=== PATIENT | female | born 1935 ===

== ENCOUNTER 2020-03-09 10:31 | Outpatient (REF) | payer MEDICARE, SELFPAY | END 2020-03-09 10:32 | disposition home or self-care (01) | LOC: HO.LAB 10:31 | PROVIDERS: Visit Provider Internal Medicine | DX: Z20.828 Contact with and (suspected) exposure to other viral communicable diseases (principal) | CPT/HCPCS: C9803; U0003 ==

== ENCOUNTER 2020-03-26 10:41 | Emergency (ER) | payer MEDICARE, SELFPAY ==
[2020-03-26 11:04] VITALS: BP 165/63; BP 167/76; PULSE 90; PULSE 92; RESP 18; TEMP 36.7; O2SAT 98; O2SAT 99; BMI 34.7
--- NOTE | 2020-03-26 11:34 | PC.NURSE ---
pt ambulated to and from restroom 1 assist w steady gait.
--- NOTE | 2020-03-26 12:43 | ED_ITS ---
HPI - Allergic Reaction General Chief complaint: Allergic Reaction Stated complaint: allergic reaction Time Seen by Provider: 03/26/20 12:36 Source: patient Mode of arrival: EMS Limitations: language barrier ([employer]iter used) History of Present Illness HPI narrative: Patient is an 84-year-old Danish-speaking female now with a past medical history of IBS and GERD who was BIBA, stating she she woke up with an itchy swollen lower lip. She states she had her es tea before bed last night as she normally does. She did not eat or drink much yesterday besides that, denies any new foods, lotions, detergents or products. States she drinks es tea every night before bed and has never had an issue. Denies any history of environmental allergies or food allergy. Patient was given 25 mg of Benadryl IM [employer]. She also states her left ear is causing her pain, admits to somewhat reduced hearing, no discharge or fevers. She states she tried to use a Q-tip and got some earwax out but it still hurts. Related Data Home Medications Medication Instructions Recorded Confirmed [id number] 1 cap PO QID 01/26/20 01/26/20 24,000-76,000-120,000 unit capsule,delayed rel acetaminophen 500 mg tablet 0 mg PO 03/10/20 blood sugar diagnostic #10 ea 03/10/20 dulaglutide 0.75 mg/0.5 mL 0.75 mg SUBCUT QWEEK 03/10/20 subcutaneous pen injector insulin glargine U-300 conc 300 20 unit SUBCUT DAILY 03/10/20 unit/mL (1.5 mL) subcutaneous pen meclizine 25 mg tablet 25 mg PO DAILY PRN 03/10/20 pen needle, diabetic 32 gauge x #50 ea 03/10/20 tramadol 50 mg tablet 0 mg PO 03/10/20 trospium 60 mg capsule,extended 60 mg PO DAILY 03/10/20 release 24 hr Previous Rx's Medication Instructions Recorded lisinopril 30 mg tablet 30 mg PO DAILY #90 tab 01/18/20 blood-glucose meter #1 ea 01/27/20 omeprazole 20 mg capsule,delayed 20 mg PO BID #60 cap 02/17/20 release sitagliptin 100 mg tablet 100 mg PO DAILY 90 Days #90 tab 03/07/20 gabapentin 400 mg capsule 400 mg PO BID #180 cap 03/08/20 diphenhydramine HCl [Benadryl 25 mg PO Q6H PRN #30 tab 03/26/20 Allergy] epinephrine [EpiPen 2-Mariano] 0.3 mg IM Q10M PRN #1 ea 03/26/20 Allergies Allergy/AdvReac Type Severity Reaction Status Date / Time Iodinated Contrast Media Allergy Unknown UNKNOWN Verified 03/17/20 09:32 [IV CONTRAST] Review of Systems Review of Systems: Yes all other systems are reviewed and are negative FOR[facility]LY [facility] Past Medical History Surgical History History of ankle surgery History of bilateral cataract extraction History of cholecystectomy History of colonoscopy History of excision of mass Family History Family History Father No problems noted. Mother No problems noted. Family/Other Lung cancer Esophagus cancer Social History Social History Smoking Status: Never smoker Advance Directives: No Advance Directives Information Provided: No Physical Exam Vital Signs: Vital Signs: Last Vital Signs Temp 98.1 F 03/26/20 11:04 Pulse 92 03/26/20 11:04 Resp 18 03/26/20 11:04 BP 165/63 H 03/26/20 11:04 Pulse Ox 99 03/26/20 11:04 Body Mass Index 34.7 Const: General: cooperative, healthy appearing, comfortable, no acute distress and well developed Orientation/consciousness: patient oriented x3 HENMT: Head: Yes normal to inspection Ears: TM normal on the right and left TM abnormal (Completely blocked with earwax) General nose exam: Normal external nose present Face and sinus: Yes normal facial exam Mouth: tongue normal, moist mucous membranes, no audible dysphonia, no drooling, lip abnormal lower swelling; without lacerations, without lesions, without rashes and without fissure, No mouth trauma, no trismus and No restricted motion Teeth and gingiva: gingiva normal Throat: Yes posterior oropharynx normal, Yes tonsils normal, Yes uvula midline and No uvular edema Eyes: General: appearance normal, both eyes and all related structures Pupils: Equal, round and reactive pupils present EOM: EOMs intact bilaterally Neck: Neck: Yes normal visual inspection, Yes full ROM, Yes no lymphadenopathy, Yes trachea midline and Yes supple Resp: Effort & Inspection: normal respiratory effort and able to speak in complete sentences Auscultation: clear to auscultation bilaterally Cardio: Rate: regular rate Rhythm: regular rhythm Skin: General skin exam: no rashes or lesions noted Neuro: General: patient oriented x3 Cranial nerves: Yes Equal, round and reactive pupils present Course Course Course Narrative: 84-year-old Danish-speaking female be IV a after waking up with a swollen and itchy lower lip, also has a left ear pain. Will irrigate left ear. Patient received 25 mg Benadryl IM prior to arrival in the ambulance, will give prednisone and prescriptions for an EpiPen as well as more Benadryl. Had a lengthy discussion utilizing the president & founder about red flag warning signs and when to return to the ER as well as when to use the EpiPen. Explained the pharmacist can show her how to use the EpiPen once she picks it up. Advised to have workup with her primary care doctor as well. Patient verbalized understanding of instructions, when to call 911 and when to use her EpiPen, ans wered all of patient's questions. Procedures Ear Wax Removal Left Ear: Cerumenolytic Used: Colace Results: Re-examined: cerumen removed completely TM Examination: TM(s) intact, normal appearance Ear Canal Exam: atraumatic Patient Tolerated Procedure: well Complications: no problems Technique: ear canal irrigated Discharge Plan Discharge Clinical Impression: Impacted cerumen of left ear Angioedema Qualifiers: Encounter type: initial encounter Qualified Code(s): T78.3XXA - Angioneurotic edema, initial encounter Patient Disposition: Home, Self-Care Instructions: Angioedema (ED) Prescriptions: New diphenhydramine HCl [Benadryl Allergy] 25 mg tablet 25 mg PO Q6H PRN (Reason: allergic symptoms) Qty: 30 RF: 0 epinephrine [EpiPen 2-Mariano] 0.3 mg/0.3 mL auto-injector 0.3 mg IM Q10M PRN (Reason: anaphylaxis) Qty: 1 RF: 0 No Action lisinopril 30 mg tablet 30 mg PO DAILY Qty: 90 RF: 0 (DME) blood-glucose meter [FreeStyle Seymour Lite] Kit See Rx Instructions .ROUTE .MEDSUPPLY Qty: 1 RF: 0 omeprazole 20 mg capsule,delayed release(DR/EC) 20 mg PO BID Qty: 60 RF: 1 sitagliptin 100 mg tablet 100 mg PO DAILY 90 Days Qty: 90 RF: 0 gabapentin 400 mg capsule 400 mg PO BID Qty: 180 RF: 1 trospium 60 mg capsule,extended release 24hr 60 mg PO DAILY RF: 0 Toujeo SoloStar U-300 Insulin 300 unit/mL (1.5 mL) insulin pen 20 unit subcut DAILY RF: 0 (DME) FreeStyle Lite Strips Strip See Rx Instructions ea Not Applicable BID Qty: 10 RF: 0 meclizine 25 mg tablet 25 mg PO DAILY PRNRF: 0 Trulicity 0.75 mg/0.5 mL pen injector 0.75 mg subcut QWEEK RF: 0 acetaminophen 500 mg tablet 0 mg PO RF: 0 tramadol 50 mg tablet 0 mg PO RF: 0 (DME) pen needle, diabetic 32 gauge x 5/32 needle See Rx Instructions ea .ROUTE .MEDSUPPLY Qty: 50 RF: 0 Creon 24,000-76,000 -120,000 unit capsule,delayed release(DR/EC) 1 cap PO QID RF: 0 Referrals: Brit Mills MD [Physician] - 2 days (allergic reaction work up, epi pen rx'd) Print Language: Danish
[2020-03-26] MEDS: Docusate Sodium 100 MG/10 ML LIQUID PO (13:01)
[2020-03-26] MEDS: predniSONE 20 MG TABLET 40 MG PO (13:01)
--- NOTE | 2020-03-26 13:46 | PC.NURSE ---
pt ear irrigated w colace by mlp at bedside. medicated w prednisone per emar, plan for discharge w prescriptions.
== END 2020-03-26 13:48 | disposition home or self-care (01) ==
PROVIDERS: Emergency Provider Emergency Medicine Emergency Medical Services
DX: T78.3XXA Angioneurotic edema, initial encounter (principal); X58.XXXA Exposure to other specified factors, initial encounter; H61.22 Impacted cerumen, left ear
CPT/HCPCS: 69209; 99283

== ENCOUNTER 2020-07-11 14:57 | Outpatient (REF) | payer MEDICARE, SELFPAY ==
--- NOTE | 2020-07-11 15:07 | ECG_ITS ---
Test Reason : PREOP Blood Pressure : / mmHG Vent. Rate : 092 BPM Atrial Rate : 092 BPM P-R Int : 160 ms QRS Dur : 144 ms QT Int : 398 ms P-R-T Axes : 049 -08 086 degrees QTc Int : 492 ms Normal sinus rhythm Left bundle branch block Abnormal ECG When compared with ECG of 07-OCT-2019 15:45, No significant change was found Referred By: Rico Deras Electronically Signed By:JORGE LIAO
[2020-07-11 15:40] LABS: Hematocrit 31.3 % (37-47); Hemoglobin 9.9 g/dl (12.0-16.0); Mean Corpuscular HGB Conc 31.6 g/dl (31.0-35.0); Mean Corpuscular Hemoglobin 29.5 pg (27.0-33.0); Mean Corpuscular Volume 93.2 fL (80-98); Mean Platelet Volume 10.2 fL (9.4-12.3); Platelet Count 239 X10*3/uL (160-400); Red Blood Count 3.36 X10*6/uL (4.20-5.50); Red Cell Distribution Width 12.7 % (11.0-16.0); White Blood Count 5.5 X10*3/uL (4.8-10.8)
[2020-07-11 15:58] LABS: Estimated Average Glucose 117 mg/dL; Hemoglobin A1c % 5.7 %
[2020-07-11 16:05] LABS: Alanine Aminotransferase 19 U/L (0-31); Albumin Level 4.3 g/dL (3.5-5.0); Alkaline Phosphatase 100 U/L (39-117); Anion Gap 11 (12-20); Aspartate Amino Transferase 20 U/L (5-31); Bilirubin Direct < 0.2 mg/dL (0.0-0.5); Bilirubin Total 0.3 mg/dL (0.0-1.0); Blood Urea Nitrogen 18 mg/dL (9-16); Calcium 8.8 mg/dL (8.4-10.2); Carbon Dioxide 27 mmol/L (22-29); Chloride 106 mmol/L (96-108); Cholesterol 140 mg/dL; Estimated Glomerular Filt Rate 56; Glucose Random 117 mg/dL (60-115); HDL Cholesterol 31 mg/dL; LDL Cholesterol Calculated 60 mg/dl; Sodium 139 mmol/L (135-145); Total Protein 7.1 g/dL (6.5-8.0); Triglycerides 248 mg/dL
[2020-07-11 16:26] LABS: Thyroid Stimulating Hormone 1.25 uIU/mL (0.32-4.0)
== END 2020-07-11 14:58 | disposition home or self-care (01) ==
LOC: HO.LAB 14:57
PROVIDERS: PCP Internal Medicine; Visit Provider Internal Medicine
DX: Z01.818 Encounter for other preprocedural examination (principal); E11.9 Type 2 diabetes mellitus without complications
CPT/HCPCS: 36415; 80048; 80061; 80076; 83036; 84443; 85027; 93005

== ENCOUNTER → 2020-08-23 09:02 | Outpatient (BNVA) | payer MEDICARE, SELFPAY | PROVIDERS: PCP Internal Medicine; Referring Provider Internal Medicine; Visit Provider Internal Medicine Cardiovascular Disease | DX: Z01.810 Encounter for preprocedural cardiovascular examination (principal); I11.9 Hypertensive heart disease without heart failure; I44.7 Left bundle-branch block, unspecified | CPT/HCPCS: 99212 ==

== ENCOUNTER → 2020-09-27 10:16 | Outpatient (REF) | payer MEDICARE, SELFPAY ==
--- NOTE | ~2020-09-27 | NM_ITS ---
Lexiscan Myocardial perfusion study Indication: Abnormal EKG, left bundle branch block, preoperative evaluation, assess for coronary disease and ischemia Technique: The patient was brought in for a Lexiscan perfusion study on 09/27/2020 and was injected 0.4 mg of Lexiscan intravenously. Within a minute of this injection 25 mCi of sestamibi was given intravenously. Images were obtained using the SPECT gamma camera interlaced with the gating device. Images were obtained in supine position. Resting perfusion study was performed on 09/28/2020. Patient was administered 25 mCi of sestamibi intravenously at rest. Images were then obtained in supine position. Total DLP 102mGy-cm. Images were processed with the software and compared side to side in short axis, horizontal long axis and vertical long axis views. Findings: Raw acquisition was reviewed. The stress perfusion study showed mildly diminished tracer uptake in the distal part of inferior wall. With CT attenuation correction this is still seen. The gated study shows normal LV systolic function with calculated LVEF of 63%. LV cavity is normal in size. The gated study shows normal wall thickening and contraction of segments. Resting study shows no significant perfusion abnormality. With attenuation correction, there is a small apical inferior defect. Gating at rest reveals normal wall motion with ejection fraction at 63%. The findings are consistent with small apical inferior fixed defect that is probably artifactual. No reversible defects. NM/NM claritza perf SPECT rest & str Impression: 1. Myocardial perfusion imaging study shows no definitive evidence of any ischemia or infarction. Likely normal perfusion. 2. Gated LVEF is 63% during stress and 56% during rest. 3. Transient ischemic dilatation not present. EKG component of the test reported separately.
--- NOTE | 2020-09-27 10:30 | CA_ITS ---
Acquisition Time: 2020-09-27 10:28:13 Total Exercise Time: 00:02:00 Test Indications: ABN EKG, SOB, LBBB, PREOP Medications: SEE CHART Protocol: LEXISCAN Max HR: 103 BPM 75% of Pred: 136 BPM Max BP: 130/060 mmHG Max Work Load: 1.0 METS Pharmacological stress test with Lexiscan injection, while sitting, without anginal symptoms, with isolated PVCs, with normotensive response to injection, with nondiagnostic EKG for ischemia. In recovery she reported headache and blurred vision that was treated with Aminophylline 75mg IVP to reverse Lexican with resolution of symptoms. Nuclear images pending. Test reviewed with Dr Gunn. Referred By: Fredo Gunn Overread By: PRABHU PALM
== END ==
LOC: HO.CARD 10:16
PROVIDERS: Visit Provider Internal Medicine Cardiovascular Disease
DX: Z01.810 Encounter for preprocedural cardiovascular examination (principal); I44.7 Left bundle-branch block, unspecified
CPT/HCPCS: 78452; 93017; A9500; J0280; J2785

== ENCOUNTER → 2020-10-10 11:12 | Outpatient (BNVA) | payer MEDICARE, SELFPAY | PROVIDERS: PCP Internal Medicine; Visit Provider Internal Medicine Cardiovascular Disease | DX: Z01.810 Encounter for preprocedural cardiovascular examination (principal); I11.9 Hypertensive heart disease without heart failure | CPT/HCPCS: Q3014 ==

== ENCOUNTER 2020-12-16 11:42 | Outpatient (REF) | payer MEDICARE, SELFPAY ==
[2020-12-16 12:10] LABS: MANUAL DIFF FLAG NO
[2020-12-16 12:14] LABS: Basophils Percent Auto 0.2 % (0-2); Eosinophils Absolute Auto 0.1 X10*3/uL (0.0-0.4); Eosinophils Percent Auto 2.2 % (0-4); Hematocrit 30.2 % (37-47); Hemoglobin 9.8 g/dl (12.0-16.0); Imm Gran Abs Auto 0.01 X10*3/uL (0.00-0.03); Imm Gran Pct Auto 0.2 % (0.0-0.4); Lymphocytes Absolute Auto 1.4 X10*3/uL (1.2-4.9); Lymphocytes Percent Auto 29.3 % (20-40); Mean Corpuscular HGB Conc 32.5 g/dl (31.0-35.0); Mean Corpuscular Hemoglobin 29.7 pg (27.0-33.0); Mean Corpuscular Volume 91.5 fL (80-98); Mean Platelet Volume 10.1 fL (9.4-12.3); Monocytes Absolute Auto 0.3 X10*3/uL (0.1-1.2); Monocytes Percent Auto 7.4 % (2-11); Neutrophils Absolute Auto 2.8 X10*3/uL (2.0-8.3); Neutrophils Percent Auto 60.7 % (45-73); Platelet Count 204 X10*3/uL (160-400); Red Cell Distribution Width 12.5 % (11.0-16.0); White Blood Count 4.6 X10*3/uL (4.8-10.8)
[2020-12-16 12:45] LABS: INTERNATIONAL NORM RATIO 0.9 (0.9-1.1); Prothrombin Time 10.2 SEC (9.9-13.0)
[2020-12-16 13:19] LABS: Folate 17.1 ng/mL (> or = 4.0); Vitamin B12 514 pg/mL (200-900)
[2020-12-16 13:21] LABS: Partial Thromboplastin Time 23.6 SEC (24.1-38.0)
[2020-12-16 13:26] LABS: Alanine Aminotransferase 14 U/L (0-31); Albumin Level 4.1 g/dL (3.5-5.0); Alkaline Phosphatase 94 U/L (39-117); Anion Gap 10 (12-20); Aspartate Amino Transferase 19 U/L (5-31); Bilirubin Total 0.4 mg/dL (0.0-1.0); Blood Urea Nitrogen 16 mg/dL (9-16); Calcium 8.9 mg/dL (8.4-10.2); Carbon Dioxide 26 mmol/L (22-29); Chloride 108 mmol/L (96-108); Estimated Glomerular Filt Rate > 60; Glucose Random 85 mg/dL (60-115); Iron 68 mcg/dL (30-160); Percent Iron Saturation 22 % (15-50); Potassium 5.4 mmol/L (3.3-5.1); Sodium 139 mmol/L (135-145); Total Iron Binding Capacity 309 mcg/dL (228-428); Total Protein 6.7 g/dL (6.5-8.0); Unsaturated Iron Binding 241 ug/dL
== END 2020-12-16 11:43 | disposition home or self-care (01) ==
LOC: HO.LAB 11:42
PROVIDERS: PCP Internal Medicine; Visit Provider Internal Medicine
DX: Z01.818 Encounter for other preprocedural examination (principal); D50.9 Iron deficiency anemia, unspecified; D64.9 Anemia, unspecified; E53.8 Deficiency of other specified B group vitamins
CPT/HCPCS: 36415; 80053; 82607; 82746; 83540; 85025; 85610; 85730

== ENCOUNTER 2021-08-11 09:33 | Outpatient (REF) | payer OTHER, SELFPAY ==
--- NOTE | ~2021-08-11 | FL_ITS ---
EXAMINATION: XR FLUOROSCOPY UPPER GI WITH AIR CLINICAL INFORMATION: Dysphagia COMPARISON: None TECHNIQUE: Upper GI was performed using thin and thick barium and effervescent granules. Exam is limited due to difficult patient mobility. 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 There is fold thickening in the stomach. No mass, stricture or ulcer is seen. There is gastroesophageal reflux. No hernia is seen. There is a duodenal diverticulum. FLUOROSCOPY TIME: 1.7 minutes DOSE AREA PRODUCT: 13.6 g/cm2. 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 Gastroesophageal reflux. Limited evaluation of the stomach and duodenum due to difficult patient mobility. There is question of fold thickening of the stomach.
== END 2021-08-11 09:34 | disposition home or self-care (01) ==
LOC: HO.XRAY 09:33
PROVIDERS: PCP Internal Medicine; Visit Provider Internal Medicine Gastroenterology
DX: R13.10 Dysphagia, unspecified (principal)
CPT/HCPCS: 74246

== ENCOUNTER 2021-09-12 10:53 | Outpatient (REF) | payer OTHER, SELFPAY ==
[2021-09-12 11:52] LABS: Appearance Urine HAZY; Color Urine YELLOW; Glucose Urine UA NEG (NEG); Leukocyte Esterase Urine 1+ (NEG); Nitrite Urine NEG (NEG); Specific Gravity - Urine 1.015 (1.005-1.025); Urine Blood TRACE (NEG); Urine Ketones NEG (NEG); Urine Protein 1+ MG/DL (NEG-TRACE)
[2021-09-12 11:52] LABS: Hematocrit 31.7 % (37.0-47.0); Hemoglobin 10.2 g/dl (12.0-16.0); Mean Corpuscular HGB Conc 32.2 g/dl (31.0-35.0); Mean Corpuscular Hemoglobin 29.5 pg (27.0-33.0); Mean Corpuscular Volume 91.6 fL (80.0-98.0); Mean Platelet Volume 10.5 fL (9.4-12.3); Platelet Count 235 X10*3/uL (160-400); Red Blood Count 3.46 X10*6/uL (4.20-5.50); White Blood Count 5.3 X10*3/uL (4.8-10.8)
[2021-09-12 11:57] LABS: Alanine Aminotransferase 12 U/L (0-31); Albumin Level 4.2 g/dL (3.5-5.0); Alkaline Phosphatase 102 U/L (39-117); Anion Gap 12 (12-20); Aspartate Amino Transferase 17 U/L (5-31); Bilirubin Direct < 0.2 mg/dL (0.0-0.5); Bilirubin Total 0.2 mg/dL (0.0-1.0); Blood Urea Nitrogen 22 mg/dL (9-16); Calcium 9.1 mg/dL (8.4-10.2); Carbon Dioxide 27 mmol/L (22-29); Chloride 105 mmol/L (96-108); Cholesterol 184 mg/dL; Estimated Glomerular Filt Rate 59; Glucose Random 110 mg/dL (60-115); HDL Cholesterol 26 mg/dL; Potassium 5.6 mmol/L (3.3-5.1); Sodium 138 mmol/L (135-145); Total Protein 7.4 g/dL (6.5-8.0); Triglycerides 658 mg/dL
[2021-09-12 12:19] LABS: Thyroid Stimulating Hormone 1.06 uIU/mL (0.32-4.0)
[2021-09-12 12:41] LABS: Bacteria Urine 2+ /LPF; Mucus Urine 1+ /LPF; RBC Urine 0-2 /HPF (0); Squamous Epithelial Cell Urine TRACE /LPF
== END 2021-09-12 10:54 | disposition home or self-care (01) ==
LOC: HO.LAB 10:53
PROVIDERS: PCP Internal Medicine; Visit Provider Internal Medicine
DX: D64.9 Anemia, unspecified (principal)
CPT/HCPCS: 36415; 80048; 80061; 80076; 81001; 84443; 85027

== ENCOUNTER 2021-11-15 19:34 | Emergency (ER) | payer OTHER, SELFPAY ==
--- NOTE | ~2021-11-15 | XR_ITS ---
EXAMINATION: XR CHEST CLINICAL INFORMATION: This is an 86-year-old female with chest pain. COMPARISON: None TECHNIQUE: Frontal view of the chest was obtained. FINDINGS: There is mild cardiomegaly. There are bilateral peripheral increased interstitial lung markings evident. This could represent interstitial edema or inflammation. No consolidation is seen. There is no pneumothorax. The diaphragm is sharp and no effusions are seen. Degenerative changes are noted within the glenohumeral joints bilaterally. XR/XR chest 1V IMPRESSION: 1. Mild cardiomegaly with increased interstitial lung markings. The possibility of interstitial edema should be considered.
--- NOTE | ~2021-11-15 | CT_ITS ---
EXAMINATION: CT HEAD WITHOUT CONTRAST CLINICAL INFORMATION: Dizziness COMPARISON: 03/28/2019 TECHNIQUE: Contiguous axial imaging was performed from the skull base to vertex without intravenous contrast. This CT examination was performed using dose optimization techniques as appropriate, variously including the following: * Automated exposure control * Adjustment of mA and/or kV according to patient size (this includes techniques or standardized protocols for targeted exams where dose is matched to indication/reason for exam; i.e. extremities or head) Use of iterative reconstruction technique DLP: 630 mGy-cm. FINDINGS: There is no evidence of acute intracranial hemorrhage or territorial infarction. No abnormal mass effect or midline shift is seen. Tran to white matter differentiation is well preserved. No extra-axial fluid collections are identified. No hydrocephalus. Proportional prominence of the ventricles and sulcal spaces is consistent with mild volume loss. Patchy periventricular and deep white matter hypoattenuation is consistent with moderate small vessel ischemic changes. The osseous structures and soft tissues are normal. The mastoid air cells and visualized portions of the paranasal sinuses are well aerated. CT/CT head/brain wo con IMPRESSION: No acute intracranial pathology. Chronic volume loss with small vessel ischemic change.
[2021-11-15 19:44] VITALS: BP 127/55; PULSE 98; RESP 18; TEMP 36.7; O2SAT 98; BMI 28.3
--- NOTE | 2021-11-15 19:49 | ECG_ITS ---
Test Reason : chest pain Blood Pressure : / mmHG Vent. Rate : 087 BPM Atrial Rate : 087 BPM P-R Int : 166 ms QRS Dur : 148 ms QT Int : 416 ms P-R-T Axes : 039 -09 107 degrees QTc Int : 500 ms Normal sinus rhythm Left bundle branch block Abnormal ECG When compared with ECG of 11-JUL-2020 15:13, No significant change was found Referred By: Generic ED Physician Electronically Signed By:KEREN DENISE
[2021-11-15 20:13] LABS: MANUAL DIFF FLAG NO
[2021-11-15 20:16] LABS: Basophils Percent Auto 0.3 % (0-2); Eosinophils Absolute Auto 0.1 X10*3/uL (0.0-0.4); Eosinophils Percent Auto 1.7 % (0-4); Hematocrit 29.4 % (37.0-47.0); Hemoglobin 9.9 g/dl (12.0-16.0); Imm Gran Abs Auto 0.02 X10*3/uL (0.00-0.03); Imm Gran Pct Auto 0.3 % (0.0-0.4); Lymphocytes Absolute Auto 1.6 X10*3/uL (1.2-4.9); Mean Corpuscular HGB Conc 33.7 g/dl (31.0-35.0); Mean Corpuscular Volume 92.2 fL (80.0-98.0); Mean Platelet Volume 11.3 fL (9.4-12.3); Monocytes Absolute Auto 0.5 X10*3/uL (0.1-1.2); Monocytes Percent Auto 6.5 % (2-11); Neutrophils Absolute Auto 4.8 x10*3/uL (2.0-8.3); Neutrophils Percent Auto 68.2 % (45-73); Platelet Count 209 X10*3/uL (160-400); Red Blood Count 3.19 X10*6/uL (4.20-5.50); Red Cell Distribution Width 12.9 % (11.0-16.0)
[2021-11-15 20:30] LABS: COVID-19 Test Negative (Negative); IDNOW Serial# 55D5AD1C
[2021-11-15 20:32] LABS: Anion Gap 14 (12-20); Blood Urea Nitrogen 26 mg/dL (9-16); Calcium 8.6 mg/dL (8.4-10.2); Carbon Dioxide 24 mmol/L (22-29); Chloride 108 mmol/L (96-108); Creatinine Clr Calc Pharmacy 37.3; Estimated Glomerular Filt Rate 49; Glucose Random 201 mg/dL (60-115); Potassium 5.1 mmol/L (3.3-5.1); Sodium 141 mmol/L (135-145)
[2021-11-15 20:43] LABS: Troponin-I High Sensitivity 145.1 ng/L (<3.5-17.0)
--- NOTE | 2021-11-15 20:58 | ED.CHESTPAIN ---
HPI - Chest Pain General Chief Complaint: Chest Pain Stated Complaint: body aches, dizziness Time Seen by Provider: 11/15/21 20:58 Source: patient, family and motor vehicle parts interpreter Mode of arrival: ambulatory History of Present Illness HPI narrative: 86-year-old female with history of diabetes, high blood pressure, as well as dizziness who presents to the emergency room with worsening dizziness from her baseline since yesterday. Patient reports that she has been dizzy for ?a long time? and that she takes meclizine for this and typically throughout the day feels otherwise well. She describes this dizziness as the room spinning and that it is primarily when she changes position from sitting to standing. Patient states that yesterday she took her medication, but noted she did not have any improvement in her symptoms. She denies any recent fever, chills, new cough, sore throat, shortness of breath, chest pain/palpitations and denies any GI symptoms but states she has noted urinary frequency. In terms of her ambulation, patient states that she has had difficulty with walking for over 4 months now. Otherwise, patient denies any changes in hearing, vision, speech but has noted that she has a headache during the times that she is feeling dizzy. Otherwise, she denies any unilateral numbness/tingling/weakness. Related Data Home Medications Medication Instructions Recorded Confirmed acetaminophen 500 mg tablet 500 mg PO Q8H 11/09/21 mirabegron 25 mg tablet,extended 25 mg PO DAILY 11/09/21 release 24 hr (Myrbetriq) Previous Rx's Medication Instructions Recorded blood-glucose meter (FreeStyle #1 ea 01/27/20 [place] Lite kit) epinephrine 0.3 mg/0.3 mL 0.3 mg (0.3 mL) IM Q10M PRN 03/26/20 injection, auto-injector (EpiPen anaphylaxis #1 ea 2-Mariano) blood pressure monitor (Blood #1 ea 06/06/20 Pressure Kit) blood sugar diagnostic (FreeStyle 1 strip miscellaneous BID for 08/31/20 Lite Strips) diabetes mellitus #100 strips pen needle, diabetic 32 gauge x 1 ea miscellaneous DAILY #100 ea 09/08/2032 (BD Alisa 2nd Gen Pen Needle) omeprazole 20 mg capsule,delayed 20 mg PO DAILY #90 caps 04/20/21 release commode (bedside commode) #1 ea 06/12/21 diaper,brief,adult,disposable #100 ea 06/12/21 amlodipine 5 mg tablet 5 mg PO DAILY #90 tabs 06/16/21 insulin glargine U-300 conc 300 20 unit (0.0667 mL) subcut DAILY 08/09/21 unit/mL (1.5 mL) subcutaneous pen #3 mL (Toujeo SoloStar U-300 Insulin) sitagliptin 100 mg tablet (Januvia) 100 mg PO DAILY #90 tabs 08/24/21 gabapentin 400 mg capsule 400 mg PO BID #180 caps 09/28/21 tramadol 50 mg tablet 50 mg PO BID PRN pain 30 days #60 09/28/21 tabs dulaglutide 0.75 mg/0.5 mL 0.75 mg (0.5 mL) subcut QWEEK #12 10/31/21 subcutaneous pen injector mL (Trulicity) losartan 50 mg tablet 50 mg PO DAILY #90 tabs 11/09/21 Allergies Allergy/AdvReac Type Severity Reaction Status Date / Time Iodinated Contrast Media Allergy Unknown UNKNOWN Verified 11/15/21 19:43 [IV CONTRAST] Review of Systems Review of Systems: Pertinent positives and negatives as stated in HPI 10 point review of systems is otherwise negative. [facility] Past Medical History Source: nursing notes reviewed Medical History Bladder prolapse Chronic kidney disease, stage III (moderate) Diabetes mellitus GERD (gastroesophageal reflux disease) Hypertensive heart disease Left bundle branch block Mixed hyperlipidemia Obesity (BMI 30-39.9) Surgical History History of ankle surgery History of bilateral cataract extraction History of bladder repair surgery History of cholecystectomy History of colonoscopy History of ERCP History of excision of mass Family History Family History Father No problems noted. Mother No problems noted. Family/Other Lung cancer Esophagus cancer Other Mental health disorder Substance use disorder Social History Social History Housing: House Alcohol intake: never Patient Tobacco Use Status: Former Tobacco user e-Cigarette/Vaping Use: Never Used Second Hand Smoke Exposure: Yes Advance Directives: Yes Advance Directives Information Provided: No Advance Directives on File: No service: No Current occupational status: disabled Cognitive needs: Yes (cane/walker) Hearing needs: No Vision needs: Yes (glasses) Physical Exam Vital Signs: Vital Signs: Last Vital Signs Temp 98.7 F 11/15/21 21:06 Pulse 88 11/16/21 04:16 Resp 18 11/16/21 04:16 BP 177/67 H 11/16/21 04:16 Pulse Ox 97 11/16/21 04:16 O2 Del Method 11/16/21 04:16 BMI result Body Mass Index 28.3 VITAL SIGNS: Reviewed. GENERAL: Well developed, well nourished, in no acute distress. HEAD: Normocephalic/atraumatic EYES: PERRLA, EOMI EARS: Ext canals without abnormality NOSE: Nares patent bilateral OROPHARYNX: no oral lesions noted, posterior pharynx clear NECK: Supple, no adenopathy LUNGS: Normal breath sounds. No adventitious sounds or accessory muscle use. SpO2<98> CARDIOVASCULAR: Regular rate and rhythm without noted murmurs, no JVD or lower extremity edema. ABDOMEN: Soft, non-tender, non-distended with bowel sounds. MUSCULOSKELETAL: No tenderness, deformities, or effusions noted on gross inspection. EXTREMITIES: No cyanosis, clubbing or edema. SKIN: Inspection of the skin reveals no rashes NEUROLOGIC: Alert and oriented x 4. Strength and sensation to light touch were grossly intact x 4, no facial asymmetry, no pronator drift, cranial nerves 2-12 are grossly intact. Course Course Course Narrative: 86-year-old female with history and clinical presentation consistent with possible infectious etiology although will need to evaluate further for this and at worst possible posterior stroke that is at this point subacute in nature and felt to be far less likely. Patient has no gross motor or sensory deficits. Review of all investigations with elevated troponin and no comparison, but not associated with acute changes on EKG and patient is asymptomatic for chest pain/palpitations/shortness of breath. Although initially discuss this patient's case with the inpatient hospitalist patient was noted to have positive orthostatics, received 500 cc of IV fluids, and on re-evaluation with ambulation patient states that she feels much better. This was discussed further with the inpatient hospitalist is and patient was informed of all results and plans and will be discharged home in stable condition with instructions to follow-up with her primary care provider. Neurologic etiology is still felt to be unlikely, I did discuss the troponin variations with Cardiology and agree that these are essentially flat especially taken in the context that the patient is not experiencing chest pain nor is she experiencing any associated cardiac symptoms such as diaphoresis/shortness of breath/palpitations. Patient is otherwise discharged home in stable condition with strict instructions for her follow-up with her primary care provider. MDM - Chest Pain Lab Data Result diagrams: 11/15/21 19:55 11/15/21 19:55 Labs: Lab Results 11/15/21 11/15/21 11/15/21 Range/Units 19:55 19:55 19:55 WBC 7.0 (4.8-10.8) X10*3/uL RBC 3.19 L (4.20-5.50) X10*6/uL Hgb 9.9 L (12.0-16.0) g/dl Hct 29.4 L (37.0-47.0) % MCV 92.2 (80.0-98.0) fL MCH 31.0 (27.0-33.0) pg MCHC 33.7 (31.0-35.0) g/dl RDW 12.9 (11.0-16.0) % Plt Count 209 (160-400) X10*3/uL MPV 11.3 (9.4-12.3) fL Immature Gran % (Auto) 0.3 (0.0-0.4) % Neut % (Auto) 68.2 (45-73) % Lymph % (Auto) 23.0 (20-40) % Chaves % (Auto) 6.5 (2-11) % Eos % (Auto) 1.7 (0-4) % Baso % (Auto) 0.3 (0-2) % Lymph # (Auto) 1.6 (1.2-4.9) X10*3/uL Chaves # (Auto) 0.5 (0.1-1.2) X10*3/uL Eos # (Auto) 0.1 (0.0-0.4) X10*3/uL Baso # (Auto) 0.0 (0.0-0.2) X10*3/uL Abs Immat Gran (auto) 0.02 (0.00-0.03) X10*3/uL Absolute Neuts (auto) 4.8 (2.0-8.3) x10*3/uL Absolute Nucleated RBC 0.000 (0.0-0.012) X10*3/uL Nucleated RBC % (auto) 0.0 (0.0-0.2) /100WBC Sodium 141 (135-145) mmol/L Potassium 5.1 (3.3-5.1) mmol/L Chloride 108 (96-108) mmol/L Carbon Dioxide 24 (22-29) mmol/L Anion Gap 14 (12-20) BUN 26 H (9-16) mg/dL Creatinine 1.07 (0.5-1.4) mg/dL Estim Creat Clear Calc 37.3 Estimated GFR 49 Random Glucose 201 H (60-115) mg/dL Calcium 8.6 (8.4-10.2) mg/dL Troponin I High Sens 145.1 H* (<3.5-17.0) ng/L B-Natriuretic Peptide (<100) pg/mL Urine Color Urine Appearance Urine pH (5.0-8.0) Ur Specific Fletcher (1.005-1.025) Urine Protein (Neg-Trace) mg/dL Urine Glucose (UA) (Negative) mg/dL Urine Ketones (Negative) mg/dL Urine Blood (Negative) Urine Nitrite (Negative) Ur Leukocyte Esterase (Negative) COVID-19 (JOSE) (Negative) COVID-19 Clin Com 11/15/21 11/15/21 11/15/21 Range/Units 19:55 21:58 22:01 WBC (4.8-10.8) X10*3/uL RBC (4.20-5.50) X10*6/uL Hgb (12.0-16.0) g/dl Hct (37.0-47.0) % MCV (80.0-98.0) fL MCH (27.0-33.0) pg MCHC (31.0-35.0) g/dl RDW (11.0-16.0) % Plt Count (160-400) X10*3/uL MPV (9.4-12.3) fL Immature Gran % (Auto) (0.0-0.4) % Neut % (Auto) (45-73) % Lymph % (Auto) (20-40) % Chaves % (Auto) (2-11) % Eos % (Auto) (0-4) % Baso % (Auto) (0-2) % Lymph # (Auto) (1.2-4.9) X10*3/uL Chaves # (Auto) (0.1-1.2) X10*3/uL Eos # (Auto) (0.0-0.4) X10*3/uL Baso # (Auto) (0.0-0.2) X10*3/uL Abs Immat Gran (auto) (0.00-0.03) X10*3/uL Absolute Neuts (auto) (2.0-8.3) x10*3/uL Absolute Nucleated RBC (0.0-0.012) X10*3/uL Nucleated RBC % (auto) (0.0-0.2) /100WBC Sodium (135-145) mmol/L Potassium (3.3-5.1) mmol/L Chloride (96-108) mmol/L Carbon Dioxide (22-29) mmol/L Anion Gap (12-20) BUN (9-16) mg/dL Creatinine (0.5-1.4) mg/dL Estim Creat Clear Calc Estimated GFR Random Glucose (60-115) mg/dL Calcium (8.4-10.2) mg/dL Troponin I High Sens 119.3 H* (<3.5-17.0) ng/L B-Natriuretic Peptide 47 (<100) pg/mL Urine Color Yellow Urine Appearance Clear Urine pH 5.5 (5.0-8.0) Ur Specific Fletcher 1.010 (1.005-1.025) Urine Protein Negative (Neg-Trace) mg/dL Urine Glucose (UA) Negative (Negative) mg/dL Urine Ketones Negative (Negative) mg/dL Urine Blood Negative (Negative) Urine Nitrite Negative (Negative) Ur Leukocyte Esterase Negative (Negative) COVID-19 (JOSE) Negative (Negative) COVID-19 Clin Com See Note 11/16/21 Range/Units 06:09 WBC (4.8-10.8) X10*3/uL RBC (4.20-5.50) X10*6/uL Hgb (12.0-16.0) g/dl Hct (37.0-47.0) % MCV (80.0-98.0) fL MCH (27.0-33.0) pg MCHC (31.0-35.0) g/dl RDW (11.0-16.0) % Plt Count (160-400) X10*3/uL MPV (9.4-12.3) fL Immature Gran % (Auto) (0.0-0.4) % Neut % (Auto) (45-73) % Lymph % (Auto) (20-40) % Chaves % (Auto) (2-11) % Eos % (Auto) (0-4) % Baso % (Auto) (0-2) % Lymph # (Auto) (1.2-4.9) X10*3/uL Chaves # (Auto) (0.1-1.2) X10*3/uL Eos # (Auto) (0.0-0.4) X10*3/uL Baso # (Auto) (0.0-0.2) X10*3/uL Abs Immat Gran (auto) (0.00-0.03) X10*3/uL Absolute Neuts (auto) (2.0-8.3) x10*3/uL Absolute Nucleated RBC (0.0-0.012) X10*3/uL Nucleated RBC % (auto) (0.0-0.2) /100WBC Sodium (135-145) mmol/L Potassium (3.3-5.1) mmol/L Chloride (96-108) mmol/L Carbon Dioxide (22-29) mmol/L Anion Gap (12-20) BUN (9-16) mg/dL Creatinine (0.5-1.4) mg/dL Estim Creat Clear Calc Estimated GFR Random Glucose (60-115) mg/dL Calcium (8.4-10.2) mg/dL Troponin I High Sens 178.9 H* (<3.5-17.0) ng/L B-Natriuretic Peptide (<100) pg/mL Urine Color Urine Appearance Urine pH (5.0-8.0) Ur Specific Fletcher (1.005-1.025) Urine Protein (Neg-Trace) mg/dL Urine Glucose (UA) (Negative) mg/dL Urine Ketones (Negative) mg/dL Urine Blood (Negative) Urine Nitrite (Negative) Ur Leukocyte Esterase (Negative) COVID-19 (JOSE) (Negative) COVID-19 Clin Com ECG Data ECG #1: Attestation: I personally reviewed and interpreted this ECG as follows: Prior ECG tracings: available for review Interpretation: SR, HR-87, LBBB, no STEMI, CO within normal limits, QRS/QTC are prolonged. ECG #2: Attestation: I personally reviewed and interpreted this ECG as follows: Prior ECG tracings: available for review Interpretation: Sinus rhythm, HR-82, LBBB, no STEMI, CO/QTC are within normal limits. Discharge Plan Discharge Clinical Impression: Dizziness, Gait instability, Elevated troponin, Volume depletion Patient Disposition: Home, Self-Care Instructions: Dizziness (ED), Lightheadedness (ED), Vertigo (ED), High Troponin Levels (ED), Dehydration (ED) Additional Instructions: 1. Reanudar todos los medicamentos caseros. 2. Contin?e bebiendo dannie agua. 3. Andre un seguimiento con de león proveedor de atenci?n primaria llamando a la oficina hoy y programando luke maegan para luke reevaluaci?n. Regrese a la gordy de emergencias si los s?ntomas empeoran. Prescriptions: No Action (DME) blood-glucose meter [FreeStyle [place] Lite] Kit See Rx Instructions .ROUTE .MEDSUPPLY Qty: 1 0RF Rx Instructions: As directed (DME) blood pressure monitor [Blood Pressure Kit] Kit See Rx Instructions .ROUTE .MEDSUPPLY Qty: 1 0RF Rx Instructions: As directed FreeStyle Lite Strips Strip 1 strip miscellaneous BID Qty: 100 0RF pen needle, diabetic [BD Alisa 2nd Gen Pen Needle] 32 gauge x 5/32 needle 1 ea miscellaneous DAILY Qty: 100 1RF (DME) bedside commode Kit See Rx Instructions .Route Qty: 1 0RF Rx Instructions: As directed (DME) diaper,brief,adult,disposable Misc See Rx Instructions .Route Qty: 100 0RF Rx Instructions: As directed amlodipine 5 mg tablet 5 mg PO DAILY Qty: 90 1RF Zoë GainseoStar U-300 Insulin 300 unit/mL (1.5 mL) insulin pen 20 unit subcut DAILY Qty: 3 0RF Januvia 100 mg tablet 100 mg PO DAILY Qty: 90 1RF tramadol 50 mg tablet 50 mg PO BID PRN (Reason: pain) 30 Days Qty: 60 0RF gabapentin 400 mg capsule 400 mg PO BID Qty: 180 0RF Trulicity 0.75 mg/0.5 mL pen injector 0.75 mg subcut QWEEK Qty: 12 0RF epinephrine [EpiPen 2-Mariano] 0.3 mg/0.3 mL auto-injector 0.3 mg IM Q10M PRN (Reason: anaphylaxis) Qty: 1 0RF Rx Instructions: for 2 doses acetaminophen 500 mg tablet 500 mg PO Q8H Myrbetriq 25 mg tablet extended release 24 hr 25 mg PO DAILY losartan 50 mg tablet 50 mg PO DAILY Qty: 90 1RF omeprazole 20 mg capsule,delayed release(DR/EC) 20 mg PO DAILY Qty: 90 0RF Referrals: [facility] [Primary Care Provider] - Print Language: Angolan
[2021-11-15 21:06] VITALS: BP 143/60; PULSE 90; RESP 15; TEMP 37.1; O2SAT 98
[2021-11-15 22:07] LABS: Appearance Urine Clear; Color Urine Yellow; Glucose Urine UA Negative (Negative); Leukocyte Esterase Urine Negative (Negative); Nitrite Urine Negative (Negative); PH 5.5 (5.0-8.0); Urine Blood Negative (Negative); Urine Ketones Negative (Negative); Urine Protein Negative (Neg-Trace)
[2021-11-15 22:28] LABS: Troponin-I High Sensitivity 119.3 ng/L (<3.5-17.0)
[2021-11-15 23:01] LABS: B Type Natriuretic Peptide 47 pg/mL (<100)
[2021-11-15 23:29] VITALS: BP 160/53; PULSE 87
[2021-11-15 23:31] VITALS: BP 147/63; PULSE 90
[2021-11-15 23:33] VITALS: BP 148/70; PULSE 101
[2021-11-16 00:43] VITALS: BP 168/62; PULSE 91; RESP 17; O2SAT 98
[2021-11-16] MEDS: 0.9 % Sodium Chloride 500 ML 999 ML IV (00:56)
[2021-11-16 04:16] VITALS: BP 177/67; PULSE 88; RESP 18; O2SAT 97
--- NOTE | 2021-11-16 06:40 | ECG_ITS ---
Test Reason : REPEAT Blood Pressure : / mmHG Vent. Rate : 082 BPM Atrial Rate : 082 BPM P-R Int : 162 ms QRS Dur : 138 ms QT Int : 412 ms P-R-T Axes : 047 -02 117 degrees QTc Int : 481 ms Normal sinus rhythm Left bundle branch block Abnormal ECG When compared with ECG of 15-NOV-2021 19:49, No significant change was found Referred By: Laila Christian Electronically Signed By:KEREN DENISE
[2021-11-16 06:42] LABS: Troponin-I High Sensitivity 178.9 ng/L (<3.5-17.0)
== END 2021-11-16 07:27 | disposition home or self-care (01) ==
PROVIDERS: Emergency Medicine; Emergency Provider Student in an Organized Health Care Education/Training Program
DX: R42 Dizziness and giddiness (principal); I95.1 Orthostatic hypotension; R26.89 Other abnormalities of gait and mobility; R77.8 Other specified abnormalities of plasma proteins; E86.9 Volume depletion, unspecified; Z20.822 Contact with and (suspected) exposure to COVID-19; E11.22 Type 2 diabetes mellitus with diabetic chronic kidney disease; I12.9 Hypertensive chronic kidney disease with stage 1 through stage 4 chronic kidney disease, or unspecified chronic kidney disease; N18.30 Chronic kidney disease, stage 3 unspecified; E78.2 Mixed hyperlipidemia; Z79.4 Long term (current) use of insulin; Z79.899 Other long term (current) drug therapy
CPT/HCPCS: 36415; 70450; 71045; 80048; 81003; 83880; 84484; 85025; 87635; 93005; 99284

== ENCOUNTER → 2021-12-29 10:25 | Outpatient (BNVA) | payer OTHER, SELFPAY | PROVIDERS: PCP Internal Medicine; Visit Provider Internal Medicine Cardiovascular Disease | DX: I44.7 Left bundle-branch block, unspecified (principal); I11.9 Hypertensive heart disease without heart failure | CPT/HCPCS: 93005; 99212 ==

== ENCOUNTER 2022-02-27 10:47 | Outpatient (REF) | payer OTHER, SELFPAY ==
[2022-02-27 11:43] LABS: Appearance Urine Clear; Color Urine Yellow; Glucose Urine UA Negative (Negative); Leukocyte Esterase Urine Moderate (2+) (Negative); Nitrite Urine Negative (Negative); PH 6.5 (5.0-9.0); UMIC TRIGGER UA YES; Urine Blood Negative (Negative); Urine Ketones Negative (Negative); Urine Protein Trace mg/dL (Neg-Trace)
[2022-02-27 11:52] LABS: Bacteria Urine 4+ (None Seen); Hyaline Casts Urine 0-2 /LPF (0-2); RBC Urine 0-2 /HPF (0-2); WBC Urine 21-50 /HPF (0-5)
== END 2022-02-27 10:48 | disposition home or self-care (01) ==
LOC: HO.LAB 10:47
PROVIDERS: PCP Internal Medicine; Visit Provider Internal Medicine
DX: D64.9 Anemia, unspecified (principal)
CPT/HCPCS: 81001

== ENCOUNTER → 2022-04-19 12:30 | Outpatient (BNVA) | payer OTHER, SELFPAY | PROVIDERS: PCP Internal Medicine; Visit Provider Surgery | DX: K64.8 Other hemorrhoids (principal) | CPT/HCPCS: 46221; 46600; 99202 ==

== ENCOUNTER 2022-11-30 11:03 | Outpatient (AMB) | payer OTHER, SELFPAY ==
--- NOTE | 2022-11-30 11:11 | MHC.PC.OV ---
Vital Signs 11/30/22 11:18 Height 5 ft 4 in Weight 163 lb 8 oz BMI 28.1 BP 118/68 Blood Pressure Location Lt brachial Position Sitting Pulse 80 Pulse Source Pulse Oximeter Pulse Oximetry (%) 98 Oxygen Delivery Method Room Air Intake Visit Reasons: 3mth f/u Intake Note: Pt is here for 3 months F/U. Pt is requesting waits belt, overnight pad #7 to sent to [facility]. Stamping Die Try Out Worker Required: No Accompanied by: Granddaughter/CHARGER TESTER-Iriana Allergies Iodinated Contrast Media [IV CONTRAST] Allergy (Unknown, Verified 11/30/22 11:46) UNKNOWN Medication List - Last Reconciled 11/30/22 by GUILLERMINA Gerber acetaminophen 500 mg PO Q8H amlodipine 5 mg PO DAILY blood pressure monitor (Blood Pressure Kit) As directed blood sugar diagnostic (FreeStyle Lite Strips) 1 strip miscellaneous BID blood-glucose meter (FreeStyle [place] Lite kit) As directed commode (bedside commode) As directed diaper,brief,adult,disposable As directed dulaglutide (Trulicity) 0.75 mg (0.5 mL) subcut QWEEK epinephrine (EpiPen 2-Mariano) 0.3 mg (0.3 mL) IM Q10M PRN gabapentin 400 mg PO BID insulin glargine U-300 conc (Toujeo SoloStar U-300 Insulin) 20 units (0.0667 mL) subcut DAILY losartan 50 mg PO DAILY meclizine (Motion Sickness Relief (meclizine)) 25 mg PO DAILY PRN mirabegron ER (Myrbetriq) 50 mg PO DAILY omeprazole 20 mg PO DAILY pen needle, diabetic (BD Alisa 2nd Gen Pen Needle) 1 ea miscellaneous DAILY sitagliptin phosphate (Januvia) 100 mg PO DAILY tramadol 50 mg PO BID PRN 30 days Tobacco use date assessed: 05/17/22 Fall risk assessment: No Falls in past year Last assessed Fall Risk: 11/30/22 Dental Screening Dental Screen Date: 11/30/22 Did you have a dental visit in the last 12 months?: No Did you have a dental problem in the last 6 months where you did not have access to dental care?: No Was dental information given to patient?: Patient has dentist HPI HPI Comments History of Present Illness Details 87-year-old female past medical history significant for diabetes mellitus, GERD, anemia, hyperlipidemia, CKD stage 3,hypertensive heart disease. Patient last seen in July presents today for follow-up visit. Patient presents today with her CHARGER TESTER who is also her granduaghter, who aids in interpretation. Patient reports she does feel dizzy at times denies any syncope. Patient is on meclizine as needed for dizziness. Denies chest pain, palpitations, shortness of breath or syncope. Fasting labs ordered. Patient has upcoming echocardiogram scheduled on the and follow-up with Dr. Gunn. Patient's CHARGER TESTER is requesting an keep tell as patient is unsteady on her feet that time she is holding her pants to keep her study. Also requesting prescription for overnight pads number 7. [facility] Medical History Bladder prolapse Chronic kidney disease, stage III (moderate) Diabetes mellitus GERD (gastroesophageal reflux disease) Hypertensive heart disease Left bundle branch block Mixed hyperlipidemia Obesity (BMI 30-39.9) Prolapsed internal hemorrhoids Surgical History History of ankle surgery History of bilateral cataract extraction History of bladder repair surgery History of cholecystectomy History of colonoscopy History of ERCP History of excision of mass Family History Father No problems noted. Mother No problems noted. Family/Other Lung cancer Esophagus cancer Other Mental health disorder Substance use disorder Social History Housing: House Alcohol intake: never Patient Tobacco Use Status: Former Tobacco user e-Cigarette/Vaping Use: Never Used Second Hand Smoke Exposure: Yes service: No Current occupational status: disabled Cognitive needs: Yes (cane/walker) Hearing needs: No Vision needs: Yes (glasses) Questionnaire Thrive Questionnaire Date Thrive assessed: 05/17/22 MENDEL-7 AMB Questionnaire MENDEL-7 Date MENDEL - 7 assessed: 05/17/22 Source: Developed by Drs. Vu Harris, Huma Roque, Ronak Nichols and colleagues, with an educational yury from [employer] Review of Systems Const Denies chills, Denies fatigue, Denies fever(s) and Denies poor appetite Eyes Denies no additional complaints ENT Reports Normal hearing present Card Denies chest pain, Denies syncope, Denies rapid heart rate and Denies dyspnea Resp Denies cough and Denies dyspnea GI Denies change in stool character, Denies constipation, Denies diarrhea, Denies nausea and Denies vomiting Denies urinary frequency, Denies dysuria and Denies urinary urgency Neuro Reports Normal hearing present, Denies confusion and Denies syncope Psych Denies confusion Endo Denies fatigue Physical exam (Primary Care) Vital Signs: Last Vital Signs Pulse 80 11/30/22 11:18 BP 118/68 11/30/22 11:18 Pulse Ox 98 11/30/22 11:18 Oxygen Delivery Method Room Air 11/30/22 11:18 BMI result Body Mass Index 28.1 Tobacco/Smoking Status: Tobacco use Status Tobacco use date assessed 05/17/22 11/30/22 11:11 Patient Tobacco Use Status Former Tobacco user 11/30/22 11:11 e-Cigarette/Vaping Use Never Used 11/30/22 11:11 Thrive Assessment: Date of Thrive Assessment Date Thrive assessed 05/17/22 11/30/22 11:11 Const General: No confusion Orientation/consciousness: No confusion HENMT Head: Yes normocephalic and Yes atraumatic Eyes Conjunctivae: conjunctivae normal Chest Chest palpation & inspection: normal inspection of the chest Resp Effort & Inspection: normal respiratory effort Auscultation: clear to auscultation bilaterally, no crackles, no rhonchi and no wheezes Cardio Rate: regular rate Rhythm: regular rhythm Heart sounds: S1 normal heart sound present and S2 normal heart sound present GI Inspection: Yes normal to inspection Neuro General: No confusion Cranial nerves: Yes Normal hearing present Extrem General: No edema Assessment and Plan Assessment & Plan (1) Diabetes mellitus: Comment: IDDM Code(s): E11.9 - Type 2 diabetes mellitus without complications Qualifiers: Diabetes mellitus complication status: with other specified complication Diabetes mellitus residential insulin use: with terminal make up operator use Diabetes mellitus type: type 2 Qualified Code(s): E11.69 - Type 2 diabetes mellitus with other specified complication; Z79.4 - prison (current) use of insulin Plan: Continue on Trulicity, Toujeo and januvia. HGB A1C ordered. Patient educated to decrease the amount of carbohydrate intake such as pasta, bread, rice and potatoes are all sugar in addition to the sweet stuff. Remember that fruits are good but they also have sugar. (2) Chronic kidney disease, stage III (moderate): Code(s): N18.30 - Chronic kidney disease, stage 3 unspecified Plan: Patient reports that currently following with special forces officer. CMP ordered to follow-up on kidney function. (3) Mixed hyperlipidemia: Code(s): E78.2 - Mixed hyperlipidemia Plan: Fasting lipid panel ordered. (4) Anemia: Code(s): D64.9 - Anemia, unspecified Plan: CBC with diff ordered to follow-up on patient's anemia. Plan Follow-up in 3 months Orders: Orders Comprehensive Raymond. Panel Fast Today D64.9 - Anemia, unspecified Hemoglobin A1c Today E11.9 - Type 2 diabetes mellitus without complications Lipid Panel Today I11.9 - Hypertensive heart disease without heart failure TSH reflex Free T4 Today Z13.29 - Encounter for screening for other suspected endocrine disorder Complete Blood Count Auto Diff Today D64.9 - Anemia, unspecified Coding Level of Care Code Est Pt Level 4 (93639) Diagnoses Diabetes mellitus E11.69; Z79.4 Diabetes mellitus complication status: with other specified complication Diabetes mellitus terminal make up operator insulin use: with residential use Diabetes mellitus type: type 2 Chronic kidney disease, stage III (moderate) N18.30 Mixed hyperlipidemia E78.2 Anemia D64.9
[2022-11-30 11:18] VITALS: BP 118/68; PULSE 80; O2SAT 98; BMI 28.1
== END 2022-11-30 11:57 | disposition home or self-care (01) ==
PROVIDERS: PCP Internal Medicine; Visit Provider Nurse Practitioner Family
DX: E11.69 Type 2 diabetes mellitus with other specified complication (principal); Z79.4 Long term (current) use of insulin; N18.30 Chronic kidney disease, stage 3 unspecified; E78.2 Mixed hyperlipidemia; D64.9 Anemia, unspecified
CPT/HCPCS: 99214

== ENCOUNTER 2022-12-06 10:14 | Outpatient (REF) | payer OTHER, SELFPAY ==
[2022-12-06 10:28] LABS: MANUAL DIFF FLAG NO
[2022-12-06 11:05] LABS: Basophils Percent Auto 0.2 % (0-2); Eosinophils Absolute Auto 0.1 X10*3/uL (0.0-0.4); Eosinophils Percent Auto 2.4 % (0-4); Hematocrit 28.8 % (37.0-47.0); Hemoglobin 9.6 g/dl (12.0-16.0); Imm Gran Abs Auto 0.01 X10*3/uL (0.00-0.03); Imm Gran Pct Auto 0.2 % (0.0-0.4); Lymphocytes Absolute Auto 1.6 X10*3/uL (1.2-4.9); Lymphocytes Percent Auto 29.3 % (20-40); Mean Corpuscular HGB Conc 33.3 g/dl (31.0-35.0); Mean Corpuscular Hemoglobin 29.6 pg (27.0-33.0); Mean Corpuscular Volume 88.9 fL (80.0-98.0); Monocytes Absolute Auto 0.4 X10*3/uL (0.1-1.2); Monocytes Percent Auto 7.9 % (2-11); Neutrophils Absolute Auto 3.3 x10*3/uL (2.0-8.3); Platelet Count 237 X10*3/uL (160-400); Red Blood Count 3.24 X10*6/uL (4.20-5.50); Red Cell Distribution Width 13.5 % (11.0-16.0); White Blood Count 5.4 X10*3/uL (4.8-10.8)
[2022-12-06 11:10] LABS: Estimated Average Glucose 123 mg/dL; Hemoglobin A1c % 5.9 % (<6.0)
[2022-12-06 12:17] LABS: Alanine Aminotransferase 9 U/L (0-31); Albumin Level 3.9 g/dL (3.5-5.0); Alkaline Phosphatase 86 U/L (39-117); Anion Gap 10 (12-20); Aspartate Amino Transferase 17 U/L (5-31); Bilirubin Total 0.4 mg/dL (0.0-1.0); Blood Urea Nitrogen 9 mg/dL (9-16); Calcium 8.7 mg/dL (8.4-10.2); Carbon Dioxide 25 mmol/L (22-29); Chloride 110 mmol/L (96-108); Cholesterol 147 mg/dL (<200); Estimated Glomerular Filt Rate > 60; Glucose Fasting 111 mg/dL (60-99); HDL Cholesterol 34 mg/dL (>40); LDL Cholesterol Calculated 75 mg/dL (<100); Potassium 4.2 mmol/L (3.3-5.1); Sodium 141 mmol/L (135-145); Total Protein 6.7 g/dL (6.5-8.0); Triglycerides 193 mg/dL (<150)
== END 2022-12-06 10:15 | disposition home or self-care (01) ==
LOC: HO.LAB 10:14
PROVIDERS: PCP Internal Medicine; Visit Provider Nurse Practitioner Family
DX: Z13.29 Encounter for screening for other suspected endocrine disorder (principal); E11.9 Type 2 diabetes mellitus without complications; I11.9 Hypertensive heart disease without heart failure; D64.9 Anemia, unspecified
CPT/HCPCS: 36415; 80053; 80061; 83036; 84443; 85025

== ENCOUNTER 2023-02-26 10:18 | Outpatient (REF) | payer OTHER, SELFPAY ==
[2023-02-26 10:40] LABS: MANUAL DIFF FLAG NO
[2023-02-26 11:31] LABS: Basophils Percent Auto 0.4 % (0-2); Eosinophils Absolute Auto 0.1 X10*3/uL (0.0-0.4); Eosinophils Percent Auto 2.5 % (0-4); Hematocrit 30.9 % (37.0-47.0); Hemoglobin 10.1 g/dl (12.0-16.0); Imm Gran Abs Auto 0.02 X10*3/uL (0.00-0.03); Imm Gran Pct Auto 0.4 % (0.0-0.4); Lymphocytes Absolute Auto 1.8 X10*3/uL (1.2-4.9); Lymphocytes Percent Auto 35.1 % (20-40); Mean Corpuscular HGB Conc 32.7 g/dl (31.0-35.0); Mean Corpuscular Volume 91.7 fL (80.0-98.0); Mean Platelet Volume 10.3 fL (9.4-12.3); Monocytes Absolute Auto 0.4 X10*3/uL (0.1-1.2); Monocytes Percent Auto 7.8 % (2-11); Neutrophils Absolute Auto 2.8 x10*3/uL (2.0-8.3); Neutrophils Percent Auto 53.8 % (45-73); Platelet Count 241 X10*3/uL (160-400); Red Blood Count 3.37 X10*6/uL (4.20-5.50); Red Cell Distribution Width 12.9 % (11.0-16.0); White Blood Count 5.1 X10*3/uL (4.8-10.8)
[2023-02-26 12:30] LABS: Cholesterol 165 mg/dL (<200); Ferritin 26 ng/mL (10-250); HDL Cholesterol 32 mg/dL (>40); Iron 56 mcg/dL (30-160); LDL Cholesterol Calculated 90 mg/dL (<100); Percent Iron Saturation 20 % (15-50); Total Iron Binding Capacity 287 mcg/dL (228-428); Triglycerides 215 mg/dL (<150); Unsaturated Iron Binding 231 ug/dL
== END 2023-02-26 10:19 | disposition home or self-care (01) ==
LOC: HO.LAB 10:18
PROVIDERS: PCP Internal Medicine; Visit Provider Nurse Practitioner Family
DX: E78.1 Pure hyperglyceridemia (principal); D64.9 Anemia, unspecified
CPT/HCPCS: 36415; 80061; 82728; 83540; 85025

== ENCOUNTER 2023-03-01 10:04 | Outpatient (AMB) | payer OTHER, SELFPAY ==
[2023-03-01 10:12] VITALS: BP 150/70; PULSE 75; O2SAT 95; BMI 28.0
--- NOTE | 2023-03-01 10:12 | A.OFFPC_ITS ---
Vital Signs 03/01/23 10:12 Height 5 ft 4 in Weight 163 lb 6 oz BMI 28.0 BP 150/70 H Blood Pressure Location Rt brachial Position Sitting Pulse 75 Pulse Source Pulse Oximeter Pulse Oximetry (%) 95 Oxygen Delivery Method Room Air Intake Visit Reasons: 3mth f/u Corn Husk Baler Required: No Corn Husk Baler Name: Melonie Berger Histology Specialist: Present Accompanied by: grand daughter Allergies Iodinated Contrast Media [IV CONTRAST] Allergy (Unknown, Verified 03/01/23 10:36) UNKNOWN Medication List - Last Reconciled 03/01/23 by GUILLERMINA Gerber acetaminophen 500 mg PO Q8H amlodipine 5 mg PO DAILY blood pressure monitor (Blood Pressure Kit) As directed blood sugar diagnostic (SureGeneTouch Ultra Test strips) test 3 times per day blood-glucose meter (SureGeneTouch Ultra2 Meter) test 3 times daily commode (bedside commode) As directed diaper,brief,adult,disposable As directed dulaglutide (Trulicity) 0.75 mg (0.5 mL) subcut QWEEK epinephrine (EpiPen 2-Mariano) 0.3 mg (0.3 mL) IM Q10M PRN gabapentin 400 mg PO BID insulin glargine U-300 conc (Toujeo SoloStar U-300 Insulin) 20 units (0.0667 mL) subcut DAILY lancets (LionWorksuch UltraSoft 2 Lancet) test 3 times per day losartan 50 mg PO DAILY meclizine (Motion Sickness Relief (meclizine)) 25 mg PO DAILY PRN mirabegron ER (Myrbetriq) 50 mg PO DAILY miscellaneous medical supply 1 ea miscellaneous ONCE omeprazole 20 mg PO DAILY pen needle, diabetic (BD Alisa 2nd Gen Pen Needle) 1 ea miscellaneous DAILY sitagliptin phosphate (Januvia) 100 mg PO DAILY tramadol 50 mg PO BID PRN 30 days Tobacco use date assessed: 05/17/22 Fall risk assessment: No Falls in past year Last assessed Fall Risk: 03/01/23 Dental Screening Dental Screen Date: 03/01/23 Did you have a dental visit in the last 12 months?: No Did you have a dental problem in the last 6 months where you did not have access to dental care?: No Was dental information given to patient?: No (Dentures ) HPI HPI Comments History of Present Illness Details 87-year-old female past medical history significant for diabetes mellitus, GERD, anemia, hyperlipidemia, CKD stage 3,hypertensive heart disease. Patient last seen in July presents today for follow-up visit. Patient presents today with her MEDICAL CASH POSTER who is also her granduaghter, who aids in interpretation. Patient's blood pressure elevated office today, patient's granddaughter reports they were in a cates to get her to this appointment and she has not yet taking her blood pressure medication. She will take medication when she gets home. Last hemoglobin A1c 5.9%. Labs reviewed with patient in office. H&H improved slightly to 10.1 and 30.9, iron studies within normal limits. Patient has been have not ongoing melena following with Gastroenterology patient has upcoming colonoscopy appointment scheduled on March 09. Patient reports gritty feeling and right eye mild erythema noted on exam patient also does have small noted. I to lateral aspect of upper eyelid. Patient advised to apply warm compresses daily for stye. Patient responded with that her eye is really itchy and bothering her, will cover her for possible developing pinkeye. Drops sent to patient's pharmacy. [facility] Medical History (Updated 03/01/23 @ 10:57 by GUILLERMINA Gerber) IBS (irritable bowel syndrome) Prolapsed internal hemorrhoids Chronic kidney disease, stage III (moderate) Obesity (BMI 30-39.9) Mixed hyperlipidemia Hypertensive heart disease Left bundle branch block Bladder prolapse Diabetes mellitus GERD (gastroesophageal reflux disease) Surgical History History of bladder repair surgery History of ERCP History of bilateral cataract extraction History of cholecystectomy History of excision of mass History of colonoscopy History of ankle surgery Family History Father No problems noted. Mother No problems noted. Family/Other Lung cancer Esophagus cancer Other Mental health disorder Substance use disorder Social History Housing: House Alcohol intake: never Patient Tobacco Use Status: Former Tobacco user e-Cigarette/Vaping Use: Never Used Second Hand Smoke Exposure: Yes service: No Current occupational status: disabled Cognitive needs: Yes (cane/walker) Hearing needs: No Vision needs: Yes (glasses) Questionnaire Thrive Questionnaire Date Thrive assessed: 05/17/22 MENDEL-7 AMB Questionnaire MENDEL-7 Date MENDEL - 7 assessed: 05/17/22 Source: Developed by Drs. Vu Harris, Huma Roque, Ronak Nichols and colleagues, with an educational yury from [employer]. Review of Systems Const Denies chills, Denies fatigue, Denies fever(s) and Denies poor appetite Eyes Denies no additional complaints ENT Details: right eye itching and gritty feeling. Reports Normal hearing present Card Denies chest pain, Denies syncope, Denies rapid heart rate and Denies dyspnea Resp Denies cough and Denies dyspnea GI Denies change in stool character, Denies constipation, Denies diarrhea, Denies nausea and Denies vomiting Denies urinary frequency, Denies dysuria and Denies urinary urgency Neuro Reports Normal hearing present, Denies confusion and Denies syncope Psych Denies confusion Endo Denies fatigue Physical exam (Primary Care) Vital Signs: Last Vital Signs Pulse 75 03/01/23 10:12 BP 150/70 H 03/01/23 10:12 Pulse Ox 95 03/01/23 10:12 Oxygen Delivery Method Room Air 03/01/23 10:12 BMI result Body Mass Index 28.0 Tobacco/Smoking Status: Tobacco use Status Tobacco use date assessed 05/17/22 03/01/23 10:14 Patient Tobacco Use Status Former Tobacco user 03/01/23 10:14 e-Cigarette/Vaping Use Never Used 03/01/23 10:14 Thrive Assessment: Date of Thrive Assessment Date Thrive assessed 05/17/22 03/01/23 10:14 Const General: No confusion Orientation/consciousness: No confusion HENMT Head: Yes normocephalic and Yes atraumatic Eyes Conjunctivae: conjunctival abnormal right conjunctival icterus and other (sty noted to lateral aspect. ) Chest Chest palpation & inspection: normal inspection of the chest Resp Effort & Inspection: normal respiratory effort Auscultation: clear to auscultation bilaterally, no crackles, no rhonchi and no wheezes Cardio Rate: regular rate Rhythm: regular rhythm Heart sounds: S1 normal heart sound present and S2 normal heart sound present Peripheral pulses: dorsalis pedis present GI Inspection: Yes normal to inspection General: Yes no CVA tenderness Back/Spine/Pelvis Back: no CVA tenderness Neuro General: No confusion Cranial nerves: Yes Normal hearing present Extrem General: No edema Assessment and Plan Assessment & Plan (1) Hordeolum externum of right upper eyelid: Code(s): H00.011 - Hordeolum externum right upper eyelid Plan: Patient advised to apply warm compresses to right eye. Patient states right eye is very itchy and mild erythema noted, denies any drainage will send polymyxin B drops to patient's pharmacy to cover for likely developing conjunctivitis. 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 Patient educated to decrease the amount of carbohydrate intake such as pasta, bread, rice and potatoes are all sugar in addition to the sweet stuff. Remember that fruits are good but they also have sugar. (3) Mixed hyperlipidemia: Code(s): E78.2 - Mixed hyperlipidemia Plan: Avoid fried foods, chicken skin, eggs, butter,margarine, pastries and?? red meat. LDL: 90 LDL goal less than 100. (4) Irritable bowel syndrome with diarrhea: Code(s): K58.0 - Irritable bowel syndrome with diarrhea Plan: Continue to follow with gastroenterology. Patient has upcoming colonoscopy scheduled for March 09 for melena. (5) Anemia: Code(s): D64.9 - Anemia, unspecified Plan: H&H improve, iron studies normal. Plan Follow-up in 3 months with PCP Medications: New polymyxin B sulf-trimethoprim 10,000 unit- 1 mg/mL while awake; do not exceed 6 doses in 24 hours 1 drp ophthalmic (eye) Q3H 7 days 10 mL 0RF Refilled meclizine (Motion Sickness Relief (meclizine)) 25 mg PO DAILY PRN 14 tabs 3RF motion sickness Coding Level of Care Code Est Pt Level 4 (53206) Diagnoses Hordeolum externum of right upper eyelid H00.011 Type 2 diabetes mellitus with other specified complication, with long-term current use of insulin E11.69; Z79.4 Diabetes mellitus type: type 2 Diabetes mellitus buttermaker continuous churn insulin use: with buttermaker continuous churn use Diabetes mellitus complication status: with other specified complication Mixed hyperlipidemia E78.2 Irritable bowel syndrome with diarrhea K58.0 Anemia D64.9
== END 2023-03-01 10:49 | disposition home or self-care (01) ==
PROVIDERS: PCP Internal Medicine; Visit Provider Nurse Practitioner Family
DX: H00.011 Hordeolum externum right upper eyelid (principal); E11.69 Type 2 diabetes mellitus with other specified complication; Z79.4 Long term (current) use of insulin; E78.2 Mixed hyperlipidemia; K58.0 Irritable bowel syndrome with diarrhea; D64.9 Anemia, unspecified
CPT/HCPCS: 99214

== ENCOUNTER 2023-03-19 08:19 | Day surgery (SDC) | payer OTHER, SELFPAY ==
[2023-01-22 13:55] VITALS: BMI 28.0
--- NOTE | 2023-01-22 14:04 | P.CONAN_ITS ---
HPI - Anesthesia Eval Consult details Narrative: 87yo F for Upper Endoscopy and Colonoscopy ?? Last dose of trulicity Seen by [facility] [place] 2021 after ED for dizziness r/t dehydration/vertigo. Not felt to be cardiac by Dr Gunn. Pending yearly f/u visit 01/2023 Awaiting call back to ensure no current concerning symptoms. Anesthesia Pre-Procedure Meds Is the patient on any of the following meds?: Dulaglutide (Trulicity) [facility] Active Problems Active Problems: All Active Problems (Updated 01/22/23 @ 13:40 by Umu Bunn RN) Hypertriglyceridemia (Acute) Cough (Acute) Upper respiratory tract infection (Acute) Anemia (Acute) Preoperative examination (Acute) Preoperative cardiovascular examination (Acute) Pre-operative clearance (Acute) Irritable bowel syndrome with diarrhea (Acute) Prolapsed internal hemorrhoids (Acute) Chronic kidney disease, stage III (moderate) (Acute) Obesity (BMI 30-39.9) (Acute) Mixed hyperlipidemia (Acute) GERD (gastroesophageal reflux disease) (Acute) Left bundle branch block (Acute) Hypertensive heart disease (Acute) Bladder prolapse (Acute) Diabetes mellitus (Acute) Past Medical History Medical History (Updated 01/22/23 @ 13:40 by Umu Bunn RN) IBS (irritable bowel syndrome) Prolapsed internal hemorrhoids Chronic kidney disease, stage III (moderate) Obesity (BMI 30-39.9) Mixed hyperlipidemia Hypertensive heart disease Left bundle branch block Bladder prolapse Diabetes mellitus GERD (gastroesophageal reflux disease) Family History Family History Father No problems noted. Mother No problems noted. Family/Other Lung cancer Esophagus cancer Other Mental health disorder Substance use disorder Surgical History Surgical History History of bladder repair surgery History of ERCP History of bilateral cataract extraction History of cholecystectomy History of excision of mass History of colonoscopy History of ankle surgery Social History Social History Housing: House Alcohol intake: never Patient Tobacco Use Status: Former Tobacco user e-Cigarette/Vaping Use: Never Used Second Hand Smoke Exposure: Yes service: No Current occupational status: disabled Cognitive needs: Yes (cane/walker) Hearing needs: No Vision needs: Yes (glasses) Meds Allergies Allergy/AdvReac Type Severity Reaction Status Date / Time Iodinated Contrast Media Allergy Unknown UNKNOWN Verified 11/30/22 11:46 [IV CONTRAST] Home Medications Medication Instructions Recorded Confirmed Last Taken Type mirabegron 50 mg tablet,extended 50 mg PO DAILY 02/14/22 01/22/23 Unknown History release 24 hr (Myrbetriq) Exam Exam Date and Time: January 22, 2023 1404 Height,Weight and Vital Signs: Height 5 ft 4 in Weight 73.936 kg Pertinent Lab Results Pertinent Lab Results: Laboratory Tests 12/06/22 10:28 WBC 5.4 Hgb 9.6 L Hct 28.8 L Plt Count 237 Sodium 141 Potassium 4.2 Chloride 110 H Carbon Dioxide 25 BUN 9 Creatinine 0.76 Narrative Narrative: EKG 2021 normal sinus rhythm with interventricular conduction delay with left bundle pattern Assessment and Plan Assessment Anesthesia Assessment: Chart Reviewed
--- NOTE | 2023-03-18 10:57 | HO.ANESPROP2 ---
Documented by User: Kim Hale NP 03/18/23 10:58 HPI - Anesthesia Eval Consult details Narrative: 87yo F for Upper Endoscopy and Colonoscopy Routine cardilogy visit and echo pending. Pt without any CV or pulmo symptoms. PMFSH Active Problems Active Problems: All Active Problems (Updated 03/15/23 @ 10:10 by Natty Shah RN) Hordeolum externum of right upper eyelid (Acute) Hypertriglyceridemia (Acute) Cough (Acute) Upper respiratory tract infection (Acute) Anemia (Acute) Preoperative examination (Acute) Preoperative cardiovascular examination (Acute) Pre-operative clearance (Acute) Irritable bowel syndrome with diarrhea (Acute) Prolapsed internal hemorrhoids (Acute) Chronic kidney disease, stage III (moderate) (Acute) Obesity (BMI 30-39.9) (Acute) Mixed hyperlipidemia (Acute) GERD (gastroesophageal reflux disease) (Acute) Left bundle branch block (Acute) Hypertensive heart disease (Acute) Bladder prolapse (Acute) Diabetes mellitus (Acute) Past Medical History Medical History Hyperlipidemia HTN (hypertension) IBS (irritable bowel syndrome) Prolapsed internal hemorrhoids Chronic kidney disease, stage III (moderate) Obesity (BMI 30-39.9) Mixed hyperlipidemia Hypertensive heart disease Left bundle branch block Bladder prolapse Diabetes mellitus GERD (gastroesophageal reflux disease) Family History Family History Father No problems noted. Mother No problems noted. Family/Other Lung cancer Esophagus cancer Other Mental health disorder Substance use disorder Surgical History Surgical History History of bladder repair surgery History of ERCP History of bilateral cataract extraction History of cholecystectomy History of excision of mass History of colonoscopy History of ankle surgery Social History Social History Housing: House Alcohol intake: never Patient Tobacco Use Status: Former Tobacco user e-Cigarette/Vaping Use: Never Used Second Hand Smoke Exposure: Yes Advance Directives: No Advance Directives Information Provided: Yes service: No Current occupational status: disabled Cognitive needs: Yes (cane/walker) Hearing needs: No Vision needs: Yes (glasses) Meds Allergies Allergy/AdvReac Type Severity Reaction Status Date / Time Iodinated Contrast Media Allergy Unknown UNKNOWN Verified 03/01/23 10:36 [IV CONTRAST] Home Medications Medication Instructions Recorded Confirmed Last Taken Type mirabegron 50 mg tablet,extended 50 mg PO DAILY 02/14/22 03/01/23 Unknown History release 24 hr (Myrbetriq) nlzaib-[id number]-[id number] 1 cap PO DAILY 03/15/23 03/15/23 Unknown History 24,000-76,000-120,000 unit capsule,delayed rel (Creon) lisinopril 30 mg tablet 30 mg PO DAILY 03/15/23 03/15/23 Unknown History tolterodine 2 mg capsule,extended 2 mg PO DAILY 03/15/23 03/15/23 Unknown History release 24 hr (Detrol LA) Exam Height,Weight and Vital Signs: Height 5 ft 4 in Weight 73.936 kg Pertinent Lab Results Pertinent Lab Results: Laboratory Tests 12/06/22 02/26/23 10:28 10:39 WBC 5.1 Hgb 10.1 L Hct 30.9 L Plt Count 241 Sodium 141 Potassium 4.2 Chloride 110 H Carbon Dioxide 25 BUN 9 Creatinine 0.76 Assessment and Plan Assessment Anesthesia Assessment: Chart Reviewed Documented by User: Luciana Encarnacion MD 03/19/23 09:19 [facility] Active Problems Active Problems: All Active Problems (Updated 03/19/23 @ 09:10 by Luciana Encarnacion MD) Hordeolum externum of right upper eyelid (Acute) Hypertriglyceridemia (Acute) Anemia (Acute) Preoperative examination (Acute) Preoperative cardiovascular examination (Acute) Pre-operative clearance (Acute) Irritable bowel syndrome with diarrhea (Acute) Prolapsed internal hemorrhoids (Acute) Chronic kidney disease, stage III (moderate) (Acute) Obesity (BMI 30-39.9) (Acute) Mixed hyperlipidemia (Acute) GERD (gastroesophageal reflux disease) (Acute) Left bundle branch block (Acute) Hypertensive heart disease (Acute) Bladder prolapse (Acute) Diabetes mellitus (Acute) Denies chest pain, heart attack history Past Medical History Medical History Hyperlipidemia HTN (hypertension) IBS (irritable bowel syndrome) Prolapsed internal hemorrhoids Chronic kidney disease, stage III (moderate) Obesity (BMI 30-39.9) Mixed hyperlipidemia Hypertensive heart disease Left bundle branch block Bladder prolapse Diabetes mellitus GERD (gastroesophageal reflux disease) Family History Family History Father No problems noted. Mother No problems noted. Family/Other Lung cancer Esophagus cancer Other Mental health disorder Substance use disorder Family history of problems with anesthesia: No Surgical History Surgical History History of bladder repair surgery History of ERCP History of bilateral cataract extraction History of cholecystectomy History of excision of mass History of colonoscopy History of ankle surgery History of Problems with Anesthesia: No Social History Social History Housing: House Alcohol intake: never Patient Tobacco Use Status: Former Tobacco user e-Cigarette/Vaping Use: Never Used Second Hand Smoke Exposure: Yes Advance Directives: No Advance Directives Information Provided: Yes service: No Current occupational status: disabled Cognitive needs: Yes (cane/walker) Hearing needs: No Vision needs: Yes (glasses) Meds Allergies Allergy/AdvReac Type Severity Reaction Status Date / Time Iodinated Contrast Media Allergy Unknown UNKNOWN Verified 03/01/23 10:36 [IV CONTRAST] Home Medications Medication Instructions Recorded Confirmed Last Taken Type mirabegron 50 mg tablet,extended 50 mg PO DAILY 02/14/22 03/01/23 Unknown History release 24 hr (Myrbetriq) lrxcbn-[id number]-ftjdnrl 1 cap PO DAILY 03/15/23 03/15/23 Unknown History 24,000-76,000-120,000 unit capsule,delayed rel (Creon) lisinopril 30 mg tablet 30 mg PO DAILY 03/15/23 03/15/23 Unknown History tolterodine 2 mg capsule,extended 2 mg PO DAILY 03/15/23 03/15/23 Unknown History release 24 hr (Detrol LA) Exam Height,Weight and Vital Signs: Height 5 ft 4 in Weight 73.936 kg Vital Signs Temp Pulse Resp BP Pulse Ox O2 Del Method 03/19/23 08:53 98.1 F 87 16 162/55 H 99 Room Air Pertinent Lab Results Pertinent Lab Results: Laboratory Tests 12/06/22 02/26/23 10:28 10:39 WBC 5.1 Hgb 10.1 L Hct 30.9 L Plt Count 241 Sodium 141 Potassium 4.2 Chloride 110 H Carbon Dioxide 25 BUN 9 Creatinine 0.76 Lab Results 03/19/23 Range/Units 08:58 POC Glucose 109 (60-115) mg/dL Airway Mallampati Class: II TM Dist: >3cm Neck ROM: Limited (Arthritis ) Denture: Upper and Lower Heart: RRR+ systolic murmur Lungs: CTAB Assessment and Plan Assessment Anesthesia Assessment: Anesthesia Plan Discussed Final Anesthetic Review Family History of Problems with Anesthesia: No History of Problems with Anesthesia: No NPO: Yes ASA Class: III Final Preanesthetic Review: No Changes in Pt Med Stat, Meds/Allgs Chart Reviewed, Consent Obtained/Reviewed and Anes Risks/Benef Reviewed Patient Risk: Intermediate Procedure Risk: Low Assessment/Block/Sedation in SS: Assess/Block/Sedation-SS Anesthetic Plan Anesthetic Plan: MAC: Disposition: Standard PACU
[2023-03-19 08:50] VITALS: BMI 27.8
[2023-03-19 08:53] VITALS: BP 162/55; PULSE 87; RESP 16; TEMP 36.7; O2SAT 99
[2023-03-19] MEDS: Lactated Ringers 1,000 ML 100 ML IVCONT (09:05)
[2023-03-19 09:12] LABS: Glucose, Whole Blood 109 mg/dL (60-115)
--- NOTE | 2023-03-19 09:14 | P.HPSUR_ITS ---
Pre-Procedural Eval Section A Date of Service: 03/19/23 Section B Chief Complaint: Melena Details of Present Illness: see H&P no changes Relevant Family History (Specify if Yes): No Relevant Social History: None Present Medications: see Short Stay Collaborative assessment Medical History: No relevant PMH History of Previous Operations: No relevant previous surgery Allergies: Allergies Allergy/AdvReac Type Severity Reaction Status Date / Time Iodinated Contrast Media Allergy Unknown UNKNOWN Verified 03/01/23 10:36 [IV CONTRAST] Review of Systems Sugical H&P ROS: Negative: Constitution, Cardiovascular, Respiratory, Neurolog ical, Psychiatric, Hem-Onc, Allergic/Immunologic, Gastrointestinal, Genitourinary, Musculoskeletal, Integumentary, Endocrine and Eyes/Ears/Nose/Throat Exam Surgical H&P Exam: Normal: HEENT, Normal: Heart, Normal: Lungs, Normal: Extremities, Normal: Abdomen, Normal: Skin and Normal: Neurological Plan Diagnosis/Plan: Unchanged I have reviewed the history and physical and performed a pertinent physical examination on my patient. No changes have occurred unless specified. Time Spent With Patient Time: Total time managing care of this patient today ____ minutes.
[2023-03-19 10:29] VITALS: BP 130/52; PULSE 80; RESP 16; TEMP 36.3; O2SAT 100
[2023-03-19 10:44] VITALS: BP 132/54; PULSE 81; RESP 16; TEMP 36.1; O2SAT 100
--- NOTE | 2023-03-19 11:12 | OP_ITS ---
DATE OF SERVICE: 03/19/2023 SURGEON: Derik Bob MD INDICATIONS: Blood in the stool and black stools. PREOPERATIVE DIAGNOSIS: POSTOPERATIVE DIAGNOSIS: PROCEDURE PERFORMED: Upper endoscopy with biopsy, colonoscopy to the terminal ileum. ESTIMATED BLOOD LOSS: COMPLICATIONS: ANESTHESIA: Monitored anesthesia care. ASSISTANTS: SPECIMENS: DESCRIPTION OF PROCEDURE: History and physical performed. The risks and benefits of the procedure were explained to the patient. Informed consent was obtained. The patient was placed in the left lateral decubitus position. The Olympus video gastroscope was introduced into the esophagus, stomach, and duodenum. Examination was performed. The scope was removed. She was repositioned for colonoscopy. Digital rectal exam was performed and was found to be normal. The Olympus pediatric video colonoscope was introduced into the rectum and advanced to the cecum. The cecum was identified by transillumination, palpation, and identification of ileocecal valve. Examination was performed. The scope was removed. She tolerated both procedures well and was returned to the recovery area in stable condition. FINDINGS: Upper endoscopy: 1. Esophagus: The esophagus was normal. 2. Stomach: The stomach was normal. 3. Duodenum: The duodenum was normal. Biopsies were obtained from the 2nd portion. Colonoscopy: The terminal ileum was briefly glimpsed and appeared normal. There was no bleeding. The visualized colonic mucosa was normal. There was some liquid stool and some formed stool left, which limited the sensitivity of the examination. For detection of small polyps, this was washed and suctioned. No polyps were identified. There was mild sigmoid diverticulosis. Retroflexed examination was normal. External hemorrhoids were noted on withdrawal of colonoscope. IMPRESSION: 1. Normal upper endoscopy. 2. Normal colonoscopy. RECOMMENDATION: 1. Follow up the biopsy results. 2. Screening colonoscopy is not recommended based on the patient's age. MD JUAN Nixon/KERRIE / [id number]
== END 2023-03-19 11:56 | disposition home or self-care (01) ==
PROVIDERS: PCP Internal Medicine; Visit Provider Internal Medicine Gastroenterology
PROC: (CPT 43239; principal; 2023-03-19 09:10)
DX: K21.9 Gastro-esophageal reflux disease without esophagitis (principal); K57.30 Diverticulosis of large intestine without perforation or abscess without bleeding; K64.8 Other hemorrhoids; K92.1 Melena; E11.22 Type 2 diabetes mellitus with diabetic chronic kidney disease; I12.9 Hypertensive chronic kidney disease with stage 1 through stage 4 chronic kidney disease, or unspecified chronic kidney disease; N18.9 Chronic kidney disease, unspecified; E78.5 Hyperlipidemia, unspecified; D64.9 Anemia, unspecified; I44.7 Left bundle-branch block, unspecified; Z90.49 Acquired absence of other specified parts of digestive tract; Z79.4 Long term (current) use of insulin; Z79.899 Other long term (current) drug therapy; Z79.85 Long-term (current) use of injectable non-insulin antidiabetic drugs
CPT/HCPCS: 43239; G0121; 82947; 88305; J2704

== ENCOUNTER → 2023-04-09 10:04 | Outpatient (REF) | payer OTHER, SELFPAY ==
--- NOTE | 2023-04-09 10:06 | CA_ITS ---
Transthoracic Echocardiogram Patient (Last, First, Middle): Brit Goins, Gender: Female Date of : 1935 Age: 87 Procedure Date: 04/09/2023 Procedure Type: Transthoracic Echocardiogram Location: OP Height: 160.02 cm Weight: 75.3 kg BSA: 1.79 m2 Heart Rate: bpm BP: 150 / 68 mmHg Rotor Blade Installer: TO Referring MD: Fredo Gunn MD Warehouse Operator: Fredo Gunn MD Symptoms: I11.9 - Hypertensive heart disease without heart failure Study Quality: Fair ECG Rhythm: Sinus Conclusions: - 1. Moderately reduced LV ejection fraction 35-40% with impaired relaxation filling pattern and elevated filling pressures 2. At least mildly dilated left atrium 3. Mild aortic stenosis 4. Normal RV systolic pressure 5. No gross pericardial effusion Findings Left Ventricle Normal left ventricular cavity size. There is mildly increased left ventricular wall thickness. The left ventricular systolic function is moderately decreased. The visually estimated ejection fraction is between 35 40%. Spectral Doppler is indicative of an impaired relaxation filling pattern. Elevated filling pressures. E/E prime ratio is >15, consistent with elevated filling pressures. Right Ventricle Normal right ventricular cavity size and systolic function. Atria The left atrium is mildly dilated. There is no evidence of interatrial shunt. The right atrium is likely dilated. Aortic Valve There is moderate calcification of the aortic valve. There is moderate thickening of the aortic valve. There is mild aortic valve stenosis. There is no aortic valve regurgitation. Mitral Valve There is mild anterior and posterior mitral leaflet thickening. There is mild mitral annular calcification. There is mild mitral valve regurgitation. There is no mitral valve stenosis. Pulmonic Valve The pulmonic valve is likely normal. There is trace pulmonic valve regurgitation. Tricuspid Valve Normal tricuspid valve structure. There is mild tricuspid valve regurgitation. The right ventricular systolic pressure is normal. The right ventricular systolic pressure is 33 mmHg. Normal right atrial pressure. There is no evidence of pulmonary hypertension. Great Vessels All visible segments of the aorta are normal in size. The pulmonary artery was not well visualized. There is no dilatation of the ascending aorta measuring 3.30 cm. Moderate plaque is seen in the sino tubular ridge. Venous The inferior vena cava is normal in size and collapses greater than 50% with inspiration. Pericardium/Pleural There is no evidence of pericardial effusion. Prior Study Comparison Changes noted compared to prior study dated: 11/24/2019. LV systolic function is reduced Measurements 2D Linear Measurements IVSd: 1.59 0.6-0.9/0.6-1.0 cm LVIDd: 4.41 3.9-5.3/4.2-5.9 cm LVIDd Index: 2.46 2.4-3.2/2.2-3.1 cm/m2 LVIDs: 3.39 2.0-3.6 cm LVPWd: 0.93 0.7-1.1 cm LA Diam: 4.80 2.7-3.8/3.0-4.0 cm LAIDs Index: 2.68 1.5-2.3 cm/m2 LV Mass: 257.08 67-162/88-224 g LV Mass Index: 143.62 43-95/49-115 g/m2 LVOT Diam: 2.00 3.0+(-)1.3 cm 2D Systolic Function EF 4C: 26.90 >55% EF 2C: 42.20 >55% EF BiP: 35.60 >55% Mitral Valve MV VTI: 0.33 MV Pk Quinn: 1.56 MV Mn Quinn: 0.87 MV Pk Grad: 10.00 MV Mn Grad: 4.00 MV Pk E: 0.81 MV PK A: 1.36 MV Decel Time: 209.00 E/A: 0.60 E'Lateral: 2.94 E'Medial: 3.70 E/E' Med: 21.80 E/E' Lat: 27.40 PHT: 61.00 MVA PHT: 3.61 MVA Continuity: 1.90 Decel [place]: 3.86 Aortic Valve AoV Pk Quinn: 1.49 AoV Mn Quinn: 1.08 AoV VTI: 0.37 AoV Pk Grad: 9.00 Aov Mn Grad: 5.00 FRANCESCA Cont.VTI: 1.69 LVOT LVOT Pk Quinn: 0.79 LVOT Mn Quinn: 0.58 LVOT VTI: 0.20 LVOT Pk Grad: 3.00 LVOT Mn Grad: 1.00 LVOT Diam: 2.00 LVOT Area: 3.14 Diastolic Function MV Pk E: 0.81 MV Pk A: 1.36 E/A: 0.60 E'Medial: 3.70 E/E' Med: 21.80 E' Laterial: 2.94 E/E' Lat: 27.40 Right Ventricle TAPSE (mm): 27.20 TVS' Quinn: 13.10 Tricuspid Valve TR Pk Quinn: 2.74 TR Pk Grad: 30.00 RA Press: 3.00 RVSP: 33.00 Great Vessels Aorta Sinus of Valsalva: 3.05 2.0-3.[address] [place]: 1.97 1.7-3.4 cm Ao Asc: 3.30 2.1-3.4 cm Updated in Other Vendor System with Status of Final Fredo Gunn MD electronically signed on 04/10/2023 4:19:54 PM with status of Final
== END ==
LOC: HO.CARD 10:04
PROVIDERS: PCP Internal Medicine; Visit Provider Internal Medicine Cardiovascular Disease
DX: I11.9 Hypertensive heart disease without heart failure (principal)
CPT/HCPCS: 93306

== ENCOUNTER → 2023-04-09 10:06 | Outpatient (BNV) | payer OTHER, SELFPAY | PROVIDERS: PCP Internal Medicine; Visit Provider Internal Medicine Cardiovascular Disease | DX: I11.9 Hypertensive heart disease without heart failure (principal) | CPT/HCPCS: 93306 ==

== ENCOUNTER 2023-04-19 09:21 | Observation (INO) | payer OTHER, SELFPAY ==
[2023-04-19] VITALS (8 sets, daily range): BP systolic 132–180; BP diastolic 51–78; PULSE 85–96; RESP 13–20; TEMP 36.1–37.1; O2SAT 95–98; BMI 29.8
--- NOTE | ~2023-04-19 | CT_ITS ---
EXAMINATION: CT ABDOMEN AND PELVIS WITHOUT CONTRAST CLINICAL INFORMATION: Diarrhea. Lower abdominal pain. COMPARISON: 10/07/2019 TECHNIQUE: Multidetector volumetric imaging was performed from the superior aspect of the liver through the pubic symphysis. Sagittal and coronal reformatted images were obtained on the technologist's workstation. This CT examination was performed using dose optimization techniques as appropriate, variously including the following: *Automated exposure control *Adjustment of mA and/or kV according to patient size (this includes techniques or standardized protocols for targeted exams where dose is matched to indication/reason for exam; i.e. extremities or head) *Use of iterative reconstruction technique DLP: 545 mGy-cm FINDINGS: LUNG BASES: Heart is enlarged. LIVER, GALLBLADDER, AND BILIARY TREE: The noncontrast liver is normal in size and contour. No biliary ductal dilatation is present. The gallbladder is surgically absent. PANCREAS: No ductal dilatation. SPLEEN: Not enlarged. ADRENAL GLANDS: No adrenal mass. KIDNEYS AND URETERS: Mild hydronephrosis of the right kidney. No hydroureter. No renal or ureteral calculus. No perinephric fluid collection. BLADDER: Unremarkable. GASTROINTESTINAL TRACT: Small hiatal hernia. No small bowel obstruction. Diverticular disease of the colon. Appendix is within normal limits. ABDOMINAL WALL: No significant hernia is appreciated. LYMPH NODES: No bulky lymphadenopathy. VASCULAR: Normal caliber abdominal aorta. PELVIC VISCERA: Questionable soft tissue mass in the right adnexa measuring 5.0 x 5.2 x 4.9 cm incompletely characterized without intravenous contrast. No free fluid in the pelvis. OSSEOUS STRUCTURES: The bone marrow appears diffusely heterogeneous with several lytic lesions in the pelvic bones. There is sclerosis of the sacroiliac joints. CT/CT abdomen pelvis wo IV con IMPRESSION: Questionable soft tissue mass in the right adnexa measuring approximately 5.0 x 5.2 x 4.9 cm incompletely characterized without intravenous contrast. MRI pelvis may be considered for further characterization. Mild right hydronephrosis. This may be on the basis of mass effect. Diffuse heterogeneity of the bone marrow with several stable lytic lesions. This may represent an infiltrative or neoplastic bone disorder. The appearance is similar to 2019.
--- NOTE | ~2023-04-19 | US_ITS ---
EXAMINATION: ULTRASOUND PELVIC, COMPLETE CLINICAL INFORMATION: Right ovarian mass seen on CT April 19, 2023 COMPARISON: CT abdomen pelvis April 19, 2023. Pelvic ultrasound March 16, 2013 TECHNIQUE: Transvaginal: Used to better visualize pelvic structures Transabdominal: Not adequate embolization Spectral Doppler and color Doppler exam was utilized. LMP: Postmenopausal FINDINGS: UTERUS: Uterus is retroverted. No uterine mass. Uterus measures 5.3 x 3 x 4.2 cm. Endometrial thickness 0.3 cm trace fluid in the endometrial cavity. ADNEXA: Ovarian vascularity:Unable to demonstrate vascular flow in the ovaries on today's exam. This is likely due to technical factors. The ovaries are of similar size and appearance ultrasound exam of April 16, 2022. Right ovary: Mildly enlarged with mild heterogeneous echotexture. Right ovary measures 5.1 x 2.3 x 4.2 cm. Volume 25.8 mL. The right ovary previously measured 4.7 x 3 x 4 cm. Volume 29.5 mL on the ultrasound exam of 2012.. No change in appearance of right ovary since prior exam of 2012. Left ovary: Small coarse calcification in the ovary. Left ovary measures 2.2 x 1.5 x 1.8 cm. Volume 3.1 mL. Previously measured 3.2 x 2.1 x 2.1 cm. Volume 7.4 mL. Cul-de-sac: No Fluid US/US pelvic ovarian doppler IMPRESSION: 1. The right ovary is mildly enlarged and heterogeneous in echotexture. The right ovary is of similar size and appearance to prior ultrasound exam of 2013. 2. Small coarse calcification in left ovary. 3. No acute change of uterus. 4. No fluid in the cul-de-sac.
--- NOTE | ~2023-04-19 | XR_ITS ---
EXAMINATION: XR CHEST CLINICAL INFORMATION: Weakness. COMPARISON: 11/15/2021 TECHNIQUE: Frontal view of the chest was obtained. FINDINGS: The lungs are well expanded. Stable diffuse interstitial prominence. No focal consolidation. No pleural effusion. Cardiac silhouette is unchanged. XR/XR chest 1V IMPRESSION: No acute abnormality.
--- NOTE | ~2023-04-19 | US_ITS ---
EXAMINATION: ULTRASOUND PELVIC, COMPLETE CLINICAL INFORMATION: Right ovarian mass seen on CT April 19, 2023 COMPARISON: CT abdomen pelvis April 19, 2023. Pelvic ultrasound March 16, 2013 TECHNIQUE: Transvaginal: Used to better visualize pelvic structures Transabdominal: Not adequate embolization Spectral Doppler and color Doppler exam was utilized. LMP: Postmenopausal FINDINGS: UTERUS: Uterus is retroverted. No uterine mass. Uterus measures 5.3 x 3 x 4.2 cm. Endometrial thickness 0.3 cm trace fluid in the endometrial cavity. ADNEXA: Ovarian vascularity:Unable to demonstrate vascular flow in the ovaries on today's exam. This is likely due to technical factors. The ovaries are of similar size and appearance ultrasound exam of April 16, 2022. Right ovary: Mildly enlarged with mild heterogeneous echotexture. Right ovary measures 5.1 x 2.3 x 4.2 cm. Volume 25.8 mL. The right ovary previously measured 4.7 x 3 x 4 cm. Volume 29.5 mL on the ultrasound exam of 2012.. No change in appearance of right ovary since prior exam of 2012. Left ovary: Small coarse calcification in the ovary. Left ovary measures 2.2 x 1.5 x 1.8 cm. Volume 3.1 mL. Previously measured 3.2 x 2.1 x 2.1 cm. Volume 7.4 mL. Cul-de-sac: No Fluid US/US pelvic and transvaginal IMPRESSION: 1. The right ovary is mildly enlarged and heterogeneous in echotexture. The right ovary is of similar size and appearance to prior ultrasound exam of 2013. 2. Small coarse calcification in left ovary. 3. No acute change of uterus. 4. No fluid in the cul-de-sac.
[2023-04-19 09:46] LABS: Glucose, Whole Blood 128 mg/dL (60-115)
--- NOTE | 2023-04-19 10:13 | ECG_ITS ---
Test Reason : weakness Blood Pressure : / mmHG Vent. Rate : 094 BPM Atrial Rate : 094 BPM P-R Int : 150 ms QRS Dur : 142 ms QT Int : 400 ms P-R-T Axes : 038 -18 095 degrees QTc Int : 500 ms Normal sinus rhythm Left bundle branch block Abnormal ECG When compared with ECG of 16-NOV-2021 06:39, No significant change was found Referred By: Georgiana Hoover Electronically Signed By:JORGE LIAO
[2023-04-19 10:24] LABS: Appearance Urine Clear; Color Urine Yellow; Glucose Urine UA Negative (Negative); Leukocyte Esterase Urine Small (1+) (Negative); Nitrite Urine Positive (Negative); Specific Gravity - Urine <= 1.005 (1.005-1.025); UMIC TRIGGER UACC YES; Urine Blood Negative (Negative); Urine Ketones Negative (Negative); Urine Protein 30 (1+) mg/dL (Neg-Trace)
--- NOTE | 2023-04-19 10:27 | ED_ITS ---
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 No fevers MD Complaint: generalized weakness Onset (ago): week(s) (2) Duration: constant Location: generalized Migration: none Severity: moderate Relieving factors: none Exacerbating factors: movement and exertion Associated symptoms: loss of appetite and other (loose stools) Related Data Home Medications Medication Instructions Recorded Confirmed mirabegron 50 mg tablet,extended 50 mg PO DAILY 02/14/22 03/01/23 release 24 hr (Myrbetriq) [id number]-[id number] 1 cap PO DAILY 03/15/23 03/15/23 24,000-76,000-120,000 unit capsule,delayed rel (Creon) lisinopril 30 mg tablet 30 mg PO DAILY 03/15/23 03/15/23 tolterodine 2 mg capsule,extended 2 mg PO DAILY 03/15/23 03/15/23 release 24 hr (Detrol LA) Previous Rx's Medication Instructions Recorded epinephrine 0.3 mg/0.3 mL 0.3 mg (0.3 mL) IM Q10M PRN 03/26/20 injection, auto-injector (EpiPen anaphylaxis #1 ea 2-Mariano) blood pressure monitor (Blood #1 ea 06/06/20 Pressure Kit) pen needle, diabetic 32 gauge x 1 ea miscellaneous DAILY #100 ea 09/08/20 5/32 (BD Alisa 2nd Gen Pen Needle) commode (bedside commode) #1 ea 06/12/21 amlodipine 5 mg tablet 5 mg PO DAILY #90 tabs 11/21/22 insulin glargine U-300 conc 300 20 unit (0.0667 mL) subcut DAILY 11/21/22 unit/mL (1.5 mL) subcutaneous pen #13.5 mL (Toujeo SoloStar U-300 Insulin) diaper,brief,adult,disposable #100 ea 11/30/22 miscellaneous medical supply 1 ea miscellaneous ONCE #1 ea 11/30/22 gabapentin 400 mg capsule 400 mg PO BID #180 caps 12/12/22 losartan 50 mg tablet 50 mg PO DAILY #90 tabs 12/21/22 blood sugar diagnostic (OneTouch #100 ea 12/31/22 Ultra Test strips) blood-glucose meter (OneTouch #1 ea 12/31/22 Ultra2 Meter) lancets 30 gauge (OneTouch #100 ea 12/31/22 UltraSoft 2 Lancet) acetaminophen 500 mg tablet 500 mg PO Q8H #30 tabs 01/14/23 omeprazole 20 mg capsule,delayed 20 mg PO DAILY #90 caps 02/07/23 release meclizine 25 mg tablet (Motion 25 mg PO DAILY PRN motion sickness 03/01/23 Sickness Relief (meclizine)) #14 tabs polymyxin B sulfate 10,000 1 drp ophthalmic (eye) Q3H 7 days 03/01/23 unit-trimethoprim 1 mg/mL eye drops #10 mL tramadol 50 mg tablet 50 mg PO BID PRN pain 30 days #60 03/18/23 tabs dulaglutide 0.75 mg/0.5 mL 0.75 mg (0.5 mL) subcut QWEEK #12 04/10/23 subcutaneous pen injector mL (Trulicity) sitagliptin phosphate 100 mg 100 mg PO DAILY #90 tabs 04/10/23 tablet (Januvia) Allergies Allergy/AdvReac Type Severity Reaction Status Date / Time Iodinated Contrast Media Allergy Unknown UNKNOWN Verified 03/01/23 10:36 [IV CONTRAST] Review of Systems 2 Review of Systems: Constitutional : No Weight loss, No Fever, No Chills, pos fatigue ENT/Mouth : No sore throat, No Rhinorrhea Eyes: No Swelling, No Redness Cardiovascular : No Chest Pain, No SOB, NoEdema Respiratory : No Cough, No Sputum, No Wheezing Gastrointestinal : Positive Nausea, no Vomiting, positive Diarrhea, positive abdominal Pain, No Hematochezia, No Melena Genitourinary : No Dysuria, No Urinary Frequency, No Hematuria, No Urgency Musculoskeletal : No joint pain, No Myalgias, No Joint Swelling Skin : No Skin Lesions, No rash Neuro : pos Weakness, No Numbness, No Dizziness, No Headache Psych : No Anxiety/Panic, No Depression Heme/Lymph: No Bruising, No Lymphadenopathy Endocrine : No Polyuria, No Polydipsia All other systems reviewed and are negative. [facility] Past Medical History Attestation statement: The following information was validated with the patient. Source: old records reviewed Onset Date is defined in the Problem List Problems that require an onset date and time if occurred within 24 hrs of arrival to the ED Aortic Dissection and Rupture; Neurologic impairment; Cardiopulmonary Arrest; Endotracheal Intubation; Insertion or Replacement of Mechanical Circulatory Assist Device Medical History Hyperlipidemia HTN (hypertension) IBS (irritable bowel syndrome) Prolapsed internal hemorrhoids Chronic kidney disease, stage III (moderate) Obesity (BMI 30-39.9) Mixed hyperlipidemia Hypertensive heart disease Left bundle branch block Bladder prolapse Diabetes mellitus GERD (gastroesophageal reflux disease) Surgical History History of bladder repair surgery History of ERCP History of bilateral cataract extraction History of cholecystectomy History of excision of mass History of colonoscopy History of ankle surgery Family History Family History Father No problems noted. Mother No problems noted. Family/Other Lung cancer Esophagus cancer Other Mental health disorder Substance use disorder Social History Social History Housing: House Alcohol intake: never Patient Tobacco Use Status: Former Tobacco user Quit Date: 10 yrs ago e-Cigarette/Vaping Use: Never Used Second Hand Smoke Exposure: Yes Advance Directives: Yes Advance Directives Information Provided: No Advance Directives on File: No service: No Current occupational status: disabled Cognitive needs: Yes (cane/walker) Hearing needs: No Vision needs: Yes (glasses) Physical Exam 2 Vital Signs: Vital Signs: Last Vital Signs Temp 98.7 F 04/19/23 11:52 Pulse 85 04/19/23 14:04 Resp 13 04/19/23 14:04 BP 165/59 H 04/19/23 14:04 Pulse Ox 98 04/19/23 14:04 O2 Del Method Room Air 04/19/23 14:04 BMI result Body Mass Index 29.8 Appearance: Alert. Oriented X3. No acute distress. Eyes: Pupils equal, round and reactive to light. ENT: Pharynx normal. Neck: Normal inspection. Neck supple. CVS: Normal heart rate and rhythm. Pulses normal. Respiratory: No respiratory distress. Breath sounds normal. Abdomen: Soft and mild lower abdominal ttp no rebound Skin: Skin warm and dry. pale skin color. Normal skin turgor. Extremities: No lower extremity edema. No calf ttp Neuro: Oriented X 3. No motor deficit. No sensory deficit. Course Course Course Narrative: discussed ovarian mass and need for follow up through PCP at [facility] [employer] surg oncology she is aware Medications Administered Discontinued Medications Generic Name Dose Route Start Last Admin Trade Name Freq PRN Reason Stop Dose Admin Ceftriaxone Sodium 1 gm/ 50 mls @ 100 mls/hr 04/19/23 10:51 04/19/23 12:21 Sodium Chloride IV 04/19/23 11:20 Infused ONCE ONE Infusion Medical Decision Making Medical Decision Making [facility] Narrative: 87 yo female with PMH of anemia, elevated triglycerides, IBS, CKD, GERD, LBBB, HTN, DM here with c/o vague weakness, lower abdominal pain, fatigue, denies CP/SOB no GIB symptoms no fevers has urinary frequency at this time will need labs, EKG, CT scan for colitis, UA, viral panel Differential Diagnosis Differential Diagnoses: The differential diagnosis associated with the presentation includes anemia, dehydration, ACS, UTI, colitis Admission/Observation Consideration of admission/observation: Escalation of care including admission/observation considered admit for further monitoring and management Consult Healthcare Provider Management of the patient was discussed with: Hospitalist (will admit) Lab Data [facility] Lab Attestation statement: I reviewed the patient's lab results. 04/19/23 11:32 04/19/23 11:32 Labs: Lab Results 04/19/23 04/19/23 04/19/23 Range/Units 09:41 10:10 11:09 WBC (4.8-10.8) X10*3/uL RBC (4.20-5.50) X10*6/uL Hgb (12.0-16.0) g/dl Hct (37.0-47.0) % MCV (80.0-98.0) fL MCH (27.0-33.0) pg MCHC (31.0-35.0) g/dl RDW (11.0-16.0) % Plt Count (160-400) X10*3/uL MPV (9.4-12.3) fL Immature Gran % (Auto) (0.0-0.4) % Neut % (Auto) (45-73) % Lymph % (Auto) (20-40) % Andrews % (Auto) (2-11) % Eos % (Auto) (0-4) % Baso % (Auto) (0-2) % Lymph # (Auto) (1.2-4.9) X10*3/uL Andrews # (Auto) (0.1-1.2) X10*3/uL Eos # (Auto) (0.0-0.4) X10*3/uL Baso # (Auto) (0.0-0.2) X10*3/uL Abs Immat Gran (auto) (0.00-0.03) X10*3/uL Absolute Neuts (auto) (2.0-8.3) x10*3/uL Absolute Nucleated RBC (0.0-0.012) X10*3/uL Nucleated RBC % (auto) (0.0-0.2) /100WBC Smear Tech's Comments Sodium (135-145) mmol/L Potassium (3.3-5.1) mmol/L Chloride (96-108) mmol/L Carbon Dioxide (22-29) mmol/L Anion Gap (12-20) BUN (9-16) mg/dL Creatinine (0.5-1.4) mg/dL Estim Creat Clear Calc Estimated GFR POC Glucose 128 H (60-115) mg/dL Random Glucose (60-115) mg/dL Lactic Acid (0.5-2.0) mmol/L Calcium (8.4-10.2) mg/dL Magnesium (1.6-2.6) mg/dL Total Bilirubin (0.0-1.0) mg/dL Direct Bilirubin (0.0-0.5) mg/dL AST (5-31) U/L ALT (0-31) U/L Alkaline Phosphatase (39-117) U/L Troponin I High Sens (<3.5-17.0) ng/L C-Reactive Protein (< or = 0.50) mg/dL B-Natriuretic Peptide (<100) pg/mL Total Protein (6.5-8.0) g/dL Albumin (3.5-5.0) g/dL Lipase (8-78) U/L Procalcitonin ng/mL TSH (0.32-4.0) uIU/mL Urine Color Yellow Urine Appearance Clear Urine pH 7.0 (5.0-9.0) Ur Specific [place] <= 1.005 (1.005-1.025) Urine Protein 30 (1+) H (Neg-Trace) mg/dL Urine Glucose (UA) Negative (Negative) mg/dL Urine Ketones Negative (Negative) mg/dL Urine Blood Negative (Negative) Urine Nitrite Positive H (Negative) Ur Leukocyte Esterase Small (1+) H (Negative) Urine RBC 0-2 (0-2) /HPF Urine WBC 11-20 H (0-5) /HPF Ur Squamous Epith Cells 0-2 (0-2) /HPF Urine Bacteria 4+ (None Seen) Hyaline Casts 0-2 (0-2) /LPF COVID-19 (JOSE) Negative (Negative) COVID-19 Clin Com See Note 04/19/23 04/19/23 Range/Units 11:32 13:28 WBC 5.9 (4.8-10.8) X10*3/uL RBC 3.63 L (4.20-5.50) X10*6/uL Hgb 11.0 L (12.0-16.0) g/dl Hct 32.5 L (37.0-47.0) % MCV 89.5 (80.0-98.0) fL MCH 30.3 (27.0-33.0) pg MCHC 33.8 (31.0-35.0) g/dl RDW 12.5 (11.0-16.0) % Plt Count 200 (160-400) X10*3/uL MPV 9.7 (9.4-12.3) fL Immature Gran % (Auto) 0.3 (0.0-0.4) % Neut % (Auto) 76.9 H (45-73) % Lymph % (Auto) 18.2 L (20-40) % Andrews % (Auto) 4.2 (2-11) % Eos % (Auto) 0.2 (0-4) % Baso % (Auto) 0.2 (0-2) % Lymph # (Auto) 1.1 L (1.2-4.9) X10*3/uL Andrews # (Auto) 0.3 (0.1-1.2) X10*3/uL Eos # (Auto) 0.0 (0.0-0.4) X10*3/uL Baso # (Auto) 0.0 (0.0-0.2) X10*3/uL Abs Immat Gran (auto) 0.02 (0.00-0.03) X10*3/uL Absolute Neuts (auto) 4.6 (2.0-8.3) x10*3/uL Absolute Nucleated RBC 0.000 (0.0-0.012) X10*3/uL Nucleated RBC % (auto) 0.0 (0.0-0.2) /100WBC Smear Tech's Comments VERIFIED Sodium 142 (135-145) mmol/L Potassium 4.9 (3.3-5.1) mmol/L Chloride 107 (96-108) mmol/L Carbon Dioxide 27 (22-29) mmol/L Anion Gap 13 (12-20) BUN 19 H (9-16) mg/dL Creatinine 1.00 (0.5-1.4) mg/dL Estim Creat Clear Calc 38.7 Estimated GFR 52 POC Glucose (60-115) mg/dL Random Glucose 121 H (60-115) mg/dL Lactic Acid 0.9 (0.5-2.0) mmol/L Calcium 9.9 D (8.4-10.2) mg/dL Magnesium 1.9 (1.6-2.6) mg/dL Total Bilirubin 0.4 (0.0-1.0) mg/dL Direct Bilirubin 0.1 (0.0-0.5) mg/dL AST 22 (5-31) U/L ALT 11 (0-31) U/L Alkaline Phosphatase 85 (39-117) U/L Troponin I High Sens 136.3 H* 108.6 H* (<3.5-17.0) ng/L C-Reactive Protein 0.31 (< or = 0.50) mg/dL B-Natriuretic Peptide 217 H (<100) pg/mL Total Protein 8.0 (6.5-8.0) g/dL Albumin 4.4 (3.5-5.0) g/dL Lipase 22 (8-78) U/L Procalcitonin < 0.02 ng/mL TSH 1.00 (0.32-4.0) uIU/mL Urine Color Urine Appearance Urine pH (5.0-9.0) Ur Specific [place] (1.005-1.025) Urine Protein (Neg-Trace) mg/dL Urine Glucose (UA) (Negative) mg/dL Urine Ketones (Negative) mg/dL Urine Blood (Negative) Urine Nitrite (Negative) Ur Leukocyte Esterase (Negative) Urine RBC (0-2) /HPF Urine WBC (0-5) /HPF Ur Squamous Epith Cells (0-2) /HPF Urine Bacteria (None Seen) Hyaline Casts (0-2) /LPF COVID-19 (JOSE) (Negative) COVID-19 Clin Com Independent Interpretation I performed an independent interpretation of an: EKG, Plain X-Ray and CT Scan (R ovarian mass) Interpretation: Rate: 94 Rhythm: NSR [place]: left Normal P waves. Normal SRI. LBBB ST T wave : no ALBERT, inverted t waves I and aVL qTC: 500 prior studies: no change from prior The study has been interpreted contemporaneously by me. . Radiology Impression Discussion of test interpretation with radiology: I have reviewed the radiologist's reading. Independent Historian Clinical information obtained from an independent historian. History obtained from or confirmed by: Other (daughter) External Record Review External record reviewed: Inpatient record Discharge Plan Discharge Clinical Impression: Acute UTI, Weakness, Elevated troponin, Mass of right ovary Patient Disposition: Admitted As Inpatient
--- NOTE | 2023-04-19 11:13 | PC.NURSE ---
Able to establish IV but not obtain blood x 2 attempts. automation technologist at bedside to attempt at this time.
[2023-04-19 11:32] LABS: IDNOW Serial# 9DB6401D
[2023-04-19 11:33] LABS: COVID-19 Test Negative (Negative)
[2023-04-19 11:43] LABS: Basophils Percent Auto 0.2 % (0-2); Eosinophils Percent Auto 0.2 % (0-4); Hematocrit 32.5 % (37.0-47.0); Imm Gran Abs Auto 0.02 X10*3/uL (0.00-0.03); Imm Gran Pct Auto 0.3 % (0.0-0.4); Lymphocytes Absolute Auto 1.1 X10*3/uL (1.2-4.9); Lymphocytes Percent Auto 18.2 % (20-40); MANUAL DIFF FLAG SCAN; Mean Corpuscular HGB Conc 33.8 g/dl (31.0-35.0); Mean Corpuscular Hemoglobin 30.3 pg (27.0-33.0); Mean Corpuscular Volume 89.5 fL (80.0-98.0); Mean Platelet Volume 9.7 fL (9.4-12.3); Monocytes Absolute Auto 0.3 X10*3/uL (0.1-1.2); Monocytes Percent Auto 4.2 % (2-11); Neutrophils Absolute Auto 4.6 x10*3/uL (2.0-8.3); Neutrophils Percent Auto 76.9 % (45-73); Platelet Count 200 X10*3/uL (160-400); Red Blood Count 3.63 X10*6/uL (4.20-5.50); Red Cell Distribution Width 12.5 % (11.0-16.0); SCAN SMEAR FLAG 1; White Blood Count 5.9 X10*3/uL (4.8-10.8)
[2023-04-19 11:43] LABS: Bacteria Urine 4+ (None Seen); Hyaline Casts Urine 0-2 /LPF (0-2); RBC Urine 0-2 /HPF (0-2); Squamous Epithelial Cell Urine 0-2 /HPF (0-2); UACC Culture Trigger YES
[2023-04-19] MEDS: cefTRIAXone sodium 1 GM in 0.9 % Sodium Chloride 50 ML IV (11:51)
[2023-04-19 11:56] LABS: Lactic Acid 0.9 mmol/L (0.5-2.0)
[2023-04-19 12:04] LABS: B Type Natriuretic Peptide 217 pg/mL (<100)
[2023-04-19 12:06] LABS: Alanine Aminotransferase 11 U/L (0-31); Albumin Level 4.4 g/dL (3.5-5.0); Alkaline Phosphatase 85 U/L (39-117); Anion Gap 13 (12-20); Aspartate Amino Transferase 22 U/L (5-31); Bilirubin Direct 0.1 mg/dL (0.0-0.5); Bilirubin Total 0.4 mg/dL (0.0-1.0); Blood Urea Nitrogen 19 mg/dL (9-16); C Reactive Protein 0.31 mg/dL (< or = 0.50); Calcium 9.9 mg/dL (8.4-10.2); Carbon Dioxide 27 mmol/L (22-29); Chloride 107 mmol/L (96-108); Creatinine Clr Calc Pharmacy 38.7; Estimated Glomerular Filt Rate 52; Glucose Random 121 mg/dL (60-115); Lipase 22 U/L (8-78); Magnesium 1.9 mg/dL (1.6-2.6); Potassium 4.9 mmol/L (3.3-5.1); Sodium 142 mmol/L (135-145)
[2023-04-19 12:11] LABS: Troponin-I High Sensitivity 136.3 ng/L (<3.5-17.0)
[2023-04-19 12:22] LABS: SLIDE REVIEW VERIFIED
[2023-04-19 12:26] LABS: Procalcitonin < 0.02 ng/mL
[2023-04-19 14:01] LABS: Troponin-I High Sensitivity 108.6 ng/L (<3.5-17.0)
--- NOTE | 2023-04-19 14:32 | P.HPHOSP_ITS ---
History of Present Illness Date of Service: 04/19/23 Attending physician on admission: [facility] Chief Complaint: Generalized weakness, lower abdominal pain Pt is an 87-year-old [place]-speaking female with a PMH significant for?HTN, insulin-dependent diabetes type 2 with neuropathy, GERD, CKD 3, and anemia of chronic disease who presents to the ED with multiple complaints, including?left- sided abdominal pain, polyuria, and generalized weakness since last night. Pt also reports intermittently feeling like her heart was pounding and racing. Has also had reduced po intake for the past 1-2 weeks. She uses a cane to walk d/t balance issues, reports having more difficulty walking since last night. Denies N/V. In the ED pt was Labs were significant for troponin 136.3 with repeat flat at 108.6 (chronically elevated), and BNP 217, otherwise grossly unremarkable. No leukocytosis. Stable normocytic anemia of 11.0/32.5. No electrolyte abnormalities. Renal function baseline. Lactic acid WNL at 0.9. UA positive for UTI. CXR showed no acute abnormality. CT?of abdomen and pelvis found question of soft tissue mass in right adnexa, mild right hydronephrosis that may be basis of mass effect, and diffuse heterogeneity of bone marrow with several stable lytic lesions similar to CT of 2020 that may represent an infiltrative or neoplastic bone disorder. EKG demonstrated normal sinus rhythm with left bundle- branch block, and ST elevations in V1, V2 and V3, similar to previous. Pt was treated with ceftriaxone and furosemide 40 mg IV. Pt will be admitted to the hospital under observation for treatment and further evaluation of generalized weakness in the setting of UTI. Review of Systems 2 Review of Systems: Generalized weakness Left-sided lower abdominal pain Polyuria Palpitations Difficulty ambulating Denies chest pain/pressure No nausea, vomiting [facility] Medical History Hyperlipidemia HTN (hypertension) IBS (irritable bowel syndrome) Prolapsed internal hemorrhoids Chronic kidney disease, stage III (moderate) Obesity (BMI 30-39.9) Mixed hyperlipidemia Hypertensive heart disease Left bundle branch block Bladder prolapse Diabetes mellitus GERD (gastroesophageal reflux disease) Family History Father No problems noted. Mother No problems noted. Family/Other Lung cancer Esophagus cancer Other Mental health disorder Substance use disorder Surgical History History of bladder repair surgery History of ERCP History of bilateral cataract extraction History of cholecystectomy History of excision of mass History of colonoscopy History of ankle surgery Social History Housing: House Alcohol intake: never Patient Tobacco Use Status: Former Tobacco user Quit Date: 10 yrs ago e-Cigarette/Vaping Use: Never Used Second Hand Smoke Exposure: Yes Advance Directives: Yes Advance Directives Information Provided: No Advance Directives on File: No service: No Current occupational status: disabled Cognitive needs: Yes (cane/walker) Hearing needs: No Vision needs: Yes (glasses) Meds Allergies Allergy/AdvReac Type Severity Reaction Status Date / Time Iodinated Contrast Media Allergy Unknown UNKNOWN Verified 03/01/23 10:36 [IV CONTRAST] Home Medications Medication Instructions Recorded Confirmed Last Taken Type mirabegron 50 mg tablet,extended 50 mg PO DAILY 02/14/22 04/19/23 04/18/23 History release 24 hr (Myrbetriq) insulin glargine U-300 conc 300 unit subcut 04/19/23 04/18/23 History unit/mL (1.5 mL) subcutaneous pen (Toujeo SoloStar U-300 Insulin) tolterodine 4 mg capsule,extended 4 mg PO DAILY 04/19/23 Unknown History release 24 hr Physical Exam 2 Vital Signs and Narrative: Vital Signs: Last Vital Signs Temp 98.7 F 04/19/23 11:52 Pulse 85 04/19/23 14:04 Resp 13 04/19/23 14:04 BP 165/59 H 04/19/23 14:04 Pulse Ox 98 04/19/23 14:04 O2 Del Method Room Air 04/19/23 14:04 BMI result Body Mass Index 29.8 Constitutional: Alert, in no acute distress. Mental Status: Oriented to person, place and time. Eyes: Pupils are equal, round, and reactive to light. Ear, Nose, and Throat: Oropharynx clear, mucous membranes moist. Ears and nose without deformities. Trachea midline. Respiratory: Clear to auscultation bilaterally. No wheezing, rales, or rhonchi. Cardiovascular: S1, S2 regular. 2/6 murmur heard at right sternal border Gastrointestinal: Abdomen soft, non-distended, left lower quadrant tenderness. Normal bowel sounds. Neurologic: Cranial nerves II-XII are grossly intact bilaterally. No focal neurological deficits. Moves all extremities spontaneously. Skin: Warm, dry. Musculoskeletal: No cyanosis or clubbing. Extremities: No edema. Psychiatric: Normal mood and affect. Results Labs 04/19/23 11:32 04/19/23 11:32 Labs: Laboratory Results - last 24 hr 04/19/23 04/19/23 04/19/23 09:41 10:10 11:09 MCV MCH MCHC RDW Plt Count MPV Immature Gran % (Auto) Neut % (Auto) Lymph % (Auto) Placer % (Auto) Eos % (Auto) Baso % (Auto) Lymph # (Auto) Placer # (Auto) Eos # (Auto) Baso # (Auto) Abs Immat Gran (auto) Absolute Neuts (auto) Absolute Nucleated RBC Nucleated RBC % (auto) Smear Tech's Comments Anion Gap Estim Creat Clear Calc Estimated GFR POC Glucose 128 H Random Glucose Lactic Acid Calcium Magnesium Total Bilirubin Direct Bilirubin AST ALT Alkaline Phosphatase C-Reactive Protein B-Natriuretic Peptide Total Protein Albumin Lipase Procalcitonin TSH Urine Color Yellow Urine Appearance Clear Urine pH 7.0 Ur Specific [place] <= 1.005 Urine Protein 30 (1+) H Urine Glucose (UA) Negative Urine Ketones Negative Urine Blood Negative Urine Nitrite Positive H Ur Leukocyte Esterase Small (1+) H Urine RBC 0-2 Urine WBC 11-20 H Ur Squamous Epith Cells 0-2 Urine Bacteria 4+ Hyaline Casts 0-2 COVID-19 (JOSE) Negative COVID-19 Clin Com See Note 04/19/23 11:32 MCV 89.5 MCH 30.3 MCHC 33.8 RDW 12.5 Plt Count 200 MPV 9.7 Immature Gran % (Auto) 0.3 Neut % (Auto) 76.9 H Lymph % (Auto) 18.2 L Placer % (Auto) 4.2 Eos % (Auto) 0.2 Baso % (Auto) 0.2 Lymph # (Auto) 1.1 L Placer # (Auto) 0.3 Eos # (Auto) 0.0 Baso # (Auto) 0.0 Abs Immat Gran (auto) 0.02 Absolute Neuts (auto) 4.6 Absolute Nucleated RBC 0.000 Nucleated RBC % (auto) 0.0 Smear Tech's Comments VERIFIED Anion Gap 13 Estim Creat Clear Calc 38.7 Estimated GFR 52 POC Glucose Random Glucose 121 H Lactic Acid 0.9 Calcium 9.9 D Magnesium 1.9 Total Bilirubin 0.4 Direct Bilirubin 0.1 AST 22 ALT 11 Alkaline Phosphatase 85 C-Reactive Protein 0.31 B-Natriuretic Peptide 217 H Total Protein 8.0 Albumin 4.4 Lipase 22 Procalcitonin < 0.02 TSH 1.00 Urine Color Urine Appearance Urine pH Ur Specific [place] Urine Protein Urine Glucose (UA) Urine Ketones Urine Blood Urine Nitrite Ur Leukocyte Esterase Urine RBC Urine WBC Ur Squamous Epith Cells Urine Bacteria Hyaline Casts COVID-19 (JOSE) COVID-19 Clin Com Imaging Radiologist's Impressions: Impressions Abdomen/Pelvis CT 04/19/23 10:44 IMPRESSION: Questionable soft tissue mass in the right adnexa measuring approximately 5.0 x 5.2 x 4.9 cm incompletely characterized without intravenous contrast. MRI pelvis may be considered for further characterization. Mild right hydronephrosis. This may be on the basis of mass effect. Diffuse heterogeneity of the bone marrow with several stable lytic lesions. This may represent an infiltrative or neoplastic bone disorder. The appearance is similar to 2020. Chest X-Ray 04/19/23 11:15 IMPRESSION: No acute abnormality. Assessment and Plan (1) Acute UTI: Status: Acute (2) Weakness: Status: Acute Plan Pt is an 87-year-old [place]-speaking female with a PMH significant for?HTN, insulin-dependent diabetes type 2 with neuropathy, GERD, CKD 3, and anemia of chronic disease who presents to the ED with multiple complaints, including?left- sided abdominal pain, polyuria, and generalized weakness since last night. Pt will be admitted to the hospital under observation for treatment and further evaluation of generalized weakness in the setting of UTI. Acute UTI UA positive, patient with polyuria Will treat with ceftriaxone, started 04/19/2023 Pt does not meet sepsis criteria: Tachycardic, but Afebrile and no tachypnea or leukocytosis; lactic acid WNL at 0.9 Follow cultures Generalized weakness In setting of above PT evaluation Elevated troponins Initial troponin 136.3 with repeat down trending to 108.6 Likely type 2 in the setting of increased demand Patient experiencing intermittent palpitations Will monitor on telemetry Abnormal CT of abdomen and pelvis findings CT found questionable soft tissue mass in the right adnexa Should follow-up outpatient with [facility] for further workup Insulin-dependent diabetes type [address] on sliding scale insulin Continue Januvia Diabetic diet HTN Continue amlodipine Chronic dizziness Continue meclizine p.r.n. GERD Continue PPI Full Code Attending:?Dr. Rojo DVT Prophylaxis: Lovenox Pt will be admitted to the hospital under observation for treatment and further evaluation of generalized weakness in the setting of UTI. Patient be treated with IV antibiotics, close monitoring, and PT evaluation. Quality Stroke Does the patient have a stroke diagnosis?: No VTE Prior VTE?: No VTE Risk Level:: Medical - moderate - high VTE Device Contraindication: Treatment Not Indicated VTE Drug Contraindication: N/A - Med Ordered
--- NOTE | 2023-04-19 15:34 | PHA.MEDREC ---
Pharmacy Consult ? Medication Reconciliation Pharmacy has completed the medication reconciliation. Patients [facility] confirmed medication over the phone ([phone]) Has not taken any medication today per caregiver. Rajani Tipton CPhT
[2023-04-19] MEDS: Furosemide 20 MG/2 ML VIAL 40 MG IVPUSH (15:46)
--- NOTE | 2023-04-19 15:50 | PC.NURSE ---
Report taken from Kacey BOWEN assumed care of pt at 1515. Pt A&Ox3 skin pwd respirations even unlabored. Denies pain. VSS. Medicated per MAR. Warm blanket and additional pillow provided. Pt admitted observation, awaiting bed assignment.
[2023-04-19] MEDS: Enoxaparin Sodium 40 MG/0.4 ML SYRINGE SUBCUT (16:50)
[2023-04-19] MEDS: Acetaminophen 325 MG TABLET 650 MG PO (16:51)
[2023-04-19] MEDS: 0.9 % Sodium Chloride Flush 3 ML SYRINGE IVFLUSH (16:51)
--- NOTE | 2023-04-19 16:56 | PC.NURSE ---
Pt endorsing headache 07/09, medicated per MAR with PRN med. Offers no additional complaints at this time.
--- NOTE | 2023-04-19 17:21 | MHC.EDTECH ---
Patient inc therefore bed changed and repositioned
--- NOTE | 2023-04-19 17:52 | PC.NURSE ---
Pt reports positive relief from previously administered pain med. Resting on stretcher, awaiting bed assignment for admission.
--- NOTE | 2023-04-19 17:58 | MHC.EDTECH ---
Patient given dinner tray
--- NOTE | 2023-04-19 18:19 | PC.NURSE ---
Dinner tray provided to pt.
--- NOTE | 2023-04-19 19:00 | PC.NURSE ---
Report given to Patti BOWEN, pt exits my care at this time.
--- NOTE | 2023-04-19 20:03 | MHC.EDTECH ---
Patient bed pad changed and repositioned
[2023-04-19] MEDS: Gabapentin 400 MG CAPSULE PO (20:57)
--- NOTE | 2023-04-19 21:09 | PC.NURSE ---
This investment underwriter assumed care of this Pt at 1900. Pt A&Ox3, thai speaking, reports weakness and dizziness. Pt reports she walks with cane but has been very weak lately. Pt medicated per MAY. Report complete, Pt will be transported to room 470. Pt aware of plan.
[2023-04-20] VITALS (8 sets, daily range): BP systolic 136–178; BP diastolic 63–77; PULSE 77–88; RESP 18–20; TEMP 36.1–36.8; O2SAT 97–98
[2023-04-20 02:40] LABS: Glucose, Whole Blood 196 mg/dL (60-115)
[2023-04-20] MEDS: Labetalol HCL 100 MG/20 ML VIAL 10 MG IVPUSH (03:55)
[2023-04-20] MEDS: Losartan Potassium 50 MG TABLET PO (09:54)
[2023-04-20] MEDS: SITagliptin Phosphate 100 MG TABLET PO (09:54)
[2023-04-20] MEDS: Mirabegron 50 MG TAB.ER.24H PO (09:54)
[2023-04-20] MEDS: Gabapentin 400 MG CAPSULE PO (09:54)
[2023-04-20] MEDS: amLODIPine Besylate 5 MG TABLET PO (09:55)
[2023-04-20] MEDS: 0.9 % Sodium Chloride Flush 3 ML SYRINGE IVFLUSH ×2 (09:55→16:18)
[2023-04-20] MEDS: cefTRIAXone sodium 1 GM in 0.9 % Sodium Chloride 50 ML IV (10:12)
--- NOTE | 2023-04-20 10:44 | P.DS_ITS ---
DS: Providers Provider Date of Service: 04/20/23 Date of admission: 04/19/23 15:27 Primary care physician: Rioc Deras MD DS: Diagnosis Discharge Diagnosis (1) Acute UTI: Status: Acute (2) Weakness: Status: Resolved (3) Mass of right ovary: Status: Acute DS: Summary Hospital Course Hospital Course: Hospital Course: This 87 yo F with past medical history of HTN, insulin-dependent DM with neuropathy, GERD, CKD 3, LBBB, chronic dizziness (treated with meclizine) and anemia of chronic disease presented to the ED on 04/19/2023 complaining of left- sided abdominal pain, polyuria, and generalized weakness that started 04/18/23. She also complained of intermittent racing heart. She denied fevers, nausea, vomiting, chest/shoulder/jaw pain. She admitted to decreased oral intake for 1-2 weeks. In the ED labs were significant for UA positive for UTI, troponin 136.3 with repeat 108.6 (review of our records showed chronic elevation), BNP of 217, normocytic anemia of 11.0/32.5 (stable). She had no leukocytosis, electrolyte abnormalities, or changes in her baseline renal function. Lactic acid was normal at 0.9. CT of abdomen and pelvis showed a soft tissue mass in right adnexa, mild right hydronephrosis that may be basis of mass effect, and diffuse heterogeneity of bone marrow with several stable lytic lesions similar to CT of 2020 that may represent an infiltrative or neoplastic bone disorder. CXR showed no pulmonary edema or other acute processes. EKG demonstrated normal sinus rhythm with left bundle-branch block, and ST elevations in V1, V2 and V3 (similar to historical EKGs). In the ED she received Lasix 40mg IV and Ceftriaxone 1 g IV. She was admitted to overnight for observation and further evaluation. On 04/20/2023 patient felt better. She denied previous abdominal pain and endorsed improvement in weakness. She was evaluated by PT who recommended XXX. Ultrasound of the mass of the right adnexa showed XXX. Patient was recommended to follow up with OBGYN on an outpatient basis. Telemetry overnight showed normal sinus rhythm and patient denied palpitations, chest pain, SOB, or other cardiac symptoms today. Troponins were likely type 2 in setting of increased myocardial oxygen demand. Patient medically stable. Will discharge home with PO cefuroxime 250 BID for 7 total days of antibiotic treatment. Insulin-dependent diabetes type 2 Continue Januvia and home insulin Diabetic diet HTN Continue amlodipine Chronic dizziness Continue meclizine PRN GERD Continue PPI Status at Discharge Functional status at discharge: uses cane/walker Overall status at discharge: patient is back to baseline Time Attestation Discharge coordination time: Greater than 30 minutes Quality: Safe Use of Opioids Does Pt have an Active Cancer Diagnosis on the Problem List?: No Quality: Stroke Does the patient have a stroke diagnosis?: No Physical Exam Vital Signs: Vital Signs: Last Vital Signs Temp 97.4 F 04/20/23 07:09 Pulse 77 04/20/23 07:09 Resp 20 04/20/23 07:09 BP 169/70 H 04/20/23 07:09 Pulse Ox 97 04/20/23 07:09 O2 Del Method Room Air 04/20/23 07:09 O2 Flow Rate 98 04/19/23 23:24 BMI result Body Mass Index 29.8 Appearance: Alert & Oriented X3. No acute distress. CVS: RRR, no murmurs Respiratory: No respiratory distress. No wheezes, rhonchi. Abdomen: Soft, non-tender, non-distended. No suprapubic or CVA tenderness Skin: Skin warm and dry. Extremities: No lower extremity edema. Neuro: Grossly in tact DS: Data Data Completed and Pending Labs on day of discharge: Laboratory Results - last 24 hr 04/19/23 04/19/23 04/19/23 10:10 11:09 11:32 WBC 5.9 RBC 3.63 L Hgb 11.0 L Hct 32.5 L MCV 89.5 MCH 30.3 MCHC 33.8 RDW 12.5 Plt Count 200 MPV 9.7 Immature Gran % (Auto) 0.3 Neut % (Auto) 76.9 H Lymph % (Auto) 18.2 L [place] % (Auto) 4.2 Eos % (Auto) 0.2 Baso % (Auto) 0.2 Lymph # (Auto) 1.1 L [place] # (Auto) 0.3 Eos # (Auto) 0.0 Baso # (Auto) 0.0 Abs Immat Gran (auto) 0.02 Absolute Neuts (auto) 4.6 Absolute Nucleated RBC 0.000 Nucleated RBC % (auto) 0.0 Smear Tech's Comments VERIFIED Sodium 142 Potassium 4.9 Chloride 107 Carbon Dioxide 27 Anion Gap 13 BUN 19 H Creatinine 1.00 Estim Creat Clear Calc 38.7 Estimated GFR 52 POC Glucose Random Glucose 121 H Lactic Acid 0.9 Calcium 9.9 D Magnesium 1.9 Total Bilirubin 0.4 Direct Bilirubin 0.1 AST 22 ALT 11 Alkaline Phosphatase 85 Troponin I High Sens 136.3 H* C-Reactive Protein 0.31 B-Natriuretic Peptide 217 H Total Protein 8.0 Albumin 4.4 Lipase 22 Procalcitonin < 0.02 TSH 1.00 Urine Color Yellow Urine Appearance Clear Urine pH 7.0 Ur Specific [facility] <= 1.005 Urine Protein 30 (1+) H Urine Glucose (UA) Negative Urine Ketones Negative Urine Blood Negative Urine Nitrite Positive H Ur Leukocyte Esterase Small (1+) H Urine RBC 0-2 Urine WBC 11-20 H Ur Squamous Epith Cells 0-2 Urine Bacteria 4+ Hyaline Casts 0-2 COVID-19 (JOSE) Negative COVID-19 Clin Com See Note 04/19/23 04/19/23 13:28 21:50 WBC RBC Hgb Hct MCV MCH MCHC RDW Plt Count MPV Immature Gran % (Auto) Neut % (Auto) Lymph % (Auto) [place] % (Auto) Eos % (Auto) Baso % (Auto) Lymph # (Auto) [place] # (Auto) Eos # (Auto) Baso # (Auto) Abs Immat Gran (auto) Absolute Neuts (auto) Absolute Nucleated RBC Nucleated RBC % (auto) Smear Tech's Comments Sodium Potassium Chloride Carbon Dioxide Anion Gap BUN Creatinine Estim Creat Clear Calc Estimated GFR POC Glucose 196 H Random Glucose Lactic Acid Calcium Magnesium Total Bilirubin Direct Bilirubin AST ALT Alkaline Phosphatase Troponin I High Sens 108.6 H* C-Reactive Protein B-Natriuretic Peptide Total Protein Albumin Lipase Procalcitonin TSH Urine Color Urine Appearance Urine pH Ur Specific [facility] Urine Protein Urine Glucose (UA) Urine Ketones Urine Blood Urine Nitrite Ur Leukocyte Esterase Urine RBC Urine WBC Ur Squamous Epith Cells Urine Bacteria Hyaline Casts COVID-19 (JOSE) COVID-19 Clin Com Discharge Plan Discharge Anticipated Discharge Date/Time: 04/20/23 15:11 Patient Disposition: Home, Self-Care Discharge Diagnosis: UTI Referrals: Rico Deras MD [Primary Care Provider] - 1 Week Jose F Leon MD [Physician] - 1 Week Discharge Medications: New cefuroxime axetil 250 mg tablet 250 mg PO BID 4 Days Qty: 8 0RF Continued (DME) blood pressure monitor [Blood Pressure Kit] Kit See Rx Instructions .ROUTE .MEDSUPPLY Qty: 1 0RF Rx Instructions: As directed (DME) bedside commode Kit See Rx Instructions .Route Qty: 1 0RF Rx Instructions: As directed amlodipine 5 mg tablet 5 mg PO DAILY Qty: 90 1RF gabapentin 400 mg capsule 400 mg PO BID Qty: 180 1RF losartan 50 mg tablet 50 mg PO DAILY Qty: 90 1RF (DME) blood-glucose meter [OneTouch Ultra2 Meter] Misc See Rx Instructions .Route Qty: 1 0RF Rx Instructions: test 3 times daily (DME) OneTouch Ultra Test Strip See Rx Instructions .Route Qty: 100 12RF Rx Instructions: test 3 times per day (DME) lancets [OneTouch UltraSoft 2 Lancet] 30 gauge misc See Rx Instructions .Route Qty: 100 12RF Rx Instructions: test 3 times per day omeprazole 20 mg capsule,delayed release(DR/EC) 20 mg PO DAILY Qty: 90 0RF tramadol 50 mg tablet 50 mg PO BID PRN (Reason: pain) 30 Days Qty: 60 0RF Trulicity 0.75 mg/0.5 mL pen injector 0.75 mg subcut QWEEK Qty: 12 0RF Januvia 100 mg tablet 100 mg PO DAILY Qty: 90 1RF epinephrine [EpiPen 2-Mariano] 0.3 mg/0.3 mL auto-injector 0.3 mg IM Q10M PRN (Reason: anaphylaxis) Qty: 1 0RF Rx Instructions: for 2 doses tolterodine 4 mg capsule,extended release 24hr 4 mg PO DAILY Touekaterina SoloStar U-300 Insulin 300 unit/mL (1.5 mL) insulin pen subcut (DME) diaper,brief,adult,disposable Misc See Rx Instructions .Route Qty: 100 0RF Rx Instructions: As directed meclizine [Motion Sickness Relief(mecliz)] 25 mg tablet 25 mg PO DAILY PRN (Reason: motion sickness) Qty: 14 3RF Myrbetriq 50 mg tablet extended release 24 hr 50 mg PO DAILY No Action carvedilol 3.125 mg tablet 3.125 mg PO BID Qty: 60 5RF Rx Instructions: must administer with a meal/food aspirin 81 mg tablet,delayed release (DR/EC) 81 mg PO DAILY Qty: 30 5RF Rx Instructions: Take 1 tablet daily to help your heart. atorvastatin 20 mg tablet 20 mg PO BEDTIME 30 Days Qty: 30 5RF Rx Instructions: Cholesterol-lowering agent. Discharge Orders: Discharge Order (Routine); Ordered 04/20/23 Ordered By: Maximiliano Rojo Diet: Diabetic diet Activity on Discharge: As tolerated Stand Alone Forms: Patient Portal Discharge page Care Plan Goals: Recover from UTI Follow up with OBGYN for ovarian mass Health Concerns: Urinary tract infection, ovarian mass, weakness Plan of Treatment: Begin taking the antibiotic (Cefuroxime 250mg) twice a day by mouth. Follow up with holistic pulser outpatient for further managment. Follow up with your primary care physician in at least 1 week. Assessment: As above. Discharge Date/Time: 04/20/23 17:52
[2023-04-20 13:50] LABS: Glucose, Whole Blood 171 mg/dL (60-115)
--- NOTE | 2023-04-20 14:54 | MHC.CM.PN ---
Addendum entered by Hermila Bingham 04/20/23 14:59: CORRECTION: OBSERVATION NOTICE DELIVERED, NOT IMM Original Note: CM MET WITH PT AND FAMILY AT BEDSIDE WITH THE ASSISTANCE OF A PROJECT CONTROL OFFICER PT LIVES WITH HER SON AND GRANDSON AND HAS TWO HOURS OF [employer] CONTR[employer] WORKER SERVICES PER DAY SHE USES A ROLLATOR TO AMBULATE PT SAYS SHE HAS A HCP, COPY REQUESTED PCP: SANTIAGO NOVAK IMM DELIVERED DCP: HOME RESUME [employer] CONTR[employer] WORKER FAMILY TO TRANSPORT
[2023-04-20] MEDS: Enoxaparin Sodium 40 MG/0.4 ML SYRINGE SUBCUT (16:18)
[2023-04-20 16:22] LABS: Anion Gap 12 (12-20); Carbon Dioxide 28 mmol/L (22-29); Chloride 105 mmol/L (96-108); Potassium 4.1 mmol/L (3.3-5.1); Sodium 141 mmol/L (135-145)
[2023-04-20 16:30] LABS: Glucose, Whole Blood 149 mg/dL (60-115)
== END 2023-04-20 17:52 | disposition home or self-care (01) ==
LOC: HO.ED 13:28 → HO.EDOVER 16:05 → HO.IMC 19:59
PROVIDERS: Admitting Provider Student in an Organized Health Care Education/Training Program; Emergency Provider Emergency Medicine; PCP Internal Medicine; Visit Provider Internal Medicine
DX: N39.0 Urinary tract infection, site not specified (principal); B96.1 Klebsiella pneumoniae [K. pneumoniae] as the cause of diseases classified elsewhere; R53.1 Weakness; R10.30 Lower abdominal pain, unspecified; R35.0 Frequency of micturition; E11.22 Type 2 diabetes mellitus with diabetic chronic kidney disease; I12.9 Hypertensive chronic kidney disease with stage 1 through stage 4 chronic kidney disease, or unspecified chronic kidney disease; N18.30 Chronic kidney disease, stage 3 unspecified; D63.1 Anemia in chronic kidney disease; R19.7 Diarrhea, unspecified; R79.89 Other specified abnormal findings of blood chemistry; N83.9 Noninflammatory disorder of ovary, fallopian tube and broad ligament, unspecified; I44.7 Left bundle-branch block, unspecified; R42 Dizziness and giddiness; R35.89 Other polyuria; N95.9 Unspecified menopausal and perimenopausal disorder; Z11.52 Encounter for screening for COVID-19; Z79.899 Other long term (current) drug therapy
CPT/HCPCS: 36415; 71045; 74176; 76830; 76856; 80048; 80051; 80076; 81001; 82947; 83605; 83690; 83735; 83880; 84145; 84443; 84484; 85025; 86140; 87040; 87086; 87088; 87186; 87635; 93005; 93975; 96365; 96366; 96372; 96375; 97163; 99222; 99285; J0696; J1650; J1920; J1940

== ENCOUNTER → 2023-04-19 15:27 | Outpatient (BNV) | payer OTHER, SELFPAY | PROVIDERS: Admitting Provider Student in an Organized Health Care Education/Training Program; Emergency Provider Emergency Medicine; PCP Internal Medicine; Visit Provider Student in an Organized Health Care Education/Training Program | DX: E11.40 Type 2 diabetes mellitus with diabetic neuropathy, unspecified (principal); N39.0 Urinary tract infection, site not specified; N18.30 Chronic kidney disease, stage 3 unspecified; N83.8 Other noninflammatory disorders of ovary, fallopian tube and broad ligament; R53.1 Weakness | CPT/HCPCS: 99222; 99239 ==

== ENCOUNTER 2023-04-25 09:48 | Outpatient (AMB) | payer OTHER, SELFPAY ==
[2023-04-25 09:50] VITALS: BP 140/74; PULSE 98; BMI 28.8
--- NOTE | 2023-04-25 09:50 | A.OFFVIS_ITS ---
Intake Vital Signs 04/25/23 09:50 Height 5 ft 3 in Weight 162 lb 11.218 oz BMI 28.8 BP 140/74 H Blood Pressure Location Lt brachial Position Sitting Pulse 98 Pulse Source Auscultation Intake Visit Reasons: f/u after testing Credentialing Coordinator Required: No Multimedia Specialist: Multimedia Specialist Present Accompanied by: Grand Child Allergies Iodinated Contrast Media [IV CONTRAST] Allergy (Unknown, Verified 04/25/23 09:54) UNKNOWN Medication List - Last Reconciled 04/25/23 by YADIRA Palm amlodipine 5 mg PO DAILY blood pressure monitor (Blood Pressure Kit) As directed blood sugar diagnostic (F[employer]yl Laboratoriesuch Ultra Test strips) test 3 times per day blood-glucose meter (MobclixTouch Ultra2 Meter) test 3 times daily cefuroxime axetil 250 mg PO BID 4 days commode (bedside commode) As directed diaper,brief,adult,disposable As directed dulaglutide (Trulicity) 0.75 mg (0.5 mL) subcut QWEEK epinephrine (EpiPen 2-Mariano) 0.3 mg (0.3 mL) IM Q10M PRN gabapentin 400 mg PO BID insulin glargine U-300 conc (Toujeo SoloStar U-300 Insulin) units subcut lancets (MobclixTouch UltraSoft 2 Lancet) test 3 times per day losartan 50 mg PO DAILY meclizine (Motion Sickness Relief (meclizine)) 25 mg PO DAILY PRN mirabegron ER (Myrbetriq) 50 mg PO DAILY omeprazole 20 mg PO DAILY sitagliptin phosphate (Januvia) 100 mg PO DAILY tolterodine ER 4 mg PO DAILY tramadol 50 mg PO BID PRN 30 days HPI f/u after testing HPI Details Brit is an 87-year-old female past medical history of hypertension, hyperlipidemia, diabetes, obesity, chronic kidney disease, left bundle branch block who was admitted to [facility] last week with left-sided chest discomfort and treated for UTI. Her troponins were elevated which was thought to be related to demand. Today she reports she still has had some weakness since her hospital discharge. She will feel an occasional burning in her left chest region. She says it lasts only a few seconds and goes away. There is no pattern to when it occurs. No shortness of breath, PND, orthopnea or edema. She will feel occasional heart palpitations. No sustained rapid or irregular rates noted. She is taking meds as directed. She lives with her son. She is mostly sedentary and ambulates with a cane. Her daughter is present and assisting with translation at their request. Permit signed [facility] Medical History (Updated 04/25/23 @ 11:17 by LUIS ENRIQUE PalmC) Hyperlipidemia HTN (hypertension) IBS (irritable bowel syndrome) Prolapsed internal hemorrhoids Chronic kidney disease, stage III (moderate) Obesity (BMI 30-39.9) Mixed hyperlipidemia Hypertensive heart disease Left bundle branch block Bladder prolapse Diabetes mellitus GERD (gastroesophageal reflux disease) Surgical History History of bladder repair surgery History of ERCP History of bilateral cataract extraction History of cholecystectomy History of excision of mass History of colonoscopy History of ankle surgery Family History Father No problems noted. Mother No problems noted. Family/Other Lung cancer Esophagus cancer Other Mental health disorder Substance use disorder Social History Household Members: Family Housing: House Do you presently have visiting nurse or other home services: Yes (every 6 months) Alcohol intake: never Patient Tobacco Use Status: Former Tobacco user Quit Date: 10 yrs ago e-Cigarette/Vaping Use: Never Used Second Hand Smoke Exposure: No Advance Directives Date on File: 04/19/23 service: No Current occupational status: disabled Cognitive needs: Yes (cane/walker) Hearing needs: No Vision needs: Yes (glasses) Review of Systems Const All systems reviewed & are unremarkable except as noted in HPI and below ENT Reports dizziness Card Reports chest pain, Denies chest pain at rest, Denies chest pain with activity, Denies rapid heart rate, Denies pedal edema, Denies edema, Denies leg edema, Denies lightheadedness, Denies palpitations, Denies dyspnea, Denies dyspnea on exertion and Denies orthopnea Resp Denies cough, Denies dyspnea and Denies dyspnea on exertion GI Denies hematochezia and Denies change in stool character Musc Denies abnormal gait, Denies limited range of motion, Denies muscle cramps, Denies muscle weakness, Denies numbness, Denies radiating pain into limb, Denies stiffness and Denies tingling Neuro Denies abnormal gait, Reports dizziness, Denies numbness and Denies tingling Endo Denies palpitations Physical Exam Vital Signs: Last Vital Signs Pulse 98 04/25/23 09:50 BP 140/74 H 04/25/23 09:50 BMI result Body Mass Index 28.8 Const Other: Somewhat frail, ambulates slow with cane General: cooperative, healthy appearing, comfortable and no acute distress Orientation/consciousness: patient oriented x3 Neck Neck: Yes normal visual inspection and Yes no JVD Resp Effort & Inspection: normal respiratory effort Auscultation: clear to auscultation bilaterally, no rales, no rhonchi and no wheezes Cardio Jugular venous distension: no JVD Rate: regular rate Rhythm: regular rhythm Heart sounds: S1 normal heart sound present, S2 normal heart sound present, no murmurs and no rubs Neuro General: patient oriented x3 Extrem General: Yes normal to inspection, No no pedal edema and No calf tenderness Psych Appearance: grossly normal Mental Status: mental status grossly normal Speech and movement: Normal speech and movement present Assessment & Plan Assessment & Plan (1) Cardiomyopathy: Code(s): I42.9 - Cardiomyopathy, unspecified Plan: Newer finding of cardiomyopathy. She was recently admitted to [facility] with UTI and troponin levels were checked. Troponins were elevated to level of secondary NSTEMI which was thought to be related to demand. Echocardiogram done on 04/09/2023 showed EF 35-40%, impaired relaxation, mild aortic stenosis. Prior echo done 11/24/2019 had shown EF 55-60%, mild aortic stenosis. She does have a history of left bundle branch block. She does not have a known history of CAD though she does have multiple cardiac risk factors including hypertension, hyperlipidemia, diabetes, obesity and chronic kidney disease. Today she does report an intermittent burning in her left chest region lasting seconds. Will check a pharmacological nuclear stress test to evaluate for ischemia. She is agreeable to have further testing to evaluate her heart condition. She is not able to walk on a treadmill as she ambulates very slowly with a cane. She is not on aspirin for unclear reason. She is only mildly anemic. Will start on aspirin 81 mg daily. Her blood pressure is elevated at 140/74, heart rate 98. Will add carvedilol 3.125 mg b.i.d.. Will have her continue amlodipine and losartan. She is not on statin at this time. Her LFTs are normal, LDL 90 on 02/26/2023. She likely has some degree of coronary artery disease. Will start on atorvastatin at 20 mg daily. Plan for fasting lipid profile in about 2 months. Cardiology follow-up in 4-6 weeks, sooner if needed. (2) Left bundle branch block: Comment: Known left bundle-branch block. Prior workup had shown no evidence of myocardial ischemia. Code(s): I44.7 - Left bundle-branch block, unspecified Plan: History of left bundle branch block. May be contributing to her left bundle branch block (3) Hypertensive heart disease: Comment: Moderate LVH by echocardiogram, September 2019 consistent with hypertensive heart disease. No evidence of heart failure. Code(s): I11.9 - Hypertensive heart disease without heart failure Plan: Last echo showing mildly increased left ventricular wall thickness, EF 35-40%, left atrium is mildly dilated, right atrium is likely dilated. (4) HTN (hypertension): Code(s): I10 - Essential (primary) hypertension Plan: Blood pressure goal less than 130/85. Mildly elevated at present. Adding carvedilol. Continue amlodipine and losartan Plan Time spent on chart review, documentation, interview and assessment Orders: Orders CA lexiscan stress w claritza Today I42.9 - Cardiomyopathy, unspecified, I44.7 - Left bundle-branch block, unspecified NM cardiolite stress test Today I42.9 - Cardiomyopathy, unspecified, I44.7 - Left bundle-branch block, unspecified Medications: New carvedilol must administer with a meal/food 3.125 mg PO BID 60 tabs 5RF aspirin Take 1 tablet daily to help your heart. 81 mg PO DAILY 30 tabs 5RF atorvastatin Cholesterol-lowering agent. 20 mg PO BEDTIME 30 days 30 tabs 5RF Coding Level of Care Code Est Pt Level 4 (66175) Diagnoses Cardiomyopathy I42.9 Left bundle branch block I44.7 Hypertensive heart disease I11.9 HTN (hypertension) I10 Time Spent (min) 28
== END 2023-04-25 10:23 | disposition home or self-care (01) ==
PROVIDERS: PCP Internal Medicine; Visit Provider Nurse Practitioner Family
DX: I42.9 Cardiomyopathy, unspecified (principal); I44.7 Left bundle-branch block, unspecified; I11.9 Hypertensive heart disease without heart failure; I10 Essential (primary) hypertension
CPT/HCPCS: 99214

== ENCOUNTER → 2023-04-25 09:48 | Outpatient (BNVA) | payer OTHER, SELFPAY | PROVIDERS: PCP Internal Medicine; Visit Provider Nurse Practitioner Family | DX: I42.9 Cardiomyopathy, unspecified (principal); I44.7 Left bundle-branch block, unspecified; I11.9 Hypertensive heart disease without heart failure | CPT/HCPCS: 99212 ==

== ENCOUNTER 2023-05-08 11:21 | Outpatient (AMB) | payer OTHER, SELFPAY ==
[2023-05-08 11:24] VITALS: BP 148/66; PULSE 81; O2SAT 96; BMI 28.5
--- NOTE | 2023-05-08 11:24 | A.OFFPC_ITS ---
Vital Signs 05/08/23 11:24 Height 5 ft 3 in Weight 73.028 kg BMI 28.5 BP 148/66 H Blood Pressure Location Lt brachial Position Sitting Pulse 81 Pulse Source Pulse Oximeter Pulse Oximetry (%) 96 Oxygen Delivery Method Room Air Intake Visit Reasons: [facility] [place] 04/19-04/21 UTI Intake Note: Patient here for HDF from [facility] [place] dish 04/21 UTI Trade Mark Attorney Required: No Accompanied by: FIREFIGHTING EQUIPMENT SPECIALIST/ Grandaughter Allergies Iodinated Contrast Media [IV CONTRAST] Allergy (Unknown, Verified 05/08/23 11:26) UNKNOWN Tobacco use date assessed: 05/08/23 Fall risk assessment: No Falls in past year Last assessed Fall Risk: 05/08/23 Dental Screening Dental Screen Date: 05/08/23 Did you have a dental visit in the last 12 months?: No Did you have a dental problem in the last 6 months where you did not have access to dental care?: No Was dental information given to patient?: Patient declined HPI HPI Comments History of Present Illness Details 87-year-old female with history hyperten javier, insulin-dependent type 2 diabetes, CAD, CKD 3 among others presents to the office today with her granddaughter, Екатерина, for hospital discharge follow-up. She was admitted to [facility] from 04/19-04/20 due to UTI with weakness. No leukocytosis, VSS< no sepsis. CT abd/pelvis showed soft tissue mass in the right adnexa with mild right hydronephrosis possibly basis of mass effect and diffuse heterogenicity of bone marrow with several stable lytic lesions similar to prior CT (2020). Subsequent transvaginal/pelvic ultrasound showed a stable heterogenous right ovary, unchanged from prior imaging. She complained of left abdominal pain. Troponin was elevated 136 but flat with repeat 106. EKG was without any acute ischemic changes. Treated overnight with IV ceftriaxone. She was discharged home without services on cefuroxime 250mg BID x 7 days which she has completed. Today she denies any ongoing fevers, chills, dysuria, hematuria, abd pain, n/v, flank pain, urinary frequency/urgency. She reports lightheadedness occurring intermittently ongoing for years. Has been seen by pcp for this. MEclizine has no effect. No room spinning dizziness. She is reporting fluid sensation in the left ear, no pain or hearing loss. No falls. Also reports weakness. She did have echo recently showing reduced LV systolic function with EF 35-40% and evidence of cardiomyopathy which could be related to her symptoms. Was sen by cardiology 04/25 and is being scheduled for pharmacologic nuclear stress test. table gait when using cane/walker. She is concerned about her chronic anemia, wondering why she has not been on any medication for this. Discussed that her anemia has actually improved and is normocytic. In the absence of any bleeding, it is likely this is related to chronic disease. [facility] Medical History Hyperlipidemia HTN (hypertension) IBS (irritable bowel syndrome) Prolapsed internal hemorrhoids Chronic kidney disease, stage III (moderate) Obesity (BMI 30-39.9) Mixed hyperlipidemia Hypertensive heart disease Left bundle branch block Bladder prolapse Diabetes mellitus GERD (gastroesophageal reflux disease) Surgical History History of bladder repair surgery History of ERCP History of bilateral cataract extraction History of cholecystectomy History of excision of mass History of colonoscopy History of ankle surgery Family History Father No problems noted. Mother No problems noted. Family/Other Lung cancer Esophagus cancer Other Mental health disorder Substance use disorder Social History Household Members: Family Housing: House Do you presently have visiting nurse or other home services: Yes (every 6 months) Alcohol intake: never Patient Tobacco Use Status: Former Tobacco user Quit Date: 10 yrs ago e-Cigarette/Vaping Use: Never Used Second Hand Smoke Exposure: No Advance Directives Date on File: 04/19/23 service: No Current occupational status: disabled Cognitive needs: Yes (cane/walker) Hearing needs: No Vision needs: Yes (glasses) Questionnaire PHQ-9 Over the last 2 weeks, how often have you been bothered by any of the following problems? 1. Little interest or pleasure in doing things: not at all 2. Feeling down, depressed, or hopeless: not at all 3. Trouble falling or staying asleep, or sleeping too much: not at all 4. Feeling tired or having little energy: not at all 5. Poor appetite or overeating: not at all 6. Feeling bad about yourself - or that you are a failure or have let yourself or your family down: not at all 7. Trouble concentrating on things, such as reading the newspaper or watching television: not at all 8. Moving or speaking so slowly that other people could have noticed. Or the opposite - being so fidgety or restless that you have been moving around a lot more than usual: not at all 9. Thoughts that you would be better off or of hurting yourself in some way: not at all Total score: 0 Source: Developed by Drs. Vu Harris, Huma Roque, Ronak Nichols and colleagues, with an educational yury from [employer]. Thrive Questionnaire Date Thrive assessed: 05/08/23 I am a: Patient What is your living situation today?: I have a steady place to live Within the past 12 months, did the food you bought not last and you didn't have the money to get more?: Never true Within the past 12 months, did you worry whether your food would run out before you got money to buy more?: Never true Do you have trouble paying for medicines?: No Do you have trouble getting transportation to medical appointments?: No Do you have trouble paying your heating and electricity bill?: No Do you have trouble taking care of your child, family member or friend?: No Do you have trouble with day-to-day activities such as bathing, preparing meals, shopping, managing finances, etc.?: Yes Are you currently unemployed and looking for a job?: No Are you interested in more education?: No Please select the resources that you would like help with: None Currently or been in a relationship where the following occur: no concerns reported THRIVE Score: 0 AUDIT C Alcohol Use Questionnaire (AUDIT-C) 1. How often do you have a drink containing alcohol?: Never Total Score: 0 MENDEL-7 AMB Questionnaire MENDEL-7 Date MENDEL - 7 assessed: 05/08/23 Feeling nervous, anxious, or on edge: 0 = Not at all Not being able to stop or control worryin = Not at all Worrying too much about different things: 0 = Not at all Trouble relaxin = Not at all Being so restless that it is hard to sit still: 0 = Not at all Becoming easily annoyed or irritable: 0 = Not at all Feeling afraid as if something awful might happen: 0 = Not at all Total MENDEL-7 score (0-4 normal; 5-9 mild; 10-14 moderate; 15-21 severe): 0 Source: Developed by Drs. Vu Harris, Huma Roque, Ronak Nichols and colleagues, with an educational yury from [employer]. Review of Systems Const All systems reviewed & are unremarkable except as noted in HPI and below Physical exam (Primary Care) Vital Signs: Last Vital Signs Pulse 81 05/08/23 11:24 BP 148/66 H 05/08/23 11:24 Pulse Ox 96 05/08/23 11:24 Oxygen Delivery Method Room Air 05/08/23 11:24 BMI result Body Mass Index 28.5 Tobacco/Smoking Status: Tobacco use Status Tobacco use date assessed 05/08/23 05/08/23 11:30 Patient Tobacco Use Status Former Tobacco user 05/08/23 11:30 e-Cigarette/Vaping Use Never Used 05/08/23 11:30 PHQ-9: PHQ-9 Score PHQ-9: Total score 0 05/08/23 11:33 Thrive Assessment: Date of Thrive Assessment Date Thrive assessed 05/08/23 05/08/23 11:33 Currently or been in a relationship where the following occur: no concerns reported Const Other: Constitutional - Awake and Alert, No apparent distress Eyes - PERRLA, EOMI Ears- External ears normal, canals clear, TMs pearly posada and in tact with +air fluid levels L ear Cardiovascular - S1S2, RRR, No edema Respiratory - Normal lung expansion, Normal respiratory effort, No respiratory distress, CTA bilaterally Extremities - no calf tenderness bilaterally, no swelling Skin - Warm/Dry Neurological - Alert & oriented x3, CN II-XII in tact Psychological - Appropriate affect Results Reviewed Results Reviewed: cbc, bmp, trops, cxr, ua, ct abd/pelvis, transvaginal/pelvis u/s, h&p, discharge summary, echo, cardiology office note Assessment and Plan Assessment & Plan (1) Dizziness: Code(s): R42 - Dizziness and giddiness Plan: Ongoing for years. Symptoms sound less consistent with vertigo and not experiencing relief with meclizine. She does have an effusion of the L ear which may be contributing (though less likely given duration of symptoms. Trial claritin and flonase. Reviewed echo 04/09/23 showing evidence of cardiomyopathy and HFrEF which could also be contributing. Follow up with cardiology and for pharm nuclear stress test as scheduled. Continue use of assistive devices for ambulation. (2) Acute UTI: Code(s): N39.0 - Urinary tract infection, site not specified Plan: Resolved. Completed course cefuroxime. Asymptomatic (3) Cardiomyopathy: Code(s): I42.9 - Cardiomyopathy, unspecified Plan: See above (4) Adnexal mass: Code(s): N94.89 - Other specified conditions associated with female genital organs and menstrual cycle Plan: CT abd/pelvis and transvaginal/pelvic u/s showed heterogenous R adnexal mass, but stable. However with possible mass effect hydronephrosis. Referred to OBGYN for further evaluation. Orders: Referrals TEXTILE BAG SEWER Referral N94.89 - Other specified conditions associated with female genital organs and menstrual cycle Medications: New polyethylene glycol 3350 (Miralax) 17 grams PO DAILY 238 grams 2RF fluticasone propionate 50 mcg/actuation (Allergy Relief (fluticasone)) administer into each nostril 2 sprays intranasal DAILY 16 grams 3RF loratadine (Allergy Relief (loratadine)) 10 mg PO DAILY 30 tabs 3RF Coding Level of Care Code Est Pt Level 5 (99730) Diagnoses Dizziness R42 Acute UTI N39.0 Cardiomyopathy I42.9 Adnexal mass N94.89 Time Spent (min) 45 Comment time reviewing as above, with pt/granddaughter, documentation
== END 2023-05-08 12:39 | disposition home or self-care (01) ==
PROVIDERS: PCP Internal Medicine; Visit Provider Physician Assistant
DX: R42 Dizziness and giddiness (principal); N39.0 Urinary tract infection, site not specified; I42.9 Cardiomyopathy, unspecified; N94.89 Other specified conditions associated with female genital organs and menstrual cycle
CPT/HCPCS: 99215

== ENCOUNTER → 2023-06-06 10:01 | Outpatient (REF) | payer OTHER, SELFPAY ==
--- NOTE | ~2023-06-06 | NM_ITS ---
Myocardial perfusion study Indication: Cardiomyopathy to evaluate for myocardial ischemia Technique: The patient was brought in for a Lexiscan perfusion study on 06/06/2023. Patient performed low-level exercise and was injected 0.4 mg of Lexiscan intravenously. Within a minute of injection, 25 mCi of sestamibi was given intravenously. Images were obtained using the SPECT gamma camera interlaced with the gating device. Images were obtained in supine position. Resting perfusion study was performed on 06/12/2023. Patient was administered 25 mCi of sestamibi intravenously at rest. Images were then obtained in supine position. Images obtained with and without CT attenuation. Total DLP 176 mGy-cm. Images were processed with the software and compared side to side in short axis, horizontal long axis and vertical long axis views. Findings: The stress perfusion study showed non attenuated images show moderately to severely reduced uptake in the inferior with absent uptake in the distal inferolateral and inferoapical wall of the LV myocardium with mildly reduced uptake in the inferolateral wall of the LV myocardium. Attenuation corrected images appear to be artificially normalized.. The gated study shows reduced LV systolic function with calculated LVEF of 44%. LV cavity is mildly dilated size. The gated study shows reduced basal and mid inferior wall thickening and contraction of segments. Resting study shows non attenuated images show partially improved uptake in the distal inferolateral and inferoapical as well as marginally improved uptake in the basal and mid inferior wall with improved uptake in the inferolateral wall of the LV myocardium.. Gating at rest reveals basal and mid inferior wall motion abnormality with ejection fraction at 51%. The findings are consistent with mild intensity reversible defect of the inferolateral wall with partially reversible defect of the distal inferolateral and inferoapical wall with fixed defect of the basal and mid inferior wall.. CO/NM cardiolite stress test Impression: 1. Myocardial perfusion imaging study shows highly suggestive of ischemia in the inferolateral as well as inferoapical wall with fixed defect in the basal and mid inferior wall which could represent severe ischemia versus nontransmural infarct 2. Gated LVEF is 44% with stress and 51% with rest 3. Transient ischemic dilatation present EKG is nondiagnostic for ischemia
--- NOTE | 2023-06-06 10:04 | CA_ITS ---
Acquisition Time: 2023-06-06 10:33:57 Total Exercise Time: 00:02:00 Test Indications: LBBB, CARDIOMYOPATHY Medications: SEE H Protocol: LEXISCAN Max HR: 102 BPM 76% of Pred: 133 BPM Max BP: 148/068 mmHG Max Work Load: 1.0 METS Pharmacological stress test with Lexiscan injection while sitting still, with 8/10 chets pressure, mild SOB, without arrhythmias, with normotensive response to injection, with nondiagnoisitic EKGs. Aminophylline 75mg IVP given to reverse Lexiscan. Chest pressure resovled. Nuclear images pending. Test reviewed with Dr. Martell. Referred By: Paz Philip Overread By: Catherine Rangel
== END ==
LOC: HO.CARD 10:01
PROVIDERS: PCP Internal Medicine; Visit Provider Nurse Practitioner Family
DX: I42.9 Cardiomyopathy, unspecified (principal); I44.7 Left bundle-branch block, unspecified
CPT/HCPCS: 78452; 93017; A9500; J0280; J2785

== ENCOUNTER → 2023-06-06 10:04 | Outpatient (BNV) | payer OTHER, SELFPAY | PROVIDERS: PCP Internal Medicine; Visit Provider Nurse Practitioner | DX: I42.9 Cardiomyopathy, unspecified (principal) | CPT/HCPCS: 78452; 93016; 93018 ==

== ENCOUNTER 2023-06-20 10:11 | Outpatient (AMB) | payer OTHER, SELFPAY ==
--- NOTE | 2023-06-20 10:14 | MHC.PC.OV ---
Vital Signs 06/20/23 10:16 Height 5 ft 3 in Weight 162 lb 2 oz BMI 28.7 BP 100/62 Blood Pressure Location Lt brachial Position Sitting Intake Visit Reasons: 3 Month F/U Intake Note: Patient is here to follow up on DM, HTN, CKD, GERD. Line Assembly Utility Worker Required: Yes Line Assembly Utility Worker Language: Sprayer Operator Name: Melonie ( Child) Information Interpreted: non-clinical & clinical Superintendent Measurement: Present Accompanied by: Grand Child Allergies Iodinated Contrast Media [IV CONTRAST] Allergy (Unknown, Verified 06/20/23 11:08) UNKNOWN Medication List - Last Reconciled 06/20/23 by Rico Deras MD amlodipine 5 mg PO DAILY aspirin 81 mg PO DAILY atorvastatin 20 mg PO BEDTIME 30 days blood pressure monitor (Blood Pressure Kit) As directed blood sugar diagnostic (Yunnouch Ultra Test strips) test 3 times per day blood-glucose meter (SAVO Ultra2 Meter) test 3 times daily carvedilol 3.125 mg PO BID commode (bedside commode) As directed diaper,brief,adult,disposable As directed dulaglutide (Trulicity) 0.75 mg (0.5 mL) subcut QWEEK epinephrine (EpiPen 2-Mariano) 0.3 mg (0.3 mL) IM Q10M PRN fluticasone propionate 50 mcg/actuation (Allergy Relief (fluticasone)) 2 sprays intranasal DAILY gabapentin 400 mg PO BID insulin glargine U-300 conc (Toujeo SoloStar U-300 Insulin) 20 units (0.0667 mL) subcut BEDTIME 30 days lancets (Yunnouch UltraSoft 2 Lancet) test 3 times per day loratadine (Allergy Relief (loratadine)) 10 mg PO DAILY losartan 50 mg PO DAILY meclizine (Motion Sickness Relief (meclizine)) 25 mg PO DAILY PRN mirabegron ER (Myrbetriq) 50 mg PO DAILY omeprazole 20 mg PO DAILY polyethylene glycol 3350 (Miralax) 17 grams PO DAILY sitagliptin phosphate (Januvia) 100 mg PO DAILY tolterodine ER 4 mg PO DAILY tramadol 50 mg PO BID PRN 30 days Tobacco use date assessed: 06/20/23 Fall risk assessment: No Falls in past year Last assessed Fall Risk: 06/20/23 Dental Screening Dental Screen Date: 06/20/23 Did you have a dental visit in the last 12 months?: No Did you have a dental problem in the last 6 months where you did not have access to dental care?: No Was dental information given to patient?: No HPI 3 Month F/U HPI Details 87-year-old female presents to the office to discuss her chronic medical conditions. Patient's granddaughter is accompanying her on this visit. The granddaughter is speaking on patient's behalf. Patient is in good health and able to function and do her activities of daily living. She ambulates without a walker. Does not check her blood sugars often. Able to take care of her personal hygiene by herself. [facility] Medical History Hyperlipidemia HTN (hypertension) IBS (irritable bowel syndrome) Prolapsed internal hemorrhoids Chronic kidney disease, stage III (moderate) Obesity (BMI 30-39.9) Mixed hyperlipidemia Hypertensive heart disease Left bundle branch block Bladder prolapse Diabetes mellitus GERD (gastroesophageal reflux disease) Surgical History History of bladder repair surgery History of ERCP History of bilateral cataract extraction History of cholecystectomy History of excision of mass History of colonoscopy History of ankle surgery Family History Father No problems noted. Mother No problems noted. Family/Other Lung cancer Esophagus cancer Other Mental health disorder Substance use disorder Social History Household Members: Family Housing: House Do you presently have visiting nurse or other home services: Yes (every 6 months) Alcohol intake: never Patient Tobacco Use Status: Former Tobacco user Quit Date: 10 yrs ago e-Cigarette/Vaping Use: Never Used Second Hand Smoke Exposure: No Advance Directives Date on File: 04/19/23 service: No Current occupational status: disabled Cognitive needs: Yes (cane/walker) Hearing needs: No Vision needs: Yes (glasses) Questionnaire Thrive Questionnaire Date Thrive assessed: 05/08/23 MENDEL-7 AMB Questionnaire MENDEL-7 Date MENDEL - 7 assessed: 05/08/23 Source: Developed by Drs. Vu Harris, Huma Roque, Ronak Nichols and colleagues, with an educational yury from [employer]. Physical exam (Primary Care) Vital Signs: Last Vital Signs BP 100/62 06/20/23 10:16 BMI result Body Mass Index 28.7 Tobacco/Smoking Status: Tobacco use Status Tobacco use date assessed 06/20/23 06/20/23 10:30 Patient Tobacco Use Status Former Tobacco user 06/20/23 10:30 e-Cigarette/Vaping Use Never Used 06/20/23 10:30 Thrive Assessment: Date of Thrive Assessment Date Thrive assessed 05/08/23 06/20/23 10:30 Const General: cooperative and healthy appearing Nutritional Appearance: well nourished Orientation/consciousness: patient oriented x3 Limitations: no limitations HENMT Head: Yes normal to inspection Eyes General: appearance normal, both eyes and all related structures Neck Neck: Yes normal visual inspection Chest Chest palpation & inspection: normal palpation of entire chest wall Resp Effort & Inspection: normal respiratory effort Neuro General: patient oriented x3 Results AMB Hemoglobin A1c AMB Hemoglobin A1c 6.3 % Last Edit by MIKAELA Hoover on 06/20/23 10:30 Results Reviewed Results Reviewed: Laboratory Last Values Hgb A1c (Clinic) 6.3 % (4.0-6.0) H 06/20/23 10:14 Assessment and Plan Assessment & Plan (1) HTN (hypertension): Code(s): I10 - Essential (primary) hypertension Plan: Blood pressure is stable. Extensive medication list reviewed. Amlodipine has been discontinued as patient is already on a beta-hilario and an ARB. Granddaughter understands. (2) Chronic kidney disease, stage III (moderate): Code(s): N18.30 - Chronic kidney disease, stage 3 unspecified Plan: Condition is stable. (3) Diabetes mellitus: Comment: IDDM Code(s): E11.9 - Type 2 diabetes mellitus without complications Qualifiers: Diabetes mellitus type: type 2 Diabetes mellitus terminal gauger supervisor insulin use: with care home use Diabetes mellitus complication status: with other specified complication Qualified Code(s): E11.69 - Type 2 diabetes mellitus with other specified complication; Z79.4 - extermination supervisor (current) use of insulin Plan: A1c is in range. Continue medications at same dosage. Orders: Orders AMB Hemoglobin A1c Today E11.9 - Type 2 diabetes mellitus without complications Coding Level of Care Code Est Pt Level 4 (42333) Diagnoses HTN (hypertension) I10 Chronic kidney disease, stage III (moderate) N18.30 Type 2 diabetes mellitus with other specified complication, with long-term current use of insulin E11.69; Z79.4 Diabetes mellitus type: type 2 Diabetes mellitus terminal gauger supervisor insulin use: with care home use Diabetes mellitus complication status: with other specified complication
[2023-06-20 10:16] VITALS: BP 100/62; BMI 28.7
== END 2023-06-20 12:07 | disposition home or self-care (01) ==
PROVIDERS: PCP Internal Medicine; Visit Provider Internal Medicine
DX: I12.9 Hypertensive chronic kidney disease with stage 1 through stage 4 chronic kidney disease, or unspecified chronic kidney disease (principal); N18.30 Chronic kidney disease, stage 3 unspecified; E11.69 Type 2 diabetes mellitus with other specified complication; Z79.4 Long term (current) use of insulin; E11.22 Type 2 diabetes mellitus with diabetic chronic kidney disease
CPT/HCPCS: 83036; 99214

== ENCOUNTER 2023-07-26 09:30 | Outpatient (AMB) | payer OTHER, SELFPAY ==
[2023-07-26 09:32] VITALS: BP 150/60; PULSE 87; BMI 28.9
--- NOTE | 2023-07-26 09:32 | A.OFFVIS_ITS ---
Vital Signs 07/26/23 09:32 Height 5 ft 3 in Weight 163 lb 2.273 oz BMI 28.9 BP 150/60 H Blood Pressure Location Rt brachial Position Sitting Pulse 87 Pulse Source Pulse Oximeter Intake Visit Reasons: f/u after testing Associate Genetics Professor Required: No Golf Cart Repairer: Golf Cart Repairer Present Allergies Iodinated Contrast Media [IV CONTRAST] Allergy (Unknown, Verified 06/20/23 11:08) UNKNOWN Medication List - Last Reconciled 07/26/23 by YADIRA Palm aspirin 81 mg PO DAILY atorvastatin 20 mg PO BEDTIME 30 days blood pressure monitor (Blood Pressure Kit) As directed blood sugar diagnostic ([employer] Ultra Test strips) test 3 times per day blood-glucose meter ([employer] Ultra2 Meter) test 3 times daily carvedilol 3.125 mg PO BID commode (bedside commode) As directed diaper,brief,adult,disposable As directed dulaglutide (Trulicity) 0.75 mg (0.5 mL) subcut QWEEK epinephrine (EpiPen 2-Mariano) 0.3 mg (0.3 mL) IM Q10M PRN fluticasone propionate 50 mcg/actuation (Allergy Relief (fluticasone)) 2 sprays intranasal DAILY gabapentin 400 mg PO BID insulin glargine U-300 conc (Toujeo SoloStar U-300 Insulin) 20 units (0.0667 mL) subcut BEDTIME 30 days lancets ([employer] UltraSoft 2 Lancet) test 3 times per day loratadine (Allergy Relief (loratadine)) 10 mg PO DAILY losartan 50 mg PO DAILY meclizine (Motion Sickness Relief (meclizine)) 25 mg PO DAILY PRN mirabegron ER (Myrbetriq) 50 mg PO DAILY omeprazole 20 mg PO DAILY sitagliptin phosphate (Januvia) 100 mg PO DAILY tolterodine ER 4 mg PO DAILY tramadol 50 mg PO BID PRN 30 days HPI HPI f/u after testing: Details: Brit is an 87-year-old female past medical history of hypertension, hyperlipidemia, diabetes, obesity, chronic kidney disease, left bundle branch block who was admitted to [facility] last week with left-sided chest discomfort and treated for UTI. Her troponins were elevated which was thought to be related to demand. She underwent an outpatient nuclear stress test and now presents for follow-up. Today she reports she has been feeling generally well since her last visit in April. She denies having the burning in her left chest region which she previously reported. She says her breathing has been comfortable. No PND, orthopnea or edema. No presyncope, syncope, falls. She is mostly sedentary. She is taking all meds as directed. She lives with her son. Daughter is present and assisting with Polish translation at their request. Permit signed. [facility] Medical History Hyperlipidemia HTN (hypertension) IBS (irritable bowel syndrome) Prolapsed internal hemorrhoids Chronic kidney disease, stage III (moderate) Obesity (BMI 30-39.9) Mixed hyperlipidemia Hypertensive heart disease Left bundle branch block Bladder prolapse Diabetes mellitus GERD (gastroesophageal reflux disease) Surgical History History of bladder repair surgery History of ERCP History of bilateral cataract extraction History of cholecystectomy History of excision of mass History of colonoscopy History of ankle surgery Family History Father No problems noted. Mother No problems noted. Family/Other Lung cancer Esophagus cancer Other Mental health disorder Substance use disorder Social History Household Members: Family Housing: House Do you presently have visiting nurse or other home services: Yes (every 6 months) Alcohol intake: never Patient Tobacco Use Status: Former Tobacco user Quit Date: 10 yrs ago e-Cigarette/Vaping Use: Never Used Second Hand Smoke Exposure: No Advance Directives Date on File: 04/19/23 service: No Current occupational status: disabled Cognitive needs: Yes (cane/walker) Hearing needs: No Vision needs: Yes (glasses) Review of Systems Const Details: mostly sedentary All systems reviewed & are unremarkable except as noted in HPI and below Reports fatigue ENT Denies dizziness Card Denies chest pain, Denies chest pain at rest, Denies chest pain with activity, Denies rapid heart rate, Denies pedal edema, Denies edema, Denies leg edema, Denies lightheadedness, Denies palpitations, Denies dyspnea, Denies dyspnea on exertion and Denies orthopnea Resp Denies cough, Denies dyspnea and Denies dyspnea on exertion GI Denies hematochezia and Denies change in stool character Musc Denies abnormal gait, Denies limited range of motion, Denies muscle cramps, Denies muscle weakness, Denies numbness, Denies radiating pain into limb, Denies stiffness and Denies tingling Neuro Denies abnormal gait, Denies dizziness, Denies numbness and Denies tingling Endo Reports fatigue and Denies palpitations Physical Exam Vital Signs: Last Vital Signs Pulse 87 07/26/23 09:32 BP 150/60 H 07/26/23 09:32 BMI result Body Mass Index 28.9 Const Other: Somewhat frail, ambulates slow with cane General: cooperative, healthy appearing, comfortable and no acute distress Orientation/consciousness: patient oriented x3 Neck Neck: Yes normal visual inspection and Yes no JVD Resp Effort & Inspection: normal respiratory effort Auscultation: clear to auscultation bilaterally, no rales, no rhonchi and no wheezes Cardio Jugular venous distension: no JVD Rate: regular rate Rhythm: regular rhythm Heart sounds: S1 normal heart sound present, S2 normal heart sound present, no murmurs and no rubs Neuro General: patient oriented x3 Extrem General: Yes normal to inspection, No no pedal edema and No calf tenderness Psych Appearance: grossly normal Mental Status: mental status grossly normal Speech and movement: Normal speech and movement present Assessment & Plan Assessment & Plan (1) Cardiomyopathy: Code(s): I42.9 - Cardiomyopathy, unspecified Category: Medical Plan: Newer finding of cardiomyopathy. She was recently admitted to [facility] with UTI and troponin levels were elevated to level of secondary NSTEMI which was thought to be related to demand. Echocardiogram done on 04/09/2023 showed EF 35-40%, impaired relaxation, mild aortic stenosis. Prior echo done 11/24/2019 had shown EF 55-60%, mild aortic stenosis. She does have a history of left bundle branch block. She does not have a known history of CAD though she does have multiple cardiac risk factors including hypertension, hyperlipidemia, diabetes, obesity and chronic kidney disease. On last visit she reported an intermittent burning in her left chest region lasting seconds. A pharmacological nuclear stress test was done on 06/12/2023 showing ischemia in the inferior lateral as well as inferior apical wall with fixed defect in the basal to mid inferior wall question severe ischemia versus nontransmural infarct. Today she states she has been feeling well with no recent chest discomfort. She is mostly sedentary and only ambulates very slowly with a cane. Spent time reviewing benefits of cardiac catheterization for further coronary evaluation and intervention if warranted. She is overwhelmed by the thought of this. Discussed with daughter and she will discuss further with family. Other option would be med management. She currently denies concerning symptoms. With her advanced age med management would not be unreasonable. Will have her waylon nue aspirin 81 mg daily. Continue atorvastatin with ideal LDL goal less than 70. Labs done 02/26/2023 showed LDL 90. Does not look like she was on a statin at that time. Recommend recheck of lipid profile. She is on carvedilol and losartan for neurohormonal modulation. Blood pressure is elevated at 1 50/60 today. Will increase carvedilol up to 6.5 mg b.i.d... Her med list no longer includes amlodipine. Signs and symptoms of angina reviewed with her. Emergency care if ever needed for symptoms. Cardiology follow-up in 4-6 weeks, sooner if needed. (2) Left bundle branch block: Comment: Known left bundle-branch block. Prior workup had shown no evidence of myocardial ischemia. Code(s): I44.7 - Left bundle-branch block, unspecified Category: Medical Plan: History of left bundle branch block. May be contributing to her cardiomyopathy (3) Hypertensive heart disease: Comment: Moderate LVH by echocardiogram, September 2019 consistent with hypertensive heart disease. No evidence of heart failure. Code(s): I11.9 - Hypertensive heart disease without heart failure Category: Medical Plan: Last echo showing mildly increased left ventricular wall thickness, EF 35-40%, left atrium is mildly dilated, right atrium is likely dilated. (4) HTN (hypertension): Code(s): I10 - Essential (primary) hypertension Category: Medical Plan: Blood pressure mildly elevated today 150/60. Will increase her carvedilol dose. (5) Abnormal nuclear stress test: Code(s): R94.39 - Abnormal result of other cardiovascular function study Category: Medical Plan: As above. Catheterization offered however she is not willing at this time. Plan Time spent on chart review, documentation, interview and assessment Medications: New carvedilol must administer with a meal/food - Dose increased 6.25 mg PO BID 60 tabs 4RF Discontinued carvedilol must administer with a meal/food Discontinued Reason: Doctor's Order 3.125 mg PO BID 60 tabs 5RF Coding Level of Care Code Est Pt Level 4 (55877) Diagnoses Cardiomyopathy I42.9 Left bundle branch block I44.7 Hypertensive heart disease I11.9 HTN (hypertension) I10 Abnormal nuclear stress test R94.39 Time Spent (min) 30
== END 2023-07-26 10:05 | disposition home or self-care (01) ==
PROVIDERS: PCP Internal Medicine; Visit Provider Nurse Practitioner Family
DX: I42.9 Cardiomyopathy, unspecified (principal); I44.7 Left bundle-branch block, unspecified; I11.9 Hypertensive heart disease without heart failure; I10 Essential (primary) hypertension; R94.39 Abnormal result of other cardiovascular function study
CPT/HCPCS: 99214

== ENCOUNTER → 2023-07-26 09:30 | Outpatient (BNVA) | payer OTHER, SELFPAY | PROVIDERS: PCP Internal Medicine; Visit Provider Nurse Practitioner Family | DX: I42.9 Cardiomyopathy, unspecified (principal); I44.7 Left bundle-branch block, unspecified; I11.9 Hypertensive heart disease without heart failure; R94.39 Abnormal result of other cardiovascular function study; Z79.82 Long term (current) use of aspirin; Z79.899 Other long term (current) drug therapy | CPT/HCPCS: 99212 ==

== ENCOUNTER 2023-09-19 09:49 | Outpatient (AMB) | payer OTHER, SELFPAY ==
--- NOTE | 2023-09-19 10:03 | A.OFFPC_ITS ---
Vital Signs 09/19/23 10:05 Height 5 ft 3 in Weight 162 lb 4 oz BMI 28.7 BP 130/60 Blood Pressure Location Lt brachial Position Sitting Pulse 90 Pulse Source Pulse Oximeter Pulse Oximetry (%) 97 Oxygen Delivery Method Room Air Intake Visit Reasons: 3mth f/u Intake Note: Patient is here to follow up on HTN, DM, CKD, HLD. Candy Spreader Helper Required: Yes Candy Spreader Helper Language: Electrical Appliance Mechanic Name: Melonie (grand daughter) Information Interpreted: non-clinical & clinical Control Engineer: Present Accompanied by: Grand Child Allergies Iodinated Contrast Media [IV CONTRAST] Allergy (Unknown, Verified 09/19/23 10:04) UNKNOWN Tobacco use date assessed: 09/19/23 Fall risk assessment: No Falls in past year Last assessed Fall Risk: 09/19/23 Dental Screening Dental Screen Date: 06/20/23 [facility] Medical History Hyperlipidemia HTN (hypertension) IBS (irritable bowel syndrome) Prolapsed internal hemorrhoids Chronic kidney disease, stage III (moderate) Obesity (BMI 30-39.9) Mixed hyperlipidemia Hypertensive heart disease Left bundle branch block Bladder prolapse Diabetes mellitus GERD (gastroesophageal reflux disease) Surgical History History of bladder repair surgery History of ERCP History of bilateral cataract extraction History of cholecystectomy History of excision of mass History of colonoscopy History of ankle surgery Family History Father No problems noted. Mother No problems noted. Family/Other Lung cancer Esophagus cancer Other Mental health disorder Substance use disorder Social History Household Members: Family Housing: House Do you presently have visiting nurse or other home services: Yes (every 6 months) Alcohol intake: never Patient Tobacco Use Status: Former Tobacco user e-Cigarette/Vaping Use: Never Used Second Hand Smoke Exposure: No Advance Directives Date on File: 04/19/23 service: No Current occupational status: disabled Cognitive needs: Yes (cane/walker) Hearing needs: No Vision needs: Yes (glasses) Questionnaire Thrive Questionnaire Date Thrive assessed: 05/08/23 MENDEL-7 AMB Questionnaire MENDEL-7 Date MENDEL - 7 assessed: 05/08/23 Source: Developed by Drs. Vu Harris, Huma Roque, Ronak Nichols and colleagues, with an educational yuyr from [email or web address]. Physical exam (Primary Care) Vital Signs: Last Vital Signs Pulse 90 09/19/23 10:05 BP 130/60 09/19/23 10:05 Pulse Ox 97 09/19/23 10:05 Oxygen Delivery Method Room Air 09/19/23 10:05 BMI result Body Mass Index 28.7 Tobacco/Smoking Status: Tobacco use Status Tobacco use date assessed 09/19/23 09/19/23 10:05 Patient Tobacco Use Status Former Tobacco user 09/19/23 10:05 e-Cigarette/Vaping Use Never Used 09/19/23 10:05 Thrive Assessment: Date of Thrive Assessment Date Thrive assessed 05/08/23 09/19/23 10:05 Results AMB Hemoglobin A1c AMB Hemoglobin A1c 5.9 % Last Edit by MIKAELA Hoover on 09/19/23 10:20 Results Reviewed Results Reviewed: Laboratory Last Values Hgb A1c (Clinic) 5.9 % (4.0-6.0) 09/19/23 10:05 Assessment and Plan Assessment & Plan Orders: Orders AMB Hemoglobin A1c 09/19/23 E11.69 - Type 2 diabetes mellitus with other specified complication, Z79.4 - senior living (current) use of insulin Medications: Refilled meclizine (Motion Sickness Relief (meclizine)) 25 mg PO DAILY PRN 14 tabs 2RF motion sickness Coding Level of Care Code Left Without Being Seen
[2023-09-19 10:05] VITALS: BP 130/60; PULSE 90; O2SAT 97; BMI 28.7
== END 2023-09-19 11:08 | disposition left against medical advice (07) ==
PROVIDERS: PCP Internal Medicine; Visit Provider Internal Medicine
DX: E11.69 Type 2 diabetes mellitus with other specified complication (principal); Z79.4 Long term (current) use of insulin
CPT/HCPCS: 83036

== ENCOUNTER 2023-10-09 10:22 | Outpatient (AMB) | payer OTHER, SELFPAY ==
--- NOTE | 2023-10-09 10:32 | A.OFFPC_ITS ---
Vital Signs 10/09/23 10:34 Height 5 ft 3 in Weight 160 lb 4 oz BMI 28.4 BP 136/64 Blood Pressure Location Lt brachial Position Sitting Pulse 84 Pulse Source Pulse Oximeter Pulse Oximetry (%) 98 Oxygen Delivery Method Room Air Intake Visit Reasons: Follow Up Intake Note: Patient is here to follow up on DM, HTN, CKD, HLD. Fish Machine Feeder Required: Yes Fish Machine Feeder Language: Civil Engineer Land Development Name: Nabil (Grand daughter) Information Interpreted: non-clinical & clinical Foundry Laborer Coreroom: Present Accompanied by: Grand Child Allergies Iodinated Contrast Media [IV CONTRAST] Allergy (Unknown, Verified 10/09/23 10:34) UNKNOWN Tobacco use date assessed: 10/09/23 Fall risk assessment: No Falls in past year Last assessed Fall Risk: 10/09/23 Dental Screening Dental Screen Date: 06/20/23 HPI Follow Up HPI Details 87-year-old female presents to the [facility] to discuss her medical conditions. She is accompanied by her niece. Complains of dizziness, worse when she is g etting up from a lying position. Patient is able to ambulate on her own at home. She needs help with cleaning and bathing. Does not check her blood sugars at home. [facility] Medical History Hyperlipidemia HTN (hypertension) IBS (irritable bowel syndrome) Prolapsed internal hemorrhoids Chronic kidney disease, stage III (moderate) Obesity (BMI 30-39.9) Mixed hyperlipidemia Hypertensive heart disease Left bundle branch block Bladder prolapse Diabetes mellitus GERD (gastroesophageal reflux disease) Surgical History History of bladder repair surgery History of ERCP History of bilateral cataract extraction History of cholecystectomy History of excision of mass History of colonoscopy History of ankle surgery Family History Father No problems noted. Mother No problems noted. Family/Other Lung cancer Esophagus cancer Other Mental health disorder Substance use disorder Social History Household Members: Family Housing: House Do you presently have visiting nurse or other home services: Yes (every 6 months) Alcohol intake: never Patient Tobacco Use Status: Former Tobacco user e-Cigarette/Vaping Use: Never Used Second Hand Smoke Exposure: No Advance Directives Date on File: 04/19/23 service: No Current occupational status: disabled Cognitive needs: Yes (cane/walker) Hearing needs: No Vision needs: Yes (glasses) Questionnaire Thrive Questionnaire Date Thrive assessed: 05/08/23 MENDEL-7 AMB Questionnaire MENDEL-7 Date MENDEL - 7 assessed: 05/08/23 Source: Developed by Drs. Vu Harris, Huma Roque, Ronak Nichols and colleagues, with an educational yury from [employer]. Physical exam (Primary Care) Vital Signs: Last Vital Signs Pulse 84 10/09/23 10:34 BP 136/64 10/09/23 10:34 Pulse Ox 98 10/09/23 10:34 Oxygen Delivery Method Room Air 10/09/23 10:34 BMI result Body Mass Index 28.4 Tobacco/Smoking Status: Tobacco use Status Tobacco use date assessed 10/09/23 10/09/23 10:37 Patient Tobacco Use Status Former Tobacco user 10/09/23 10:37 e-Cigarette/Vaping Use Never Used 10/09/23 10:37 Thrive Assessment: Date of Thrive Assessment Date Thrive assessed 05/08/23 10/09/23 10:37 Const General: cooperative and healthy appearing Nutritional Appearance: well nourished Orientation/consciousness: patient oriented x3 Limitations: no limitations HENMT Head: Yes normal to inspection Eyes General: appearance normal, both eyes and all related structures Neck Neck: Yes normal visual inspection Chest Chest palpation & inspection: normal palpation of entire chest wall Resp Effort & Inspection: normal respiratory effort Neuro General: patient oriented x3 Assessment and Plan Assessment & Plan (1) Diabetes mellitus: Comment: IDDM Code(s): E11.9 - Type 2 diabetes mellitus without complications Qualifiers: Diabetes mellitus complication status: with other specified complication Diabetes mellitus operations and maintenance manager insulin use: with operations and maintenance manager use Diabetes mellitus type: type 2 Qualified Code(s): E11.69 - Type 2 diabetes mellitus with other specified complication; Z79.4 - tower foreman (current) use of insulin Plan: Januvia has been discontinued. Excellent A1c control. Blood work has been ordered. Continue other medications. Will assess if stopping the medication improves her dizziness. Orders: Orders Basic Metabolic Panel Today E11.69 - Type 2 diabetes mellitus with other specified complication, Z79.4 - tower foreman (current) use of insulin Complete Blood Count no Diff Today - Type 2 diabetes mellitus with other specified complication, Z79.4 - tower foreman (current) use of insulin Lipid Panel Today - Type 2 diabetes mellitus with other specified complication, Z79.4 - tower foreman (current) use of insulin Thyroid Stimulating Hormone Today - Type 2 diabetes mellitus with other specified complication, Z79.4 - tower foreman (current) use of insulin UA and rflx microscopic Today - Type 2 diabetes mellitus with other specified complication, Z79.4 - tower foreman (current) use of insulin Liver Panel Today . - Type 2 diabetes mellitus with other specified complication, Z79.4 - half-way (current) use of insulin Microalbumin, Random (w Creat) Today - Type 2 diabetes mellitus with other specified complication, Z79.4 - tower foreman (current) use of insulin Medications: Discontinued sitagliptin phosphate (Januvia) Discontinued Reason: Doctor's Order 100 mg PO DAILY 90 tabs 4RF Coding Level of Care Code Est Pt Level 4 (60186) Complex EM visit Add On G2211 Diagnoses Type 2 diabetes mellitus with other specified complication, with long-term current use of insulin E11.; Z79.4 Diabetes mellitus complication status: with other specified complication Diabetes mellitus operations and maintenance manager insulin use: with operations and maintenance manager use Diabetes mellitus type: type 2
[2023-10-09 10:34] VITALS: BP 136/64; PULSE 84; O2SAT 98; BMI 28.4
== END 2023-10-09 11:12 | disposition home or self-care (01) ==
PROVIDERS: PCP Internal Medicine; Visit Provider Internal Medicine
DX: E11.69 Type 2 diabetes mellitus with other specified complication (principal); Z79.4 Long term (current) use of insulin
CPT/HCPCS: 99214; G2211

== ENCOUNTER 2023-10-18 12:34 | Outpatient (REF) | payer OTHER, SELFPAY ==
[2023-10-18 13:21] LABS: Hematocrit 31.4 % (37.0-47.0); Hemoglobin 10.1 g/dl (12.0-16.0); Mean Corpuscular HGB Conc 32.2 g/dl (31.0-35.0); Mean Corpuscular Hemoglobin 29.6 pg (27.0-33.0); Mean Corpuscular Volume 92.1 fL (80.0-98.0); Mean Platelet Volume 10.4 fL (9.4-12.3); Platelet Count 216 X10*3/uL (160-400); Red Blood Count 3.41 X10*6/uL (4.20-5.50); Red Cell Distribution Width 12.6 % (11.0-16.0); White Blood Count 4.9 X10*3/uL (4.8-10.8)
[2023-10-18 14:20] LABS: Appearance Urine Cloudy; Color Urine Straw; Glucose Urine UA Negative (Negative); Leukocyte Esterase Urine Moderate (2+) (Negative); Nitrite Urine Negative (Negative); PH 6.5 (5.0-9.0); Specific Gravity - Urine <= 1.005 (1.005-1.025); UMIC TRIGGER UA YES; Urine Blood Trace (Negative); Urine Ketones Negative (Negative); Urine Protein Negative (Neg-Trace)
[2023-10-18 14:26] LABS: Bacteria Urine 4+ (None Seen); Hyaline Casts Urine 0-2 /LPF (0-2); RBC Urine 0-2 /HPF (0-2); WBC Urine >50 /HPF (0-5)
[2023-10-18 16:30] LABS: Creatinine Urine 46.12 mg/dL; Microalbum/Creatinine Ratio Ur 230.2 ug/mg cr (<30); Microalbumin Urine 106.2 mg/L
[2023-10-18 20:44] LABS: Alanine Aminotransferase 14 U/L (0-31); Albumin Level 4.1 g/dL (3.5-5.0); Alkaline Phosphatase 94 U/L (39-117); Anion Gap 15 (12-20); Aspartate Amino Transferase 22 U/L (5-31); Bilirubin Direct 0.1 mg/dL (0.0-0.5); Bilirubin Total 0.4 mg/dL (0.0-1.0); Blood Urea Nitrogen 14 mg/dL (9-16); Calcium 9.4 mg/dL (8.4-10.2); Carbon Dioxide 24 mmol/L (22-29); Chloride 108 mmol/L (96-108); Cholesterol 104 mg/dL (<200); Estimated Glomerular Filt Rate > 60; Glucose Random 110 mg/dL (60-115); HDL Cholesterol 30 mg/dL (>40); LDL Cholesterol Calculated 41 mg/dL (<100); Sodium 142 mmol/L (135-145); Thyroid Stimulating Hormone 1.14 uIU/mL (0.32-4.0); Total Protein 7.2 g/dL (6.5-8.0); Triglycerides 167 mg/dL (<150)
== END 2023-10-18 12:35 | disposition home or self-care (01) ==
LOC: HO.LAB 12:34
PROVIDERS: PCP Internal Medicine; Visit Provider Internal Medicine
DX: E11.69 Type 2 diabetes mellitus with other specified complication (principal); Z79.4 Long term (current) use of insulin
CPT/HCPCS: 36415; 80048; 80061; 80076; 81001; 82043; 82570; 84443; 85027

== ENCOUNTER 2023-11-06 11:05 | Outpatient (REF) | payer OTHER, SELFPAY ==
[2023-11-06 11:44] LABS: MANUAL DIFF FLAG NO
[2023-11-06 12:31] LABS: Basophils Percent Auto 0.4 % (0-2); Eosinophils Absolute Auto 0.1 X10*3/uL (0.0-0.4); Eosinophils Percent Auto 2.7 % (0-4); Hematocrit 29.3 % (37.0-47.0); Hemoglobin 9.5 g/dl (12.0-16.0); Imm Gran Abs Auto 0.01 X10*3/uL (0.00-0.03); Imm Gran Pct Auto 0.2 % (0.0-0.4); Lymphocytes Absolute Auto 1.4 X10*3/uL (1.2-4.9); Lymphocytes Percent Auto 28.9 % (20-40); Mean Corpuscular HGB Conc 32.4 g/dl (31.0-35.0); Mean Corpuscular Hemoglobin 29.6 pg (27.0-33.0); Mean Corpuscular Volume 91.3 fL (80.0-98.0); Mean Platelet Volume 10.7 fL (9.4-12.3); Monocytes Absolute Auto 0.4 X10*3/uL (0.1-1.2); Monocytes Percent Auto 8.4 % (2-11); Neutrophils Absolute Auto 2.8 x10*3/uL (2.0-8.3); Neutrophils Percent Auto 59.4 % (45-73); Platelet Count 212 X10*3/uL (160-400); Red Blood Count 3.21 X10*6/uL (4.20-5.50); Red Cell Distribution Width 12.8 % (11.0-16.0); White Blood Count 4.7 X10*3/uL (4.8-10.8)
[2023-11-06 12:59] LABS: Alanine Aminotransferase 8 U/L (0-31); Albumin Level 4.1 g/dL (3.5-5.0); Alkaline Phosphatase 89 U/L (39-117); Aspartate Amino Transferase 17 U/L (5-31); Bilirubin Direct 0.1 mg/dL (0.0-0.5); Bilirubin Total 0.3 mg/dL (0.0-1.0); Lipase 20 U/L (8-78); Total Protein 7.3 g/dL (6.5-8.0)
== END 2023-11-06 11:06 | disposition home or self-care (01) ==
LOC: HO.LAB 11:05
PROVIDERS: PCP Internal Medicine; Visit Provider Internal Medicine Gastroenterology
DX: R19.7 Diarrhea, unspecified (principal); R10.84 Generalized abdominal pain
CPT/HCPCS: 36415; 80076; 83690; 85025

== ENCOUNTER 2023-11-25 09:36 | Outpatient (AMB) | payer OTHER, SELFPAY ==
--- NOTE | 2023-11-25 09:40 | MHC.OFFVIS ---
Vital Signs 11/25/23 09:41 Height 5 ft 3 in Weight 160 lb 14.999 oz BMI 28.5 BP 144/62 H Blood Pressure Location Lt brachial Position Sitting Pulse 75 Pulse Source Pulse Oximeter Intake Visit Reasons: r/s 09/03/23 4 wks followup Underground Utility Locator Required: Yes Underground Utility Locator Language: Secretarial Teacher Name: cheryl toro Materials Planning Manager: Materials Planning Manager Present Accompanied by: Grand Child Allergies Iodinated Contrast Media [IV CONTRAST] Allergy (Unknown, Verified 11/25/23 09:45) UNKNOWN Medication List - Last Reconciled 11/25/23 by YADIRA Palm aspirin 81 mg PO DAILY 90 days atorvastatin 20 mg PO BEDTIME 30 days blood pressure monitor (Blood Pressure Kit) As directed blood sugar diagnostic (InVasc Therapeuticsuch Ultra Test strips) test 3 times per day blood-glucose meter (jellyfish Ultra2 Meter) test 3 times daily [body wipes As directed] carvedilol 6.25 mg PO BID commode (bedside commode) As directed diaper,brief,adult,disposable As directed dulaglutide (Trulicity) 0.75 mg (0.5 mL) subcut QWEEK epinephrine (EpiPen 2-Mariano) 0.3 mg (0.3 mL) IM Q10M PRN fluticasone propionate 50 mcg/actuation (Allergy Relief (fluticasone)) 2 sprays intranasal DAILY gabapentin 400 mg PO BID insulin glargine U-300 conc (Toujeo SoloStar U-300 Insulin) 20 units (0.0667 mL) subcut BEDTIME 30 days lancets (InVasc Therapeuticsuch UltraSoft 2 Lancet) test 3 times per day losartan 50 mg PO DAILY meclizine (Motion Sickness Relief (meclizine)) 25 mg PO DAILY PRN mirabegron ER (Myrbetriq) 50 mg PO DAILY omeprazole 20 mg PO DAILY tolterodine ER 4 mg PO DAILY tramadol 50 mg PO BID PRN 30 days HPI HPI r/s 09/03/23 4 wks followup: Details: Brit is an 88-year-old female past medical history of hypertension, hyperlipidemia, diabetes, obesity, chronic kidney disease, left bundle branch block who was admitted to [facility] April 2023 with left-sided chest discomfort and treated for UTI. Her troponins were elevated which was thought to be related to demand. Her outpatient nuclear stress test was abnormal, cardiac catheterization discussed and she was reluctant. She now presents for follow-up. Today she reports she has been feeling well since her last visit in June. She denies any chest discomfort at rest or during activity. She tells me her breathing is normal. No PND, orthopnea or edema. No lightheadedness, presyncope, syncope, falls. Ambulates with a cane. She is mostly sedentary. She is taking all meds as directed however daughter states she has been taking the carvedilol only once daily. They will make this correction to her med management. Patient does not want to pursue invasive cardiac testing. She lives with her son. Daughter is present and assisting with Portuguese translation at their request. [facility] Medical History Diabetic nephropathy with proteinuria Hyperlipidemia HTN (hypertension) IBS (irritable bowel syndrome) Prolapsed internal hemorrhoids Chronic kidney disease, stage III (moderate) Obesity (BMI 30-39.9) Mixed hyperlipidemia Hypertensive heart disease Left bundle branch block Bladder prolapse Diabetes mellitus GERD (gastroesophageal reflux disease) Surgical History History of bladder repair surgery History of ERCP History of bilateral cataract extraction History of cholecystectomy History of excision of mass History of colonoscopy History of ankle surgery Family History Father No problems noted. Mother No problems noted. Family/Other Lung cancer Esophagus cancer Other Mental health disorder Substance use disorder Social History Household Members: Family Housing: House Do you presently have visiting nurse or other home services: Yes (every 6 months) Alcohol intake: never Patient Tobacco Use Status: Former Tobacco user e-Cigarette/Vaping Use: Never Used Second Hand Smoke Exposure: No Advance Directives Date on File: 04/19/23 service: No Current occupational status: disabled Cognitive needs: Yes (cane/walker) Hearing needs: No Vision needs: Yes (glasses) Review of Systems Const Details: ambulates with cane. All systems reviewed & are unremarkable except as noted in HPI and below ENT Denies dizziness Card Denies chest pain, Denies chest pain at rest, Denies chest pain with activity, Denies rapid heart rate, Denies pedal edema, Denies edema, Denies leg edema, Denies lightheadedness, Denies palpitations, Denies dyspnea, Denies dyspnea on exertion and Denies orthopnea Resp Denies cough, Denies dyspnea and Denies dyspnea on exertion GI Denies hematochezia and Denies change in stool character Musc Denies limited range of motion, Denies muscle cramps, Denies muscle weakness, Denies numbness, Denies radiating pain into limb, Denies stiffness and Denies tingling Neuro Denies dizziness, Denies numbness and Denies tingling Endo Denies palpitations Physical Exam Vital Signs: Last Vital Signs Pulse 75 11/25/23 09:41 BP 144/62 H 11/25/23 09:41 BMI result Body Mass Index 28.5 Const Other: Somewhat frail, ambulates slow with cane General: cooperative, healthy appearing, comfortable and no acute distress Orientation/consciousness: patient oriented x3 Neck Neck: Yes normal visual inspection and Yes no JVD Resp Effort & Inspection: normal respiratory effort Auscultation: clear to auscultation bilaterally, no rales, no rhonchi and no wheezes Cardio Jugular venous distension: no JVD Rate: regular rate Rhythm: regular rhythm Heart sounds: S1 normal heart sound present, S2 normal heart sound present, no murmurs and no rubs Neuro General: patient oriented x3 Extrem General: Yes normal to inspection, No no pedal edema and No calf tenderness Psych Appearance: grossly normal Mental Status: mental status grossly normal Speech and movement: Normal speech and movement present Assessment & Plan Assessment & Plan (1) Cardiomyopathy: Code(s): I42.9 - Cardiomyopathy, unspecified Category: Medical Plan: Newer finding of cardiomyopathy at time of [facility] admit for UTI and secondary NSTEMI April 2023. Echocardiogram done on 04/09/2023 showed EF 35-40%, impaired relaxation, mild aortic stenosis. Prior echo done 11/24/2019 had shown EF 55-60%, mild aortic stenosis. She does have a history of chronic left bundle branch block which can contribute to her cardiomyopathy. She does not have a known history of CAD though she does have multiple cardiac risk factors including hypertension, hyperlipidemia, diabetes, obesity and chronic kidney disease. A pharmacological nuclear stress test was done on 06/12/2023 showing ischemia in the inferior lateral as well as inferior apical wall with fixed defect in the basal to mid inferior wall question severe ischemia versus nontransmural infarct. On last visit cardiac catheterization was discussed and she was reluctant. Today she reports that she has no chest discomfort at rest or with activity. She denies shortness of breath and admits to being mostly sedentary. Daughter present and tells me patient wants only med management. She does not want to pursue invasive testing such as cardiac catheterization. With her advanced age med management is reasonable. Informed that she likely has some degree of coronary artery disease and that she does have moderate cardiomyopathy. Signs and symptoms of angina and heart failure reviewed with her. Will have her continue aspirin 81 mg daily. Continue atorvastatin with ideal LDL goal less than 70. Labs done 10/18/2023 shows LDL 41. She is on carvedilol and losartan for neurohormonal modulation. She has been taking the carvedilol only once daily and will now start with b.i.d. dosing. Blood pressure is slightly elevated at 144/62. The increase in carvedilol should help to further lower her blood pressure. Emergency care if ever needed for symptoms. Will plan for a recheck of echocardiogram prior to her next visit. Cardiology follow-up in 4 months, sooner if needed. (2) Left bundle branch block: Comment: Known left bundle-branch block. Prior workup had shown no evidence of myocardial ischemia. Code(s): I44.7 - Left bundle-branch block, unspecified Category: Medical Plan: History of left bundle branch block. May be contributing to her cardiomyopathy (3) Hypertensive heart disease: Comment: Moderate LVH by echocardiogram, September 2019 consistent with hypertensive heart disease. No evidence of heart failure. Code(s): I11.9 - Hypertensive heart disease without heart failure Category: Medical Plan: Last echo showing mildly increased left ventricular wall thickness, EF 35-40%, left atrium is mildly dilated, right atrium is likely dilated. Blood pressure initially 144/62, recheck done by me 140/62. She has been taking carvedilol only once daily. Her dosing will be corrected to b.i.d.. She continues on losartan. [place] blood pressure goal less than 130/85. (4) HTN (hypertension): Code(s): I10 - Essential (primary) hypertension Category: Medical Plan: As above (5) Abnormal nuclear stress test: Code(s): R94.39 - Abnormal result of other cardiovascular function study Category: Medical Plan: As above. Catheterization offered however declines. Opts for medical management Plan Time spent on chart review, documentation, interview and assessment Orders: Orders CA echo transthoracic complete 3 Months I42.9 - Cardiomyopathy, unspecified Coding Level of Care Code Est Pt Level 4 (44924) Diagnoses Cardiomyopathy I42.9 Left bundle branch block I44.7 Hypertensive heart disease I11.9 HTN (hypertension) I10 Abnormal nuclear stress test R94.39 Time Spent (min) 30
[2023-11-25 09:41] VITALS: BP 144/62; PULSE 75; BMI 28.5
== END 2023-11-25 10:07 | disposition home or self-care (01) ==
PROVIDERS: PCP Internal Medicine; Visit Provider Nurse Practitioner Family
DX: I42.9 Cardiomyopathy, unspecified (principal); I44.7 Left bundle-branch block, unspecified; I11.9 Hypertensive heart disease without heart failure; I10 Essential (primary) hypertension; R94.39 Abnormal result of other cardiovascular function study
CPT/HCPCS: 99214

== ENCOUNTER → 2023-11-25 09:36 | Outpatient (BNVA) | payer OTHER, SELFPAY | PROVIDERS: PCP Internal Medicine; Visit Provider Nurse Practitioner Family | DX: I42.9 Cardiomyopathy, unspecified (principal); I44.7 Left bundle-branch block, unspecified; I11.9 Hypertensive heart disease without heart failure; R94.39 Abnormal result of other cardiovascular function study | CPT/HCPCS: 99212 ==

== ENCOUNTER 2024-02-12 09:19 | Outpatient (AMB) | payer OTHER, SELFPAY ==
--- NOTE | 2024-02-12 09:26 | A.OFFPC_ITS ---
Vital Signs 02/12/24 09:27 Height 5 ft 3 in Weight 153 lb 2 oz BMI 27.1 BP 130/86 Blood Pressure Location Lt brachial Position Sitting Intake Visit Reasons: 3mth f/u Intake Note: Patient is here to follow up on DM, CKD, HTN, HLD. Meter Tester Primary Required: Yes Meter Tester Primary Language: Publicity Manager Name: Melonie (Grand daughter) Information Interpreted: non-clinical & clinical Transit Planning Director: Present Accompanied by: Grand Child Allergies Iodinated Contrast Media [IV CONTRAST] Allergy (Unknown, Verified 02/12/24 10:20) UNKNOWN Medication List - Last Reconciled 02/12/24 by Rico Deras MD aspirin 81 mg PO DAILY 90 days atorvastatin 20 mg PO BEDTIME 30 days blood pressure monitor (Blood Pressure Kit) As directed blood sugar diagnostic (ComputeNextuch Ultra Test strips) test 3 times per day blood-glucose meter (BuzzVote Ultra2 Meter) test 3 times daily [body wipes As directed] carvedilol 6.25 mg PO BID commode (bedside commode) As directed diaper,brief,adult,disposable As directed [Disposable bed pads As directed] [Disposable tiesha-pads As directed] dulaglutide (Trulicity) 0.75 mg (0.5 mL) subcut QWEEK epinephrine (EpiPen 2-Mariano) 0.3 mg (0.3 mL) IM Q10M PRN fluticasone propionate 50 mcg/actuation (Allergy Relief (fluticasone)) 2 sprays intranasal DAILY gabapentin 400 mg PO BID insulin glargine U-300 conc (Toujeo SoloStar U-300 Insulin) 20 units (0.0667 mL) subcut BEDTIME 30 days lancets (ConjecturTouch UltraSoft 2 Lancet) test 3 times per day losartan 50 mg PO DAILY meclizine (Motion Sickness Relief (meclizine)) 25 mg PO DAILY PRN mirabegron ER (Myrbetriq) 50 mg PO DAILY omeprazole 20 mg PO DAILY [Raised toilet seat with arms As directed] tolterodine ER 4 mg PO DAILY tramadol 50 mg PO BID PRN 30 days Tobacco use date assessed: 02/12/24 Fall risk assessment: No Falls in past year Last assessed Fall Risk: 02/12/24 Dental Screening Dental Screen Date: 06/20/23 HPI 3mth f/u HPI Details 88-year-old female the office to discuss her chronic medical conditions. She is accompanied by a female labor mediator who is translating for the patient. Patient is reporting symptoms of fatigue and weakness. She has been having loose bowel that makes her apprehensive to eat. Blood sugars have been in range. Feeling unsteady on her feet at times. No symptoms of burning urination. No nausea or vomiting. Current symptoms present for the past few days. Patient lives with her son and prefers to lead a quiet sedentary lifestyle. She needs assistance with her activities of daily living and personal hygiene. [facility] Medical History Diabetic nephropathy with proteinuria Hyperlipidemia HTN (hypertension) IBS (irritable bowel syndrome) Prolapsed internal hemorrhoids Chronic kidney disease, stage III (moderate) Obesity (BMI 30-39.9) Mixed hyperlipidemia Hypertensive heart disease Left bundle branch block Bladder prolapse Diabetes mellitus GERD (gastroesophageal reflux disease) Surgical History History of bladder repair surgery History of ERCP History of bilateral cataract extraction History of cholecystectomy History of excision of mass History of colonoscopy History of ankle surgery Family History Father No problems noted. Mother No problems noted. Family/Other Lung cancer Esophagus cancer Other Mental health disorder Substance use disorder Social History Household Members: Family Housing: House Do you presently have visiting nurse or other home services: Yes (every 6 months) Alcohol intake: never Patient Tobacco Use Status: Former Tobacco user e-Cigarette/Vaping Use: Never Used Second Hand Smoke Exposure: No Advance Directives Date on File: 04/19/23 service: No Current occupational status: disabled Cognitive needs: Yes (cane/walker) Hearing needs: No Vision needs: Yes (glasses) Questionnaire Thrive Questionnaire Date Thrive assessed: 05/08/23 MENDEL-7 AMB Questionnaire MENDEL-7 Date MENDEL - 7 assessed: 05/08/23 Source: Developed by Drs. Vu Harris, Huma Roque, Ronak Nichols and colleagues, with an educational yury from [employer]. Physical exam (Primary Care) Vital Signs: Last Vital Signs BP 130/86 02/12/24 09:27 BMI result Body Mass Index 27.1 Tobacco/Smoking Status: Tobacco use Status Tobacco use date assessed 02/12/24 02/12/24 09:36 Patient Tobacco Use Status Former Tobacco user 02/12/24 09:36 e-Cigarette/Vaping Use Never Used 02/12/24 09:36 Thrive Assessment: Date of Thrive Assessment Date Thrive assessed 05/08/23 02/12/24 09:36 Const General: cooperative and healthy appearing Nutritional Appearance: well nourished Orientation/consciousness: patient oriented x3 Limitations: no limitations HENMT Head: Yes normal to inspection Eyes General: appearance normal, both eyes and all related structures Neck Neck: Yes normal visual inspection Chest Chest palpation & inspection: normal palpation of entire chest wall Resp Effort & Inspection: normal respiratory effort Neuro General: patient oriented x3 Results AMB Hemoglobin A1c AMB Hemoglobin A1c 6.2 % Last Edit by MIKAELA Hoover on 02/12/24 09:41 Results Reviewed Results Reviewed: Laboratory Last Values Hgb A1c (Clinic) 6.2 % (4.0-6.0) H 02/12/24 09:25 Coding Level of Care Code Est Pt Level 4 (02053) Complex EM visit Add On G2211 Diagnoses Weakness R53.1 Assessment & Plan Assessment & Plan (1) Weakness: Code(s): R53.1 - Weakness Plan: A1c is in range. Blood work has been ordered. Insulin dosage has been reduced by 10 units. Patient has been taking [id number] Imodium for diarrhea. Encouraged her to keep her fluid intake adequate. Orders: Orders AMB Hemoglobin A1c Today E11.69 - Type 2 diabetes mellitus with other specified complication, Z79.4 - alf (current) use of insulin
[2024-02-12 09:27] VITALS: BP 130/86; BMI 27.1
== END 2024-02-12 10:17 | disposition home or self-care (01) ==
PROVIDERS: PCP Internal Medicine; Visit Provider Internal Medicine
DX: E11.69 Type 2 diabetes mellitus with other specified complication (principal); Z79.4 Long term (current) use of insulin; R53.1 Weakness

== ENCOUNTER → 2024-02-12 09:19 | Outpatient (BNVA) | payer OTHER, SELFPAY | PROVIDERS: PCP Internal Medicine; Visit Provider Internal Medicine | DX: R53.1 Weakness (principal); E11.69 Type 2 diabetes mellitus with other specified complication; Z79.4 Long term (current) use of insulin | CPT/HCPCS: 83036; 99212 ==

== ENCOUNTER → 2024-02-19 10:51 | Outpatient (REF) | payer OTHER, SELFPAY ==
--- NOTE | 2024-02-19 10:54 | CA_ITS ---
Transthoracic Echocardiogram Patient (Last, First, Middle): Brit Goins, Gender: Female Date of : 1935 Age: 88 Procedure Date: 02/19/2024 Procedure Type: Transthoracic Echocardiogram Location: OP Height: 160.02 cm Weight: 69.4 kg BSA: 1.73 m2 Heart Rate: 88 bpm BP: 130 / 82 mmHg Systems Security Consultant: LETA Referring MD: Paz Philip NP-Franky Seed Cleaner: Fredo Gunn MD Symptoms: I42.9 - Cardiomyopathy, unspecified Study Quality: Adequate ECG Rhythm: Sinus Conclusions: - 1. Moderately reduced LV ejection fraction of 35-40% with impaired relaxation filling pattern 2. Mildly dilated left atrium 3. Early mild aortic stenosis 4. Normal RV systolic pressure Findings Left Ventricle Normal left ventricular cavity size. There is mildly increased left ventricular wall thickness. The left ventricular systolic function is moderately decreased. The visually estimated ejection fraction is between 35 40%. There is paradoxical septal motion consistent with a left bundle branch block. Diastolic function is indeterminate on the basis of available data. Right Ventricle Normal right ventricular cavity size and systolic function. Atria The left atrium is mildly dilated. There is no evidence of interatrial shunt. The right atrium is normal in size. Aortic Valve There is mild calcification of the aortic valve. There is mild thickening of the aortic valve. There is mild aortic valve stenosis. The peak aortic velocity is 1.41 m/s with a calculated peak gradient of 8 mmHg. There is no aortic valve regurgitation. Mitral Valve There is mild anterior and posterior mitral leaflet thickening. There is moderate mitral annular calcification. There is trace mitral valve regurgitation. There is no mitral valve stenosis. Pulmonic Valve The pulmonic valve is likely normal. Tricuspid Valve Normal tricuspid valve structure. There is mild tricuspid valve regurgitation. The right ventricular systolic pressure is normal. The right ventricular systolic pressure is 25 mmHg. Normal right atrial pressure. There is no evidence of pulmonary hypertension. Great Vessels All visible segments of the aorta are normal in size. The pulmonary artery was not well visualized. There is no dilatation of the ascending aorta measuring 3.10 cm. Venous The inferior vena cava is normal in size and collapses greater than 50% with inspiration. Pericardium/Pleural There is no evidence of pericardial effusion. Prior Study Comparison No significant change compared to prior study dated: 04/09/2023. Measurements 2D Linear Measurements IVSd: 1.26 0.6-0.9/0.6-1.0 cm LVIDd: 4.90 3.9-5.3/4.2-5.9 cm LVIDd Index: 2.83 2.4-3.2/2.2-3.1 cm/m2 LVIDs: 3.66 2.0-3.6 cm LVPWd: 1.12 0.7-1.1 cm LA Diam: 4.50 2.7-3.8/3.0-4.0 cm LAIDs Index: 2.60 1.5-2.3 cm/m2 LV Mass: 278.91 67-162/88-224 g LV Mass Index: 161.22 43-95/49-115 g/m2 LVOT Diam: 2.10 3.0+(-)1.3 cm 2D Systolic Function EF 4C: 44.20 >55% EF 2C: 35.50 >55% EF BiP: 38.20 >55% Mitral Valve MV VTI: 0.24 MV Pk Quinn: 1.63 MV Mn Quinn: 0.97 MV Pk Grad: 11.00 MV Mn Grad: 5.00 MVA Continuity: 2.32 Aortic Valve AoV Pk Quinn: 1.41 AoV Pk Grad: 8.00 FRANCESCA: 1.93 LVOT LVOT Pk Quinn: 0.81 LVOT Mn Quinn: 0.52 LVOT VTI: 0.16 LVOT Pk Grad: 3.00 LVOT Mn Grad: 1.00 LVOT Diam: 2.10 LVOT Area: 3.46 Right Ventricle TAPSE (mm): 22.60 TVS' Quinn: 15.30 Tricuspid Valve TR Pk Quinn: 2.33 TR Pk Grad: 22.00 RA Press: 3.00 RVSP: 25.00 Great Vessels Aorta Sinus of Valsalva: 2.70 2.0-3.5 cm Ao Asc: 3.10 2.1-3.4 cm Pulmonary Valve PV Pk Quinn: 0.98 Peak PV Grad: 4.00 Updated in Other Vendor System with Status of Final Fredo Gunn MD electronically signed on 02/20/2024 5:09:34 PM with status of Final
== END ==
LOC: HO.CARD 10:51
PROVIDERS: PCP Internal Medicine; Visit Provider Nurse Practitioner Family
DX: I42.9 Cardiomyopathy, unspecified (principal)
CPT/HCPCS: 93306

== ENCOUNTER → 2024-02-19 10:54 | Outpatient (BNV) | payer OTHER, SELFPAY | PROVIDERS: PCP Internal Medicine; Visit Provider Internal Medicine Cardiovascular Disease | DX: I35.0 Nonrheumatic aortic (valve) stenosis (principal); I36.1 Nonrheumatic tricuspid (valve) insufficiency | CPT/HCPCS: 93306 ==

== ENCOUNTER 2024-03-17 11:02 | Outpatient (REF) | payer OTHER, SELFPAY ==
--- OUTSIDE RECORDS SUMMARY | 2024-03-17 11:24 | XMS_ITS ---
Demographics Address [address] [place] [address] Mobile Preferred Language es Marital Status Unknown Moravian Affiliation Unknown Race or A laska Inaja Additional Race(s) Nelly Ethnic Group or Author Organization [facility] Address [address] [place] [address] Care Team Providers Care Reed Maker Name Role Phone SANTIAGO NOVAK Primary Care Provider Derik Powell Jr Unavailable [phone] ALLERGIES Allergen (clinical drug ingredient) Drug/Non Drug Allergy documented on EMR Reaction Allergy Type Onset Date Status contrast dye (uncoded) Unknown Allergy Active REASON FOR VISIT Patient presents today for IBS,gerd MEDICATIONS Medication SIG (Take, Route, Frequency, Duration) Notes Start Date End Date Status Atorvastatin Calcium 20 MG Oral for 30 Active Tolterodine Tartrate ER 4 MG Oral for 30 Active Aspirin 81 MG 1 tablet Orally Once a day for 30 day(s) 10/23/2023 Active Comfort Touch Plus Lancets 30G - for 30 Active Carvedilol 6.25 MG Oral for 30 Active Meclizine HCl 25 MG Orally Active Creon 22156-91178 UNIT Orally Active MiraLax (colon prep) 17 GM/SCOOP mixed with Gatorade or Crystal Light Orally begin at 5:00 p.m. the day before the procedure for 1 day 12/26/2022 Active Detrol LA 2 MG 1 capsule Orally Onc e a day for 30 day(s) 12/26/2022 Active Talpa Choice Comfort EZ 33G X 4 MM for 30 Active Toujeo SoloStar 300 UNIT/ML Subcutaneous Active traMADol HCl 50 MG Orally A ctive Gabapentin 400 MG Orally Ac tive Trulicity 0.75 MG/0.5ML Subcutaneous Active Lisinopril 30 MG Orally Act marilee Omeprazole 20 MG Orally Act marilee Acetaminophen Extra Strength 500 MG Orally Active SOCIAL HISTORY Tobacco Use: Social History Observation Description Date Details (start date - stop date) Never Smoker NA - NA Sex Assigned At : Social History Observation Description Sex Assigned At Unknown Tobacco Use/Smoking Question Answer Notes Patient is a nonsmoker Alcohol Screen Question Answer Notes Did you have a drink containing alcohol in the p ast year? No Points 0 Interpretation Negative VITAL SIGNS BMI 29.23 kg/m2 10/23/2023 Blood pressure systolic 000 mm Hg 10/23/19 Blood pressure diastolic 00 mm Hg 024 Height 63 in 10/23/2023 Temperature 97.7 degrees Fahrenheit 10/23/19 Weight 165 lbs 10/23/2023 Encounters Encounter Location Date Provider Diagnosis [facility] [address] [place] [address] 10/23/2023 Derik Bob Jr Diarrhea, unspecified type R19.7 and Irritable bowel syndrome with diarrhea K58.0 ASSESSMENTS Encounter Date Diagnosis Assessment Notes Treatment Notes Treatment Clinical Notes 10/23/2023 Diarrhea, unspecified type (ICD-10 - R19.7) 10/23/2023 Irritable bowel syndrome with diarrhea (ICD-10 - K58.0) PLAN OF TREATMENT Pending Test Test Name Order Date LIVER PROFILE 10/23/2023 CRP 10/23/2023 CBC w/o DIFF 10/23/2023 SED RATE (ESR) 10/23/2023 STOOL WBC 10/23/2023 IMMUNOGLOBULINS (IgG IgA IgM) 10/23/2023 CELIAC DISEASE ANTIBODY PANEL 10/23/2023 OVA & PARASITES (O&P) 10/23/2023 PANCREATIC ELASTASE 10/23/2023 FECAL FAT QUAL 10/23/2023 TSH REFLEX FREE T4 10/23/2023 GI PANEL 10/23/2023 Next Appt Details Follow Up: 1 Year, Reason: Provider Name:Derik wynn Jr, 10/21/2024 10:20:00 AM, [address], [address], [place], [address],
--- OUTSIDE RECORDS SUMMARY | 2024-03-17 11:24 | XMS_ITS ---
Author Organization [facility] Address [address] [place] [id number] Care Team Providers Care Spice Room Worker Name Role Phone SANTIAGO NOVAK Primary Care Provider Tiffanie Bob Jr, Derik Tamayo [phone] PROBLEMS Problem Type ICD Code Onset Dates Problem Status W/U Status Risk SNOMED Code Notes Problem Diarrhea, unspecified type (R19.7) Active confirmed [id number] Encounters Encounter Location Date Provider Diagnosis [facility] [address] [place] [address] 10/28/2023 Derik Bob Jr Diarrhea, unspecified type R19.7 and Generalized abdominal pain R10.84 ASSESSMENTS Encounter Date Diagnosis Assessment Notes Treatment Notes Treatment Clinical Notes 10/28/2023 Diarrhea, unspecified type (ICD-10 - R19.7) 10/28/2023 Generalized abdominal pain (ICD-10 - R10.84) PLAN OF TREATMENT Pending Test Test Name Order Date LIVER PROFILE 10/28/2023 STOOL WBC 10/28/2023 OVA & PARASITES (O&P) 10/28/2023 CBC & MANUAL DIFFERENTIAL 10/28/2023 Lipase 10/28/2023 GI PANEL 10/28/2023 Next Appt Details Provider Name:Derik wynn Jr, 10/21/2024 10:20:00 AM, [address], [address], [place], [address],
--- OUTSIDE RECORDS SUMMARY | 2024-03-17 11:25 | XMS_ITS | Patient Health Record ---
Author Organization [facility] Address [address] [place] [address] Care Team Providers Care Prisoner Classification Interviewer Name Role Phone SANTIAGO NOVAK Primary Care Provider Derki Powell Jr Unavailable [phone] ALLERGIES Allergen (clinical drug ingredient) Drug/Non Drug Allergy documented on EMR Reaction Allergy Type Onset Date Status contrast dye (uncoded) Unknown Allergy Active RESULTS Component Value Reference Range Notes Glucose, Whole Blood Reviewed date:03/19/2023 03:23:39 PM Interpretation: Performing Lab:[facility], [address] [place] [phone] Notes/Report: Glucose, Whole Blood 109 60-115 mg/dL METER # : [id number] Pathology Reviewed date:04/03/2023 08:39:30 AM Interpretation: Performing Lab:[facility], [address] [place] [phone] Notes/Report: Complete Blood Count Auto Di ff Reviewed date:11/06/2023 04:28:07 PM Interpretation: Performing Lab:[facility], [address] [place] [phone] Notes/Report: White Blood Count 4.7 4.8-10.8 X10*3/uL Red Blood Count 3.21 4.20-5.50 X10*6/uL Hemoglobin 9.5 12.0-16.0 g/dl Hematocrit 29.3 37.0-47.0 % Mean Corpuscular Volume 91.3 80.0-98.0 fL Mean Corpuscular Hemoglobin 29.6 27.0-33.0 pg Mean Corpuscular HGB Conc 32.4 31.0-35.0 g/dl Red Cell Distribution Width 12.8 11.0-16.0 % Platelet Count 212 160-400 X10*3/uL Mean Platelet Volume 10.7 9.4-12.3 fL Neutrophils Percent Auto 59.4 45-73 % Imm Gran Pct Auto 0.2 0.0-0.4 % Lymphocytes Percent Auto 28.9 20-40 % Monocytes Percent Auto 8.4 2-11 % Eosinophils Percent Auto 2.7 0-4 % Basophils Percent Auto 0.4 0-2 % NRBC Pct Auto 0.0 0.0-0.2 /100WBC Neutrophils Absolute Auto 2.8 2.0-8.3 x10*3/u L Imm Gran Abs Auto 0.01 0.00-0.03 X10*3/uL Lymphocytes Absolute Auto 1.4 1.2-4.9 X10*3/u L Monocytes Absolute Auto 0.4 0.1-1.2 X10*3/uL Eosinophils Absolute Auto 0.1 0.0-0.4 X10*3/u L Basophils Absolute Auto 0.0 0.0-0.2 X10*3/uL NRBC Abs Auto 0.000 0.0-0.012 X10*3/uL Liver Panel Reviewed date:11/06/2023 04:28:19 PM Interpretation: Performing Lab:[address] [phone] Notes/Report: Bilirubin Total 0.3 0.0-1.0 mg/dL Bilirubin Direct 0.1 0.0-0.5 mg/dL Aspartate Amino Transferase 17 5-31 U/L Alanine Aminotransferase 8 0-31 U/L Total Protein 7.3 6.5-8.0 g/dL Albumin Level 4.1 3.5-5.0 g/dL Alkaline Phosphatase 89 39-117 U/L Lipase Reviewed date:11/06/2023 04:28:15 PM Interpretation: Performing Lab:[address] [address] Notes/Report: Lipase 20 8-78 U/L REASON FOR REFERRAL No Information MEDICATIONS Medication SIG (Take, Route, Frequency, Duration) Notes Start Date End Date Status Meclizine HCl 25 MG Orally Active Creon [address]3801-[address]02 UNIT Orally Active Lisinopril 30 MG Orally Act marilee Toujeo SoloStar 300 UNIT/ML Subcutaneous Active Atorvastatin Calcium 20 MG Oral for 30 Active traMADol HCl 50 MG Orally A ctive Tolterodine Tartrate ER 4 MG Oral for 30 Active Gabapentin 400 MG Orally Ac tive Trulicity 0.75 MG/0.5ML Subcutaneous Active Aspirin 81 MG 1 tablet Orally Once a day for 30 day(s) 10/23/2023 Active MiraLax (colon prep) 17 GM/SCOOP mixed with Gatorade or Crystal Light Orally begin at 5:00 p.m. the day before the procedure for 1 day 12/26/2022 Active Omeprazole 20 MG Orally Act marilee Detrol LA 2 MG 1 capsule Orally Onc e a day for 30 day(s) 12/26/2022 Active Comfort Touch Plus Lancets 30G - for 30 Active Acetaminophen Extra Strength 500 MG Orally Active Carvedilol 6.25 MG Oral for 30 Active [place] Choice Comfort EZ 33G X 4 MM for 30 Active IMMUNIZATIONS Vaccine Route Administration Date Status Comme nts Influenza Unknown 01/13/2020 Administered Influenza Unknown 02/22/2021 Administered Influenza Unknown 01/16/2022 Administered Influenza Unknown 12/19/2022 Administered SOCIAL HISTORY Tobacco Use: Social History Observation Description Date Details (start date - stop date) Never Smoker NA - NA Sex Assigned At : Social History Observation Description Sex Assigned At Unknown Tobacco Use/Smoking Question Answer Notes Patient is a nonsmoker Alcohol Screen Question Answer Notes Did you have a drink containing alcohol in the p ast year? No Points 0 Interpretation Negative PROBLEMS Problem Type ICD Code Onset Dates Problem Status W/U Status Risk SNOMED Code Notes Problem Gastroesophageal reflux disease without esophagitis (K21.9) Active confirmed 577114881 Problem Irritable bowel syndrome with diarrhea (K58.0) Active confirmed 372669682 Problem Esophageal dysphagia (R13.19) Active confirmed 71885106 Problem Esophageal diverticulum (Q39.6) Active confirmed 814303727 Problem Blood in stool (K92.1) Active confirmed 071915001 Problem Black stools (K92.1) Active confirmed 2 74219950 Problem Diarrhea, unspecified type (R19.7) Active confirmed 27331965 VITAL SIGNS Temperature 97.7 degrees Fahrenheit 10/23/2023 Blood pressure diastolic 00 mm Hg 10/23/2023 Height 63 in 10/23/2023 Blood pressure systolic 000 mm Hg 10/23/2023 Weight 165 lbs 10/23/2023 BMI 29.23 kg/m2 10/23/2023 Encounters Encounter Location Date Provider Diagnosis [facility] [address] [place], [place] [id number] 03/19/2023 Derik Bob Jr Hematochezia K92.1 [facility] [address] [place] [address] 10/23/2023 Derik Bob Jr Diarrhea, unspecified type R19.7 and Irritable bowel syndrome with diarrhea K58.0 [facility] [address] [place] [address] 03/26/2023 Derik Bob Jr Blood in stool K92.1 [facility] [address] [place] [address] 10/28/2023 Derik Bob Jr Diarrhea, unspecified type R19.7 and Generalized abdominal pain R10.84 ASSESSMENTS Encounter Date Diagnosis Assessment Notes Treatment Notes Treatment Clinical Notes 03/19/2023 Hematochezia (ICD-10 - K92.1) 10/23/2023 Irritable bowel syndrome with diarrhea (ICD-10 - K58.0) 10/23/2023 Diarrhea, unspecified type (ICD-10 - R19.7) 03/26/2023 Blood in stool (ICD-10 - K92.1) 10/28/2023 Diarrhea, unspecified type (ICD-10 - R19.7) 10/28/2023 Generalized abdominal pain (ICD-10 - R10.84) PLAN OF TREATMENT Pending Test Test Name Order Date LIVER PROFILE 10/28/2023 LIVER PROFILE 03/26/2023 LIVER PROFILE 10/23/2023 CRP 03/26/2023 CRP 10/23/2023 CBC w/o DIFF 03/26/2023 CBC w/o DIFF 10/23/2023 SED RATE (ESR) 03/26/2023 SED RATE (ESR) 10/23/2023 STOOL WBC 10/28/2023 STOOL WBC 10/23/2023 IMMUNOGLOBULINS (IgG IgA IgM) 03/26/2023 IMMUNOGLOBULINS (IgG IgA IgM) 10/23/2023 CELIAC DISEASE ANTIBODY PANEL 10/23/2023 CELIAC DISEASE ANTIBODY PANEL 03/26/2023 OVA & PARASITES (O&P) 10/23/2023 OVA & PARASITES (O&P) 10/28/2023 PANCREATIC ELASTASE 10/23/2023 FECAL FAT QUAL 10/23/2023 TSH REFLEX FREE T4 10/23/2023 CBC & MANUAL DIFFERENTIAL 10/28/2023 Lipase 10/28/2023 GI PANEL 10/23/2023 GI PANEL 10/28/2023 Future Test Test Name Order Date UPPER GI ENDOSCOPY 08/24/2020 UPPER GI ENDOSCOPY ANY OTHER TECHNIQUE 0 12/26/2022 COLONOSCOPY 12/26/2022 Next Appt Details Provider Name:Derik wynn Jr, 10/21/2024 10:20:00 AM, [address] [place] [address], [address], [place], [address], Insurance Providers Payer Name Payer Address Payer Phone Subscriber Number Group Number Insured Name Patient Relationship to Insured Coverage Start Date Coverage End Date [facility] [address] Attn Claims CLAUDIA Gill [id number] MAMADOU BOYKIN Self - patient is the insured MEDICAID OF [facility] [address] [place] [address] [phone] [id number] MAMADOU BOYKIN Self - patient is the insured MEDICAL (GENERAL) HISTORY Medical History History ICD Code Diabetes mellitus type 2 Hypertension Gastroesophageal reflux disease Neuropathy Hyperlipidemia IBS/diarrhea predominant urinary incontinence Left bundle-branch block Chronic kidney disease Surgical History Surgery Date(Month/Year) cholecystectomy Left ankle surgery Bilateral cataract repair ERCP and sphincterotomy, 201 2 for abnormal MRI, no stones or stricture colonoscopy 02/16, colon antolin yps and diverticulosis, further screening optional based on age Bladder prolapse repair
--- OUTSIDE RECORDS SUMMARY | 2024-03-17 11:25 | XMS_ITS ---
Author Organization [facility] Address [address] [place] [address] Care Team Providers Care Patient Accounts Manager Name Role Phone SANTIAGO NOVAK Primary Care Provider Tiffanie Bob Jr, Derik Tamayo [phone] Encounters Encounter Location Date Provider Diagnosis [facility] [address] [place] [address] 03/26/2023 Derik Bob Jr Blood in stool K92.1 ASSESSMENTS Encounter Date Diagnosis Assessment Notes Treatment Notes Treatment Clinical Notes 03/26/2023 Blood in stool (ICD-10 - K92.1) PLAN OF TREATMENT Pending Test Test Name Order Date LIVER PROFILE 03/26/2023 CRP 03/26/2023 CBC w/o DIFF 03/26/2023 SED RATE (ESR) 03/26/2023 IMMUNOGLOBULINS (IgG IgA IgM) 03/26/2023 CELIAC DISEASE ANTIBODY PANEL 03/26/2023 Next Appt Details Provider Name:Derik wynn Jr, 10/21/2024 10:20:00 AM, [address], [address], [place], [address],
[2024-03-17 12:02] LABS: Hematocrit 29.4 % (37.0-47.0); Hemoglobin 9.4 g/dl (12.0-16.0); Mean Corpuscular Hemoglobin 29.3 pg (27.0-33.0); Mean Corpuscular Volume 91.6 fL (80.0-98.0); Mean Platelet Volume 10.5 fL (9.4-12.3); Platelet Count 239 X10*3/uL (160-400); Red Blood Count 3.21 X10*6/uL (4.20-5.50); Red Cell Distribution Width 12.7 % (11.0-16.0); White Blood Count 4.2 X10*3/uL (4.8-10.8)
[2024-03-17 12:06] LABS: Appearance Urine Clear; Color Urine Yellow; Glucose Urine UA Negative (Negative); Leukocyte Esterase Urine Negative (Negative); Nitrite Urine Negative (Negative); Urine Blood Negative (Negative); Urine Ketones Negative (Negative); Urine Protein Negative (Neg-Trace)
[2024-03-17 12:44] LABS: Erythrocyte Sedimentation Rate 34 MM/HR (0-20)
[2024-03-17 12:47] LABS: Alanine Aminotransferase 18 U/L (0-31); Albumin Level 4.2 g/dL (3.5-5.0); Alkaline Phosphatase 96 U/L (39-117); Anion Gap 8 (12-20); Aspartate Amino Transferase 28 U/L (5-31); Bilirubin Direct 0.1 mg/dL (0.0-0.5); Bilirubin Total 0.4 mg/dL (0.0-1.0); Blood Urea Nitrogen 21 mg/dL (9-16); Calcium 8.9 mg/dL (8.4-10.2); Carbon Dioxide 30 mmol/L (22-29); Chloride 107 mmol/L (96-108); Cholesterol 163 mg/dL (<200); Estimated Glomerular Filt Rate 60; Glucose Random 86 mg/dL (60-115); HDL Cholesterol 38 mg/dL (>40); LDL Cholesterol Calculated 98 mg/dL (<100); Potassium 5.4 mmol/L (3.3-5.1); Sodium 140 mmol/L (135-145); Total Protein 7.2 g/dL (6.5-8.0); Triglycerides 138 mg/dL (<150)
[2024-03-17 12:50] LABS: Thyroid Stimulating Hormone 1.58 uIU/mL (0.32-4.0)
== END 2024-03-17 11:03 | disposition home or self-care (01) ==
LOC: HO.LAB 11:02
PROVIDERS: PCP Internal Medicine; Visit Provider Internal Medicine
DX: R53.1 Weakness (principal); Z79.4 Long term (current) use of insulin; E11.69 Type 2 diabetes mellitus with other specified complication
CPT/HCPCS: 36415; 80048; 80061; 80076; 81003; 84443; 85027; 85652

== ENCOUNTER → 2024-05-08 09:20 | Outpatient (BNVA) | payer OTHER, SELFPAY | PROVIDERS: PCP Internal Medicine; Visit Provider Nurse Practitioner Family | DX: I13.10 Hypertensive heart and chronic kidney disease without heart failure, with stage 1 through stage 4 chronic kidney disease, or unspecified chronic kidney disease (principal); I42.9 Cardiomyopathy, unspecified; I44.7 Left bundle-branch block, unspecified; E11.22 Type 2 diabetes mellitus with diabetic chronic kidney disease; N18.9 Chronic kidney disease, unspecified; E78.5 Hyperlipidemia, unspecified; R94.39 Abnormal result of other cardiovascular function study; R07.89 Other chest pain; R00.2 Palpitations | CPT/HCPCS: 93005; 99212 ==

== ENCOUNTER → 2024-05-08 09:20 | Outpatient (AMB) | payer OTHER, SELFPAY | END | disposition home or self-care (01) | PROVIDERS: PCP Internal Medicine; Visit Provider Nurse Practitioner Family | CPT/HCPCS: 93010; 99214; G2211 ==

== ENCOUNTER → 2024-05-25 10:48 | Outpatient (REF) | payer OTHER, SELFPAY ==
--- OUTSIDE RECORDS SUMMARY | 2024-05-25 12:16 | XMS_ITS ---
Demographics Address [address] [place] [address] Mobile Preferred Language es Marital Status Unknown Judaism Affiliation Unknown Race or A laska [place] Additional Race(s) Nelly Ethnic Group or Author Organization [facility] Address [address] [place] [address] Care Team Providers Care Liquor Commissioner Name Role Phone SANTIAGO NOVAK Primary Care Provider Derik Powell Jr Unavailable ALLERGIES Allergen (clinical drug ingredient) Drug/Non Drug [...] Meclizine HCl 25 MG Orally Active Creon 55081-[address] UNIT Orally Active MiraLax (colon prep) 17 GM/SCOOP mixed with Gatorade or Crystal Light Orally begin at 5:00 p.m. the day before the procedure for 1 day 12/26/2022 Active Detrol LA 2 MG 1 capsule Orally Onc e a day for 30 day(s) 12/26/2022 Active [place] Choice Comfort EZ 33G X 4 MM [...] No Points 0 Interpretation Negative VITAL SIGNS Temperature 97.7 degrees Fahrenheit 10/23/19 Blood pressure systolic 000 mm Hg 10/23/19 Blood pressure diastolic 00 mm Hg 024 Height 63 in 10/23/2023 Weight 165 lbs 10/23/2023 BMI 29.23 kg/m2 10/23/2023 Encounters Encounter Location Date Provider Diagnosis [facility] [address] [place] [address] 10/23/2023 Derik Bob Jr Diarrhea, unspecified type [...] 10:20:00 AM, [address], [address], [place], [address],
--- OUTSIDE RECORDS SUMMARY | 2024-05-25 12:16 | XMS_ITS ---
Author Organization [facility] Address [address] [place] [address] Care Team Providers Care Primary Clinician Name Role Phone SANTIAGO NOVAK Primary Care Provider Tiffanie Bob Jr, Derik Tamayo Encounters Encounter Location Date Provider Diagnosis [facility] [address] [place] [address] 03/26/2023 Derik Bob Jr Blood in stool [...] 10:20:00 AM, [address], [address], [place], [address],
--- OUTSIDE RECORDS SUMMARY | 2024-05-25 12:16 | XMS_ITS | Patient Health Record ---
Demographics Address [address] [place] [address] Mobile Preferred Language es Marital Status Unknown Presybeterian Affiliation Unknown Race or A laska [place] Additional Race(s) Nelly Ethnic Group or Author Organization [facility] Address [address] [place] [address] Care Team Providers Care Airfield Operations Specialist Name Role Phone SANTIAGO NOVAK Primary Care Provider Derik Powell Jr Unavailable ALLERGIES Allergen (clinical drug ingredient) Drug/Non Drug Allergy documented on EMR Reaction Allergy Type Onset Date Status contrast dye (uncoded) Unknown Allergy Active RESULTS Component Value Reference Range Notes Complete Blood Count Auto Di ff Reviewed date:11/06/2023 04:28:07 PM Interpretation: Performing Lab:[facility], [address] [place] [phone] Notes/Report: White Blood Count 4.7 4.8-10.8 X10*3/uL [...] Panel Reviewed date:11/06/2023 04:28:19 PM Interpretation: Performing Lab:[facility], [address] [place] [phone] Notes/Report: Bilirubin Total 0.3 0.0-1.0 mg/dL Bilirubin Direct 0.1 0.0-0.5 mg/dL Aspartate Amino Transferase 17 5-31 U/L Alanine Aminotransferase 8 0-31 U/L Total Protein 7.3 6.5-8.0 g/dL Albumin Level 4.1 3.5-5.0 g/dL Alkaline Phosphatase 89 39-117 U/L Lipase Reviewed date:11/06/2023 04:28:15 PM Interpretation: Performing Lab:[facility], [address] [place] [phone] Notes/Report: Lipase 20 8-78 U/L REASON FOR REFERRAL No Information MEDICATIONS Medication SIG (Take, Route, Frequency, Duration) Notes Start Date End Date Status Meclizine HCl 25 MG Orally Active Creon 58321-[address]374 UNIT Orally Active Lisinopril 30 MG Orally [...] Carvedilol 6.25 MG Oral for 30 Active [place] Choice Comfort EZ 33G X 4 MM [...] W/U Status Risk SNOMED Code Notes Problem Irritable bowel syndrome with diarrhea (K58.0) Active confirmed 099010179 Problem Blood in stool (K92.1) Active confirmed 270756877 Problem Gastroesophageal reflux disease without esophagitis (K21.9) Active confirmed 573738294 Problem Diarrhea, unspecified type (R19.7) Active confirmed 84665936 Problem Esophageal diverticulum (Q39.6) Active confirmed 900814326 Problem Esophageal dysphagia (R13.19) Active confirmed 08512898 Problem Black stools (K92.1) Active confirmed 2 94009882 VITAL SIGNS Temperature 97.7 degrees Fahrenheit 10/23/2023 Blood pressure diastolic 00 mm Hg 10/23/2023 Height 63 in 10/23/2023 Blood pressure systolic 000 mm Hg 10/23/2023 Weight 165 lbs 10/23/2023 BMI 29.23 kg/m2 10/23/2023 Encounters Encounter Location Date Provider Diagnosis [facility] [address] [place] [address] 10/23/2023 Derik Bob Jr Diarrhea, unspecified type R19.7 and Irritable bowel syndrome with diarrhea K58.0 [facility] [address] [place] [address] 10/28/2023 Derik Bob Jr Diarrhea, unspecified type R19.7 and Generalized abdominal pain R10.84 ASSESSMENTS Encounter Date Diagnosis Assessment Notes Treatment Notes Treatment Clinical Notes 10/23/2023 Irritable bowel syndrome with diarrhea (ICD-10 - K58.0) 10/23/2023 Diarrhea, unspecified type (ICD-10 - R19.7) 10/28/2023 Diarrhea, unspecified type (ICD-10 - R19.7) 10/28/2023 Generalized abdominal pain (ICD-10 - R10.84) PLAN OF TREATMENT Pending Test Test Name Order Date LIVER PROFILE 10/23/2023 LIVER PROFILE 03/26/2023 LIVER PROFILE 10/28/2023 CRP 10/23/2023 CRP 03/26/2023 CBC w/o DIFF 10/23/2023 CBC w/o DIFF 03/26/2023 SED RATE (ESR) 03/26/2023 SED RATE (ESR) 10/23/2023 STOOL WBC 10/23/2023 STOOL WBC 10/28/2023 IMMUNOGLOBULINS (IgG IgA IgM) 10/23/2023 IMMUNOGLOBULINS (IgG IgA IgM) 03/26/2023 CELIAC DISEASE ANTIBODY PANEL 10/23/2023 CELIAC DISEASE ANTIBODY PANEL 03/26/2023 OVA & PARASITES (O&P) 10/28/2023 OVA & PARASITES (O&P) 10/23/2023 PANCREATIC ELASTASE [...] 10:20:00 AM, [address], [address], [place], [address], Insurance Providers Payer Name Payer Address Payer Phone Subscriber Number Group Number Insured Name Patient Relationship to Insured Coverage Start Date Coverage End Date [facility] [address] Attn Claims CLAUDIA Gill [id number] MAMADOU BOYKIN Self - patient is the insured MEDICAID OF [employer] [address] [place] [phone] [id number] MAMADOU BOYKIN Self - patient is the [...]
--- OUTSIDE RECORDS SUMMARY | 2024-05-25 12:16 | XMS_ITS ---
Author Organization [facility] Address [address] [place] [address] Care Team Providers Care Global Account Executive Name Role Phone SANTIAGO NOVAK Primary Care Provider Tiffanie Bob Jr, Derik Tamyao PROBLEMS Problem Type ICD Code Onset Dates Problem Status W/U Status Risk SNOMED Code Notes Problem Diarrhea, unspecified type (R19.7) Active confirmed 99892656 Encounters Encounter Location Date Provider Diagnosis [facility] [address] [place] [address] 10/28/2023 Derik Bob Jr Diarrhea, unspecified type [...] Name:Derik wynn Jr, 10/21/2024 10:20:00 AM, [address], [address], [place], [address],
== END ==
LOC: HO.CARD 10:48
PROVIDERS: PCP Internal Medicine; Visit Provider Nurse Practitioner Family
DX: R00.2 Palpitations (principal)
CPT/HCPCS: 93242

== ENCOUNTER → 2024-05-25 10:51 | Outpatient (BNV) | payer OTHER, SELFPAY | PROVIDERS: PCP Internal Medicine; Visit Provider Internal Medicine Cardiovascular Disease | DX: I49.1 Atrial premature depolarization (principal); I49.3 Ventricular premature depolarization | CPT/HCPCS: 93244 ==

== ENCOUNTER 2024-06-03 19:00 | Emergency (ER) | payer OTHER, SELFPAY ==
--- NOTE | 2024-06-03 | ECG_ITS ---
Test Reason : DIZZINESS Blood Pressure : */* mmHG Vent. Rate : 83 BPM Atrial Rate : 83 BPM P-R Int : 176 ms QRS Dur : 156 ms QT Int : 432 ms P-R-T Axes : 43 -20 123 degrees QTcB Int : 507 ms Normal sinus rhythm Left bundle branch block Abnormal ECG When compared with ECG of 19-Apr-2023 11:13, No significant change was found Referred By: Generic ED Physician Electronically Signed By: LATOYA HERNANDEZ MD
--- NOTE | ~2024-06-03 | CT_ITS ---
CLINICAL HISTORY: headache, difficulty walking CT head without contrast Comparison: Head CT from 11/15/2021 Findings: Moderate volume loss and mild increase in ventricular dilatation. Mild communicating hydrocephalus such as normal pressure hydrocephalus is considered. Moderate white matter pathology is not significantly changed and likely due to small-vessel ischemic disease. No arterial territorial infarction. No acute intracranial hemorrhage No acute skull fracture. Vascular calcifications are redemonstrated. Imaged paranasal sinuses and imaged mastoid air cells are well aerated. IMPRESSION: 1. Mild increase in ventriculomegaly is nonspecific. Mild communicating hydrocephalus such as normal pressure hydrocephalus is considered. 2. No acute intracranial hemorrhage This document has been electronically signed by: Ramón Mendoza MD on 06/03/2024 22:10:34
[2024-06-03 19:05] VITALS: BP 116/70; BP 132/46; PULSE 80; PULSE 81; RESP 16; TEMP 36.5; O2SAT 96; O2SAT 98; BMI 26.8
[2024-06-03 19:44] LABS: MANUAL DIFF FLAG NO
[2024-06-03 19:46] LABS: Basophils Percent Auto 0.1 % (0-2); Eosinophils Absolute Auto 0.1 X10*3/uL (0.0-0.4); Eosinophils Percent Auto 1.2 % (0-4); Hematocrit 28.5 % (37.0-47.0); Hemoglobin 9.3 g/dl (12.0-16.0); Imm Gran Abs Auto 0.02 X10*3/uL (0.00-0.03); Imm Gran Pct Auto 0.3 % (0.0-0.4); Lymphocytes Percent Auto 15.2 % (20-40); Mean Corpuscular HGB Conc 32.6 g/dl (31.0-35.0); Mean Corpuscular Hemoglobin 29.3 pg (27.0-33.0); Mean Corpuscular Volume 89.9 fL (80.0-98.0); Mean Platelet Volume 10.4 fL (9.4-12.3); Monocytes Absolute Auto 0.4 X10*3/uL (0.1-1.2); Monocytes Percent Auto 6.1 % (2-11); Neutrophils Absolute Auto 5.2 x10*3/uL (2.0-8.3); Neutrophils Percent Auto 77.1 % (45-73); Platelet Count 205 X10*3/uL (160-400); Red Blood Count 3.17 X10*6/uL (4.20-5.50); Red Cell Distribution Width 12.9 % (11.0-16.0); White Blood Count 6.8 X10*3/uL (4.8-10.8)
--- OUTSIDE RECORDS SUMMARY | 2024-06-03 19:51 | XMS_ITS | Clinical Summary ---
Author Organization [employer] Address [address] [place] [address] Care Team Providers Care Boiler Engineer Name Role Phone Unavailable Primary Care Provider Unavailabl e Immunizations Name Administration Dates Next Due Influenza High-dose Quadriva lent Preservative Free 02/13/2022,01/23/2021,12/01/2019 Influenza, High Dose Seasona l, Preservative Free 12/24/2018,03/18/2018,12/31/2016,12/29,12/20/2014 Influenza, IIV3, injectable 12/30/2012, 1 Pfizer Covid-19 Vaccine 12+ 04/03/2020 Pfizer Covid-19 Vaccine 12+ Bivalent 06/07/2022 Pneumococcal Conjugate PCV 13 01/23/2021 Pneumococcal Polysaccharide PPSV23 05/28/2018,,05/18/1993 Rabies, intramuscular 01/06/2015 TD (adult), 2 Lf tetanus tox oid, preservative free, adsorbed 12/22/2001,01/27/2001 Td (adult), 5 Lf tetanus tox oid, preservative free, adsorbed 01/06/2015 Tdap 08/28/2012 Social History Tobacco Use Types Packs/Day Years Used Date Smoking Tobacco: Never Assessed Comments Unknown Sex and Gender Information Value Date Recorded Sex Assigned at Female 01/29/2022 10:14 AM EDT Legal Sex Female 10:14 AM EDT Gender Identity Female 01/29/2022 10:14 AM EDT Sexual Orientation Straight 01/29/2022 10 :14 AM EDT Last Filed Vital Signs Vital Sign Reading Time Taken Comments Blood Pressure 138/77 11/15/2021 12:08 AM EDT Pulse 89 11/15/2021 12:08 AM EDT Temperature - - Respiratory Rate - - Oxygen Saturation - - Inhaled Oxygen Concentration - - Weight 77.1 kg (170 lb) 11/15/2021 12:08 AM EDT Height 157.5 cm (5' 2 ) 11/15/2021 12:08 AM EDT Body Mass Index 31.09 11/15/2021 12:08 AM EDT Plan of Treatment Health Maintenance Due Date Last Done Comments Depression Screening 1935 Lipid Panel 1935 SDOH Screening 1935 Alcohol/Substance Use Screening 1947 Tobacco Screening 1947 Zoster Vaccines (1 of 2) 10/10/1985 RSV Patients and Patients Aged 60 years or older (1 - 1-dose 75+ series) 10/10/2010 COVID-19 Vaccine ( season) 2023 06/07/2022, 05/23/2021, 07/25/2020, Additional history exists Influenza Vaccine (#1) 2023 , 01/23/2021, 12/01/2019, Additional history exists DTaP/Tdap/Td Vaccines (3 - Td or Tdap) 01/06/2025 01/06/2015, 08/28/2012, 12/22/2001, Additional history exists Pneumococcal Vaccine: 50+ Years Completed 01/23/2021, 05/28/2018, 12/08/2009, Additional history exists HIB Vaccines Aged Out No longer eligi ble based on patient's age to complete this topic HPV Vaccines Aged Out No longer eligi ble based on patient's age to complete this topic Hepatitis A Vaccines Aged Out No long er eligible based on patient's age to complete this topic Hepatitis B Vaccines Aged Out No long er eligible based on patient's age to complete this topic IPV Vaccines Aged Out No longer eligi ble based on patient's age to complete this topic Meningococcal Vaccine Aged Out No jaylin ishan eligible based on patient's age to complete this topic RSV under 20 months Aged Out No longe r eligible based on patient's age to complete this topic Rotavirus Vaccines Aged Out No longer eligible based on patient's age to complete this topic Insurance [facility]
--- OUTSIDE RECORDS SUMMARY | 2024-06-03 19:51 | XMS_ITS ---
Author Organization [facility] Address [address] [place] [address] Care Team Providers Care Quality Assurance Representative Name Role Phone SANITAGO NOVAK Primary Care Provider Tiffanie Bob Jr, Derik Tamayo Problems Problem Type SNOMED Code ICD Code Onset Dates Problem Status W/U Status Risk Notes Problem [id number] Diarrhea, unspecified type (R19.7) Active confirmed Encounters Encounter Location Date Provider Diagnosis [facility] [address] [place] [address] 10/28/2023 Derik Bob Jr Diarrhea, unspecified type R19.7 and Generalized abdominal pain R10.84 Assessments Encounter Date Diagnosis (ICD Code) Assessment Notes Treatment Notes Treatment Clinical Notes Section Notes 10/28/2023 Diarrhea, unspecified type (ICD-10 - R19.7) 10/28/2023 Generalized abdominal pain (ICD-10 - R10.84) Plan Of Treatment Pending Test Test Name Order Date LIVER PROFILE 10/28/2023 STOOL WBC 10/28/2023 OVA & PARASITES (O&P) 10/28/2023 CBC & MANUAL DIFFERENTIAL 10/28/2023 Lipase 10/28/2023 GI PANEL 10/28/2023 Next Appt Details Provider Name:Derik wynn Jr, 10/21/2024 10:20:00 AM, [address], [address], [place], [address], Progress Notes * MAMADOU BOYKINDOB:1935 (88 yo F)Acc No.[id number]:10/28/2023 Patient:?MAMADOU BOYKIN :1935???Age:88 Y???Sex:Female Address:[address] [place] [address], [id number] Subjective: * Chief Complaints: * ??? * Medical History:? * Surgical History:? * Hospitalization/Major Diagno stic Procedure:? * Medications:? Objective: Assessment: * Assessment: 1.?Diarrhea, unspecified typ e - R19.7?2.?Generalized abdominal pain - R10.84? Plan: * Treatment: 2.?Generalized abdominal jonathan n?LAB: LIVER PROFILE ?LAB: STOOL WBC ?LAB: OVA & PARASITES (O&P) ?LAB: CBC & MANUAL DIFFERENTIAL ?LAB: Lipase ?LAB: GI PANEL * Procedure Codes:? * true * Date:? Generated for Pierre avila/Anamika/Donnaitting on:?06/03/2024 07:51 PM EST
--- OUTSIDE RECORDS SUMMARY | 2024-06-03 19:51 | XMS_ITS ---
Demographics Address [address] [place] [address] Mobile Preferred Language es Marital Status Unknown Adventist Affiliation Unknown Race or A laska [place] Additional Race(s) [place] Ethnic Group or Author Organization [facility] Address [address] [place] [id number] Care Team Providers Care Tie Buyer Name Role Phone SANTIAGO NOVAK Primary Care Provider Tiffanie Bob Jr, Derik Tamayo [phone] Encounters Encounter Location Date Provider Diagnosis [facility] [address] [place] [phone] 03/26/2023 Derik Bob Jr Blood in stool K92.1 Assessments Encounter Date Diagnosis (ICD Code) Assessment Notes Treatment Notes Treatment Clinical Notes Section Notes 03/26/2023 Blood in stool (ICD-10 - K92.1) Plan Of Treatment Pending Test Test Name Order Date LIVER PROFILE 03/26/2023 CRP 03/26/2023 CBC w/o DIFF 03/26/2023 SED RATE (ESR) 03/26/2023 IMMUNOGLOBULINS (IgG IgA IgM) 03/26/2023 CELIAC DISEASE ANTIBODY PANEL 03/26/2023 Next Appt Details Provider Name:Derik wynn Jr, 10/21/2024 10:20:00 AM, [address], [address], [place], [address], Progress Notes * MAMADOU BOYKINDOB:1935 (87 yo F)Acc No.[id number]:03/26/2023 Patient:?MAMADOU BOYKIN :1935???Age:87 Y???Sex:Female Address:[address] [place] [address], [place], [address] Subjective: * Chief Complaints: * ??? * Medical History:? * Surgical History:? * Hospitalization/Major Diagno stic Procedure:? * Medications:? Objective: Assessment: * Assessment: 1.?Blood in stool - K92.1 (P rimary)? Plan: * Treatment: * Procedure Codes:? * true * Date:? Generated for Pierre avila/Anamika/Kesha on:?06/03/2024 07:51 PM EST
--- OUTSIDE RECORDS SUMMARY | 2024-06-03 19:51 | XMS_ITS ---
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 the day before the procedure for 1 day 12/26/2022 Active Detrol LA 2 MG 1 capsule Orally Onc e a day for 30 day(s) 12/26/2022 Active [place] Choice Comfort EZ 33G X 4 MM for 30 Active Toujeo SoloStar 300 UNIT/ML Subcutaneous Active traMADol HCl 50 MG Orally A ctive Gabapentin 400 MG Orally Ac tive Trulicity 0.75 MG/0.5ML Subcutaneous Active Lisinopril 30 MG Orally Act marilee Omeprazole 20 MG Orally Act marilee Acetaminophen Extra Strength 500 MG Orally Active Social History Tobacco Use: Social History Observation Description Date Details (start date - stop date) Never Smoker NA - NA Tobacco Use/Smoking Question Answer Notes Patient is a nonsmoker Alcohol Screen Question Answer Notes Did you have a drink containing alcohol in the p ast year? No Points 0 Interpretation Negative Vital Signs Temperature 97.7 degrees Fahrenheit 10/23/19 Blood pressure systolic 000 mm Hg 10/23/19 Blood pressure diastolic 00 mm Hg 024 Height 63 in 10/23/2023 Weight 165 lbs 10/23/2023 BMI 29.23 kg/m2 10/23/2023 Encounters Encounter Location Date Provider Diagnosis [facility] [address] [place] [address] 10/23/2023 Derik Bob Jr Diarrhea, unspecified type R19.7 and Irritable bowel syndrome with diarrhea K58.0 Assessments Encounter Date Diagnosis (ICD Code) Assessment Notes Treatment Notes Treatment Clinical Notes Section Notes 10/23/2023 Diarrhea, unspecified type (ICD-10 - R19.7) We have recommended further evaluation of her symptoms. She will have blood work that we ordered after her nonspecific changes noted on the biopsies as above. She will also have stool testing. Followup will be in one year. She can continue to use jlez-rgx-zzwbyqi antidiarrheals as needed for her symptoms. 10/23/2023 Irritable bowel syndrome with diarrhea (ICD-10 - K58.0) We have recommended further evaluation of her symptoms. She will have blood work that we ordered after her nonspecific changes noted on the biopsies as above. She will also have stool testing. Followup will be in one year. She can continue to use iwle-ijm-dvayoay antidiarrheals as needed for her symptoms. Plan Of Treatment Pending Test Test Name [...] Follow Up: 1 Year, Reason: Provider Name:Derik Bennett wynn , 10/21/2024 10:20:00 AM, [address], [address] [facility], [place], [address], Progress Notes * MAMADOU BOYKINDOB:1935 (88 yo F)Acc No.[id number]:10/23/2023 Progress Notes Patient:?MAMADOU BOYKIN Provider:?Derik Bob MD :1935???Age:88 Y???Sex:Female D ate:10/23/2023 Address:[address] [place], [place] [id number] Pcp:SANTIAGO NOVAK Subjective: * Chief Complaints: * ???1. Patient presents today for IBS,gerd. * HPI: ???New symptom(s):? The patient is an 88-year-old woman seen today in followup. She was last seen for upper endoscopy and colonoscopy in March of 2023 for evaluation of blood in the stool and black stools. Both exams were normal. We reviewed this today. She did have biopsies from the duodenum which showed nonspecific changes with increase in intraepithelial lymphocytes and preserved villous architecture. We reviewed this today. Lab work was ordered but has not been done. ?Today she complains of diarrhea. This occurs about 4 times during the day but not everyday. There is no blood. She takes Pepto-Bismol which seem to help her symptoms. She had been on Creon, prescribed by another provider but apparently stopped this over a year ago. She is unable to see what makes it worse. * Medical History:?Diabetes me llitus type 2, Hypertension, Gastroesophageal reflux disease, Neuropathy, Hyperlipidemia, IBS/diarrhea predominant, Urinary incontinence, Left bundle-branch block, Chronic kidney disease. * Surgical History:?cholecyste ctomy , Left ankle surgery , Bilateral cataract repair , ERCP and sphincterotomy, 2011 for abnormal MRI, no stones or stricture , colonoscopy 02/16, colon polyps and diverticulosis, further screening optional based on age , Bladder prolapse repair . * Family History:?Father: dece ased, diagnosed with HTN (hypertension).?Mother: , diagnosed with Heart disease, HTN (hypertension).?Siblings: diagnosed with HTN (hypertension).? Denies family hx of colon cancer, colon polyps or liver ds. Son had cancer in the esophagus and lungs (passed). * Social History:?Tobacco Use:?Tobacco Use/Smoking?Patient is a?nonsmoker.?Drugs/Alcohol:?Alcohol Screen?Did you have a drink containing alcohol in the past year??No,?Points?0,?Interpretation?Negative.?Miscellaneous:?Marital status: . Occupation: Disabled at home. * Medications:?Taking Lisinopr il 30 MG Tablet Orally , Taking Omeprazole 20 MG Capsule Delayed Release Orally , Taking Acetaminophen Extra Strength 500 MG Tablet Orally , Taking traMADol HCl 50 MG Tablet Orally , Taking Toujeo SoloStar 300 UNIT/ML Solution Pen-injector Subcutaneous , Taking Trulicity 0.75 MG/0.5ML Solution Pen-injector Subcutaneous , Taking Gabapentin 400 MG Capsule Orally , Taking Creon 50324- 42572 UNIT Capsule Delayed Release Particles Orally , Taking Meclizine HCl 25 MG Tablet Orally , Taking Falafel Games Choice Comfort EZ 33G X 4 MM Miscellaneous , Taking Detrol LA 2 MG Capsule Extended Release 24 Hour 1 capsule Orally Once a day, Taking MiraLax (colon prep) 17 GM/SCOOP Powder mixed with Gatorade or Crystal Light Orally begin at 5:00 p.m. the day before the procedure, Taking Carvedilol 6.25 MG Tablet Oral , Taking Comfort Touch Plus Lancets 30G - Miscellaneous , Taking Tolterodine Tartrate ER 4 MG Capsule Extended Release 24 Hour Oral , Taking Atorvastatin Calcium 20 MG Tablet Oral , Taking Aspirin 81 MG Tablet Chewable 1 tablet Orally Once a day, Discontinued Januvia 100 MG Tablet Orally , Discontinued amLODIPine Besylate 5 MG Tablet Orally , Medication List reviewed and reconciled with the patient * Allergies:?Contrast Dye. Objective: * Vitals:?Wt: 165 lbs, Ht: 63 in, BMI:29.23 Index, BP: 000/00 mm Hg, Temp: 97.7. * Examination: ???General Examination: ???On examination, she appears well. Skin is anicteric. Lungs are clear. Heart shows regular rate and rhythm. Abdomen is soft without focal mass or tenderness. Extremities are without edema. Assessment: * Assessment: 1.?Diarrhea, unspecified typ e - R19.7 (Primary)?2.?Irritable bowel syndrome with diarrhea - K58.0? We have recommended further evaluation of her symptoms. She will have blood work that we ordered after her nonspecific changes noted on the biopsies as above. She will also have stool testing. Followup will be in one year. She can continue to use zfhy-ilk-lzytsox antidiarrheals as needed for her symptoms. Plan: * Treatment: * Procedure Codes:?G9903 Pt sc rn tbco id as non user, G9744 PATIENT NOT ELIG D/T ACTIVE DX HTN * Preventive Medicine:? ??Counseling:?Care goal follow-up plan:?Above Normal BMI Follow-up?Giving encouragement to exercise,?BMI management provided?Yes.? ??Urinary Incontinence:?Urinary Incontinence?Assessment:?Present,?Plan of care documented:?Yes,?Type of plan of care:?Lifestyle interventions.? ??Screenings:?Fall Risk Screening?Fall Risk Assessment:?No falls in the past year.? * Follow Up:?1 Year * * Sign off status: Completed true * Provider:?Derik Bob MD Date:?0 10/23/2023 Generated for Pierre avila/Anamika/Donnaitting on:?06/03/2024 07:51 PM EST History and Physical Notes * HPI (History of Present Illness) Category Sub-Category Detail Notes Category Not es New symptom(s) The patient is an 88-year-old woman seen today in followup. She was last seen for upper endoscopy and colonoscopy in March of 2023 for evaluation of blood in the stool and black stools. Both exams were normal. We reviewed this today. She did have biopsies from the duodenum which showed nonspecific changes with increase in intraepithelial lymphocytes and preserved villous architecture. We reviewed this today. Lab work was ordered but has not been done. Today she complains of diarrhea. This occurs about 4 times during the day but not everyday. There is no blood. She takes Pepto-Bismol which seem to help her symptoms. She had been on Creon, prescribed by another provider but apparently stopped this over a year ago. She is unable to see what makes it worse. Examination Category Sub-Category Detail Notes Category Not es General Examination On exami nation, she appears well. Skin is anicteric. Lungs are clear. Heart shows regular rate and rhythm. Abdomen is soft without focal mass or tenderness. Extremities are without edema.
[2024-06-03 20:07] LABS: Alanine Aminotransferase 16 U/L (0-31); Albumin Level 3.7 g/dL (3.5-5.0); Alkaline Phosphatase 111 U/L (39-117); Anion Gap 8 (12-20); Aspartate Amino Transferase 31 U/L (5-31); Bilirubin Total 0.3 mg/dL (0.0-1.0); Blood Urea Nitrogen 18 mg/dL (9-16); Calcium 8.8 mg/dL (8.4-10.2); Carbon Dioxide 26 mmol/L (22-29); Chloride 110 mmol/L (96-108); Creatinine Clr Calc Pharmacy 34.7; Estimated Glomerular Filt Rate 48; Glucose Random 263 mg/dL (60-115); Lipase 16 U/L (8-78); Magnesium 1.9 mg/dL (1.6-2.6); Potassium 5.4 mmol/L (3.3-5.1); Sodium 139 mmol/L (135-145); Total Protein 6.9 g/dL (6.5-8.0)
--- NOTE | 2024-06-03 20:20 | ED_ITS ---
HPI - General Adult General Chief complaint: Dizziness Stated complaint: increased dizziness, low BP per fam Time Seen by Provider: 06/03/24 20:19 History of Present Illness ED Provider: Zackery TATE narrative: Year old woman with a history of hypertension, type 2 diabetes, and chronic kidney disease who lives at home with her son and her grandson. She says that she felt slightly dizzy this morning when she 1st woke up which was not very unusual but then she felt better. At around 05:00 o'clock this afternoon however she felt worse with increasing dizziness and some pain in the back of her head that was not associated with any injury. She did not fall her family thought she seemed somewhat confused. They called an ambulance and she was brought to the hospital. By the time she got here she was already feeling considerably better. At the time that I saw her she was not having any ongoing headache or dizziness or any other significant symptoms. At no point did she have any chest pain. Related Data Home Medications ?Medication ?Instructions ?Recorded ?Confirmed mirabegron 50 mg tablet,extended 50 mg PO DAILY 02/14/22 05/08/24 release 24 hr (Myrbetriq) tolterodine 4 mg capsule,extended 4 mg PO DAILY 04/19/23 05/08/24 release 24 hr Previous Rx's ?Medication ?Instructions ?Recorded epinephrine 0.3 mg/0.3 mL 0.3 mg (0.3 mL) IM Q10M PRN 03/26/20 injection, auto-injector (EpiPen anaphylaxis #1 ea 2-Mariano) blood pressure monitor (Blood #1 ea 06/06/20 Pressure Kit) commode (bedside commode) #1 ea 06/12/21 blood-glucose meter (OneTouch #1 ea 12/31/22 Ultra2 Meter) lancets 30 gauge (OneTouch #100 ea 12/31/22 UltraSoft 2 Lancet) fluticasone propionate 50 2 spray intranasal DAILY #16 grams 05/08/23 mcg/actuation nasal spray,suspension (Allergy Relief (fluticasone)) insulin glargine U-300 conc 300 20 unit (0.0667 mL) subcut BEDTIME 05/30/23 unit/mL (1.5 mL) subcutaneous pen 30 days #4.5 mL (Toujeo SoloStar U-300 Insulin) body wipes #1 ea 10/09/23 aspirin 81 mg tablet,delayed 81 mg PO DAILY 90 days #90 tabs 10/17/23 release atorvastatin 20 mg tablet 20 mg PO BEDTIME 30 days #30 tabs 10/22/23 Disposable bed pads #3 ea 11/27/23 Disposable tiesha-pads #3 ea 11/27/23 diaper,brief,adult,disposable #100 ea 11/27/23 losartan 50 mg tablet 50 mg PO DAILY #90 tabs 12/12/23 dulaglutide 0.75 mg/0.5 mL 0.75 mg (0.5 mL) subcut QWEEK #2 mL 12/13/23 subcutaneous pen injector (Trulicity) carvedilol 6.25 mg tablet 6.25 mg PO BID #60 tabs 12/17/23 Raised toilet seat with arms #1 ea 01/01/24 gabapentin 400 mg capsule 400 mg PO BID #180 caps 01/07/24 blood sugar diagnostic (OneTouch #100 ea 01/14/24 Ultra Test strips) meclizine 25 mg tablet (Motion 25 mg PO DAILY PRN motion sickness 04/08/24 Sickness Relief (meclizine)) #14 tabs omeprazole 20 mg capsule,delayed 20 mg PO DAILY #90 caps 05/11/24 release tramadol 50 mg tablet 50 mg PO Q6H #60 tabs 05/19/24 Allergies Allergy/AdvReac Type Severity Reaction Status Date / Time Iodinated Contrast Media Allergy Unknown UNKNOWN Verified 06/03/24 19:08 [IV CONTRAST] Review of Systems 2 Review of Systems: Yes all other systems are reviewed and are negative [facility] Past Medical History Medical History Diabetic nephropathy with proteinuria Hyperlipidemia HTN (hypertension) IBS (irritable bowel syndrome) Prolapsed internal hemorrhoids Chronic kidney disease, stage III (moderate) Obesity (BMI 30-39.9) Mixed hyperlipidemia Hypertensive heart disease Left bundle branch block Bladder prolapse Diabetes mellitus GERD (gastroesophageal reflux disease) Surgical History History of bladder repair surgery History of ERCP History of bilateral cataract extraction History of cholecystectomy History of excision of mass History of colonoscopy History of ankle surgery Family History Family History Father No problems noted. Mother No problems noted. Family/Other Lung cancer Esophagus cancer Other Mental health disorder Substance use disorder Social History Social History Household Members: Family Housing: House Do you presently have visiting nurse or other home services: Yes (every 6 months) Alcohol intake: never Patient Tobacco Use Status: Former Tobacco user e-Cigarette/Vaping Use: Never Used Second Hand Smoke Exposure: No Advance Directives Date on File: 04/19/23 service: No Current occupational status: disabled Cognitive needs: Yes (cane/walker) Hearing needs: No Vision needs: Yes (glasses) Physical Exam ED Vital Signs: Vital Signs - 24 hr 06/03/24 19:05 06/03/24 22:24 06/03/24 23:05 Temperature 97.7 F 97.7 F Pulse Rate 81 85 85 Respiratory Rate 16 16 16 Blood Pressure 132/46 L 147/51 H 147/51 H Pulse Oximetry 96 97 97 Oxygen Delivery Method Room Air Room Air Room Air BMI result Body Mass Index 26.8 Const Other: The patient is an 88-year-old woman who was awake and alert and does not seem in obvious distress. She did not have any obvious signs of a neurological deficit. She did not seem in obvious acute pain or any respiratory difficulty. She was pleasant cooperative. HENMT Other: Face is symmetrical. Mucous membranes moist. Tongue is midline. tympanic membranes are normal bilaterally. Eyes Other: Pupils are round equal and reactive to light, extraocular movements are intact, no nystagmus, conjunctivae are clear. Neck Neck: Yes full ROM, Yes no lymphadenopathy and Yes no JVD Resp Effort & Inspection: normal respiratory effort Auscultation: clear to auscultation bilaterally Cardio Rate: regular rate Rhythm: regular rhythm Heart sounds: S1 normal heart sound present and S2 normal heart sound present GI Other: The abdomen is soft and nontender Skin Other: the skin is dry and unremarkable. Neuro Other: The patient is awake and alert with normal mental status. She is oriented and appropriate. Pupils are round, equal, reactive to light, extraocular movements are intact without nystagmus, the face is symmetrical, speech is clear and appropriate, neck is supple, strength is 5/5 in all 4 extremities. There is no pronator drift. Finger-nose is normal bilaterally. She was able to ambulate steadily with a walker. Extrem Other: No peripheral edema, no calf swelling or tenderness or asymmetry Medications Administered Discontinued Medications Generic Name Dose Route Start Last Admin Trade Name Elba PRN Reason Stop Dose Admin Acetaminophen 975 mg 06/03/24 20:52 06/03/24 21:33 Acetaminophen 325 Mg Tablet PO 06/03/24 20:53 975 mg ONCE ONE Administration Sodium Chloride 500 mls @ 500 mls/hr 06/03/24 21:00 06/03/24 22:59 Ns IV 06/03/24 21:59 Infused .Q1H RAMIN Infusion Medical Decision Making Medical Decision Making [facility] Narrative: the patient is an 88-year-old woman who experienced a headache associated with some dizziness. The symptoms have resolved. The description of the episode does not sound highly suggestive of a TIA. The description of the symptoms is quite nonspecific. The patient Has an NIH stroke scale of 0. She has a chronically elevated troponin which is not rising. She has a chronically abnormal EKG which is no different from previous. her head CT shows no hemorrhage and no signs of obvious ischemia. The reading of the head CT indicated mild increase in ventricular low megaly, a nonspecific finding. This raises the possible question of normal pressure hydrocephalus but there does not seem to be any history of incontinence the patient seems to be ambulating and what I believe is her baseline. My overall impression is that the patient's presentation today is fairly nonspecific and that she looks quite well. She was eager to go home because she was feeling better. She is not hypertensive. I think she may go home to follow-up with her PCP or return if worse. Lab Data 06/03/24 19:40 06/03/24 19:40 Labs: Lab Results 06/03/24 06/03/24 Range/Units 19:40 21:47 WBC 6.8 (4.8-10.8) X10*3/uL RBC 3.17 L (4.20-5.50) X10*6/uL Hgb 9.3 L (12.0-16.0) g/dl Hct 28.5 L (37.0-47.0) % MCV 89.9 (80.0-98.0) fL MCH 29.3 (27.0-33.0) pg MCHC 32.6 (31.0-35.0) g/dl RDW 12.9 (11.0-16.0) % Plt Count 205 (160-400) X10*3/uL MPV 10.4 (9.4-12.3) fL Immature Gran % (Auto) 0.3 (0.0-0.4) % Neut % (Auto) 77.1 H (45-73) % Lymph % (Auto) 15.2 L (20-40) % [place] % (Auto) 6.1 (2-11) % Eos % (Auto) 1.2 (0-4) % Baso % (Auto) 0.1 (0-2) % Lymph # (Auto) 1.0 L (1.2-4.9) X10*3/uL [place] # (Auto) 0.4 (0.1-1.2) X10*3/uL Eos # (Auto) 0.1 (0.0-0.4) X10*3/uL Baso # (Auto) 0.0 (0.0-0.2) X10*3/uL Abs Immat Gran (auto) 0.02 (0.00-0.03) X10*3/uL Absolute Neuts (auto) 5.2 (2.0-8.3) x10*3/uL Absolute Nucleated RBC 0.000 (0.0-0.012) X10*3/uL Nucleated RBC % (auto) 0.0 (0.0-0.2) /100WBC Sodium 139 (135-145) mmol/L Potassium 5.4 H (3.3-5.1) mmol/L Chloride 110 H (96-108) mmol/L Carbon Dioxide 26 (22-29) mmol/L Anion Gap 8 L (12-20) BUN 18 H (9-16) mg/dL Creatinine 1.08 (0.5-1.4) mg/dL Estim Creat Clear Calc 34.7 Estimated GFR 48 Random Glucose 263 H (60-115) mg/dL Calcium 8.8 (8.4-10.2) mg/dL Magnesium 1.9 (1.6-2.6) mg/dL Total Bilirubin 0.3 (0.0-1.0) mg/dL AST 31 (5-31) U/L ALT 16 (0-31) U/L Alkaline Phosphatase 111 (39-117) U/L Troponin I High Sens 95.0 H* 91.0 H* (<3.5-17.0) ng/L Total Protein 6.9 (6.5-8.0) g/dL Albumin 3.7 (3.5-5.0) g/dL Lipase 16 (8-78) U/L Independent Interpretation I performed an independent interpretation of an: EKG Interpretation: EKG at 20:09 shows normal sinus rhythm at 83 beats per minute. There is an old left bundle branch block. No significant change from previous EKG. Discharge Plan Discharge Clinical Impression: Headache, Dizziness Patient Disposition: Home, Self-Care Additional Instructions: Please continue your regular medications. Please call your doctor's office in the morning for a follow up appointment to discuss this episode further. Please use your walker at home to help you get around. Return to the emergency room if you feel significantly worse Prescriptions: No Action (DME) blood pressure monitor [Blood Pressure Kit] Kit See Rx Instructions .ROUTE .MEDSUPPLY Qty: 1 0RF Rx Instructions: As directed (DME) bedside commode Kit See Rx Instructions .Route Qty: 1 0RF Rx Instructions: As directed (DME) blood-glucose meter [OneTouch Ultra2 Meter] Misc See Rx Instructions .Route Qty: 1 0RF Rx Instructions: test 3 times daily (DME) lancets [OneTouch UltraSoft 2 Lancet] 30 gauge misc See Rx Instructions .Route Qty: 100 12RF Rx Instructions: test 3 times per day insulin glargine U-300 conc [Toujeo SoloStar U-300 Insulin] 300 unit/mL (1.5 mL) insulin pen 20 unit subcut BEDTIME 30 Days Qty: 4.5 0RF (DME) body wipes See Rx Instructions .Route .MEDSUPPLY Qty: 1 3RF Rx Instructions: As directed aspirin 81 mg tablet,delayed release (DR/EC) 81 mg PO DAILY 90 Days Qty: 90 3RF Rx Instructions: Take 1 tablet daily to help your heart. atorvastatin 20 mg tablet 20 mg PO BEDTIME 30 Days Qty: 30 5RF Rx Instructions: Cholesterol-lowering agent. (DME) diaper,brief,adult,disposable Misc See Rx Instructions .Route Qty: 100 0RF Rx Instructions: As directed (DME) Disposable tiesha-pads See Rx Instructions .Route .MEDSUPPLY Qty: 3 3RF Rx Instructions: As directed (DME) Disposable bed pads See Rx Instructions .Route .MEDSUPPLY Qty: 3 3RF Rx Instructions: As directed losartan 50 mg tablet 50 mg PO DAILY Qty: 90 4RF Trulicity 0.75 mg/0.5 mL pen injector 0.75 mg subcut QWEEK Qty: 2 4RF carvedilol 6.25 mg tablet 6.25 mg PO BID Qty: 60 4RF Rx Instructions: must administer with a meal/food - Dose increased (DME) Raised toilet seat with arms See Rx Instructions .Route .MEDSUPPLY Qty: 1 0RF Rx Instructions: As directed gabapentin 400 mg capsule 400 mg PO BID Qty: 180 4RF (DME) OneTouch Ultra Test Strip See Rx Instructions .Route Qty: 100 11RF Rx Instructions: test 3 times per day meclizine [Motion Sickness Relief(mecliz)] 25 mg tablet 25 mg PO DAILY PRN (Reason: motion sickness) Qty: 14 0RF omeprazole 20 mg capsule,delayed release(DR/EC) 20 mg PO DAILY Qty: 90 0RF tramadol 50 mg tablet 50 mg PO Q6H Qty: 60 0RF epinephrine [EpiPen 2-Mariano] 0.3 mg/0.3 mL auto-injector 0.3 mg IM Q10M PRN (Reason: anaphylaxis) Qty: 1 0RF Rx Instructions: for 2 doses tolterodine 4 mg capsule,extended release 24hr 4 mg PO DAILY fluticasone propionate [Allergy Relief (fluticasone)] 50 mcg/actuation spray,suspension 2 spray intranasal DAILY Qty: 16 3RF Rx Instructions: administer into each nostril Myrbetriq 50 mg tablet extended release 24 hr 50 mg PO DAILY Referrals: Rico Deras MD [Primary Care Provider] - (headache, dizziness) Interventions: ED Discharge Assessment Last Done: 06/03/24 23:05 Discharge Date/Time: 06/03/24 23:05 Print Language: Latvian
[2024-06-03] MEDS: Acetaminophen 325 MG TABLET 975 MG PO (21:33)
[2024-06-03] MEDS: 0.9 % Sodium Chloride 500 ML IV (21:33)
[2024-06-03 22:24] VITALS: BP 147/51; PULSE 85; RESP 16; O2SAT 97
[2024-06-03 23:05] VITALS: BP 147/51; PULSE 85; RESP 16; TEMP 36.5; O2SAT 97
== END 2024-06-03 23:05 | disposition home or self-care (01) ==
PROVIDERS: Emergency Provider Emergency Medicine; PCP Internal Medicine
DX: R51.9 Headache, unspecified (principal); R42 Dizziness and giddiness; I12.9 Hypertensive chronic kidney disease with stage 1 through stage 4 chronic kidney disease, or unspecified chronic kidney disease; E11.22 Type 2 diabetes mellitus with diabetic chronic kidney disease; N18.30 Chronic kidney disease, stage 3 unspecified
CPT/HCPCS: 36415; 70450; 80053; 83690; 83735; 84484; 85025; 93005; 96360; 99284; 99285

== ENCOUNTER → 2024-06-03 20:09 | Outpatient (BNV) | payer OTHER, SELFPAY | PROVIDERS: Emergency Provider Emergency Medicine; PCP Internal Medicine; Visit Provider Internal Medicine Cardiovascular Disease | DX: I44.7 Left bundle-branch block, unspecified (principal) | CPT/HCPCS: 93010 ==

== ENCOUNTER → 2024-06-03 20:50 | Outpatient (BNV) | payer OTHER, SELFPAY | PROVIDERS: Emergency Provider Emergency Medicine; PCP Internal Medicine; Visit Provider Radiology Neuroradiology | DX: R51.9 Headache, unspecified (principal) | CPT/HCPCS: 70450 ==

== ENCOUNTER 2024-08-13 11:05 | Outpatient (AMB) | payer OTHER, SELFPAY ==
--- NOTE | 2024-08-13 11:06 | A.OFFVIS_ITS ---
Vital Signs 08/13/24 11:15 Height 5 ft 4 in Weight 155 lb BMI 26.6 BP 185/74 H Blood Pressure Location Rt brachial Position Sitting Pulse 90 Intake Visit Reasons: Prolapsed internal hemorrhoids Intake Note: Patient scheduled today's appointment c/o prolapsed internal hemorrhoids. Patient c/o: diarrhea. Denies bleeding after BM. Colonoscopy~ Dr. Bob: 03-19-2023 Of note: patient felt a little dizzy. Stated did not have breakfast this morning. Reports no allergies to food. I provided a 100 calorie pastry blueberry crisp. She was very thankful. Interventional Pain Physician Required: Yes Accompanied by: daughter Renay Ramsey Allergies Iodinated Contrast Media [IV CONTRAST] Allergy (Unknown, Verified 08/13/24 11:13) UNKNOWN Medication List - Last Reconciled 08/13/24 by Adam Goins MD [Adult pull ups As directed] aspirin 81 mg PO DAILY 90 days atorvastatin 20 mg PO BEDTIME 30 days blood pressure monitor (Blood Pressure Kit) As directed blood sugar diagnostic (Starbucks Ultra Test strips) test 3 times per day blood-glucose meter (Starbucks Ultra2 Meter) test 3 times daily [body wipes As directed] carvedilol 6.25 mg PO BID commode (bedside commode) As directed diaper,brief,adult,disposable As directed size mediun [Disposable bed pads As directed] [Disposable tiesha-pads As directed] dulaglutide (Trulicity) 0.75 mg (0.5 mL) subcut QWEEK epinephrine (EpiPen 2-Mariano) 0.3 mg (0.3 mL) IM Q10M PRN fluticasone propionate 50 mcg/actuation (Allergy Relief (fluticasone)) 2 sprays intranasal DAILY gabapentin 400 mg PO BID insulin glargine U-300 conc (Toujeo SoloStar U-300 Insulin) 20 units (0.0667 mL) subcut BEDTIME 30 days lancets (Starbucks UltraSoft 2 Lancet) test 3 times per day losartan 50 mg PO DAILY meclizine (Motion Sickness Relief (meclizine)) 25 mg PO DAILY PRN mirabegron ER (Myrbetriq) 50 mg PO DAILY omeprazole 20 mg PO DAILY [Raised toilet seat with arms As directed] tolterodine ER 4 mg PO DAILY tramadol 50 mg PO BID PRN HPI HPI Prolapsed internal hemorrhoids: Details: [age] year old female referred for problematic hemorrhoids. She describes frequent prolapse of her hemorrhoids were significant discomfort. She does have a long history of diarrhea and this seems to be aggravating this problem. She says her pain and discomfort are worse whenever she has watery stools. She often has multiple bowel movements every day. She denies any bleeding. Review of her records show that she had rubber band ligation of an internal hemorrhoidal column in 2022. She says she did well after that but because of her diarrhea, she describes recurrence of prolapse of other hemorrhoids. [facility] Medical History (Updated 08/13/24 @ 11:38 by Adam Goins MD) Prolapsed hemorrhoids Diabetic nephropathy with proteinuria Hyperlipidemia HTN (hypertension) IBS (irritable bowel syndrome) Prolapsed internal hemorrhoids Chronic kidney disease, stage III (moderate) Obesity (BMI 30-39.9) Mixed hyperlipidemia Hypertensive heart disease Left bundle branch block Bladder prolapse Diabetes mellitus GERD (gastroesophageal reflux disease) Surgical History History of bladder repair surgery History of ERCP History of bilateral cataract extraction History of cholecystectomy History of excision of mass History of colonoscopy History of ankle surgery Family History Father No problems noted. Mother No problems noted. Family/Other Lung cancer Esophagus cancer Other Mental health disorder Substance use disorder Social History Household Members: Family Housing: House Do you presently have visiting nurse or other home services: Yes (every 6 months) Alcohol intake: never Patient Tobacco Use Status: Former Tobacco user e-Cigarette/Vaping Use: Never Used Second Hand Smoke Exposure: No Advance Directives Date on File: 04/19/23 service: No Current occupational status: disabled Cognitive needs: Yes (cane/walker) Hearing needs: No Vision needs: Yes (glasses) Review of Systems Const Denies chills and Denies fever(s) Card Denies chest pain Resp Denies cough GI Denies abdominal pain, Denies hematochezia and Reports diarrhea Denies hematuria Physical Exam Vital Signs: Last Vital Signs Pulse 90 08/13/24 11:15 BP 185/74 H 08/13/24 11:15 BMI result Body Mass Index 26.6 Const Other: Frail looking, uses a cane General: comfortable and no acute distress Resp Effort & Inspection: normal respiratory effort Cardio Rate: regular rate GI Other: Rectal exam shows small external hemorrhoids with some prolapse of internal hemorrhoids in 1 area Palpation (GI): Soft to palpation Office Procedures Anoscopy She was in healing caro-knife position. The anoscope was gently inserted a full examination of the anal canal was done. There was 1 internal hemorrhoidal column that appears to be large and prolapsing easily, and this seems to be on the posterior area. There is no lesions seen or any ulceration. [id number] Assessment & Plan Assessment & Plan (1) Prolapsed hemorrhoids: Code(s): K64.8 - Other hemorrhoids Category: Medical Plan: She has a prolapsing internal hemorrhoidal column with significant discomfort. I explained to her that we can do rubber band ligation for this again. I will schedule him for this in the office. She understands the technique of this procedure as she had this done 2 years ago I also recommended for her to have a follow up with her pony rougher in view of her chronic diarrhea. This is apparently aggravating her hemorrhoid issues. In the meantime, I did advise her to continue taking Imodium up to 3 times a day to help with her chronic diarrhea. Coding Level of Care Code Est Pt Level 3 (33725) Diagnoses Prolapsed hemorrhoids K64.8 CPT Codes Details - CPT: 42179-[id number] ([id number])
[2024-08-13 11:15] VITALS: BP 185/74; PULSE 90; BMI 26.6
--- OUTSIDE RECORDS SUMMARY | 2024-08-13 12:18 | XMS_ITS | Encounter Summary ---
Author Organization [facility] Address [address] [place] [address] Care Team Providers Care Deputy Jailer Name Role Phone Joe Mcneal MD Primary Care Provider [phone] Joe Mcneal MD Primary Care Provider [phone] [facility], Pcp Primary Care Provider UnavailJoe Shore MD Primary Care Provider [phone] [facility], Pcp Primary Care Provider Jena hernandez Encounter Details Date Type Department Care Team Description 08/30/2016 Refill Nephrology - [address] [id number] Kenneth Martinez MD [address] [place] [address] [id number] Social History Tobacco Use Types Packs/Day Years Used Date Smoking Tobacco: Former Cigarettes 0.3 58 0 04/01/1949 - 04/01/2007 Alcohol Use Standard Drinks/Week Comments Not Asked 0 (1 standard drink = 0.6 oz pur e alcohol) Sex Assigned at Date Recorded Not on file documented as of this encounter Plan of Treatment Not on file documented as of this encounter Visit Diagnoses Not on filedocumented in this encounter Care Teams Deputy Jailer Relationship Specialty Start Date End Date Joe Mcneal MD [address] [place] [address] [phone] PCP - General Internal Medicine 07/02/14 02/03/17 Joe Mcneal MD [address] [place] [address] 95449 PCP - General Internal Medicine 02/04/17 03/09/18 [facility], Pcp [address] [place] [address] 89398 PCP - General Internal Medicine 03/10/18 11/10/18 Joe Mcneal MD [address] [place] [address] 36851 PCP - General Internal Medicine 11/11/18 07/10/21 [facility], Pcp [address] [place] [address] 55913 PCP - General Internal Medicine 07/11/21 documented as of this encounter
--- OUTSIDE RECORDS SUMMARY | 2024-08-13 12:18 | XMS_ITS | Encounter Summary ---
Author Organization [facility] Address [address] [place] [address] Care Team Providers Care Apparel Sales Leader Name Role Phone Joe Mcneal MD Primary Care Provider [phone] Joe Mcneal MD Primary Care Provider [phone] [facility], Pcp Primary Care Provider Unavailabl e Joe Mcneal MD Primary Care Provider [phone] [facility], [facility] Primary Care Provider Unavailabl e Reason for Visit * Reason Onset Date Comments refill request 12/20/2014 Encounter Details Date Type Department Care Team Description 12/20/2014 Refill Adult Medicine [address] [id number] Joe Mcneal MD [address] [place] [address] [phone] refill request Social History Tobacco Use Types Packs/Day Years Used Date Smoking Tobacco: Former Cigarettes 0.3 58 0 04/01/1949 - 04/01/2007 Alcohol Use Standard Drinks/Week Comments Not Asked 0 (1 standard drink = 0.6 oz pur e alcohol) Sex Assigned at Date Recorded Not on file documented as of this encounter Miscellaneous Notes * Telephone Encounter - Joe Mcneal MD - 12/21/2014 11:55 AM EDT Can we schedule pt with me at my next open slot at 11:45 on * Telephone Encounter - Mary Kay MaciasPJorgeNJorge - 12/20/2014 1:52 PM EDT No narcotic contract. Last written 11.16.15 #56 * Telephone Encounter - Crystal Thomson - 12/20/2014 12:33 PM EDT Patient would like script to be: E-PRESCRIBED/FAXED TO PHARMACY WHEN WAS THE PATIENT'S LAST APPOINTMENT IN ADULT MEDICINE? 12/20/14 WHEN WAS THE LAST TIME THE PATIENT SAW THEIR PCP? 10/06/14 Does patient have an upcoming appointment? Yes 05/23/15 (THE MEDICATION REQUESTED IS ON THE MED LIST ABOVE) All of the medications requested were on the CURRENT MEDS list Did you check the Pharmacy information above?: YES Patient wants: 30 -day supply Is this a mail order prescription request ? NO Patients current insurance carrier is: Payor: [facility] / Plan: O $0 [place] 148 / Product Type: HMO [id number] documented in this encounter Plan of Treatment Not on file documented as of this encounter Visit Diagnoses Not on filedocumented in this encounter Care Teams Apparel Sales Leader Relationship Specialty Start Date End Date Joe Mcneal MD [address] [place] [address] 78543 PCP - General Internal Medicine 07/02/14 02/03/17 Joe Mcneal MD [address] [place] [address] 13880 PCP - General Internal Medicine 02/04/17 03/09/18 [facility], Pcp [address] [place] [address] 42951 PCP - General Internal Medicine 03/10/18 11/10/18 Joe Mcneal MD [address] [place] [address] 65693 PCP - General Internal Medicine 11/11/18 07/10/21 [facility], Pcp [address] [place] [address] 46179 PCP - General Internal Medicine 07/11/21 documented as of this encounter
--- OUTSIDE RECORDS SUMMARY | 2024-08-13 12:18 | XMS_ITS | Encounter Summary ---
Author Organization [facility] Address [address] [place] [address] Care Team Providers Care Safety Admin Assistant Name Role Phone Joe Mcneal MD Primary Care Provider [phone] Joe Mcneal MD Primary Care Provider [phone] [facility], Pcp Primary Care Provider Joe Pagan MD Primary Care Provider [phone] [facility], Pcp Primary Care Provider Jena hernandez Encounter Details Date Type Department Care Team Description 10/10/2016 Tc Operator Report Medical Records [address] [place] [address] 15228 Darren Marshall II Social History Tobacco Use Types Packs/Day Years [...] on filedocumented in this encounter Care Teams Safety Admin Assistant Relationship Specialty Start Date End Date Joe Mcneal MD [address] [place] [address]20 PCP - General Internal Medicine 07/02/14 02/03/17 Joe Mcneal MD [address] [place] [address] 01020 PCP - General Internal Medicine 02/04/17 03/09/18 [facility], Pcp [address] [place] [address] PCP - General Internal Medicine 03/10/18 11/10/18 Joe Mcneal MD [address] [place] [address] PCP - General Internal Medicine 11/11/18 07/10/21 [facility], Pcp [address] [place] [address] PCP - General Internal Medicine 07/11/21 documented as of this encounter
--- OUTSIDE RECORDS SUMMARY | 2024-08-13 12:18 | XMS_ITS | Encounter Summary ---
Author Organization [facility] Address [address] [place] [address] Care Team Providers Care Health Information Internship Name Role Phone Joe Mcneal MD Primary Care Provider [phone] [facility], Pcp Primary Care Provider Unavailabl Joe Aguilar MD Primary Care Provider [phone] [facility], Pcp Primary Care Provider Jena hernandez Encounter Details Date Type Department Care Team Description 12/25/2017 Health Physicist Report Medical Records [address] [place] [address] Dez Marshall Social History Tobacco Use Types Packs/Day Years Used Date Smoking Tobacco: Former Cigarettes 0.3 58 0 [birth year]01/1949 - 04/01/2007 Smokeless Tobacco: Former Alcohol Use Standard Drinks/Week Comments Not Asked 0 (1 standard drink = 0.6 oz pur e alcohol) Sex Assigned at Date Recorded Not on file documented as of this encounter Plan of Treatment Not on file documented as of this encounter Visit Diagnoses Not on filedocumented in this encounter Care Teams Health Information Internship Relationship Specialty Start Date End Date Joe Mcneal MD [address] [place] [address] [phone] PCP - General Internal Medicine 02/04/17 03/09/18 [facility], Pcp [address] [place] [address] 90050 PCP - General Internal Medicine 03/10/18 11/10/18 Joe Mcneal MD [address] [place] [address] 90956 PCP - General Internal Medicine 11/11/18 07/10/21 [facility] Include [facility], Pcp [address] [place] [address] PCP - General Internal Medicine 07/11/21 documented as of this encounter
--- OUTSIDE RECORDS SUMMARY | 2024-08-13 12:18 | XMS_ITS | Encounter Summary ---
Author Organization [facility] Address [address] [place] [address] Care Team Providers Care Printed Circuit Board Pcb Draftsman Name Role Phone Joe Mcneal MD Primary Care Provider [phone] Joe Mcneal MD Primary Care Provider [phone] [facility], Pcp Primary Care Provider Joe Pagan MD Primary Care Provider [phone] [facility], Pcp Primary Care Provider Jena hernandez Encounter Details Date Type Department Care Team Description 06/18/[address] [address] Ruthie Tam PA Social History Tobacco Use Types Packs/Day Years Used Date Smoking Tobacco: Former Cigarettes 0.3 58 0 04/01/1949 - 04/01/2007 Alcohol Use Standard Drinks/Week Comments Not Asked 0 (1 standard drink = 0.6 oz pur e alcohol) Sex Assigned at Date Recorded Not on file documented as of this encounter Miscellaneous Notes * Telephone Encounter - Angie Ricci M.A. - 06/20/2016 8:58 AM EDT Message left for patient to return my call. * Telephone Encounter - Ruthie Sandoval PA-C - 06/20/2016 8:18 AM EDT Please call patient again to book appt for ER follow-up. * Telephone Encounter - Angie Ricci M.A. - 06/18/2016 1:18 PM EDT Message left for patient to return my call. * Telephone Encounter - Ruthie Sandoval PA-C - 06/18/2016 12:28 PM EDT Patient did not show up for ER follow-up today and she needs to be seen for additional work-up. Please call patient to schedule appoint. documented in this encounter Plan of Treatment Not on file documented as of this encounter Visit Diagnoses Not on filedocumented in this encounter Care Teams Printed Circuit Board Pcb Draftsman Relationship Specialty Start Date End Date Joe Mcneal MD [address] [place] [address] 26198 PCP - General Internal Medicine 07/02/14 02/03/17 Joe Mcneal MD [address] [place] [address] 17878 PCP - General Internal Medicine 02/04/17 03/09/18 [facility], Pcp [address] [place] [address] 74836 PCP - General Internal Medicine 03/10/18 11/10/18 Joe Mcneal MD [address] [place] [address]17 PCP - General Internal Medicine 11/11/18 07/10/21 [facility], Pcp [address] [place] [address] [place] [address] PCP - General Internal Medicine 07/11/21 documented as of this encounter
--- OUTSIDE RECORDS SUMMARY | 2024-08-13 12:18 | XMS_ITS | Encounter Summary ---
Author Organization [facility] Address [address] [place] [address] Care Team Providers Care Reinsurance Analyst Name Role Phone Joe Mcneal MD Primary Care Provider [phone] Joe Mcneal MD Primary Care Provider [phone] [facility], Pcp Primary Care Provider Joe Pagan MD Primary Care Provider [phone] [facility], Pcp Primary Care Provider Jena hernandez Encounter Details Date Type Department Care Team Description 10/29/2014 Pt. Referral Request [facility] [place] [address] [place] [address] [phone] Md Althea Social History Tobacco Use Types Packs/Day Years Used Date Smoking Tobacco: Former Comments:quit x 3 months ago Alcohol Use Standard Drinks/Week Comments Not Asked 0 (1 standard drink = 0.6 oz pur e alcohol) Sex Assigned at Date Recorded Not on file documented as of this encounter Plan of Treatment Not on file documented as of this encounter Visit Diagnoses Not on filedocumented in this encounter Care Teams Reinsurance Analyst Relationship Specialty Start Date End Date Joe Mcneal MD [address] [place] [address] [phone] PCP - General Internal Medicine 07/02/14 02/03/17 Joe Mcneal MD [address] [place] [address] [phone] PCP - General Internal Medicine 02/04/17 03/09/18 [facility], Pcp [address] [place] [address] PCP - General Internal Medicine 03/10/18 11/10/18 Joe Mcneal MD [address] [place] [address] PCP - General Internal Medicine 11/11/18 07/10/21 [facility], Pcp [address] [place] [address] PCP - General Internal Medicine 07/11/21 documented as of this encounter
--- OUTSIDE RECORDS SUMMARY | 2024-08-13 12:18 | XMS_ITS | Encounter Summary ---
Author Organization [facility] Address [address] [place] [address] Care Team Providers Care Scale Reclamation Tender Name Role Phone Joe Mcneal MD Primary Care Provider [phone] Joe Mcneal MD Primary Care Provider [phone] [facility], Pcp Primary Care Provider Unavailabl e Joe Mcneal MD Primary Care Provider [phone] [facility], [facility] Primary Care Provider Unavailabl e Reason for Visit * Reason Onset Date Comments Faxed Order 11/02/2014 Encounter Details Date Type Department Care Team Description 11/02/2014 Telephone Adult [address] [phone] Joe Mcneal MD [address] [place] [address] [phone] Faxed Order Social History Tobacco Use Types Packs/Day Years Used Date Smoking Tobacco: Former Comments:quit x 3 months ago Alcohol Use Standard Drinks/Week Comments Not Asked 0 (1 standard drink = 0.6 oz pur e alcohol) Sex Assigned at Date Recorded Not on file documented as of this encounter Miscellaneous Notes * Telephone Encounter - Elle Rizo - 11/02/2014 9:32 AM EDT Plan of care for Dr Mcneal's signature documented in this encounter Plan of Treatment Not on file documented as of this encounter Visit Diagnoses Not on filedocumented in this encounter Care Teams Scale Reclamation Tender Relationship Specialty Start Date End Date Joe Mcneal MD [address] [place] [address] 58863 PCP - General Internal Medicine 07/02/14 02/03/17 Joe Mcneal MD [address] [place] [address] 19695 PCP - General Internal Medicine 02/04/17 03/09/18 [facility], Pcp [address] [place] [address] 05969 PCP - General Internal Medicine 03/10/18 11/10/18 Joe Mcneal MD [address] [place] [address] 75518 PCP - General Internal Medicine 11/11/18 07/10/21 [facility], Pcp [address] [place] [address] 34413 PCP - General Internal Medicine 07/11/21 documented as of this encounter
--- OUTSIDE RECORDS SUMMARY | 2024-08-13 12:18 | XMS_ITS | Encounter Summary ---
Author Organization [facility] Address [address] [place] [address] Care Team Providers Care Web Designer Name Role Phone Joe Mcneal MD Primary Care Provider [phone] Joe Mcneal MD Primary Care Provider [phone] Replaced By [facility], Pcp Primary Care Provider UnavailJoe Shore MD Primary Care Provider [phone] Replaced By [facility], Pcp Primary Care Provider Jena hernandez Encounter Details Date Type Department Care Team Description 12/23/2014 Supervisor Costuming Report Medical Records [address] [place] [address] Jolene Goff MD Social History Tobacco Use Types Packs/Day Years [...] on filedocumented in this encounter Care Teams Web Designer Relationship Specialty Start Date End Date Joe Mcneal MD [address] [place] [address] PCP - General Internal Medicine 07/02/14 02/03/17 Joe Mcneal MD [address] [place] [address] 01020 PCP - General Internal Medicine 02/04/17 03/09/18 Replaced By [facility], Pcp [address] [place] [address] PCP - General Internal Medicine 03/10/18 11/10/18 Joe Mcneal MD [address] [place] [address] PCP - General Internal Medicine 11/11/18 07/10/21 Replaced By [facility], Pcp [address] [place] [address] PCP - General Internal Medicine 07/11/21 documented as of this encounter
--- OUTSIDE RECORDS SUMMARY | 2024-08-13 12:18 | XMS_ITS | Encounter Summary ---
Author Organization [facility] Address [address] [place] [address] Care Team Providers Care Repairer Veneer Sheet Name Role Phone Joe Mcneal MD Primary Care Provider [phone] Joe Mcneal MD Primary Care Provider [phone] [facility], Pcp Primary Care Provider Joe Pagan MD Primary Care Provider [phone] [facility], Pcp Primary Care Provider Jena hernandez Encounter Details Date Type Department Care Team Description 11/18/2014 JUNIOR SALES REPRESENTATIVE/[employer] Report Medical Records [address] [place] [id number] Abstract, Provider Social History Tobacco Use Types Packs/Day Years [...] on filedocumented in this encounter Care Teams Repairer Veneer Sheet Relationship Specialty Start Date End Date Joe Mcneal MD [address] [place] [address]20 PCP - General Internal Medicine 07/02/14 02/03/17 Joe Mcneal MD [address] [place] [address] [phone] PCP - General Internal Medicine 02/04/17 03/09/18 [facility], Pcp [address] [place] [address] PCP - General Internal Medicine 03/10/18 11/10/18 Joe Mcneal MD [address] [place] [address] 06584 PCP - General Internal Medicine 11/11/18 07/10/21 [facility], Pcp [address] [place] [address] 76837 PCP - General Internal Medicine 07/11/21 documented as of this encounter
--- OUTSIDE RECORDS SUMMARY | 2024-08-13 12:18 | XMS_ITS | Encounter Summary ---
Author Organization [facility] Address [address] [place] [address] Care Team Providers Care Tissue Packer Name Role Phone Joe Mcneal MD Primary Care Provider [phone] Joe Mcneal MD Primary Care Provider [facility], Pcp Primary Care Provider Joe Pagan MD Primary Care Provider [phone] [facility], Pcp Primary Care Provider Jena hernandez Encounter Details Date Type Department Care Team Description 03/08/2015 Pt. Referral Request Field [facility] [place] [address] [place] [address] [phone] Md Althea Social History Tobacco Use Types [...] on filedocumented in this encounter Care Teams Tissue Packer Relationship Specialty Start Date End Date Joe Mcneal MD [address] [place] [address] [phone] PCP - General Internal Medicine 07/02/14 02/03/17 Joe Mcneal MD [address] [place] [address] 95365 PCP - General Internal Medicine 02/04/17 03/09/18 [facility], Pcp [address] [place] [address] 06827 PCP - General Internal Medicine 03/10/18 11/10/18 Joe Mcneal MD [address] [place] [address] 18800 PCP - General Internal Medicine 11/11/18 07/10/21 [facility], Pcp [address] [place] [address] 93186 PCP - General Internal Medicine 07/11/21 documented as of this encounter
--- OUTSIDE RECORDS SUMMARY | 2024-08-13 12:18 | XMS_ITS | Encounter Summary ---
Author Organization [facility] Address [address] [place] [address] Care Team Providers Care Manager Labor Relations Name Role Phone Joe Mcneal MD Primary Care Provider [phone] [facility], Pcp Primary Care Provider UnavailJoe Shore MD Primary Care Provider [phone] [facility], Pcp Primary Care Provider Jena hernandez Encounter Details Date Type Department Care Team Description 01/16/2018 Refill Adult Medicine [address] [phone] Joe Mcneal MD [address] [place] [address] [phone] Social History Tobacco Use Types Packs/Day Years [...] on filedocumented in this encounter Care Teams Manager Labor Relations Relationship Specialty Start Date End Date Joe Mcneal MD [address] [place] [address] [phone] PCP - General Internal Medicine 02/04/17 03/09/18 [facility], Pcp [address] [place] [address] 27731 PCP - General Internal Medicine 03/10/18 11/10/18 Joe Mcneal MD [address] [place] [address] PCP - General Internal Medicine 11/11/18 07/10/21 [facility], Pcp [address] [place] [address] PCP - General Internal Medicine 07/11/21 documented as of this encounter
--- OUTSIDE RECORDS SUMMARY | 2024-08-13 12:19 | XMS_ITS | Encounter Summary ---
Author Organization [facility] Address [address] [place] [address] Care Team Providers Care Chute Tender Name Role Phone Joe Mcneal MD Primary Care Provider [phone] Joe Mcneal MD Primary Care Provider [phone] [facility], Pcp Primary Care Provider UnavailJoe Shore MD Primary Care Provider [phone] [facility], Pcp Primary Care Provider Jena hernandez Encounter Details Date Type Department Care Team Description 10/13/2014 Trust Advisor Report Medical Records [address] [place] [address] [id number] Jolene Goff MD Social History Tobacco Use [...] on filedocumented in this encounter Care Teams Chute Tender Relationship Specialty Start Date End Date Joe Mcneal MD [address] [place] [address] [phone] PCP - General Internal Medicine 07/02/14 02/03/17 Joe Mcneal MD [address] [place] [address] [phone] PCP - General Internal Medicine 02/04/17 03/09/18 [facility], Pcp [address] [place] [address] PCP - General Internal Medicine 03/10/18 11/10/18 Joe Mcneal MD [address] [place], [place] [phone] PCP - General Internal Medicine 11/11/18 07/10/21 [facility], Pcp [address] [place], [place] [phone] PCP - General Internal Medicine 07/11/21 documented as of this encounter
--- OUTSIDE RECORDS SUMMARY | 2024-08-13 12:19 | XMS_ITS | Encounter Summary ---
Author Organization [facility] Address [address] [place] [address] Care Team Providers Care Solution Design Engineer Name Role Phone Joe Mcneal MD Primary Care Provider [phone] Joe Mcneal MD Primary Care Provider [phone] [facility], Pcp Primary Care Provider Unavailabl e Joe Mcneal MD Primary Care Provider [phone] [facility], [facility] Primary Care Provider Unavailabl e Reason for Visit * Reason Onset Date Comments APPOINTMENT 09/30/2015 Appointment-Internal Referral 09/30/2015 Encounter Details Date Type Department Care Team Description 09/30/2015 Telephone OBGYN - [place] [facility] [phone] Eddie Harrison MD [address] [place] [address] [phone] APPOINTMENT; Appointment-Internal Referral Social History Tobacco Use Types Packs/Day Years Used Date Smoking Tobacco: Former Cigarettes 0.3 58 0 04/01/1949 - 04/01/2007 Alcohol Use Standard Drinks/Week Comments Not Asked 0 (1 standard drink = 0.6 oz pur e alcohol) Sex Assigned at Date Recorded Not on file documented as of this encounter Miscellaneous Notes * Telephone Encounter - Gregg Condon R.N. - 09/30/2015 4:30 PM EDT Attempted call to patient. Unable to leave VM, phone not in service at this time. Should patient return call, please schedule appointment for evaluation with provider of choice. JMDariusz * Telephone Encounter - Priscila Cee - 09/30/2015 3:25 PM EDT Patient has been referred by Dr. Mcnael due to: I will request a referral to ASSISTANT PROFESSOR IN FAMILY STUDIES. Site: [place] [facility] Reason for referral: lump between anus and vagina Priority: 1-2 weeks Payor: Not third-republican related No records for stock preparation operator received. documented in this encounter Plan of Treatment Not on file documented as of this encounter Visit Diagnoses Not on filedocumented in this encounter Care Teams Solution Design Engineer Relationship Specialty Start Date End Date Joe Mcneal MD [address] [place] [address] 27568 PCP - General Internal Medicine 07/02/14 02/03/17 Joe Mcneal MD [address] [place] [address] 24832 PCP - General Internal Medicine 02/04/17 03/09/18 [facility], Pcp [address] [place] [address] 44860 PCP - General Internal Medicine 03/10/18 11/10/18 Joe Mcneal MD [address] [place] [address] 46062 PCP - General Internal Medicine 11/11/18 07/10/21 [facility], Pcp [address] [place] [address] 23685 PCP - General Internal Medicine 07/11/21 documented as of this encounter
--- OUTSIDE RECORDS SUMMARY | 2024-08-13 12:19 | XMS_ITS | Encounter Summary ---
Author Organization [facility] Address [address] [place] [address] Care Team Providers Care Bundle Packer Name Role Phone [facility], Pcp Primary Care Provider Joe Pagan MD Primary Care Provider [phone] [facility], Pcp Primary Care Provider Jena hernandez Encounter Details Date Type Department Care Team Description 05/07/2018 Release of Information Medical Records [address] [place] [address] [id number] Abstract, Provider Social History Tobacco Use Types [...] on filedocumented in this encounter Care Teams Bundle Packer Relationship Specialty Start Date End Date [facility], Pcp PCP - General Internal Medicine 03/10/18 11/10/18 Joe Mcneal MD [address] [place] [address] [phone] PCP - General Internal Medicine 11/11/18 07/10/21 [facility], Pcp PCP - General Internal Medicine 07/11/21 documented as of this encounter
--- OUTSIDE RECORDS SUMMARY | 2024-08-13 12:19 | XMS_ITS | Encounter Summary ---
Author Organization [facility] Address [address] [place] [address] Care Team Providers Care Cooling Room Attendant Name Role Phone Joe Mcneal MD Primary Care Provider [phone] [facility], Pcp Primary Care Provider Unavailabl e Joe Mcneal MD Primary Care Provider [phone] [facility], Pcp Primary Care Provider Unavailabl e Reason for Visit * Reason Onset Date Comments Faxed Refill 04/08/2017 Encounter Details Date Type Department Care Team Description 04/08/2017 Refill Nephrology - [place] [address] [place] [address] Kenneth Martinez MD [address] [place] [address] [phone] Faxed Refill Social History Tobacco Use Types Packs/Day Years [...] on filedocumented in this encounter Care Teams Cooling Room Attendant Relationship Specialty Start Date End Date Joe Mcneal MD [address] [place] [address] [phone] PCP - General Internal Medicine 02/04/17 03/09/18 [facility], Pcp [address] [place] [address] PCP - General Internal Medicine 03/10/18 11/10/18 Joe Mcneal MD [address] [place] [address] 46070 PCP - General Internal Medicine 11/11/18 07/10/21 [facility], Pcp [address] [place] [address] 33110 PCP - General Internal Medicine 07/11/21 documented as of this encounter
--- OUTSIDE RECORDS SUMMARY | 2024-08-13 12:19 | XMS_ITS | Clinical Summary ---
Author Organization [employer] Address [address] [facility] [address] [place] [address] Care Team Providers Care Prepress Stripper Name Role Phone Unavailable Primary Care Provider Unavailabl e Immunizations Immunization Administration Dates Next Due Influenza High-dose Quadriva [...] patient's age to complete this topic Meningococcal B Vaccine Aged Out No l onger eligible based on patient's age to complete this topic Meningococcal Vaccine Aged Out No jaylin ishan eligible based on patient's age to complete this topic RSV under 20 months Aged Out No longe r eligible based on patient's age to complete this topic Rotavirus Vaccines Aged Out No longer eligible based on patient's age to complete this topic Insurance [facility] [employer] (HMO D-SNP) [employer] [id number]
--- OUTSIDE RECORDS SUMMARY | 2024-08-13 12:19 | XMS_ITS | Encounter Summary ---
Author Organization [facility] Address [address] [place] [address] Care Team Providers Care Professor Of Musicology Name Role Phone Joe Mcneal MD Primary Care Provider [phone] [facility], Pcp Primary Care Provider Unavailabl Joe Aguilar MD Primary Care Provider [phone] [facility], Pcp Primary Care Provider Jena hernandez Encounter Details Date Type Department Care Team Description 04/11/2017 Central Office Equipment Engineer Report Medical Records [address] [place] [address] [phone] Paz Philip FNP Social History Tobacco Use Types Packs/Day Years [...] on filedocumented in this encounter Care Teams Professor Of Musicology Relationship Specialty Start Date End Date Joe Mcneal MD [address] [place] [address] [phone] PCP - General Internal Medicine 02/04/17 03/09/18 [facility], Pcp [address] [place] [address] 32627 PCP - General Internal Medicine 03/10/18 11/10/18 Joe Mcneal MD [address] [place] [address] 31077 [phone] PCP - General Internal Medicine 11/11/18 07/10/21 [facility], Pcp [address] [place] [address] 89909 PCP - General Internal Medicine 07/11/21 documented as of this encounter
--- OUTSIDE RECORDS SUMMARY | 2024-08-13 12:19 | XMS_ITS | Encounter Summary ---
Author Organization [facility] Address [address] [place] [address] Care Team Providers Care Circular Knitter Helper Name Role Phone Joe Mcneal MD Primary Care Provider [phone] [facility], Pcp Primary Care Provider UnavailJoe Shore MD Primary Care Provider [phone] [facility], Pcp Primary Care Provider Jena hernandez Encounter Details Date Type Department Care Team Description 08/07/2017 Oyster Shucker Report Medical Records [address] [place] [address] 56993 Abstract, Provider Social History Tobacco Use Types [...] on filedocumented in this encounter Care Teams Circular Knitter Helper Relationship Specialty Start Date End Date Joe cMneal MD [address] [place] [address] 01020 PCP - General Internal Medicine 02/04/17 03/09/18 [facility], Pcp [address] [place] [address] 65123 PCP - General Internal Medicine 03/10/18 11/10/18 Joe Mcneal MD [address] [place] [address] [phone] PCP - General Internal Medicine 11/11/18 07/10/21 [facility], Pcp [address] [place] [address] 31871 PCP - General Internal Medicine 07/11/21 documented as of this encounter
--- OUTSIDE RECORDS SUMMARY | 2024-08-13 12:19 | XMS_ITS | Encounter Summary ---
Author Organization [facility] Address [address] [place] [address] Care Team Providers Care Check Processor Name Role Phone Joe Mcneal MD Primary Care Provider [phone] Joe Mcneal MD Primary Care Provider [phone] [facility], Pcp Primary Care Provider Joe Pagan MD Primary Care Provider [phone] [facility], Pcp Primary Care Provider Jena hernandez Encounter Details Date Type Department Care Team Description 12/21/2014 Orders Only Adult Medicine [address] [phone] Joe Mcneal MD [address] [place] [address] [phone] Social History Tobacco Use Types Packs/Day Years [...] on filedocumented in this encounter Care Teams Check Processor Relationship Specialty Start Date End Date Joe Mcneal MD [address] [place] [address] [phone] PCP - General Internal Medicine 07/02/14 02/03/17 Joe Mcneal MD [address] [place] [address] 42701 PCP - General Internal Medicine 02/04/17 03/09/18 [facility], Pcp [address] [place] [address] 77455 PCP - General Internal Medicine 03/10/18 11/10/18 Joe Mcneal MD [address] [place] [address] 97797 PCP - General Internal Medicine 11/11/18 07/10/21 [facility], Pcp [address] [place] [address] 63826 PCP - General Internal Medicine 07/11/21 documented as of this encounter
--- OUTSIDE RECORDS SUMMARY | 2024-08-13 12:19 | XMS_ITS | Encounter Summary ---
Author Organization [facility] Address [address] [place] [address] Care Team Providers Care Seamer Operator Name Role Phone Joe Mcneal MD Primary Care Provider [phone] [facility], Pcp Primary Care Provider UnavailJoe Shore MD Primary Care Provider [phone] [facility], Pcp Primary Care Provider Jena hernandez Encounter Details Date Type Department Care Team Description 05/27/2017 [facility] Medical Records [address] [place] [address] [id number] Abstract, Provider Social History Tobacco Use Types [...] on filedocumented in this encounter Care Teams Seamer Operator Relationship Specialty Start Date End Date Joe Mcneal MD [address] [place] [address] [phone] PCP - General Internal Medicine 02/04/17 03/09/18 [facility], Pcp [address] [place] [address] 05442 PCP - General Internal Medicine 03/10/18 11/10/18 Joe Mcneal MD [address] [place] [address] [phone] PCP - General Internal Medicine 11/11/18 07/10/21 [facility], Pcp [address] [place] [address] 67226 PCP - General Internal Medicine 07/11/21 documented as of this encounter
--- OUTSIDE RECORDS SUMMARY | 2024-08-13 12:19 | XMS_ITS | Clinical Summary ---
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 0 Active glucose blood test strips (FREESTYLE TEST STRIPS) strip Use to test BS twice daily 100 Each 3 06/07/2017 Active insulin aspart protamine-insulin aspart (NOVOLOG MIX 70/30) (70-30) 100 UNIT/ML injection INJECT 25 UNITS IN THE MORING AND 25 UNITS IN THE EVENING 60 mL 5 08/12/2017 Active omeprazole (PRILOSEC) 20 MG capsule TAKE 1 CAP BY MOUTH DAILY. 90 Cap 1 11/26/2017 Active simvastatin (ZOCOR) 5 MG tablet TAKE 1 TAB BY MOUTH AT BEDTIME. 30 Tab 5 12/04/2017 Active lisinopril (PRINIVIL,ZESTRIL) 30 MG tablet Take 1 Tab by mouth daily for 180 days. 30 Tab 5 01/02/2018 Active Insulin Syringe-Needle U-100 (B-D INS SYR ULTRAFINE 1CC/30G) 30G X 1/2 1 ML Misc Use to inject insulin 2 times daily 100 Each 0 01/03/2018 Active loratadine (CLARITIN) 10 MG tablet Take 1 Tab by mouth daily. 90 Tab 1 01/17/2018 Active tramadol (ULTRAM) 50 MG tablet Take 1 Tab by mouth 3 times daily. 84 Tab 0 02/18/2018 Active Meclizine HCl 25 MG Tab Take 1 Tab by mouth 2 times daily. 60 Tab 5 02/19/2018 Active sitagliptan (JANUVIA) 100 MG tablet Take 0.5 Tabs by mouth daily. 30 Tab 2 03/13/2018 Active amlodipine (NORVASC) 5 MG tablet TOME ADI TABLETA TODOS LOS RAZA 30 Tab 1 04/07/2018 Active PAIN RELIEF EXTRA STRENGTH 500 MG tabletIndications:Arth ritis TAKE 2 TABLETS BY MOUTH 3 TIMES DAILY. 180 Tab 0 05/20/2018 Active aspirin 81 MG EC tablet Take 1 Tab by mouth daily. 30 Tab 0 09/29/2018 Active aspirin 81 MG EC tablet TOME ADI TABLETA TODOS LOS RAZA 14 Tab 0 10/16/2018 Active tolterodine (DETROL LA) 4 MG 24 hr capsule TAKE 1 CAP BY MOUTH DAILY. 30 Cap 0 10/30/2018 Active Active Problems Problem Noted Date Onychomycosis 06/01/2015 Overactive bladder 05/26/2015 Proteinuria 08/30/2014 Overview: Microalbumin 647.8 on 07/05/2014 Type II or unspecified type diabetes mellitus with renal manifestations, not stated as uncontrolled 08/30/2014 Type 2 diabetes mellitus with eye manife stations Type 2 diabetes mellitus with diabetic n europathy Arthritis Hypertension Hyperlipidemia Immunizations Name Administration Dates Next Due Influenza (> 6 Months) 12/30/2012 Influenza vaccine high dose age 65 and over 05/2016,12/20/2014 Tdap 08/28/2012 Social History Tobacco Use Types Packs/Day Years Used Date Smoking Tobacco: Former Cigarettes 0.3 58 0 04/01/1949 - 04/01/2007 Smokeless Tobacco: Former Alcohol Use Standard Drinks/Week Comments Not Asked 0 (1 standard drink = 0.6 oz pur e alcohol) Sex Assigned at Date Recorded Not on file Last Filed Vital Signs Vital Sign Reading Time Taken Comments Blood Pressure 144/64 01/17/2018 11:08 AM EDT Pulse 96 01/17/2018 11:08 AM EDT Temperature 37.6 ??C (99.6 ??F) 01/17/2018 11:08 AM E DT Respiratory Rate 14 01/17/2018 11:08 AM EDT Oxygen Saturation - - Inhaled Oxygen Concentration - - Weight 83.5 kg (184 lb) 01/17/2018 11:08 AM EDT Height 160 cm (5' 3 ) 01/17/2018 11:08 AM EDT Body Mass Index 32.59 01/17/2018 11:08 AM EDT Plan of Treatment Health Maintenance Due Date Last Done Comments Covid-19 Vaccine (#1) 04/12/1936 SHINGLES VACCINE (1 of 2) 10/10/1985 BONE DENSITY SCREENING 10/10/2000 PNEUMOCOCCAL VACCINE (1 - PCV) 10/10/2000 MAMMOGRAM 06/01/2014 06/01/2013, 05/2013 (External Completion) DIABETES: ANNUAL FOOT EXAM 10/10/201710/10 (External Completion), 09/01/2015, 06/01/2015, Additional history exists DIABETES: BLOOD SUGAR CONTRO L TEST (HGBA1C) 04/19/2018 01/17/2018, 08/09/2017, 05/16/2017, Additional history exists DIABETES/HEART DISEASE: BRUCE AL CHOLESTEROL (LDL) 01/17/2019 01/17/2018, 12/31/2016, 04/10/2016, Additional history exists DIABETES: ANNUAL URINE PROTE IN TEST (MICROALBUMIN) 01/17/2019 01/17/2018, 05/16/2017, 12/31/2016, Additional history exists DIABETES: ANNUAL EYE EXAM 12/18/20192018, 11/15/2017, 10/26/2016, Additional history exists DTAP/TDAP/TD (2 - Td or Tdap) 08/28/2022 08/28/2012 BMI CHECK/ADVISE 04/01/2024 08/09/2017, , 08/03/2015, Additional history exists INFLUENZA (Season Ended) 2024 017, 12/20/2014, 12/30/2012 Care Teams Temperer Relationship Specialty Start Date End Date Community, Pcp PCP - General Internal Medicine 07/11/21
--- OUTSIDE RECORDS SUMMARY | 2024-08-13 12:19 | XMS_ITS | Encounter Summary ---
Author Organization [facility] Address [address] [place] [address] Care Team Providers Care Media Services Specialist Name Role Phone Joe Mcneal MD Primary Care Provider [phone] Joe Mcneal MD Primary Care Provider [phone] Count Includes [facility], Pcp Primary Care Provider Joe Pagan MD Primary Care Provider [phone] Count Includes [facility], Pcp Primary Care Provider Jena hernandez Encounter Details Date Type Department Care Team Description 12/21/2016 Manufacturers Service Representative Report Medical Records [address] [place] [address] [id number] Fredo Gunn MD Social History Tobacco Use Types Packs/Day [...] on filedocumented in this encounter Care Teams Media Services Specialist Relationship Specialty Start Date End Date Joe Mcneal MD [address] [place] [address] 01020 PCP - General Internal Medicine 07/02/14 02/03/17 Joe Mcneal MD [address] [place] [address] 01020 PCP - General Internal Medicine 02/04/17 03/09/18 Count Includes [facility], Pcp [address] [place] [address] PCP - General Internal Medicine 03/10/18 11/10/18 Joe Mcneal MD [address] [place] [address] PCP - General Internal Medicine 11/11/18 07/10/21 Count Includes [facility], Pcp [address] [place] [address] PCP - General Internal Medicine 07/11/21 documented as of this encounter
--- OUTSIDE RECORDS SUMMARY | 2024-08-13 12:19 | XMS_ITS | Encounter Summary ---
Author Organization [facility] Address [address] [place] [address] Care Team Providers Care Sewer Line Photo Inspector Name Role Phone Joe Mcneal MD Primary Care Provider [facility] Primary Care Provider Unavailabl e Joe Mcneal MD Primary Care Provider [phone] [facility] Primary Care Provider Unavailabl e Reason for Referral * Non IZZY (Routine) - Authorized/Booked Specialty Diagnoses / Procedures Referred By Tex montero Referred To Contact Dermatology Procedures REFERRAL TO DERMATOLOGY Joe Mcneal MD [address] [place] [id number] [address] [id number] Referral ID Status Reason Start Date Expiration Date V isits Requested Visits Authorized [id number] Authorized/B ooked 09/02/2017 09/02/2018 1 1 Reason for Visit * Reason Onset Date Comments Sports Teacher Feedback 09/02/2017 dermatology Encounter Details Date Type Department Care Team Description 09/02/2017 Telephone Adult [address] [id number] Joe Mcneal MD [address] [place] [address] Sports Teacher Feedback (dermatology) Social History Tobacco Use Types Packs/Day Years Used Date Smoking Tobacco: Former Cigarettes 0.3 58 0 [birth year]01/1949 - 04/01/2007 Smokeless Tobacco: Former Alcohol Use Standard Drinks/Week Comments Not Asked 0 (1 standard drink = 0.6 oz pur e alcohol) Sex Assigned at Date Recorded Not on file documented as of this encounter Miscellaneous Notes * Telephone Encounter - Joe Mcneal MD - 09/02/2017 11:48 AM EDT Referral signed * Telephone Encounter - Maryse Pedraza - 09/02/2017 11:[address] Joe Mcneal You have placed a referral for patient to see dermatology at [facility] for skin lesion knee please help with management. Unfortunately, their office does not accept this patient's health insurance. A new order has been pended to you. Please review this patient???s new referral request. The referral has been pended. Please complete the following: If approved> sign order If denied>please give instructions and route to your practice nursing pool. Practice nurse should inform referrals and the patient if denied. documented in this encounter Plan of Treatment Not on file documented as of this encounter Visit Diagnoses Not on filedocumented in this encounter Care Teams Sewer Line Photo Inspector Relationship Specialty Start Date End Date Joe Mcneal MD [address] [place] [id number] PCP - General Internal Medicine 02/04/17 03/09/18 [facility] [address] [place] [id number] PCP - General Internal Medicine 03/10/18 11/10/18 Joe Mcneal MD [address] [place] [address] PCP - General Internal Medicine 11/11/18 07/10/21 [facility] [address] [place] [phone] PCP - General Internal Medicine 07/11/21 documented as of this encounter
--- OUTSIDE RECORDS SUMMARY | 2024-08-13 12:19 | XMS_ITS | Encounter Summary ---
Author Organization [facility] Address [address] [place] [address] Care Team Providers Care Screw Machine Adjuster Automatic Name Role Phone Joe Mcneal MD Primary Care Provider [phone] Joe Mcneal MD Primary Care Provider [phone] [facility], Pcp Primary Care Provider Joe Pagan MD Primary Care Provider [phone] [facility], Pcp Primary Care Provider Jena hernandez Encounter Details Date Type Department Care Team Description 09/30/2015 Monitor Tech Report Medical Records [address] [place] [id number] Pat Meadows MD Social History Tobacco Use Types Packs/Day [...] on filedocumented in this encounter Care Teams Screw Machine Adjuster Automatic Relationship Specialty Start Date End Date Joe Mcneal MD [address] [place] [phone] PCP - General Internal Medicine 07/02/14 02/03/17 Joe Mcneal MD [address] [place] [phone] PCP - General Internal Medicine 02/04/17 03/09/18 [facility], Pcp [address] [place] [address] PCP - General Internal Medicine 03/10/18 11/10/18 Joe Mcneal MD [address] [place] [address] PCP - General Internal Medicine 11/11/18 07/10/21 [facility], Pcp [address] [place] [address] PCP - General Internal Medicine 07/11/21 documented as of this encounter
--- OUTSIDE RECORDS SUMMARY | 2024-08-13 12:19 | XMS_ITS | Encounter Summary ---
Author Organization [facility] Address [address] [place] [address] Care Team Providers Care Hospice Case Manager Name Role Phone Joe Mcneal MD Primary Care Provider [phone] Joe Mcneal MD Primary Care Provider [phone] [facility], Pcp Primary Care Provider Joe Pagan MD Primary Care Provider [phone] [facility], Pcp Primary Care Provider Jena hernandez Encounter Details Date Type Department Care Team Description 07/07/2014 Release of Information Medical Records [address] [place] [id number] Abstract, Provider Social History Tobacco Use Types [...] on filedocumented in this encounter Care Teams Hospice Case Manager Relationship Specialty Start Date End Date Joe Mcneal MD [address] [place] [address] [phone] PCP - General Internal Medicine 07/02/14 02/03/17 Joe Mcneal MD [address] [place] [address] [phone] PCP - General Internal Medicine 02/04/17 03/09/18 [facility] Pcp [address] [place] [address] PCP - General Internal Medicine 03/10/18 11/10/18 Joe Mcneal MD [address] [place] [address] PCP - General Internal Medicine 11/11/18 07/10/21 [facility], Pcp [address] [place] [address] PCP - General Internal Medicine 07/11/21 documented as of this encounter
--- OUTSIDE RECORDS SUMMARY | 2024-08-13 12:19 | XMS_ITS | Encounter Summary ---
Author Organization [facility] Address [address] [place] [address] Care Team Providers Care Manufacturing Shift Supervisor Name Role Phone Joe Mcneal MD Primary Care Provider [phone] Joe Mcneal MD Primary Care Provider [phone] [facility], Pcp Primary Care Provider UnavailJoe Shore MD Primary Care Provider [phone] [facility], Pcp Primary Care Provider Jena hernandez Encounter Details Date Type Department Care Team Description 02/28/2016 Refill Nephrology - [place] [address] [place] [address] Kenneth Martinez MD [address] [place] [address] [phone] Social History Tobacco Use Types Packs/Day Years [...] on filedocumented in this encounter Care Teams Manufacturing Shift Supervisor Relationship Specialty Start Date End Date Joe Mcneal MD [address] [place] [address] [phone] PCP - General Internal Medicine 07/02/14 02/03/17 Joe Mcneal MD [address] [place] [address] PCP - General Internal Medicine 02/04/17 03/09/18 [facility], Pcp [address] [place] [address] PCP - General Internal Medicine 03/10/18 11/10/18 Joe Mcneal MD [address] [place] [address] PCP - General Internal Medicine 11/11/18 07/10/21 [facility], Pcp [address] [place] [address] PCP - General Internal Medicine 07/11/21 documented as of this encounter
== END 2024-08-13 11:46 | disposition home or self-care (01) ==
LOC: HO.HGS 11:06
PROVIDERS: PCP Internal Medicine; Visit Provider Surgery
DX: K64.8 Other hemorrhoids (principal)
CPT/HCPCS: 46600; 99213

== ENCOUNTER → 2024-08-13 11:05 | Outpatient (BNVA) | payer OTHER, SELFPAY | PROVIDERS: PCP Internal Medicine; Visit Provider Surgery | DX: K64.8 Other hemorrhoids (principal) | CPT/HCPCS: 46600; 99212 ==

== ENCOUNTER 2024-09-12 10:24 | Emergency (ER) | payer OTHER, SELFPAY ==
--- NOTE | 2024-09-12 | ECG_ITS ---
Test Reason : CP Blood Pressure : */* mmHG Vent. Rate : 81 BPM Atrial Rate : 81 BPM P-R Int : 144 ms QRS Dur : 144 ms QT Int : 414 ms P-R-T Axes : 23 -9 189 degrees QTcB Int : 480 ms Normal sinus rhythm with sinus arrhythmia Left bundle branch block Abnormal ECG When compared with ECG of 03-Jun-2024 20:09, Nonspecific T wave abnormality now evident in Inferior leads Referred By: Generic ED Physician Electronically Signed By: LATOYA HERNANDEZ MD
--- NOTE | ~2024-09-12 | CT_ITS ---
CLINICAL HISTORY: headache CT head without contrast Comparison: CT/SR - CT HEAD/BRAIN WO IV CON - 06/03/24 21:[address]/REG/SR - CT HEAD/BRAIN WO CON - 11/15/21 21:34 EDT Findings: Generalized cerebral and cerebellar atrophy is again identified. The size and shape of the ventricular system is unchanged compared to the patient's prior study. Moderate areas of low attenuation are again seen within the periventricular and deep white matter. No midline shift or mass effect. No intracranial hemorrhage. No calvarial fractures. Paranasal sinuses are unremarkable. Mastoid air cells are well pneumatized. IMPRESSION: Unchanged head CT. This document has been electronically signed by: Jorge Forde MD on 09/12/2024 11:35:48
--- NOTE | ~2024-09-12 | CT_ITS ---
CLINICAL HISTORY: dysuria, L flank pain CT abdomen and pelvis without contrast Comparison: CR - XR CHEST 1V - 09/12/24 10:48 EDT Findings: CT abdomen: Streaky interstitial prominence within the lung bases corresponds with the chest x-ray abnormality. No dense area of consolidation. No pleural effusion or pneumothorax. Multilevel degenerative disc disease and degenerative facet disease throughout the visualized thoracolumbar spine. No acute fracture. Mild left ventricular prominence. Calcification of the mitral valve. Gallbladder is surgically absent. No renal or ureteral calculi identified. Mild prominence of the renal collecting systems bilaterally, [id number]-[id number]-left. No significant perinephric stranding. No ureteral calculi. No focal hepatic lesions on the unenhanced exam. Curvilinear calcification along the periphery of the spleen laterally. Unenhanced pancreas and adrenal glands are unremarkable. Fluid-filled loops of nondilated small bowel. CT pelvis: Moderate stool throughout the colon. Liquid stool seen within the more proximal colon. Fluid-filled loops of nondilated small bowel are seen within the pelvis. Mild induration within the central mesenteric fat. Calcification seen within the ovaries bilaterally measuring up to 8 mm in size. Trace free pelvic fluid. IMPRESSION: 1. No renal or ureteral calculi. 2. Fluid-filled small bowel with liquid stool within the proximal colon suggests infectious/inflammatory enterocolitis. No findings of obstruction. This document has been electronically signed by: Jorge Forde MD on 09/12/2024 11:47:36
--- NOTE | ~2024-09-12 | XR_ITS ---
CLINICAL HISTORY: weakness Exam: AP portable chest x-ray. Comparison: None. Findings: Lungs are well inflated. Cardiac silhouette is mildly enlarged with left ventricular prominence. Nonspecific streaky interstitial prominence is seen within the mid and inferior lungs. No dense area of consolidation. No pleural effusion or pneumothorax. Impression: Nonspecific interstitial prominence. This can be seen with edema, bronchitis/bronchiolitis, or interstitial lung disease. This document has been electronically signed by: Jorge Forde MD on 09/12/2024 11:31:16
--- NOTE | 2024-09-12 10:26 | ED_ITS ---
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 coli S to Ceftriaxone), GERD, LBBB, HLD, CKD here with c/o being still incontinence of urine with dysuria despite bladder surgery. She also notes her incontinence gives her headaches. EMS was told she had lower abdominal pain, poor PO intake, headaches, more confusion. She denies CP/SOB to us. She does admit to some headaches and lower abdominal pain. MD complaint: weakness Onset (ago): day(s) (this AM) Timing confirmed by: family member Severity: mild Consistency of symptoms: constant Associated symptoms: headaches, loss of appetite, weakness and incontinence Related Data Home Medications ?Medication ?Instructions ?Recorded ?Confirmed mirabegron 50 mg tablet,extended 50 mg PO DAILY 02/14/22 08/13/24 release 24 hr (Myrbetriq) tolterodine 4 mg capsule,extended 4 mg PO DAILY 04/19/23 08/13/24 release 24 hr Previous Rx's ?Medication ?Instructions ?Recorded epinephrine 0.3 mg/0.3 mL 0.3 mg (0.3 mL) IM Q10M PRN 03/26/20 injection, auto-injector (EpiPen anaphylaxis #1 ea 2-Mariano) blood pressure monitor (Blood #1 ea 06/06/20 Pressure Kit) commode (bedside commode) #1 ea 06/12/21 blood-glucose meter (OneTouch #1 ea 12/31/22 Ultra2 Meter) lancets 30 gauge (OneTouch #100 ea 12/31/22 UltraSoft 2 Lancet) fluticasone propionate 50 2 spray intranasal DAILY #16 grams 05/08/23 mcg/actuation nasal spray,suspension (Allergy Relief (fluticasone)) insulin glargine U-300 conc 300 20 unit (0.0667 mL) subcut BEDTIME 05/30/23 unit/mL (1.5 mL) subcutaneous pen 30 days #4.5 mL (Zoë Spears U-300 Insulin) aspirin 81 mg tablet,delayed 81 mg PO DAILY 90 days #90 tabs 10/17/23 release atorvastatin 20 mg tablet 20 mg PO BEDTIME 30 days #30 tabs 10/22/23 losartan 50 mg tablet 50 mg PO DAILY #90 tabs 12/12/23 Raised toilet seat with arms #1 ea 01/01/24 gabapentin 400 mg capsule 400 mg PO BID #180 caps 01/07/24 blood sugar diagnostic (OneTouch #100 ea 01/14/24 Ultra Test strips) omeprazole 20 mg capsule,delayed 20 mg PO DAILY #90 caps 05/11/24 release Disposable bed pads #3 ea 06/11/24 body wipes #1 ea 06/11/24 diaper,brief,adult,disposable #100 ea 06/11/24 Adult pull ups #240 ea 06/17/24 carvedilol 6.25 mg tablet 6.25 mg PO BID #180 tabs 07/08/24 Disposable tiesha-pads #240 ea 07/17/24 dulaglutide 0.75 mg/0.5 mL 0.75 mg (0.5 mL) subcut QWEEK #2 mL 08/11/24 subcutaneous pen injector ([facility]) meclizine 25 mg tablet (Motion 25 mg PO DAILY PRN motion sickness 08/29/24 Sickness Relief (meclizine)) #14 tabs tramadol 50 mg tablet 50 mg PO BID PRN pain #60 tabs 08/31/24 dicyclomine 10 mg capsule 10 mg PO BID PRN abdominal pain 09/12/24 #10 caps Allergies Allergy/AdvReac Type Severity Reaction Status Date / Time Iodinated Contrast Media Allergy Unknown UNKNOWN Verified 09/12/24 10:41 [IV CONTRAST] Review of Systems 2 Review of Systems: Constitutional : No Fever, No Chills, No Fatigue ENT/Mouth : No sore throat, No Rhinorrhea Eyes: No Eye Pain, No Swelling, No Redness Cardiovascular : No Chest Pain, No SOB, No Dyspnea on Exertion Respiratory : No Cough, No Sputum Gastrointestinal : No Nausea, No Vomiting, No Diarrhea, pos abdominal Pain Genitourinary : pos Dysuria, pos Urinary Frequency, No Hematuria, Musculoskeletal : No joint pain, No Myalgias, No Joint Swelling Skin : No Skin Lesions, No rash Neuro : No Weakness, No Numbness, No Dizziness, positive Headache All other systems reviewed and are negative PMF Past Medical History Attestation statement: The following information was validated with the patient. Source: old records reviewed Medical History Prolapsed hemorrhoids Diabetic nephropathy with proteinuria Hyperlipidemia HTN (hypertension) IBS (irritable bowel syndrome) Prolapsed internal hemorrhoids Chronic kidney disease, stage III (moderate) Obesity (BMI 30-39.9) Mixed hyperlipidemia Hypertensive heart disease Left bundle branch block Bladder prolapse Diabetes mellitus GERD (gastroesophageal reflux disease) Surgical History History of bladder repair surgery History of ERCP History of bilateral cataract extraction History of cholecystectomy History of excision of mass History of colonoscopy History of ankle surgery Family History Family History Father No problems noted. Mother No problems noted. Family/Other Lung cancer Esophagus cancer Other Mental health disorder Substance use disorder Social History Social History Household Members: Family Housing: House Do you presently have visiting nurse or other home services: Yes (every 6 months) Alcohol intake: never Patient Tobacco Use Status: Former Tobacco user Smoked in Last 30 Days: No e-Cigarette/Vaping Use: Never Used Second Hand Smoke Exposure: No Use of substances other than those prescribed or required for medical reasons: No Advance Directives: Yes Advance Directives on File: Yes Advance Directives Date on File: 04/19/23 Do you have a plan to hurt others: No Plan service: No Current occupational status: disabled Cognitive needs: Yes (cane/walker) Hearing needs: No Vision needs: Yes (glasses) Physical Exam ED Vital Signs: Vital Signs - 24 hr 09/12/24 10:40 09/12/24 10:40 Temperature 98.2 F 98.6 F Pulse Rate 87 85 Respiratory Rate 20 16 Blood Pressure 170/91 H 170/91 H Pulse Oximetry 97 98 Oxygen Delivery Method Room Air Room Air BMI result Body Mass Index 25.9 Appearance: Alert. Oriented X to person and place was slightly confused on month but then self corrected, she new the year. No acute distress. Eyes: Pupils equal, round and reactive to light. ENT: Pharynx normal. Neck: Normal inspection. Neck supple. no meningeal signs CVS: Normal heart rate and rhythm. Pulses normal. Respiratory: No respiratory distress. Breath sounds normal. Abdomen: Soft and mild RLQ and suprapubic ttp Skin: Skin warm and dry. Normal skin color. Normal skin turgor. Extremities: No lower extremity edema. No calf ttp Neuro: Oriented X 3. No motor deficit. No sensory deficit. CN2-12 intact Medical Decision Making Medical Decision Making [facility] Narrative: 88 yo female with PMH of DM, HTN, cardiomyopathy, UTI, GERD, LBBB, HLD, CKD here with c/o multiple issues - headaches, abdominal pain, dysuria, urinary frequency she is not a very good historian. At this time will obtain labs, UA, CT of head, CT abdomen. She has a broad differential at this time given her multiple complaints. I suspect she is tired and depressed from all of this. Trevaaialiyah notes she has new urogyn appointment saturday and urodynamic testing on saturday. 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 09/12/24 11:49 09/12/24 11:49 Labs: Lab Results 09/12/24 09/12/24 Range/Units 11:49 11:56 WBC 4.6 L (4.8-10.8) X10*3/uL RBC 3.32 L (4.20-5.50) X10*6/uL Hgb 9.4 L (12.0-16.0) g/dl Hct 29.3 L (37.0-47.0) % MCV 88.3 (80.0-98.0) fL MCH 28.3 (27.0-33.0) pg MCHC 32.1 (31.0-35.0) g/dl RDW 13.5 (11.0-16.0) % Plt Count 224 (160-400) X10*3/uL MPV 10.4 (9.4-12.3) fL Immature Gran % (Auto) 0.0 (0.0-0.4) % Neut % (Auto) 65.1 (45-73) % Lymph % (Auto) 27.0 (20-40) % [place] % (Auto) 5.8 (2-11) % Eos % (Auto) 1.7 (0-4) % Baso % (Auto) 0.4 (0-2) % Lymph # (Auto) 1.3 (1.2-4.9) X10*3/uL [place] # (Auto) 0.3 (0.1-1.2) X10*3/uL Eos # (Auto) 0.1 (0.0-0.4) X10*3/uL Baso # (Auto) 0.0 (0.0-0.2) X10*3/uL Abs Immat Gran (auto) 0.00 (0.00-0.03) X10*3/uL Absolute Neuts (auto) 3.0 (2.0-8.3) x10*3/uL Absolute Nucleated RBC 0.000 (0.0-0.012) X10*3/uL Nucleated RBC % (auto) 0.0 (0.0-0.2) /100WBC Sodium 143 (135-145) mmol/L Potassium 4.7 (3.3-5.1) mmol/L Chloride 111 H (96-108) mmol/L Carbon Dioxide 26 (22-29) mmol/L Anion Gap 11 L (12-20) BUN 14 (9-16) mg/dL Creatinine 0.85 (0.5-1.4) mg/dL Estim Creat Clear Calc 45.1 Estimated GFR > 60 Random Glucose 98 (60-115) mg/dL Calcium 9.2 (8.4-10.2) mg/dL Magnesium 1.7 (1.6-2.6) mg/dL Total Bilirubin 0.4 (0.0-1.0) mg/dL Direct Bilirubin 0.1 (0.0-0.5) mg/dL AST 27 (5-31) U/L ALT 14 (0-31) U/L Alkaline Phosphatase 114 (39-117) U/L Troponin I High Sens 88.2 H* (<3.5-17.0) ng/L C-Reactive Protein 0.12 (< or = 0.50) mg/dL B-Natriuretic Peptide 214 H (<100) pg/mL Total Protein 7.0 (6.5-8.0) g/dL Albumin 4.2 (3.5-5.0) g/dL Lipase 26 (8-78) U/L Urine Color Yellow Urine Appearance Clear Urine pH 7.0 (5.0-9.0) Ur Specific [place] <= 1.005 (1.005-1.025) Urine Protein Trace (Neg-Trace) mg/dL Urine Glucose (UA) Negative (Negative) mg/dL Urine Ketones Negative (Negative) mg/dL Urine Blood Negative (Negative) Urine Nitrite Negative (Negative) Ur Leukocyte Esterase Negative (Negative) Influenza Type A (PCR) NEGATIVE (Negative) Influenza Type B (PCR) NEGATIVE (Negative) RSV RNA Qual (PCR) NEGATIVE (Negative) SARS-CoV-2 RNA (RT-PCR) NEGATIVE (Negative) Independent Interpretation I performed an independent interpretation of an: EKG, Plain X-Ray (no pneumonia) and CT Scan (no ICH, CT scan abdomen enterocolitis) Interpretation: Rate: 81 Rhythm: NSR [place]: left Normal P waves. Normal SRI. LBBB ST T wave : no ALBERT, inverted t waves V6, I and aVL qTC: 480 prior studies: no change The study has been interpreted contemporaneously by me. . Radiology Impression Discussion of test interpretation with radiology: I have reviewed the radiologist's reading. Independent Historian Clinical information obtained from an independent historian. History obtained from or confirmed by: EMS and Other (family) Discharge Plan Discharge Clinical Impression: Abdominal pain Qualifiers: Abdominal location: generalized Qualified Code(s): R10.84 - Generalized abdominal pain Urinary incontinence Qualifiers: Urinary Incontinence type: other incontinence Qualified Code(s): N39.498 - Other specified urinary incontinence Patient Disposition: Home, Self-Care Instructions: Urinary Incontinence (ED), Abdominal Pain (ED) Additional Instructions: labs reassuring urine no infection CT head no acute findings CT abdomen/pelvis mild viral like syndrome of intestines but no obstruction at this time please follow up with your UroGYN saturday as planned return for any worseniing symptoms or concerns. Prescriptions: New dicyclomine 10 mg capsule 10 mg PO BID PRN (Reason: abdominal pain) Qty: 10 0RF No Action (DME) blood pressure monitor [Blood Pressure Kit] Kit See Rx Instructions .ROUTE .MEDSUPPLY Qty: 1 0RF Rx Instructions: As directed (DME) bedside commode Kit See Rx Instructions .Route Qty: 1 0RF Rx Instructions: As directed (DME) blood-glucose meter [OneTouch Ultra2 Meter] Misc See Rx Instructions .Route Qty: 1 0RF Rx Instructions: test 3 times daily (DME) lancets [OneTouch UltraSoft 2 Lancet] 30 gauge misc See Rx Instructions .Route Qty: 100 12RF Rx Instructions: test 3 times per day insulin glargine U-300 conc [Toujeo SoloStar U-300 Insulin] 300 unit/mL (1.5 mL) insulin pen 20 unit subcut BEDTIME 30 Days Qty: 4.5 0RF aspirin 81 mg tablet,delayed release (DR/EC) 81 mg PO DAILY 90 Days Qty: 90 3RF Rx Instructions: Take 1 tablet daily to help your heart. atorvastatin 20 mg tablet 20 mg PO BEDTIME 30 Days Qty: 30 5RF Rx Instructions: Cholesterol-lowering agent. losartan 50 mg tablet 50 mg PO DAILY Qty: 90 4RF (DME) Raised toilet seat with arms See Rx Instructions .Route .MEDSUPPLY Qty: 1 0RF Rx Instructions: As directed gabapentin 400 mg capsule 400 mg PO BID Qty: 180 4RF (DME) OneTouch Ultra Test Strip See Rx Instructions .Route Qty: 100 11RF Rx Instructions: test 3 times per day omeprazole 20 mg capsule,delayed release(DR/EC) 20 mg PO DAILY Qty: 90 0RF (DME) body wipes See Rx Instructions .Route .MEDSUPPLY Qty: 1 3RF Rx Instructions: As directed (DME) diaper,brief,adult,disposable Misc See Rx Instructions .Route Qty: 100 0RF Rx Instructions: As directed size mediun (DME) Disposable bed pads See Rx Instructions .Route .MEDSUPPLY Qty: 3 3RF Rx Instructions: As directed (DME) Adult pull ups medium See Rx Instructions .Route .MEDSUPPLY Qty: 240 11RF Rx Instructions: As directed carvedilol 6.25 mg tablet 6.25 mg PO BID Qty: 180 3RF Rx Instructions: must administer with a meal/food (DME) Disposable tiesha-pads See Rx Instructions .Route .MEDSUPPLY Qty: 240 11RF Rx Instructions: As directed Trulicity 0.75 mg/0.5 mL pen injector 0.75 mg subcut QWEEK Qty: 2 3RF meclizine [Motion Sickness Relief(mecliz)] 25 mg tablet 25 mg PO DAILY PRN (Reason: motion sickness) Qty: 14 0RF tramadol 50 mg tablet 50 mg PO BID PRN (Reason: pain) Qty: 60 0RF epinephrine [EpiPen 2-Mariano] 0.3 mg/0.3 mL auto-injector 0.3 mg IM Q10M PRN (Reason: anaphylaxis) Qty: 1 0RF Rx Instructions: for 2 doses tolterodine 4 mg capsule,extended release 24hr 4 mg PO DAILY fluticasone propionate [Allergy Relief (fluticasone)] 50 mcg/actuation spray,suspension 2 spray intranasal DAILY Qty: 16 3RF Rx Instructions: administer into each nostril Myrbetriq 50 mg tablet extended release 24 hr 50 mg PO DAILY Print Language: Icelandic
[2024-09-12 10:40] VITALS: BP 150/80; BP 170/91; PULSE 85; PULSE 86; PULSE 87; RESP 16; RESP 20; TEMP 36.8; TEMP 37; O2SAT 97; O2SAT 98; O2SAT 99; BMI 25.9
[2024-09-12 12:06] LABS: MANUAL DIFF FLAG NO
[2024-09-12 12:09] LABS: Basophils Percent Auto 0.4 % (0-2); Eosinophils Absolute Auto 0.1 X10*3/uL (0.0-0.4); Eosinophils Percent Auto 1.7 % (0-4); Hematocrit 29.3 % (37.0-47.0); Hemoglobin 9.4 g/dl (12.0-16.0); Lymphocytes Absolute Auto 1.3 X10*3/uL (1.2-4.9); Mean Corpuscular HGB Conc 32.1 g/dl (31.0-35.0); Mean Corpuscular Hemoglobin 28.3 pg (27.0-33.0); Mean Corpuscular Volume 88.3 fL (80.0-98.0); Mean Platelet Volume 10.4 fL (9.4-12.3); Monocytes Absolute Auto 0.3 X10*3/uL (0.1-1.2); Monocytes Percent Auto 5.8 % (2-11); Neutrophils Percent Auto 65.1 % (45-73); Platelet Count 224 X10*3/uL (160-400); Red Blood Count 3.32 X10*6/uL (4.20-5.50); Red Cell Distribution Width 13.5 % (11.0-16.0); White Blood Count 4.6 X10*3/uL (4.8-10.8)
[2024-09-12 12:11] LABS: Appearance Urine Clear; Color Urine Yellow; Glucose Urine UA Negative (Negative); Leukocyte Esterase Urine Negative (Negative); Nitrite Urine Negative (Negative); Specific Gravity - Urine <= 1.005 (1.005-1.025); Urine Blood Negative (Negative); Urine Ketones Negative (Negative); Urine Protein Trace mg/dL (Neg-Trace)
[2024-09-12 12:22] LABS: Alanine Aminotransferase 14 U/L (0-31); Albumin Level 4.2 g/dL (3.5-5.0); Alkaline Phosphatase 114 U/L (39-117); Anion Gap 11 (12-20); Aspartate Amino Transferase 27 U/L (5-31); Bilirubin Direct 0.1 mg/dL (0.0-0.5); Bilirubin Total 0.4 mg/dL (0.0-1.0); Blood Urea Nitrogen 14 mg/dL (9-16); C Reactive Protein 0.12 mg/dL (< or = 0.50); Calcium 9.2 mg/dL (8.4-10.2); Carbon Dioxide 26 mmol/L (22-29); Chloride 111 mmol/L (96-108); Creatinine Clr Calc Pharmacy 45.1; Estimated Glomerular Filt Rate > 60; Glucose Random 98 mg/dL (60-115); Lipase 26 U/L (8-78); Magnesium 1.7 mg/dL (1.6-2.6); Potassium 4.7 mmol/L (3.3-5.1); Sodium 143 mmol/L (135-145)
[2024-09-12 12:32] LABS: B Type Natriuretic Peptide 214 pg/mL (<100)
[2024-09-12 13:02] LABS: Troponin-I High Sensitivity 88.2 ng/L (<3.5-17.0)
[2024-09-12 13:30] LABS: Influenza A PCR NEGATIVE (Negative); Influenza B PCR NEGATIVE (Negative); Resp Syncy Virus RNA Qual PCR NEGATIVE (Negative); SARS COV2 PCR INHOUSE NEGATIVE (Negative)
[2024-09-12 13:56] VITALS: BP 159/63; PULSE 87; RESP 16; O2SAT 97
[2024-09-12 14:05] VITALS: BP 159/63; PULSE 87; RESP 16; TEMP -17.7; TEMP 0; O2SAT 97
== END 2024-09-12 14:06 | disposition home or self-care (01) ==
PROVIDERS: Emergency Provider Emergency Medicine
DX: R10.84 Generalized abdominal pain (principal); N39.498 Other specified urinary incontinence; R51.9 Headache, unspecified; Z03.818 Encounter for observation for suspected exposure to other biological agents ruled out; E11.9 Type 2 diabetes mellitus without complications; I10 Essential (primary) hypertension; E78.5 Hyperlipidemia, unspecified; Z87.891 Personal history of nicotine dependence; Z79.4 Long term (current) use of insulin; Z79.82 Long term (current) use of aspirin; Z79.02 Long term (current) use of antithrombotics/antiplatelets; Z79.85 Long-term (current) use of injectable non-insulin antidiabetic drugs; Z79.899 Other long term (current) drug therapy
CPT/HCPCS: 0241U; 70450; 71045; 74176; 80048; 80076; 81003; 83690; 83735; 83880; 84484; 85025; 86140; 93005; 99284; 99285

== ENCOUNTER → 2024-09-12 10:39 | Outpatient (BNV) | payer OTHER, SELFPAY | PROVIDERS: Emergency Provider Emergency Medicine; Visit Provider Radiology Diagnostic Radiology | DX: K63.89 Other specified diseases of intestine (principal); R51.9 Headache, unspecified; J84.9 Interstitial pulmonary disease, unspecified | CPT/HCPCS: 70450; 71045; 74176 ==

== ENCOUNTER → 2024-09-12 10:46 | Outpatient (BNV) | payer OTHER, SELFPAY | PROVIDERS: Emergency Provider Emergency Medicine; Visit Provider Internal Medicine Cardiovascular Disease | DX: I44.7 Left bundle-branch block, unspecified (principal); I49.9 Cardiac arrhythmia, unspecified | CPT/HCPCS: 93010 ==

== ENCOUNTER 2024-09-16 14:17 | Outpatient (AMB) | payer OTHER, SELFPAY ==
--- NOTE | 2024-09-16 14:18 | A.OFFVIS_ITS ---
Vital Signs 09/16/24 14:26 Height 5 ft 5 in Weight 155 lb BMI 25.8 BP 169/84 H Blood Pressure Location Rt brachial Position Sitting Pulse 89 Intake Visit Reasons: repair prolapsed internal hemorrhoids Intake Note: Patient here to follow up repair prolapse internal hemorrhoids. Patient c/o: bleeding w/BM. Bleeding worse with diarrhea. Has not seen GI in yrs. Rib Chopper Required: No Accompanied by: daughter Renay Ramsey Allergies Iodinated Contrast Media (IV CONTRAST) Allergy (Unknown, Verified 09/16/24 14:25) UNKNOWN HPI HPI repair prolapsed internal hemorrhoids: Details: She is here for rubber band ligation for prolapsing internal hemorrhoids. [facility] Medical History Prolapsed hemorrhoids Diabetic nephropathy with proteinuria Hyperlipidemia HTN (hypertension) IBS (irritable bowel syndrome) Prolapsed internal hemorrhoids Chronic kidney disease, stage III (moderate) Obesity (BMI 30-39.9) Mixed hyperlipidemia Hypertensive heart disease Left bundle branch block Bladder prolapse Diabetes mellitus GERD (gastroesophageal reflux disease) Surgical History History of bladder repair surgery History of ERCP History of bilateral cataract extraction History of cholecystectomy History of excision of mass History of colonoscopy History of ankle surgery Family History Father No problems noted. Mother No problems noted. Family/Other Lung cancer Esophagus cancer Other Mental health disorder Substance use disorder Social History Household Members: Family Housing: House Do you presently have visiting nurse or other home services: Yes (every 6 months) Alcohol intake: never Patient Tobacco Use Status: Former Tobacco user e-Cigarette/Vaping Use: Never Used Second Hand Smoke Exposure: No Advance Directives Date on File: 04/19/23 service: No Current occupational status: disabled Cognitive needs: Yes (cane/walker) Hearing needs: No Vision needs: Yes (glasses) Physical Exam Vital Signs: Last Vital Signs Pulse 89 09/16/24 14:26 BP 169/84 H 09/16/24 14:26 BMI result Body Mass Index 25.8 Office Procedures Hemorrhoid Procedure: Rubber band ligation of internal hemorrhoids x2 The patient was in kneeling caro-knife position. The anoscope was gently inser philip. Examination of the anal canal showed 2 large internal hemorrhoids. The rubber band was applied at the base off these 2 hemorrhoidal columns using the rubber band applicator. Again, 2 internal hemorrhoids were rubber banded. She tolerated procedure well. There were no immediate complications. I will see him in the office in about 2 weeks for another visit. Assessment & Plan Assessment & Plan (1) Prolapsed internal hemorrhoids: Code(s): K64.8 - Other hemorrhoids Category: Medical Plan: Rubber band ligation was done for 2 internal hemorrhoidal columns. She tolerated procedure well. I will see her in for a follow up in the office. Coding Level of Care Code Procedure Only Diagnoses Prolapsed internal hemorrhoids K64.8
[2024-09-16 14:26] VITALS: BP 169/84; PULSE 89; BMI 25.8
--- OUTSIDE RECORDS SUMMARY | 2024-09-16 16:27 | XMS_ITS | Clinical Summary ---
Author Organization [employer] Address [address] [place] [address] Care Team Providers Care Hot Tar Roofer Name Role Phone Unavailable Primary Care Provider [...] 05/23/2021, 07/25/2020, Additional history exists Influenza Vaccine (Season Ended) 2024 02/13/2022, 01/23/2021, 12/01/2019, Additional history exists DTaP/Tdap/Td Vaccines [...] patient's age to complete this topic Insurance [facility] [employer] [facility] [employer] (HMO D-SNP) [place] [id number]
== END 2024-09-16 14:46 | disposition home or self-care (01) ==
LOC: HO.HGS 14:18
PROVIDERS: PCP Internal Medicine; Visit Provider Surgery
DX: K64.8 Other hemorrhoids (principal)
CPT/HCPCS: 46221

== ENCOUNTER → 2024-09-16 14:17 | Outpatient (BNVA) | payer OTHER, SELFPAY | PROVIDERS: PCP Internal Medicine; Visit Provider Surgery | DX: K64.8 Other hemorrhoids (principal); R19.7 Diarrhea, unspecified | CPT/HCPCS: 46221 ==

== ENCOUNTER 2024-11-06 10:18 | Outpatient (AMB) | payer OTHER, SELFPAY ==
--- OUTSIDE RECORDS SUMMARY | 2024-11-06 10:21 | XMS_ITS | Clinical Summary ---
Author Organization [employer] Address [address] [place] [address] Care Team Providers Care Camp Nurse Name Role Phone Unavailable Primary Care Provider [...] 07/25/2020, Additional history exists Influenza Vaccine (#1) 2024 2, 01/23/2021, 12/01/2019, Additional history exists DTaP/Tdap/Td Vaccines [...] complete this topic Insurance [employer] (HMO D-SNP) [place] [id number]
[2024-11-06 10:22] VITALS: BP 142/70; PULSE 88; BMI 26.4
--- NOTE | 2024-11-06 10:22 | MHC.OFFVIS ---
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 Operator Asbestos Shingle Present Allergies Iodinated Contrast Media (IV CONTRAST) Allergy (Unknown, Verified 11/06/24 10:26) UNKNOWN Medication List - Last Reconciled 11/06/24 by YADIRA Palm [Adult pull ups As directed] aspirin (Adult Aspirin Regimen) 81 mg PO DAILY atorvastatin 20 mg PO BEDTIME blood pressure monitor (Blood Pressure Kit) As directed blood sugar diagnostic (Style on Screenuch Ultra Test strips) test 3 times per day blood-glucose meter (The Poshpacker Ultra2 Meter) test 3 times daily [body wipes As directed] carvedilol 6.25 mg PO BID commode (bedside commode) As directed diaper,brief,adult,disposable As directed size mediun dicyclomine 10 mg PO BID PRN [Disposable bed pads As directed] [Disposable tiesha-pads As directed] dulaglutide (Trulicity) 0.75 mg (0.5 mL) subcut QWEEK epinephrine (EpiPen 2-Mariano) 0.3 mg (0.3 mL) IM Q10M PRN gabapentin 400 mg PO BID insulin glargine U-300 conc (Toujeo SoloStar U-300 Insulin) 20 units (0.0667 mL) subcut BEDTIME 30 days lancets (Prescient MedicalTouch UltraSoft 2 Lancet) test 3 times per day losartan 50 mg PO DAILY meclizine (Motion Sickness Relief (meclizine)) 25 mg PO DAILY PRN mirabegron ER (Myrbetriq) 50 mg PO DAILY omeprazole 20 mg PO DAILY [Raised toilet seat with arms As directed] tramadol 50 mg PO BID PRN HPI HPI r/s 10/12/24 4 mos followup: Details: Brit is an 89-year-old female past medical history of hypertension, hyperlipidemia, diabetes, obesity, chronic kidney disease, left bundle branch block, NSTEMI April 2023 followed by abnormal nuclear stress test and patient declined cardiac catheterization. She has been managed medically and now presents for follow-up. Today she reports that she has been doing well with no chest discomfort at rest or during activity. She has no shortness of breath, PND, orthopnea or edema. No heart palpitations, lightheadedness, presyncope, syncope, falls. Taking meds as directed. Patient still does not want to pursue invasive cardiac testing. She lives with her son. Daughter is present and assisting with [place] translation at their request. [facility] Medical History Prolapsed hemorrhoids Diabetic nephropathy with proteinuria Hyperlipidemia HTN (hypertension) IBS (irritable bowel syndrome) Prolapsed internal hemorrhoids Chronic kidney disease, stage III (moderate) Obesity (BMI 30-39.9) Mixed hyperlipidemia Hypertensive heart disease Left bundle branch block Bladder prolapse Diabetes mellitus GERD (gastroesophageal reflux disease) Surgical History History of bladder repair surgery History of ERCP History of bilateral cataract extraction History of cholecystectomy History of excision of mass History of colonoscopy History of ankle surgery Family History Father No problems noted. Mother No problems noted. Family/Other Lung cancer Esophagus cancer Other Mental health disorder Substance use disorder Social History Household Members: Family Housing: House Do you presently have visiting nurse or other home services: Yes (every 6 months) Alcohol intake: never Patient Tobacco Use Status: Former Tobacco user e-Cigarette/Vaping Use: Never Used Second Hand Smoke Exposure: No Advance Directives Date on File: 04/19/23 service: No Current occupational status: disabled Cognitive needs: Yes (cane/walker) Hearing needs: No Vision needs: Yes (glasses) Review of Systems Const All systems reviewed & are unremarkable except as noted in HPI and below ENT Denies dizziness Card Denies chest pain, Denies chest pain at rest, Denies chest pain with activity, Denies rapid heart rate, Denies pedal edema, Denies edema, Denies leg edema, Denies lightheadedness, Denies palpitations, Denies dyspnea, Denies dyspnea on exertion and Denies orthopnea Resp Denies cough, Denies dyspnea and Denies dyspnea on exertion GI Denies hematochezia and Denies change in stool character Musc Details: uses cane for balance Denies abnormal gait, Denies limited range of motion, Denies muscle cramps, Denies muscle weakness, Denies numbness, Denies radiating pain into limb, Denies stiffness and Denies tingling Neuro Denies abnormal gait, Denies dizziness, Denies numbness and Denies tingling Endo Denies palpitations Physical Exam Vital Signs: Last Vital Signs Pulse 88 11/06/24 10:22 BP 142/70 H 11/06/24 10:22 BMI result Body Mass Index 26.4 Const Other: Somewhat frail, ambulates slow with cane General: cooperative, healthy appearing, comfortable and no acute distress Orientation/consciousness: patient oriented x3 Neck Neck: Yes normal visual inspection and Yes no JVD Resp Effort & Inspection: normal respiratory effort Auscultation: clear to auscultation bilaterally, no rales, no rhonchi and no wheezes Cardio Jugular venous distension: no JVD Rate: regular rate Rhythm: regular rhythm Heart sounds: S1 normal heart sound present, S2 normal heart sound present, no murmurs and no rubs Neuro General: patient oriented x3 Extrem Other: trace ankle swelling General: Yes normal to inspection, No no pedal edema and No calf tenderness Psych Appearance: grossly normal Mental Status: mental status grossly normal Speech and movement: Normal speech and movement present Assessment & Plan Assessment & Plan (1) Cardiomyopathy: Code(s): I42.9 - Cardiomyopathy, unspecified Category: Medical Plan: Newer finding of cardiomyopathy at time of [facility] admit for UTI and secondary NSTEMI April 2023. Echocardiogram done on 04/09/2023 showed EF 35-40%, impaired relaxation, mild aortic stenosis. Prior echo done 11/24/2019 had shown EF 55-60%, mild aortic stenosis. She does have a history of chronic left bundle branch block which can contribute to her cardiomyopathy. She has multiple cardiac risk factors including age, hypertension, hyperlipidemia, diabetes, obesity and chronic kidney disease. A pharmacological nuclear stress test was done on 06/12/2023 showing ischemia in the inferior lateral as well as inferior apical wall with fixed defect in the basal to mid inferior wall question severe ischemia versus nontransmural infarct. She declines cardiac catheterization. Repeat echocardiogram 02/19/2024 again showed EF 35-40%. No signs of heart failure on examination. We will continue medical management. Continue aspirin 81 mg daily. Continue atorvastatin with ideal LDL goal less than 70. Continue carvedilol and losartan for neurohormonal modulation. Emergency care if ever needed for symptoms. Cardiology follow-up in 7 months, sooner if needed. (2) Left bundle branch block: Comment: Known left bundle-branch block. Prior workup had shown no evidence of myocardial ischemia. Code(s): I44.7 - Left bundle-branch block, unspecified Category: Medical Plan: History of left bundle branch block. May be contributing to her cardiomyopathy (3) Hypertensive heart disease: Comment: Moderate LVH by echocardiogram, September 2019 consistent with hypertensive heart disease. No evidence of heart failure. Code(s): I11.9 - Hypertensive heart disease without heart failure Category: Medical Plan: Most recent echo showing mild LVH, EF 35-40%. Importance of good blood pressure control reviewed with her. Discussed low-salt diet. (4) HTN (hypertension): Code(s): I10 - Essential (primary) hypertension Category: Medical Plan: Blood pressure goal less than 140/90. Adequately controlled at present with her advanced age. No med changes made. (5) Abnormal nuclear stress test: Code(s): R94.39 - Abnormal result of other cardiovascular function study Category: Medical Plan: As above. Catheterization offered however declines. Opts for medical management (6) Palpitation: Code(s): R00.2 - Palpitations Category: Medical Plan: Previously reported vague heart palpitations. EKG last visit showed sinus rhythm. Holter monitor done 05/25/2024 for 3 days showed sinus rhythm with average heart rate 87 beats per minute, rare PACs and PVCs. Offered reassurance. Continue carvedilol. Plan Time spent on chart review, documentation, interview and assessment Medications: Refilled blood pressure monitor (Blood Pressure Kit) As directed 1 ea 0RF I10 - Essential (primary) hypertension, I11.9 - Hypertensive heart disease without heart failure Coding Level of Care Code Est Pt Level 4 (30248) Complex EM visit Add On G2211 Diagnoses Cardiomyopathy I42.9 Left bundle branch block I44.7 Hypertensive heart disease I11.9 HTN (hypertension) I10 Abnormal nuclear stress test R94.39 Palpitation R00.2 Time Spent (min) 28
== END 2024-11-06 10:53 | disposition home or self-care (01) ==
PROVIDERS: PCP Internal Medicine; Visit Provider Nurse Practitioner Family
DX: I42.9 Cardiomyopathy, unspecified (principal); I44.7 Left bundle-branch block, unspecified; I11.9 Hypertensive heart disease without heart failure; I10 Essential (primary) hypertension; R94.39 Abnormal result of other cardiovascular function study; R00.2 Palpitations
CPT/HCPCS: 99214; G2211

== ENCOUNTER → 2024-11-06 10:18 | Outpatient (BNVA) | payer OTHER, SELFPAY | PROVIDERS: PCP Internal Medicine; Visit Provider Nurse Practitioner Family | DX: I42.9 Cardiomyopathy, unspecified (principal); I44.7 Left bundle-branch block, unspecified; I11.9 Hypertensive heart disease without heart failure; I10 Essential (primary) hypertension; R00.2 Palpitations; R94.39 Abnormal result of other cardiovascular function study | CPT/HCPCS: 99212 ==

== ENCOUNTER 2024-11-07 23:01 | Day surgery (SDC) | payer OTHER, SELFPAY ==
[2024-11-07 23:09] VITALS: BP 148/45; BP 162/67; PULSE 85; PULSE 86; RESP 17; TEMP 37.2; O2SAT 97; O2SAT 98; BMI 22.1
[2024-11-07 23:37] VITALS: BP 153/44; PULSE 84; RESP 14; O2SAT 96
--- NOTE | 2024-11-08 00:46 | ED_ITS ---
HPI - General Adult General Chief complaint: General Medical Stated complaint: unknown specimen stuck in throat -ems Time Seen by Provider: 11/08/24 00:46 Source: patient Mode of arrival: ambulatory Limitations: language barrier (Nutrition Counselor services utilized.) History of Present Illness ED Provider: Russell TAYLOR HPI narrative: The patient is an 89-year-old female presenting to the ED reporting earlier this evening she was eating a piece of plantain when she developed a sensation ago it is stuck in her throat. Patient reports symptoms initially were in the upper throat however eventually migrated to her epigastrium but have persisted since that time. The patient reports she has been unable to tolerate p.o. fluids or solids, is able to speak in full sentences with no stridor, but has been unable to swallow her saliva, presents to the ED spitting up her saliva. Related Data Home Medications ?Medication ?Instructions ?Recorded ?Confirmed mirabegron 50 mg tablet,extended 50 mg PO DAILY 11/06/24 release 24 hr (Myrbetriq) Previous Rx's ?Medication ?Instructions ?Recorded epinephrine 0.3 mg/0.3 mL 0.3 mg (0.3 mL) IM Q10M PRN 03/26/20 injection, auto-injector (EpiPen anaphylaxis #1 ea 2-Mariano) commode (bedside commode) #1 ea 06/12/21 blood-glucose meter (OneTouch #1 ea 12/31/22 Ultra2 Meter) lancets 30 gauge (OneTouch #100 ea 12/31/22 UltraSoft 2 Lancet) insulin glargine U-300 conc 300 20 unit (0.0667 mL) de león bcut BEDTIME 05/30/23 unit/mL (1.5 mL) subcutaneous pen 30 days #4.5 mL (Toujeo SoloStar U-300 Insulin) losartan 50 mg tablet 50 mg PO DAILY #90 tabs 11/30 05/25 Raised toilet seat with arms #1 ea 01/01/24 gabapentin 400 mg capsule 400 mg PO BID #180 caps 11/22 blood sugar diagnostic (OneTouch #100 ea 01/14/24 Ultra Test strips) Disposable bed pads #3 ea 06/11/24 body wipes #1 ea 06/11/24 diaper,brief,adult,disposable #100 ea 06/11/24 Adult pull ups #240 ea 06/17/24 carvedilol 6.25 mg tablet 6.25 mg PO BID #180 tabs 12/24 Disposable tiesha-pads #240 ea 07/17/24 dulaglutide 0.75 mg/0.5 mL 0.75 mg (0.5 mL) subcut QWE EK #2 mL 08/11/24 subcutaneous pen injector (Trulicity) dicyclomine 10 mg capsule 10 mg PO BID PRN abdominal p ain 09/12/24 #10 caps aspirin 81 mg tablet,delayed 81 mg PO DAILY #90 tabs 0 10/12/24 release (Adult Aspirin Regimen) omeprazole 20 mg capsule,delayed 20 mg PO DAILY #90 ca ps 10/20/24 release atorvastatin 20 mg tablet 20 mg PO BEDTIME #90 tabs tramadol 50 mg tablet 50 mg PO BID PRN pain #60 ta bs 11/02/24 meclizine 25 mg tablet (Motion 25 mg PO DAILY PRN blanca on sickness 11/04/24 Sickness Relief (meclizine)) #14 tabs blood pressure monitor (Blood #1 ea 11/06/24 Pressure Kit) Allergies Allergy/AdvReac Type Severity Reaction Status Date / Time Iodinated Contrast Media (IV Allergy Unknown UNKNOWN Verified 11/07/24 23:19 CONTRAST) Review of Systems 2 Review of Systems: Yes all other systems are reviewed and are negative [facility] Past Medical History Medical History Prolapsed hemorrhoids Diabetic nephropathy with proteinuria Hyperlipidemia HTN (hypertension) IBS (irritable bowel syndrome) Prolapsed internal hemorrhoids Chronic kidney disease, stage III (moderate) Obesity (BMI 30-39.9) Mixed hyperlipidemia Hypertensive heart disease Left bundle branch block Bladder prolapse Diabetes mellitus GERD (gastroesophageal reflux disease) Surgical History History of bladder repair surgery History of ERCP History of bilateral cataract extraction History of cholecystectomy History of excision of mass History of colonoscopy History of ankle surgery Family History Family History Father No problems noted. Mother No problems noted. Family/Other Lung cancer Esophagus cancer Other Mental health disorder Substance use disorder Social History Social History Household Members: Family Housing: House Do you presently have visiting nurse or other home services: Yes (every 6 months) Alcohol intake: never Patient Tobacco Use Status: Former Tobacco user Smoked in Last 30 Days: No e-Cigarette/Vaping Use: Never Used Second Hand Smoke Exposure: No Use of substances other than those prescribed or required for medical reasons: No Advance Directives: No Advance Directives Information Provided: Yes Advance Directives Date on File: 04/19/23 service: No Current occupational status: disabled Cognitive needs: Yes (cane/walker) Hearing needs: No Vision needs: Yes (glasses) Physical Exam ED Vital Signs: Vital Signs - 24 hr 11/07/24 23:09 11/07/24 23:37 11/08/24 04:00 Temperature 98.9 F 98.7 F Pulse Rate 85 84 84 Respiratory Rate 17 14 14 Blood Pressure 148/45 H 153/44 H 168/65 H Pulse Oximetry 97 96 96 Oxygen Delivery Method Room Air Room Air 11/08/24 07:56 11/08/24 10:11 11/08/24 12:28 Temperature 97.4 F Pulse Rate 85 83 88 Respiratory Rate 15 14 14 Blood Pressure 169/68 H 155/57 H 137/47 L Pulse Oximetry 97 98 95 Oxygen Delivery Method Room Air Room Air Room Air 11/08/24 12:42 Temperature Pulse Rate 83 Respiratory Rate 15 Blood Pressure 166/75 H Pulse Oximetry 94 Oxygen Delivery Method Room Air BMI result Body Mass Index 22.1 CONSTITUTIONAL: The patient appears non-toxic, well nourished and in no acute distress. Vital signs as documented. HEAD: Atraumatic, normocephalic. EYES: EOMs grossly intact, pupils equal, conjunctiva clear, no exudate. ENT: Nares patent, no discharge. Airway patent, no audible stridor, visible mucosa is pink and moist without noted lesions. NECK: Trachea is midline, no obvious masses or gross abnormalities. CHEST: Symmetric movement, normal appearance. LUNGS: LS present and CTAB, no w/r/r. Non-labored work of breathing. CARDIAC: Regular Rhythm, S1/S2 appreciated, no murmurs, rubs or gallops. ABDOMEN: Abdomen soft and non-tender x4 quadrants, no palpable masses or organomegaly. : Deferred. EXTREMITIES: Normal tone, moves all extremities spontaneously without reported pain. No obvious acute injury or deformity noted. NEURO: Alert and oriented x3, CN II-XII appear grossly intact. Cerebellar Functioning grossly intact. No obvious sensory or motor deficits. Speech clear and appropriate. PSYCH: normal affect, appropriate eye contact, fluid speech, with appropriate response to questioning. No reported suicidality or homicidality. SKIN: Warm, dry, color appropriate, normal turgor. No rashes noted. Course Reevaluation(s) Reevaluation #1: Patient has been here since last night unable to swallow, I spoke with Dr. Doty this morning is arranging endoscopy for possible foreign body esophagus patient stated that she ate platanos Time: 08:40 Medications Administered Discontinued Medications Generic Name Dose Route Start Last Admin Trade Name Freq PRN Reason Stop Dose Admin Glucagon 1 mg 11/08/24 00:52 11/08/24 01:23 Glucagon Hcl 1 Mg Vial IVPUSH 11/08/24 00:53 1 mg ONCE ONE Administration Nitroglycerin 0.4 mg 11/08/24 00:52 11/08/24 01:22 Nitroglycerin 0.4 Mg Tab.Subl SUBLINGUAL 11/08/24 00:53 0.4 mg ONCE ONE Administration Ondansetron HCl 4 mg 11/08/24 05:40 11/08/24 05:48 Ondansetron Hcl 4 Mg/2 Ml Vial IVPUSH 11/08/24 05:41 4 mg ONCE ONE Administration Medical Decision Making Medical Decision Making [facility] Narrative: 2:33 AM 11/08/2024 ([place] TAYLOR): The patient is an 89-year-old female presenting to the ED for evaluation of sensation of esophageal foreign body. The patient was not tolerating her own secretions, was treated with glucagon and nitroglycerin. At this time the patient reports she continues to spit up but at a slower rate, and reports the pain in the epigastrium is less severe compared to previous. We will attempt p.o. fluid challenge, if successful we will attempt p.o. solid challenge. If patient is unable to tolerate p.o. fluids or solids we will call in GI for endoscopy. Of note due to the patient's age and location of pain a cardiac workup was ordered, patient's troponin is elevated however chart review reveals persistently elevated troponin, and today's troponin is less than previously documented. Additionally the patient's EKG shows an old left bundle-branch block which is unchanged in morphology from previous. 3:57 AM 11/08/2024 ([place] TAYLOR): Of note the patient failed p.o. fluid challenge, vomited shortly after attempted p.o. challenge and reported return of pain. The answering service for the GI specialist on-call was called at 03:05, at this time we have not received a call back, a repeat page was sent out at approximately 03:50. Patient's case will be signed out to Dr. Andersen pending GI call back. 4:26 AM 11/08/2024 ([place] TAYLOR): Patient's case was discussed with Dr. Doty who will plan to evaluate the patient this morning and perform endoscopy. Patient will be monitored in the ED with head of bed elevated to ensure no aspiration. Patient's case signed out to Dr. Andersen. Admission/Observation Consideration of admission/observation: Escalation of care including admission/observation considered Lab Data MDM Lab Attestation statement: I reviewed the patient's lab results. 11/08/24 01:15 11/08/24 01:15 Labs: Lab Results 11/08/24 Range/Units 01:15 WBC 6.4 (4.8-10.8) X10*3/uL RBC 3.16 L (4.20-5.50) X10*6/uL Hgb 8.7 L (12.0-16.0) g/dl Hct 27.5 L (37.0-47.0) % MCV 87.0 (80.0-98.0) fL MCH 27.5 (27.0-33.0) pg MCHC 31.6 (31.0-35.0) g/dl RDW 13.8 (11.0-16.0) % Plt Count 227 (160-400) X10*3/uL MPV 10.0 (9.4-12.3) fL Immature Gran % (Auto) 0.2 (0.0-0.4) % Neut % (Auto) 64.6 (45-73) % Lymph % (Auto) 25.9 (20-40) % [place] % (Auto) 7.1 (2-11) % Eos % (Auto) 2.0 (0-4) % Baso % (Auto) 0.2 (0-2) % Lymph # (Auto) 1.7 (1.2-4.9) X10*3/uL [place] # (Auto) 0.5 (0.1-1.2) X10*3/uL Eos # (Auto) 0.1 (0.0-0.4) X10*3/uL Baso # (Auto) 0.0 (0.0-0.2) X10*3/uL Abs Immat Gran (auto) 0.01 (0.00-0.03) X10*3/uL Absolute Neuts (auto) 4.1 (2.0-8.3) x10*3/uL Absolute Nucleated RBC 0.000 (0.0-0.012) X10*3/uL Nucleated RBC % (auto) 0.0 (0.0-0.2) /100WBC Sodium 144 (135-145) mmol/L Potassium 4.7 (3.3-5.1) mmol/L Chloride 110 H (96-108) mmol/L Carbon Dioxide 26 (22-29) mmol/L Anion Gap 13 (12-20) BUN 18 H (9-16) mg/dL Creatinine 0.91 (0.5-1.4) mg/dL Estim Creat Clear Calc 42.2 Estimated GFR 58 Random Glucose 137 H (60-115) mg/dL Calcium 9.2 (8.4-10.2) mg/dL Total Bilirubin 0.3 (0.0-1.0) mg/dL AST 30 (5-31) U/L ALT 12 (0-31) U/L Alkaline Phosphatase 136 H (39-117) U/L Troponin I High Sens 94.6 H* (<3.5-17.0) ng/L Total Protein 7.6 (6.5-8.0) g/dL Albumin 4.5 (3.5-5.0) g/dL Lipase 23 (8-78) U/L Independent Interpretation I performed an independent interpretation of an: EKG (EKG shows sinus rhythm with a rate of 89 with a left bundle-branch block, no evidence of acute ischemia, no ST elevation, no ectopy. QTC 498. Compared to previous from 09/12/2024 there are no acute morphology changes.) Discharge Plan Discharge Clinical Impression: Esophageal foreign body Qualifiers: Encounter type: initial encounter Qualified Code(s): T18.108A - Unspecified foreign body in esophagus causing other injury, initial encounter Patient Disposition: Home, Self-Care Instructions: Esophageal Foreign Body (ED) Prescriptions: No Action (DME) bedside commode Kit See Rx Instructions .Route Qty: 1 0RF Rx Instructions: As directed (DME) blood-glucose meter [OneTouch Ultra2 Meter] Misc See Rx Instructions .Route Qty: 1 0RF Rx Instructions: test 3 times daily (DME) lancets [OneTouch UltraSoft 2 Lancet] 30 gauge misc See Rx Instructions .Route Qty: 100 12RF Rx Instructions: test 3 times per day insulin glargine U-300 conc [Toujeo SoloStar U-300 Insulin] 300 unit/mL (1.5 mL) insulin pen 20 unit subcut BEDTIME 30 Days Qty: 4.5 0RF losartan 50 mg tablet 50 mg PO DAILY Qty: 90 4RF (DME) Raised toilet seat with arms See Rx Instructions .Route .MEDSUPPLY Qty: 1 0RF Rx Instructions: As directed gabapentin 400 mg capsule 400 mg PO BID Qty: 180 4RF (DME) OneTouch Ultra Test Strip See Rx Instructions .Route Qty: 100 11RF Rx Instructions: test 3 times per day (DME) body wipes See Rx Instructions .Route .MEDSUPPLY Qty: 1 3RF Rx Instructions: As directed (DME) diaper,brief,adult,disposable Misc See Rx Instructions .Route Qty: 100 0RF Rx Instructions: As directed size mediun (DME) Disposable bed pads See Rx Instructions .Route .MEDSUPPLY Qty: 3 3RF Rx Instructions: As directed (DME) Adult pull ups medium See Rx Instructions .Route .MEDSUPPLY Qty: 240 11RF Rx Instructions: As directed carvedilol 6.25 mg tablet 6.25 mg PO BID Qty: 180 3RF Rx Instructions: must administer with a meal/food (DME) Disposable tiesha-pads See Rx Instructions .Route .MEDSUPPLY Qty: 240 11RF Rx Instructions: As directed Trulicity 0.75 mg/0.5 mL pen injector 0.75 mg subcut QWEEK Qty: 2 3RF aspirin [Adult Aspirin Regimen] 81 mg tablet,delayed release (DR/EC) 81 mg PO DAILY Qty: 90 3RF omeprazole 20 mg capsule,delayed release(DR/EC) 20 mg PO DAILY Qty: 90 0RF atorvastatin 20 mg tablet 20 mg PO BEDTIME Qty: 90 2RF tramadol 50 mg tablet 50 mg PO BID PRN (Reason: pain) Qty: 60 0RF meclizine [Motion Sickness Relief(mecliz)] 25 mg tablet 25 mg PO DAILY PRN (Reason: motion sickness) Qty: 14 0RF epinephrine [EpiPen 2-Mariano] 0.3 mg/0.3 mL auto-injector 0.3 mg IM Q10M PRN (Reason: anaphylaxis) Qty: 1 0RF Rx Instructions: for 2 doses dicyclomine 10 mg capsule 10 mg PO BID PRN (Reason: abdominal pain) Qty: 10 0RF Myrbetriq 50 mg tablet extended release 24 hr 50 mg PO DAILY (DME) blood pressure monitor [Blood Pressure Kit] Kit See Rx Instructions .ROUTE .MEDSUPPLY Qty: 1 0RF Rx Instructions: As directed Referrals: Vu Doty MD [Physician, Gastroenterology] Print Language: Serbian
--- NOTE | 2024-11-08 00:52 | ECG_ITS ---
Test Reason : CHEST PAIN Blood Pressure : */* mmHG Vent. Rate : 89 BPM Atrial Rate : 89 BPM P-R Int : 152 ms QRS Dur : 150 ms QT Int : 410 ms P-R-T Axes : 40 -29 93 degrees QTcB Int : 498 ms Normal sinus rhythm Left bundle branch block Abnormal ECG When compared with ECG of 12-Sep-2024 10:46, No significant changes seen Referred By: Russell Dhillon Electronically Signed By: JORGE LIAO
[2024-11-08 01:22] LABS: MANUAL DIFF FLAG NO
[2024-11-08 01:23] LABS: Hematocrit 27.5 % (37.0-47.0); Hemoglobin 8.7 g/dl (12.0-16.0); Imm Gran Abs Auto 0.01 X10*3/uL (0.00-0.03); Imm Gran Pct Auto 0.2 % (0.0-0.4); Lymphocytes Absolute Auto 1.7 X10*3/uL (1.2-4.9); Mean Corpuscular HGB Conc 31.6 g/dl (31.0-35.0); Mean Corpuscular Hemoglobin 27.5 pg (27.0-33.0); Mean Corpuscular Volume 87.0 fL (80.0-98.0); NRBC Abs Auto 0.000 X10*3/uL (0.0-0.012); NRBC Pct Auto 0.0 /100WBC (0.0-0.2); Platelet Count 227 X10*3/uL (160-400); Red Blood Count 3.16 X10*6/uL (4.20-5.50); White Blood Count 6.4 X10*3/uL (4.8-10.8)
[2024-11-08 01:40] LABS: Alanine Aminotransferase 12 U/L (0-31); Albumin Level 4.5 g/dL (3.5-5.0); Alkaline Phosphatase 136 U/L (39-117); Anion Gap 13 (12-20); Aspartate Amino Transferase 30 U/L (5-31); Blood Urea Nitrogen 18 mg/dL (9-16); Calcium 9.2 mg/dL (8.4-10.2); Carbon Dioxide 26 mmol/L (22-29); Chloride 110 mmol/L (96-108); Creatinine Clr Calc Pharmacy 42.2; Estimated Glomerular Filt Rate 58; Lipase 23 U/L (8-78); Potassium 4.7 mmol/L (3.3-5.1); Sodium 144 mmol/L (135-145); Total Protein 7.6 g/dL (6.5-8.0)
[2024-11-08 01:52] LABS: Troponin-I High Sensitivity 94.6 ng/L (<3.5-17.0)
--- NOTE | 2024-11-08 03:10 | PC.NURSE ---
pt attempted PO chanllenege and began to vomit and complain of same feeling of having something stuck in her throat. MD aware, no new orders at this time.
[2024-11-08 04:00] VITALS: BP 168/65; PULSE 84; RESP 14; TEMP 37.1; O2SAT 96
[2024-11-08 07:56] VITALS: BP 169/68; PULSE 85; RESP 15; O2SAT 97
--- NOTE | 2024-11-08 08:29 | PC.NURSE ---
spoke to great grand daughter regarding patient after authorization from patient. Provided update to family. Spoke with MD to ask if we should do a GI consult d/t pt having difficulty keeping food down. MD will see patient this morning.
--- NOTE | 2024-11-08 09:06 | PC.NURSE ---
spoke to patient's contact/caregiver Melonie and provided and update. Pt is waiting to see GI.
[2024-11-08 10:11] VITALS: BP 155/57; PULSE 83; RESP 14; O2SAT 98
--- NOTE | 2024-11-08 10:15 | PC.NURSE ---
pt is calm, cooperative. A+Ox4. Lung sounds clear bilat. Pt denies CP or SOB. Pt denies n/v at this time but still cannot keep anything down, vomits after eating. awaiting GI consult. Pit Inspector at bedside.
--- NOTE | 2024-11-08 11:28 | P.CONAN_ITS ---
HPI - Anesthesia Eval Consult details Narrative: Esophageal food impactiobn PMFSH Active Problems Active Problems: All Active Problems Prolapsed hemorrhoids (Acute) Palpitation (Acute) Chest discomfort (Acute) Diabetic nephropathy with proteinuria (Acute) Abnormal nuclear stress test (Acute) Adnexal mass (Acute) HTN (hypertension) (Acute) Cardiomyopathy (Acute) Mass of right ovary (Acute) Acute UTI (Acute) Hordeolum externum of right upper eyelid (Acute) Hypertriglyceridemia (Acute) Cough (Acute) Upper respiratory tract infection (Acute) Anemia (Acute) Preoperative examination (Acute) Preoperative cardiovascular examination (Acute) Pre-operative clearance (Acute) Irritable bowel syndrome with diarrhea (Acute) Prolapsed internal hemorrhoids (Acute) Chronic kidney disease, stage III (moderate) (Acute) Obesity (BMI 30-39.9) (Acute) Mixed hyperlipidemia (Acute) GERD (gastroesophageal reflux disease) (Acute) Left bundle branch block (Acute) Hypertensive heart disease (Acute) Bladder prolapse (Acute) Diabetes mellitus (Acute) Past Medical History Medical History Prolapsed hemorrhoids Diabetic nephropathy with proteinuria Hyperlipidemia HTN (hypertension) IBS (irritable bowel syndrome) Prolapsed internal hemorrhoids Chronic kidney disease, stage III (moderate) Obesity (BMI 30-39.9) Mixed hyperlipidemia Hypertensive heart disease Left bundle branch block Bladder prolapse Diabetes mellitus GERD (gastroesophageal reflux disease) Family History Family History Father No problems noted. Mother No problems noted. Family/Other Lung cancer Esophagus cancer Other Mental health disorder Substance use disorder Family history of problems with anesthesia: No Surgical History Surgical History History of bladder repair surgery History of ERCP History of bilateral cataract extraction History of cholecystectomy History of excision of mass History of colonoscopy History of ankle surgery History of Problems with Anesthesia: No Social History Social History Household Members: Family Housing: House Do you presently have visiting nurse or other home services: Yes (every 6 months) Alcohol intake: never Patient Tobacco Use Status: Former Tobacco user Smoked in Last 30 Days: No e-Cigarette/Vaping Use: Never Used Second Hand Smoke Exposure: No Use of substances other than those prescribed or required for medical reasons: No Advance Directives: No Advance Directives Information Provided: Yes Advance Directives Date on File: 04/19/23 service: No Current occupational status: disabled Cognitive needs: Yes (cane/walker) Hearing needs: No Vision needs: Yes (glasses) Meds Allergies Allergy/AdvReac Type Severity Reaction Status Date / Time Iodinated Contrast Media (IV Allergy Unknown UNKNOWN Verified 11/07/24 23:19 CONTRAST) Home Medications ?Medication ?Instructions ?Recorded ?Confirmed ?Last Taken ?Type mirabegron 50 mg tablet,extended 50 mg PO DAILY 11/06/24 04/18/23 History release 24 hr (Myrbetriq) Exam Height,Weight and Vital Signs: Height 5 ft 8 in Weight 65.8 kg Last Vital Signs Temp 98.7 F 11/08/24 04:00 Pulse 83 11/08/24 10:11 Resp 14 11/08/24 10:11 BP 155/57 H 11/08/24 10:11 Pulse Ox 98 11/08/24 10:11 O2 Del Method Room Air 11/08/24 10:11 Pertinent Lab Results Pertinent Lab Results: Laboratory Tests 11/08/24 01:15 WBC 6.4 RBC 3.16 L Hgb 8.7 L Hct 27.5 L MCV 87.0 MCH 27.5 MCHC 31.6 RDW 13.8 Plt Count 227 MPV 10.0 Immature Gran % (Auto) 0.2 Neut % (Auto) 64.6 Lymph % (Auto) 25.9 [place] % (Auto) 7.1 Eos % (Auto) 2.0 Baso % (Auto) 0.2 Lymph # (Auto) 1.7 [place] # (Auto) 0.5 Eos # (Auto) 0.1 Baso # (Auto) 0.0 Abs Immat Gran (auto) 0.01 Absolute Neuts (auto) 4.1 Absolute Nucleated RBC 0.000 Nucleated RBC % (auto) 0.0 Sodium 144 Potassium 4.7 Chloride 110 H Carbon Dioxide 26 Anion Gap 13 BUN 18 H Creatinine 0.91 Estim Creat Clear Calc 42.2 Estimated GFR 58 Random Glucose 137 H Calcium 9.2 Total Bilirubin 0.3 AST 30 ALT 12 Alkaline Phosphatase 136 H Troponin I High Sens 94.6 H* Total Protein 7.6 Albumin 4.5 Lipase 23 Airway Mallampati Class: II TM Dist: >3cm Neck ROM: Full Denture: Upper and Lower Loose/Missing/Broken Teeth: No Heart: RRR Lungs: CTA Assessment and Plan Assessment Anesthesia Assessment: Anesthesia Plan Discussed, Smoking Cess. Discussed and Chart Reviewed Final Anesthetic Review Family History of Problems with Anesthesia: No History of Problems with Anesthesia: No NPO: No ASA Class: IV and Emergency Final Preanesthetic Review: No Changes in Pt Med Stat, Meds/Allgs Chart Reviewed, Consent Obtained/Reviewed and Anes Risks/Benef Reviewed Patient Risk: High Procedure Risk: Low Anesthetic Plan Anesthetic Plan: TIVA Disposition: Standard PACU
--- NOTE | 2024-11-08 11:34 | MHC.SHP ---
Pre-Procedural Eval Section A - 24 Hr Update-Section A only Date of Service: 11/08/24 The patient is an INPATIENT: No The patient has been examined within 24 hours of the surgical procedure. The History & Physical has been completed within 30 days and I have reviewed it.: Yes Section B - Complete if H&P > 30 days Chief Complaint: unknown specimen stuck in throat -ems Allergies: Allergies Allergy/AdvReac Type Severity Reaction Status Date / Time Iodinated Contrast Media (IV Allergy Unknown UNKNOWN Verified 11/07/24 23:19 CONTRAST) Plan I have reviewed the history and physical and performed a pertinent physical examination on my patient. No changes have occurred unless specified. Time Spent With Patient Time: Total time managing care of this patient today ____ minutes.
--- NOTE | 2024-11-08 11:34 | PM.EVENT ---
Event Note Date of Service: 11/08/24 Event Note: GI Consult-Full note dictated. History from patient with family and medical cost consultant at the bedside. Imp: 89 yo female with esophageal obstruction from fried plantains that has been refractory to medical therapy. Rec: Upper endoscopy today. Full consent has been obtained from her for this, including risks of bleeding and perforation. The patient and her family are comfortable with this plan. Thanks Time Spent With Patient Time: Total time managing care of this patient today ____ minutes.
--- NOTE | 2024-11-08 12:18 | CONS_ITS ---
DATE OF SERVICE: 11/08/2024 REASON FOR CONSULTATION: Esophageal obstruction from food. HISTORY OF PRESENT ILLNESS: History has been obtained from the patient with a medical lab tech instructor, as well as with her family at the bedside helping to interpret. The patient is an 89-year-old female, who had been feeling well up until having fried plantains yesterday. She subsequently developed an esophageal obstruction and has been unable to swallow any secretions or water. She denies any previous history of this. She did undergo an upper endoscopy and colonoscopy in [address] Bob, which were unremarkable. There was no evidence of any esophagitis or esophageal stricture noted. Prior to yesterday, she did not have any trouble eating or swallowing. She denies any chronic heartburn. Her bowel movements are fairly regular and there has been no sign of melena nor hematochezia. She has had some chest discomfort in relation to the obstruction. She was given some glucagon and nitroglycerin in the ER, but without any relief of the obstruction. She is still unable to swallow secretions. MEDICATIONS: At home included Trulicity, insulin, 81 mg aspirin, atorvastatin, carvedilol, dicyclomine p.r.n., gabapentin, losartan, omeprazole, tramadol. PAST MEDICAL HISTORY: Surgeries include what sounds like a bladder suspension, cholecystectomy, and cataracts. Medical problems include insulin-dependent diabetes mellitus, hyperlipidemia, hypertension. There is no report of MA, stroke, or lung disease. She does have a neuropathy. She does have some irritable bowel syndrome. SOCIAL HISTORY: She lives with her family. She does not smoke, nor use any significant amounts of alcohol. FAMILY HISTORY: Noncontributory. REVIEW OF SYSTEMS: CONSTITUTIONAL: Prior to the episode yesterday, the food becoming stuck in her esophagus, she had been feeling well with good energy and good appetite. SKIN: No rash. No pruritus. CARDIAC: No chest pain. PULMONARY: No coughing or hemoptysis. GI: As above. PHYSICAL EXAMINATION: GENERAL: The patient is a pleasant alert comfortable-appearing female. She is using a bag to spit her saliva intermittently. HEENT: Anicteric sclerae. Moist mucous membranes. NECK: Supple without lymphadenopathy or crepitus. CHEST: Clear without crepitus on the chest wall. CARDIAC: S1, S2. ABDOMEN: Soft, nondistended, nontender without mass. EXTREMITIES: Had edema. NEUROLOGICAL: She seems to be alert and oriented, as well as answering questions appropriately. LABORATORY DATA: White blood cell count 6.4, hemoglobin 8.7. Hemoglobin in August was 9.4. MCV 87, platelets 227,000. Normal electrolytes. BUN 18, creatinine 0.9. Normal LFTs except for alkaline phosphatase 136. She does have elevated troponin levels, which actually seems to be chronic looking at labs from May and August of this year. The troponin this morning was 94.6. Lipase was normal. IMPRESSION: The patient is 89-year-old female with a persistent esophageal obstruction from food. Given the refractory symptoms to medication, she will undergo upper endoscopy today for further evaluation and treatment. Full consent was obtained from her and her family for this, including risks of bleeding and perforation. The procedure will be done with monitored anesthesia care. She will continue on her outpatient omeprazole as well. Depending upon the results of the endoscopy and the clinical course in the ER, she may need overnight observation, but that will be decided upon by the ER staff and the hospitalist service if need be. The patient and her family are comfortable with this plan. Thank you for the consultation. MD WARREN Whittington/KERRIE / [id number]
[2024-11-08 12:28] VITALS: BP 137/47; PULSE 88; RESP 14; TEMP 36.3; O2SAT 95
--- NOTE | 2024-11-08 12:34 | PM.OP ---
Brief Operative Note Date of Service: 11/08/24 Pre-op diagnosis: Esophageal obstruction Post-op diagnosis: same Procedure: EGD with removal of foreign body Surgeon: Vu Doty MD Anesthesia: MAC Was an Hand Tile Maker used for this Procedure?: No Estimated blood loss (mL): 2.0 Pathology: none sent Condition: stable Disposition: PACU
--- NOTE | 2024-11-08 12:38 | PM.EVENT ---
Event Note Date of Service: 11/08/24 Event Note: GI-EGD with removal of foreign body Findings: 1. Food bolus at 25 to 30 cm--broken up with the biopsy forceps and pushed easily into the stomach. 2. Small hiatal hernia noted 3. EG Junction at 35cm was patent 4. Mucosal irritation and friability from food in the distal esophagus 5. Stomach and duodenum WNL Rec: Continue omeprazole. Eat soft diet and eat carefully. F/U with PCP and see GI as needed. D/W her grandaughterЕкатерина, over the phone. She will relay this to the rest of her family. Thanks Time Spent With Patient Time: Total time managing care of this patient today ____ minutes.
[2024-11-08 12:43] VITALS: BP 166/75; PULSE 83; RESP 15; O2SAT 94
[2024-11-08 12:58] VITALS: BP 177/71; PULSE 79; RESP 15; TEMP 36.7; O2SAT 93
--- NOTE | 2024-11-08 13:16 | PC.NURSE ---
unable to enter discharge order in computer. orders done on paper. pt discharged with family at 1315
--- NOTE | 2024-11-08 13:28 | OP_ITS ---
DATE OF SERVICE: 11/08/2024 SURGEON: Vu Doty MD INDICATIONS: The patient presents for evaluation of dysphagia after eating plantains yesterday. Full consent has been obtained from her with a biomedical analytical scientist and her family present, including risks of bleeding and perforation. PREOPERATIVE DIAGNOSIS: POSTOPERATIVE DIAGNOSIS: PROCEDURE PERFORMED: Esophagogastroduodenoscopy with removal of esophageal food bolus. ESTIMATED BLOOD LOSS: COMPLICATIONS: ANESTHESIA: Monitored anesthesia care. ASSISTANTS: SPECIMENS: PREOPERATIVE DIAGNOSES: Dysphagia and esophageal obstruction from food. POSTOPERATIVE DIAGNOSES: Dysphagia and esophageal obstruction from food, hiatal hernia. DESCRIPTION OF PROCEDURE: The patient was placed in the left lateral decubitus position. The Olympus video gastroscope was passed in the posterior oropharynx and upper esophagus under direct vision. The food bolus was seen at approximately 30 cm. This was broken up with a biopsy forceps and then easily pushed into the stomach. The gastroesophageal junction appeared patent at 35 cm and there was no sign of any stricture nor mass. The scope was advanced to pylorus and the duodenum was cannulated to the descending portion. The duodenum including the bulb appeared normal. The scope was withdrawn back from the stomach. The gastric antrum and body appeared normal with good peristalsis. The scope was retroflexed visualizing the proximal stomach carefully, which appeared normal, without any sign of mass or ulceration. I was able to visualize the food bolus in the proximal stomach. The scope was straightened and withdrawn back from the esophagus. The distal esophageal mucosa was somewhat friable and erythematous. There was no overlying ulcerations nor mass. The remaining food particles were pushed into the stomach as well. At the end of the procedure, the esophagus was free of any residual food. The esophagus was somewhat tortuous, but I did not visualize any proximal lesions. The scope was withdrawn from the patient. She tolerated the procedure well and was returned to recovery area in stable condition. IMPRESSION: 1. Esophageal food bolus removal. 2. Hiatal hernia. PLAN: The patient will be discharged later today. She has been instructed to continue her daily omeprazole. She has been advised to stay on a soft diet and to eat carefully. She has been advised to call if she needs a prescription for omeprazole. She was also advised to call our office, as she does see Dr. Bob as an outpatient, and to let us know if she is having any trouble swallowing. If things remain stable, she could otherwise see us as needed. This has been discussed with Екатерина, a granddaughter. She will relay this information to the family as well and she was given discharge instructions in this regard as well. MD WARREN Whittington/KERRIE / [id number] MTDD
== END 2024-11-08 11:00 ==
LOC: HO.ED 11-08 13:33 → HO.SSS 11-08 13:45
PROVIDERS: Physician Assistant; Emergency Provider Emergency Medicine; Visit Provider Internal Medicine
PROC: 0DJ08ZZ Inspection of Upper Intestinal Tract, Via Natural or Artificial Opening Endoscopic (ICD-10-PCS; CPT 43235; principal; 2024-11-08 11:30)
DX: T18.128A Food in esophagus causing other injury, initial encounter (principal); K22.4 Dyskinesia of esophagus; K44.9 Diaphragmatic hernia without obstruction or gangrene; I44.7 Left bundle-branch block, unspecified; E11.22 Type 2 diabetes mellitus with diabetic chronic kidney disease; I13.0 Hypertensive heart and chronic kidney disease with heart failure and stage 1 through stage 4 chronic kidney disease, or unspecified chronic kidney disease; N18.30 Chronic kidney disease, stage 3 unspecified; I50.33 Acute on chronic diastolic (congestive) heart failure; E78.5 Hyperlipidemia, unspecified; D64.9 Anemia, unspecified; Z79.82 Long term (current) use of aspirin; Z79.85 Long-term (current) use of injectable non-insulin antidiabetic drugs; Z79.4 Long term (current) use of insulin; Z79.02 Long term (current) use of antithrombotics/antiplatelets; Z79.899 Other long term (current) drug therapy; Z87.891 Personal history of nicotine dependence
CPT/HCPCS: 43235; 36415; 80053; 83690; 84484; 85025; 93005; 96374; 96375; 99284; 99285; J1610; J2003; J2405; J2704; J3010

== ENCOUNTER → 2024-11-08 00:52 | Outpatient (BNV) | payer OTHER, SELFPAY | PROVIDERS: Emergency Provider Emergency Medicine; Visit Provider Internal Medicine | DX: I44.7 Left bundle-branch block, unspecified (principal) | CPT/HCPCS: 93010 ==

== ENCOUNTER 2024-11-08 19:17 | Inpatient (IN) | payer OTHER, SELFPAY ==
--- NOTE | ~2024-11-08 | CT_ITS ---
CLINICAL HISTORY: Post Endoscopy Fever; R o Perf --- Additional Notes or Special Instructions: Contrast Allergy CT chest without contrast Comparison: None provided Findings: Multiple bilateral pulmonary nodules. A few of these demonstrate a somewhat ground-glass appearance. Findings raise concern for metastatic disease. Atypical pneumonia could have a similar appearance. No focal infiltrate is identified. No significant mediastinal adenopathy. No significant free pleural fluid. Degenerative change in thoracic spine. No significant focal bony abnormalities. Heterogeneous enlarged thyroid gland. There is tracheal deviation towards the right. Impression: Multifocal pulmonary nodules and ground-glass densities Question metastatic disease, atypical pneumonia is possible This document has been electronically signed by: Terrance Gomez MD on 11/08/2024 21:45:46
--- NOTE | ~2024-11-08 | CT_ITS ---
CLINICAL HISTORY: Post Endoscopy Fever; R o Perf --- Additional Notes or Special Instructions: Contrast Allergy CT abdomen and pelvis without contrast Comparison: 09/12/2024 Findings: Chest findings discussed in chest CT report. No acute bony abnormality. No free air or bowel distention. Liver and spleen within normal limits. Pancreas and adrenal glands unremarkable. Cholecystectomy. No bilateral renal stone or hydronephrosis. No focal renal abnormality or ureteral dilation. No evidence for aortic aneurysm. No free fluid or adenopathy in the pelvis. No diverticulitis. Appendix unremarkable. Uterus normal size. No adnexal abnormality. Impression: No acute processes This document has been electronically signed by: Terrance Gomez MD on 11/08/2024 21:45:02
[2024-11-08 20:03] VITALS: BP 140/92; BP 151/43; PULSE 110; PULSE 115; RESP 15; TEMP 39.1; O2SAT 93; O2SAT 94; BMI 28.8
--- NOTE | 2024-11-08 20:23 | ED_ITS ---
HPI - General Adult General Chief complaint: Weakness Stated complaint: possible sepsis Time Seen by Provider: 11/08/24 20:14 Source: patient Mode of arrival: ambulatory Limitations: language barrier ([employer] services utilized) History of Present Illness ED Provider: Russell TAYLOR HPI narrative: The patient is an 89-year-old female returning to the ED after she was seen here yesterday evening for esophageal food bolus, requiring endoscopy which was performed earlier today. The patient was discharged from the hospital however upon returning home patient began endorsing generalized body aches, weakness, and subjective fever, prompting return to the ED. The patient denies associated abdominal pain/chest pain. Related Data Home Medications ?Medication ?Instructions ?Recorded ?Confirmed mirabegron 50 mg tablet,extended 50 mg PO DAILY 11/06/24 release 24 hr (Myrbetriq) Previous Rx's ?Medication ?Instructions ?Recorded epinephrine 0.3 mg/0.3 mL 0.3 mg (0.3 mL) IM Q10M PRN 03/26/20 injection, auto-injector (EpiPen anaphylaxis #1 ea 2-Mariano) commode (bedside commode) #1 ea 06/12/21 blood-glucose meter (OneTouch #1 ea 12/31/22 Ultra2 Meter) lancets 30 gauge (OneTouch #100 ea 12/31/22 UltraSoft 2 Lancet) insulin glargine U-300 conc 300 20 unit (0.0667 mL) de león bcut BEDTIME 05/30/23 unit/mL (1.5 mL) subcutaneous pen 30 days #4.5 mL (Toujeo SoloStar U-300 Insulin) losartan 50 mg tablet 50 mg PO DAILY #90 tabs 11/30 05/25 Raised toilet seat with arms #1 ea 01/01/24 gabapentin 400 mg capsule 400 mg PO BID #180 caps 11/22 blood sugar diagnostic (OneTouch #100 ea 01/14/24 Ultra Test strips) Disposable bed pads #3 ea 06/11/24 body wipes #1 ea 06/11/24 diaper,brief,adult,disposable #100 ea 06/11/24 Adult pull ups #240 ea 06/17/24 carvedilol 6.25 mg tablet 6.25 mg PO BID #180 tabs 04/ 09/25 Disposable tiesha-pads #240 ea 07/17/24 dulaglutide 0.75 mg/0.5 mL 0.75 mg (0.5 mL) subcut QWE EK #2 mL 08/11/24 [facility] dicyclomine 10 mg capsule 10 mg PO BID PRN abdominal p ain 09/12/24 #10 caps aspirin 81 mg tablet,delayed 81 mg PO DAILY #90 tabs 0 10/12/24 release (Adult Aspirin Regimen) omeprazole 20 mg capsule,delayed 20 mg PO DAILY #90 ca ps 10/20/24 release atorvastatin 20 mg tablet 20 mg PO BEDTIME #90 tabs tramadol 50 mg tablet 50 mg PO BID PRN pain #60 ta bs 11/02/24 meclizine 25 mg tablet (Motion 25 mg PO DAILY PRN blanca on sickness 11/04/24 Sickness Relief (meclizine)) #14 tabs blood pressure monitor (Blood #1 ea 11/06/24 Pressure Kit) Allergies Allergy/AdvReac Type Severity Reaction Status Date / Time Iodinated Contrast Media (IV Allergy Unknown UNKNOWN Verified 11/08/24 20:06 CONTRAST) Review of Systems 2 Review of Systems: Yes all other systems are reviewed and are negative [facility] Past Medical History Medical History Prolapsed hemorrhoids Diabetic nephropathy with proteinuria Hyperlipidemia HTN (hypertension) IBS (irritable bowel syndrome) Prolapsed internal hemorrhoids Chronic kidney disease, stage III (moderate) Obesity (BMI 30-39.9) Mixed hyperlipidemia Hypertensive heart disease Left bundle branch block Bladder prolapse Diabetes mellitus GERD (gastroesophageal reflux disease) Surgical History History of bladder repair surgery History of ERCP History of bilateral cataract extraction History of cholecystectomy History of excision of mass History of colonoscopy History of ankle surgery Family History Family History Father No problems noted. Mother No problems noted. Family/Other Lung cancer Esophagus cancer Other Mental health disorder Substance use disorder Social History Social History Household Members: Family Housing: House Do you presently have visiting nurse or other home services: Yes (every 6 months) Alcohol intake: never Patient Tobacco Use Status: Former Tobacco user Smoked in Last 30 Days: No e-Cigarette/Vaping Use: Never Used Second Hand Smoke Exposure: No Use of substances other than those prescribed or required for medical reasons: No Advance Directives: No Advance Directives Information Provided: No Advance Directives Date on File: 04/19/23 service: No Current occupational status: disabled Cognitive needs: Yes (cane/walker) Hearing needs: No Vision needs: Yes (glasses) Physical Exam ED Vital Signs: Vital Signs - 24 hr 11/08/24 20:03 11/08/24 20:48 11/08/24 21:16 Temperature 102.4 F H 100.9 F H 101.6 F H Pulse Rate 110 H 102 H Respiratory Rate 15 19 Blood Pressure 151/43 H 132/52 L Pulse Oximetry 93 94 Oxygen Delivery Method Room Air Room Air 11/08/24 21:39 Temperature 100.9 F H Pulse Rate 100 Respiratory Rate 18 Blood Pressure 127/67 Pulse Oximetry 96 Oxygen Delivery Method Room Air BMI result Body Mass Index 28.8 CONSTITUTIONAL: The patient appears non-toxic, well nourished and in no acute distress. Vital signs as documented. HEAD: Atraumatic, normocephalic. EYES: EOMs grossly intact, pupils equal, conjunctiva clear, no exudate. ENT: Nares patent, no discharge. Airway patent, no audible stridor, visible mucosa is pink and moist without noted lesions. NECK: Trachea is midline, no obvious masses or gross abnormalities. CHEST: Symmetric movement, normal appearance. LUNGS: LS present and CTAB, no w/r/r. Non-labored work of breathing. CARDIAC: Regular Rhythm, S1/S2 appreciated, no murmurs, rubs or gallops. ABDOMEN: Abdomen soft and non-tender x4 quadrants, no palpable masses or organomegaly. : Deferred. EXTREMITIES: Normal tone, moves all extremities spontaneously without reported pain. No obvious acute injury or deformity noted. NEURO: Alert and oriented x3, CN II-XII appear grossly intact. Cerebellar Functioning grossly intact. No obvious sensory or motor deficits. Speech clear and appropriate. PSYCH: normal affect, appropriate eye contact, fluid speech, with appropriate response to questioning. No reported suicidality or homicidality. SKIN: Warm, dry, color appropriate, normal turgor. No rashes noted. Medications Administered Discontinued Medications Generic Name Dose Route Start Last Admin Trade Name Elba PRN Reason Stop Dose Admin Acetaminophen 1,000 mg in 100 mls @ 400 mls/hr 11/08/24 20:14 11/08/24 21:38 Ofirmev IV 11/08/24 20:28 Infused ONCE ONE Infusion Sodium Chloride 1,000 mls @ 999 mls/hr 11/08/24 20:15 11/08/24 21:39 Ns IV 11/08/24 21:15 Infused .Q1H1M RAMIN Infusion Medical Decision Making Medical Decision Making [facility] Narrative: 10:51 PM 11/08/2024 (Merced TAYLOR): The patient is an 89-year-old female returning to the ED after she was seen here yesterday evening for esophageal food bolus, requiring endoscopy which was performed earlier today. The patient was discharged from the hospital however upon returning home patient began endorsing generalized body aches, weakness, and subjective fever, prompting return to the ED. The patient was found to have a fever of 102.4, and tachycardia. Patient's laboratory evaluation showed stable anemia of chronic disease, without leukocytosis, lactic acidosis, electrolyte abnormality, or ANG. Patient was denying any recurrent abdominal or chest pain, fever initially thought to be post anesthesia, however a CT abdomen and pelvis was obtained to evaluate for perforation or other postoperative complication, there is no evidence of perforation, however CT chest does show ground-glass opacities consistent with atypical pneumonia. Given the patient's recent esophageal food bolus and endoscopy, there was concern for aspiration pneumonia. At this time we will suspect sepsis due to fever and tachycardia, patient will be treated with full 30 cc/kg fluid bolus and we will admit and treat empirically for suspected aspiration pneumonia. Admission/Observation Consideration of admission/observation: Escalation of care including admission/observation considered Lab Data [facility] Lab Attestation statement: I reviewed the patient's lab results. 11/08/24:11/08/24: Labs: Lab Results 11/08/24 Range/Units 20:25 WBC 9.9 (4.8-10.8) X10*3/uL RBC 3.09 L (4.20-5.50) X10*6/uL Hgb 8.3 L (12.0-16.0) g/dl Hct 27.1 L (37.0-47.0) % MCV 87.7 (80.0-98.0) fL MCH 26.9 L (27.0-33.0) pg MCHC 30.6 L (31.0-35.0) g/dl RDW 13.8 (11.0-16.0) % Plt Count 204 (160-400) X10*3/uL MPV 10.7 (9.4-12.3) fL Immature Gran % (Auto) 0.4 (0.0-0.4) % Neut % (Auto) 91.0 H (45-73) % Lymph % (Auto) 4.7 L (20-40) % Hubbard % (Auto) 3.5 (2-11) % Eos % (Auto) 0.1 (0-4) % Baso % (Auto) 0.3 (0-2) % Lymph # (Auto) 0.5 L (1.2-4.9) X10*3/uL Hubbard # (Auto) 0.4 (0.1-1.2) X10*3/uL Eos # (Auto) 0.0 (0.0-0.4) X10*3/uL Baso # (Auto) 0.0 (0.0-0.2) X10*3/uL Abs Immat Gran (auto) 0.04 H (0.00-0.03) X10*3/uL Absolute Neuts (auto) 9.0 H (2.0-8.3) x10*3/uL Absolute Nucleated RBC 0.000 (0.0-0.012) X10*3/uL Nucleated RBC % (auto) 0.0 (0.0-0.2) /100WBC Smear Tech's Comments VERIFIED Sodium 141 (135-145) mmol/L Potassium 4.1 (3.3-5.1) mmol/L Chloride 108 (96-108) mmol/L Carbon Dioxide 23 (22-29) mmol/L Anion Gap 14 (12-20) BUN 18 H (9-16) mg/dL Creatinine 0.96 (0.5-1.4) mg/dL Estim Creat Clear Calc 45.6 Estimated GFR 55 Random Glucose 244 H (60-115) mg/dL Lactic Acid 1.4 (0.5-2.0) mmol/L Calcium 8.7 (8.4-10.2) mg/dL Total Bilirubin 0.3 (0.0-1.0) mg/dL AST 22 (5-31) U/L ALT 11 (0-31) U/L Alkaline Phosphatase 117 (39-117) U/L Total Protein 6.9 (6.5-8.0) g/dL Albumin 4.0 (3.5-5.0) g/dL Radiology Impression Discussion of test interpretation with radiology: I have reviewed the radiologist's reading. Radiologist Impression: CT abdomen and pelvis without contrast Comparison: 09/12/2024 Findings: Chest findings discussed in chest CT report. No acute bony abnormality. No free air or bowel distention. Liver and spleen within normal limits. Pancreas and adrenal glands unremarkable. Cholecystectomy. No bilateral renal stone or hydronephrosis. No focal renal abnormality or ureteral dilation. No evidence for aortic aneurysm. No free fluid or adenopathy in the pelvis. No diverticulitis. Appendix unremarkable. Uterus normal size. No adnexal abnormality. Impression: No acute processes This document has been electronically signed by: Terrance Gomez MD on 11/08/2024 21:45:02 CT chest without contrast Comparison: None provided Findings: Multiple bilateral pulmonary nodules. A few of these demonstrate a somewhat ground-glass appearance. Findings raise concern for metastatic disease. Atypical pneumonia could have a similar appearance. No focal infiltrate is identified. No significant mediastinal adenopathy. No significant free pleural fluid. Degenerative change in thoracic spine. No significant focal bony abnormalities. Heterogeneous enlarged thyroid gland. There is tracheal deviation towards the right. Impression: Multifocal pulmonary nodules and ground-glass densities Question metastatic disease, atypical pneumonia is possible This document has been electronically signed by: Terrance Gomez MD on 11/08/2024 21:45:46 External Record Review External record reviewed: Outpatient record Discharge Plan Discharge Clinical Impression: Aspiration pneumonia Qualifiers: Aspiration pneumonia type: due to regurgitated food Laterality: bilateral Lung location: unspecified part of lung Qualified Code(s): J69.0 - Pneumonitis due to inhalation of food and vomit Patient Disposition: Admitted As Inpatient Print Language: Kyrgyz
--- OUTSIDE RECORDS SUMMARY | 2024-11-08 20:38 | XMS_ITS | Clinical Summary ---
Author Organization [employer] Address [address] [place] [address] Care Team Providers Care Detasseling Crew Supervisor Name Role Phone Unavailable Primary Care Provider [...] complete this topic Insurance [facility] [employer] (HMO D-SNP) [employer] [id number]
[2024-11-08 20:39] LABS: Hematocrit 27.1 % (37.0-47.0); Hemoglobin 8.3 g/dl (12.0-16.0); Imm Gran Abs Auto 0.04 X10*3/uL (0.00-0.03); Imm Gran Pct Auto 0.4 % (0.0-0.4); Lymphocytes Absolute Auto 0.5 X10*3/uL (1.2-4.9); MANUAL DIFF FLAG SCAN; Mean Corpuscular HGB Conc 30.6 g/dl (31.0-35.0); Mean Corpuscular Hemoglobin 26.9 pg (27.0-33.0); Mean Corpuscular Volume 87.7 fL (80.0-98.0); NRBC Abs Auto 0.000 X10*3/uL (0.0-0.012); NRBC Pct Auto 0.0 /100WBC (0.0-0.2); Platelet Count 204 X10*3/uL (160-400); Red Blood Count 3.09 X10*6/uL (4.20-5.50); SCAN SMEAR FLAG 1; White Blood Count 9.9 X10*3/uL (4.8-10.8)
[2024-11-08 20:48] VITALS: TEMP 38.3
[2024-11-08 20:58] LABS: Alanine Aminotransferase 11 U/L (0-31); Albumin Level 4.0 g/dL (3.5-5.0); Alkaline Phosphatase 117 U/L (39-117); Anion Gap 14 (12-20); Aspartate Amino Transferase 22 U/L (5-31); Blood Urea Nitrogen 18 mg/dL (9-16); Calcium 8.7 mg/dL (8.4-10.2); Carbon Dioxide 23 mmol/L (22-29); Chloride 108 mmol/L (96-108); Creatinine Clr Calc Pharmacy 45.6; Estimated Glomerular Filt Rate 55; Potassium 4.1 mmol/L (3.3-5.1); Sodium 141 mmol/L (135-145); Total Protein 6.9 g/dL (6.5-8.0)
[2024-11-08 21:16] VITALS: BP 132/52; PULSE 102; RESP 19; TEMP 38.7; O2SAT 94
[2024-11-08 21:39] VITALS: BP 127/67; PULSE 100; RESP 18; TEMP 38.3; O2SAT 96
[2024-11-09] VITALS (9 sets, daily range): BP systolic 112–194; BP diastolic 36–75; PULSE 80–96; RESP 12–18; TEMP 36.4–37.2; O2SAT 95–100
--- NOTE | 2024-11-09 00:03 | P.HPHOSP_ITS ---
History of Present Illness Date of Service: 11/09/24 Chief Complaint: fever This has a 89-year-old female with pertinent history of insulin-dependent diabetes mellitus with neuropathy, hypertension, CKD stage 3, gastroesophageal reflux disease, urinary incontinence, mixed hyperlipidemia who presents to the emergency department for evaluation of fever. Patient was seen in the ER yesterday for sensation of food being stuck in her throat and underwent EGD with removal of foreign body on 11/08 by gastroenterology. Patient states she started having fever with chills on the day of presentation. Has ongoing difficulty with swallowing both solids and liquids and intermittently has pain with swallowing. Patient states this has been going on for a while and she has lost about 50 lb over unknown time. No dyspnea, abdominal pain. She denies chest pain, palpitations, changes in urinary or bowel habits. History obtained with the help of exterminator helper termite. In the emergency department, patient was found to be septic and imaging concerning for multifocal pneumonia. Review of Systems 2 Constitutional: Constitutional: Reports chills, Reports fatigue, Reports fever(s) and Reports malaise ENT: Reports dysphagia and Reports odynophagia Cardiovascular: Cardiovascular: Reports no additional cardiovascular complaints Gastrointestinal: Gastrointestinal: Reports dysphagia and Reports odynophagia Genitourinary: Genitourinary: Reports no additional female genitourinary complaints Endocrine: Endocrine: Reports fatigue PMFSH Medical History Prolapsed hemorrhoids Diabetic nephropathy with proteinuria Hyperlipidemia HTN (hypertension) IBS (irritable bowel syndrome) Prolapsed internal hemorrhoids Chronic kidney disease, stage III (moderate) Obesity (BMI 30-39.9) Mixed hyperlipidemia Hypertensive heart disease Left bundle branch block Bladder prolapse Diabetes mellitus GERD (gastroesophageal reflux disease) Family History Father No problems noted. Mother No problems noted. Family/Other Lung cancer Esophagus cancer Other Mental health disorder Substance use disorder Surgical History History of bladder repair surgery History of ERCP History of bilateral cataract extraction History of cholecystectomy History of excision of mass History of colonoscopy History of ankle surgery Social History Household Members: Family Housing: House Do you presently have visiting nurse or other home services: Yes (every 6 months) Alcohol intake: never Patient Tobacco Use Status: Former Tobacco user Smoked in Last 30 Days: No e-Cigarette/Vaping Use: Never Used Second Hand Smoke Exposure: No Use of substances other than those prescribed or required for medical reasons: No Advance Directives: No Advance Directives Information Provided: No Advance Directives Date on File: 04/19/23 service: No Current occupational status: disabled Cognitive needs: Yes (cane/walker) Hearing needs: No Vision needs: Yes (glasses) Meds Allergies Allergy/AdvReac Type Severity Reaction Status Date / Time Iodinated Contrast Media (IV Allergy Unknown UNKNOWN Verified 11/08/24 20:06 CONTRAST) Active Medications: Current Medications Doxycycline Hyclate 100 mg/ (Sodium Chloride) 250 mls @ 166.67 mls/hr IV ONCE ONE Stop: 11/09/24 00:28 Last Admin: 11/08/24 23:47 Dose: 166.67 mls/hr Sodium Chloride (Ns) 1,600 mls @ 999 mls/hr IV .Q1H37M RAMIN Stop: 11/09/24 00:51 Last Admin: 11/08/24 23:49 Dose: 999 mls/hr Home Medications ?Medication ?Instructions ?Recorded ?Confirmed ?Last Taken ?Type mirabegron 50 mg tablet,extended 50 mg PO DAILY 11/06/24 04/18/23 History release 24 hr (Myrbetriq) Physical Exam 2 Vital Signs and Narrative: Vital Signs: Last Vital Signs Temp 100.9 F H 11/08/24 21:39 Pulse 100 11/08/24 21:39 Resp 18 11/08/24 21:39 BP 127/67 11/08/24 21:39 Pulse Ox 96 11/08/24 21:39 O2 Del Method Room Air 11/08/24 21:39 BMI result Body Mass Index 28.8 Const: Other: Elderly female lying in bed in no distress Neck supple, no JVD Regular rate and rhythm, S1-S2 heard Bilateral crackles present without wheezing Abdomen soft nontender, no guarding, no rigidity Patient is awake, alert and oriented x3 ; no focal motor deficit Psych: Normal mood No pedal edema Results Labs 11/08/24 20:25 11/08/24 20:25 Labs: Laboratory Results - last 24 hr 11/08/24 20:25 MCV 87.7 MCH 26.9 L MCHC 30.6 L RDW 13.8 Plt Count 204 MPV 10.7 Immature Gran % (Auto) 0.4 Neut % (Auto) 91.0 H Lymph % (Auto) 4.7 L [place] % (Auto) 3.5 Eos % (Auto) 0.1 Baso % (Auto) 0.3 Lymph # (Auto) 0.5 L [place] # (Auto) 0.4 Eos # (Auto) 0.0 Baso # (Auto) 0.0 Abs Immat Gran (auto) 0.04 H Absolute Neuts (auto) 9.0 H Absolute Nucleated RBC 0.000 Nucleated RBC % (auto) 0.0 Smear Tech's Comments VERIFIED Anion Gap 14 Estim Creat Clear Calc 45.6 Estimated GFR 55 Random Glucose 244 H Lactic Acid 1.4 Calcium 8.7 Total Bilirubin 0.3 AST 22 ALT 11 Alkaline Phosphatase 117 Total Protein 6.9 Albumin 4.0 Assessment and Plan (1) Aspiration pneumonia: Qualifiers: Aspiration pneumonia type: due to regurgitated food Laterality: b ilateral Lung location: unspecified part of lung Qualified Code(s): J69.0 - Pneumonitis due to inhalation of food and vomit Status: Acute Plan This has a 89-year-old female with pertinent history of insulin-dependent diabetes mellitus with neuropathy, hypertension, CKD stage 3, gastroesophageal reflux disease, urinary incontinence, mixed hyperlipidemia who presents to the emergency department for evaluation of fever. #. Sepsis due to aspiration pneumonia: Resuscitated with IV crystalloids. Lactic acid and blood culture obtained. Initiating IV Unasyn. Will keep patient NPO. Speech eval #. Dysphagia and odynophagia leading to above: GI eval #. Insulin-dependent diabetes mellitus with hyperglycemia: Initiating Accu- Cheks with sliding scale insulin every 6 hours while patient is NPO #. Gastroesophageal reflux disease: IV Protonix #. Hypertension: Resume home antihypertensives once able to take p.o. #. Anemia of chronic kidney disease: Hemoglobin above transfusion threshold Med rec pending DVT prophylaxis: Lovenox DNR/DNI. Discussed with patient and daughters at bedside with the help of exterminator helper termite Admit as inpatient and will require two night minimum hospital stay for IV antibiotics (as above), which is not possible in a lesser acute setting. Quality Stroke Does the patient have a stroke diagnosis?: No VTE Prior VTE?: No VTE Risk Level:: Medical - moderate - high VTE Device Contraindication: Treatment Not Indicated VTE Drug Contraindication: N/A - Med Ordered
[2024-11-09 00:58] LABS: Glucose, Whole Blood 140 mg/dL (60-115)
[2024-11-09 05:32] LABS: MANUAL DIFF FLAG NO
[2024-11-09 05:34] LABS: Hematocrit 23.4 % (37.0-47.0); Hemoglobin 7.4 g/dl (12.0-16.0); Imm Gran Abs Auto 0.07 X10*3/uL (0.00-0.03); Imm Gran Pct Auto 0.5 % (0.0-0.4); Lymphocytes Absolute Auto 1.5 X10*3/uL (1.2-4.9); Mean Corpuscular HGB Conc 31.6 g/dl (31.0-35.0); Mean Corpuscular Hemoglobin 27.7 pg (27.0-33.0); Mean Corpuscular Volume 87.6 fL (80.0-98.0); NRBC Abs Auto 0.000 X10*3/uL (0.0-0.012); NRBC Pct Auto 0.0 /100WBC (0.0-0.2); Platelet Count 158 X10*3/uL (160-400); Red Blood Count 2.67 X10*6/uL (4.20-5.50); White Blood Count 14.7 X10*3/uL (4.8-10.8)
[2024-11-09 05:49] LABS: Anion Gap 11 (12-20); Blood Urea Nitrogen 13 mg/dL (9-16); Calcium 7.7 mg/dL (8.4-10.2); Carbon Dioxide 20 mmol/L (22-29); Chloride 116 mmol/L (96-108); Creatinine Clr Calc Pharmacy 55.3; Estimated Glomerular Filt Rate > 60; Potassium 4.0 mmol/L (3.3-5.1); Sodium 143 mmol/L (135-145)
[2024-11-09 06:51] LABS: Glucose, Whole Blood 132 mg/dL (60-115)
[2024-11-09 07:31] LABS: Glucose, Whole Blood 126 mg/dL (60-115)
--- NOTE | 2024-11-09 09:14 | HO.POSTANES ---
Post Anesthesia Evaluation Post Anesthesia Evaluation Date of Service: 11/09/24 Vital Signs: Vital Signs Temp Pulse Resp BP Pulse Ox O2 Del Method 11/09/24 07:42 99.0 F 93 17 136/36 L 100 Room Air 11/09/24 06:41 99 F 95 18 126/51 L 97 Room Air 11/09/24 01:45 96 17 112/44 L 96 Room Air 11/09/24 01:31 95 16 122/41 L 96 Room Air 11/08/24 21:39 100.9 F H 100 18 127/67 96 Room Air 11/08/24 21:16 101.6 F H 102 H 19 132/52 L 94 Room Air Anesthesia: Monitored Mental Status: Awake Pain Control: Satisfactory Nausea/Vomiting: None Hydration: Adequate Anesthesia-Related Issues: No Anes. Related Issues
--- NOTE | 2024-11-09 09:15 | PC.NURSE ---
pt reproting strong abd pain. she states her stomach is very painful and feels like it is going to explode. abd is soft. she points to center when localizing pain. Dr. Rojo notified and is aware. no new orders at this time
--- NOTE | 2024-11-09 09:43 | PHA.MEDREC ---
Addendum entered by Michelle Mcgrath [facility] 11/09/24 12:27: MED REC REVIEWED BY [facility] Since caregive doesn't know which days of the week the estradiol is used, Saturday and Saturday were entered. Addendum entered by Ahsan Kay 11/09/24 12:21: Pt granddaughter confirmed Toujeo 20 units daily and confirmed it was being filled at [facility] and pt has an over abundance of it at home; I spoke with [facility] and [facility] pharmacy (found [facility] claims from this year), [facility] and [facility] has no claims for Toujeo for over a year. Original Note: Pharmacy Consult ? Medication Reconciliation Pharmacy has completed the medication reconciliation. Spoke with pt and pt daughter utilizing visiting teacher. Pt and daughter were poor historians, was not sure of pt meds and directed us to call pt granddaughter/YARDER (Melonie). Spoke with Melonie and she was able to confirm the pt medications. She confirmed: the pt Estradiol twice a week; but didnt know the days she takes it on, Tolterodine was stopped in the last few months by pt due to medication not working for pt and Trulicity is taken once a week on Mondays, last taken 11/02.
--- NOTE | 2024-11-09 11:19 | MHC.SL.SWA ---
Speech Pathologist Impression: Moderate pharyngeoesophageal dysphagia suspected d/t symptoms, recc MBSS to visualize swallow mechanism Risk of Aspiration Due to: New onset dysphagia Advanced age Recent aspiration PNA Dysphasia Diet Status: Liquid Consistency and Strategies for Safe Swallow: Liquid Intake Recommendation: Thin Liquid Intake Strategies: Solid Food Consistency: Dietary Recommendations: Clear liquid diet/thins Additional Modifications to Solid Foods: Oral Medication Intake: Crushed with Puree Please contact the pharmacy regarding appropriate crushable or liquid drug formulations that are available whenever modified delivery is recommended. Compensatory Strategies and Precautions to be Taken for Safe Swallow: Supervision While Eating and Drinking for Safe Swallow: Intermittent Supervision Foods to Avoid: Swallowing Recommended Treatments: Recommendation for Speech: Inpatient Speech Therapy Modified Barium Swallow Study - Inpatient Comment: Pt c/o recent history of dysphagia, characterized by sensation of globus and impacted food. Pt seen by GI 11/08 for EGD to remove foreign body. Orofacial exam unremarkable. Pt denied changes to her voice but vocal quality harsh and weak. Volitional swallow and cough WNL. Pt took minimal amounts of PO trials 11/09 d/t ongoing stomach pain. Pt tolerated sips of thins and tsps of jello without overt s/s of aspiration. Education provided to pt on physiological function of swallow mechanism and airway protection. It is recommended pt have MBSS to visualize swallow mechanism in determining most appropriate diet and compensatory strategies to reduce pt risk for aspiration. Pt in agreement. GI continues to follow, REIMBURSEMENT CONSULTANT recommending clear liquid diet at this time d/t nature of dysphagia. Frequency/Duration: Date Range for Service Req: Timeline to reassess: Mold Operator Clinican/Clinical Fellow: No Supervisory Statement: I have reviewed and agree with the student/clinical fellow's documentation: N/A Speech Language Pathologist: Shae Coffey M.S., CCC-REIMBURSEMENT CONSULTANT
--- NOTE | 2024-11-09 11:49 | HO.PM.IMPN ---
Subjective Subjective Date of Service: 11/09/24 Interval History: seen in f/u for aspiration pneumonia Physical Exam Vital Signs: Vital Signs: Last Vital Signs Temp 99.0 F 11/09/24 07:42 Pulse 91 11/09/24 10:52 Resp 12 11/09/24 10:52 BP 136/52 L 11/09/24 10:52 Pulse Ox 95 11/09/24 10:52 O2 Del Method Room Air 11/09/24 10:52 BMI result Body Mass Index 28.8 Const: Other: Elderly female lying in bed in no distress Neck supple, no JVD Regular rate and rhythm, S1-S2 heard Bilateral crackles present without wheezing Abdomen soft nontender, no guarding, no rigidity Patient is awake, alert and oriented x3 ; no focal motor deficit Psych: Normal mood No pedal edema Objective Data Active Medications Acetaminophen (Acetaminophen 325 Mg Tablet) 650 mg PO Q6H PRN PRN Reason: Pain, Mild 1-3,fever,headache Calcium Carbonate (Calcium Carbonate 750 Mg Tab.Chew) 750 mg PO Q4H PRN PRN Reason: Heartburn Dextrose (Dextrose 50 % 25 Gm/50 Ml Syringe) 25 gm IVPUSH Q15M PRN; Protocol PRN Reason: per Hypoglycemia Standing Ord. Enoxaparin Sodium (Enoxaparin Sodium 40 Mg/0.4 Ml Syringe) 40 mg SUBCUT Q24H [facility] Last Admin: 11/09/24 01:25 Dose: 40 mg Documented By: AMBER Glucose (Glucose Gel 15 Gm Gel..Gram.) 15 gm PO Q15M PRN; Protocol PRN Reason: per Hypoglycemia Standing Ord. Ampicillin Sodium/Sulbactam (Sodium 3 gm/ Sodium Chloride) 100 mls @ 200 mls/hr IV Q6H [facility] Last Infusion: 11/09/24 08:26 Dose: Infused Documented By: MARYCARMEN Insulin Human Lispro (Insulin Lispro 100 Unit/Ml 3 Ml Vial) 0 unit SUBCUT Q6H [facility]; Protocol Last Admin: 11/09/24 06:47 Dose: Not Given Documented By: AMBER Non-Admin Reason: No Insulin Coverage Magnesium Hydroxide (Milk Of Magnesia 30 Ml Oral.Susp) 30 ml PO DAILY PRN PRN Reason: Constipation Melatonin (Melatonin 3 Mg Tablet) 6 mg PO BEDTIME PRN PRN Reason: Insomnia Ondansetron HCl (Ondansetron Hcl 4 Mg/2 Ml Vial) 4 mg IVPUSH Q8H PRN PRN Reason: Nausea and Vomiting Pantoprazole Sodium (Pantoprazole Sodium 40 Mg/10 Ml Vial) 40 mg IVPUSH DAILY@0630 [facility] Last Admin: 11/09/24 06:47 Dose: 40 mg Documented By: AMBER Sodium Chloride (0.9 % Sodium Chloride Flush 3 Ml Syringe) 3 ml IVFLUSH QSHIFT [facility] Last Admin: 11/09/24 08:26 Dose: Not Given Documented By: MARYCARMEN Non-Admin Reason: IV Running Labs 11/09/24 05:11 11/09/24 05:11 Labs: Laboratory Results - last 24 hr 11/08/24 11/09/24 11/09/24 20:25 00:52 05:11 MCV 87.7 87.6 MCH 26.9 L 27.7 MCHC 30.6 L 31.6 RDW 13.8 13.8 Plt Count 204 158 L MPV 10.7 10.9 Immature Gran % (Auto) 0.4 0.5 H Neut % (Auto) 91.0 H 83.8 H Lymph % (Auto) 4.7 L 9.9 L [place] % (Auto) 3.5 4.9 Eos % (Auto) 0.1 0.7 Baso % (Auto) 0.3 0.2 Lymph # (Auto) 0.5 L 1.5 [place] # (Auto) 0.4 0.7 Eos # (Auto) 0.0 0.1 Baso # (Auto) 0.0 0.0 Abs Immat Gran (auto) 0.04 H 0.07 H Absolute Neuts (auto) 9.0 H 12.3 H Absolute Nucleated RBC 0.000 0.000 Nucleated RBC % (auto) 0.0 0.0 Smear Tech's Comments VERIFIED Anion Gap 14 11 L Estim Creat Clear Calc 45.6 55.3 Estimated GFR 55 > 60 POC Glucose 140 H Random Glucose 244 H 150 H Lactic Acid 1.4 Calcium 8.7 7.7 L D Total Bilirubin 0.3 AST 22 ALT 11 Alkaline Phosphatase 117 Total Protein 6.9 Albumin 4.0 11/09/24 11/09/24 06:46 07:19 MCV MCH MCHC RDW Plt Count MPV Immature Gran % (Auto) Neut % (Auto) Lymph % (Auto) [place] % (Auto) Eos % (Auto) Baso % (Auto) Lymph # (Auto) [place] # (Auto) Eos # (Auto) Baso # (Auto) Abs Immat Gran (auto) Absolute Neuts (auto) Absolute Nucleated RBC Nucleated RBC % (auto) Smear Tech's Comments Anion Gap Estim Creat Clear Calc Estimated GFR POC Glucose 132 H 126 H Random Glucose Lactic Acid Calcium Total Bilirubin AST ALT Alkaline Phosphatase Total Protein Albumin Assessment and Plan (1) Aspiration pneumonia: Status: Acute Plan This has a 89-year-old female with pertinent history of insulin-dependent diabetes mellitus with neuropathy, hypertension, CKD stage 3, gastroesophageal reflux disease, urinary incontinence, mixed hyperlipidemia who presents to the emergency department for evaluation of fever. Sepsis due to aspiration pneumonia: Resuscitated with IV crystalloids. Lactic acid and blood culture obtained. Initiating IV Unasyn. W Clear liquid diet by DIETETIC ASSISTANT, to have MBS Dysphagia and odynophagia leading to above: GI eval Insulin-dependent diabetes mellitus with hyperglycemi hold lantus, SSLI Gastroesophageal reflux disease: IV Protonix Hypertension: Resume home antihypertensives once able to take p.o. Anemia of chronic kidney disease: Hemoglobin above transfusion threshold DVT prophylaxis: Lovenox DNR/DNI. Discussed with patient and daughters at bedside with the help of chain hoist operator Quality Stroke Does the patient have a stroke diagnosis?: No VTE Prior VTE?: No VTE Risk Level:: Medical - moderate - high VTE Device Contraindication: Treatment Not Indicated VTE Drug Contraindication: N/A - Med Ordered
[2024-11-09 12:18] LABS: Glucose, Whole Blood 113 mg/dL (60-115)
[2024-11-09] MEDS: Aspirin Enteric Coated 81 MG TABLET.DR PO (12:35)
[2024-11-09] MEDS: Mirabegron 50 MG TAB.ER.24H PO (13:12)
--- NOTE | 2024-11-09 14:07 | MHC.CM.PN ---
PT LIVES WITH SON HAS A AUTISM TEACHER AND RN VISITS EVERY 3 MONTHS PT HAS OWN RIDE HOME
[2024-11-09] MEDS: 0.9 % Sodium Chloride Flush 3 ML SYRINGE IVFLUSH (15:52)
[2024-11-09 16:26] LABS: Glucose, Whole Blood 131 mg/dL (60-115)
--- NOTE | 2024-11-09 17:41 | PM.EVENT ---
Event Note Date of Service: 11/09/24 Event Note: GI Consult-Full note dictated-History from patient, EMR, and multiple family members at the bedside Imp: 89 yo female s/p EGD yesterday morning for removal of an obstructing esophageal food bolus who is now admitted with presumed aspiration pneumonia/pneumonitis. Presently tolerating liquids and denies N/V, odynophagia, or abdominal pain. She reports that she would like to advance her diet. She has been afebrile today but was febrile last evening of >102. Imaging studies are negative for any sign of esophageal perforation. There is no neck or chest wall crepitus. Rec: Advance to full liquids. If she tolerates that I would then recommend advancing to a soft diet. Continue an oral PPI. I would hold off on a modified Barium swallow as the result may not change the course of things. I suspect the aspiration was a result of the esophageal obstruction with difficulty with the managing of secretions. D/W patient and her family in detail. They are comfortable with this plan. Thanks Time Spent With Patient Time: Total time managing care of this patient today ____ minutes.
[2024-11-09 20:02] LABS: Glucose, Whole Blood 135 mg/dL (60-115)
[2024-11-10] MEDS: 0.9 % Sodium Chloride Flush 3 ML SYRINGE IVFLUSH (00:40)
[2024-11-10 00:51] LABS: Glucose, Whole Blood 116 mg/dL (60-115)
--- NOTE | 2024-11-10 03:40 | CONS_ITS ---
DATE OF SERVICE: 11/09/2024 REASON FOR CONSULTATION: History of esophageal obstruction and aspiration. ADDENDUM: PAST MEDICAL HISTORY: Notable for bladder suspension, cholecystectomy, and cataracts. Medical problems include insulin-dependent diabetes mellitus, hyperlipidemia, and hypertension. There is no reported FL, stroke, or lung disease. She has a neuropathy. Irritable bowel syndrome. Esophageal obstruction yesterday as described above, which was relieved endoscopically. SOCIAL HISTORY: She lives with her family. She does not smoke nor use any significant amounts of alcohol. FAMILY HISTORY: Noncontributory. REVIEW OF SYSTEMS: CONSTITUTIONAL: She has been feeling fairly well prior to the episode of esophageal obstruction yesterday. CARDIAC: No chest pain. PULMONARY: No coughing or hemoptysis. GI: As above. PHYSICAL EXAMINATION: GENERAL: The patient appears comfortable. HEENT: Anicteric sclerae. NECK: Supple without lymphadenopathy. CHEST: Clear. CARDIAC: S1, S2. ABDOMEN: Soft, nondistended, nontender without mass. EXTREMITIES: Without edema. There is no crepitus in the neck or chest wall area. LABORATORY DATA: CT scans as above. MD WARREN Whittington/KAMALAL / [id number] HISTORY OF PRESENT ILLNESS: History has been obtained from the patient, the medical record, and the family who are at the bedside. The patient is an 89-year-old female, well known to me from a meeting yesterday, in which she came to the ER with an esophageal food obstruction. At that time, she underwent an upper endoscopy late morning yesterday with monitored anesthesia care. The food was pushed into the stomach and she seemed to have tolerated the procedure well. She did not require intubation and the procedure was quite short in duration. Prior to the episode of esophageal obstruction yesterday, she was reportedly eating comfortably and without any significant dysphagia nor heartburn. After the procedure yesterday, she did go home. She basically just had liquids all night such as soup and beverages. She did have some crackers in the soup. However, overnight, she developed a fever, which prompted her to return to the ER. Her fever seemed to be as high as 102. Her imaging studies of the chest with CT scan describes some pulmonary nodules, but no definitive focal infiltrate. There is no lymphadenopathy. Some of the nodules appeared suspicious for possible metastatic disease. She also had a CT scan of the abdomen and pelvis, which was negative for any acute process. The CT scan of the chest was specifically negative for any type of esophageal perforation. Since admission here, she has been feeling better. She appears to have become afebrile. She has been tolerating clear liquids. However, she would like to try some more substantial food. She was seen by Speech and Swallowing Evaluation team as well. He recommended a possible modified barium swallow to further assess her swallowing and to inspect for any sign of aspiration. PRESENT MEDICATIONS: Include acetaminophen, Unasyn 3 g IV every 6 hours, 81 mg aspirin, atorvastatin, Tums, carvedilol, Lovenox, losartan, meclizine, melatonin, milk of magnesia, Myrbetriq, omeprazole, and Zofran. PAST MEDICAL HISTORY: Esophageal obstruction yesterday in relation to food, which was relieved endoscopically by pushing it into the stomach. However, the obstruction episode did last for at least 12 hours, in which she was unable to swallow any secretions. Prior to the episode yesterday, she did have an upper endoscopy in 2022, which did not reveal any significant findings. There was no evidence of any esophagitis or stricture at that time. Surgeries have included bladder suspension, cholecystectomy, and cataracts. Medical problems include insulin-dependent diabetes mellitus, hyperlipidemia, and hypertension. She does have some underlying irritable bowel syndrome. She does have neuropathy. There is no report of FL, stroke, or lung disease. SOCIAL HISTORY: She lives with family. She does not smoke nor use any significant amounts of alcohol. FAMILY HISTORY: Noncontributory. REVIEW OF SYSTEMS: CONSTITUTIONAL: She has been feeling somewhat weak at home with the associated fever. CARDIAC: No chest pain. PULMONARY: No coughing or hemoptysis. GI: As above. PHYSICAL EXAMINATION: GENERAL: The patient is a pleasant, alert female. She is handling her secretions normally. HEENT: Anicteric sclerae and moist mucous membranes. NECK: Supple without lymphadenopathy or crepitus. CHEST: Clear. There is no chest wall crepitus. CARDIAC: Normal S1, S2. ABDOMEN: Soft, nondistended, nontender without mass. EXTREMITIES: Had edema. LABORATORY DATA: CT scan of the chest and abdomen as above. White blood cell count 14.7, hemoglobin 7.4, platelets 158,000. Normal electrolytes. BUN 13, creatinine 0.8. LFTs normal. CT scan of the chest and abdomen did not show any GI pathology such as esophageal perforation. Other findings are as noted above with multiple bilateral pulmonary nodules, raising suspicion of metastatic disease. Again, there was no evidence of any definitive infiltrate. IMPRESSION: Overall, the patient appears well and seems to be tolerating her liquid diet at the present time. I suspect her episode of aspiration was related to the esophageal obstruction and difficulty with her secretions. It does not sound like she has underlying chronic aspiration. At this point, I would recommend slowly advance her diet. I do not think a modified barium swallow was presently needed as the episode of aspiration again seems to be consistent with that of her recent esophageal obstruction and difficulty with secretions. I do not think a modified barium swallow would, she had much light onto that otherwise. I would advance her to a full-liquid diet overnight and then advance to a soft diet after that. I will continue oral PPI. If the situation changes where she is having a lot of trouble swallowing and/or having active symptoms of aspiration, then we could always recommend the modified barium swallow at that time. However, if things remain stable, then we could probably hold off that. If she begins to have trouble swallowing once her diet is advanced, we can also further evaluate that with a barium swallow. However at this point, if things remain stable and she is tolerating her diet without difficulty, then she would not need any further evaluation on my part. This has all been discussed with the patient and her family in detail. They all seem to be comfortable with this plan. Thank you for the consultation. MD WARREN Whittington/KERRIE / [id number] [place]
[2024-11-10 03:55] VITALS: BP 151/67; PULSE 82; RESP 18; TEMP 36.4; O2SAT 93
[2024-11-10] MEDS: guaiFEN/Codeine SF 200/20/10ML 10 ML LIQUID 5 ML PO ×2 (03:59→10:30)
[2024-11-10 06:50] LABS: Glucose, Whole Blood 113 mg/dL (60-115)
[2024-11-10 07:48] VITALS: BP 170/70; PULSE 81; RESP 18; TEMP 36.4; O2SAT 97
[2024-11-10 09:20] VITALS: BP 170/70; PULSE 81
[2024-11-10] MEDS: Aspirin Enteric Coated 81 MG TABLET.DR PO (09:20)
[2024-11-10] MEDS: Insulin Glargine,Hum.rec.anlog 100 UNIT/ML 10 ML VIAL 16 UNIT SUBCUT (09:20)
[2024-11-10] MEDS: Mirabegron 50 MG TAB.ER.24H PO (09:20)
--- NOTE | 2024-11-10 09:48 | PM.DS ---
DS: Providers Provider Date of Service: 11/10/24 Date of admission: 11/08/24 23:18 Date of discharge: 11/10/24 Primary care physician: Rico Deras MD Consults: 11/09/24 00:03 Consult to Gastroenterology Routine Consulting Provider: Derik Bob Reason for consultation: dysphagia, odynophagia DS: Diagnosis Discharge Diagnosis (1) Aspiration pneumonia: Status: Acute DS: Summary Hospital Course Hospital Course: Chief Complaint: fever This has a 89-year-old female with pertinent history of insulin-dependent diabetes mellitus with neuropathy, hypertension, CKD stage 3, gastroesophageal reflux disease, urinary incontinence, mixed hyperlipidemia who presents to the emergency department for evaluation of fever. Patient was seen in the ER yesterday for sensation of food being stuck in her throat and underwent EGD with removal of foreign body on 11/08 by gastroenterology. Patient states she started having fever with chills on the day of presentation. Has ongoing difficulty with swallowing both solids and liquids and intermittently has pain with swallowing. Patient states this has been going on for a while and she has lost about 50 lb over unknown time. No dyspnea, abdominal pain. She denies chest pain, palpitations, changes in urinary or bowel habits. History obtained with the help of software technical lead.In the emergency department, patient was found to be septic and imaging concerning for multifocal pneumonia. Hospital course: She was admitted due to Sepsis due to aspiration pneumonia and treated with Unasyn, she is no longer febrile, no hypoxia. She was seen by GI and restarted on liquid with goal to advance to regular diet. MBS is not indicated at this time. TEAR DOWN MATCHER has been following and recommends regular texture diet and thin liquids, pills crushed in puree. Chew carefully and eat with a slow pace.. She will be discharge to complete course of antibiotics with Augmentin Insulin-dependent diabetes mellitus with hyperglycemi resume home meds Gastroesophageal reflux disease: IV Protonix Hypertension: Resume home antihypertensives once able to take p.o. Anemia of chronic kidney disease: Hemoglobin above transfusion threshold Final diagnoses: Sepsis d/t aspiration pneumonia dysphagia Time Attestation Discharge Coordination Time (in mins): 45 Quality: Safe Use of Opioids Does Pt have an Active Cancer Diagnosis on the Problem List?: No Quality: Stroke Does the patient have a stroke diagnosis?: No Physical Exam Vital Signs: Vital Signs: Last Vital Signs Temp 97.5 F 11/10/24 07:48 Pulse 81 11/10/24 09:20 Resp 18 11/10/24 07:48 BP 170/70 H 11/10/24 09:20 Pulse Ox 97 11/10/24 07:48 O2 Del Method Room Air 11/10/24 07:48 BMI result Body Mass Index 28.8 DS: Data Data Completed and Pending Labs on day of discharge: Laboratory Results - last 24 hr 11/09/24 11/09/24 11/09/24 12:14 16:20 19:52 POC Glucose 113 131 H 135 H 11/10/24 11/10/24 00:47 06:46 POC Glucose 116 H 113 Preliminary micro results at discharge 11/08/24 20:25 Blood Culture - Preliminary Blood - Venous No growth after 24 hours. 11/08/24 20:25 Blood Culture - Preliminary Blood - Venous No growth after 24 hours. Discharge Plan Discharge Anticipated Discharge Date/Time: 11/10/24 09:49 Patient Disposition: Home, Self-Care Discharge Diagnosis: Aspiration pneumonia, dysphagia Referrals: Rico Deras MD [Primary Care Provider, Internal Medicine] - 1 Week Discharge Medications: New amoxicillin-pot clavulanate 875-125 mg tablet 1 tab PO BID Qty: 14 0RF Continued (DME) bedside commode Kit See Rx Instructions .Route Qty: 1 0RF Rx Instructions: As directed (DME) blood-glucose meter [OneTouch Ultra2 Meter] Misc See Rx Instructions .Route Qty: 1 0RF Rx Instructions: test 3 times daily (DME) lancets [OneTouch UltraSoft 2 Lancet] 30 gauge misc See Rx Instructions .Route Qty: 100 12RF Rx Instructions: test 3 times per day losartan 50 mg tablet 50 mg PO DAILY Qty: 90 4RF (DME) Raised toilet seat with arms See Rx Instructions .Route .MEDSUPPLY Qty: 1 0RF Rx Instructions: As directed gabapentin 400 mg capsule 400 mg PO BID Qty: 180 4RF (DME) OneTouch Ultra Test Strip See Rx Instructions .Route Qty: 100 11RF Rx Instructions: test 3 times per day (DME) body wipes See Rx Instructions .Route .MEDSUPPLY Qty: 1 3RF Rx Instructions: As directed (DME) diaper,brief,adult,disposable Misc See Rx Instructions .Route Qty: 100 0RF Rx Instructions: As directed size mediun (DME) Disposable bed pads See Rx Instructions .Route .MEDSUPPLY Qty: 3 3RF Rx Instructions: As directed (DME) Adult pull ups medium See Rx Instructions .Route .MEDSUPPLY Qty: 240 11RF Rx Instructions: As directed carvedilol 6.25 mg tablet 6.25 mg PO BID Qty: 180 3RF Rx Instructions: must administer with a meal/food (DME) Disposable tiesha-pads See Rx Instructions .Route .MEDSUPPLY Qty: 240 11RF Rx Instructions: As directed aspirin [Adult Aspirin Regimen] 81 mg tablet,delayed release (DR/EC) 81 mg PO DAILY Qty: 90 3RF atorvastatin 20 mg tablet 20 mg PO BEDTIME Qty: 90 2RF tramadol 50 mg tablet 50 mg PO BID PRN (Reason: pain) Qty: 60 0RF meclizine [Motion Sickness Relief(mecliz)] 25 mg tablet 25 mg PO DAILY PRN (Reason: motion sickness) Qty: 14 0RF epinephrine [EpiPen 2-Mariano] 0.3 mg/0.3 mL auto-injector 0.3 mg IM Q10M PRN (Reason: anaphylaxis) Qty: 1 0RF Rx Instructions: for 2 doses dicyclomine 10 mg capsule 10 mg PO BID PRN (Reason: abdominal pain) Qty: 10 0RF estradiol 0.01 % (0.1 mg/gram) cream 1 appl vaginal 2XW omeprazole 20 mg capsule,delayed release(DR/EC) 20 mg PO DAILY@0630 Trulicity 0.75 mg/0.5 mL pen injector 0.75 mg subcut MO insulin glargine U-300 conc [Toujeo SoloStar U-300 Insulin] 300 unit/mL (1.5 mL) insulin pen 20 unit subcut DAILY Myrbetriq 50 mg tablet extended release 24 hr 50 mg PO DAILY (DME) blood pressure monitor [Blood Pressure Kit] Kit See Rx Instructions .ROUTE .MEDSUPPLY Qty: 1 0RF Rx Instructions: As directed Discharge Orders: Discharge Order (Routine); Ordered 11/10/24 Ordered By: Maximiliano Rojo Diet: Advance to usual diet Activity on Discharge: As tolerated Stand Alone Forms: Patient Portal Discharge page Print Language: Cape Verdean Care Plan Goals: recovery from aspiration pneumonia Health Concerns: aspiration pneumonia dysphagia fever Plan of Treatment: take Augmentin as recommend recommended and follow up with your Doctor in a week Food type: regular texture diet and thin liquids, pills crushed in puree. Chew carefully and eat with a slow pace. Assessment: see above
--- NOTE | 2024-11-10 10:45 | MHC.CM.PN ---
Patient medically cleared for dc home w/ family and resumption of CARD BOXER services. Family is at bedside to transport. RN aware.
[2024-11-10 11:46] VITALS: BP 145/69
[2024-11-10 11:47] LABS: Glucose, Whole Blood 181 mg/dL (60-115)
[2024-11-10] MEDS: Milk of Magnesia 30 ML ORAL.SUSP PO (12:13)
--- NOTE | 2024-11-10 13:46 | MHC.SL.SWA ---
Speech Pathologist Impression: Esophageal Dysphagia Dysphasia Diet Status: Upgrade to REGULAR/THIN Liquid Consistency and Strategies for Safe Swallow: Liquid Intake Recommendation: Thin Liquid Intake Strategies: Small Sips Solid Food Consistency: Dietary Recommendations: Regular Additional Modifications to Solid Foods: Discussed case w/ Dr. Doty. No overt difficulties observed at bedside with PO trials. Patient managed regular textures well, efficient oral preparation and chewing, timely swallow, good clearance, and no overt s/s of aspiration. Per Dr. Doty, patient can advance to REGULAR texture solids and THIN liquids, pills CRUSHED in PUREE. Patient is advised to cut up her food into small pieces, chew well, alternate solids/liquids, and eat with slow pacing. EMR indicates patient has been medically cleared for dc home w/ family and resumption of WIND OPERATIONS SUPERVISOR services. Oral Medication Intake: Crushed with Puree Please contact the pharmacy regarding appropriate crushable or liquid drug formulations that are available whenever modified delivery is recommended. Compensatory Strategies and Precautions to be Taken for Safe Swallow: Sitting Upright (90 deg) Small Bites and Sips Alternate Liquids/Solids Rate of Ingestion Change Supervision While Eating and Drinking for Safe Swallow: Intermittent Supervision Swallowing Recommended Treatments: Compens. Strategy Educat. Recommendation for Speech: Inpatient Speech Therapy Tobacco Educator Clinican/Clinical Fellow: No Supervisory Statement: I have reviewed and agree with the student/clinical fellow's documentation: N/A Speech Language Pathologist: Celia Garcia M.A., CCC-ISO COORDINATOR
== END 2024-11-10 15:05 | disposition home or self-care (01) | DRG 871 ==
LOC: HO.ED 23:24 → HO.EDOVER 23:34 → HO.S3 11-09 10:56
PROVIDERS: Physician Assistant; Admitting Provider Student in an Organized Health Care Education/Training Program; Emergency Provider Emergency Medicine Emergency Medical Services; PCP Internal Medicine; Visit Provider Internal Medicine
DX: A41.9 Sepsis, unspecified organism (principal); J69.0 Pneumonitis due to inhalation of food and vomit; I12.9 Hypertensive chronic kidney disease with stage 1 through stage 4 chronic kidney disease, or unspecified chronic kidney disease; N18.30 Chronic kidney disease, stage 3 unspecified; E11.40 Type 2 diabetes mellitus with diabetic neuropathy, unspecified; Z66 Do not resuscitate; E78.2 Mixed hyperlipidemia; K21.9 Gastro-esophageal reflux disease without esophagitis; E11.65 Type 2 diabetes mellitus with hyperglycemia; D63.1 Anemia in chronic kidney disease; R13.10 Dysphagia, unspecified; Z87.891 Personal history of nicotine dependence; Z79.4 Long term (current) use of insulin; Z79.82 Long term (current) use of aspirin; Z79.85 Long-term (current) use of injectable non-insulin antidiabetic drugs; Z79.899 Other long term (current) drug therapy
CPT/HCPCS: 36415; 71250; 74176; 80048; 80053; 82947; 83605; 85025; 87040; 92526; 92610; 99285; J0131; J0295; J0696; J1271; J1650; J2470

== ENCOUNTER → 2024-11-08 20:19 | Outpatient (BNV) | payer OTHER, SELFPAY | PROVIDERS: Visit Provider Radiology Diagnostic Radiology | DX: R50.9 Fever, unspecified (principal); R91.1 Solitary pulmonary nodule | CPT/HCPCS: 71250; 74176 ==

== ENCOUNTER → 2024-11-08 23:18 | Outpatient (BNV) | payer OTHER, SELFPAY | PROVIDERS: Admitting Provider Student in an Organized Health Care Education/Training Program; Emergency Provider Emergency Medicine Emergency Medical Services; Visit Provider Student in an Organized Health Care Education/Training Program | DX: J69.0 Pneumonitis due to inhalation of food and vomit (principal) | CPT/HCPCS: 99223; 99499 ==

== ENCOUNTER 2024-11-22 13:03 | Inpatient (IN) | payer OTHER, SELFPAY ==
[2024-11-22] VITALS (9 sets, daily range): BP systolic 146–179; BP diastolic 50–80; PULSE 83–92; RESP 16–22; TEMP 36.7–36.9; O2SAT 94–98; BMI 27.7
--- NOTE | 2024-11-22 | ECG_ITS ---
Test Reason : AFIB Blood Pressure : */* mmHG Vent. Rate : 78 BPM Atrial Rate : 78 BPM P-R Int : 156 ms QRS Dur : 148 ms QT Int : 460 ms P-R-T Axes : 56 -30 104 degrees QTcB Int : 524 ms Normal sinus rhythm Left axis deviation Left bundle branch block Abnormal ECG When compared with ECG of 22-Nov-2024 16:45, No significant change was found Referred By: Samantha Morales Electronically Signed By: JORGE LIAO
--- NOTE | ~2024-11-22 | XR_ITS ---
CLINICAL HISTORY: cough Chest Radiographs, 2 views Comparison: Cardiomegaly CT/SR - CT CHEST WO IV CON - 11/08/24 20:50 EDT CR - XR CHEST 1V - 09/12/24 10:48 EDT Findings: No cardiomegaly. Normal mediastinal contours. No pneumothorax. Interstitial prominence with faint bilateral opacity. Small left pleural effusion. Normal upper abdomen. No acute fracture. Impression: Mild pulmonary edema is favored. Multifocal infection is considered less likely. This document has been electronically signed by: Alicia Simmons MD on 11/22/2024 16:17:03
--- NOTE | ~2024-11-22 | CT_ITS ---
CLINICAL HISTORY: ? pneumonia CT chest without contrast Comparison: CR - XR CHEST 2V - 11/22/24 15:[address]/SR - CT CHEST WO IV CON - 11/08/24 20:50 EDT CR - XR CHEST 1V - 09/12/24 10:48 EDT Findings: Mediastinal and hilar lymph nodes measure up to 1.3 cm in short axis, previously 1.0 cm. The heart is enlarged. Decreased attenuation of the blood within the ventricles which may indicate anemia. Mild calcified coronary artery disease. Mild calcification of the aortic valve and mitral annulus. Normal size thoracic aorta with a [id number] amount of calcified atherosclerotic disease. Smooth interlobular septal thickening with a mild amount of bilateral ground-glass opacity, new since the prior study. The previously seen nodules in the left lung have resolved or decreased in size, currently measuring up to 6 mm, previously measuring up to 1.5 cm. There is a mild amount of honeycombing with associated increased subpleural reticulation. No pneumothorax . Small bilateral pleural effusions, new since the prior study. No acute osseous or soft tissue abnormality. Diffuse osseous sclerosis. No acute pathology in the imaged portion of the upper abdomen. Trace calcification of the splenic capsule, likely the sequela prior trauma. Impression: Mild pulmonary edema, new since the prior study. The previously seen nodules in the left lung have resolved or decreased in size, likely indicating an infectious or inflammatory process. Three-month follow up to CT can be performed. This document has been electronically signed by: Alicia Simmons MD on 11/22/2024 18:14:41
--- NOTE | 2024-11-22 14:13 | ED_ITS ---
HPI - URI/Sore Throat General Chief Complaint: Upper Respiratory Symptoms Stated Complaint: PNU FINISHED ANTX, NO IMPROVEMENT Time Seen by Provider: 11/22/24 13:35 Source: patient Mode of arrival: ambulatory Limitations: no limitations History of Present Illness HPI Narrative: 89 years old patient presented to the ED with a chief complaint cough congestion she was admitted on 11/08 discharge it 12 she did diagnosed with the aspiration pneumonitis sent home on Augmentin x7 days. She returned today with a persistent cough, no fever no chills no vomiting MD elicited complaint: cough Pertinent past history: pneumonia Onset (ago): week(s) (1) Consistency: constant Severity: moderate Description of mucous: clear Exacerbating factors: nothing Relieving factors: nothing Associated symptoms: denies other symptoms Related Data Home Medications ?Medication ?Instructions ?Recorded ?Confirmed mirabegron 50 mg tablet,extended 50 mg PO DAILY 11/26/24 release 24 hr (Myrbetriq) dulaglutide 0.75 mg/0.5 mL 0.75 mg subcut MO 11/09/24 11/26/24 subcutaneous pen injector (Trulicity) omeprazole 20 mg capsule,delayed 20 mg PO DAILY@0630 0 11/09/24 11/26/24 release ibuprofen 400 mg tablet 400 mg PO Q6H PRN Pain 11/2311/26/24 lidocaine 4 % topical patch 1 patch topical DAILY PRN Pain 11/23/24 11/26/24 Previous Rx's ?Medication ?Instructions ?Recorded epinephrine 0.3 mg/0.3 mL 0.3 mg (0.3 mL) IM Q10M PRN 03/26/20 injection, auto-injector (EpiPen anaphylaxis #1 ea 2-Mariano) commode (bedside commode) #1 ea 06/12/21 blood-glucose meter (OneTouch #1 ea 12/31/22 Ultra2 Meter) lancets 30 gauge (OneTouch #100 ea 12/31/22 UltraSoft 2 Lancet) losartan 50 mg tablet 50 mg PO DAILY #90 tabs 11/30 05/25 Raised toilet seat with arms #1 ea 01/01/24 gabapentin 400 mg capsule 400 mg PO BID #180 caps 11/22 blood sugar diagnostic (OneTouch #100 ea 01/14/24 Ultra Test strips) Disposable bed pads #3 ea 06/11/24 body wipes #1 ea 06/11/24 diaper,brief,adult,disposable #100 ea 06/11/24 Adult pull ups #240 ea 06/17/24 carvedilol 6.25 mg tablet 6.25 mg PO BID #180 tabs 12/24 Disposable tiesha-pads #240 ea 07/17/24 dicyclomine 10 mg capsule 10 mg PO BID PRN abdominal p ain 09/12/24 #10 caps aspirin 81 mg tablet,delayed 81 mg PO DAILY #90 tabs 0 10/12/24 release (Adult Aspirin Regimen) tramadol 50 mg tablet 50 mg PO BID PRN pain #60 ta bs 11/02/24 blood pressure monitor (Blood #1 ea 11/06/24 Pressure Kit) insulin glargine U-300 conc 300 20 unit (0.0667 mL) [place] bcut DAILY 11/13/24 unit/mL (1.5 mL) subcutaneous pen #4.5 mL (Toujeo SoloStar U-300 Insulin) atorvastatin 20 mg tablet 20 mg PO BEDTIME #90 tabs doxycycline monohydrate 100 mg 100 mg PO Q12H #10 caps 11/24/24 capsule guaifenesin 600 mg tablet, 600 mg PO BID PRN Cough #10 tabs 11/24/24 extended release 12 hr (Mucinex) prednisone 20 mg tablet 40 mg (2 x 20 mg) PO DAILY # 10 tabs 11/24/24 meclizine 25 mg tablet (Motion 25 mg PO DAILY PRN blanca on sickness 11/26/24 Sickness Relief (meclizine)) #14 tabs Allergies Allergy/AdvReac Type Severity Reaction Status Date / Time Iodinated Contrast Media (IV Allergy Unknown UNKNOWN Verified 11/22/24 13:15 CONTRAST) Review of Systems 2 Constitutional: Constitutional: Reports no additional constitutional complaints Eyes: Eyes: Reports no additional eye complaints Respiratory: Respiratory: Reports no additional respiratory complaints [facility] Past Medical History Attestation statement: The following information was validated with the patient. Medical History Prolapsed hemorrhoids Diabetic nephropathy with proteinuria Hyperlipidemia HTN (hypertension) IBS (irritable bowel syndrome) Prolapsed internal hemorrhoids Chronic kidney disease, stage III (moderate) Obesity (BMI 30-39.9) Mixed hyperlipidemia Hypertensive heart disease Left bundle branch block Bladder prolapse Diabetes mellitus GERD (gastroesophageal reflux disease) Surgical History History of bladder repair surgery History of ERCP History of bilateral cataract extraction History of cholecystectomy History of excision of mass History of colonoscopy History of ankle surgery Family History Family History Father No problems noted. Mother No problems noted. 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 ENGINEER and visiting nurse) Alcohol intake: never Patient Tobacco Use Status: Former Tobacco user e-Cigarette/Vaping Use: Never Used Second Hand Smoke Exposure: No Advance Directives Date on File: 04/19/23 service: No Current occupational status: disabled Cognitive needs: Yes (cane/walker) Hearing needs: No Vision needs: Yes (glasses) Physical Exam 2 Exam: Exam: She has not toxic she is asking to go home Vital Signs: Vital Signs: Last Vital Signs Temp 97.8 F 11/24/24 11:06 Pulse 85 11/24/24 11:06 Resp 18 11/24/24 11:06 BP 155/65 H 11/24/24 11:06 Pulse Ox 98 11/24/24 11:06 O2 Del Method Room Air 11/24/24 11:06 BMI result Body Mass Index 27.7 She is afebrile breathing at 20 minutes with a sat of 94% on room air Const: General: cooperative Nutritional Appearance: well nourished O rientation/consciousness: patient oriented x3 Limitations: no limitations HEENT: Head: Yes normal to inspection General nose exam: Normal external nose present Face and sinus: Yes normal facial exam Neck: Neck: Yes normal visual inspection Chest: Chest palpation & inspection: normal inspection of the chest Resp: Effort & Inspection: normal respiratory effort Auscultation: rhonchi Cardio: Jugular venous distension: no JVD Rate: regular rate Rhythm: r egular rhythm GI: Inspection: Yes normal to inspection Palpation (GI): Soft to palpation, not firm and nontender Skin: General skin exam: no rashes or lesions noted Lesions: no lesions Rashes: no rashes Wounds: no wounds Neuro: General: patient oriented x3 Extrem: General: Yes normal to inspection and Yes full ROM Course Reevaluation(s) Reevaluation #1: case was signed out to Dr Cordell Limon w/u pending Time: 16:51 Reevaluation #2: [id number]:Cordell Olson MD: I took sign-out from Dr. Dacosta at this time. The patient is pending some additional testing including in addition of troponin BNP, CT chest without contrast. The patient has history of known coronary disease previously declined invasive left heart catheterization came in with cough and phlegm purportedly diagnosed with pneumonia and received antibiotics recently. The working diagnosis at the time of sign-out was multifocal pneumonia versus decompensated heart failure or new onset heart failure. I was able to review previous January 2024 echo which showed moderately reduced LV function that indicates the patient has HFrEF probably chronically but maybe decompensated today. I will order Lasix. The patient is afebrile without leukocytosis I personally feel it is low likelihood the patient has multifocal pneumonia. Medications Administered Discontinued Medications Generic Name Dose Route Start Last Admin Trade Name Freq PRN Reason Stop Dose Admin Acetaminophen 975 mg 11/22/24 20:49 11/22/24 21:53 Acetaminophen 325 Mg Tablet PO 975 mg Q6H PRN Administration Pain, Mild 1-3,fever,headache Albuterol/Ipratropium 3 ml 11/23/24 12:23 11/23/24 12:35 Albuterol/Iprat 2.5/0.5mg 3 Ml Ampul.Neb INHALE 11/23/24 12:24 3 ml ONCE ONE Administration Albuterol/Ipratropium 3 ml 11/23/24 16:46 11/24/24 01:27 Albuterol/Iprat 2.5/0.5mg 3 Ml Ampul.Neb INHALE 3 ml RQ4H WHILE AWAKE PRN Administration Shortness of Breath Aspirin 81 mg 11/24/24 09:00 11/24/24 10:24 Aspirin Enteric Coated 81 Mg Tablet.Dr [place] 81 mg DAILY RAMIN Administration Carvedilol 6.25 mg 11/22/24 23:00 11/24/24 08:34 Carvedilol 3.125 Mg Tablet PO 6.25 mg BID RAMIN Administration Protocol Albuterol Sulfate 2.5 mg/ 0 mg 11/22/24 14:36 11/22/24 14:41 Albuterol/Ipratropium 3 ml INHALE 11/22/24 14:37 1 dose ONCE ONE Administration Doxycycline Monohydrate 100 mg 11/23/24 08:15 11/24/24 08:34 Doxycycline Monohydrate 100 Mg Capsule PO 100 mg Q12H RAMIN Administration Furosemide 40 mg 11/22/24 17:24 11/22/24 18:24 Furosemide 40 Mg/4 Ml Vial IVPUSH 11/22/24 17:25 40 mg ONCE ONE Administration Protocol Gabapentin 400 mg 11/24/24 09:00 11/24/24 10:24 Gabapentin 400 Mg Capsule PO 400 mg BID RAMIN Administration Guaifenesin 600 mg 11/22/24 20:54 11/24/24 08:34 Guaifenesin [place] 600 Mg Tab.Er.12h PO 600 mg BID PRN Administration Cough Heparin Sodium (Porcine) 5,000 unit 11/22/24 21:00 11/24/24 08:34 Heparin Sodium,Porcine 5,000 Unit/Ml Vial SUBCUT 5,000 unit Q12H RAMIN Administration Insulin Human Lispro 0 unit 11/22/24 21:00 11/24/24 11:57 Insulin Lispro 100 Unit/Ml 3 Ml Vial SUBCUT 4 unit [facility] Administration Protocol Losartan Potassium 50 mg 11/24/24 09:00 11/24/24 10:23 Losartan Potassium 50 Mg Tablet PO 50 mg DAILY RAMIN Administration Protocol Melatonin 6 mg 11/22/24 20:49 11/23/24 20:29 Melatonin 3 Mg Tablet PO 6 mg BEDTIME PRN Administration Insomnia Mirabegron 50 mg 11/24/24 09:00 11/24/24 10:24 Mirabegron 50 Mg Tab.Er.24h PO 50 mg DAILY RAMIN Administration Prednisone 40 mg 11/23/24 09:00 11/24/24 08:34 Prednisone 20 Mg Tablet PO 40 mg DAILY RAMIN Administration Sodium Chloride 3 ml 11/23/24 00:00 11/24/24 08:35 0.9 % Sodium Chloride Flush 3 Ml Syringe IVFLUSH 3 ml QSHIFT ARMIN Administration Medical Decision Making Medical Decision Making MDM Narrative: Patient is here complaining of cough we will obtain a chest x-ray we will do a CBC and chemistry Differential Diagnosis Differential Diagnoses: The differential diagnosis associated with the presentation includes Recurrent pneumonia/URI/viral syndrome Admission/Observation Consideration of admission/observation: Escalation of care including admission/observation considered Lab Data 11/24/24 06:44 11/24/24 06:44 Labs: Lab Results 11/22/24 11/22/24 Range/Units 14:13 18:35 WBC 4.8 (4.8-10.8) X10*3/uL RBC 2.78 L (4.20-5.50) X10*6/uL Hgb 7.6 L (12.0-16.0) g/dl Hct 24.5 L (37.0-47.0) % MCV 88.1 (80.0-98.0) fL MCH 27.3 (27.0-33.0) pg MCHC 31.0 (31.0-35.0) g/dl RDW 14.0 (11.0-16.0) % Plt Count 271 D (160-400) X10*3/uL MPV 9.4 (9.4-12.3) fL Immature Gran % (Auto) 0.4 (0.0-0.4) % Neut % (Auto) 60.1 (45-73) % Lymph % (Auto) 22.7 (20-40) % [place] % (Auto) 13.3 H (2-11) % Eos % (Auto) 3.3 (0-4) % Baso % (Auto) 0.2 (0-2) % Lymph # (Auto) 1.1 L (1.2-4.9) X10*3/uL [place] # (Auto) 0.6 (0.1-1.2) X10*3/uL Eos # (Auto) 0.2 (0.0-0.4) X10*3/uL Baso # (Auto) 0.0 (0.0-0.2) X10*3/uL Abs Immat Gran (auto) 0.02 (0.00-0.03) X10*3/uL Absolute Neuts (auto) 2.9 (2.0-8.3) x10*3/uL Absolute Nucleated RBC 0.000 (0.0-0.012) X10*3/uL Nucleated RBC % (auto) 0.0 (0.0-0.2) /100WBC Sodium 142 (135-145) mmol/L Potassium 4.7 (3.3-5.1) mmol/L Chloride 106 (96-108) mmol/L Carbon Dioxide 26 (22-29) mmol/L Anion Gap 15 (12-20) BUN 17 H (9-16) mg/dL Creatinine 1.02 (0.5-1.4) mg/dL Estim Creat Clear Calc 36.6 Estimated GFR 51 Random Glucose 111 (60-115) mg/dL Calcium 8.5 D (8.4-10.2) mg/dL Total Bilirubin 0.3 (0.0-1.0) mg/dL AST 24 (5-31) U/L ALT 7 (0-31) U/L Alkaline Phosphatase 113 (39-117) U/L Troponin I High Sens 186.9 H* D 206.0 H* (<3.5-17.0) ng/L B-Natriuretic Peptide 579 H (<100) pg/mL Total Protein 6.7 (6.5-8.0) g/dL Albumin 3.9 (3.5-5.0) g/dL TSH 0.70 (0.32-4.0) uIU/mL Discharge Plan Discharge Clinical Impression: Shortness of breath Cough Qualifiers: Cough type: acute Qualified Code(s): R05.1 - Acute cough Anemia Qualifiers: Anemia type: unspecified type Qualified Code(s): D64.9 - Anemia, unspecified Patient Disposition: Admitted As Inpatient Interventions: Admission Worksheet (ED) Last Done: 11/23/24 03:42 Discharge Date/Time: 11/23/24 05:00
[2024-11-22 14:19] LABS: MANUAL DIFF FLAG NO
[2024-11-22 14:20] LABS: Hematocrit 24.5 % (37.0-47.0); Hemoglobin 7.6 g/dl (12.0-16.0); Imm Gran Abs Auto 0.02 X10*3/uL (0.00-0.03); Imm Gran Pct Auto 0.4 % (0.0-0.4); Lymphocytes Absolute Auto 1.1 X10*3/uL (1.2-4.9); Mean Corpuscular HGB Conc 31.0 g/dl (31.0-35.0); Mean Corpuscular Hemoglobin 27.3 pg (27.0-33.0); Mean Corpuscular Volume 88.1 fL (80.0-98.0); NRBC Abs Auto 0.000 X10*3/uL (0.0-0.012); NRBC Pct Auto 0.0 /100WBC (0.0-0.2); Platelet Count 271 X10*3/uL (160-400); Red Blood Count 2.78 X10*6/uL (4.20-5.50); White Blood Count 4.8 X10*3/uL (4.8-10.8)
[2024-11-22 14:34] LABS: Alanine Aminotransferase 7 U/L (0-31); Albumin Level 3.9 g/dL (3.5-5.0); Alkaline Phosphatase 113 U/L (39-117); Anion Gap 15 (12-20); Aspartate Amino Transferase 24 U/L (5-31); Blood Urea Nitrogen 17 mg/dL (9-16); Calcium 8.5 mg/dL (8.4-10.2); Carbon Dioxide 26 mmol/L (22-29); Chloride 106 mmol/L (96-108); Creatinine Clr Calc Pharmacy 36.6; Estimated Glomerular Filt Rate 51; Potassium 4.7 mmol/L (3.3-5.1); Sodium 142 mmol/L (135-145); Total Protein 6.7 g/dL (6.5-8.0)
[2024-11-22] MEDS: Albuterol Sulfate 2.5 MG, Albuterol/Iprat 2.5/0.5MG 3 ML 3 ML INHALE (14:41)
--- NOTE | 2024-11-22 16:27 | ECG_ITS ---
Test Reason : SOB Blood Pressure : */* mmHG Vent. Rate : 88 BPM Atrial Rate : 88 BPM P-R Int : 170 ms QRS Dur : 142 ms QT Int : 414 ms P-R-T Axes : 54 -8 96 degrees QTcB Int : 500 ms Normal sinus rhythm Left bundle branch block Abnormal ECG When compared with ECG of 08-Nov-2024 01:16, No significant change was found Referred By: Cornelius Dacosta Electronically Signed By: JORGE LIAO
[2024-11-22 16:55] LABS: B Type Natriuretic Peptide 579 pg/mL (<100)
[2024-11-22 16:56] LABS: Troponin-I High Sensitivity 186.9 ng/L (<3.5-17.0)
[2024-11-22] MEDS: Furosemide 40 MG/4 ML VIAL IVPUSH (18:24)
[2024-11-22 19:05] LABS: Troponin-I High Sensitivity 206.0 ng/L (<3.5-17.0)
--- NOTE | 2024-11-22 20:54 | P.HPHOSP_ITS ---
History of Present Illness Date of Service: 11/22/24 Attending physician on admission: John Enamorado Chief Complaint: cough, phlegm Patient is an 89-year-old Albanian-speaking female with a past medical history significant for insulin-dependent diabetes with neuropathy, hypertension CKD 3, GERD, urinary incontinence, mixed hyperlipidemia, chronic anemia and recent admission for aspiration pneumonia discharged on 11/10/2024, who presented to the ED due to cough, congestion and increased phlegm. She denies any shortness of breath or chest pain. She did complete her Augmentin for aspiration pneumonia as prescribed. She denies any fever or sick contacts. She does report increased urinary frequency as well as dysuria but is unclear whether this began after arriving to the ED and taking Lasix. She is seen with multiple family members who do make the history difficult to obtain, a aerial photograph interpreter was used for this interaction. Review of Systems 2 Constitutional: Constitutional: Denies body ache(s), Denies fatigue, Denies fever(s) and Denies headache(s) Eyes: Eyes: Denies change in vision ENT: Denies headache(s), Reports post nasal drip and Denies sore throat Cardiovascular: Cardiovascular: Denies chest pain, Denies rapid heart rate, Denies leg edema, Denies lightheadedness and Denies dyspnea Respiratory: Respiratory: Reports chest congestion, Reports cough, Denies dyspnea and Denies wheezing Gastrointestinal: Gastrointestinal: Denies abdominal pain, Denies diarrhea, Denies nausea and Denies vomiting Genitourinary: Genitourinary: Reports dysuria Musculoskeletal: Musculoskeletal: Denies myalgias Integumentary/Breasts: Skin/Breast: Denies rash Neurologic: Denies confusion and Denies headache(s) Psychiatric: Psychiatric: Denies confusion Endocrine: Endocrine: Denies fatigue Hematologic/Lymphatic: Hematologic/Lymphatic: Denies easy bleeding and Denies easy bruising Allergic/Immunologic: Allergic/Immunologic: Denies wheezing [facility] Medical History Prolapsed hemorrhoids Diabetic nephropathy with proteinuria Hyperlipidemia HTN (hypertension) IBS (irritable bowel syndrome) Prolapsed internal hemorrhoids Chronic kidney disease, stage III (moderate) Obesity (BMI 30-39.9) Mixed hyperlipidemia Hypertensive heart disease Left bundle branch block Bladder prolapse Diabetes mellitus GERD (gastroesophageal reflux disease) Family History Father No problems noted. Mother No problems noted. 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 If so, by whom?: No Do you feel safe in your current relationship?: No Current Relationship Is there a partner from a previous relationship who is making you feel unsafe now?: No Are you made to feel afraid or neglected: No [facility] Practices: Declined Advance Directives: Yes Advance Directives on File: Yes Advance Directives Date on File: 04/19/23 Do you have a plan to hurt others: No Plan Recently lost weight without trying: No Eating poorly because of decreased appetite: Yes Nutrition Risks: On aspiration precautions Patient : No : No Poor oral hygiene: Yes (dentures upper and lower) service: No Current occupational status: disabled Cognitive needs: Yes (cane/walker) Hearing needs: No Vision needs: Yes (glasses) Narrative: Previous smoker, no alcohol or drug use Meds Allergies Allergy/AdvReac Type Severity Reaction Status Date / Time Iodinated Contrast Media (IV Allergy Unknown UNKNOWN Verified 11/22/24 13:15 CONTRAST) Active Medications: Current Medications Acetaminophen (Acetaminophen 325 Mg Tablet) 975 mg PO Q6H PRN PRN Reason: Pain, Mild 1-3,fever,headache Calcium Carbonate (Calcium Carbonate 750 Mg Tab.Chew) 750 mg PO Q4H PRN PRN Reason: Heartburn Dextrose (Dextrose 50 % 25 Gm/50 Ml Syringe) 25 gm IVPUSH Q15M PRN; Protocol PRN Reason: per Hypoglycemia Standing Ord. Glucose (Glucose Gel 15 Gm Gel..Gram.) 15 gm PO Q15M PRN; Protocol PRN Reason: per Hypoglycemia Standing Ord. Heparin Sodium (Porcine) (Heparin Sodium,Porcine 5,000 Unit/Ml Vial) 5,000 unit SUBCUT Q12H RAMIN Insulin Human Lispro (Insulin Lispro 100 Unit/Ml 3 Ml Vial) 0 unit SUBCUT QIDACHS RAMIN; Protocol Magnesium Hydroxide (Milk Of Magnesia 30 Ml Oral.Susp) 30 ml PO DAILY PRN PRN Reason: Constipation Melatonin (Melatonin 3 Mg Tablet) 6 mg PO BEDTIME PRN PRN Reason: Insomnia Oxycodone HCl (Oxycodone Hcl Immed Release 5 Mg Tablet) 5 mg PO Q6H PRN PRN Reason: Pain, Severe (Pain Scale 7-10) Sodium Chloride (0.9 % Sodium Chloride Flush 3 Ml Syringe) 3 ml IVFLUSH QSHIFT RAMIN Tramadol HCl (Tramadol Hcl 50 Mg Tablet) 50 mg PO Q6H PRN PRN Reason: Pain, Moderate(Pain Scale 4-6) Home Medications ?Medication ?Instructions ?Recorded ?Confirmed ?Last Taken ?Type mirabegron 50 mg tablet,extended 50 mg PO DAILY 11/09/24 11/07/24 History release 24 hr (Myrbetriq) dulaglutide 0.75 mg/0.5 mL 0.75 mg subcut MO 11/09/24 11/09/24 11/02/24 History subcutaneous pen injector (Trulicity) estradiol 0.01% (0.1 mg/gram) 1 appl vaginal 2XW 11/0911/09/24 Unknown History vaginal cream omeprazole 20 mg capsule,delayed 20 mg PO DAILY@0630 0 11/09/24 11/09/24 11/07/24 History release Physical Exam 2 Vital Signs and Narrative: Vital Signs: Last Vital Signs Temp 98.4 F 11/22/24 17:16 Pulse 89 11/22/24 17:16 Resp 22 H 11/22/24 17:16 BP 164/73 H 11/22/24 18:24 Pulse Ox 96 11/22/24 17:16 O2 Del Method Room Air 11/22/24 17:16 BMI result Body Mass Index 27.7 General: AOx3, no acute distress, seen with daughters bedside as well as aerial photograph interpreter Resp: Congested throughout, no crackles or wheezing CVS: Borderline tachycardia, irregular rhythm GI: +BS, NT, no distention Skin: Warm, dry Neuro: Cranial nerves II-XII grossly intact bilaterally. Motor grossly intact bilaterally Extremities: No pitting edema Psych: Appropriate affect Const: General: No confusion Orientation/consciousness: No confusion Neuro: General: No confusion Results Labs 11/22/24 14:13 11/22/24 14:13 Labs: Laboratory Results - last 24 hr 11/22/24 14:13 MCV 88.1 MCH 27.3 MCHC 31.0 RDW 14.0 Plt Count 271 D MPV 9.4 Immature Gran % (Auto) 0.4 Neut % (Auto) 60.1 Lymph % (Auto) 22.7 White % (Auto) 13.3 H Eos % (Auto) 3.3 Baso % (Auto) 0.2 Lymph # (Auto) 1.1 L White # (Auto) 0.6 Eos # (Auto) 0.2 Baso # (Auto) 0.0 Abs Immat Gran (auto) 0.02 Absolute Neuts (auto) 2.9 Absolute Nucleated RBC 0.000 Nucleated RBC % (auto) 0.0 Anion Gap 15 Estim Creat Clear Calc 36.6 Estimated GFR 51 Random Glucose 111 Calcium 8.5 D Total Bilirubin 0.3 AST 24 ALT 7 Alkaline Phosphatase 113 B-Natriuretic Peptide 579 H Total Protein 6.7 Albumin 3.9 Assessment and Plan (1) Acute on chronic diastolic CHF (congestive heart failure): Status: Acute (2) Chronic anemia: Status: Acute (3) Chronic kidney disease, stage III (moderate): Status: Acute (4) Prolonged QT interval: Status: Acute Plan Patient is an 89-year-old Albanian-speaking female with a past medical history significant for insulin-dependent diabetes with neuropathy, hypertension, CKD 3, GERD, urinary incontinence, mixed hyperlipidemia, chronic anemia and recent admission for aspiration pneumonia discharged on 11/10/2024, who presented to the ED due to cough, congestion and increased phlegm. Acute on chronic CHF exacerbation - no leukocytosis, afebrile, vitals stable, no infection identified - chest x-ray with mild pulmonary edema, multifocal infection is considered less likely - chest CT with mild pulmonary edema, new since the prior study. Previously seen nodules in the left lung have resolved or decreased in size, likely indicating an infectious or inflammatory process. Three-month follow-up CT could be performed - EKG with NSR, left bundle branch block (chronic), QTC prolonged at 500, no changes - troponin 186.9, to 0 6 on repeat, 3rd troponin pending, no chest pain - BNP elevated at 579 - patient given 40 mg IV Lasix in ED, assess need for repeat diuretics in a.m. - echo 02/22 with moderate early reduced LV ejection fraction of 35-40% with impaired relaxation filling pattern. Mildly dilated left atrium. Early mild aortic stenosis. Normal RV systolic pressure. - repeat echo - repeat EKG and troponin - monitor on telemetry - follow CBC and BMP Chronic anemia, stable - hemoglobin 7.6, improved from previous recent hospitalization - no need for blood transfusion at this time - monitor CBC CKD 3 - creatinine at baseline - avoid nephrotoxins when possible - monitor creatinine Dysuria - unclear if this started after starting Lasix - check UA - no leukocytosis on CBC Prolonged QT - QTc 524, then 500 on repeat EKG - avoid QT prolonging agents including fluconazole (?unsure if taking) Insulin-dependent diabetes - sliding scale insulin - patient and consistent with Toujeo at home, we will hold for now - takes Trulicity on Mondays, we will hold while hospitalized - diabetic diet Hypertension - continue home meds when appropriate GERD - continue home meds HLD - continue statin Med rec pending DNR/DNI VTE prophylaxis: Heparin Patient with acute on chronic CHF exacerbation, requiring admission for at least 2 midnights stay for diuresis, further evaluation and monitoring. Quality Stroke Does the patient have a stroke diagnosis?: No VTE Prior VTE?: No VTE Risk Level:: Medical - moderate - high VTE Device Contraindication: Treatment Not Indicated VTE Drug Contraindication: N/A - Med Ordered
[2024-11-22] MEDS: guaiFENesin LA 600 MG TAB.ER.12H PO (21:48)
[2024-11-22 22:01] LABS: Glucose, Whole Blood 147 mg/dL (60-115)
[2024-11-22 22:11] LABS: Troponin-I High Sensitivity 227.9 ng/L (<3.5-17.0)
[2024-11-23] VITALS (8 sets, daily range): BP systolic 141–172; BP diastolic 54–78; PULSE 78–90; RESP 12–20; TEMP 36.2–37; O2SAT 95–100; BMI 26.4
[2024-11-23 06:22] LABS: Appearance Urine Clear; Glucose Urine UA Negative (Negative); PH 6.5 (5.0-9.0); Specific Gravity - Urine 1.010 (1.005-1.025); UMIC TRIGGER UACC YES
--- NOTE | 2024-11-23 07:00 | CA_ITS ---
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 The visually estimated ejection fraction is between 25-30%. - No obvious valvular pathology seen on this study. Findings Procedure Information Contrast agent, definity, is being given per protocol without apparent complications. Left Ventricle Normal left ventricular cavity size. There is moderately increased left ventricular wall thickness. The left ventricular systolic function is severely decreased. The visually estimated ejection fraction is between 25 30%. There is paradoxical septal motion consistent with a left bundle branch block. Evidence suggests grade I (mild) diastolic dysfunction. Atria The left atrium is mildly dilated. The right atrium is normal in size. Aortic Valve There is a normal trileaflet aortic valve. There is mild calcification of the aortic valve. There is no aortic valve stenosis. There is no aortic valve regurgitation. Mitral Valve There is mild mitral annular calcification. There is mild mitral valve regurgitation. There is no mitral valve stenosis. Pulmonic Valve The pulmonic valve is likely normal. Tricuspid Valve There is mild tricuspid valve regurgitation. There is no evidence of pulmonary hypertension. Great Vessels The asc aorta is normal in size. Venous The inferior vena cava is normal in size and collapses greater than 50% with inspiration. Pericardium/Pleural There is no evidence of pericardial effusion. Prior Study Comparison Changes noted compared to prior study dated: 02/19/2024. slight decrease in LVEF. Recommendations, Care & Conclusions No obvious valvular pathology seen on this study. Measurements 2D Linear Measurements IVSd: 1.24 0.6-0.9/0.6-1.0 cm LVIDd: 4.34 3.9-5.3/4.2-5.9 cm LVIDd Index: 2.48 2.4-3.2/2.2-3.1 cm/m2 LVIDs: 3.78 2.0-3.6 cm LVPWd: 1.56 0.7-1.1 cm LA Diam: 3.90 2.7-3.8/3.0-4.0 cm LAIDs Index: 2.23 1.5-2.3 cm/m2 LV Mass: 293.54 67-162/88-224 g LV Mass Index: 167.74 43-95/49-115 g/m2 LVOT Diam: 2.00 3.0+(-)1.3 cm 2D Systolic Function EF 4C: 28.90 >55% EF 2C: 41.10 >55% EF BiP: 34.80 >55% Mitral Valve MV VTI: 0.34 MV Pk Quinn: 1.82 MV Mn Quinn: 1.19 MV Pk Grad: 13.00 MV Mn Grad: 6.00 MV Pk E: 1.32 MV PK A: 1.66 MV Decel Time: 206.00 E/A: 0.80 E'Lateral: 5.00 E'Medial: 3.48 E/E' Med: 37.90 E/E' Lat: 26.40 PHT: 60.00 MVA PHT: 3.67 MVA Continuity: 1.93 Decel Young: 6.40 Aortic Valve AoV Pk Quinn: 1.70 AoV Mn Quinn: 1.17 AoV VTI: 0.39 AoV Pk Grad: 12.00 Aov Mn Grad: 6.00 FRANCESCA Cont.VTI: 1.69 LVOT LVOT Pk Quinn: 1.05 LVOT Mn Quinn: 0.63 LVOT VTI: 0.21 LVOT Pk Grad: 4.00 LVOT Mn Grad: 2.00 LVOT Diam: 2.00 LVOT Area: 3.14 Diastolic Function MV Pk E: 1.32 MV Pk A: 1.66 E/A: 0.80 E'Medial: 3.48 E/E' Med: 37.90 E' Laterial: 5.00 E/E' Lat: 26.40 Right Ventricle TAPSE (mm): 25.80 TVS' Quinn: 12.20 Tricuspid Valve TR Pk Quinn: 2.64 TR Pk Grad: 28.00 RA Press: 3.00 RVSP: 31.00 Great Vessels Aorta Sinus of Valsalva: 3.20 2.0-3.5 cm Ao Asc: 3.40 2.1-3.4 cm Pulmonary Veins Pulm Vein S/D 1.70 Pulmonary Valve PV Pk Quinn: 1.52 Peak PV Grad: 9.00 Updated in Other Vendor System with Status of Final Bird Gil MD electronically signed on 11/23/2024 12:35:17 PM with status of Final
[2024-11-23 07:37] LABS: Glucose, Whole Blood 114 mg/dL (60-115)
[2024-11-23] MEDS: 0.9 % Sodium Chloride Flush 3 ML SYRINGE IVFLUSH ×3 (08:48→20:21)
[2024-11-23 09:12] LABS: Hematocrit 27.4 % (37.0-47.0); Hemoglobin 8.3 g/dl (12.0-16.0); Mean Corpuscular HGB Conc 30.3 g/dl (31.0-35.0); Mean Corpuscular Hemoglobin 26.8 pg (27.0-33.0); Mean Corpuscular Volume 88.4 fL (80.0-98.0); NRBC Abs Auto 0.000 X10*3/uL (0.0-0.012); NRBC Pct Auto 0.0 /100WBC (0.0-0.2); Platelet Count 336 X10*3/uL (160-400); Red Blood Count 3.10 X10*6/uL (4.20-5.50); White Blood Count 4.1 X10*3/uL (4.8-10.8)
[2024-11-23 09:25] LABS: Anion Gap 14 (12-20); Blood Urea Nitrogen 14 mg/dL (9-16); Calcium 8.9 mg/dL (8.4-10.2); Carbon Dioxide 28 mmol/L (22-29); Chloride 103 mmol/L (96-108); Creatinine Clr Calc Pharmacy 42.0; Estimated Glomerular Filt Rate > 60; Potassium 4.1 mmol/L (3.3-5.1); Sodium 141 mmol/L (135-145)
[2024-11-23] MEDS: guaiFENesin LA 600 MG TAB.ER.12H PO ×2 (12:07→23:16)
[2024-11-23 12:15] LABS: Glucose, Whole Blood 202 mg/dL (60-115)
[2024-11-23] MEDS: Albuterol/Iprat 2.5/0.5MG 3 ML AMPUL.NEB INHALE (12:35)
--- NOTE | 2024-11-23 14:33 | PHA.MEDREC ---
Pharmacy Consult ? Medication Reconciliation Pharmacy has completed the medication reconciliation. Spoke with patient's family at bedside, and granddaughter on the phone to confirm medications. Pt completed recent antibitoics, and is not longer on estradiol vaginal cream. Pt takes Trulicity on Mondays.
--- NOTE | 2024-11-23 14:50 | MHC.CM.PN ---
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 PT VERFIES PCP IS DR. NOVAK AND HCP ON FILE.
[2024-11-23 16:18] LABS: Glucose, Whole Blood 294 mg/dL (60-115)
[2024-11-23 20:53] LABS: Glucose, Whole Blood 286 mg/dL (60-115)
[2024-11-24] VITALS: BP 172/74; PULSE 76; RESP 20; TEMP 36.6; O2SAT 99
[2024-11-24 01:27] VITALS: PULSE 74; RESP 16; O2SAT 97
[2024-11-24] MEDS: Albuterol/Iprat 2.5/0.5MG 3 ML AMPUL.NEB INHALE (01:27)
[2024-11-24 03:46] VITALS: BP 176/72; PULSE 74; RESP 20; TEMP 36.1; O2SAT 97
[2024-11-24 07:08] VITALS: BP 170/64; PULSE 74; RESP 18; TEMP 36.4; O2SAT 97
[2024-11-24 07:24] LABS: Hematocrit 25.2 % (37.0-47.0); Hemoglobin 7.8 g/dl (12.0-16.0); Mean Corpuscular HGB Conc 31.0 g/dl (31.0-35.0); Mean Corpuscular Hemoglobin 26.6 pg (27.0-33.0); Mean Corpuscular Volume 86.0 fL (80.0-98.0); NRBC Abs Auto 0.000 X10*3/uL (0.0-0.012); NRBC Pct Auto 0.0 /100WBC (0.0-0.2); Platelet Count 368 X10*3/uL (160-400); Red Blood Count 2.93 X10*6/uL (4.20-5.50); White Blood Count 4.8 X10*3/uL (4.8-10.8)
[2024-11-24 07:27] LABS: Glucose, Whole Blood 97 mg/dL (60-115)
[2024-11-24 07:33] LABS: Anion Gap 11 (12-20); Blood Urea Nitrogen 17 mg/dL (9-16); Calcium 8.7 mg/dL (8.4-10.2); Carbon Dioxide 28 mmol/L (22-29); Chloride 105 mmol/L (96-108); Creatinine Clr Calc Pharmacy 41.1; Estimated Glomerular Filt Rate 60; Potassium 3.7 mmol/L (3.3-5.1); Sodium 140 mmol/L (135-145)
[2024-11-24] MEDS: guaiFENesin LA 600 MG TAB.ER.12H PO (08:34)
[2024-11-24] MEDS: 0.9 % Sodium Chloride Flush 3 ML SYRINGE IVFLUSH (08:35)
[2024-11-24] MEDS: Mirabegron 50 MG TAB.ER.24H PO (10:24)
[2024-11-24] MEDS: Aspirin Enteric Coated 81 MG TABLET.DR PO (10:24)
[2024-11-24 11:06] VITALS: BP 155/65; PULSE 85; RESP 18; TEMP 36.6; O2SAT 98
[2024-11-24 11:26] LABS: Glucose, Whole Blood 201 mg/dL (60-115)
--- NOTE | 2024-11-24 11:55 | P.DS_ITS ---
DS: Providers Provider Date of Service: 11/24/24 Date of admission: 11/22/24 19:48 Date of discharge: 11/24/24 Primary care physician: Rico Deras MD DS: Diagnosis Discharge Diagnosis (1) Acute on chronic diastolic CHF (congestive heart failure): Status: Acute (2) Chronic anemia: Status: Acute (3) Chronic kidney disease, stage III (moderate): Status: Acute (4) Prolonged QT interval: Status: Acute DS: Summary Hospital Course Hospital Course: from initial hpi: 89-year-old Hebrew-speaking female with a past medical history significant for insulin-dependent diabetes with neuropathy, hypertension CKD 3, GERD, urinary incontinence, mixed hyperlipidemia, chronic anemia and recent admission for aspiration pneumonia discharged on 11/10/2024, who presented to the ED due to cough, congestion and increased phlegm. She denies any shortness of breath or chest pain. She did complete her Augmentin for aspiration pneumonia as prescribed. She denies any fever or sick contacts. She does report increased urinary frequency as well as dysuria but is unclear whether this began after arriving to the ED and taking Lasix. She is seen with multiple family members who do make the history difficult to obtain, a newspaper vendor was used for this interaction. hospital course: Patient was admitted for acute on chronic CHF with recovered ejection fraction. Was given IV Lasix and symptoms improved. Echocardiogram be held recovered ejection fraction with IVC collapsing with inspiration. Was also treated for acute bronchitis with prednisone and doxycycline and will continue 5 more days on discharge. Patient feels like she is back to baseline and will be discharged home. For diabetes continued on basal bolus insulin. For hypertension continued on carvedilol, losartan. For chronic anemia remained stable. For CKD 3 remained stable. Time Attestation Discharge Coordination Time (in mins): 34 Quality: Safe Use of Opioids Does Pt have an Active Cancer Diagnosis on the Problem List?: No Quality: Stroke Does the patient have a stroke diagnosis?: No Physical Exam Exam: Exam: General: AO X 3, no acute distress Resp: CTA bilateral, no accessory muscles used CVS: S1,S2,RRR GI: soft, non tender, non distended Neuro: motor grossly intact, alert Psych: appropriate affect, appropriate insight Vital Signs: Vital Signs: Last Vital Signs Temp 97.8 F 11/24/24 11:06 Pulse 85 11/24/24 11:06 Resp 18 11/24/24 11:06 BP 155/65 H 11/24/24 11:06 Pulse Ox 98 11/24/24 11:06 O2 Del Method Room Air 11/24/24 11:06 BMI result Body Mass Index 26.4 DS: Data Data Completed and Pending Labs on day of discharge: Laboratory Results - last 24 hr 11/23/24 11/23/24 11/23/24 11:51 16:11 19:42 WBC RBC Hgb Hct MCV MCH MCHC RDW Plt Count MPV Absolute Nucleated RBC Nucleated RBC % (auto) Sodium Potassium Chloride Carbon Dioxide Anion Gap BUN Creatinine Estim Creat Clear Calc Estimated GFR POC Glucose 202 H 294 H 286 H Random Glucose Calcium 11/24/24 11/24/24 11/24/24 06:44 07:04 10:53 WBC 4.8 RBC 2.93 L Hgb 7.8 L Hct 25.2 L MCV 86.0 MCH 26.6 L MCHC 31.0 RDW 13.6 Plt Count 368 MPV 10.1 Absolute Nucleated RBC 0.000 Nucleated RBC % (auto) 0.0 Sodium 140 Potassium 3.7 Chloride 105 Carbon Dioxide 28 Anion Gap 11 L BUN 17 H Creatinine 0.89 Estim Creat Clear Calc 41.1 Estimated GFR 60 POC Glucose 97 201 H Random Glucose 102 Calcium 8.7 Discharge Plan Discharge Anticipated Discharge Date/Time: 11/24/24 11:52 Patient Disposition: Home, Self-Care Discharge Diagnosis: copd Referrals: Rico Deras MD [Primary Care Provider, Internal Medicine] - 1 Week Discharge Medications: New prednisone 20 mg Tablet 40 mg PO DAILY Qty: 10 0RF doxycycline monohydrate 100 mg Capsule 100 mg PO Q12H Qty: 10 0RF guaifenesin [Mucinex] 600 mg Tablet Extended Release 12hr 600 mg PO BID PRN (Reason: Cough) Qty: 10 0RF Continued (DME) bedside commode Kit See Rx Instructions .Route Qty: 1 0RF Rx Instructions: As directed (DME) blood-glucose meter [OneTouch Ultra2 Meter] Misc See Rx Instructions .Route Qty: 1 0RF Rx Instructions: test 3 times daily (DME) lancets [OneTouch UltraSoft 2 Lancet] 30 gauge misc See Rx Instructions .Route Qty: 100 12RF Rx Instructions: test 3 times per day losartan 50 mg tablet 50 mg PO DAILY Qty: 90 4RF (DME) Raised toilet seat with arms See Rx Instructions .Route .MEDSUPPLY Qty: 1 0RF Rx Instructions: As directed gabapentin 400 mg capsule 400 mg PO BID Qty: 180 4RF (DME) OneTouch Ultra Test Strip See Rx Instructions .Route Qty: 100 11RF Rx Instructions: test 3 times per day (DME) body wipes See Rx Instructions .Route .MEDSUPPLY Qty: 1 3RF Rx Instructions: As directed ([facility]) diaper,brief,adult,disposable Misc See Rx Instructions .Route Qty: 100 0RF Rx Instructions: As directed size mediun (DME) Disposable bed pads See Rx Instructions .Route .MEDSUPPLY Qty: 3 3RF Rx Instructions: As directed ([facility]) Adult pull ups medium See Rx Instructions .Route .MEDSUPPLY Qty: 240 11RF Rx Instructions: As directed carvedilol 6.25 mg tablet 6.25 mg PO BID Qty: 180 3RF Rx Instructions: must administer with a meal/food (DME) Disposable tiesha-pads See Rx Instructions .Route .MEDSUPPLY Qty: 240 11RF Rx Instructions: As directed aspirin [Adult Aspirin Regimen] 81 mg tablet,delayed release (DR/EC) 81 mg PO DAILY Qty: 90 3RF tramadol 50 mg tablet 50 mg PO BID PRN (Reason: pain) Qty: 60 0RF meclizine [Motion Sickness Relief(mecliz)] 25 mg tablet 25 mg PO DAILY PRN (Reason: motion sickness) Qty: 14 0RF insulin glargine U-300 conc [Toujeo SoloStar U-300 Insulin] 300 unit/mL (1.5 mL) insulin pen 20 unit subcut DAILY Qty: 4.5 0RF atorvastatin 20 mg tablet 20 mg PO BEDTIME Qty: 90 3RF epinephrine [EpiPen 2-Mariano] 0.3 mg/0.3 mL auto-injector 0.3 mg IM Q10M PRN (Reason: anaphylaxis) Qty: 1 0RF Rx Instructions: for 2 doses dicyclomine 10 mg capsule 10 mg PO BID PRN (Reason: abdominal pain) Qty: 10 0RF omeprazole 20 mg capsule,delayed release(DR/EC) 20 mg PO DAILY@0630 Trulicity 0.75 mg/0.5 mL pen injector 0.75 mg subcut MO lidocaine 4 % Adhesive Patch,Medicated 1 patch TOPICAL DAILY PRN (Reason: Pain) ibuprofen 400 mg Tablet 400 mg PO Q6H PRN (Reason: Pain) Myrbetriq 50 mg tablet extended release 24 hr 50 mg PO DAILY (DME) blood pressure monitor [Blood Pressure Kit] Kit See Rx Instructions .ROUTE .MEDSUPPLY Qty: 1 0RF Rx Instructions: As directed Discharge Orders: Discharge Order (Routine); Ordered 11/24/24 Ordered By: Kaleb Nuno Diet: Advance to usual diet Activity on Discharge: As tolerated Stand Alone Forms: Patient Portal Discharge page Print Language: German Care Plan Goals: recovery Health Concerns: bronchitis Plan of Treatment: 5 dyas prednisone and doxy Assessment: see above
--- NOTE | 2024-11-24 12:04 | MHC.CM.PN ---
Patient has been medically cleared for dc to home today, self care. Last IMM was addressed yesterday.
== END 2024-11-24 13:14 | disposition home or self-care (01) | DRG 291 ==
LOC: HO.ED 16:53 → HO.EDOVER 20:40 → HO.IMC 11-23 03:32
PROVIDERS: Emergency Medicine; Hospitalist; Physician Assistant; Admitting Provider Internal Medicine; Emergency Provider Emergency Medicine; PCP Internal Medicine; Visit Provider Internal Medicine
DX: I13.0 Hypertensive heart and chronic kidney disease with heart failure and stage 1 through stage 4 chronic kidney disease, or unspecified chronic kidney disease (principal); I50.23 Acute on chronic systolic (congestive) heart failure; N18.30 Chronic kidney disease, stage 3 unspecified; D63.1 Anemia in chronic kidney disease; E11.40 Type 2 diabetes mellitus with diabetic neuropathy, unspecified; Z66 Do not resuscitate; E78.2 Mixed hyperlipidemia; J20.9 Acute bronchitis, unspecified; K21.9 Gastro-esophageal reflux disease without esophagitis; E11.22 Type 2 diabetes mellitus with diabetic chronic kidney disease; Z79.4 Long term (current) use of insulin; Z79.82 Long term (current) use of aspirin; Z79.85 Long-term (current) use of injectable non-insulin antidiabetic drugs; Z79.899 Other long term (current) drug therapy
CPT/HCPCS: 36415; 71046; 71250; 80048; 80053; 81001; 82947; 83880; 84443; 84484; 85025; 85027; 93005; 93306; 94640; 99285; J1644; J1938; Q9957

== ENCOUNTER → 2024-11-22 13:52 | Outpatient (BNV) | payer OTHER, SELFPAY | PROVIDERS: Emergency Provider Emergency Medicine; Visit Provider Radiology Diagnostic Radiology | DX: R05.8 Other specified cough (principal) | CPT/HCPCS: 71046; 71250 ==

== ENCOUNTER → 2024-11-22 16:27 | Outpatient (BNV) | payer OTHER, SELFPAY | PROVIDERS: Admitting Provider Internal Medicine; Emergency Provider Emergency Medicine; PCP Internal Medicine; Visit Provider Internal Medicine | DX: I44.7 Left bundle-branch block, unspecified (principal) | CPT/HCPCS: 93010 ==

== ENCOUNTER 2024-11-22 19:48 | Outpatient (BNV) | payer OTHER, SELFPAY | END 2024-11-23 07:00 | PROVIDERS: Admitting Provider Internal Medicine; Emergency Provider Emergency Medicine; Visit Provider Internal Medicine | DX: I51.89 Other ill-defined heart diseases (principal) | CPT/HCPCS: 93306 ==

== ENCOUNTER → 2024-11-22 19:48 | Outpatient (BNV) | payer OTHER, SELFPAY | PROVIDERS: Admitting Provider Internal Medicine; Emergency Provider Emergency Medicine; PCP Internal Medicine; Visit Provider Internal Medicine | DX: I50.33 Acute on chronic diastolic (congestive) heart failure (principal); D64.9 Anemia, unspecified; N18.30 Chronic kidney disease, stage 3 unspecified; R94.31 Abnormal electrocardiogram [ECG] [EKG] | CPT/HCPCS: 99223 ==

== ENCOUNTER 2024-12-11 09:56 | Outpatient (AMB) | payer OTHER, SELFPAY ==
--- NOTE | 2024-12-11 10:01 | A.OFFPC_ITS ---
Vital Signs 12/11/24 10:04 Height 5 ft 4 in Weight 158 lb 1.143 oz BMI 27.1 BP 134/60 Blood Pressure Location Lt brachial Position Sitting Pulse 84 Pulse Source Pulse Oximeter Temp 97.1 F Temp Source Temporal Artery Scan Pulse Oximetry (%) 99 Oxygen Delivery Method Room Air Intake Visit Reasons: TCM 11/24 Pulmonary Edema Intake Note: Patient is here for hospital discharge follow up. Patient was discharged from [facility] on 11/24/24. Front Desk Manager Required: Yes Front Desk Manager Language: Merchandise Flow Associate Name: Melonie (graddaughter) Information Interpreted: non-clinical & clinical (pt decline repairer recreational vehicle service prefer granddaughter to translate) Flow Coordinator: Present Accompanied by: Grand Child Allergies Iodinated Contrast Media (IV CONTRAST) Allergy (Unknown, Verified 12/11/24 10:03) UNKNOWN Tobacco use date assessed: 12/11/24 Fall risk assessment: No Falls in past year Last assessed Fall Risk: 12/11/24 Dental Screening Dental Screen Date: 12/11/24 Did you have a dental visit in the last 12 months?: Yes Did you have a dental problem in the last 6 months where you did not have access to dental care?: No Was dental information given to patient?: Patient has dentist HPI TCM TCM Information Date of Discharge 11/24/24 Discharged From [facility] Interactive Contact Date (Reference documentation from this date) 11/26/24 HPI Comments History of Present Illness Details 89 y/o Female patient who presents to [facility] clinic today for TCM. Past medical history significant for insulin-dependent diabetes with neuropathy, hypertension CKD 3, GERD, urinary incontinence, mixed hyperlipidemia, chronic anemia and recent admission for aspiration pneumonia discharged on 11/10/2024. She was re-admitted to [facility] on 11/22 - 11/24 for an evaluation and treatment of acute on chronic CHF with recovered ejection fraction. She was also treated for acute bronchitis with prednisone and doxycycline. Today she is accompanied by her Grand-daughter who helps with Translation. Pt c/o Dry cough, and Occasional SOB. Denies Fevers, Chills or CP. [facility] Medical History Prolapsed hemorrhoids Diabetic nephropathy with proteinuria Hyperlipidemia HTN (hypertension) IBS (irritable bowel syndrome) Prolapsed internal hemorrhoids Chronic kidney disease, stage III (moderate) Obesity (BMI 30-39.9) Mixed hyperlipidemia Hypertensive heart disease Left bundle branch block Bladder prolapse Diabetes mellitus GERD (gastroesophageal reflux disease) Surgical History History of bladder repair surgery History of ERCP History of bilateral cataract extraction History of cholecystectomy History of excision of mass History of colonoscopy History of ankle surgery Family History Father No problems noted. Mother No problems noted. Family/Other Lung cancer Esophagus cancer Other Mental health disorder Substance use disorder Social History Household Members: Family Housing: House Do you presently have visiting nurse or other home services: Yes ([employer] and visiting nurse) Alcohol intake: never Patient Tobacco Use Status: Former Tobacco user e-Cigarette/Vaping Use: Never Used Second Hand Smoke Exposure: Yes Advance Directives Date on File: 04/19/23 service: No Current occupational status: disabled Cognitive needs: Yes (cane/walker) Hearing needs: No Vision needs: Yes (glasses) Questionnaire PHQ-9 Over the last 2 weeks, how often have you been bothered by any of the following problems? 1. Little interest or pleasure in doing things: not at all 2. Feeling down, depressed, or hopeless: not at all 3. Trouble falling or staying asleep, or sleeping too much: not at all 4. Feeling tired or having little energy: not at all 5. Poor appetite or overeating: not at all 6. Feeling bad about yourself - or that you are a failure or have let yourself or your family down: not at all 7. Trouble concentrating on things, such as reading the newspaper or watching television: not at all 8. Moving or speaking so slowly that other people could have noticed. Or the opposite - being so fidgety or restless that you have been moving around a lot more than usual: not at all 9. Thoughts that you would be better off or of hurting yourself in some way: not at all Total score: 0 Depression Screening Interpretation: Negative Depression Screening Done: Yes Source: Developed by Drs. Vu Harris, Huma B.W. Ronak Roque and colleagues, with an educational yury from [employer]. Thrive Questionnaire Date Thrive assessed: 11/23/24 AUDIT C Alcohol Use Questionnaire (AUDIT-C) 1. How often do you have a drink containing alcohol?: Never Total Score: 0 MENDEL-7 AMB Questionnaire MENDEL-7 Date MENDEL - 7 assessed: 12/11/24 Feeling nervous, anxious, or on edge: 0 = Not at all Not being able to stop or control worryin = Not at all Worrying too much about different things: 0 = Not at all Trouble relaxin = Not at all Being so restless that it is hard to sit still: 0 = Not at all Becoming easily annoyed or irritable: 0 = Not at all Feeling afraid as if something awful might happen: 0 = Not at all Total MENDEL-7 score (0-4 normal; 5-9 mild; 10-14 moderate; 15-21 severe): 0 Source: Developed by Drs. Vu Harris, Ronak Thomas and colleagues, with an educational yury from [employer]. Review of Systems Const All systems reviewed & are unremarkable except as noted in HPI and below Physical exam (Primary Care) Vital Signs: Last Vital Signs Temp 97.1 F 12/11/24 10:04 Pulse 84 12/11/24 10:04 BP 134/60 12/11/24 10:04 Pulse Ox 99 12/11/24 10:04 Oxygen Delivery Method Room Air 12/11/24 10:04 BMI result Body Mass Index 27.1 Tobacco/Smoking Status: Tobacco use Status Tobacco use date assessed 12/11/24 12/11/24 10:12 Patient Tobacco Use Status Former Tobacco user 12/11/24 10:12 e-Cigarette/Vaping Use Never Used 12/11/24 10:12 PHQ-9: PHQ-9 Score PHQ-9: Total score 0 12/11/24 10:31 Depression Screening Interpretation: Negative Thrive Assessment: Date of Thrive Assessment Date Thrive assessed 11/23/24 12/11/24 10:12 Const General: no acute distress Nutritional Appearance: overweight Limitations: language barrier and ambulation with cane Resp Effort & Inspection: normal respiratory effort, no audible wheezes and no cough Auscultation: clear to auscultation bilaterally, no crackles, no rales, no rhonchi and no wheezes Cardio Heart sounds: S1 normal heart sound present and S2 normal heart sound present Neuro General: moves all extremities Gait exam (Neuro): Assisted gait required Gait assisted method: walking stick Psych Speech and movement: Normal speech and movement present Coding Level of Care Code TCM Mod MDM <= 14 Days Diagnoses Acute on chronic diastolic CHF (congestive heart failure) I50.33 Time Spent (min) 20 Assessment & Plan Assessment & Plan (1) Acute on chronic diastolic CHF (congestive heart failure): Code(s): I50.33 - Acute on chronic diastolic (congestive) heart failure Category: Medical Plan: Stable. Managed By Cardiology.
[2024-12-11 10:04] VITALS: BP 134/60; PULSE 84; TEMP 36.2; O2SAT 99; BMI 27.1
--- OUTSIDE RECORDS SUMMARY | 2024-12-11 11:14 | XMS_ITS | Clinical Summary ---
Author Organization [employer] Address [address] [facility] [address] [place] [address] Care Team Providers Care Roller Name Role Phone Unavailable Primary Care Provider [...] - 1-dose 75+ series) 10/10/2010 COVID-19 Vaccine (2024- season) 2024 06/07/2022, 05/23/2021, 07/25/2020, Additional history exists Influenza [...] patient's age to complete this topic Insurance [facility] OPTIONS (HMO D-SNP) [employer] [id number]
== END 2024-12-11 10:42 | disposition home or self-care (01) ==
LOC: HO.HMCH 09:57
PROVIDERS: PCP Internal Medicine; Visit Provider Nurse Practitioner Family
DX: I50.33 Acute on chronic diastolic (congestive) heart failure (principal)

== ENCOUNTER → 2024-12-11 09:56 | Outpatient (BNVA) | payer OTHER, SELFPAY | PROVIDERS: PCP Internal Medicine; Visit Provider Nurse Practitioner Family | DX: I13.0 Hypertensive heart and chronic kidney disease with heart failure and stage 1 through stage 4 chronic kidney disease, or unspecified chronic kidney disease (principal); E11.22 Type 2 diabetes mellitus with diabetic chronic kidney disease; N18.30 Chronic kidney disease, stage 3 unspecified; I50.33 Acute on chronic diastolic (congestive) heart failure; Z79.4 Long term (current) use of insulin | CPT/HCPCS: 96127; 99212 ==

== ENCOUNTER 2024-12-15 17:05 | Inpatient (IN) | payer OTHER, SELFPAY ==
--- NOTE | ~2024-12-15 | CT_ITS ---
CLINICAL HISTORY: abd pain CT abdomen and pelvis without contrast Comparison: CT of the abdomen and pelvis from 11/08/2024 Findings: New small bilateral pleural effusions with underlying atelectasis/consolidation. Mild superimposed edema considered given septal thickening in the [id number]. Lymphangitic spread not excluded by imaging at this time. Gallbladder is surgically absent. No significant change of the solid abdominal organs. Calcifications noting nonspecific of the periphery of the spleen. No hydronephrosis. Nonobstructing nephrolithiasis of the right kidney measures 2 mm (189 series 4). Vascular calcifications are redemonstrated including imaged aorta and its branches. No new or enlarging lymphadenopathy by noncontrast CT. No small bowel obstruction. Severe stool burden present, including in the cecum. Diverticula redemonstrated multifocal including cecum. Imaged appendix is within normal limits (398 of series 4). Wall thickening of the large intestine is nonspecific. Differential considerations include colitis and diverticulitis including proximal sigmoid colon with the adjacent fluid and stranding. Artifacts noted including from positioning of the upper extremities and superficial metal. Uterus is retroverted. No significant change in mixed density of the right adnexa which measures 4.8 x 4.8 x 3.9 cm. Grade 1 anterolisthesis of the L4-L5 with vacuum disc phenomenon. Additional degenerative disc changes are multifocal. Vacuum disc phenomenon Schmorl's nodes noted including imaged thoracic vertebrae. Facet arthropathy is multifocal. 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 Subcutaneous edema noted, including dependently. IMPRESSION: 1. Mild wall thickening of the large intestine is nonspecific including sigmoid colon. Differential considerations include mild colitis and diverticulitis given adjacent fluid. 2. No small bowel obstruction. 3. New small pleural effusions with underlying atelectasis and/or consolidation. Please consider attention on follow-up to ensure resolution. 4. Soft tissue right adnexa of measuring 4.8 cm is nonspecific by noncontrast CT. Please consider nonemergent characterization with ultrasound. This document has been electronically signed by: Ramón Mendoza MD on 12/16/2024 00:05:31
--- NOTE | ~2024-12-15 | US_ITS ---
EXAMINATION: US PELVIS HISTORY: R adnexal mass with vaginal bleeding, anemia COMPARISON: Comparison is made with the prior examination dated 04/20/2023. Correlation is also made with a CT of the abdomen and pelvis without contrast dated 12/15/2024. TECHNIQUE: Transabdominal real-time 2D olea-scale ultrasound was performed. FINDINGS: The uterus is not identified. There is a 3.6 x 4.0 x 4.0 cm mass in the right adnexa which likely corresponds to the mass noted on CT. The left ovary is not identified. US/US pelvic complete IMPRESSION: Limited examination. The uterus and left ovary are not identified. 3.6 x 4.0 x 4.0 cm right adnexal mass corresponding to the mass noted on CT. Electronically signed by: Vu Gonzales MD 12/17/2024 07:37 AM EDT
[2024-12-15 17:29] VITALS: BP 154/69; PULSE 79; RESP 18; TEMP 36.5; O2SAT 97; BMI 28.9
--- NOTE | 2024-12-15 17:32 | ED.DIZZY ---
HPI - Dizziness General Chief Complaint: Dizziness Stated Complaint: Dizziness Time Seen by Provider: 12/15/24 21:00 Source: patient Mode of arrival: ambulatory Limitations: language barrier History of Present Illness ED Provider: Dr. Newsome HPI Narrative: This is a 89-year-old female history of anemia, CHF, hypertension, cardiomyopathy, CKD, diabetes presented hospital today for evaluation of dizziness. Patient stated she is having bilateral ear pain associated with this dizziness. Patient stated that she feel very lightheaded and it is very difficult for her to ambulate. She is also complaining of dark stool. She stated that it is black in color over the past couple of weeks. She is also complaining of light vaginal bleeding as well when she wipes. She denies any chest pain or shortness of breath. She does complain of dizziness and lightheadedness. When she is resting she does not feel any dizziness. However when she stands up and ambulate she does. Not complain of any nausea or vomiting not complaining of any active abdominal pain at this time. Related Data Home Medications ?Medication ?Instructions ?Recorded ?Confirmed mirabegron 50 mg tablet,extended 50 mg PO DAILY 02/14/22 11/26/24 release 24 hr (Myrbetriq) dulaglutide 0.75 mg/0.5 mL 0.75 mg subcut MO 11/09/24 11/26/24 subcutaneous pen injector (Trulicity) omeprazole 20 mg capsule,delayed 20 mg PO DAILY@0630 11/09/24 11/26/24 release Previous Rx's ?Medication ?Instructions ?Recorded epinephrine 0.3 mg/0.3 mL 0.3 mg (0.3 mL) IM Q10M PRN 03/26/20 injection, auto-injector (EpiPen anaphylaxis #1 ea 2-Mariano) commode (bedside commode) #1 ea 06/12/21 blood-glucose meter (OneTouch #1 ea 12/31/22 Ultra2 Meter) lancets 30 gauge (OneTouch #100 ea 12/31/22 UltraSoft 2 Lancet) Raised toilet seat with arms #1 ea 01/01/24 gabapentin 400 mg capsule 400 mg PO BID #180 caps 01/07/24 blood sugar diagnostic (OneTouch #100 ea 01/14/24 Ultra Test strips) Disposable bed pads #3 ea 06/11/24 body wipes #1 ea 06/11/24 diaper,brief,adult,disposable #100 ea 06/11/24 Adult pull ups #240 ea 06/17/24 carvedilol 6.25 mg tablet 6.25 mg PO BID #180 tabs 07/08/24 Disposable tiesha-pads #240 ea 07/17/24 dicyclomine 10 mg capsule 10 mg PO BID PRN abdominal pain 09/12/24 #10 caps aspirin 81 mg tablet,delayed 81 mg PO DAILY #90 tabs 10/12/24 release (Adult Aspirin Regimen) blood pressure monitor (Blood #1 ea 11/06/24 Pressure Kit) insulin glargine U-300 conc 300 20 unit (0.0667 mL) subcut DAILY 11/13/24 unit/mL (1.5 mL) subcutaneous pen #4.5 mL (Toujeo SoloStar U-300 Insulin) atorvastatin 20 mg tablet 20 mg PO BEDTIME #90 tabs 11/17/24 meclizine 25 mg tablet (Motion 25 mg PO DAILY PRN motion sickness 11/26/24 Sickness Relief (meclizine)) #14 tabs losartan 50 mg tablet 50 mg PO DAILY #90 tabs 12/13/24 tramadol 50 mg tablet 50 mg PO BID PRN pain #60 tabs 12/14/24 Allergies Allergy/AdvReac Type Severity Reaction Status Date / Time Iodinated Contrast Media (IV Allergy Unknown UNKNOWN Verified 12/15/24 17:29 CONTRAST) Review of Systems Review of Systems: Pertinent review of systems as mentioned in HPI. All other system otherwise negative. [facility] Past Medical History [facility] Narrative: Medical history as mentioned in HPI Medical History Prolapsed hemorrhoids Diabetic nephropathy with proteinuria Hyperlipidemia HTN (hypertension) IBS (irritable bowel syndrome) Prolapsed internal hemorrhoids Chronic kidney disease, stage III (moderate) Obesity (BMI 30-39.9) Mixed hyperlipidemia Hypertensive heart disease Left bundle branch block Bladder prolapse Diabetes mellitus GERD (gastroesophageal reflux disease) Surgical History History of bladder repair surgery History of ERCP History of bilateral cataract extraction History of cholecystectomy History of excision of mass History of colonoscopy History of ankle surgery Family History Family History Father No problems noted. Mother No problems noted. Family/Other Lung cancer Esophagus cancer Other Mental health disorder Substance use disorder Social History Social History Household Members: Family Housing: House Do you presently have visiting nurse or other home services: Yes ([employer] and visiting nurse) Alcohol intake: never Patient Tobacco Use Status: Former Tobacco user Smoked in Last 30 Days: No e-Cigarette/Vaping Use: Never Used Second Hand Smoke Exposure: Yes Use of substances other than those prescribed or required for medical reasons: No Advance Directives: Yes Advance Directives on File: Yes Advance Directives Date on File: 04/19/23 service: No Current occupational status: disabled Cognitive needs: Yes (cane/walker) Hearing needs: No Vision needs: Yes (glasses) Physical Exam Exam: Exam: General: Does appear chronically ill, pale Head: Normacephalic, atraumatic ENT: oral mucosa moist, neck supple, no tracheal deviation Cardiovascular: regular rate, regular rhythm, no murmurs, rubbing, gallops Respiratory: CTAB, no wheeze, rales, rhonchi Gastrointestinal: Soft, non distended, non tender, non guarding : No obvious signs of dark stool on rectal exam Extremities: No limb pain or swelling, no calf tenderness Neurological: Awake and alert, no facial droop noted Skin: Warm and dry Psychiatric: Appropriate mood and thoughts Vital Signs: Vital Signs: Last Vital Signs Temp 98.5 F 12/16/24 00:06 Pulse 86 12/16/24 00:06 Resp 20 12/16/24 00:06 BP 163/86 H 12/16/24 00:06 Pulse Ox 96 12/15/24 23:40 O2 Del Method Room Air 12/15/24 23:40 BMI result Body Mass Index 28.9 Course Course Course Narrative: This is an RME: Additional HPI, ROS, PE not included below will be deferred to primary provider. RME assessment and note performed by: Angie Lobo PA-C This is a 88-mqin-coe-female, with a hx of insulin-dependent diabetes with neuropathy, hypertension CKD 3, GERD, urinary incontinence, mixed hyperlipidemia, chronic anemia and recent admission for aspiration pneumonia discharged on 11/10/2024 and another admission on 11/22 for CHF, anemia, CKD, and prolonged QT, who presents to the ER with complaints of dizziness and BL ear pain. Reports that the dizziness typically occurs at night, reports that she has had dizziness episodes for many months. Also endorsing vaginal bleeding since yesterday. Also endorsing lower abdominal pain. Reporting black stools, not on AC; has had this for 3 weeks Plan: Labs, EKG, further ER eval needed Medications Administered Discontinued Medications Generic Name Dose Route Start Last Admin Trade Name Elba PRN Reason Stop Dose Admin Pantoprazole Sodium 80 mg 12/15/24 21:49 12/15/24 23:20 Pantoprazole Sodium 40 Mg/10 Ml Vial IVPUSH 12/15/24 21:50 80 mg ONCE ONE Administration Medical Decision Making Medical Decision Making [facility] Narrative: This is a 89-year-old female with a history of CKD, diabetes, hypertension, cardiomyopathy, hyperlipidemia presented hospital today for evaluation of dark stool, dizziness. Concerns for possible GI bleed. Patient did have abdominal lab work. She does have anemia with hemoglobin 7.2. It appears that patient has been having steady decline in hemoglobin since September 2023. Her baseline then was around 10 and 11. She has been steadily declining throughout the ER of 2024. A significant lab work here is elevated troponin at 144. Patient is not have any chest pain at this time. Patient does have elevated troponin in the past around this range. However it has been steadily increasing since 10/2024. This may be demand ischemia secondary to her hemoglobin level. We will plan to repeat a troponin level at this time. Patient's UA did not show any signs of UTI. I did discuss with the patient about blood transfusion given her symptoms of dizziness and low hemoglobin level. I did perform a fecal occult blood test. Which was negative. However during the testing I was not able to obtain much stool sample IV Protonix will be prophylactically given to the patient. Patient consented for blood transfusion. Anticipate admission for the blood transfusion and symptomatic anemia CT of the abdomen and pelvis will be obtained. CT abdomen and pelvis showed incidental finding of pleural effusions, she also has a right adnexal soft tissue mass. Patient stated that this is something that she is following her OBGYN with. They are following this mass and watching the growth however it has not grown in size. Patient also has finding of colitis. Troponin is elevated at 150 chest pain-free. Patient likely has demand ischemia in the setting of her cardiomyopathy. We will plan to admit patient for symptomatic anemia at this time. Stool occult study is negative for blood. Differential Diagnosis Differential Diagnoses: The differential diagnosis associated with the presentation includes Anemia, GI bleed, vaginal bleeding, ovarian mass, dizziness Consult Healthcare Provider Management of the patient was discussed with: Hospitalist Lab Data MDM Lab Attestation statement: I reviewed the patient's lab results. 12/15/24 18:39 12/15/24 18:39 Labs: Lab Results 12/15/24 12/15/24 12/15/24 Range/Units 18:39 20:43 22:01 WBC 4.9 (4.8-10.8) X10*3/uL RBC 2.70 L (4.20-5.50) X10*6/uL Hgb 7.2 L (12.0-16.0) g/dl Hct 23.3 L (37.0-47.0) % MCV 86.3 (80.0-98.0) fL MCH 26.7 L (27.0-33.0) pg MCHC 30.9 L (31.0-35.0) g/dl RDW 14.0 (11.0-16.0) % Plt Count 249 D (160-400) X10*3/uL MPV 9.6 (9.4-12.3) fL Immature Gran % (Auto) 0.2 (0.0-0.4) % Neut % (Auto) 59.1 (45-73) % Lymph % (Auto) 29.8 (20-40) % [place] % (Auto) 7.4 (2-11) % Eos % (Auto) 3.3 (0-4) % Baso % (Auto) 0.2 (0-2) % Lymph # (Auto) 1.5 (1.2-4.9) X10*3/uL [place] # (Auto) 0.4 (0.1-1.2) X10*3/uL Eos # (Auto) 0.2 (0.0-0.4) X10*3/uL Baso # (Auto) 0.0 (0.0-0.2) X10*3/uL Abs Immat Gran (auto) 0.01 (0.00-0.03) X10*3/uL Absolute Neuts (auto) 2.9 (2.0-8.3) x10*3/uL Absolute Nucleated RBC 0.000 (0.0-0.012) X10*3/uL Nucleated RBC % (auto) 0.0 (0.0-0.2) /100WBC Sodium 141 (135-145) mmol/L Potassium 4.5 D (3.3-5.1) mmol/L Chloride 109 H (96-108) mmol/L Carbon Dioxide 26 (22-29) mmol/L Anion Gap 11 L (12-20) BUN 13 (9-16) mg/dL Creatinine 0.90 (0.5-1.4) mg/dL Estim Creat Clear Calc 39.3 Estimated GFR 59 Random Glucose 122 H (60-115) mg/dL Calcium 8.6 (8.4-10.2) mg/dL Magnesium 1.9 (1.6-2.6) mg/dL Total Bilirubin 0.3 (0.0-1.0) mg/dL Direct Bilirubin 0.1 (0.0-0.5) mg/dL AST 25 (5-31) U/L ALT 9 (0-31) U/L Alkaline Phosphatase 116 (39-117) U/L Troponin I High Sens 144.5 H* (<3.5-17.0) ng/L Total Protein 6.2 L (6.5-8.0) g/dL Albumin 3.7 (3.5-5.0) g/dL Lipase 18 (8-78) U/L Urine Color Yellow Urine Appearance Clear Urine pH 5.5 (5.0-9.0) Ur Specific [place] <= 1.005 (1.005-1.025) Urine Protein 100 (2+) H (Neg-Trace) mg/dL Urine Glucose (UA) Negative (Negative) mg/dL Urine Ketones Negative (Negative) mg/dL Urine Blood Negative (Negative) Urine Nitrite Negative (Negative) Ur Leukocyte Esterase Negative (Negative) Urine RBC 0-2 (0-2) /HPF Urine WBC 0-5 (0-5) /HPF Ur Squamous Epith Cells 0-2 (0-2) /HPF Urine Bacteria None Seen (None Seen) Hyaline Casts 0-2 (0-2) /LPF Stool Occult Blood NEGATIVE (NEGATIVE) Blood Type O Positive Antibody Screen NEGATIVE Crossmatch See Detail 12/15/24 Range/Units 23:22 WBC (4.8-10.8) X10*3/uL RBC (4.20-5.50) X10*6/uL Hgb (12.0-16.0) g/dl Hct (37.0-47.0) % MCV (80.0-98.0) fL MCH (27.0-33.0) pg MCHC (31.0-35.0) g/dl RDW (11.0-16.0) % Plt Count (160-400) X10*3/uL MPV (9.4-12.3) fL Immature Gran % (Auto) (0.0-0.4) % Neut % (Auto) (45-73) % Lymph % (Auto) (20-40) % [place] % (Auto) (2-11) % Eos % (Auto) (0-4) % Baso % (Auto) (0-2) % Lymph # (Auto) (1.2-4.9) X10*3/uL [place] # (Auto) (0.1-1.2) X10*3/uL Eos # (Auto) (0.0-0.4) X10*3/uL Baso # (Auto) (0.0-0.2) X10*3/uL Abs Immat Gran (auto) (0.00-0.03) X10*3/uL Absolute Neuts (auto) (2.0-8.3) x10*3/uL Absolute Nucleated RBC (0.0-0.012) X10*3/uL Nucleated RBC % (auto) (0.0-0.2) /100WBC Sodium (135-145) mmol/L Potassium (3.3-5.1) mmol/L Chloride (96-108) mmol/L Carbon Dioxide (22-29) mmol/L Anion Gap (12-20) BUN (9-16) mg/dL Creatinine (0.5-1.4) mg/dL Estim Creat Clear Calc Estimated GFR Random Glucose (60-115) mg/dL Calcium (8.4-10.2) mg/dL Magnesium (1.6-2.6) mg/dL Total Bilirubin (0.0-1.0) mg/dL Direct Bilirubin (0.0-0.5) mg/dL AST (5-31) U/L ALT (0-31) U/L Alkaline Phosphatase (39-117) U/L Troponin I High Sens 150.2 H* (<3.5-17.0) ng/L Total Protein (6.5-8.0) g/dL Albumin (3.5-5.0) g/dL Lipase (8-78) U/L Urine Color Urine Appearance Urine pH (5.0-9.0) Ur Specific [place] (1.005-1.025) Urine Protein (Neg-Trace) mg/dL Urine Glucose (UA) (Negative) mg/dL Urine Ketones (Negative) mg/dL Urine Blood (Negative) Urine Nitrite (Negative) Ur Leukocyte Esterase (Negative) Urine RBC (0-2) /HPF Urine WBC (0-5) /HPF Ur Squamous Epith Cells (0-2) /HPF Urine Bacteria (None Seen) Hyaline Casts (0-2) /LPF Stool Occult Blood (NEGATIVE) Blood Type Antibody Screen Crossmatch Independent Interpretation I performed an independent interpretation of an: CT Scan Radiology Impression Discussion of test interpretation with radiology: I have reviewed the radiologist's reading. Critical Care Time Critical Care Time Critical Care Time: Yes Total Critical Care Time: 40 Attestation: Time is exclusive of separately billable procedures. Time includes: direct patient care, patient reassessment, coordination of patient care, interpretation of data (laboratory data, pulse oximetry, arterial blood gases and chest xrays), review of patient's medical records, medical consultation and documentation of patient care. Procedures excluded from critical care time: central intravenous line placement and electrocardiography. Discharge Plan Discharge Clinical Impression: Symptomatic anemia, Elevated troponin Patient Disposition: Admitted As Inpatient
--- NOTE | 2024-12-15 17:38 | ECG_ITS ---
Test Reason : dizziness Blood Pressure : */* mmHG Vent. Rate : 81 BPM Atrial Rate : 81 BPM P-R Int : 154 ms QRS Dur : 146 ms QT Int : 422 ms P-R-T Axes : 45 -24 120 degrees QTcB Int : 490 ms Normal sinus rhythm Left bundle branch block Abnormal ECG When compared with ECG of 23-Nov-2024 01:33, No significant change was found Referred By: Angie Lobo Electronically Signed By: JORGE LIAO
[2024-12-15 18:46] LABS: Hematocrit 23.3 % (37.0-47.0); Hemoglobin 7.2 g/dl (12.0-16.0); Imm Gran Abs Auto 0.01 X10*3/uL (0.00-0.03); Imm Gran Pct Auto 0.2 % (0.0-0.4); Lymphocytes Absolute Auto 1.5 X10*3/uL (1.2-4.9); MANUAL DIFF FLAG NO; Mean Corpuscular HGB Conc 30.9 g/dl (31.0-35.0); Mean Corpuscular Hemoglobin 26.7 pg (27.0-33.0); Mean Corpuscular Volume 86.3 fL (80.0-98.0); NRBC Abs Auto 0.000 X10*3/uL (0.0-0.012); NRBC Pct Auto 0.0 /100WBC (0.0-0.2); Platelet Count 249 X10*3/uL (160-400); Red Blood Count 2.70 X10*6/uL (4.20-5.50); White Blood Count 4.9 X10*3/uL (4.8-10.8)
[2024-12-15 19:02] LABS: Alanine Aminotransferase 9 U/L (0-31); Albumin Level 3.7 g/dL (3.5-5.0); Alkaline Phosphatase 116 U/L (39-117); Anion Gap 11 (12-20); Aspartate Amino Transferase 25 U/L (5-31); Blood Urea Nitrogen 13 mg/dL (9-16); Calcium 8.6 mg/dL (8.4-10.2); Carbon Dioxide 26 mmol/L (22-29); Chloride 109 mmol/L (96-108); Creatinine Clr Calc Pharmacy 39.3; Estimated Glomerular Filt Rate 59; Lipase 18 U/L (8-78); Magnesium 1.9 mg/dL (1.6-2.6); Potassium 4.5 mmol/L (3.3-5.1); Sodium 141 mmol/L (135-145); Total Protein 6.2 g/dL (6.5-8.0)
[2024-12-15 19:15] LABS: Troponin-I High Sensitivity 144.5 ng/L (<3.5-17.0)
[2024-12-15 20:04] VITALS: BP 162/79; PULSE 90; RESP 17; TEMP 36.9; O2SAT 97
--- OUTSIDE RECORDS SUMMARY | 2024-12-15 20:12 | XMS_ITS | Clinical Summary ---
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
[2024-12-15 20:56] LABS: Appearance Urine Clear; Glucose Urine UA Negative (Negative); PH 5.5 (5.0-9.0); Specific Gravity - Urine <= 1.005 (1.005-1.025); UMIC TRIGGER UACC YES
[2024-12-15 22:17] LABS: OBS Int Ctl Valid YES; OBS1 NEGATIVE (NEGATIVE)
--- NOTE | 2024-12-15 22:32 | PC.NURSE ---
Addendum entered by Daphne Garces RN 12/16/24 01:44: this RN able to collect 1 set of blood cultures, will call lab to obtain second set at this time. pt is difficult blood draw. Original Note: pt difficulty stick, pending ultra sound guided IV placement at this time
[2024-12-15 23:40] VITALS: BP 151/65; PULSE 80; RESP 13; TEMP 36.9; O2SAT 96
[2024-12-15 23:50] VITALS: BP 176/56; PULSE 80; RESP 17; TEMP 36.9
[2024-12-15 23:59] LABS: Troponin-I High Sensitivity 150.2 ng/L (<3.5-17.0)
[2024-12-16] VITALS (15 sets, daily range): BP systolic 122–173; BP diastolic 58–86; PULSE 76–87; RESP 10–20; TEMP 36.1–37.3; O2SAT 94–98
--- NOTE | 2024-12-16 00:54 | P.HPHOSP_ITS ---
History of Present Illness Date of Service: 12/16/24 Attending physician on admission: John Enamorado Chief Complaint: dizziness Pt is an 89 yo female with PMH HFrEF 25%, PNA, HLD, IBS-D, CKD 3b, Vertogo, GERD, LBBB, DM, prolapsed bladder presents to ED with report of worsening dizziness for unknown amount of time. Pt also indicated to ED provider that she has been having vaginal bleeding and lower abdominal pain. Pt also reported 3 weeks of black stool . HGB/HCT today 7.2/ 23.3. Based on previous admission, troponins are often elevated. Pt denies any chest pain, current abd pain or SOB at rest. Pt started 2 units of PRBCs in the ED and is receiving Lasix 20 mgs IV in between noting HF hx. No hypoxia noted. Stool for occult negative but sample was poor. CT scan of ABD and Pelvis note soft tissue R adnexa growth 4.8X4.8X3.9 nonspecific as there is not contrast. Pt also has evidence of diverticulitis/ colitis. No SBO. Pt is on Trulicity for DM mgmt Q SATURDAY. Nonobstructing R kidney stone 2mm also present. 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 Pt has evidence of stool burden in cecum. Pt started on Zosyn and will continue, dose adjusted for creatinine clearance. UA negative for UTI, heme or RBcs. Hemodynamics stable on admission. Pt being admitted for symptomatic anemia with diverticulitis/colits and adnexa mass as well as investigation of blood loss and possible sources. Review of Systems 2 Review of Systems: Pt denies chest pain, SOB at rest, abd pain, N/V. Pt has onctinued dizziness but overall is feeling better. Yes all other systems are reviewed and are negative FOR[facility]LY [facility] Medical History Prolapsed hemorrhoids Diabetic nephropathy with proteinuria Hyperlipidemia HTN (hypertension) IBS (irritable bowel syndrome) Prolapsed internal hemorrhoids Chronic kidney disease, stage III (moderate) Obesity (BMI 30-39.9) Mixed hyperlipidemia Hypertensive heart disease Left bundle branch block Bladder prolapse Diabetes mellitus GERD (gastroesophageal reflux disease) Cognitive capacity: A/O X3 Functional capacity: uses cane/walker Patient : No Family History Father No problems noted. Mother No problems noted. Family/Other Lung cancer Esophagus cancer Other Mental health disorder Substance use disorder Surgical History History of bladder repair surgery History of ERCP History of bilateral cataract extraction History of cholecystectomy History of excision of mass History of colonoscopy History of ankle surgery Social History Household Members: Family Housing: House Do you presently have visiting nurse or other home services: Yes (OIL AND GAS EXPLORATION TECHNICIAN and visiting nurse) Alcohol intake: never Patient Tobacco Use Status: Former Tobacco user Smoked in Last 30 Days: No e-Cigarette/Vaping Use: Never Used Second Hand Smoke Exposure: Yes Use of substances other than those prescribed or required for medical reasons: No Advance Directives: Yes Advance Directives on File: Yes Advance Directives Date on File: 04/19/23 Patient : No service: No Current occupational status: disabled Cognitive needs: Yes (cane/walker) Hearing needs: No Vision needs: Yes (glasses) Ebola Risk: Travel/Contact With Anyone From Affected Area/s: No Has Patient Experienced Ebola Symptoms: No Meds Allergies Allergy/AdvReac Type Severity Reaction Status Date / Time Iodinated Contrast Media (IV Allergy Unknown UNKNOWN Verified 12/15/24 17:29 CONTRAST) Home Medications ?Medication ?Instructions ?Recorded ?Confirmed ?Last Taken ?Type mirabegron 50 mg tablet,extended 50 mg PO DAILY 11/26/24 11/07/24 History release 24 hr (Myrbetriq) dulaglutide 0.75 mg/0.5 mL 0.75 mg subcut MO 11/09/24 11/26/24 11/02/24 History subcutaneous pen injector (Trulicity) omeprazole 20 mg capsule,delayed 20 mg PO DAILY@0630 0 11/09/24 11/26/24 11/07/24 History release Physical Exam 2 Vital Signs and Narrative: Vital Signs: Last Vital Signs Temp 98.5 F 12/16/24 00:06 Pulse 86 12/16/24 00:06 Resp 20 12/16/24 00:06 BP 163/86 H 12/16/24 00:06 Pulse Ox 96 12/15/24 23:40 O2 Del Method Room Air 12/15/24 23:40 BMI result Body Mass Index 28.9 Pt A/O x3, in NAD Neuro: CN II-XII intact EYES: PERRLA, sclerae nonicteric ENT: Nares patent, lips moist Cardiac: S1 S2 RRR, no murmur, no JVD, no edema in Lower ext Pulmonary: lungs diminished bilaterally Abdominal: BS active in all 4 quadrants, no guarding, tenderness, rebounding MSK: strength 4/5 upper and lower extremities : no CVA tenderness no bladder distension Extremities: no edema in lower extremities, PT and DP pulses palpable +2 Psych: mood calm, insight good Skin: no new rashes or lesions Results Labs 12/15/24 18:39 12/15/24 18:39 Labs: Laboratory Results - last 24 hr 12/15/24 12/15/24 12/15/24 18:39 20:43 22:01 MCV 86.3 MCH 26.7 L MCHC 30.9 L RDW 14.0 Plt Count 249 D MPV 9.6 Immature Gran % (Auto) 0.2 Neut % (Auto) 59.1 Lymph % (Auto) 29.8 Garfield % (Auto) 7.4 Eos % (Auto) 3.3 Baso % (Auto) 0.2 Lymph # (Auto) 1.5 Garfield # (Auto) 0.4 Eos # (Auto) 0.2 Baso # (Auto) 0.0 Abs Immat Gran (auto) 0.01 Absolute Neuts (auto) 2.9 Absolute Nucleated RBC 0.000 Nucleated RBC % (auto) 0.0 Anion Gap 11 L Estim Creat Clear Calc 39.3 Estimated GFR 59 Random Glucose 122 H Calcium 8.6 Magnesium 1.9 Total Bilirubin 0.3 Direct Bilirubin 0.1 AST 25 ALT 9 Alkaline Phosphatase 116 Troponin I High Sens 144.5 H* Total Protein 6.2 L Albumin 3.7 Lipase 18 Urine Color Yellow Urine Appearance Clear Urine pH 5.5 Ur Specific [place] <= 1.005 Urine Protein 100 (2+) H Urine Glucose (UA) Negative Urine Ketones Negative Urine Blood Negative Urine Nitrite Negative Ur Leukocyte Esterase Negative Urine RBC 0-2 Urine WBC 0-5 Ur Squamous Epith Cells 0-2 Urine Bacteria None Seen Hyaline Casts 0-2 Stool Occult Blood NEGATIVE Blood Type O Positive Antibody Screen NEGATIVE Crossmatch See Detail 12/15/24 23:22 MCV MCH MCHC RDW Plt Count MPV Immature Gran % (Auto) Neut % (Auto) Lymph % (Auto) Garfield % (Auto) Eos % (Auto) Baso % (Auto) Lymph # (Auto) Garfield # (Auto) Eos # (Auto) Baso # (Auto) Abs Immat Gran (auto) Absolute Neuts (auto) Absolute Nucleated RBC Nucleated RBC % (auto) Anion Gap Estim Creat Clear Calc Estimated GFR Random Glucose Calcium Magnesium Total Bilirubin Direct Bilirubin AST ALT Alkaline Phosphatase Troponin I High Sens 150.2 H* Total Protein Albumin Lipase Urine Color Urine Appearance Urine pH Ur Specific [place] Urine Protein Urine Glucose (UA) Urine Ketones Urine Blood Urine Nitrite Ur Leukocyte Esterase Urine RBC Urine WBC Ur Squamous Epith Cells Urine Bacteria Hyaline Casts Stool Occult Blood Blood Type Antibody Screen Crossmatch ECG Attestation: I personally reviewed and interpreted this ECG as follows: (NSR, LBBB not new, Qtc 490) Prior ECG tracings: available for review Imaging Radiologist's Impressions: CT ABD PELVIS IMPRESSION: 1. Mild wall thickening of the large intestine is nonspecific including sigmoid colon. Differential considerations include mild colitis and diverticulitis given adjacent fluid. 2. No small bowel obstruction. 3. New small pleural effusions with underlying atelectasis and/or consolidation. Please consider attention on follow-up to ensure resolution. 4. Soft tissue right adnexa of measuring 4.8 cm is nonspecific by noncontrast CT. Please consider nonemergent characterization with ultrasound. Assessment and Plan (1) Symptomatic anemia: Status: Acute Plan Pt is an 89 yo female with PMH HFrEF 25%, PNA, HLD, IBS-D, CKD 3b, Vertogo, GERD, LBBB, DM, prolapsed bladder presents to ED with report of worsening dizziness for unknown amount of time. Pt also indicated to ED provider that she has been having vaginal bleeding and lower abdominal pain. Pt also reported 3 weeks of black stool . HGB/HCT today 7.2/ 23.3. Based on previous admission, troponins are often elevated. Pt denies any chest pain, current abd pain or SOB at rest. Symptomatic Anemia - Vaginal bleeding, dark stool reported Pt transfused 2 units started in ED by provider CBC in AM, iron studies and B12 added GI consulted: initial stool neg but poor sample,occult X3 ordered Protonix IV BID Pelvic US in AM noting adnexal mass and report of vaginal bleeding, UA neg for heme, RBCs No NSAIDS No DVT prophylaxis R adnexal mass Pelvic US ordered TALENT ACQUISITION RELATIONSHIP MANAGER consult if indicated Colitis vs Diverticulitis without Sepsis presentation Zosyn 2.25 Q6h, based on creatinine clearance 39 Pain mgmt prn Liquid diet Elevated Troponins Chronic in presentaton as noted with previous admissions ECG negative for ischemic changes Likely demand noting EF 25%, HF Telemetry HFrEF 25-30% (10/2024 last echo), B small pleural effusions BNP pending Lasix ordered 20 mg IV inbetween PRBCs No issues with hypoxia Continue Coreg, losartan once med rec completed Fluid allowance 1500 mls, Low Na diet Daily weights Measure I/Os Constipation/ stool burden cecum Dulcolax suppository X1 now Bowel regimen to include senna, mirilax prn - has hX of IBS-D HLD Continue statin LFTs stable IDDM SSI ACHS Trulicity Q MO Await med rec for insulin regimen CKD Stage 3B Renal fx appears baseline when compared to previous labs UA positive for proteinuria, neg for heme Avoid hypotension Avoid nephrotoxic meds CT notes nonobstructing stone R kidney 2mm DVG prophylaxis: held due to anemia, need for transfusion MED REC PENDING FULL CODE Quality Stroke Does the patient have a stroke diagnosis?: No Reason for No Anti-thrombotic by Day Two: Contraindicated VTE Prior VTE?: No VTE Risk Level:: Medical - moderate - high VTE Device Contraindication: N/A - Device Ordered VTE Drug Contraindication: Treatment Not Indicated
[2024-12-16] MEDS: Furosemide 20 MG/2 ML VIAL IVPUSH (01:56)
--- NOTE | 2024-12-16 03:59 | HO.NURTONUR ---
Addendum entered by Daphne Garces RN 12/16/24 04:48: pt refusing lab draws this morning despite education on importance of lab work Addendum entered by Daphne Garces RN 12/16/24 04:39: Pt was able to stand and pivot to hospital bed from stretcher, purwick in place and working well. plan of care ongoing Original Note: Pt from home with complaint of bilateral ear pain with associated dizziness, lightheaded, and unsteady gait. Pt has hx of vertigo but states it feels like something is in her ears. Pt also reporting vaginal bleeding, lower abdominal pain and black stools x3 weeks. Pt denies symptoms of sob, chest pain, or any other symptoms. Work up in the ed showed: LABS: RBC- 2.7 HGB-7.2 HCT-23.3 troponin--> 144.5-->150.2 (chronic for pt) CT abdomen/pelvis: IMPRESSION: 1. Mild wall thickening of the large intestine is nonspecific including sigmoid colon. Differential considerations include mild colitis and diverticulitis given adjacent fluid. 2. No small bowel obstruction. 3. New small pleural effusions with underlying atelectasis and/or consolidation. Please consider attention on follow-up to ensure resolution. 4. Soft tissue right adnexa of measuring 4.8 cm is nonspecific by noncontrast CT. Please consider nonemergent characterization with ultrasound. Pt received 2 units of RBCs, tolerated well. Pt has 20G US guided IV in LAC and 22G IV in RFA and has been medicated per mar. Pt is a&ox3, able to make her needs known, and 1 assist. Pt being amditted for symptomatic anemia.
[2024-12-16 05:50] LABS: Anion Gap 14 (12-20); Blood Urea Nitrogen 9 mg/dL (9-16); Calcium 8.9 mg/dL (8.4-10.2); Carbon Dioxide 22 mmol/L (22-29); Chloride 109 mmol/L (96-108); Creatinine Clr Calc Pharmacy 41.6; Estimated Glomerular Filt Rate > 60; Potassium 3.9 mmol/L (3.3-5.1); Sodium 141 mmol/L (135-145)
[2024-12-16 06:01] LABS: OBS Int Ctl Valid YES; OBS1 NEGATIVE (NEGATIVE)
--- NOTE | 2024-12-16 06:24 | PM.EVENT ---
Event Note Date of Service: 12/16/24 Event Note: 0625 Nursing updated that pt had large BM (noted stool burden on CT) and specimen sent for occult. Pt tolerated 2 units of PRBCs with lasix in between and currently stable respiratory melvin. Pt received one dose of meclizine for continues intermittent dizziness with good effect. Pt uses meclizine at home. Pt also given one dose of coreg for her HTN. Time Spent With Patient Time: Total time managing care of this patient today ____ minutes.
[2024-12-16 06:31] LABS: Folate 15.0 ng/mL (> or = 4.0); Vitamin B12 459 pg/mL (200-900)
--- NOTE | 2024-12-16 06:56 | HO.NURTONUR ---
Pt BIBA from home, family south korean speaking and per mother pt had possible seizure activity, mother also reports pt became unresponsive, denies any tonic-clonic movements. In ED Pt noted leukocytosis of 28.4, sepsis workup complete, was started on vancomycin and Zosyn in ED. Pt has suprapubic catheter draining yellow urine. +UTI. Patient's mother explains that patient eats a pureed diet and is able to drink fluids. There have been no issues at home with aspiration. 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 Pt is nonverbal and on bedrest, contractures to bilateral lower legs. Seizure precautions in place. Plan for neuro consult, and wpond consult, and question need for MRI. Ultrasound guided IV to RUE with LR @100 mL/hr.
[2024-12-16 07:33] LABS: Glucose, Whole Blood 130 mg/dL (60-115)
--- NOTE | 2024-12-16 07:34 | PHA.MEDREC ---
Pharmacy Consult ? Medication Reconciliation Pharmacy has completed the medication reconciliation. Pt was here recently, used discharge note and pharmacy claims to reviewed med rec done at that time.
--- NOTE | 2024-12-16 08:04 | MHC.EDTECH ---
Patient's canister was emptied, and the urine output was 800ml.
--- NOTE | 2024-12-16 13:05 | MHC.CM.PN ---
IMM 12/16/24, Pt. is SSO, PCP confirmed: Dr. Deras, HCP on file and confirmed: Fabienne Muñoz, her dtr, who was bedside. Pt. lives with 2 of her children, she has 2 COMMUNICATIONS PROFESSOR's am and pm daily. For DME, she has a cane and a walker. Family to transport home at DC, DCP; home, resume COMMUNICATIONS PROFESSOR services. CM to follow for DC needs.
[2024-12-16 13:34] LABS: MANUAL DIFF FLAG NO
--- NOTE | 2024-12-16 13:36 | MHC.EDTECH ---
[facility]
--- NOTE | 2024-12-16 13:37 | MHC.EDTECH ---
pt ate about 25% of lunch tray
[2024-12-16 13:41] LABS: Hematocrit 33.8 % (37.0-47.0); Hemoglobin 10.7 g/dl (12.0-16.0); Imm Gran Abs Auto 0.01 X10*3/uL (0.00-0.03); Imm Gran Pct Auto 0.2 % (0.0-0.4); Lymphocytes Absolute Auto 1.2 X10*3/uL (1.2-4.9); Mean Corpuscular HGB Conc 31.7 g/dl (31.0-35.0); Mean Corpuscular Hemoglobin 27.0 pg (27.0-33.0); Mean Corpuscular Volume 85.4 fL (80.0-98.0); NRBC Abs Auto 0.000 X10*3/uL (0.0-0.012); NRBC Pct Auto 0.0 /100WBC (0.0-0.2); Platelet Count 286 X10*3/uL (160-400); Red Blood Count 3.96 X10*6/uL (4.20-5.50); White Blood Count 5.2 X10*3/uL (4.8-10.8)
[2024-12-16 13:44] LABS: Glucose, Whole Blood 135 mg/dL (60-115)
[2024-12-16 13:55] LABS: B Type Natriuretic Peptide 2423 pg/mL (<100)
[2024-12-16 13:57] LABS: Iron 110 mcg/dL (30-160); Percent Iron Saturation 32 % (15-50); Total Iron Binding Capacity 343 mcg/dL (228-428); Unsaturated Iron Binding 233 ug/dL
--- NOTE | 2024-12-16 15:38 | PM.EVENT ---
Event Note Date of Service: 12/16/24 Event Note: Chart reviewed patient examined. Agree with H&P and plan as outlined Time Spent With Patient Time: Total time managing care of this patient today ____ minutes.
[2024-12-16 17:06] LABS: Glucose, Whole Blood 108 mg/dL (60-115)
[2024-12-16] MEDS: 0.9 % Sodium Chloride Flush 3 ML SYRINGE IVFLUSH ×2 (17:27→21:12)
--- NOTE | 2024-12-16 19:04 | PM.EVENT ---
Event Note Date of Service: 12/16/24 Event Note: GI Consult-Full note dictated-History from patient and EMR, along with family members who helped with interpreting including her son-in-law, Seven. Imp: At this time she shows no signs of active GI bleeding with 2 stools that have been Hemoccult negative since admission. She denies any definitive history of GI bleeding at home. She had a negative upper endo with me in 10/2024. She denies any abdominal pain, her abdominal exam is benign, and she is hungry. Her Iron studies are WNL as well. I suspect her anemia is not due to GI blood loss and may be related to a reported component of vaginal bleeding and/or chronic disease . She does not show any clinical signs of diverticulitis or colitis at this time. Rec: Advance to soft diet, supportive care, change to po PPI, follow Hgb. I would not recommend an upper endo or colonoscopy at this time. D/W patient and her family in detail. They are comofrtable with this plan. Thanks Time Spent With Patient Time: Total time managing care of this patient today ____ minutes.
[2024-12-16 21:14] LABS: Glucose, Whole Blood 132 mg/dL (60-115)
--- NOTE | 2024-12-17 03:19 | CONS_ITS ---
DATE OF SERVICE: 12/16/2024 REASON FOR CONSULTATION: Anemia. HISTORY OF PRESENT ILLNESS: History has been obtained from the patient with her family members serving as interpreters and from the medical record. The patient is an 89-year-old female I met in October when she presented with an esophageal obstruction from a food bolus. This was cleared endoscopically. There was no sign of any other abnormalities such as ulcer disease, AVMs, or neoplasm. She is on a chronic PPI at home. Since being home, she has been eating comfortably. She has had no further episodes of dysphagia. She came to the ER with weakness and was found to have anemia with a hemoglobin of 7.2. Her hemoglobin on November 24 was 7.8. On November 08, was 8.3. She has had some constipation, but denied any melena nor hematochezia. There has been no vomiting. She denies any abdominal pain. She denies any diarrhea. She received 2 units of blood and a subsequent hemoglobin today was 10.7. She does feel better. She has been on liquids thus far and she is hungry. She was on 81 mg aspirin at home, but no other blood thinners or NSAIDs. There is also report of some vaginal bleeding. MEDICATIONS: In the hospital include acetaminophen, Tums, carvedilol, sliding scale insulin, melatonin, omeprazole, Zofran p.r.n., IV Zosyn. PAST MEDICAL HISTORY: She has diabetes mellitus. History of CHF. Hyperlipidemia. Left bundle branch block. Anemia. Episode of esophageal obstruction in October as above. She also had negative upper endoscopy and colonoscopy with Dr. Bob in 2022. Bladder suspension. Cholecystectomy. Cataract surgery. Neuropathy. There is no reported history of [place], stroke, lung disease. SOCIAL HISTORY: She lives with her family. She does not smoke nor use any significant amounts of alcohol. FAMILY HISTORY: Noncontributory. REVIEW OF SYSTEMS: CONSTITUTIONAL: She has been feeling somewhat weak and lightheaded recently due to the anemia. CARDIAC: No chest pain. PULMONARY: No coughing or hemoptysis. GI: As above. PHYSICAL EXAMINATION: GENERAL: The patient is a pleasant, alert, comfortable appearing elderly female, lying in bed, in no distress. SKIN: Warm and dry. HEENT: Anicteric sclerae. ABDOMEN: Soft, nondistended, nontender. LABORATORY DATA: As above. She has had 2 hemoccult negative stools. Hemoglobin after transfusion was 10.7, MCV 85. White blood cell count 5.2, platelets 286,000. Normal electrolytes. BUN 9, creatinine 0.9, iron 110, iron saturation 32%, normal B12 and folate level. CT of the abdomen described some mild wall thickening of the large intestine, which was described as nonspecific. There is no obstruction. IMPRESSION: Given the patient's clinical history with 2 Hemoccult-negative stools and no report of any obvious GI bleeding, as well as a negative upper endoscopy in regard to any bleeding lesions just last month, as well as both negative upper endoscopy and colonoscopy in 2022, I advised the patient and her family that there does not appear to be any chronic gastrointestinal blood loss contributing to the anemia. She also had normal iron studies. Given her age and multiple medical problems, she may have an anemia of chronic disease. The report of some vaginal bleeding may be contributing to the anemia as well. At this point, I do not think she requires any type of endoscopic intervention. Given her age and multiple comorbidities, it would be best to avoid that anyway unless it is absolutely indicated by active bleeding. Again, at this point, there is no sign of that. At this point, I would continue her PPI, for which she has been on chronically. I will continue to follow her hemoglobin. She could require a Hematology consultation if her anemia continues to be problematic for her. Of note in regard to the CT report of possible diverticulitis and/or colitis, I do not think that is the case, given her benign abdominal exam and no symptoms to support that. At this point, I would advance her diet as well. This has been discussed with the patient and her family in detail. They are all comfortable with the plan. Thank you for the consultation. MD WARREN Whittington/KERRIE / [phone] GORD[place]
[2024-12-17 07:36] VITALS: BP 144/67; PULSE 79; RESP 16; TEMP 36.2; O2SAT 97
[2024-12-17 07:47] LABS: Glucose, Whole Blood 104 mg/dL (60-115)
[2024-12-17 08:14] LABS: MANUAL DIFF FLAG NO
[2024-12-17 08:29] LABS: Hematocrit 34.8 % (37.0-47.0); Hemoglobin 11.0 g/dl (12.0-16.0); Imm Gran Abs Auto 0.01 X10*3/uL (0.00-0.03); Imm Gran Pct Auto 0.2 % (0.0-0.4); Lymphocytes Absolute Auto 1.3 X10*3/uL (1.2-4.9); Mean Corpuscular HGB Conc 31.6 g/dl (31.0-35.0); Mean Corpuscular Hemoglobin 26.9 pg (27.0-33.0); Mean Corpuscular Volume 85.1 fL (80.0-98.0); NRBC Abs Auto 0.000 X10*3/uL (0.0-0.012); NRBC Pct Auto 0.0 /100WBC (0.0-0.2); Platelet Count 303 X10*3/uL (160-400); Red Blood Count 4.09 X10*6/uL (4.20-5.50); White Blood Count 5.7 X10*3/uL (4.8-10.8)
[2024-12-17] MEDS: 0.9 % Sodium Chloride Flush 3 ML SYRINGE IVFLUSH ×3 (08:29→20:52)
[2024-12-17 08:36] LABS: Alanine Aminotransferase 10 U/L (0-31); Albumin Level 3.8 g/dL (3.5-5.0); Alkaline Phosphatase 119 U/L (39-117); Aspartate Amino Transferase 24 U/L (5-31); Blood Urea Nitrogen 8 mg/dL (9-16); Calcium 8.7 mg/dL (8.4-10.2); Creatinine Clr Calc Pharmacy 38.4; Estimated Glomerular Filt Rate 57; Total Protein 6.6 g/dL (6.5-8.0)
[2024-12-17 08:43] LABS: Anion Gap 13 (12-20); Carbon Dioxide 28 mmol/L (22-29); Chloride 107 mmol/L (96-108); Potassium 3.8 mmol/L (3.3-5.1); Sodium 144 mmol/L (135-145)
[2024-12-17 09:32] LABS: B Type Natriuretic Peptide 1399 pg/mL (<100)
[2024-12-17 11:12] LABS: Glucose, Whole Blood 269 mg/dL (60-115)
[2024-12-17 11:26] VITALS: BP 116/55; PULSE 84; RESP 16; TEMP 36.4; O2SAT 98
[2024-12-17] MEDS: oxyCODONE HCl Immed Release 5 MG TABLET PO (12:13)
--- NOTE | 2024-12-17 13:58 | HO.PM.IMPN ---
Subjective Subjective Date of Service: 12/17/24 Interval History: No acute issues overnight. (all info via suction drum drier operator) Review of Systems Denies chest pain Denies shortness of breath Denies nausea vomiting diarrhea Denies fever chills Physical Exam Vital Signs: Vital Signs: Last Vital Signs Temp 97.5 F 12/17/24 11:26 Pulse 84 12/17/24 11:26 Resp 16 12/17/24 11:26 BP 116/55 L 12/17/24 11:26 Pulse Ox 98 12/17/24 11:26 O2 Del Method Room Air 12/17/24 11:26 BMI result Body Mass Index 28.9 Const: Other: Awake alert no acute distress Resp: Other: Clear to auscultation bilaterally no rales rhonchi or wheezes Cardio: Other: No S4; positive S1-S2; no S3 murmurs rubs or gallops GI: Other: Soft quiet bowel sounds Extrem: Other: No edema bilaterally Objective Data Active Medications Acetaminophen (Acetaminophen 325 Mg Tablet) 650 mg PO Q6H PRN PRN Reason: Pain, Mild 1-3,fever,headache Last Admin: 12/17/24 08:28 Dose: 650 mg Documented By: BLANCHE Albuterol/Ipratropium (Albuterol/Iprat 2.5/0.5mg 3 Ml Ampul.Neb) 3 ml INHALE Q4H PRN PRN Reason: Shortness of Breath/Wheezing Calcium Carbonate (Calcium Carbonate 750 Mg Tab.Chew) 750 mg PO Q4H PRN PRN Reason: Heartburn Dextrose (Dextrose 50 % 25 Gm/50 Ml Syringe) 25 gm IVPUSH Q15M PRN; Protocol PRN Reason: per Hypoglycemia Standing Ord. Glucose (Glucose Gel 15 Gm Gel..Gram.) 15 gm PO Q15M PRN; Protocol PRN Reason: per Hypoglycemia Standing Ord. Piperacillin Sod/Tazobactam (Sod 2.25 gm/ Sodium Chloride) 50 mls @ 100 mls/hr IV Q6H [facility] Last Infusion: 12/17/24 08:58 Dose: Infused Documented By: BLANCHE Insulin Human Lispro (Insulin Lispro 100 Unit/Ml 3 Ml Vial) 0 unit SUBCUT QIDACHS [facility]; Protocol Last Admin: 12/17/24 11:47 Dose: 6 unit Documented By: BLANCHE Magnesium Hydroxide (Milk Of Magnesia 30 Ml Oral.Susp) 30 ml PO DAILY PRN PRN Reason: Constipation Melatonin (Melatonin 3 Mg Tablet) 6 mg PO BEDTIME PRN PRN Reason: Insomnia Omeprazole (Omeprazole 20 Mg Capsule.Dr) 20 mg PO DAILY@0630 [facility] Last Admin: 12/17/24 05:43 Dose: 20 mg Documented By: OLGA LIDIA Ondansetron HCl (Ondansetron Hcl 4 Mg/2 Ml Vial) 4 mg IVPUSH Q8H PRN PRN Reason: Nausea and Vomiting Oxycodone HCl (Oxycodone Hcl Immed Release 5 Mg Tablet) 5 mg PO Q4H PRN PRN Reason: Pain, Moderate(Pain Scale 4-6) Last Admin: 12/17/24 12:13 Dose: 5 mg Documented By: BLANCHE Sodium Chloride (0.9 % Sodium Chloride Flush 3 Ml Syringe) 3 ml IVFLUSH [facility] Last Admin: 12/17/24 08:29 Dose: 3 ml Documented By: BLANCHE Labs 12/17/24 08:09 12/17/24 08:09 Labs: Laboratory Results - last 24 hr 12/16/24 12/16/24 12/16/24 13:28 17:02 21:06 MCV MCH MCHC RDW Plt Count MPV Immature Gran % (Auto) Neut % (Auto) Lymph % (Auto) [place] % (Auto) Eos % (Auto) Baso % (Auto) Lymph # (Auto) [place] # (Auto) Eos # (Auto) Baso # (Auto) Abs Immat Gran (auto) Absolute Neuts (auto) Absolute Nucleated RBC Nucleated RBC % (auto) Anion Gap Estim Creat Clear Calc Estimated GFR POC Glucose 108 132 H Fasting Glucose Calcium Total Bilirubin AST ALT Alkaline Phosphatase B-Natriuretic Peptide Total Protein Albumin TSH 0.96 12/17/24 12/17/24 12/17/24 07:37 08:09 11:04 MCV 85.1 MCH 26.9 L MCHC 31.6 RDW 14.1 Plt Count 303 MPV 9.7 Immature Gran % (Auto) 0.2 Neut % (Auto) 65.8 Lymph % (Auto) 22.7 [place] % (Auto) 8.3 Eos % (Auto) 2.8 Baso % (Auto) 0.2 Lymph # (Auto) 1.3 [place] # (Auto) 0.5 Eos # (Auto) 0.2 Baso # (Auto) 0.0 Abs Immat Gran (auto) 0.01 Absolute Neuts (auto) 3.8 Absolute Nucleated RBC 0.000 Nucleated RBC % (auto) 0.0 Anion Gap 13 Estim Creat Clear Calc 38.4 Estimated GFR 57 POC Glucose 104 269 H Fasting Glucose 114 H Calcium 8.7 Total Bilirubin 0.5 AST 24 ALT 10 Alkaline Phosphatase 119 H B-Natriuretic Peptide 1399 H Total Protein 6.6 Albumin 3.8 TSH Microbiology Microbiology Results: Microbiology 12/16/24 01:43 Blood Culture - Preliminary Blood - Venous No growth after 24 hours. Assessment and Plan (1) Anemia: Status: Acute (2) Diverticulitis: Status: Acute Plan Pt is an 89 yo female with PMH HFrEF 25%, PNA, HLD, IBS-D, CKD 3b, Vertogo, GERD, LBBB, DM, prolapsed bladder presents to ED with report of worsening dizziness for unknown amount of time. Pt also indicated to ED provider that she has been having vaginal bleeding and lower abdominal pain. Pt also reported 3 weeks of black stool . HGB/HCT today 7.2/ 23.3. Based on previous admission, troponins are often elevated. Pt denies any chest pain, current abd pain or SOB at rest. 1.Symptomatic Anemia -hemoglobin stable -appreciate GI input. No indication for intervention -protonix IV BID 2.R adnexal mass -outpatient follow up 3.Diverticulitis -zosyn(2) -tolerating diet Elevated Troponins 4.HFrEF 25-30% (10/2024 last echo), -BNP improved throughout therapies -does not examined and failure -repeat BNP in a.m. 5.DM II - acceptable control on current therapies -lispro correctional scale -adjust as indicated 6.CKD Stage 3B -stable and well compensated DVG prophylaxis: held due to anemia, need for transfusion MED REC PENDING FULL CODE Quality Stroke Does the patient have a stroke diagnosis?: No Reason for No Anti-thrombotic by Day Two: Contraindicated VTE Prior VTE?: No VTE Risk Level:: Medical - moderate - high VTE Device Contraindication: N/A - Device Ordered VTE Drug Contraindication: Treatment Not Indicated
[2024-12-17] MEDS: Aspirin Enteric Coated 81 MG TABLET.DR PO (14:42)
[2024-12-17 15:19] VITALS: BP 126/57; PULSE 81; RESP 16; TEMP 36.5; O2SAT 98
[2024-12-17 16:18] LABS: Glucose, Whole Blood 78 mg/dL (60-115)
[2024-12-17 20:00] VITALS: BP 133/73; PULSE 84; RESP 16; TEMP 36.3; O2SAT 97
[2024-12-17 20:53] LABS: Glucose, Whole Blood 120 mg/dL (60-115)
[2024-12-18] VITALS: BP 130/60; PULSE 78; RESP 16; TEMP 36.8; O2SAT 96
[2024-12-18 03:59] VITALS: BP 140/64; PULSE 75; RESP 16; TEMP 36.7; O2SAT 96
[2024-12-18 07:04] LABS: Glucose, Whole Blood 90 mg/dL (60-115)
[2024-12-18 07:07] LABS: MANUAL DIFF FLAG NO
[2024-12-18 07:16] VITALS: BP 148/67; PULSE 80; RESP 16; TEMP 36.7; O2SAT 96
[2024-12-18 07:20] LABS: Hematocrit 29.7 % (37.0-47.0); Hemoglobin 9.7 g/dl (12.0-16.0); Imm Gran Abs Auto 0.01 X10*3/uL (0.00-0.03); Imm Gran Pct Auto 0.2 % (0.0-0.4); Lymphocytes Absolute Auto 1.6 X10*3/uL (1.2-4.9); Mean Corpuscular HGB Conc 32.7 g/dl (31.0-35.0); Mean Corpuscular Hemoglobin 27.9 pg (27.0-33.0); Mean Corpuscular Volume 85.3 fL (80.0-98.0); NRBC Abs Auto 0.000 X10*3/uL (0.0-0.012); NRBC Pct Auto 0.0 /100WBC (0.0-0.2); Platelet Count 252 X10*3/uL (160-400); Red Blood Count 3.48 X10*6/uL (4.20-5.50); White Blood Count 5.1 X10*3/uL (4.8-10.8)
[2024-12-18 07:40] LABS: Alanine Aminotransferase 6 U/L (0-31); Albumin Level 3.2 g/dL (3.5-5.0); Alkaline Phosphatase 102 U/L (39-117); Anion Gap 10 (12-20); Aspartate Amino Transferase 22 U/L (5-31); Blood Urea Nitrogen 9 mg/dL (9-16); Calcium 7.9 mg/dL (8.4-10.2); Carbon Dioxide 29 mmol/L (22-29); Chloride 109 mmol/L (96-108); Creatinine Clr Calc Pharmacy 30.7; Estimated Glomerular Filt Rate 44; Potassium 3.5 mmol/L (3.3-5.1); Sodium 144 mmol/L (135-145); Total Protein 5.8 g/dL (6.5-8.0)
[2024-12-18] MEDS: Aspirin Enteric Coated 81 MG TABLET.DR PO (07:57)
[2024-12-18] MEDS: 0.9 % Sodium Chloride Flush 3 ML SYRINGE IVFLUSH (07:58)
[2024-12-18] MEDS: Mirabegron 50 MG TAB.ER.24H PO (07:58)
[2024-12-18 11:19] LABS: Glucose, Whole Blood 232 mg/dL (60-115)
[2024-12-18 11:43] VITALS: BP 135/57; PULSE 82; RESP 16; TEMP 36.7; O2SAT 97
--- NOTE | 2024-12-18 14:24 | PM.DS ---
DS: Providers Provider Date of Service: 12/18/24 Date of admission: 12/16/24 00:51 Date of discharge: 12/18/24 Primary care physician: Rico Deras MD Consults: 12/16/24 01:04 Consult to Gastroenterology Routine Consulting Provider: Vu Doty Reason for consultation: possible GIB, symptomatic anemia, dark tarry stool Has provider been notified: No DS: Diagnosis Discharge Diagnosis (1) Anemia: Status: Acute (2) Diverticulitis: Status: Acute DS: Summary Hospital Course Hospital Course: 89 yo female with PMH HFrEF 25%, PNA, HLD, IBS-D, CKD 3b, Vertogo, GERD, LBBB, DM, prolapsed bladder presents to ED with report of worsening dizziness for unknown amount of time. Pt also indicated to ED provider that she has been having vaginal bleeding and lower abdominal pain. Pt also reported 3 weeks of black stool . HGB/HCT today 7.2/ 23.3. Based on previous admission, troponins are often elevated. Pt denies any chest pain, current abd pain or SOB at rest. Pt started 2 units of PRBCs in the ED and is receiving Lasix 20 mgs IV in between noting HF hx. No hypoxia noted. Stool for occult negative but sample was poor. CT scan of ABD and Pelvis note soft tissue R adnexa growth [id number] nonspecific as there is not contrast. Pt also has evidence of diverticulitis/ colitis. No SBO. Pt is on Trulicity for DM mgmt Q SATURDAY. Nonobstructing R kidney stone 2mm also present. 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 Pt has evidence of stool burden in cecum. Pt started on Zosyn and will continue, dose adjusted for creatinine clearance. UA negative for UTI, heme or RBcs. Hemodynamics stable on admission. Pt being admitted for symptomatic anemia with diverticulitis/colits and adnexa mass as well as investigation of blood loss and possible sources. Hospital Course Admitted to telemetry where monitor failed to demonstrate an acute dysrhythmia. She was maintained on Zosyn. She had a GI consult by Dr. Doty. Dr. Doty felt given all the clinical findings in the recent exams there was no indication for any acute scope. Patient has a history of a right adnexal mass which was verified by ultrasound. This can be addressed as an outpatient with follow up in [facility] as scheduled. At this point in time she has tolerated diet and she is medically acceptable for discharge Time Attestation Discharge Coordination Time (in mins): 35 Quality: Safe Use of Opioids Does Pt have an Active Cancer Diagnosis on the Problem List?: No Quality: Stroke Does the patient have a stroke diagnosis?: No Physical Exam Vital Signs: Vital Signs: Last Vital Signs Temp 98.0 F 12/18/24 11:43 Pulse 82 12/18/24 11:43 Resp 16 12/18/24 11:43 BP 135/57 L 12/18/24 11:43 Pulse Ox 97 12/18/24 11:43 O2 Del Method Room Air 12/18/24 11:43 BMI result Body Mass Index 28.9 Const: Other: Awake alert no acute distress Resp: Other: Clear to auscultation bilaterally no rales rhonchi or wheezes Cardio: Other: No S4; positive S1-S2; no S3 murmurs rubs or gallops GI: Other: Soft quiet bowel sounds Extrem: Other: No edema bilaterally DS: Data Data Completed and Pending Labs on day of discharge: Laboratory Results - last 24 hr 12/17/24 12/17/24 12/18/24 16:12 20:47 06:20 WBC 5.1 RBC 3.48 L Hgb 9.7 L Hct 29.7 L MCV 85.3 MCH 27.9 MCHC 32.7 RDW 14.3 Plt Count 252 MPV 9.9 Immature Gran % (Auto) 0.2 Neut % (Auto) 53.0 Lymph % (Auto) 30.7 [place] % (Auto) 10.4 Eos % (Auto) 5.3 H Baso % (Auto) 0.4 Lymph # (Auto) 1.6 [place] # (Auto) 0.5 Eos # (Auto) 0.3 Baso # (Auto) 0.0 Abs Immat Gran (auto) 0.01 Absolute Neuts (auto) 2.7 Absolute Nucleated RBC 0.000 Nucleated RBC % (auto) 0.0 Sodium 144 Potassium 3.5 Chloride 109 H Carbon Dioxide 29 Anion Gap 10 L BUN 9 Creatinine 1.15 Estim Creat Clear Calc 30.7 Estimated GFR 44 POC Glucose 78 120 H Fasting Glucose 86 Calcium 7.9 L D Total Bilirubin 0.3 AST 22 ALT 6 Alkaline Phosphatase 102 Total Protein 5.8 L Albumin 3.2 L 12/18/24 12/18/24 06:57 11:12 WBC RBC Hgb Hct MCV MCH MCHC RDW Plt Count MPV Immature Gran % (Auto) Neut % (Auto) Lymph % (Auto) [place] % (Auto) Eos % (Auto) Baso % (Auto) Lymph # (Auto) [place] # (Auto) Eos # (Auto) Baso # (Auto) Abs Immat Gran (auto) Absolute Neuts (auto) Absolute Nucleated RBC Nucleated RBC % (auto) Sodium Potassium Chloride Carbon Dioxide Anion Gap BUN Creatinine Estim Creat Clear Calc Estimated GFR POC Glucose 90 232 H Fasting Glucose Calcium Total Bilirubin AST ALT Alkaline Phosphatase Total Protein Albumin Preliminary micro results at discharge 12/16/24 01:43 Blood Culture - Preliminary Blood - Venous No growth after 48 hours. 12/16/24 14:44 Blood Culture - Preliminary Blood - Venous No growth after 24 hours. Discharge Plan Discharge Anticipated Discharge Date/Time: 12/18/24 14:00 Patient Disposition: Home, Self-Care Discharge Diagnosis: Diverticulitis Referrals: Rico Deras MD [Primary Care Provider, Internal Medicine] - 1 Week Discharge Medications: New amoxicillin-pot clavulanate 875-125 mg tablet 1 tab PO BID Qty: 14 0RF Continued (DME) bedside commode Kit See Rx Instructions .Route Qty: 1 0RF Rx Instructions: As directed (DME) blood-glucose meter [OneTouch Ultra2 Meter] Misc See Rx Instructions .Route Qty: 1 0RF Rx Instructions: test 3 times daily (DME) lancets [OneTouch UltraSoft 2 Lancet] 30 gauge misc See Rx Instructions .Route Qty: 100 12RF Rx Instructions: test 3 times per day (DME) Raised toilet seat with arms See Rx Instructions .Route .MEDSUPPLY Qty: 1 0RF Rx Instructions: As directed gabapentin 400 mg capsule 400 mg PO BID Qty: 180 4RF (DME) OneTouch Ultra Test Strip See Rx Instructions .Route Qty: 100 11RF Rx Instructions: test 3 times per day (DME) body wipes See Rx Instructions .Route .MEDSUPPLY Qty: 1 3RF Rx Instructions: As directed (DME) diaper,brief,adult,disposable Misc See Rx Instructions .Route Qty: 100 0RF Rx Instructions: As directed size mediun (DME) Disposable bed pads See Rx Instructions .Route .MEDSUPPLY Qty: 3 3RF Rx Instructions: As directed (DME) Adult pull ups medium See Rx Instructions .Route .MEDSUPPLY Qty: 240 11RF Rx Instructions: As directed carvedilol 6.25 mg tablet 6.25 mg PO BID Qty: 180 3RF Rx Instructions: must administer with a meal/food (DME) Disposable tiesha-pads See Rx Instructions .Route .MEDSUPPLY Qty: 240 11RF Rx Instructions: As directed aspirin [Adult Aspirin Regimen] 81 mg tablet,delayed release (DR/EC) 81 mg PO DAILY Qty: 90 3RF insulin glargine U-300 conc [Toujeo SoloStar U-300 Insulin] 300 unit/mL (1.5 mL) insulin pen 20 unit subcut DAILY Qty: 4.5 0RF atorvastatin 20 mg tablet 20 mg PO BEDTIME Qty: 90 3RF meclizine [Motion Sickness Relief(mecliz)] 25 mg tablet 25 mg PO DAILY PRN (Reason: motion sickness) Qty: 14 0RF tramadol 50 mg tablet 50 mg PO BID PRN (Reason: pain) Qty: 60 0RF epinephrine [EpiPen 2-M[place]o] 0.3 mg/0.3 mL auto-injector 0.3 mg IM Q10M PRN (Reason: anaphylaxis) Qty: 1 0RF Rx Instructions: for 2 doses dicyclomine 10 mg capsule 10 mg PO BID PRN (Reason: abdominal pain) Qty: 10 0RF omeprazole 20 mg capsule,delayed release(DR/EC) 20 mg PO DAILY@0630 Trulicity 0.75 mg/0.5 mL pen injector 0.75 mg subcut MO lidocaine 4 % Adhesive Patch,Medicated 1 patch TOPICAL DAILY PRN (Reason: Pain) estradiol 0.01 % (0.1 mg/gram) cream 1 appl vaginal DAILY losartan 50 mg tablet 50 mg PO DAILY Myrbetriq 50 mg tablet extended release 24 hr 50 mg PO DAILY (DME) blood pressure monitor [Blood Pressure Kit] Kit See Rx Instructions .ROUTE .MEDSUPPLY Qty: 1 0RF Rx Instructions: As directed Discharge Orders: Discharge Order (Routine); Ordered 12/18/24 Ordered By: Adam Dueñas Diet: Advance to usual diet Activity on Discharge: As tolerated Stand Alone Forms: Patient Portal Discharge page Print Language: Greek Care Plan Goals: Resume all meds as taken prior to hospitalization Health Concerns: Augmentin 875 twice daily has been added to your regimen complete antibiotic as ordered Plan of Treatment: Follow up with the PCP next available Assessment: See discharge summary
--- NOTE | 2024-12-18 14:34 | MHC.CM.PN ---
Pt is medically cleared for discharge home self-care, pt will arrange her own transport home today.
== END 2024-12-18 14:55 | disposition home or self-care (01) | DRG 812 ==
LOC: HO.ED 21:00 → HO.EDOVER 12-16 00:57 → HO.IMC 12-16 15:30
PROVIDERS: Physician Assistant Medical; Admitting Provider Nurse Practitioner Family; Emergency Provider Student in an Organized Health Care Education/Training Program; PCP Internal Medicine; Visit Provider Hospitalist
DX: D64.9 Anemia, unspecified (principal); I13.0 Hypertensive heart and chronic kidney disease with heart failure and stage 1 through stage 4 chronic kidney disease, or unspecified chronic kidney disease; I50.22 Chronic systolic (congestive) heart failure; K57.32 Diverticulitis of large intestine without perforation or abscess without bleeding; N93.9 Abnormal uterine and vaginal bleeding, unspecified; K59.00 Constipation, unspecified; N83.9 Noninflammatory disorder of ovary, fallopian tube and broad ligament, unspecified; N18.32 Chronic kidney disease, stage 3b; E11.22 Type 2 diabetes mellitus with diabetic chronic kidney disease; Z79.4 Long term (current) use of insulin; Z79.82 Long term (current) use of aspirin; Z79.85 Long-term (current) use of injectable non-insulin antidiabetic drugs; Z79.899 Other long term (current) drug therapy
CPT/HCPCS: 36415; 74176; 76856; 80048; 80053; 80076; 81001; 81003; 82272; 82607; 82746; 82947; 83540; 83605; 83690; 83735; 83880; 84443; 84484; 85025; 86140; 86850; 86900; 86901; 86923; 87040; 93005; 99285; J1938; J2470; J2543; P9016

== ENCOUNTER → 2024-12-15 17:38 | Outpatient (BNV) | payer OTHER, SELFPAY | PROVIDERS: Admitting Provider Nurse Practitioner Family; Emergency Provider Student in an Organized Health Care Education/Training Program; PCP Internal Medicine; Visit Provider Internal Medicine | DX: I44.7 Left bundle-branch block, unspecified (principal) | CPT/HCPCS: 93010 ==

== ENCOUNTER → 2024-12-15 22:36 | Outpatient (BNV) | payer OTHER, SELFPAY | PROVIDERS: Admitting Provider Nurse Practitioner Family; Emergency Provider Student in an Organized Health Care Education/Training Program; PCP Internal Medicine; Visit Provider Radiology Neuroradiology | DX: K52.9 Noninfective gastroenteritis and colitis, unspecified (principal) | CPT/HCPCS: 74176 ==

== ENCOUNTER → 2024-12-16 00:51 | Outpatient (BNV) | payer OTHER, SELFPAY | PROVIDERS: Admitting Provider Nurse Practitioner Family; Emergency Provider Student in an Organized Health Care Education/Training Program; PCP Internal Medicine; Visit Provider Nurse Practitioner Family | DX: D64.9 Anemia, unspecified (principal) | CPT/HCPCS: 99223; 99233; 99239; 99499 ==

== ENCOUNTER 2024-12-24 10:12 | Outpatient (AMB) | payer OTHER, SELFPAY ==
[2024-12-24 10:13] VITALS: BP 130/62; PULSE 79; BMI 28.0
--- NOTE | 2024-12-24 10:13 | A.OFFVIS_ITS ---
Vital Signs 12/24/24 10:13 Height 5 ft 2 in Weight 153 lb 0.013 oz BMI 28.0 BP 130/62 Blood Pressure Location Lt brachial Position Sitting Pulse 79 Pulse Source Pulse Oximeter Intake [place] Reasons[place] [facility] [place] Partnership Marketing Manager Required: No Allergies Iodinated Contrast Media (IV CONTRAST) Allergy (Unknown, Verified 12/24/24 10:16) UNKNOWN Medication List - Last Reconciled 12/24/24 by LUIS ENRIQUE PalmC [Adult pull ups As directed] amoxicillin-pot clavulanate 875-125 mg 1 tab PO BID aspirin (Adult Aspirin Regimen) 81 mg PO DAILY atorvastatin 20 mg PO BEDTIME blood pressure monitor (Blood Pressure Kit) As directed blood sugar diagnostic ([employer] Ultra Test strips) test 3 times per day blood-glucose meter (K[employer]uch Ultra2 Meter) test 3 times daily [body wipes As directed] carvedilol 6.25 mg PO BID commode (bedside commode) As directed diaper,brief,adult,disposable As directed size mediun dicyclomine 10 mg PO BID PRN [Disposable bed pads As directed] [Disposable tiesha-pads As directed] dulaglutide (Trulicity) 0.75 mg subcut MO epinephrine (EpiPen 2-Mariano) 0.3 mg (0.3 mL) IM Q10M PRN estradiol 0.01%(0.1mg/gram) 1 appl vaginal DAILY gabapentin 400 mg PO BID insulin glargine U-300 conc (Toujeo SoloStar U-300 Insulin) 20 units (0.0667 mL) subcut DAILY lancets (SendinBlueTouch UltraSoft 2 Lancet) test 3 times per day lidocaine 4% 1 patch topical DAILY PRN losartan 50 mg PO DAILY meclizine (Motion Sickness Relief (meclizine)) 25 mg PO DAILY PRN mirabegron ER (Myrbetriq) 50 mg PO DAILY omeprazole 20 mg PO DAILY@0630 [Raised toilet seat with arms As directed] tramadol 50 mg PO BID PRN HPI H[place] [facility] [place]: Details: Birt is an 89-year-old female past medical history of hypertension, hyperlipidemia, diabetes, chronic kidney disease, left bundle branch block, NSTEMI April 2023 followed by abnormal nuclear stress test and patient declined cardiac catheterization, who was recently [place] [facility] [place] shortness of breath and treated for bronchitis and heart failure with reduced EF. She was not discharged with diuretics. She now presents for follow-up. Today she reports that she has been experiencing frequent issues with dizziness occurring at rest consistent with her vertigo. Her MANAGING MEMBER is present and tells me there waiting on an appointment with ENT. She also tells me that patient will be undergoing surgery to remove bladder sling on January 08. She has a preop appointment at [facility] with anesthesiology tomorrow. She has not been experiencing any chest discomfort at rest or during activity. She tells me her breathing is comfortable. No PND, orthopnea. She does have mild lower leg edema. No presyncope, syncope, falls. She is mostly sedentary and ambulates only short distances with the use of a walker. We previously discussed cardiac catheterization and she did not want to pursue cardiac invasive testing. She lives with her son. MANAGING MEMBER is assisting with Vietnamese translation at their request. [facility] Medical History Anemia Prolapsed hemorrhoids Diabetic nephropathy with proteinuria Hyperlipidemia HTN (hypertension) IBS (irritable bowel syndrome) Prolapsed internal hemorrhoids Chronic kidney disease, stage III (moderate) Obesity (BMI 30-39.9) Mixed hyperlipidemia Hypertensive heart disease Left bundle branch block Bladder prolapse Diabetes mellitus GERD (gastroesophageal reflux disease) Surgical History History of bladder repair surgery History of ERCP History of bilateral cataract extraction History of cholecystectomy History of excision of mass History of colonoscopy History of ankle surgery Family History Father No problems noted. Mother No problems noted. Family/Other Lung cancer Esophagus cancer Other Mental health disorder Substance use disorder Social History Household Members: Children Household Members Other:: children Housing: House Do you presently have visiting nurse or other home services: Yes Alcohol intake: never Patient Tobacco Use Status: Former Tobacco user e-Cigarette/Vaping Use: Never Used Second Hand Smoke Exposure: Yes Advance Directives Date on File: 04/19/23 service: No Current occupational status: disabled Cognitive needs: Yes (cane/walker) Hearing needs: No Vision needs: Yes (glasses) Review of Systems Const All systems reviewed & are unremarkable except as noted in HPI and below Reports weakness ENT Reports dizziness Card Denies chest pain, Denies chest pain at rest, Denies chest pain with activity, Denies rapid heart rate, Reports pedal edema, Denies edema, Reports leg edema, Denies lightheadedness, Denies palpitations, Denies dyspnea, Denies dyspnea on exertion and Denies orthopnea Resp Denies cough, Denies dyspnea and Denies dyspnea on exertion GI Denies hematochezia and Denies change in stool character Musc Reports abnormal gait (ambulates slowly with walker), Denies limited range of motion, Reports muscle cramps, Denies muscle weakness, Denies numbness, Denies radiating pain into limb, Denies stiffness and Denies tingling Neuro Reports abnormal gait (ambulates slowly with walker), Reports dizziness, Denies numbness, Denies tingling and Reports weakness Endo Denies palpitations Physical Exam Vital Signs: Last Vital Signs Pulse 79 12/24/24 10:13 BP 130/62 12/24/24 10:13 BMI result Body Mass Index 28.0 Const Other: Frail elderly female, ambulates slow with walker General: cooperative, comfortable and no acute distress Orientation/consciousness: patient oriented x3 Neck Neck: Yes normal visual inspection and Yes no JVD Resp Effort & Inspection: normal respiratory effort Auscultation: clear to auscultation bilaterally, rales (fine rales 1/3 up bilaterally), no rhonchi and no wheezes Cardio Jugular venous distension: no JVD Rate: regular rate Rhythm: regular rhythm Heart sounds: S1 normal heart sound present, S2 normal heart sound present, no murmurs and no rubs Neuro General: patient oriented x3 Extrem Other: +1 pitting ankle and lower leg edema General: Yes normal to inspection, No no pedal edema and No calf tenderness Psych Appearance: grossly normal Mental Status: mental status grossly normal Speech and movement: Normal speech and movement present Assessment & Plan Assessment & Plan (1) Cardiomyopathy: Code(s): I42.9 - Cardiomyopathy, unspecified Category: Medical Plan: Newer finding of cardiomyopathy on Echocardiogram done on 04/09/2023 showed EF 35-40%, impaired relaxation, mild aortic stenosis. Prior echo done 11/24/2019 had shown EF 55-60%, mild aortic stenosis. She does have a history of chronic left bundle branch block which can contribute to her cardiomyopathy. She has multiple cardiac risk factors including age, hypertension, hyperlipidemia, diabetes, obesity and chronic kidney disease. A pharmacological nuclear stress test was done on 06/12/2023 showing ischemia in the inferior lateral as well as inferior apical wall with fixed defect in the basal to mid inferior wall question severe ischemia versus nontransmural infarct. She declines cardiac catheterization. Last echocardiogram 11/23/2024 showed EF 25-30%, no valve abnormalities, grade 1 diastolic dysfunction, paradoxical septal motion consistent with left bundle branch block. She was treated for decompensated heart failure during October 2024 admission. On exam today she does have rales bilaterally and mild edema. Will give her Lasix to use PRN. Continue aspirin 81 mg daily. Continue atorvastatin with ideal LDL goal less than 70. Continue carvedilol and losartan for neurohormonal modulation. Emergency care if ever needed for symptoms. Cardiology follow-up in 3 months, sooner if needed. (2) Left bundle branch block: Comment: Known left bundle-branch block. Prior workup had shown no evidence of myocardial ischemia. Code(s): I44.7 - Left bundle-branch block, unspecified Category: Medical Plan: History of left bundle branch block. May be contributing to her cardiomyopathy (3) Hypertensive heart disease: Comment: Moderate LVH by echocardiogram, September 2019 consistent with hypertensive heart disease. No evidence of heart failure. Code(s): I11.9 - Hypertensive heart disease without heart failure Category: Medical Plan: Most recent echo showing moderate LVH, EF 25-30 %. Continue with good blood pressure control. (4) HTN (hypertension): Code(s): I10 - Essential (primary) hypertension Category: Medical Plan: Blood pressure goal less than 140/90. Well controlled at present. No med coffey ges made. (5) Abnormal nuclear stress test: Code(s): R94.39 - Abnormal result of other cardiovascular function study Category: Medical Plan: As above. Catheterization offered however declines. Reviewed again today with her. Opts for medical management (6) Hospital discharge follow-up: Code(s): Z09 - Encounter for follow-up examination after completed treatment for conditions other than malignant neoplasm Category: Medical Plan: [facility] [place] reviewed. (7) Heart failure with reduced ejection fraction: Code(s): I50.20 - Unspecified systolic (congestive) heart failure Category: Medical Plan: [facility] [place] with shortness of breath and she was treated for bronchitis and heart failure with reduced EF. This followed an admission for aspiration pneumonia. On exam today she does have some evidence of fluid retention with rales and edema. JVD is negative. Will give her Lasix 20 mg tablets and instructed to take 1 tablet daily x3 days then use PRN for shortness of breath or edema. With her advanced age and chronic kidney disease will use diuretics cautiously. Frequent urination with diuretics reviewed with MANAGING MEMBER. (8) Preoperative cardiovascular examination: Code(s): Z01.810 - Encounter for preprocedural cardiovascular examination Category: Medical Plan: Preop for what is being described as bladder sling removal on 01/08/2025 at [facility]. Will review preop clearance with her primary sprinkler driver and update this note. Plan Time spent on chart review, documentation, interview and assessment Coding Level of Care Code Est Pt Level 4 (87536) Complex EM visit Add On G2211 Diagnoses Cardiomyopathy I42.9 Left bundle branch block I44.7 Hypertensive heart disease I11.9 HTN (hypertension) I10 Abnormal nuclear stress test R94.39 Hospital discharge follow-up Z09 Heart failure with reduced ejection fraction I50.20 Preoperative cardiovascular examination Z01.810 Time Spent (min) 32
== END 2024-12-24 10:54 | disposition home or self-care (01) ==
LOC: HO.HCS 10:12
PROVIDERS: PCP Internal Medicine; Visit Provider Nurse Practitioner Family
DX: I42.9 Cardiomyopathy, unspecified (principal); I44.7 Left bundle-branch block, unspecified; I11.9 Hypertensive heart disease without heart failure; I10 Essential (primary) hypertension; R94.39 Abnormal result of other cardiovascular function study; Z09 Encounter for follow-up examination after completed treatment for conditions other than malignant neoplasm; I50.20 Unspecified systolic (congestive) heart failure; Z01.810 Encounter for preprocedural cardiovascular examination
CPT/HCPCS: 99214; G2211

== ENCOUNTER → 2024-12-24 10:12 | Outpatient (BNVA) | payer OTHER, SELFPAY | PROVIDERS: PCP Internal Medicine; Visit Provider Nurse Practitioner Family | DX: Z01.810 Encounter for preprocedural cardiovascular examination (principal); I10 Essential (primary) hypertension; I44.7 Left bundle-branch block, unspecified; I11.9 Hypertensive heart disease without heart failure; R94.39 Abnormal result of other cardiovascular function study; I50.20 Unspecified systolic (congestive) heart failure | CPT/HCPCS: 99212 ==

== ENCOUNTER 2024-12-30 09:45 | Outpatient (AMB) | payer OTHER, SELFPAY ==
--- NOTE | 2024-12-30 09:51 | A.OFFPC_ITS ---
Vital Signs 12/30/24 09:52 Height 5 ft 2 in Weight 155 lb 6.814 oz BMI 28.4 BP 132/82 Blood Pressure Location Lt brachial Position Sitting Pulse 80 Pulse Source Pulse Oximeter Temp 97.1 F Temp Source Temporal Artery Scan Pulse Oximetry (%) 97 Oxygen Delivery Method Room Air Intake Visit Reasons: TCM [facility] [place] 12/18 Anemia Intake Note: Patient is here for hospital discharge and TCM follow up. Patient was discharged from [facility] on 12/18/24. Tabulating Clerk Required: Yes Tabulating Clerk Language: Marketing Strategist Name: Jose (Granddaughter) Information Interpreted: non-clinical & clinical (pt decline medical record technician prefer granddaughter to translate) Excel Analyst: Present Accompanied by: Granddaughter Allergies Iodinated Contrast Media (IV CONTRAST) Allergy (Unknown, Verified 12/30/24 09:52) UNKNOWN Tobacco use date assessed: 12/30/24 Fall risk assessment: No Falls in past year Last assessed Fall Risk: 12/30/24 Dental Screening Dental Screen Date: 12/11/24 [facility] TCM TCM Information Date of Discharge 12/18/24 Discharged From [facility] Interactive Contact Date (Reference documentation from this date) 01/20/25 HPI Comments History of Present Illness Details Patient presents to the office for a TCM visit. ? Date of admission: 12/16/2024 Date of discharge: 12/18/2024 This is a Follow-up from admission at [facility] HPI: - The patient is an 89-year-old female p resenting with a hospital discharge follow-up for anemia and diverticulitis. - Anemia: The patient was admitted on with a diagnosis of anemia, presenting with lower abdominal pain, vaginal bleeding, and three weeks of melena. - Her hemoglobin was critically low, nec essitating the transfusion of two units of blood. - Diverticulitis: A CT scan of the abdom en revealed diverticulitis, characterized by inflammation of the colon. - The patient was treated with Zosyn and has completed the antibiotic course. - Pericardial effusion: The patient was evaluated by a lollypop machine operator due to fluid around the heart and was prescribed a diuretic. - Follow-up with the lollypop machine operator is chuyita eduled for March. - Bladder sling removal: The patient is scheduled for surgery on January 08 to remove a bladder sling, under the care of Dr. Khan at [facility] Gynecology. Hospital Course/Discharge Summary: Admitted to telemetry where monitor failed to demonstrate an acute dysrhythmia. She was maintained on Zosyn. She had a GI consult by Dr. Doty. Dr. Doty felt given all the clinical findings in the recent exams there was no indication for any acute endoscope. Patient has a history of a right adnexal mass which was verified by ultrasound. This can be addressed as an outpatient with follow up in [facility] as scheduled. Discharged to/Current Location: Home Lives with: Granddaughter Diagnosis: Procedures performed: CT abdomen/pelvis and ultrasound New medications: None Discontinued medications: None Change medications/dosing: Pending labs: CBC Pending diagnostic test: CBC Any Follow-up Labs required? Yes Any Follow-up Diagnostic test required? No How are you feeling? Stable Are you in any pain or discomfort? None Do you have any questions about your condition or discharge instructions? Now Were you able to get your medications filled? Yes Do you have any questions about your medications? No Any referrals required? Yes Were you able to schedule your follow-up appointment? Yes If home health was ordered, have they contact you? Not applicable Any outpatient services, if so, are you scheduled? Yes. Cardiology and Urogynecology at [facility] Are there any additional resources like transportation you might need during her recovery? ? - VNA? No - SUPER[employer]ISH[employer]? No - Meals on wheels? No Educational need/resources: What support system do you have? ReplyForward [facility] Medical History Anemia Prolapsed hemorrhoids Diabetic nephropathy with proteinuria Hyperlipidemia HTN (hypertension) IBS (irritable bowel syndrome) Prolapsed internal hemorrhoids Chronic kidney disease, stage III (moderate) Obesity (BMI 30-39.9) Mixed hyperlipidemia Hypertensive heart disease Left bundle branch block Bladder prolapse Diabetes mellitus GERD (gastroesophageal reflux disease) Surgical History History of bladder repair surgery History of ERCP History of bilateral cataract extraction History of cholecystectomy History of excision of mass History of colonoscopy History of ankle surgery Family History Father No problems noted. Mother No problems noted. Family/Other Lung cancer Esophagus cancer Other Mental health disorder Substance use disorder Social History Household Members: Children Household Members Other:: children Housing: House Do you presently have visiting nurse or other home services: Yes Alcohol intake: never Patient Tobacco Use Status: Former Tobacco user e-Cigarette/Vaping Use: Never Used Second Hand Smoke Exposure: Yes Advance Directives Date on File: 04/19/23 service: No Current occupational status: disabled Cognitive needs: Yes (cane/walker) Hearing needs: No Vision needs: Yes (glasses) Questionnaire Thrive Questionnaire Date Thrive assessed: 12/16/24 MENDEL-7 AMB Questionnaire MENDEL-7 Date MENDEL - 7 assessed: 12/11/24 Source: Developed by Drs. Vu Harris, Huma Roque, Ronak Nichols and colleagues, with an educational yury from [employer]. Physical exam (Primary Care) Vital Signs: Last Vital Signs Temp 97.1 F 12/30/24 09:52 Pulse 80 12/30/24 09:52 BP 132/82 12/30/24 09:52 Pulse Ox 97 12/30/24 09:52 Oxygen Delivery Method Room Air 12/30/24 09:52 BMI result Body Mass Index 28.4 Tobacco/Smoking Status: Tobacco use Status Tobacco use date assessed 12/30/24 12/30/24 09:57 Patient Tobacco Use Status Former Tobacco user 12/30/24 09:57 e-Cigarette/Vaping Use Never Used 12/30/24 09:57 Thrive Assessment: Date of Thrive Assessment Date Thrive assessed 12/16/24 12/30/24 09:57 Const General: cooperative and healthy appearing Nutritional Appearance: well nourished Orientation/consciousness: patient oriented x3 Limitations: no limitations HENMT Head: Yes normal to inspection Eyes General: appearance normal, both eyes and all related structures Neck Neck: Yes normal visual inspection Chest Chest palpation & inspection: normal palpation of entire chest wall Resp Effort & Inspection: normal respiratory effort Neuro General: patient oriented x3 Results AMB Hemoglobin A1c AMB Hemoglobin A1c 6.1 % Last Edit by MIKAELA Hoover on 12/30/24 10:11 Results Reviewed Results Reviewed: Laboratory Last Values Hgb A1c (Clinic) 6.1 % (4.0-6.0) H 12/30/24 10:01 Coding Level of Care Code TCM Mod MDM <= 14 Days Diagnoses Anemia D64.9 Anemia type: unspecified type Assessment & Plan Assessment & Plan (1) Anemia: Code(s): D64.9 - Anemia, unspecified Category: Medical Qualifiers: Anemia type: unspecified type Qualified Code(s): D64.9 - Anemia, unspecified Plan: Repeat blood work to assess current anemia status. - Post-surgery, initiate iron supplementation to address anemia-related dizziness. - Follow-up with lollypop machine operator in March for pericardial effusion management. - Proceed with scheduled bladder sling removal surgery on January 08. 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
[2024-12-30 09:52] VITALS: BP 132/82; PULSE 80; TEMP 36.2; O2SAT 97; BMI 28.4
== END 2024-12-30 10:25 | disposition home or self-care (01) ==
LOC: HO.HMCH 09:46
PROVIDERS: PCP Internal Medicine; Visit Provider Internal Medicine
DX: E11.69 Type 2 diabetes mellitus with other specified complication (principal); Z79.4 Long term (current) use of insulin; D64.9 Anemia, unspecified

== ENCOUNTER → 2024-12-30 09:45 | Outpatient (BNVA) | payer OTHER, SELFPAY | PROVIDERS: PCP Internal Medicine; Visit Provider Internal Medicine | DX: E11.69 Type 2 diabetes mellitus with other specified complication (principal); D64.9 Anemia, unspecified; Z79.4 Long term (current) use of insulin | CPT/HCPCS: 83036; 99495 ==

== ENCOUNTER 2024-12-31 09:32 | Outpatient (REF) | payer OTHER, SELFPAY ==
[2024-12-31 10:29] LABS: Hematocrit 29.4 % (37.0-47.0); Hemoglobin 9.4 g/dl (12.0-16.0); Mean Corpuscular HGB Conc 32.0 g/dl (31.0-35.0); Mean Corpuscular Hemoglobin 27.2 pg (27.0-33.0); Mean Corpuscular Volume 85.0 fL (80.0-98.0); NRBC Abs Auto 0.000 X10*3/uL (0.0-0.012); NRBC Pct Auto 0.0 /100WBC (0.0-0.2); Platelet Count 263 X10*3/uL (160-400); Red Blood Count 3.46 X10*6/uL (4.20-5.50); White Blood Count 5.6 X10*3/uL (4.8-10.8)
--- OUTSIDE RECORDS SUMMARY | 2024-12-31 10:33 | XMS_ITS | Clinical Summary ---
Author Organization [employer] Address [address] [place] [address] Care Team Providers Care Epic Ambulatory Analyst Name Role Phone Unavailable Primary Care Provider [...] to complete this topic Insurance [facility] [facility] [employer] (HMO D-SNP) [employer] [id number]
--- OUTSIDE RECORDS SUMMARY | 2024-12-31 10:33 | XMS_ITS | Continuity of Care Document ---
Author Name [facility], Medical Address [address] [place] [id number] Organization Unknown Address [address] [place] [address] Medications No known medications Problems No known problems
--- OUTSIDE RECORDS SUMMARY | 2024-12-31 10:33 | XMS_ITS | Encounter Summary ---
Author Organization [facility] Address [address] [place] [address] Encounters * CPT with Medical [facility] at [facility] on 2024-12-15 { reasonForRequest : dizzy/BP check , patientReports : Dizziness with positional change , denies :[ Worst Headache of life , New onset of vision loss , Sudden onset -unilateral weakness/gait disturbance , Fall with head strike and altered LOC , New onset of Slurred speech or difficulty finding words", Sudden Mental status changes , Head pain with fever chills and neck pain ,"Seizure activity , Head pain not relieved by medication greater than 8 hours ,"Head pain greater than 8 hours -unrelated to falls or injury , Head pain with nausea vomiting , Sensitive to light ], chiefComplaints : Dizziness, Extremity Swelling , pmh : Coronary Artery Disease, Congestive Heart Failure, Diabetes Mellitus Type 2, Hypertension , allergies : Penicillins , otherAllergies :null, painAssessment : , visitOutcome : , additionalComments : 89 y.o female complains of Dizziness\nPatients daughter making referral\nStates mom has had increased dizziness today\nBP 126/64 BS 112\nPatient has hx of vertigo and takes meclizine for dizziness and took it this morning and it hasn't helped today. Reported only symptom\nof note, she was hospitalized 2-3 weeks ago secondary to esophageal stricture, and aspiration pneumonia. was found to have fluid around her heart and she now has in bilateral lower extremity swellingas well. \nShe is currently not on a diuretic according to daughter and no new medications started.\nD[facility]er requesting [facility] assessment \nI provided information on the mobile health . provider response time and advised the patient and/or caregiver to monitor reported signs and symptoms. I discussed the warning signs of when to seek emergency care. } Dispatched to the call address for the female with dizziness. Pt states she woke up feeling really dizzy. She does have a Hx of vertigo and took her Meclizine earlier but has not had any relief. She states this is a different type of dizziness from her normal vertigo. HOME MISSION WORKER states Pt was in the hospital a few weeks ago and her hemoglobin was 7. Family is unsure what her hemoglobin was when she leftthe facility and is not sure if they ever found the source of the bleed. They advise she had a follow up with her PCP on Saturday but they were dismissive and didn't even recheck her blood work. Pt denies chest pain, diff breathing/sob, n/v/d, cough, fevers or other complaints Pt was found sitting on living room couch, CAOx4, airway open and patent, breathing non labored, able to speak in full sentences, -JVD, -HEENT, skin PWD with good turgor, mucous membranes pink and moist, pupils PERRL, lungs CTA, abd soft non tender/distended, -edema/swelling, afebrile, +CMSx4. Dizziness Pt was assessed. [facility] consulted. Pt advised of work up in ED. Pt agreeable but only if family can drive her (close proximity to ED). Red flags discussed. ALL times are approx. IV_(FLUIDS_AND/OR_MEDICATION), MEDICATION_IM, ORAL_MEDICATION, POC_BLOODWORK, WOUND_CARE, ORTHOSTATIC_VITAL_SIGNS, PO_MEDICATION Written by Medical [facility] on 2024-12-15
== END 2024-12-31 09:33 | disposition home or self-care (01) ==
LOC: HO.LAB 09:32
PROVIDERS: PCP Internal Medicine; Visit Provider Internal Medicine
DX: D64.9 Anemia, unspecified (principal)
CPT/HCPCS: 36415; 85027

== ENCOUNTER 2025-01-07 03:55 | Inpatient (IN) | payer OTHER, SELFPAY ==
[2025-01-07] VITALS (12 sets, daily range): BP systolic 140–181; BP diastolic 56–87; PULSE 71–87; RESP 12–20; TEMP 36.3–36.9; O2SAT 93–98; BMI 29.2; BMI 30.4
--- NOTE | ~2025-01-07 | XR_ITS ---
CLINICAL HISTORY: shortness of breath 1 view chest x-ray Comparison: 09/12/2024, CT chest 11/22/2024 Findings: There is stable cardiomegaly. There are bilateral pulmonary opacities. There is mild prominence of the pulmonary vascularity. There is stable scattered bilateral pulmonary scarring, bulla and mild fibrotic changes There are small bilateral pleural effusions. There is stable left paravertebral, left paratracheal calcification No acute fracture. IMPRESSION: Cardiomegaly and likely pulmonary edema, diffuse bilateral pulmonary opacities secondary to pulmonary edema and/or pneumonia Stable scattered bilateral pulmonary scarring, bulla and mild fibrotic changes Small bilateral pleural effusions Stable left lobe calcified thyroid nodule, there were additional thyroid nodules visualized on CT chest. thyroid ultrasound follow-up recommended This document has been electronically signed by: Vu Valdez MD on 01/07/2025 07:17:17
--- NOTE | ~2025-01-07 | CT_ITS ---
EXAMINATION: CT HEAD WITHOUT CONTRAST (STROKE PROTOCOL) CLINICAL INFORMATION: Stroke protocol. AMS, unresponsive. COMPARISON: CT brain 09/12/2024 TECHNIQUE: Contiguous axial imaging was performed from the skull base to vertex without intravenous administration of contrast. This CT examination was performed using dose optimization techniques as appropriate, variously including the following: *Automated exposure control *Adjustment of mA and/or kV according to patient size (this includes techniques or standardized protocols for targeted exams where dose is matched to indication/reason for exam; i.e. extremities or head) *Use of iterative reconstruction technique FINDINGS: There is no acute intracranial, extracranial bleed, masses or midline shift. There is diffuse periventrical hypodensity in both cerebral hemispheres without mass effect. There is stable. The lateral ventricles are symmetrical in size and configuration with moderate enlargement. There is no acute territorial infarct or shift. No abnormality seen in the posterior fossa. The paranasal sinuses and mastoid air cells are well-aerated. The optic globes, optic nerve and the periorbital soft tissues are normal. CT/CT head for STROKE IMPRESSION: No acute intracranial process seen. Chronic small vessel ischemic changes in both cerebral hemispheres with moderate cerebral volume loss. This critical result was discussed with Dr. Maguire at 3:50 PM on 01/08/2025 by phone. It was ascertained that the content and urgency of the report was understood at the time of direct communication. Electronically signed by: Marck Mccord MD 01/08/2025 03:54 PM EDT
--- NOTE | 2025-01-07 04:09 | ECG_ITS ---
Test Reason : SOB,CHEST TIGHTNESS Blood Pressure : */* mmHG Vent. Rate : 83 BPM Atrial Rate : 83 BPM P-R Int : 166 ms QRS Dur : 150 ms QT Int : 430 ms P-R-T Axes : 55 -10 140 degrees QTcB Int : 505 ms Normal sinus rhythm Left bundle branch block Abnormal ECG When compared to the previous EKG of No significant changes seen Referred By: Eliel Vizcarra Electronically Signed By: LATOYA HERNANDEZ MD
[2025-01-07 05:31] LABS: Resp Syncy Virus RNA Qual PCR NEGATIVE (Negative); SARS COV2 PCR INHOUSE NEGATIVE (Negative)
--- NOTE | 2025-01-07 05:32 | ED.GENADULT ---
HPI - General Adult General Chief complaint: Dyspnea Stated complaint: SoB Time Seen by Provider: 01/07/25 05:32 History of Present Illness ED Provider: Zackery TATE narrative: The the patient is an 89-year-old woman who says that she was doing well yesterday. She went to bed but woke up while in bed acutely short of breath a few hours before coming to the emergency room. She denies any significant cough. No fever. She says that she does not feel well and she feels short of breath. She has been sweaty. No abdominal pain, nausea, vomiting. She feels that the swelling in her legs has gotten worse over the last couple of days. Related Data Home Medications ?Medication ?Instructions ?Recorded ?Confirmed mirabegron 50 mg tablet,extended 50 mg PO DAILY 02/14/22 12/24/24 release 24 hr (Myrbetriq) omeprazole 20 mg capsule,delayed 20 mg PO DAILY@0630 11/09/24 12/24/24 release estradiol 0.01% (0.1 mg/gram) 1 appl vaginal DAILY 12/16/24 12/24/24 vaginal cream lidocaine 4 % topical patch 1 patch topical DAILY PRN Pain 12/16/24 12/24/24 losartan 50 mg tablet 50 mg PO DAILY 12/16/24 12/24/24 Previous Rx's ?Medication ?Instructions ?Recorded epinephrine 0.3 mg/0.3 mL 0.3 mg (0.3 mL) IM Q10M PRN 03/26/20 injection, auto-injector (EpiPen anaphylaxis #1 ea 2-Mariano) commode (bedside commode) #1 ea 06/12/21 blood-glucose meter (OneTouch #1 ea 12/31/22 Ultra2 Meter) lancets 30 gauge (OneTouch #100 ea 12/31/22 UltraSoft 2 Lancet) Raised toilet seat with arms #1 ea 01/01/24 gabapentin 400 mg capsule 400 mg PO BID #180 caps 01/07/24 blood sugar diagnostic (OneTouch #100 ea 01/14/24 Ultra Test strips) Disposable bed pads #3 ea 06/11/24 body wipes #1 ea 06/11/24 diaper,brief,adult,disposable #100 ea 06/11/24 Adult pull ups #240 ea 03/19/25 carvedilol 6.25 mg tablet 6.25 mg PO BID #180 tabs 07/08/24 Disposable tiesha-pads #240 ea 07/17/24 dicyclomine 10 mg capsule 10 mg PO BID PRN abdominal pain 09/12/24 #10 caps aspirin 81 mg tablet,delayed 81 mg PO DAILY #90 tabs 10/12/24 release (Adult Aspirin Regimen) blood pressure monitor (Blood #1 ea 11/06/24 Pressure Kit) insulin glargine U-300 conc 300 20 unit (0.0667 mL) subcut DAILY 11/13/24 unit/mL (1.5 mL) subcutaneous pen #4.5 mL (Toujeo SoloStar U-300 Insulin) atorvastatin 20 mg tablet 20 mg PO BEDTIME #90 tabs 11/17/24 tramadol 50 mg tablet 50 mg PO BID PRN pain #60 tabs 12/14/24 furosemide 20 mg tablet (Lasix) 20 mg PO DAILY PRN Shortness of 12/24/24 breath, leg swelling #30 tabs meclizine 25 mg tablet (Motion 25 mg PO DAILY PRN motion sickness 12/24/24 Sickness Relief (meclizine)) #14 tabs dulaglutide 0.75 mg/0.5 mL 0.75 mg (0.5 mL) subcut QWEEK #2 mL 12/30/24 subcutaneous pen injector (Trulicity) fluconazole 150 mg tablet 150 mg PO Q3D 2 doses #2 tabs 12/30/24 Allergies Allergy/AdvReac Type Severity Reaction Status Date / Time Iodinated Contrast Media (IV Allergy Unknown UNKNOWN Verified 12/30/24 09:52 CONTRAST) Review of Systems Review of Systems: Yes all other systems are reviewed and are negative [facility] Past Medical History Medical History Anemia Prolapsed hemorrhoids Diabetic nephropathy with proteinuria Hyperlipidemia HTN (hypertension) IBS (irritable bowel syndrome) Prolapsed internal hemorrhoids Chronic kidney disease, stage III (moderate) Obesity (BMI 30-39.9) Mixed hyperlipidemia Hypertensive heart disease Left bundle branch block Bladder prolapse Diabetes mellitus GERD (gastroesophageal reflux disease) Surgical History History of bladder repair surgery History of ERCP History of bilateral cataract extraction History of cholecystectomy History of excision of mass History of colonoscopy History of ankle surgery Family History Family History Father No problems noted. Mother No problems noted. Family/Other Lung cancer Esophagus cancer Other Mental health disorder Substance use disorder Social History Social History Household Members: Children Household Members Other:: children Housing: House Do you presently have visiting nurse or other home services: Yes Alcohol intake: never Patient Tobacco Use Status: Former Tobacco user Smoked in Last 30 Days: No e-Cigarette/Vaping Use: Never Used Second Hand Smoke Exposure: Yes Use of substances other than those prescribed or required for medical reasons: No Advance Directives: Yes Advance Directives on File: Yes Advance Directives Date on File: 04/19/23 service: No Current occupational status: disabled Cognitive needs: Yes (cane/walker) Hearing needs: No Vision needs: Yes (glasses) Physical Exam ED Vital Signs: Vital Signs - 24 hr 01/07/25 05:58 01/07/25 06:09 Temperature 97.6 F Pulse Rate 87 Respiratory Rate 16 Blood Pressure 176/76 H 176/76 H Pulse Oximetry 97 Oxygen Delivery Method Room Air BMI result Body Mass Index 29.2 Const Other: The patient is awake and alert. I thought she looked mildly sweaty. She looked somewhat weak and worn out but not in acute respiratory distress. Orientation/consciousness: patient oriented x3 HENMT Other: The face is symmetrical. ?Mucous membranes moist. Eyes Other: Pupils are round equal, conjunctivae are clear, extraocular movements intact Neck Neck: Yes JVD Resp Other: No gross increased work of breathing. Crackles at both bases. Cardio Other: No murmur heard Rate: regular rate Rhythm: regular rhythm Heart sounds: S1 normal heart sound present and S2 normal heart sound present GI Other: Abdomen is soft and nontender Skin Other: Skin was mildly diaphoretic but otherwise unremarkable. Neuro General: patient oriented x3, tone normal, moves all extremities, no focal motor deficits and CN's II-XI intact bilaterally Extrem Other: 1 - 2+ edema of both lower legs. Medications Administered Discontinued Medications Generic Name Dose Route Start Last Admin Trade Name Freq PRN Reason Stop Dose Admin Diazepam 2 mg 01/07/25 06:22 01/07/25 06:26 Diazepam 2 Mg Tablet PO 01/07/25 06:23 2 mg ONCE ONE Administration Furosemide 40 mg 01/07/25 05:59 01/07/25 06:09 Furosemide 40 Mg/4 Ml Vial IVPUSH 01/07/25 06:00 40 mg ONCE ONE Administration Protocol Medical Decision Making Medical Decision Making [facility] Narrative: Is an 89-year-old woman with a history of coronary disease. She had an NSTEMI in April of 2023. She had an abnormal stress test but declined cardiac catheterization. Last echocardiogram was in October of 2024. At that time her ejection fraction was between 25 and 30%. She is currently on diuretics. She is on carvedilol, aspirin, and atorvastatin among other medications. Clinically the patient seemed to have congestive heart failure. She has elevated JVD and crackles on exam. She had no associated chest pain. No associated fever or other infectious symptoms. Chest x-ray is consistent with congestive heart failure. She was given 40 mg of IV furosemide. While on the monitor she was noted to have a run of nonsustained VT, 18 beats altogether. I reviewed the case with the aquaculture worker Dr. Gunn who recommended that the patient be loaded with the amiodarone. The patient will be admitted to the hospitalist service. The admitting hospitalist requested that the patient also receive IV magnesium. I have ordered 2 g of IV magnesium as well. The patient had a robust response to the dose of furosemide. She was looking better and she was feeling better. Lab Data 01/07/25 04:25 01/07/25 04:25 Labs: Lab Results 01/07/25 01/07/25 Range/Units 04:25 06:31 WBC 6.8 (4.8-10.8) X10*3/uL RBC 3.76 L (4.20-5.50) X10*6/uL Hgb 10.4 L (12.0-16.0) g/dl Hct 32.6 L (37.0-47.0) % MCV 86.7 (80.0-98.0) fL MCH 27.7 (27.0-33.0) pg MCHC 31.9 (31.0-35.0) g/dl RDW 14.1 (11.0-16.0) % Plt Count 179 D (160-400) X10*3/uL MPV 11.3 (9.4-12.3) fL Immature Gran % (Auto) 0.3 (0.0-0.4) % Neut % (Auto) 66.5 (45-73) % Lymph % (Auto) 24.6 (20-40) % [place] % (Auto) 6.1 (2-11) % Eos % (Auto) 2.2 (0-4) % Baso % (Auto) 0.3 (0-2) % Lymph # (Auto) 1.7 (1.2-4.9) X10*3/uL [place] # (Auto) 0.4 (0.1-1.2) X10*3/uL Eos # (Auto) 0.2 (0.0-0.4) X10*3/uL Baso # (Auto) 0.0 (0.0-0.2) X10*3/uL Abs Immat Gran (auto) 0.02 (0.00-0.03) X10*3/uL Absolute Neuts (auto) 4.5 (2.0-8.3) x10*3/uL Absolute Nucleated RBC 0.000 (0.0-0.012) X10*3/uL Nucleated RBC % (auto) 0.0 (0.0-0.2) /100WBC Sodium 143 (135-145) mmol/L Potassium 4.4 D (3.3-5.1) mmol/L Chloride 110 H (96-108) mmol/L Carbon Dioxide 23 (22-29) mmol/L Anion Gap 14 (12-20) BUN 10 (9-16) mg/dL Creatinine 0.78 (0.5-1.4) mg/dL Estim Creat Clear Calc TNP Estimated GFR > 60 Random Glucose 131 H (60-115) mg/dL Calcium 8.8 D (8.4-10.2) mg/dL Magnesium 1.7 (1.6-2.6) mg/dL Total Bilirubin 0.4 (0.0-1.0) mg/dL AST 26 (5-31) U/L ALT 10 (0-31) U/L Alkaline Phosphatase 104 (39-117) U/L Troponin I High Sens 233.7 H* D 224.9 H* (<3.5-17.0) ng/L NT-Pro-B Natriuret Pep 10270.7 H (<300) pg/mL Total Protein 7.1 (6.5-8.0) g/dL Albumin 4.1 (3.5-5.0) g/dL Influenza Type A (PCR) NEGATIVE (Negative) Influenza Type B (PCR) NEGATIVE (Negative) RSV RNA Qual (PCR) NEGATIVE (Negative) SARS-CoV-2 RNA (RT-PCR) NEGATIVE (Negative) Critical Care Time Critical Care Time Critical Care Time: Yes Total Critical Care Time: 35 Attestation: The patient was critically ill with a high probability of imminent or life-threatening deterioration. ?I spent greater than 30 minutes of discontinuous time evaluating the patient, delivering critical care at the bedside, discussing evaluating data with consultants. ?Critical care time does not include time spent performing separately billable procedures or teaching. ?Time spent performing critical care with 35 minutes. Discharge Plan Discharge Patient Disposition: Admitted As Inpatient Print Language: Tunisian
[2025-01-07 06:05] LABS: Hematocrit 32.6 % (37.0-47.0); Hemoglobin 10.4 g/dl (12.0-16.0); Imm Gran Abs Auto 0.02 X10*3/uL (0.00-0.03); Imm Gran Pct Auto 0.3 % (0.0-0.4); Lymphocytes Absolute Auto 1.7 X10*3/uL (1.2-4.9); MANUAL DIFF FLAG NO; Mean Corpuscular HGB Conc 31.9 g/dl (31.0-35.0); Mean Corpuscular Hemoglobin 27.7 pg (27.0-33.0); Mean Corpuscular Volume 86.7 fL (80.0-98.0); NRBC Abs Auto 0.000 X10*3/uL (0.0-0.012); NRBC Pct Auto 0.0 /100WBC (0.0-0.2); PLT CLUMP 1; Platelet Count 179 X10*3/uL (160-400); Red Blood Count 3.76 X10*6/uL (4.20-5.50); SCAN SMEAR FLAG 1; White Blood Count 6.8 X10*3/uL (4.8-10.8)
[2025-01-07] MEDS: Furosemide 40 MG/4 ML VIAL IVPUSH ×2 (06:09→18:36)
[2025-01-07 06:18] LABS: Alanine Aminotransferase 10 U/L (0-31); Albumin Level 4.1 g/dL (3.5-5.0); Alkaline Phosphatase 104 U/L (39-117); Anion Gap 14 (12-20); Aspartate Amino Transferase 26 U/L (5-31); Blood Urea Nitrogen 10 mg/dL (9-16); Calcium 8.8 mg/dL (8.4-10.2); Carbon Dioxide 23 mmol/L (22-29); Chloride 110 mmol/L (96-108); Estimated Glomerular Filt Rate > 60; Magnesium 1.7 mg/dL (1.6-2.6); NT Pro B Type Natriuretic Pept 10014.7 pg/mL (<300); Potassium 4.4 mmol/L (3.3-5.1); Sodium 143 mmol/L (135-145); Total Protein 7.1 g/dL (6.5-8.0); Troponin-I High Sensitivity 233.7 ng/L (<3.5-17.0)
--- NOTE | 2025-01-07 06:59 | PC.NURSE ---
PT noted to have 13 beats of vtach. Provider and Charge notified. Pt moved to ED 13.
[2025-01-07 07:15] LABS: Troponin-I High Sensitivity 224.9 ng/L (<3.5-17.0)
[2025-01-07] MEDS: Amiodarone/Dextrose 150 MG/100 ML PLAST..BAG 600 MG IV (08:16)
--- NOTE | 2025-01-07 08:55 | P.HPHOSP_ITS ---
History of Present Illness Date of Service: 01/07/25 Attending physician on admission: Cherrie Ching Chief Complaint: SOB This is an 89-year-old female with a history of HFrEF, LBBB, DM who presents to the emergency department with shortness of breath. Yesterday afternoon patient went grocery shopping and when she was walking up the stairs she reported shortness of breath. This morning she woke up feeling short of breath and she was brought to the hospital for evaluation. In the emergency department her chest x-ray showed pulmonary edema with bilateral pleural effusions. Lab work was significant for pro-BNP of 10,000. Troponin was elevated but remained flat at 233, 224. Patient reported lower extremity edema. She denies any chest pain. Patient was seen in the Cardiology Clinic on December 24 and was noted to have signs of fluid overload and she was prescribed lasix, but she hasn't taken it because she doesn't like that it makes her urinate frequently. While in the emergency department she was noted to have 18 beat run of ventricular tachycardia during which time it does not appear that the patient was symptomatic. The emergency room provider discussed the case with Cardiology who recommended loading with amiodarone. She also received a dose of IV lasix. Magnesium was 1.7, she was treated with 2gm of IV magnesium. She will be admitted for further mangagment of acute CHF and NSVT. Review of Systems 2 Review of Systems: Yes all other systems are reviewed and are negative Constitutional: Constitutional: Denies chills and Denies fever(s) ENT: Denies dizziness Cardiovascular: Cardiovascular: Reports dyspnea and Reports dyspnea on exertion Respiratory: Respiratory: Reports dyspnea and Reports dyspnea on exertion Neurologic: Denies dizziness [facility] Medical History Anemia Prolapsed hemorrhoids Diabetic nephropathy with proteinuria Hyperlipidemia HTN (hypertension) IBS (irritable bowel syndrome) Prolapsed internal hemorrhoids Chronic kidney disease, stage III (moderate) Obesity (BMI 30-39.9) Mixed hyperlipidemia Hypertensive heart disease Left bundle branch block Bladder prolapse Diabetes mellitus GERD (gastroesophageal reflux disease) Family History Father No problems noted. Mother No problems noted. Family/Other Lung cancer Esophagus cancer Other Mental health disorder Substance use disorder Surgical History History of bladder repair surgery History of ERCP History of bilateral cataract extraction History of cholecystectomy History of excision of mass History of colonoscopy History of ankle surgery Social History Household Members: Children Household Members Other:: children Housing: House Do you presently have visiting nurse or other home services: Yes Alcohol intake: never Patient Tobacco Use Status: Former Tobacco user Smoked in Last 30 Days: No e-Cigarette/Vaping Use: Never Used Second Hand Smoke Exposure: Yes Use of substances other than those prescribed or required for medical reasons: No Advance Directives: Yes Advance Directives on File: Yes Advance Directives Date on File: 04/19/23 service: No Current occupational status: disabled Cognitive needs: Yes (cane/walker) Hearing needs: No Vision needs: Yes (glasses) Meds Allergies Allergy/AdvReac Type Severity Reaction Status Date / Time Iodinated Contrast Media (IV Allergy Unknown UNKNOWN Verified 12/30/24 09:52 CONTRAST) Active Medications: Current Medications Amiodarone HCl 900 mg/ Sodium (Chloride) 518 mls @ 0 mls/hr IVCONT .Q0M [facility]; Protocol Last Admin: 01/07/25 08:44 Dose: 1 mg/min, 34.53 mls/hr Home Medications ?Medication ?Instructions ?Recorded ?Confirmed ?Last Taken ?Type mirabegron 50 mg tablet,extended 50 mg PO DAILY 01/07/25 01/06/25 History release 24 hr (Myrbetriq) omeprazole 20 mg capsule,delayed 20 mg PO DAILY@0630 0 11/09/24 01/07/25 01/06/25 History release estradiol 0.01% (0.1 mg/gram) 1 appl vaginal BEDTIME 0 12/16/24 01/07/25 01/06/25 History vaginal cream lidocaine 4 % topical patch 1 patch topical DAILY PRN Pain 12/16/24 01/07/25 Unknown History losartan 50 mg tablet 50 mg PO DAILY 12/16/24 10/0 12/2401/06/25 History dulaglutide 0.75 mg/0.5 mL 0.75 mg subcut MO 01/07/25 01/07/25 01/04/25 History subcutaneous pen injector (Trulicity) Physical Exam 2 Vital Signs and Narrative: Vital Signs: Last Vital Signs Temp 97.6 F 01/07/25 05:58 Pulse 81 01/07/25 08:16 Resp 16 01/07/25 08:16 BP 181/68 H 01/07/25 08:16 Pulse Ox 97 01/07/25 08:16 O2 Del Method Room Air 01/07/25 08:16 BMI result Body Mass Index 29.2 Const: Other: Elderly female resting in bed, appears tired but comfortable at this time. General: alert and awake Nutritional Appearance: average body habitus Orientation/consciousness: patient oriented x3 Resp: Effort & Inspection: able to speak in complete sentences A uscultation: rales (bibasilar) Cardio: Jugular venous distension: JVD GI: Inspection: No distended Palpation (GI): Soft to palpation and nontender Neuro: General: patient oriented x3, moves all extremities and CN's II-XI intact bilaterally Extrem: Other: trace LE edema (Right LE chronically large then left as per family) Results Labs 01/07/25 04:25 01/07/25 04:25 Labs: Laboratory Results - last 24 hr 01/07/25 01/07/25 04:25 06:31 MCV 86.7 MCH 27.7 MCHC 31.9 RDW 14.1 Plt Count 179 D MPV 11.3 Immature Gran % (Auto) 0.3 Neut % (Auto) 66.5 Lymph % (Auto) 24.6 [place] % (Auto) 6.1 Eos % (Auto) 2.2 Baso % (Auto) 0.3 Lymph # (Auto) 1.7 [place] # (Auto) 0.4 Eos # (Auto) 0.2 Baso # (Auto) 0.0 Abs Immat Gran (auto) 0.02 Absolute Neuts (auto) 4.5 Absolute Nucleated RBC 0.000 Nucleated RBC % (auto) 0.0 Anion Gap 14 Estim Creat Clear Calc TNP Estimated GFR > 60 Random Glucose 131 H Calcium 8.8 D Magnesium 1.7 Total Bilirubin 0.4 AST 26 ALT 10 Alkaline Phosphatase 104 Troponin I High Sens 233.7 H* D 224.9 H* NT-Pro-B Natriuret Pep 24319.7 H Total Protein 7.1 Albumin 4.1 Influenza Type A (PCR) NEGATIVE Influenza Type B (PCR) NEGATIVE RSV RNA Qual (PCR) NEGATIVE SARS-CoV-2 RNA (RT-PCR) NEGATIVE Assessment and Plan (1) Decompensated heart failure with reduced ejection fraction (HFrEF): Status: Acute (2) Non-sustained ventricular tachycardia: Status: Acute Plan This is an 89 year old female with history of PMH HFrEF 25%, PNA, HLD, IBS-D, CKD 3b, GERD, chronic LBBB, DM recent admission for diverticulitis and anemia who presents to the ED with shortness of breath found to have CHF and an episode of NSVT acute on chronic HFrEF not taking diuretics b/c it makes her urinate frequently +sob, GRIFFIN, +JVD, leg edema; b/l plural effusions substantial UO after dose of IV lasix in ED continue IV lasix 40 bid Monitor I's and o's closely to assess diuretic response cardiology following NSVT resume coreg received IV bolus and then was started on amio drip in ED - continue amiodorone drip follow lytes with goal to keep k >4 and mag >2 tele monitoring cardiology following NSTEMI, type 2 due to decompensated CHF, NSVT and probable underlying CAD has declined cardiac cath in the past, long discussion in ED with cardiology and family - she will consider pursuing cardiac cath continue baseline asa, statin and BB trops flat tele monitoring cardiology following DM SSI, POCs, ADA diet trulicity NF, will hold will convert toujeo to Lantus at reduced dose, titrate as needed CKD3B renal function at baseline chronic anemia H/H at baseline Thyroid nodule seen on imaging recommend outpatient thyroid US code status - DNR/DNI, discussed with pt and family at bedside and MOLST filled out. The severity of ventricular tachycardia was discussed with family. Quality Stroke Does the patient have a stroke diagnosis?: No VTE Prior VTE?: No VTE Risk Level:: Medical - moderate - high VTE Device Contraindication: N/A - Device Ordered VTE Drug Contraindication: N/A - Med Ordered
--- NOTE | 2025-01-07 09:15 | PC.NURSE ---
Jesus gtt per MAY. Additonal IV placed to Jaz FA.
[2025-01-07] MEDS: Magnesium Sulfate/H2O 2 GM/50 ML PIGGYBACK IV (09:22)
--- NOTE | 2025-01-07 09:27 | P.CONCA_ITS ---
History of Present Illness History of Present Illness Date of Service: 01/07/25 Requesting physician: Eliel Vizcarra Consult reason: congestive heart failure and other (Nonsustained ventricular tachycardia) Chief complaint: NSVT, CHF Narrative: I was consulted to see Mercedez in cardiology consultation today for decompensated congestive heart failure. Patient while being monitored was noted to have brief run of fast monomorphic nonsustained ventricular tachycardia up to 20 beats. Patient had no symptoms during that time. History was obtained with help of coverstitch machine operator at bedside. Reviewing the chart it appears that patient has had progressively reducing severe LV systolic dysfunction and was recently admitted with GI bleed and subsequently prior to that was admitted with decompensated congestive heart failure. Echocardiogram done November 23 had shown worsening LV EF of 25-30% but no significant wall motion abnormality noted at that time. Myocardial perfusion imaging from May of 2023 shows ischemia in the inferoapical inferolateral and possible inferior wall. Patient has never undergone cardiac catheterization. Patient has history of chronic anemia of unclear etiology. Also mentioned to have chronic kidney disease although on admission her creatinine is 0.78 which is within normal limits. She says she is doing well in his usual state of health yesterday went to bed and at nighttime suddenly woke up with significant shortness of breath. This is a very sudden- onset shortness of breath. She also complains of some leg edema over the last few weeks but has had no progressive shortness of breath. She also had precordial burning in his chest. She came to the hospital was noted to be in pulmonary edema with BNP in the 10,000 range. She has been admitted for diuresis however while being monitored as mentioned she developed wide complex tachycardia consistent with nonsustained ventricular tachycardia which is monomorphic. Cardiology consult was sought for management. Patient says breathing has improved compared to when she presented to the hospital as well as her burning in his chest is improved. She says she takes all her medications at home which include carvedilol and losartan although she is not on any diuretic regimen at home except for PRN Lasix that was started on last cardiology visit but she is currently not taking it. She denies any palpitations, lightheadedness, syncope at home. No exertional chest discomfort. Lives with the son and grandson. Review of Systems 2 Constitutional: Constitutional: Reports no additional constitutional complaints Eyes: Eyes: Reports no additional eye complaints Cardiovascular: Cardiovascular: Reports chest pain at rest, Denies syncope, Reports leg edema, Denies lightheadedness, Denies Loss of Consciousness, Denies palpitations, Reports dyspnea and Reports orthopnea Respiratory: Respiratory: Denies no additional respiratory complaints, Reports dyspnea and Denies wheezing Gastrointestinal: Gastrointestinal: Denies no additional gastrointestinal complaints Musculoskeletal: Musculoskeletal: Denies no additional musculoskeletal complaints Integumentary/Breasts: Skin/Breast: Denies system reviewed and no additional complaints, except as docu Neurologic: Denies system reviewed and no additional complaints, except as documented and Denies syncope Psychiatric: Psychiatric: Denies no additional psychiatric complaints Endocrine: Endocrine: Denies no additional endocrine complaints and Denies palpitations Allergic/Immunologic: Allergic/Immunologic: Denies wheezing PMFSH Past Medical History Medical History Anemia Prolapsed hemorrhoids Diabetic nephropathy with proteinuria Hyperlipidemia HTN (hypertension) IBS (irritable bowel syndrome) Prolapsed internal hemorrhoids Chronic kidney disease, stage III (moderate) Obesity (BMI 30-39.9) Mixed hyperlipidemia Hypertensive heart disease Left bundle branch block Bladder prolapse Diabetes mellitus GERD (gastroesophageal reflux disease) Family History Family History Father No problems noted. Mother No problems noted. Family/Other Lung cancer Esophagus cancer Other Mental health disorder Substance use disorder Surgical History Surgical History History of bladder repair surgery History of ERCP History of bilateral cataract extraction History of cholecystectomy History of excision of mass History of colonoscopy History of ankle surgery Social History Social History Household Members: Children Household Members Other:: children Housing: House Do you presently have visiting nurse or other home services: Yes Alcohol intake: never Patient Tobacco Use Status: Former Tobacco user Smoked in Last 30 Days: No e-Cigarette/Vaping Use: Never Used Second Hand Smoke Exposure: Yes Use of substances other than those prescribed or required for medical reasons: No Advance Directives: Yes Advance Directives on File: Yes Advance Directives Date on File: 04/19/23 service: No Current occupational status: disabled Cognitive needs: Yes (cane/walker) Hearing needs: No Vision needs: Yes (glasses) Meds Allergies Allergy/AdvReac Type Severity Reaction Status Date / Time Iodinated Contrast Media (IV Allergy Unknown UNKNOWN Verified 12/30/24 09:52 CONTRAST) Active Medications: Current Medications Acetaminophen (Acetaminophen 325 Mg Tablet) 650 mg PO Q6H PRN PRN Reason: Pain, Mild 1-3,fever,headache Calcium Carbonate (Calcium Carbonate 750 Mg Tab.Chew) 750 mg PO Q4H PRN PRN Reason: Heartburn Dextrose (Dextrose 50 % 25 Gm/50 Ml Syringe) 25 gm IVPUSH Q15M PRN; Protocol PRN Reason: per Hypoglycemia Standing Ord. Glucose (Glucose Gel 15 Gm Gel..Gram.) 15 gm PO Q15M PRN; Protocol PRN Reason: per Hypoglycemia Standing Ord. Heparin Sodium (Porcine) (Heparin Sodium,Porcine 5,000 Unit/Ml Vial) 5,000 unit SUBCUT Q12H [facility] Amiodarone HCl 900 mg/ Sodium (Chloride) 518 mls @ 0 mls/hr IVCONT .Q0M [facility]; Protocol Last Admin: 01/07/25 08:44 Dose: 1 mg/min, 34.53 mls/hr Insulin Human Lispro (Insulin Lispro 100 Unit/Ml 3 Ml Vial) 0 unit SUBCUT QIDACHS [facility]; Protocol Magnesium Hydroxide (Milk Of Magnesia 30 Ml Oral.Susp) 30 ml PO DAILY PRN PRN Reason: Constipation Melatonin (Melatonin 3 Mg Tablet) 6 mg PO BEDTIME PRN PRN Reason: Insomnia Sodium Chloride (0.9 % Sodium Chloride Flush 3 Ml Syringe) 3 [facility] Medications ?Medication ?Instructions ?Recorded ?Confirmed ?Last Taken ?Type mirabegron 50 mg tablet,extended 50 mg PO DAILY 12/24/24 11/07/24 History release 24 hr (Myrbetriq) omeprazole 20 mg capsule,delayed 20 mg PO DAILY@0630 0 11/09/24 12/24/24 11/07/24 History release estradiol 0.01% (0.1 mg/gram) 1 appl vaginal DAILY 12/24/24 Unknown History vaginal cream lidocaine 4 % topical patch 1 patch topical DAILY PRN Pain 12/16/24 12/24/24 Unknown History losartan 50 mg tablet 50 mg PO DAILY 12/16/24 0908/23 Unknown History Physical Exam 2 Vital Signs: Vital Signs: Last Vital Signs Temp 97.6 F 01/07/25 05:58 Pulse 77 01/07/25 09:23 Resp 18 01/07/25 09:23 BP 162/73 H 01/07/25 09:23 Pulse Ox 97 01/07/25 09:23 O2 Del Method Room Air 01/07/25 09:23 BMI result Body Mass Index 29.2 Const: General: cooperative, comfortable, alert and awake Nutritional Appearance: overweight Orientation/consciousness: patient oriented x3 HEENT: Head: Yes normocephalic and Yes atraumatic Neck: Neck: Yes trachea midline, Yes supple and Yes JVD Resp: Effort & Inspection: normal respiratory effort Auscultation: rales bilateral Cardio: Jugular venous distension: JVD Rate: regular rate Rhythm: r egular rhythm Heart sounds: S1 normal heart sound present, S2 normal heart sound present, no click, Gallop heart sound present S3 gallop and Murmur heart sound present systolic early Skin: General skin exam: no rashes or lesions noted Neuro: General: patient oriented x3 and no focal motor deficits Extrem: General: Yes no clubbing, cyanosis or edema Objective Labs and Meds 01/07/25 04:25 01/07/25 04:25 Lab results: Laboratory Results - last 24 hr 01/07/25 01/07/25 04:25 06:31 WBC 6.8 RBC 3.76 L Hgb 10.4 L Hct 32.6 L MCV 86.7 MCH 27.7 MCHC 31.9 RDW 14.1 Plt Count 179 D MPV 11.3 Immature Gran % (Auto) 0.3 Neut % (Auto) 66.5 Lymph % (Auto) 24.6 [facility] % (Auto) 6.1 Eos % (Auto) 2.2 Baso % (Auto) 0.3 Lymph # (Auto) 1.7 [facility] # (Auto) 0.4 Eos # (Auto) 0.2 Baso # (Auto) 0.0 Abs Immat Gran (auto) 0.02 Absolute Neuts (auto) 4.5 Absolute Nucleated RBC 0.000 Nucleated RBC % (auto) 0.0 Sodium 143 Potassium 4.4 D Chloride 110 H Carbon Dioxide 23 Anion Gap 14 BUN 10 Creatinine 0.78 Estim Creat Clear Calc TNP Estimated GFR > 60 Random Glucose 131 H Calcium 8.8 D Magnesium 1.7 Total Bilirubin 0.4 AST 26 ALT 10 Alkaline Phosphatase 104 Troponin I High Sens 233.7 H* D 224.9 H* NT-Pro-B Natriuret Pep 64095.7 H Total Protein 7.1 Albumin 4.1 Influenza Type A (PCR) NEGATIVE Influenza Type B (PCR) NEGATIVE RSV RNA Qual (PCR) NEGATIVE SARS-CoV-2 RNA (RT-PCR) NEGATIVE Assessment and Plan (1) Decompensated heart failure with reduced ejection fraction (HFrEF): Status: Acute Decompensated systolic heart failure in this elderly woman with sudden-onset highly suggestive of ischemic heart failure. Patient has high likelihood of underlying coronary artery disease which has not been investigated in the past. That has question of being offered a cardiac catheterization in the past and patient refusing it although she is currently not opposed to it. Will have to see how she does given her advanced age and his multiple comorbidities will have to discuss this with her and her family including her healthcare proxy. For now I would continue with IV diuresis with Lasix 40 mg IV push b.i.d.. Strict intake and output chart needs to be pursued. Continue carvedilol therapy and do not have any break in his therapy. I would switch losartan to Entresto therapy. Also add Jardiance 10 mg to her regimen. Add spironolactone 25 mg to her regimen. Follow renal function as well as electrolytes. Will have an ongoing discussion about cardiac catheterization given her abnormal stress test in the past and gradually progressive systolic dysfunction as well as ventricular arrhythmias. (2) Non-sustained ventricular tachycardia: Status: Acute Nonsustained ventricular tachycardia, monomorphic. This is not surprising given her underlying significant cardiovascular issues also possible significant coronary artery disease. At this point time I would continue with IV amiodarone drip for now. Full disclosure cardiac monitoring. Continue monitor electrolytes and replace as needed. Will follow with you Procedures Date of Service Date of Service: 01/07/25
--- NOTE | 2025-01-07 11:38 | PHA.MEDREC ---
Addendum entered by Shade Avila PharmD 01/07/25 12:05: reviewed Original Note: Pharmacy Consult ? Medication Reconciliation Pharmacy has completed the medication reconciliation. Spoke with pt and and family and they were poor historians with pt medications. Pt states she has a PCP (Connie [phone]) and she knows pt meds. Spoke with Vilma over the phone and she confirmed the pt medications; confirmed pt pt takes Trulicity on Mondays and took it last Thursday 01/04, pt never started Fluconazole and pt injects 2- units of Toujeo daily.
[2025-01-07 13:05] LABS: Glucose, Whole Blood 127 mg/dL (60-115)
--- NOTE | 2025-01-07 15:25 | HO.NURTONUR ---
Brit 89 yo female, DNR/DNI with contrast allergy came to ED for c/o SOB. Pt able to maintain O2 sat >90 on room air. CXR showed pulmonary edema and bilateral pleural effusions. BNP elevated over 10,00 and troponins elevated 233 and 224. Pt reports not taking lasix at home, given dose in ED. Pt voiding large amounts of CYU via purewick. While in ED pt noted to have approx 19 beat run of v-tach. Amio gtt per MAY. Pt is alert and oriented #20 to L AC #22 R FA incontinent of urine tolerating diet, no n/v takes pills whole with water
[2025-01-07 18:36] LABS: Glucose, Whole Blood 158 mg/dL (60-115)
--- NOTE | 2025-01-07 19:26 | PC.NURSE ---
Took over care Miya pt with family at bedside no sign, sign of distress.
[2025-01-07 19:34] LABS: Glucose, Whole Blood 164 mg/dL (60-115)
--- NOTE | 2025-01-07 20:08 | PC.NURSE ---
pt assisted to bed mccarthy, family at the bedside assisting with care.
--- NOTE | 2025-01-07 20:33 | PC.NURSE ---
transported pt to floor with transport Malcolm.
[2025-01-07 20:51] LABS: Glucose, Whole Blood 171 mg/dL (60-115)
[2025-01-08 03:04] VITALS: BP 155/67; PULSE 72; RESP 18; TEMP 36.7; O2SAT 95
[2025-01-08 06:52] LABS: Hematocrit 29.7 % (37.0-47.0); Hemoglobin 9.2 g/dl (12.0-16.0); Mean Corpuscular HGB Conc 31.0 g/dl (31.0-35.0); Mean Corpuscular Hemoglobin 26.7 pg (27.0-33.0); Mean Corpuscular Volume 86.1 fL (80.0-98.0); NRBC Abs Auto 0.000 X10*3/uL (0.0-0.012); NRBC Pct Auto 0.0 /100WBC (0.0-0.2); Platelet Count 216 X10*3/uL (160-400); Red Blood Count 3.45 X10*6/uL (4.20-5.50); White Blood Count 5.5 X10*3/uL (4.8-10.8)
[2025-01-08 07:24] LABS: Blood Urea Nitrogen 11 mg/dL (9-16); Calcium 8.4 mg/dL (8.4-10.2); Creatinine Clr Calc Pharmacy 42.4; Estimated Glomerular Filt Rate > 60; Magnesium 1.6 mg/dL (1.6-2.6)
[2025-01-08 07:39] LABS: Anion Gap 11 (12-20); Carbon Dioxide 28 mmol/L (22-29); Chloride 106 mmol/L (96-108); Potassium 3.5 mmol/L (3.3-5.1); Sodium 141 mmol/L (135-145)
--- NOTE | 2025-01-08 07:46 | HO.PM.IMPN ---
Subjective Subjective Date of Service: 01/08/25 Interval History: f/u on heart failuy and ventricular arrythmia doing better, no sob, no arrythmia vitals stable. Physical Exam Vital Signs: Vital Signs: Last Vital Signs Temp 98.1 F 01/08/25 03:04 Pulse 72 01/08/25 03:04 Resp 18 01/08/25 03:04 BP 155/67 H 01/08/25 03:04 Pulse Ox 95 01/08/25 03:04 O2 Del Method Room Air 01/08/25 03:04 BMI result Body Mass Index 30.4 Const: Other: Elderly female lying in bed in no distress Neck supple, no JVD Regular rate and rhythm, S1-S2 heard Bilateral crackles present without wheezing Abdomen soft nontender, no guarding, no rigidity Patient is awake, alert and oriented x3 ; no focal motor deficit Psych: Normal mood No pedal edema Objective Data Active Medications Acetaminophen (Acetaminophen 325 Mg Tablet) 650 mg PO Q6H PRN PRN Reason: Pain, Mild 1-3,fever,headache Aspirin (Aspirin Enteric Coated 81 Mg Tablet.Dr) 81 mg PO DAILY [facility] Atorvastatin Calcium (Atorvastatin Calcium 20 Mg Tablet) 20 mg PO BEDTIME [facility] Last Admin: 01/07/25 21:44 Dose: 20 mg Documented By: ÁNGEL Calcium Carbonate (Calcium Carbonate 750 Mg Tab.Chew) 750 mg PO Q4H PRN PRN Reason: Heartburn Carvedilol (Carvedilol 6.25 Mg Tablet) 6.25 mg PO BID [facility]; Protocol Last Admin: 01/07/25 21:45 Dose: 6.25 mg Documented By: ÁNGEL Dextrose (Dextrose 50 % 25 Gm/50 Ml Syringe) 25 gm IVPUSH Q15M PRN; Protocol PRN Reason: per Hypoglycemia Standing Ord. Dicyclomine HCl (Dicyclomine Hcl 10 Mg Capsule) 10 mg PO BID PRN PRN Reason: abdominal pain Furosemide (Furosemide 40 Mg/4 Ml Vial) 40 mg IVPUSH BID@0900,1800 [facility]; Protocol Last Admin: 01/07/25 18:36 Dose: 40 mg Documented By: PIETRO Gabapentin (Gabapentin 400 Mg Capsule) 400 mg PO BID [facility] Last Admin: 01/07/25 21:45 Dose: 400 mg Documented By: ÁNGEL Glucose (Glucose Gel 15 Gm Gel..Gram.) 15 gm PO Q15M PRN; Protocol PRN Reason: per Hypoglycemia Standing Ord. Heparin Sodium (Porcine) (Heparin Sodium,Porcine 5,000 Unit/Ml Vial) 5,000 unit SUBCUT Q12H [facility] Last Admin: 01/07/25 21:44 Dose: 5,000 unit Documented By: ÁNGEL Amiodarone HCl 900 mg/ Sodium (Chloride) 518 mls @ 0 mls/hr IVCONT .Q0M [facility]; Protocol Last Infusion: 01/07/25 15:18 Dose: 0.5 mg/min, 17.27 mls/hr Documented By: PIETRO Insulin Glargine (Insulin Glargine,Hum.Rec.Anlog 100 Unit/Ml 10 Ml Vial) 10 unit SUBCUT DAILY [facility] Insulin Human Lispro (Insulin Lispro 100 Unit/Ml 3 Ml Vial) 0 unit SUBCUT QIDACHS [facility]; Protocol Last Admin: 01/08/25 07:37 Dose: Not Given Documented By: LINDSEY Non-Admin Reason: No Insulin Coverage Lidocaine (Lidocaine 4 % Patch Adh..Patch) 1 patch TRANSDERMA DAILY [facility]; Protocol Magnesium Hydroxide (Milk Of Magnesia 30 Ml Oral.Susp) 30 ml PO DAILY PRN PRN Reason: Constipation Melatonin (Melatonin 3 Mg Tablet) 6 mg PO BEDTIME PRN PRN Reason: Insomnia Last Admin: 01/07/25 21:44 Dose: 6 mg Documented By: ÁNGEL Mirabegron (Mirabegron 50 Mg Tab.Er.24h) 50 mg PO DAILY [facility] Omeprazole (Omeprazole 20 Mg Capsule.) 20 mg PO DAILY@0630 [facility] Last Admin: 01/08/25 05:59 Dose: 20 mg Documented By: ÁNGEL Sodium Chloride (0.9 % Sodium Chloride Flush 3 Ml Syringe) 3 ml IVFLUSH QSHIFT [facility] Last Admin: 01/08/25 01:22 Dose: Not Given Documented By: ÁNGEL Non-Admin Reason: IV Running Tramadol HCl (Tramadol Hcl 50 Mg Tablet) 50 mg PO BID PRN PRN Reason: Pain, Moderate(Pain Scale 4-6) Labs 01/08/25 06:31 01/08/25 06:31 Labs: Laboratory Results - last 24 hr 1001/07/25 01/07/25 12:59 18:29 19:30 MCV MCH MCHC RDW Plt Count MPV Absolute Nucleated RBC Nucleated RBC % (auto) Anion Gap Estim Creat Clear Calc Estimated GFR POC Glucose 127 H 158 H 164 H Random Glucose Calcium Magnesium 01/07/25 01/08/25 20:44 06:31 MCV 86.1 MCH 26.7 L MCHC 31.0 RDW 14.0 Plt Count 216 MPV 10.3 Absolute Nucleated RBC 0.000 Nucleated RBC % (auto) 0.0 Anion Gap 11 L Estim Creat Clear Calc 42.4 Estimated GFR > 60 POC Glucose 171 H Random Glucose 120 H Calcium 8.4 Magnesium 1.6 Assessment and Plan (1) Heart failure with reduced ejection fraction: Status: Acute (2) Ventricular tachyarrhythmia: Status: Acute Plan This is an 89 year old female with history of PMH HFrEF 25%, PNA, HLD, IBS-D, CKD 3b, GERD, chronic LBBB, DM recent admission for diverticulitis and anemia who presents to the ED with shortness of breath found to have CHF and an episode of NSVT acute on chronic HFrEF not taking diuretics b/c it makes her urinate frequently +sob, GRIFFIN, +JVD, leg edema; b/l plural effusions continue IV lasix 40 bid, change to PO today Monitor I's and o's closely to assess diuretic response cardiology following Monitor electrolytes NSVT resume coreg received IV bolus and then was started on amio drip in ED - continue amiodorone drip and switch to PO today 400 mg bid follow lytes with goal to keep k >4 and mag >2 tele monitoring cardiology following NSTEMI, type 2 due to decompensated CHF, NSVT and probable underlying CAD has declined cardiac cath in the past, long discussion in ED with cardiology and family - she will consider pursuing cardiac cath continue baseline asa, statin and BB trops flat tele monitoring cardiology following DM SSI, POCs, ADA diet trulicity NF, will hold jardiance 10 added will convert toujeo to Lantus at reduced dose, titrate as needed CKD3B renal function at baseline chronic anemia H/H at baseline Thyroid nodule seen on imaging recommend outpatient thyroid US code status - DNR/DNI, discussed with pt and family at bedside and MOLST filled out. The severity of ventricular tachycardia was discussed with family. PT eval, likeoly home tomorrow Quality Stroke Does the patient have a stroke diagnosis?: No VTE Prior VTE?: No VTE Risk Level:: Medical - moderate - high VTE Device Contraindication: N/A - Device Ordered VTE Drug Contraindication: N/A - Med Ordered
[2025-01-08 08:00] VITALS: BP 143/63; PULSE 75; RESP 17; TEMP 36.6; O2SAT 96
[2025-01-08 08:21] LABS: Glucose, Whole Blood 110 mg/dL (60-115)
[2025-01-08] MEDS: Potassium Chloride Packet 20 MEQ PACKET PO (08:38)
[2025-01-08] MEDS: Aspirin Enteric Coated 81 MG TABLET.DR PO (08:38)
[2025-01-08] MEDS: Mirabegron 50 MG TAB.ER.24H PO (08:40)
[2025-01-08] MEDS: Furosemide 40 MG/4 ML VIAL IVPUSH (08:55)
[2025-01-08] MEDS: Insulin Glargine,Hum.rec.anlog 100 UNIT/ML 10 ML VIAL 10 UNIT SUBCUT (08:57)
--- NOTE | 2025-01-08 09:42 | MHC.CM.PN ---
Addendum entered by Rajani Chavez 01/08/25 09:50: PCP is Dr. Deras. Original Note: CM met with Patient, her Daughter and her Son-in-Law at bedside, with the assist of a Metal Temperer, and addressed IMM with Patient (original was given to her and a copy has been placed on the chart). Patient lives in a house with her Son and adult Grandson and she has [employer] services Q[employer] and a large involved family(she is never alone). Home/resume said services is Patient's goal and CM has initiated and will follow for dc planning. PCP is unknown and Daughter/HCP/Fabienne will transport to home at dc.
--- NOTE | 2025-01-08 11:24 | PM.PNCARD ---
Subjective Subjective Date of Service: 01/08/25 Principal diagnosis: Decompensated heart failure and ventricular tachycardia Interval history: No overnight arrhythmias on amiodarone drip. Patient says she feels a lot better. Her breathing has improved. Renal function has remained stable. Overall diuresis has been tepid. No chest pain. Review of Systems Constitutional: Reports no additional constitutional complaints Cardiovascular: Reports no additional cardiovascular complaints Respiratory: Reports no additional respiratory complaints Gastrointestinal: Reports no additional gastrointestinal complaints Skin/Breast: Reports system reviewed and no additional complaints, except as docu Reports system reviewed and no additional complaints, except as documented Physical Exam Vital Signs: Last Vital Signs Temp 97.8 F 01/08/25 08:00 Pulse 75 01/08/25 08:00 Resp 17 01/08/25 08:00 BP 143/63 H 01/08/25 08:00 Pulse Ox 96 01/08/25 08:00 O2 Del Method Room Air 01/08/25 08:00 BMI result Body Mass Index 30.4 Const General: cooperative, comfortable, alert and awake Nutritional Appearance: overweight Orientation/consciousness: patient oriented x3 HEENT Head: Yes normocephalic and Yes atraumatic Neck Neck: Yes trachea midline, Yes supple and Yes JVD Resp Effort & Inspection: normal respiratory effort Auscultation: clear to auscultation bilaterally Cardio Jugular venous distension: JVD Rate: regular rate Rhythm: regular rhythm Heart sounds: S1 normal heart sound present, S2 normal heart sound present, no click, Gallop heart sound present S3 gallop and Murmur heart sound present systolic early Skin General skin exam: no rashes or lesions noted Neuro General: patient oriented x3 and no focal motor deficits Extrem General: Yes no clubbing, cyanosis or edema Objective Labs and Meds 01/08/25 06:31 01/08/25 06:31 Lab results: Laboratory Results - last 24 hr 01/07/25 01/07/25 01/07/25 12:59 18:29 19:30 WBC RBC Hgb Hct MCV MCH MCHC RDW Plt Count MPV Absolute Nucleated RBC Nucleated RBC % (auto) Sodium Potassium Chloride Carbon Dioxide Anion Gap BUN Creatinine Estim Creat Clear Calc Estimated GFR POC Glucose 127 H 158 H 164 H Random Glucose Calcium Magnesium 01/07/25 01/08/25 01/08/25 20:44 06:31 07:43 WBC 5.5 RBC 3.45 L Hgb 9.2 L Hct 29.7 L MCV 86.1 MCH 26.7 L MCHC 31.0 RDW 14.0 Plt Count 216 MPV 10.3 Absolute Nucleated RBC 0.000 Nucleated RBC % (auto) 0.0 Sodium 141 Potassium 3.5 D Chloride 106 Carbon Dioxide 28 Anion Gap 11 L BUN 11 Creatinine 0.82 Estim Creat Clear Calc 42.4 Estimated GFR > 60 POC Glucose 171 H 110 Random Glucose 120 H Calcium 8.4 Magnesium 1.6 Progress Note: A&P Assessment and plan (1) Decompensated heart failure with reduced ejection fraction (HFrEF): Status: Acute Assessment and Plan: Acute decompensated congestive heart failure in this elderly woman most likely ischemic in nature of severe LV systolic dysfunction. Currently on carvedilol as well as Jardiance therapy. Can switch to oral diuretic regimen. Add Entresto for neurohormonal modulation to reduce risk of recurrent heart failure. Check basic metabolic profile tomorrow. Continue spironolactone therapy as well. Management was discussed. 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 Will need amiodarone loading 400 mg b.i.d. for 2 weeks followed by 200 mg daily as outpatient. Continue guideline based medical therapy as above. If stable by tomorrow can be discharged. Will sign of the case Time Spent With Patient Time: Total time managing care of this patient today ____ minutes. Progress Note: Quality Stroke Does the patient have a stroke diagnosis?: No Procedures Date of Service Date of Service: 01/08/25
[2025-01-08 11:27] LABS: Glucose, Whole Blood 168 mg/dL (60-115)
[2025-01-08 12:00] VITALS: BP 120/57; PULSE 76; RESP 17; TEMP 36.8; O2SAT 93
[2025-01-08 14:07] LABS: Glucose, Whole Blood 132 mg/dL (60-115)
[2025-01-08 15:20] LABS: ABG HCO3 34 mmol/L (22-26); ABG O2 % Saturation 95.0 %
[2025-01-08 15:22] LABS: Glucose, Whole Blood 110 mg/dL (60-115)
--- NOTE | 2025-01-08 16:22 | PC.NURSE ---
This RN found patient to be very lethargic and unresponsive to verbal stimuli at 1400. Patient only slightly responsive to painful stimuli. MD notified and vital signs taken BP 155/74 HR 9496% on room air. Blood sugar also taken, 132. Per MD check STAT ABG and STAT head ct. Both obtained and both came back WNL. Head CT negative for stroke. Patient remained in this state for 2.5 hours. Per MD check ammonia and do EEG. As this RN was entering the room to talk with family patient suddenly awoke and started talking in full sentences was back at her baseline. Patient was able to state that she needed to use the bathroom and was then able to get oob to the commode without issue. Per MD contnue with doing ammonia and EGG to make sure all is WNL.
--- NOTE | 2025-01-08 16:30 | PM.EVENT ---
Event Note Date of Service: 01/08/25 Event Note: Episode of unresponsiveness lasting nearly 2 to 3 hours, vitals were wnl, barely responded to sternal jorge luis, o/w no focal neuro deficit, stat ct no acute finding, ABG, PCO2 55, normal pH, med reviewed no sedation med given, EEG requested. Woke up spontaneously and interacting at her baseline with family. ? deep sleep.. EEG result pending Time Spent With Patient Time: Total time managing care of this patient today ____ minutes.
--- NOTE | 2025-01-08 18:02 | EEG_ITS ---
Reason for Exam: Unresponsive Roomed Performed:?[id number] History: Anemia,Prolapsed hemorrhoids,Diabetic nephropathy with proteinuria,Hyperlipidemia,HTN, IBS, Prolapsed internal hemorrhoids,Chronic kidney disease, stage III (moderate) (BMI 30-39.9)Mixed hyperlipidemia,Hypertensive heart disease,Left bundle branch block Bladder prolapse Diabetes mellitus GERD Medication: mirabegron 50 mg tablet, mg PO DAILY02/14Historyrelease 24 hr (Myrbetriq)omeprazole 20 mg capsule, mg PO DAILY@379490//Historyreleaseestradiol 0.01% (0.1 mg/gram)1 appl vaginal [id number]/16/250911/2509Historyvaginal creamlidocaine 4 % topical patch1 patch topical DAILY PRN Pain12/16/2509UnknownHistorylosartan 50 mg laofno22 mg PO DAILY12/16/250911/2509Historydulaglutide 0.75 mg/0.5 mL0.75 mg subcut MO01/07/251011/2509Historysubcutaneous pen injector(Trulicity) Technical description:? Photic stimulation: Completed Hyperventilation:?Omitted Behavioral state: Cooperative State of Consciousness: Awake Skull defect: None Sedation: None Handedness: Right Duration of study:? 29min ? ? 28sec Description: This is a 16 channel EEG with an EKG lead. Patient is reported awake during the tracing. Background EEG rhythm is mixed theta beta medium amplitude with no obvious asymmetry or paroxysmal tendency. Photic stimulation does not produce any significant driving. Hyperventilation is not performed. Cardiac lead does not reveal any significant abnormality. No sharp wave spikes or paroxysmal tendency noted. Impression: Mild slowing with no evidence of seizure disorder. MTDD
[2025-01-08 19:29] VITALS: BP 118/58; PULSE 79; RESP 20; TEMP 37.2; O2SAT 95; BMI 25.5
[2025-01-08] MEDS: Sacubitril/Valsartan 24/26 1 TAB TABLET PO (20:19)
[2025-01-08] MEDS: 0.9 % Sodium Chloride Flush 3 ML SYRINGE IVFLUSH (20:21)
[2025-01-08 20:46] LABS: Glucose, Whole Blood 210 mg/dL (60-115)
[2025-01-09] VITALS (8 sets, daily range): BP systolic 114–141; BP diastolic 57–64; PULSE 71–85; RESP 16–20; TEMP 36.3–37; O2SAT 94–100
[2025-01-09 07:33] LABS: Glucose, Whole Blood 88 mg/dL (60-115)
[2025-01-09] MEDS: Aspirin Enteric Coated 81 MG TABLET.DR PO (09:48)
[2025-01-09] MEDS: Mirabegron 50 MG TAB.ER.24H PO (09:48)
[2025-01-09] MEDS: Sacubitril/Valsartan 24/26 1 TAB TABLET PO ×2 (09:48→21:06)
[2025-01-09] MEDS: 0.9 % Sodium Chloride Flush 3 ML SYRINGE IVFLUSH ×3 (09:49→21:09)
[2025-01-09] MEDS: Lidocaine 4 % Patch ADH..PATCH 1 PATCH TRANSDERMA (09:50)
--- NOTE | 2025-01-09 10:10 | P.PNIM_ITS ---
Subjective Subjective Date of Service: 01/09/25 Interval History: pt was again unresponsive, similar to yesterday, normal vitals ocasional wakes up to say leave me alone, then later became awake again did not receive sedative medications. Vitals have been normal Physical Exam 2 Vital Signs: Vital Signs: Last Vital Signs Temp 97.3 F 01/09/25 07:37 Pulse 71 01/09/25 07:37 Resp 20 01/09/25 07:37 BP 135/63 01/09/25 07:37 Pulse Ox 97 01/09/25 07:37 O2 Del Method Room Air 01/09/25 07:37 BMI result Body Mass Index 25.5 Const: Other: General: now awake, alert, oriented to self Resp: CTA bilateral CVS: S1,S2,RRR GI: +BS, NT, no distention Skin: No rash Neuro: motor grossly intact Psych: appropriate affect Objective Data Active Medications Acetaminophen (Acetaminophen 325 Mg Tablet) 650 mg PO Q6H PRN PRN Reason: Pain, Mild 1-3,fever,headache Amiodarone HCl (Amiodarone Hcl 200 Mg Tablet) 400 mg PO BID [facility] Last Admin: 01/09/25 09:49 Dose: 400 mg Documented By: ARMANDO Aspirin (Aspirin Enteric Coated 81 Mg Tablet.) 81 mg PO DAILY [facility] Last Admin: 01/09/25 09:48 Dose: 81 mg Documented By: ARMANDO Atorvastatin Calcium (Atorvastatin Calcium 20 Mg Tablet) 20 mg PO BEDTIME [facility] Last Admin: 01/08/25 20:19 Dose: 20 mg Documented By: OLGA LIDIA Calcium Carbonate (Calcium Carbonate 750 Mg Tab.Chew) 750 mg PO Q4H PRN PRN Reason: Heartburn Carvedilol (Carvedilol 6.25 Mg Tablet) 6.25 mg PO BID [facility]; Protocol Last Admin: 01/09/25 09:49 Dose: 6.25 mg Documented By: ARMANDO Dextrose (Dextrose 50 % 25 Gm/50 Ml Syringe) 25 gm IVPUSH Q15M PRN; Protocol PRN Reason: per Hypoglycemia Standing Ord. Dicyclomine HCl (Dicyclomine Hcl 10 Mg Capsule) 10 mg PO BID PRN PRN Reason: abdominal pain Empagliflozin (Empagliflozin 10 Mg Tablet) 10 mg PO DAILY [facility] Last Admin: 01/09/25 09:49 Dose: 10 mg Documented By: ARMANDO Gabapentin (Gabapentin 400 Mg Capsule) 400 mg PO BID [facility] Last Admin: 01/09/25 10:03 Dose: Not Given Documented By: ARMANDO Non-Admin Reason: Physician Held Med Glucose (Glucose Gel 15 Gm Gel..Gram.) 15 gm PO Q15M PRN; Protocol PRN Reason: per Hypoglycemia Standing Ord. Heparin Sodium (Porcine) (Heparin Sodium,Porcine 5,000 Unit/Ml Vial) 5,000 unit SUBCUT Q12H [facility] Last Admin: 01/09/25 09:47 Dose: 5,000 unit Documented By: ARMANDO Insulin Glargine (Insulin Glargine,Hum.Rec.Anlog 100 Unit/Ml 10 Ml Vial) 10 unit SUBCUT DAILY [facility] Last Admin: 01/09/25 10:10 Dose: Not Given Documented By: ARMANDO Non-Admin Reason: No Insulin Coverage Insulin Human Lispro (Insulin Lispro 100 Unit/Ml 3 Ml Vial) 0 unit SUBCUT QIDACHS [facility]; Protocol Last Admin: 01/09/25 09:16 Dose: Not Given Documented By: BHAVANA Non-Admin Reason: No Insulin Coverage Lidocaine (Lidocaine 4 % Patch Adh..Patch) 1 patch TRANSDERMA DAILY [facility]; Protocol Last Admin: 01/09/25 09:50 Dose: 1 patch Documented By: ARMANDO Magnesium Hydroxide (Milk Of Magnesia 30 Ml Oral.Susp) 30 ml PO DAILY PRN PRN Reason: Constipation Melatonin (Melatonin 3 Mg Tablet) 6 mg PO BEDTIME PRN PRN Reason: Insomnia Last Admin: 01/07/25 21:44 Dose: 6 mg Documented By: ÁNGEL Mirabegron (Mirabegron 50 Mg Tab.Er.24h) 50 mg PO DAILY [facility] Last Admin: 01/09/25 09:48 Dose: 50 mg Documented By: ARMANDO Omeprazole (Omeprazole 20 Mg Capsule.Dr) 20 mg PO DAILY@0630 [facility] Last Admin: 01/09/25 05:50 Dose: 20 mg Documented By: OLGA LIDIA Sacubitril/Valsartan (Sacubitril/Valsartan 1 Tab Tablet) 1 tab PO BID [facility]; Protocol Last Admin: 01/09/25 09:48 Dose: 1 tab Documented By: ARMANDO Sodium Chloride (0.9 % Sodium Chloride Flush 3 Ml Syringe) 3 ml IVFLUSH QSHIFT [facility] Last Admin: 01/09/25 09:49 Dose: 3 ml Documented By: ARMANDO Spironolactone (Spironolactone 25 Mg Tablet) 25 mg PO DAILY [facility]; Protocol Last Admin: 01/09/25 09:48 Dose: 25 mg Documented By: ARMANDO Tramadol HCl (Tramadol Hcl 50 Mg Tablet) 50 mg PO BID PRN PRN Reason: Pain, Moderate(Pain Scale 4-6) Labs 01/08/25 06:31 01/08/25 06:31 Labs: Laboratory Results - last 24 hr 01/08/25 01/08/25 01/08/25 11:21 14:02 15:11 O2 Saturation ABG pH at Pt Temp ABG pCO2 at Pt Temp ABG pO2 at Pt Temp ABG HCO3 ABG Base Excess (Actual) POC Glucose 168 H 132 H 110 01/08/25 01/08/25 01/09/25 15:16 20:42 07:25 O2 Saturation 95.0 ABG pH at Pt Temp 7.42 ABG pCO2 at Pt Temp 52 H ABG pO2 at Pt Temp 74 L ABG HCO3 34 H ABG Base Excess (Actual) 8.6 POC Glucose 210 H 88 Assessment and Plan (1) Heart failure with reduced ejection fraction: Status: Acute (2) Ventricular tachyarrhythmia: Status: Acute Plan This is an 89 year old female with history of PMH HFrEF 25%, PNA, HLD, IBS-D, CKD 3b, GERD, chronic LBBB, DM recent admission for diverticulitis and anemia who presents to the ED with shortness of breath found to have CHF and an episode of NSVT acute on chronic HFrEF not taking diuretics b/c it makes her urinate frequently +sob, GRIFFIN, +JVD, leg edema; b/l plural effusions continue PO Lasix Monitor I's and o's closely to assess diuretic response cardiology following Monitor electrolytes NSVT resume coreg received IV bolus and then was started on amio drip in ED - continue amiodorone drip and now PO 400 bid follow lytes with goal to keep k >4 and mag >2 tele monitoring cardiology following NSTEMI, type 2 due to decompensated CHF, NSVT and probable underlying CAD has declined cardiac cath in the past, long discussion in ED with cardiology and family - she will consider pursuing cardiac cath continue baseline asa, statin and BB trops flat tele monitoring cardiology following DM SSI, POCs, ADA diet trulicity NF, will hold jardiance 10 added will convert toujeo to Lantus at reduced dose, titrate as needed CKD3B renal function at baseline chronic anemia H/H at baseline Thyroid nodule seen on imaging recommend outpatient thyroid US Episodoes of unresponsiveness, normal Vital. CT head, negative, labs unremarkable. EEG done result pending. Neuro consult pending code status - DNR/DNI, discussed with pt and family at bedside and MOLST filled out. The severity of ventricular tachycardia was discussed with family. PT eval, likeoly home tomorrow Quality Stroke Does the patient have a stroke diagnosis?: No VTE Prior VTE?: No VTE Risk Level:: Medical - moderate - high VTE Device Contraindication: N/A - Device Ordered VTE Drug Contraindication: N/A - Med Ordered
[2025-01-09 11:39] LABS: Glucose, Whole Blood 175 mg/dL (60-115)
[2025-01-09 16:30] LABS: Glucose, Whole Blood 180 mg/dL (60-115)
[2025-01-09 20:28] LABS: Glucose, Whole Blood 186 mg/dL (60-115)
[2025-01-10 04:00] VITALS: BP 141/65; PULSE 67; RESP 20; TEMP 36.6; O2SAT 96
[2025-01-10 07:30] VITALS: BP 149/63; PULSE 69; RESP 20; TEMP 36.9; O2SAT 97
[2025-01-10 08:24] LABS: Glucose, Whole Blood 116 mg/dL (60-115)
[2025-01-10] MEDS: Mirabegron 50 MG TAB.ER.24H PO (08:37)
[2025-01-10] MEDS: Sacubitril/Valsartan 24/26 1 TAB TABLET PO (08:37)
[2025-01-10] MEDS: Aspirin Enteric Coated 81 MG TABLET.DR PO (08:37)
[2025-01-10] MEDS: Insulin Glargine,Hum.rec.anlog 100 UNIT/ML 10 ML VIAL 10 UNIT SUBCUT (08:38)
[2025-01-10] MEDS: 0.9 % Sodium Chloride Flush 3 ML SYRINGE IVFLUSH (08:44)
[2025-01-10] MEDS: Lidocaine 4 % Patch ADH..PATCH 1 PATCH TRANSDERMA (08:44)
--- NOTE | 2025-01-10 10:09 | PM.DS ---
DS: Providers Provider Date of Service: 01/10/25 Date of admission: 01/07/25 08:54 Date of discharge: 01/10/25 Primary care physician: Rico Deras MD Consults: 01/07/25 08:27 Consult to Cardiology Routine Consulting Provider: [facility] [place] [facility] Reason for consultation: NSVT; CHF 01/08/25 15:55 Consult to Neurology Routine Consulting Provider: [facility] Reason for consultation: Acute unresponsiveness Has provider been notified: No DS: Diagnosis Discharge Diagnosis (1) Heart failure with reduced ejection fraction: Status: Acute (2) Ventricular tachyarrhythmia: Status: Acute DS: Summary Hospital Course Hospital Course: Reason for Admission: 89-year-old female with a history of HFrEF (EF 25%), pneumonia, hyperlipidemia, IBS-D, CKD 3b, GERD, chronic LBBB, diabetes mellitus, recent diverticulitis and anemia, presenting with shortness of breath. Found to have acute on chronic heart failure exacerbation and an episode of non-sustained ventricular tachycardia (NSVT). Hospital Course: Acute on Chronic HFrEF (EF 25%) The patient presented with shortness of breath, dyspnea on exertion, jugular venous distension, leg edema, and bilateral pleural effusions. She was not taking diuretics at home due to urinary frequency. IV diuretics, oral Lasix was restarted with close monitoring of intake/output and electrolytes. Cardiology was consulted and followed throughout admission. Further medical management include aldactone, Jardiance, and entresto--see med list NSVT She experienced an episode of NSVT in the emergency department, received an IV bolus, and was started on an amiodarone drip, later transitioned to oral amiodarone 400 mg BID. Coreg (carvedilol) was resumed. She remained on telemetry monitoring throughout admission. Electrolytes were monitored and maintained with a goal potassium close to 4 and mag close to 2. Cardiology followed her care. NSTEMI, Type 2 This was likely secondary to decompensated CHF, NSVT, and probable underlying coronary artery disease. Troponins remained flat. She had previously declined cardiac catheterization; after discussion with cardiology and family, she will consider cardiac catheterization in the future. She continued on baseline aspirin, statin, and beta-hilario. She remained on telemetry monitoring. Cardiology followed her care. Diabetes Mellitus Her diabetes was managed with sliding scale insulin, [id number] glucose checks, and an ADA diet. Trulicity was not on formulary and was held. Jardiance 10 mg was added. Her insulin regimen was changed from Toujeo to Lantus at a reduced dose, titrated as needed. but to return to usual home regimen CKD 3b Renal function remained at baseline during admission. Chronic Anemia Hemoglobin and hematocrit remained stable at baseline. Thyroid Nodule A thyroid nodule was incidentally noted on imaging. Outpatient thyroid ultrasound is recommended. Episodes of Unresponsiveness She had episodes of unresponsiveness with normal vital signs during the events. CT head was negative and labs were unremarkable. EEG was performed and results are pending. Gabpentin was reviewed as likely cause and held and had not had further episode and therefore will reduce dose from 400 bid to 100 bid Condition at Discharge: Stable, at baseline mental status, hemodynamically stable, no acute distress. Discharge Disposition: Home with family/caregiver support Time Attestation Discharge Coordination Time (in mins): 45 Quality: Safe Use of Opioids Does Pt have an Active Cancer Diagnosis on the Problem List?: No Quality: Stroke Does the patient have a stroke diagnosis?: No Physical Exam Vital Signs: Vital Signs: Last Vital Signs Temp 98.4 F 01/10/25 07:30 Pulse 69 01/10/25 07:30 Resp 20 01/10/25 07:30 BP 149/63 H 01/10/25 07:30 Pulse Ox 97 01/10/25 07:30 O2 Del Method Room Air 01/10/25 07:30 BMI result Body Mass Index 25.5 Const: Other: General: now awake, alert, oriented to self Resp: CTA bilateral CVS: S1,S2,RRR GI: +BS, NT, no distention Skin: No rash Neuro: motor grossly intact Psych: appropriate affect DS: Data Data Completed and Pending Completed studies during hospitalization [Text1]: Procedures Transfusion of Nonautologous Red Blood Cells into Peripheral Vein, Percutaneous Approach (12/16/24) Labs on day of discharge: Laboratory Results - last 24 hr 01/09/25 01/09/25 01/09/25 11:35 16:26 20:15 POC Glucose 175 H 180 H 186 H 01/10/25 08:12 POC Glucose 116 H Discharge Plan Discharge Anticipated Discharge Date/Time: 01/10/25 10:49 Patient Disposition: Home Health Service Discharge Diagnosis: NSVT, decompensated heart failure Referrals: Rico Deras MD [Primary Care Provider, Internal Medicine] - 1 Week Discharge Medications: New furosemide 40 mg Tablet 40 mg PO DAILY Qty: 90 0RF Protocol: Hold for SBP< HOLD for SBP < : 90 spironolactone 25 mg Tablet 25 mg PO DAILY Qty: 90 0RF Protocol: Hold for SBP< HOLD for SBP < : 90 Jardiance 10 mg Tablet 10 mg PO DAILY Qty: 90 0RF sacubitril-valsartan [Entresto] 24-26 mg Tablet 1 tab PO BID Qty: 180 0RF Protocol: Hold for SBP< HOLD for SBP < : 90 gabapentin 100 mg capsule 100 mg PO BID Qty: 60 0RF amiodarone 200 mg tablet See Rx Instructions .Route .COMPLEX Qty: 140 0RF Rx Instructions: Take 2 tbas twice daily for 12 more days, then after take 1 tab tab daily Continued (DME) bedside commode Kit See Rx Instructions .Route Qty: 1 0RF Rx Instructions: As directed (DME) blood-glucose meter [OneTouch Ultra2 Meter] Misc See Rx Instructions .Route Qty: 1 0RF Rx Instructions: test 3 times daily (DME) lancets [OneTouch UltraSoft 2 Lancet] 30 gauge misc See Rx Instructions .Route Qty: 100 12RF Rx Instructions: test 3 times per day (DME) Raised toilet seat with arms See Rx Instructions .Route .MEDSUPPLY Qty: 1 0RF Rx Instructions: As directed (DME) OneTouch Ultra Test Strip See Rx Instructions .Route Qty: 100 11RF Rx Instructions: test 3 times per day (DME) body wipes See Rx Instructions .Route .MEDSUPPLY Qty: 1 3RF Rx Instructions: As directed (DME) diaper,brief,adult,disposable Misc See Rx Instructions .Route Qty: 100 0RF Rx Instructions: As directed size mediun (DME) Disposable bed pads See Rx Instructions .Route .MEDSUPPLY Qty: 3 3RF Rx Instructions: As directed (DME) Adult pull ups medium See Rx Instructions .Route .MEDSUPPLY Qty: 240 11RF Rx Instructions: As directed carvedilol 6.25 mg tablet 6.25 mg PO BID Qty: 180 3RF Rx Instructions: must administer with a meal/food (DME) Disposable tiesha-pads See Rx Instructions .Route .MEDSUPPLY Qty: 240 11RF Rx Instructions: As directed aspirin [Adult Aspirin Regimen] 81 mg tablet,delayed release (DR/EC) 81 mg PO DAILY Qty: 90 3RF insulin glargine U-300 conc [Toujeo SoloStar U-300 Insulin] 300 unit/mL (1.5 mL) insulin pen 20 unit subcut DAILY Qty: 4.5 0RF atorvastatin 20 mg tablet 20 mg PO BEDTIME Qty: 90 3RF tramadol 50 mg tablet 50 mg PO BID PRN (Reason: pain) Qty: 60 0RF meclizine [Motion Sickness Relief(mecliz)] 25 mg tablet 25 mg PO DAILY PRN (Reason: motion sickness) Qty: 14 0RF epinephrine [EpiPen 2-Mariano] 0.3 mg/0.3 mL auto-injector 0.3 mg IM Q10M PRN (Reason: anaphylaxis) Qty: 1 0RF Rx Instructions: for 2 doses dicyclomine 10 mg capsule 10 mg PO BID PRN (Reason: abdominal pain) Qty: 10 0RF omeprazole 20 mg capsule,delayed release(DR/EC) 20 mg PO DAILY@0630 lidocaine 4 % Adhesive Patch,Medicated 1 patch TOPICAL DAILY PRN (Reason: Pain) estradiol 0.01 % (0.1 mg/gram) cream 1 appl vaginal BEDTIME Trulicity 0.75 mg/0.5 mL pen injector 0.75 mg subcut MO Myrbetriq 50 mg tablet extended release 24 hr 50 mg PO DAILY (DME) blood pressure monitor [Blood Pressure Kit] Kit See Rx Instructions .ROUTE .MEDSUPPLY Qty: 1 0RF Rx Instructions: As directed Discontinued gabapentin 400 mg capsule 400 mg PO BID Qty: 180 4RF losartan 50 mg tablet 50 mg PO DAILY furosemide [Lasix] 20 mg tablet 20 mg PO DAILY PRN (Reason: Shortness of breath, leg swelling) Qty: 30 1RF Discharge Orders: Discharge Order (Routine); Ordered 01/10/25 Ordered By: Maximiliano Rojo Diet: Diabetic diet Activity on Discharge: As tolerated Stand Alone Forms: Patient Portal Discharge page Print Language: Luxembourger Care Plan Goals: To optimize symptom control, prevent further decompensation and hospitalization, and maintain quality of life. Focus will be on medical management of heart failure and arrhythmia, with outpatient follow-up Health Concerns: acute on chronic heart failure exacerbation with arrhythmia (NSVT) in the setting of multiple comorbidities, including advanced age, chronic kidney disease, and diabetes. Plan of Treatment: Continue guideline-directed medical therapy for heart failure and arrhythmia, including diuretics, beta-hilario, aldactone, entresto, Lasix and amiodarone. Avoid excessive water drinking no more 1800 cc. Follow up with systems design engineer and follow up with your primary care doctor, call for appointment Visiting nurses services at home Gabpentin dose has been reduced to 100 mg twice daily. Lasix dose increased to 40 mg daily Assessment: see above
--- NOTE | 2025-01-10 11:04 | W.MHC.F2F ---
Service Date Service Date: 01/10/25 Encounter Date of encounter: 01/10/25 Reasons for Services Signs and symptoms assessed: 40 Reason for senior living: medication management and medication treatment Homebound: Leaving the home is medically contraindicated at this time without the asist of a device and/or another person due th the listed conditions above and below. Reason homebound: fall risk related to blood pressure changes, shortness of breath with minimal effort, cognitively impaired / unsafe and weakness related to hospital stay Homebound supporting statement: The patient is homebound due to limited mobility and significant fatigue from advanced heart failure and multiple comorbidities. VNA services are needed for medication management, monitoring of heart failure symptoms, and support with activities of daily living. Certification: Based on the above findings, I certify that this patient is confined to the home and needs intermittent senior living care, physical therapy and/or speech therapy, or continues to need occupational therapy. The patient is under my care, and I have initiated the establishment of the plan of care. The patient will be followed by a physician who will periodically review the plan of care. Time Spent With Patient Time: Total time managing care of this patient today ____ minutes.
[2025-01-10 11:14] VITALS: BP 115/57; PULSE 71; RESP 18; TEMP 36.7; O2SAT 97
[2025-01-10 11:36] LABS: Glucose, Whole Blood 167 mg/dL (60-115)
--- NOTE | 2025-01-10 12:06 | MHC.CM.PN ---
Addendum entered by Hermila Bingham 01/10/25 16:30: [facility] DECLINED REFERRAL COMFORT PLUS ABLE TO PROVIDE SERVICES Original Note: PT CLEARED TO DC HOME TODAY WITH RESUMPTION OF HEEL TURNER/FAMILY SUPPORT AND NEW [facility] REFERRAL SENT TO [facility] FOR SN SERVICES FAMILY TO TRANSPORT
== END 2025-01-10 12:04 | disposition home health service (06) | DRG 280 ==
LOC: HO.ED 08:21 → HO.EDOVER 08:57 → HO.IMC 19:41
PROVIDERS: Admitting Provider Physician Assistant Medical; Emergency Provider Emergency Medicine; PCP Internal Medicine; Visit Provider Internal Medicine
DX: I13.0 Hypertensive heart and chronic kidney disease with heart failure and stage 1 through stage 4 chronic kidney disease, or unspecified chronic kidney disease (principal); I50.23 Acute on chronic systolic (congestive) heart failure; I21.A1 Myocardial infarction type 2; I47.20 Ventricular tachycardia, unspecified; I25.10 Atherosclerotic heart disease of native coronary artery without angina pectoris; E11.22 Type 2 diabetes mellitus with diabetic chronic kidney disease; E04.1 Nontoxic single thyroid nodule; Z66 Do not resuscitate; R40.4 Transient alteration of awareness; T42.6X5A Adverse effect of other antiepileptic and sedative-hypnotic drugs, initial encounter; D63.1 Anemia in chronic kidney disease; N18.32 Chronic kidney disease, stage 3b; Z20.822 Contact with and (suspected) exposure to COVID-19; Z87.891 Personal history of nicotine dependence; Z79.82 Long term (current) use of aspirin; Z79.85 Long-term (current) use of injectable non-insulin antidiabetic drugs; Z79.899 Other long term (current) drug therapy
CPT/HCPCS: 36415; 70450; 71045; 80048; 80053; 82803; 82947; 83735; 83880; 84484; 85025; 85027; 87637; 93005; 97162; 99285; J0282; J0283; J1644; J1938; J3475

== ENCOUNTER → 2025-01-07 05:33 | Outpatient (BNV) | payer OTHER, SELFPAY | PROVIDERS: Emergency Provider Emergency Medicine; Visit Provider Radiology Diagnostic Radiology | DX: I51.7 Cardiomegaly (principal); J90 Pleural effusion, not elsewhere classified; E04.1 Nontoxic single thyroid nodule; R91.8 Other nonspecific abnormal finding of lung field | CPT/HCPCS: 71045 ==

== ENCOUNTER 2025-01-07 08:54 | Outpatient (BNV) | payer OTHER, SELFPAY | END 2025-01-08 15:58 | PROVIDERS: Admitting Provider Physician Assistant Medical; Emergency Provider Emergency Medicine; PCP Internal Medicine; Visit Provider Psychiatry & Neurology Neurology | DX: R46.4 Slowness and poor responsiveness (principal) | CPT/HCPCS: 95816 ==

== ENCOUNTER 2025-01-07 08:54 | Outpatient (BNV) | payer OTHER, SELFPAY | END 2025-01-08 15:42 | PROVIDERS: Admitting Provider Physician Assistant Medical; Emergency Provider Emergency Medicine; PCP Internal Medicine; Visit Provider Radiology Diagnostic Radiology | DX: I67.82 Cerebral ischemia (principal) | CPT/HCPCS: 70450 ==

== ENCOUNTER → 2025-01-07 08:54 | Outpatient (BNV) | payer OTHER, SELFPAY | PROVIDERS: Admitting Provider Physician Assistant Medical; Emergency Provider Emergency Medicine; Visit Provider Internal Medicine | DX: I50.23 Acute on chronic systolic (congestive) heart failure (principal); I47.29 Other ventricular tachycardia | CPT/HCPCS: 99223; 99232; 99499 ==

== ENCOUNTER → 2025-01-07 08:54 | Outpatient (BNV) | payer OTHER, SELFPAY | PROVIDERS: Admitting Provider Physician Assistant Medical; Emergency Provider Emergency Medicine; Visit Provider Internal Medicine Cardiovascular Disease | DX: I50.23 Acute on chronic systolic (congestive) heart failure (principal); I47.29 Other ventricular tachycardia | CPT/HCPCS: 93010; 99222 ==

== ENCOUNTER 2025-01-14 13:04 | Outpatient (AMB) | payer OTHER, SELFPAY ==
[2025-01-14 13:19] VITALS: BP 110/56; PULSE 62; RESP 18; TEMP 36.3; O2SAT 96; BMI 28.7
--- NOTE | 2025-01-14 13:19 | A.OFFPC_ITS ---
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: No Accompanied by: Daughter Allergies Iodinated Contrast Media (IV CONTRAST) Allergy (Unknown, Verified 01/14/25 13:20) UNKNOWN Tobacco use date assessed: 01/14/25 Fall risk assessment: No Falls in past year Last assessed Fall Risk: 01/14/25 Dental Screening Dental Screen Date: 01/14/25 Did you have a dental visit in the last 12 months?: Yes Did you have a dental problem in the last 6 months where you did not have access to dental care?: No Was dental information given to patient?: Patient has dentist HPI [facility] TCM Information Date of Discharge 01/10/25 Discharged From [facility] Interactive Contact Date (Reference documentation from this date) 01/12/25 HPI Comments History of Present Illness Details She reported feeling ill and experiencing dyspnea prior to her recent hospi talization, where she was diagnosed with heart failure. She was started on medications including spironolactone, amiodarone, and furosemide, but noted that one medication, Entresto, was missing from her regimen althpough it was Prescribed on discharge. TCM: admission date 01/07 Discharge date 01/10. Diagnosis: Heart faillure with reduced ejection fraction. [facility] Medical History Anemia Prolapsed hemorrhoids Diabetic nephropathy with proteinuria Hyperlipidemia HTN (hypertension) IBS (irritable bowel syndrome) Prolapsed internal hemorrhoids Chronic kidney disease, stage III (moderate) Obesity (BMI 30-39.9) Mixed hyperlipidemia Hypertensive heart disease Left bundle branch block Bladder prolapse Diabetes mellitus GERD (gastroesophageal reflux disease) Surgical History History of bladder repair surgery History of ERCP History of bilateral cataract extraction History of cholecystectomy History of excision of mass History of colonoscopy History of ankle surgery Family History Father No problems noted. Mother No problems noted. Family/Other Lung cancer Esophagus cancer Other Mental health disorder Substance use disorder Social History Household Members: Family and Children Household Members Other:: children Housing: House Do you presently have visiting nurse or other home services: No Alcohol intake: never Patient Tobacco Use Status: Former Tobacco user e-Cigarette/Vaping Use: Never Used Second Hand Smoke Exposure: No Advance Directives Date on File: 04/19/23 service: No Current occupational status: disabled Cognitive needs: Yes (cane/walker) Hearing needs: No Vision needs: Yes (glasses) Questionnaire Thrive Questionnaire Date Thrive assessed: 01/08/25 MENDEL-7 AMB Questionnaire MENDEL-7 Date MENDEL - 7 assessed: 12/11/24 Source: Developed by Drs. Vu Harris, Huma Roque, Ronak Nichols and colleagues, with an educational yury from [employer]. Review of Systems Const Details: Positives besides what was mentioned in HPI are in BOLD Constitutional: No Weight Change, No Fever, No Chills, No Night Sweats, No Fatigue, No Malaise ENT/Mouth: No Hearing Changes, No Ear Pain, No Nasal Congestion, No Sinus Pain, No Hoarseness, No sore throat, No Rhinorrhea, No Swallowing Difficulty Eyes: No Eye Pain, No Swelling, No Redness, No Foreign Body, No Discharge, No Vision Changes Cardiovascular: No Chest Pain, No SOB, No PND, No Dyspnea on Exertion, No Orthopnea, No Claudication, No Edema, No Palpitations Respiratory: No Cough, No Sputum, No Wheezing, No Smoke Exposure, No Dyspnea Gastrointestinal: No Nausea, No Vomiting, No Diarrhea, No Constipation, No Pain, No Heartburn, No Anorexia, No Dysphagia, No Hematochezia, No Melena, No Flatulence, No Jaundice Genitourinary: No Dysmenorrhea, No DUB, No Dyspareunia, No Dysuria, No Urinary Frequency, No Hematuria, No Urinary Incontinence, No Urgency, No Flank Pain, No Urinary Flow Changes, No Hesitancy Musculoskeletal: No Arthralgias, No Myalgias, No Joint Swelling, No Joint Stiffness, No Back Pain, No Neck Pain, No Injury History Skin: No Skin Lesions, No Pruritis, No Hair Changes, No Breast/Skin Changes, No Nipple Discharge Neuro: No Weakness, No Numbness, No Paresthesias, No Loss of Consciousness, No Syncope, No Dizziness, No Headache, No Coordination Changes, No Recent Falls Psych: No Anxiety/Panic, No Depression, No Insomnia, No Personality Changes, No Delusions, No Rumination, No SI/HI/AH/VH, No Social Issues, No Memory Changes, No Violence/Abuse Hx., No Eating Concerns Heme/Lymph: No Bruising, No Bleeding, No Transfusions History, No Lymphadenopathy Endocrine: No Polyuria, No Polydipsia, No Temperature Intolerance Physical exam (Primary Care) Vital Signs: Last Vital Signs Temp 97.3 F 01/14/25 13:19 Pulse 62 01/14/25 13:19 Resp 18 01/14/25 13:19 BP 110/56 L 01/14/25 13:19 Pulse Ox 96 01/14/25 13:19 Oxygen Delivery Method Room Air 01/14/25 13:19 BMI result Body Mass Index 28.7 Tobacco/Smoking Status: Tobacco use Status Tobacco use date assessed 01/14/25 01/14/25 13:21 Patient Tobacco Use Status Former Tobacco user 01/14/25 13:21 e-Cigarette/Vaping Use Never Used 01/14/25 13:21 Thrive Assessment: Date of Thrive Assessment Date Thrive assessed 01/08/25 01/14/25 13:21 Const Other: Pertinent findings are in BOLD GENERAL APPEARANCE NAD, activity normal for age, well developed/ well nourished, no cyanosis, pallor, or diaphoresis. EYES lids/conjunctiva normal. EARS/NOSE/THROAT Mucous membranes moist, nares normal, lips/teeth normal uvula midline without oral pharyngeal erythema, exudate or swelling TMs normal bilaterally. No lymphangitis/lymphedema. HEAD/NECK normocephalic atraumatic, no facial trauma, neck is supple. RESPIRATORY respiratory effort normal, speaks in full sentences, no tripod position, no accessory muscle use. Lungs clear to auscultation without rhonchi, wheezes, rales CARDIAC Regular rate and rhythm, no edema. ABDOMINAL Soft, ND/NT. No evidence of fluid wave. No pulsatile masses on exam, rebound tenderness, Murray sign or pain over Mcburney's point. MUSCLES/EXTREMITIES No abnormal range of motion, no swelling. SKIN Warm, pink and dry. No rashes, dermatoses, petechiae or lesions. NEUROLOGICAL Speech is clear and appropriate. Normal level of consciousness. Gait and coordination are normal. 5/5 strength in all extremities. PSYCH Normal mood and affect. Judgement/competence is appropriate Coding Level of Care Code TCM High MDM <= 7 Days Diagnoses Heart failure with reduced ejection fraction I50.20 Thyroid nodule E04.1 Cerumen impaction H61.20 Assessment & Plan Assessment & Plan (1) Heart failure with reduced ejection fraction: Code(s): I50.20 - Unspecified systolic (congestive) heart failure Category: Medical Plan: - Continue current medications including spironolactone, amiodarone, and furosemide. - Ensure Entresto is obtained from the pharmacy and added to the regimen. - Follow up with compensation consultant on March 15 and primary care physician in May. (2) Thyroid nodule: Code(s): E04.1 - Nontoxic single thyroid nodule Category: Medical Plan: Patient was found to have incidental Thyroid nodule during hospitalization with recommendation for US thryoid. US thyroid ordered. (3) Cerumen impaction: Code(s): H61.20 - Impacted cerumen, unspecified ear Category: Medical Plan: Plan for ear flush in two weeks. Orders: Orders US thyroid 01/13/25 E04.1 - Nontoxic single thyroid nodule Medications: New sacubitril-valsartan 24-26 mg (Entresto) 1 tab PO BID 180 tabs 3RF Discontinued sacubitril-valsartan 24-26 mg (Entresto) Discontinued Reason: Duplicate 1 tab See Protocol PO BID 180 tabs 0RF
--- OUTSIDE RECORDS SUMMARY | 2025-01-14 16:22 | XMS_ITS | Data Portability ---
Author Organization [employer] [facility], [facility] Address [address] [place] [address] Care Team Providers Care Account Services Specialist Name Role Phone HIM CCA OTHER SANTIAGO NOVAK Primary Care Provider Assessment Encounter Date Assessment Date Assessment LastModified by Organization Details LastModified Time 02/10/2024 02/10/2024 I have reviewed and agree with the assessment and plan as documented by the corporate executive. I provided real time medical direction for this encounter and was immediately available to provide additional phone based assistance as needed. History as noted by corporate executive. Pt with history of UTI (most recent with klebsiella, October 2023), as well as urinary symptoms requiring bladder sling procedure in past. Pt reports several weeks to several months of urinary frequency without any dysuria or hematuria. No abdominal or flank pain, no N/V, F/C. On exam, pt appears well, vitals normal. No abdominal tenderness, no CVA tenderness. Urine dip is negative for evidence of UTI hematuria, or glucosuria. Impression: Pt with recent urinary frequency with no other UTI symptoms. Exam normal. Urine dip is negative for UTI or other causes of frequency. No evidence of current UTI. Suspect pt's symptoms may be related to chronic bladder issues. Pt has f/u with her urologist already scheduled for next week. She is instructed to keep this appointment. Pt instructed to seek medical attention right away with any worsening or new symptoms, which are reviewed with her. [email or web address] Not available 02/10/2024 16:54:17 02/26/2024 02/26/2024 Impression: 88yo/f with pmhx of DM, HTN, chronic dysuria and prior UTIs, chronic dizziness, referred for evaluation of urinary symptoms and dizziness. Patient has longstanding history of dizziness, on meclizine, states has been present for many years. Also has frequent urinary symptoms described as overactive bladder with increased frequency. Patient seen by medic in home with family present. They endorse last evening patient had increased urinary frequency, similar to prior episodes of overactive bladder. This AM after not sleeping well states did not feel well, having her chronic dizziness symptoms. For medic in the home patient is awake, alert, in no distress. No associated headache, nausea/vomiting , neurologic symptoms. She ambulates at baseline with assistance of a cane or family, which is what she is able to do today, pt and family feel she is at baseline. Can stand, transfer independently. No associated chest pain, dyspnea, palpitations. No abdominal pain, vomiting, diarrhea. No lower extremity redness, swelling, warmth or asymmetry. She denies other ROS. For medic exam she is neuro intact, moving all extremities equally, speaking clearly. Exam otherwise WNl. Plan: Discussed at length with pt and family, they feel her dizziness is at baseline, no evident signs of CVA or posterior circulation stroke. POC glucose is low 100s. We offered to perform urine testing today, however pt unable to provide a sample for medic during visit. No associated dysuria, flank pain, fevers, or other obvious signs of UTI. I feel given her chronic symptoms patient can followup as an outpatient for UTI testing. Patient and family advised to continue to monitor her symptoms at home, and should she develop any acute worsening or change in symptoms, she would need immediate evaluation which they understand. Again no syncope/presync ope, no other associated symptoms today, I have a lower clinical suspicion for an occult emergency medical condition such as ICH, CVA, cardiogenic syncope, ACS, PE. Primary care, consider followup in 24-48 hours Disposition: We discussed the diagnostic uncertainty of home visits and the risk associated with this. In this case, the patient and I felt this to be an acceptable and reasonable amount of risk given the benefit of avoiding an ED visit. We discussed the need to seek care urgently/emerge ntly in the setting of any new or worsening serious symptoms [email or web address] Not available 02/26/2024 12:15:53 05/12/2024 05/12/2024 I have reviewed and agree with the assessment and plan as documented by the corporate executive. I provided real-time medical direction for this encounter and was immediately available to provide additional phone-based assistance as needed. History as noted in EMR and by corporate executive. I would add / emphasize: Pt seen for dysuria and burning despite vaginal cream from OBGYN. Sxs c/w prior UTI per report. Udip c/w UTI. AVSS and well appearing no flank pain to sugest miguel ángelelo. Will send cx given age, start tx w/ TMP-SMX, and have pt folllow up with primary team. [email or web address] Not available 05/13/2024 14:19:57 12/15/2024 12/15/2024 I provided real -time medical direction via phone for this encounter and was available for additional phone-based assistance as needed. I have reviewed and agree with the Assessment and Plan as documented by the Security Operations Engineer. Patient given the opportunity to ask questions. As per above, patient VSS Per corporate executive on the scene, Please read the corporate executive note for their exam findings. Impression: worsening dizziness, fatigue in the setting of a known anemia, UGIB and still taking NSAIDs Plan: expect call to [facility] via personal car Allergies: Reviewed [email or web address] [id number] Not available 12/15/2024 18:36:32 Plan of Treatment Reminders Order Date Submit Date Provider Last Modified By Organization Details Last Modified Time Details Appointments None recorded. Lab culture, urine 2024 025 CLEMENTINE [facility] (Centralized Electronic Ordering - All Locations), Patient Can Go To The Location Of Their Choice, [facility] 5 10:05:55 urinalysi s, dipstick 2024 025 CLEMENTINE [facility], [address] [place] [address], [id number] 5 18:11:50 glucose, fingersti ck, blood 2023 024 [email or web address] [facility], [address] [place] [address], [id number] 4 11:13:25 urinalysi s, dipstick 2023 024 [email or web address] [facility], [address] [place] [address], [id number] 4 13:26:15 culture, urine 2023 024 CLEMENTINE [facility] (Centralized Electronic Ordering - All Locations), Patient Can Go To The Location Of Their Choice, [id number] 4 12:06:17 urinalysi s, dipstick [address], [id number] 4 16:02:48 BMP, serum or plasma [address], [id number] 4 16:04:07 Referral None recorded. Procedures None recorded. Surgeries None recorded. Imaging None recorded. Medication Orders sulfameth oxazole 800 mg-trimet hoprim 160 mg tablet 2024 025 [facility]acy #[id number], [address] [place] [address], [address], 5 11:12:57 sulfameth oxazole 800 mg-trimet hoprim 160 mg tablet 2024 025 [email or web address] [facility]/Pharmacy #[id number], [address] [place], [address], 5 11:12:55 Bactrim DS 800 mg-160 mg tablet 2023 024 [facility]acy #[id number], [address] [place], [address], 4 11:11:33 Bactrim DS 800 mg-160 mg tablet 2023 024 [email or web address] [facility]armacy #[id number], [address] [place] [address], [address], 4 11:11:31 Patient TargetsNo targets recorded. Patient InstructionsNo instructions recorded. Reason for Referral None Reported. Results Created Date Observation Date Name Description Value Unit Range Abnormal Flag Note LastModifiedBy Organization Detail LastModifiedTime 11/17/19 24 11/20/2023 URINE CULTU RE,CO MPREH ENSIV E urine culture,comp rehensive Final report abnormal Not Available [facility] ([facility]) [address] [facility], [place], [address], 11/20/2023 14:06:38 11/17/19 24 11/20/2023 URINE CULTU RE,CO MPREH ENSIV E result 1 Klebsi misty pneumo niae abnormal Great er than 100,0 00 colon y formi ng units per mL Cefaz jon <=4 ug/mL Cefaz jon with an MIKE <=16 predi cts susce ptibi lity to the oral agent s cefac tai, cefdi marco antonio, cefpo doxim e, cefpr ozil, cefur oxime , cepha lexin , and lorac arbef when used for thera py of uncom plica philip urina ry tract infec tions due to E. coli, Klebs iella pneum oniae , and Prote us mirab ilis. Not Available [facility] ([facility]) [address] [facility], [place], [address], 11/20/2023 14:06:38 11/17/19 24 11/20/2023 URINE CULTU RE,CO MPREH ENSIV E antimicrobia l susceptibili ty Commen t S = Susce ptibl e; I = Inter media te; R = Resis tant P = Posit marilee; N = Negat marilee MICS are expre ssed in micro grams per mL Antib iotic RSLT# 1 RSLT# 2 RSLT# 3 RSLT# 4 Amoxi cilli n/Cla vulan ic Acid S Ampic illin R Cefep mainor S Ceftr iaxon e S Cefur oxime S Cipro floxa jax S Ertap enem S Genta micin S Imipe nem S Levof loxac in S Merop enem S Nitro furan toin I Piper acill in/Ta zobac ortiz S Tetra cycli ne S Tobra mycin S Trime thopr im/Petit lfa S Not Available [facility] ([facility]) [address] [facility], [place], [address], 11/20/2023 14:06:38 05/12/19 25 05/15/2024 URINE CULTU RE,CO MPREH ENSIV E urine culture,comp rehensive Final report abnormal Not Available [facility] ([facility]) [address] [facility], [place], [address], 05/15/2024 12:05:51 05/12/19 25 05/15/2024 URINE CULTU RE,CO MPREH ENSIV E result 1 Candid a albica ns abnormal 2,000 Colon ies/m L Not Available [facility] ([facility]) [address] [facility], [place], [address], 05/15/2024 12:05:51 Result Notes None recorded. Medical Equipment None Reported. Allergies Allergen ID Allergen Name Allergen Category Reaction Reaction Severity Criticality Documentation Date Start Date Code Code System Note Provider Name and Address Organization Details Recorded Time Product containin g penicilli n (product) medicatio n Not available Not available Not available 02/10/2024 [id number] SNOMED Not Available [employer] - [employer] 11:29:56 Medications Name Sig Start Date Stop Date Status Note LastModified by Organization Details LastModified Time losartan 50 mg tablet active Not Available Not Available No t Available carvedilol 6.25 mg tablet active Not Available Not Available Not Available cefuroxime axetil 250 mg tablet active Not Available Not Available No t Available atorvastatin 20 mg tablet active Not Available Not Available Not Available fluconazole 150 mg tablet TAKE 1 TABLET SOON YOU GET THE PRESCRIPTIO N. REPEAT ONCE IN 5 DAYS active Not Available Not Available No t Available tolterodine ER 4 mg capsule,exte nded release 24 hr active Not Available Not Available Not Available gabapentin 400 mg capsule active Not Available Not Available Not Available amlodipine 5 mg tablet active Not Available Not Available No t Available sulfamethoxa zole 800 mg-trimethop rim 160 mg tablet TOME 1 TABLETA POR V A ORAL CADA 12 HORAS POR 5 D active Not Available Not Available No t Available aspirin 81 mg tablet,delay ed release active Not Available Not Available N ot Available tramadol 50 mg tablet active Not Available Not Available No t Available acetaminophe n 500 mg tablet active Not Available Not Available Not Available carvedilol 3.125 mg tablet active Not Available Not Available Not Available OneTouch Ultra Test strips active Not Available Not Available Not Available meclizine 25 mg tablet active Not Available Not Available No t Available nystatin 100,000 unit/gram topical cream PLEASE SEE ATTACHED FOR DETAILED DIRECTIONS active Not Available Not Available N ot Available polymyxin B sulfate 10,000 unit-trimeth oprim 1 mg/mL eye drops active Not Available Not Available Not Available betamethason e dipropionate 0.05 % topical cream active Not Available Not Available Not Available omeprazole 20 mg capsule,josr yed release active Not Available Not Available Not Available polyethylene glycol 3350 17 gram/dose oral powder active Not Available Not Available Not Available fluticasone propionate 50 mcg/actuatio n nasal spray,suspen javier active Not Available Not Available Not Available loratadine 10 mg tablet active Not Available Not Available Not Available Januvia 100 mg tablet active Not Available Not Available No t Available Myrbetriq 50 mg tablet,exten ded release active Not Available Not Available Not Available Comfort EZ Pen [place] 33 gauge x 5/32 active Not Available Not Available Not Available Trulicity 0.75 mg/0.5 mL subcutaneous pen injector active Not Available Not Available Not Available Zoë Spears U-300 Insulin 300 unit/mL (1.5 mL) subcutaneous pen active Not Available Not Available Not Available OneTouch Ultra2 Meter active Not Available Not Available Not Available Comfort Touch Plus Pressure Activated Safety Lancets 30 gauge active Not Available Not Available Not Available Vitals Date Recorded Oxygen saturation Oxygen saturation in Arterial blood by Pulse oximetry Respiratory rate Heart rate Body temperature Systolic And Diastolic Provider Name and Address Organization Details Last Updated DateTime 5 99 % 99 % 18 /min 86 /min 98.2 [degF] 138/82 mm[Hg] Not Available [employer] 5 11:09:02 Date Recorded Respiratory rate Body temperature Heart rate Oxygen saturation Oxygen saturation in Arterial blood by Pulse oximetry Systolic And Diastolic Provider Name and Address Organization Details Last Updated DateTime 4 16 /min 97.5 [degF] 85 /min 98 % 98 % 165/75 mm[Hg] Not Available [employer] 4 10:50:25 Date Recorded Respiratory rate Heart rate Oxygen saturation Oxygen saturation in Arterial blood by Pulse oximetry Body temperature Systolic And Diastolic Provider Name and Address Organization Details Last Updated DateTime 5 16 /min 64 /min 97 % 97 % 97.5 [degF] 142/68 mm[Hg] Not Available [employer] 5 15:20:23 Date Recorded Body temperature Respiratory rate Oxygen saturation Oxygen saturation in Arterial blood by Pulse oximetry Heart rate Systolic And Diastolic Provider Name and Address Organization Details Last Updated DateTime 4 98.1 [degF] 16 /min 98 % 98 % 89 /min 160/88 mm[Hg] Not Available [employer] 4 13:17:17 Date Recorded Body height Body weight Heart rate Oxygen saturation Oxygen saturation in Arterial blood by Pulse oximetry Body temperature Heart rate Respiratory rate Systolic And Diastolic Systolic And Diastolic Provider Name and Address Organization Details Last Updated DateTime 4 160.02 cm 82970.7 6 g 86 /min 98 % 98 % 98.5 [degF] 92 /min 16 /min 143/73 mm[Hg] 156/78 mm[Hg] Not Available [employer] 4 11:04:25 Social History None recorded. Functional Status None recorded. Mental Status None recorded. Family History Nothing Reported. Medical History No medical history recorded. Gynecological HistoryNo gynecological history recorded. Obstetrics History GPAL:G 0 P 0 0 0 0 Past Encounters Encounter ID Performer Location Encounter Start Date Encounter Closed Date Diagnosis/Indication Diagnosis SNOMED-CT Code Diagnosis ICD10 Code Diagnosis IMO Codes Diagnosis Note [id number] Marco Carr MD [facility] - [address] [address] 11/17/2023 10:50:22 11/17/2023 17:16:47 Urinary symptoms 765595064 R39.9 UTI symptoms with positive U/A. 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 Obtained BMP with normal Dog Or Animal Sitter today. Given flank pain and symptoms, will treat with Bactrim (now allergies) . Placed culture order for [facility]. Discussed red flag signs for which to seek higher level of care. [id number] Simba Sifuentes MD [facility] - [address] [address] 02/10/2024 13:17:14 02/10/2024 20:57:37 Increased frequency of urination 282125767 R35.0 [id number] Russell Serra MD [facility] - [address] [address] 02/26/2024 11:04:22 02/26/2024 13:00:19 Dizziness 258812152 R42 [id number] Scott Lawson MD [facility] [address] [place] [address] 05/12/2024 11:08:53 05/13/2024 17:32:30 Urinary symptoms [id number] R39.9 [id number] Sweta Adkins MD [facility] [address] [place] [address] 12/15/2024 15:20:20 12/15/2024 18:47:36 Dizziness 259043220 R42 72774 Anemia 232490073 D64.9 [id number] Health Concerns Section Related Observation LastModified by Organization Detai ls LastModified Time None Recorded Concern Status LastModified by Organization Details LastModified Time None Recorded Advance Directives Directive None Recorded Payers Insurance Date Sequence Insurance Name Policy Number Policy Zamora Covered Member ID Zamora Member ID Guarantor Name 12/15/2024 1 [facility] - DOS ON OR AFTER 2022 - DUAL ELIGIBLE - [employer] AND ONE [employer] (MEDICARE REPLACEMENT/ADV ANTAGE - HMO) Brit Goins [id number] Brit Goins Notes Date Note Type Note Provider Name and Address Organization Details Recorded Time 11/17/2023 text/html ROS as noted in the HPI HPI: Member Senegalese speaking. Daughter calls in with concern for member. Member tested positive for COVID on Saturday is not on any prescribed medication for it. Member could not sleep last night due to urinary frequency and had some hematuria this morning. .................... .................... .................... .................... .................... .................... .................... . CRC Nurse Triage Notes (Jolene Jj): Chief Complaints: UTI/Pyelonephritis PMH: Heart Disease, Diabetes, CHF Other Allergies: Dicloxacillin, IVP dye, Statins Comments: CRC RN did not require any additional information to process this visit. Security Operations Engineer Organization Information for Jett Ojeda Mdundo Legal Name: [facility] Address: [address] [place] [address], [place] [address], Lapel Padder: Usman Moore MD CLIA No.: [id number] Security Operations Engineer POC Test Results from Jett Ojeda Urine Dipstick (10:45:57) Urine leukocytes: 3+ GIGI Urine nitrites: + NIT Urine urobilinogen: - URO Urine protein: 2+ PRO Urine pH: 6.5 pH Urine blood: 1+ BLO Urine specific gravity: 1.010 SG Urine ketones: - KET Urine bilirubin: - MILES Urine glucose: - GLU epoc (11:08:37) pH: 7.42 pH units pCO2: 47.9 mmHg pO2: 15.5 mmHg Na: 140 mmol/L K: 3.9 mmol/L iCa: 1.15 mmol/L Cl: 101 mmol/L TCO2: 31.5 mEq/L Hct: 32 % Hb: 11.0 g/dL Glu: 145 mg/dL Lac: 1.5 mmol/L Cr: 0.7 mg/dL BUN: 12 mg/dL A .................... .................... .................... .................... .................... .................... .................... . Security Operations Engineer Note From Jett Ojeda: Pt reports several days of dysuria, urinary frequency/urgency, weakness and one episode of hematuria this morning. Pt has hx of UTI s , last was approx 2 months ago, unsure which ABX she was treated with. Pt also reports testing positive for covid on Saturday but tested negative yesterday. NKDA. Pt is alert, NAD. VSS. Afebrile. Non focal neuro exam. Normal gait. Lungs CTA. Right side CVA tenderness. Benign ABD exam. No LE edema. UA is indicative of infection. UC sent to [facility]. Unremarkable POC labs, Crea 0.7. Pt treated with Bactrim DS. Pt educated on rx and instructed to stay well hydrated and to f/u with PCP. Red flags reviewed. [facility] Lab Orders: culture, urine: Performed [facility] Medication Orders: Bactrim DS 800 mg-160 mg tablet: Administered .................... .................... .................... .................... .................... .................... .................... . Disposition: Fulfilled Marco Carr MD [address] [place] [address],[address], [place], [address], [employer] 11/17/2023 11:43:32 02/10/2024 text/html ROS as noted in the HPI This was a supervised home visit with corporate executive Adam Cifuentes. [facility] Nurse Triage Notes (Mert Posadas): Reason For Request: Patient cant sleep, feels weak, and has urination problems. Chief Complaints: Urinary symptoms PMH: Coronary Artery Disease, Congestive Heart Failure Comments: Pharmaceutical Compounding Supervisor verified the Pt.'s name//address and phone number. Education provided on the response time and the Pt. was advised to monitor reported s/s and seek emergency treatment if needed. CG reports the pt is feeling unwell with increased weakness and UTI symptoms - Increased frequency/urgency - Denies fever - S/S x 2 days. Wellness visit requested. Security Operations Engineer Organization Information for Adam Cifuentes Legal Name: [employer]. Address: [address] [place] [address], Lapel Padder: Juan TYLER No.: [id number] Security Operations Engineer POC Test Results from Vane[facility]enn[facility] Holbrook CODIE Urine Dipstick (12:56:37) Urine leukocytes: - GIGI Urine nitrites: - NIT Urine urobilinogen: - URO Urine protein: - PRO Urine pH: 6.0 pH Urine blood: - BLO Urine specific gravity: 1.005 SG Urine ketones: - KET Urine bilirubin: - MILES Urine glucose: - GLU .................... .................... .................... .................... .................... .................... .................... . Security Operations Engineer Note From Adam Cifuentes: Dispatched to the call address for the female with frequent urination. Pt states she has had frequent urination for awhile now. She states she has had this issue before and was seen by urology and ended up having bladder mesh placed, things were good for a long while but now they are starting to be the same again. Pt has an apt with urology next week to discuss this issue but wanted to make sure it was not a UTI. Pt denies painful urination, abd or back pain, chest pain, diff breathing or fevers. Pt was found sitting in living room, CAOx4, airway open and patent, breathing non labored, able to speak in full sentences, -JVD, -HEENT, skin PWD with good turgor, abd soft non tender/distended, pupils PERRL, +CMSx4, afebrile, -CVA tenderness, UA (-). [facility] consulted. Pt advised to keep urology apt next week. Red flags discussed. ALL times are approx. .................... .................... .................... .................... .................... .................... .................... . [facility] Consulted: Simba Sifuentes .................... .................... .................... .................... .................... .................... .................... . Disposition: Fulfilled Simba Sifuentes MD [address] [place] [address],[address] [facility], [place], [phone], [employer] 02/10/2024 16:54:30 02/26/2024 text/html ROS as noted in the [facility] CRC Nurse Triage Notes (Lara Gaviria): Chief Complaints: Dizziness, Weakness PMH: Coronary Artery Disease, Congestive Heart Failure, Diabetes Mellitus Type 2, Hypertension Comments: Patient called granddaughter this morning crying stating she has not slept all night. Feeling dizzy since last night. Urinary frequency during the night. Dizziness has been constant. Patient has a prescription for Meclizine, took this morning with no relief. Denies chest pain or shortness of breath. Denies N/V/D. Education provided on the response time and the member was advised to monitor reported s/s and seek emergency treatment if needed. Security Operations Engineer Organization Information for Rodney Angeles Business Legal Name: [employer]. Address: [address] [place] [address] [place] [address], Lapel Padder: Juan Bateman MD STACY No.: [id number] Security Operations Engineer POC Test Results from Rodney Angeles - [facility] Blood Glucose Measurement (11:01:07) Blood Glucose: 140 mg/dL .................... .................... .................... .................... .................... .................... .................... . Security Operations Engineer Note From Rodney Angeles: [facility] Pt's granddaughter called concerned about urinary frequency and some insomnia due to it last night. Upon arrival pt was in the bathroom and but just missed being able to obtain urine specimen. But was able to ambulate into dining room with assist from granddaughter, reported to be consistent with baseline. Pt has some dizziness with standing but that has been occurring for years for which she takes meclizine, also consistent with baseline. V/S taken as listed. Pt afebrile. Pt was unable to provide urine specimen during visit. Consulted with [facility] Dr. Serra who advised pt continue to monitor symptoms. Reviewed red flags for ED. Pt education provided. .................... .................... .................... .................... .................... .................... .................... . [facility] Consulted: Russell Serra .................... .................... .................... .................... .................... .................... .................... . Disposition: Shanel Russell Serra MD [address] [place] [address],[address], [place], [address], [employer] 02/26/2024 12:16:06 05/12/2024 text/html CRC Nurse Triage Notes (Margy Renae - RN): Reason For Request: Pt's granddaughter Cathryn reporting burning with urination, going on 1.5weeks>mbr has urinary incontinence Patient Reports: Painful urination; Inability to fully empty bladder Denies: Unable to void greater than 5 hours Fall or trauma that results in urinary incontinence in the setting of pain Fall or injury that results in incontinence in the absence of pain Lower back pain either unilateral or bilateral, unable to void, painful urination -hematuria Frequent and increased urination with flank pain Painful urination with or without fever Chief Complaints: Urinary symptoms PMH: Coronary Artery Disease, Congestive Heart Failure, Diabetes Mellitus Type 2, Hypertension PMH Reviewed at 05/12/2024:24 Allergies Reviewed at 05/12/2024:24 Comments: Pharmaceutical Compounding Supervisor verified the name//address and phone number. PT has had UTI symptoms for about 1.5 week. She went to her OBGYN last saturday but did not do a UC , they gave her a cream for irritation but she does not have relief. She has burning urination .she denies any abd / back pain. She denies any fever/ chills/ nausea/ vomiting. She is incontinent at baseline, but can urinate on command when needed . She does not feel the urine has an odor or darker in color. She is not on a diuretic , per daughter is not sure about the CHF diagnosis. Education provided on the response time and the Patient was advised to monitor reported s/s and seek emergency treatment if needed Security Operations Engineer Organization Information for Jose Steward Business Legal Name: [employer]. Address: [address] [place] [id number], Lapel Padder: Juan TYLER No.: [id number] Security Operations Engineer POC Test Results from [facility]ward Urine Dipstick (11:02:37) Urine leukocytes: 500+++ GIGI Urine nitrites: - NIT Urine urobilinogen: 0.2-3.5 URO Urine protein: 100++1 PRO Urine pH: 6.5 pH Urine blood: + BLO Urine specific gravity: 1.015 SG Urine ketones: 15+1.5 KET Urine bilirubin: 1+17 MILES Urine glucose: - GLU Attachments uploaded as part of this test result can be found under Documents section. .................... .................... .................... .................... .................... .................... .................... . Security Operations Engineer Note From Jose Steward: Responded to call for an 88 y/o female with concern for UTI. Pt has been complaining of burning and itchy sensation while urinating, with history of past UTI's. Pt looking for assessment and treatment if applicable. Upon arrival, pt found sitting on couch, Senegalese speaking only with pt granddaughter home to translate and relay information to provider. Pt stood up upon arrival of provider and was prepared to give urine sample prior to vital signs, Provider handing pt urine catch basin and sanitizing wipe requesting pt wipe prior to urination for clean catch. Provider learned from pt granddaughter that pt had gone to the [facility] a couple days ago for burning and itching with OB providing pt a cream to manage itchiness. Provider found pt CAOX4, vietnamese speaking only, airway open and patent, no distress noted. Pt ambulatory with no assist. Provider obtained pt PHM and obtained pt Pharmacy information prior to pt completing urination. Provider obtained urine sample for lab sendout and performed urine dip test, recording and sending to [facility]. Provider then obtained vital signs and assessed pt h-t, pt found HEENT normal, -sob, -cp. -td, -jvd -n/v/d, -dizzy. Equal and bilateral chest rise and fall noted, lung sounds clear in all bartholomew. Extremities normal, normal range of motion, no pain noted in head, abdomen, flanks or back. [facility] contacted and assessment discussed. Provider confirmed allergies and pharmacy location, [facility] ordering [id number]/160 mg single dose with more being sent to pharmacy to be administered twice a day until completion. Provider alerted pt and granddaughter of red flags, informed them to complete entire prescription. Provider answered any questions and then left the residence. All times approximate. [facility] Lab Orders: culture, urine: Performed urinalysis, dipstick: Performed [facility] Medication Orders: sulfamethoxazole 800 mg-trimethoprim 160 mg tablet: Administered .................... .................... .................... .................... .................... .................... .................... . [facility] Consulted: Scott Lawson .Sinan................ .................... .................... .................... .................... .................... .................... . Disposition: Fulfilled Scott Lawson MD [address] [facility] [address], [place], [address], [facility] [employer] 05/13/2024 14:20:08 12/15/2024 text/html CRC Nurse Triage Notes (Alicia Marcelo): Reason For Request: dizzy/BP check Patient Reports: Dizziness with positional change Denies: Worst Headache of life New onset of vision loss Sudden onset -unilateral weakness/gait disturbance Fall with head strike and altered LOC New onset of Slurred speech or difficulty finding words Sudden Mental status changes Head pain with fever chills and neck pain Seizure activity Head pain not relieved by medication greater than 8 hours Head pain greater than 8 hours -unrelated to falls or injury Head pain with nausea vomiting Sensitive to light Chief Complaints: Dizziness, Extremity Swelling PMH: Coronary Artery Disease, Congestive Heart Failure, Diabetes Mellitus Type 2, Hypertension PMH Reviewed at 12/15/2024:24 Allergies Reviewed at 12/15/2024:24 Comments: 89 y.o female complains of Dizziness Patients daughter making referral States mom has had increased dizziness today BP 126/64 BS 112 Patient has hx of vertigo and takes meclizine for dizziness and took it this morning and it hasn't helped today. Reported only symptom of note, she was hospitalized 2-3 weeks ago secondary to esophageal stricture, and aspiration pneumonia. was found to have fluid around her heart and she now has in bilateral lower extremity swelling as well. She is currently not on a diuretic according to daughter and no new medications started. Daughter requesting insted assessment I provided information on the mobile health . provider response time and advised the patient and/or caregiver to monitor reported signs and symptoms. I discussed the warning signs of when to seek emergency care. .................... .................... .................... .................... .................... .................... .................... . Security Operations Engineer Note From Adam Cifuentes: Dispatched to the call address for the female with dizziness. Pt states she woke up feeling really dizzy. She does have a Hx of vertigo and took her Meclizine earlier but has not had any relief. She states this is a different type of dizziness from her normal vertigo. DIP FILLER states Pt was in the hospital a few weeks ago and her hemoglobin was 7. Family is unsure what her hemoglobin was when she left the facility and is not sure if they [...] Red flags discussed. ALL times are approx. .................... .................... .................... .................... .................... .................... .................... . [facility] Consulted: Sweta Adkins .................... .................... .................... .................... .................... .................... .................... . Disposition: Fulfilled Sweta Adkins MD [address] [place] [address],[address] [facility], [place], [phone], KENDRA ABBOTT 12/15/2024 18:36:40 OBGyn Episode No OBEpisode recorded.
--- OUTSIDE RECORDS SUMMARY | 2025-01-14 16:22 | XMS_ITS | Clinical Summary ---
Author Organization [email or web address] Address [address] [facility] [facility] [address] [place] [address] Care Team Providers Care Laserist Name Role Phone Unavailable Primary Care Provider [...] patient's age to complete this topic Insurance [facility] RES[employer] OPT[employer] (HMO D-SNP) CLAUDIA STAPLES [id number]
== END 2025-01-14 14:05 | disposition home or self-care (01) ==
LOC: HO.HMCH 13:04
PROVIDERS: PCP Internal Medicine; Visit Provider Internal Medicine
DX: I50.20 Unspecified systolic (congestive) heart failure (principal); E04.1 Nontoxic single thyroid nodule; H61.20 Impacted cerumen, unspecified ear

== ENCOUNTER → 2025-01-14 13:04 | Outpatient (BNVA) | payer OTHER, SELFPAY | PROVIDERS: PCP Internal Medicine; Visit Provider Internal Medicine | DX: E04.1 Nontoxic single thyroid nodule (principal); I50.20 Unspecified systolic (congestive) heart failure; H61.20 Impacted cerumen, unspecified ear | CPT/HCPCS: 99495 ==

== ENCOUNTER 2025-01-28 10:15 | Outpatient (AMB) | payer OTHER, SELFPAY ==
--- OUTSIDE RECORDS SUMMARY | 2025-01-24 23:59 | XMS_ITS | Continuity of Care Document ---
Author Organization [facility] Address [address] [place] [address]- Care Team Providers Care Cement Car Dumper Name Role Phone Augusta TEJADA, Rico Gallegos Primary Care Physician Encounter [facility] Date(s): 12/25/24 - 01/24/25 [facility] [address] [place], [place] [address] Attending Physician: Geoffrey Martinez Admitting Physician: Geoffrey Martinez Referring Physician: AdmGeoffrey lozano Encounter Type: Triage Allergies, Adverse Reactions, Alerts Substance Criticality Severity Reaction Reaction Severity Status Contrast Dye Tachycardia Activ e Medications Aspirin Enteric Coated 81 mg oral delayed release tablet 0 Refills, Maintenance, 01/01/25 9:31:00 AM EDT, Partial fill upon patient request if the prescription is for a schedule II opioid drug. Start Date: 01/01/25 Status: Ordered Medication Dispense Status: Completed Total Allowed Fills: 1 Fills Dispensed: 0 atorvastatin 10 mg oral tablet 1 tablet = 10 mg, By Mouth, Daily, # 30 tablet, 0 Refills, Maintenance, 10/21/24 11:59:00 AM EDT, Partial fill upon patient request if the prescription is for a schedule II opioid drug. Start Date: 10/21/24 Status: Ordered Medication Dispense Status: Completed Quantity: 30.0 Unit: tablet Total Allowed Fills: 1 Fills Dispensed: 0 Carvedilol By Mouth, Refills 0, Maintenance, 10/21/24 11:59:00 AM EDT, Partial fill upon patient request if theprescription is for a schedule II opioid drug. Start Date: 10/21/24 Status: Ordered Medication Dispense Status: Completed Total Allowed Fills: 1 Fills Dispensed: 0 estradiol 0.1 mg/g vaginal cream See Instructions, 1 gram vaginally every night for two weeks then twice weekly use with enclosed calibrated applicator as directed. wash applicator with mild soap/warm water after use., # 42.5 Gm, 6 Refills, Maintenance, 10/21/24 11:09:00 AM EDT, [facility], Partial fill upon patient request if the prescription is for a schedule II opioid drug., 76.3, kg, 10/21/24 10:41:00 EDT, Dry Weight Start Date: 10/21/24 Status: Ordered Medication Dispense Status: Completed Quantity: 42.5 Unit: g Total Allowed Fills: 7 Fills Dispensed: 0 furosemide 20 mg oral tablet 1, capsule, By Mouth, Once, # 1 tablet, Refills 0, Maintenance, 01/01/25 9:31:00 AM EDT, Partial fill upon patient request if the prescription is for a schedule II opioid drug. Start Date: 01/01/25 Status: Ordered Medication Dispense Status: Completed Quantity: 1.0 Unit: tablet Total Allowed Fills: 1 Fills Dispensed: 0 gabapentin 400 mg oral capsule 400 mg, 1, capsule, By Mouth, 2 times a day, # 60, Refills 0, Maintenance, 12/05/18 3:00:32 PM EDT Start Date: 12/05/18 Status: Ordered Medication Dispense Status: Completed Quantity: 60.0 Unit: Total Allowed Fills: 1 Fills Dispensed: 0 Losartan By Mouth, Daily, 0 Refills, Maintenance, 12/28/24 9:53:00 AM EDT, Partial fill upon patient request if the prescription is for a schedule II opioid drug. Start Date: 12/28/24 Status: Ordered Medication Dispense Status: Completed Total Allowed Fills: 1 Fills Dispensed: 0 meclizine 25 mg oral tablet 1 tablet = 25 mg, By Mouth, 3 times a day, PRN for dizziness, # 30 tablet, 0 Refills, Maintenance, 12/03/18 6:19:24 PM EDT, Tablet Start Date: 12/03/18 Status: Ordered Medication Dispense Status: Completed Quantity: 30.0 Unit: tablet Total Allowed Fills: 1 Fills Dispensed: 0 mirabegron 50 mg oral tablet, extended release 1 tablet = 50 mg, By Mouth, Daily, # 30 tablet, 11 Refills, Maintenance, 10/21/24 11:09:00 AM EDT, [facility], Partial fill upon patient request if the prescription is for a schedule II opioid drug., 76.3, kg, 10/21/24 10:41:00 EDT, Dry Weight Start Date: 10/21/24 Status: Ordered Medication Dispense Status: Completed Quantity: 30.0 Unit: tablet Total Allowed Fills: 12 Fills Dispensed: 0 omeprazole 20 mg oral delayed release tablet 1 tablet = 20 mg, By Mouth, Daily in AM, # 120 tablet, 0 Refills, Maintenance, 12/05/18 4:02:17 PM EDT, [facility] Tablet Start Date: 12/05/18 Status: Ordered Medication Dispense Status: Completed Quantity: 120.0 Unit: tablet Total Allowed Fills: 1 Fills Dispensed: 0 Toujeo Max SoloStar 300 units/mL subcutaneous solution = 20 units, Subcutaneous Infusion, Daily in AM, 0 Refills, Maintenance, 07/19/20 12:48:00 PM EDT, Partial fill upon patient request if the prescription is for a schedule II opioid drug. Start Date: 07/19/20 Status: Ordered Medication Dispense Status: Completed Total Allowed Fills: 1 Fills Dispensed: 0 Trulicity Pen 0.75 mg/0.5 mL subcutaneous solution = 0.75 mg, Subcutaneous Infusion, Every Saturday, 0 Refills, Maintenance, 07/19/20 12:47:00 PM EDT, Partial fill upon patient request if the prescription is for a schedule II opioid drug. Start Date: 07/19/20 Status: Ordered Medication Dispense Status: Completed Total Allowed Fills: 1 Fills Dispensed: 0 Problem List Condition Confirmation Course Effective Dates Status H ealth Status Informant Cystocele Confirmed Active Diabetes mellitus Confirmed Active GERD - Gastro-esophageal reflux disease Confirmed Active Hypertension Confirmed Active Irritable bowel syndrome Confirmed Active Neuropathy Confirmed Active Venous insufficiency of leg Confirmed Active Social History Social History Type Response Sexual Sexually involved in last 6 months: No. Smoking Status Former smoker entered on: 10/13/14 Sex Sex Representation Female (finding) Implantable Device List Procedure Provider Procedure Date Device Type Site Transobturator Midurethral Sling With Jessica Walker MD 03/06/21 Unknown Urethra Device Identifier Serial Number Lot or Batch Number Manufacturing Date Expiration Date Distinct Identification Code MRI Safety Implantable Status Assigning Authority Unknown [id number] 10-30 [id number] Unknown 11/24/23 Unknown Unknown Active Unknown Patient Care team information Care Team Personnel Name: Merced Phoenix RN Position: S RN Member Role: Primary Care Nurse Name: Eunice Real RN Position: [facility] Onco RN Member Role: Primary Care Nurse Name: Rico Deras MD Position: Reference Physician Member Role: PCP Address: [address] [place] [address] [address] [place] [address] Telecom: Care Team Related Persons Name: SHIREEN STEVENS Name: LEILANI LOVE Insurance Providers Guarantor name: [employer] Health Plan Information #: 1 Payer: [employer] Payer Identifier: [employer] Member Number: [id number] Group Number: [id number] Subscriber Identifier: NA Relationship to Subscriber: self Coverage Type: Medicare Managed Care (Includes Medicare Advantage Plans) Coverage Verification Date: [employer] Telecom: NA Address:
--- NOTE | 2025-01-28 10:22 | A.OFFPC_ITS ---
Vital Signs 01/28/25 10:23 Height 5 ft 1 in Weight 151 lb 3.794 oz BMI 28.6 BP 108/62 Blood Pressure Location Lt brachial Position Sitting Pulse 62 Pulse Source Pulse Oximeter Temp 97.3 F Temp Source Temporal Artery Scan Pulse Oximetry (%) 98 Oxygen Delivery Method Room Air Intake Visit Reasons: Ear flush. Accompanied by: Grand Child Allergies Iodinated Contrast Media (IV CONTRAST) Allergy (Unknown, Verified 01/28/25 10:27) UNKNOWN Medication List - Last Reconciled 01/28/25 by Karyn Dunham MD [Adult pull ups As directed] amiodarone Take 2 tbas twice daily for 12 more days, then after take 1 tab tab daily Held on 01/25/25. Instructions: Doctor's Order aspirin (Adult Aspirin Regimen) 81 mg PO DAILY atorvastatin 20 mg PO BEDTIME [Bed bar As directed] blood pressure monitor (Blood Pressure Kit) As directed blood sugar diagnostic ([facility] Health AllianceTouch Ultra Test strips) test 3 times per day blood-glucose meter ([employer] Ultra2 Meter) test 3 times daily [body wipes As directed] carbamide peroxide 6.5% (Debrox) 5 drps otic (ears) DAILY 4 days carvedilol 6.25 mg PO BID ciprofloxacin HCl 0.2% 5 drps otic (ears) BID 5 days commode (bedside commode) As directed diaper,brief,adult,disposable As directed size mediun dicyclomine 10 mg PO BID PRN [Disposable bed pads As directed] [Disposable tiesha-pads As directed] dulaglutide (Trulicity) 0.75 mg subcut MO empagliflozin (Jardiance) 10 mg PO DAILY epinephrine (EpiPen 2-Mariano) 0.3 mg (0.3 mL) IM Q10M PRN estradiol 0.01%(0.1mg/gram) 1 appl vaginal BEDTIME furosemide 40 mg See Protocol PO DAILY gabapentin 100 mg PO BID insulin glargine U-300 conc (T[employer] SoloStar U-300 Insulin) 20 units (0.0667 mL) subcut DAILY lancets ([facility] AllianceTouch UltraSoft 2 Lancet) test 3 times per day lidocaine 4% 1 patch topical DAILY PRN meclizine (Motion Sickness Relief (meclizine)) 25 mg PO DAILY PRN mirabegron ER (Myrbetriq) 50 mg PO DAILY omeprazole 20 mg PO DAILY@0630 [Raised toilet seat with arms As directed] sacubitril-valsartan 24-26 mg (Entresto) 1 tab PO BID spironolactone 25 mg See Protocol PO DAILY tramadol 50 mg PO BID PRN Tobacco use date assessed: 01/28/25 Fall risk assessment: 1 Fall in past year Last assessed Fall Risk: 01/28/25 Dental Screening Dental Screen Date: 01/28/25 Did you have a dental visit in the last 12 months?: Yes Did you have a dental problem in the last 6 months where you did not have access to dental care?: No Was dental information given to patient?: Patient has dentist HPI HPI Comments History of Present Illness Details The patient is an 89-year-old female presenting for bilateral ear irrigation for cerumen removal. She does not speak [place]. The patient used ear drops prior to the visit. [facility] Medical History Congestive heart failure Heart failure with reduced ejection fraction Anemia Prolapsed hemorrhoids Diabetic nephropathy with proteinuria Hyperlipidemia HTN (hypertension) IBS (irritable bowel syndrome) Prolapsed internal hemorrhoids Chronic kidney disease, stage III (moderate) Obesity (BMI 30-39.9) Mixed hyperlipidemia Hypertensive heart disease Left bundle branch block Bladder prolapse Diabetes mellitus GERD (gastroesophageal reflux disease) Surgical History History of bladder repair surgery History of ERCP History of bilateral cataract extraction History of cholecystectomy History of excision of mass History of colonoscopy History of ankle surgery Family History Father No problems noted. Mother No problems noted. Family/Other Lung cancer Esophagus cancer Other Mental health disorder Substance use disorder Social History Household Members: Family and Children Household Members Other:: children Housing: House Do you presently have visiting nurse or other home services: No Alcohol intake: never Patient Tobacco Use Status: Former Tobacco user e-Cigarette/Vaping Use: Never Used Second Hand Smoke Exposure: No Advance Directives Date on File: 04/19/23 service: No Current occupational status: disabled Cognitive needs: Yes (cane/walker) Hearing needs: No Vision needs: Yes (glasses) Questionnaire PHQ-9 Over the last 2 weeks, how often have you been bothered by any of the following problems? 1. Little interest or pleasure in doing things: not at all 2. Feeling down, depressed, or hopeless: not at all 3. Trouble falling or staying asleep, or sleeping too much: several days 4. Feeling tired or having little energy: several days 5. Poor appetite or overeating: not at all 6. Feeling bad about yourself - or that you are a failure or have let yourself or your family down: not at all 7. Trouble concentrating on things, such as reading the newspaper or watching television: not at all 8. Moving or speaking so slowly that other people could have noticed. Or the opposite - being so fidgety or restless that you have been moving around a lot more than usual: not at all 9. Thoughts that you would be better off or of hurting yourself in some way: not at all Total score: 2 Source: Developed by Drs. Vu Harris, Huma Roque, Ronak Nichols and colleagues, with an educational yury from [employer]. Thrive Questionnaire Date Thrive assessed: 01/08/25 I am a: Parent/Caregiver What is your living situation today?: I have a steady place to live Within the past 12 months, did the food you bought not last and you didn't have the money to get more?: Never true Within the past 12 months, did you worry whether your food would run out before you got money to buy more?: Never true Do you have trouble paying for medicines?: No Do you have trouble getting transportation to medical appointments?: No Do you have trouble paying your heating and electricity bill?: No Do you have trouble taking care of your child, family member or friend?: No Do you have trouble with day-to-day activities such as bathing, preparing meals, shopping, managing finances, etc.?: Yes Are you currently unemployed and looking for a job?: No Are you interested in more education?: No Please select the resources that you would like help with: None Currently or been in a relationship where the following occur: I choose not to answer THRIVE Score: 0 AUDIT C Alcohol Use Questionnaire (AUDIT-C) 1. How often do you have a drink containing alcohol?: Never 3. How often do you have six or more drinks on one occasion?: Never Total Score: 0 MENDEL-7 AMB Questionnaire MENDEL-7 Date MENDEL - 7 assessed: 12/11/24 Feeling nervous, anxious, or on edge: 0 = Not at all Not being able to stop or control worryin = Not at all Worrying too much about different things: 0 = Not at all Trouble relaxin = Not at all Being so restless that it is hard to sit still: 0 = Not at all Becoming easily annoyed or irritable: 0 = Not at all Feeling afraid as if something awful might happen: 0 = Not at all Total MENDEL-7 score (0-4 normal; 5-9 mild; 10-14 moderate; 15-21 severe): 0 Source: Developed by Drs. Vu Harris, Huma Roque, Ronak Nichols and colleagues, with an educational yury from [employer]. Physical exam (Primary Care) Vital Signs: Last Vital Signs Temp 97.3 F 01/28/25 10:23 Pulse 62 01/28/25 10:23 BP 108/62 01/28/25 10:23 Pulse Ox 98 01/28/25 10:23 Oxygen Delivery Method Room Air 01/28/25 10:23 BMI result Body Mass Index 28.6 Tobacco/Smoking Status: Tobacco use Status Tobacco use date assessed 01/28/25 01/28/25 10:28 Patient Tobacco Use Status Former Tobacco user 01/28/25 10:22 e-Cigarette/Vaping Use Never Used 01/28/25 10:22 PHQ-9: PHQ-9 Score PHQ-9: Total score 2 01/28/25 10:22 Thrive Assessment: Date of Thrive Assessment Date Thrive assessed 01/08/25 01/28/25 10:22 Currently or been in a relationship where the following occur: I choose not to answer Const Other: Pertinent findings are in BOLD GENERAL APPEARANCE NAD, activity normal for age, well developed/ well nourished, no cyanosis, pallor, or diaphoresis. EYES lids/conjunctiva normal. EARS/NOSE/THROAT Mucous membranes moist, nares normal, lips/teeth normal uvula midline without oral pharyngeal erythema, exudate or swelling TMs normal bilaterally. No lymphangitis/lymphedema. HEAD/NECK normocephalic atraumatic, no facial trauma, neck is supple. RESPIRATORY respiratory effort normal, speaks in full sentences, no tripod position, no accessory muscle use. Lungs clear to auscultation without rhonchi, wheezes, rales CARDIAC Regular rate and rhythm, no edema. ABDOMINAL Soft, ND/NT. No evidence of fluid wave. No pulsatile masses on exam, rebound tenderness, Murray sign or pain over Mcburney's point. MUSCLES/EXTREMITIES No abnormal range of motion, no swelling. SKIN Warm, pink and dry. No rashes, dermatoses, petechiae or lesions. NEUROLOGICAL Speech is clear and appropriate. Normal level of consciousness. Gait and coordination are normal. 5/5 strength in all extremities. PSYCH Normal mood and affect. Judgement/competence is appropriate Ears: ear canal redness bilaterally. Minimal cerumen remaining after procedure. Office Procedures Cerumen Removal From which ear canal was the cerumen removed: bilateral Removal: irrigation, otoscope w/curette and cerumen loop/spoon Notes: patient tolerated procedure well [id number] Irrigation/Lavage Cerumen Removal From which ear canal was the cerumen removed: bilateral Removal: irrigation, otoscope w/curette and cerumen loop/spoon Notes: patient tolerated procedure well [id number] Wax Removal by Spoon/Curette Coding Level of Care Code Est Pt Level 4 (19646) Diagnoses Bilateral impacted cerumen H61.23 Laterality: bilateral Acute otitis externa of both ears, unspecified type H60.503 Otitis externa type: unspecified type Chronicity: acute Laterality: bilateral CPT Codes Office Procedure - CPT: 06768-Wle Irrigation/Lavage ([id number]) Office Procedure - CPT: 06332-Rui Wax Removal by Spoon/Curette ([id number]) Time Spent (min) 40 Assessment & Plan Assessment & Plan (1) Cerumen impaction: Code(s): H61.20 - Impacted cerumen, unspecified ear Category: Medical Qualifiers: Laterality: bilateral Qualified Code(s): H61.23 - Impacted cerumen, bilateral Plan: - The patient's pre-visit use of ear drops was noted to be effective, as otoscopic examination revealed not much cerumen. - Bilateral ear irrigation was performed, removing some cerumen. - Advised the patient to continue using Debrox to get the rest of the cerumen out. (2) Otitis externa: Code(s): H60.90 - Unspecified otitis externa, unspecified ear Category: Medical Qualifiers: Otitis externa type: unspecified type Chronicity: acute Laterality: bilateral Qualified Code(s): H60.503 - Unspecified acute noninfective otitis externa, bilateral Plan: Ciprofloxacin eardrops bilaterally for 5 days. Plan I performed a bilateral ear irrigation for the patient. I noted that not much cerumen was visible upon otoscopic examination, likely because the ear drops used before the visit had been effective. I acknowledged the patient's report of feeling dizzy after the procedure. Medications: New ciprofloxacin HCl 0.2% 5 drps otic (ears) BID 14 ea 0RF 5 days [Bed bar] As directed 1 ea 0RF
[2025-01-28 10:23] VITALS: BP 108/62; PULSE 62; TEMP 36.3; O2SAT 98; BMI 28.6
--- OUTSIDE RECORDS SUMMARY | 2025-01-28 12:23 | XMS_ITS | Clinical Summary ---
Author Organization [employer] Address [address] [place] [address] Care Team Providers Care Computational Chemist Name Role Phone Unavailable Primary Care Provider [...] patient's age to complete this topic Insurance [facility] [employer] (HMO D-SNP) [place]IA [employer]LES [id number]
--- OUTSIDE RECORDS SUMMARY | 2025-01-28 12:24 | XMS_ITS | Data Portability ---
Author Organization [facility] [facility], [facility] Address [address] [place] [address] Care Team Providers Care School Lunch Monitor Name Role Phone HIM CCA OTHER SANTIAGO NOVAK Primary Care Provider Assessment Encounter Date Assessment Date Assessment LastModified by Organization Details LastModified Time 02/10/2024 02/10/2024 I have reviewed and agree with the assessment and plan as documented by the africana studies professor. I provided real time medical direction for this encounter and was immediately available to provide additional phone based assistance as needed. History as noted by africana studies professor. Pt with history of UTI (most recent [...] of any new or worsening serious symptoms [email or web address] Not available 02/26/2024 12:15:53 05/12/2024 05/12/2024 I have reviewed and agree with the assessment and plan as documented by the africana studies professor. I provided real-time medical direction for this encounter and was immediately available to provide additional phone-based assistance as needed. History as noted in EMR and by africana studies professor. I would add / emphasize: Pt seen [...] Assessment and Plan as documented by the Habilitation Training Specialist. Patient given the opportunity to ask questions. As per above, patient VSS Per africana studies professor on the scene, Please read the africana studies professor note for their exam findings. Impression: worsening dizziness, fatigue in the setting of a known anemia, UGIB and still taking NSAIDs Plan: expect call to [facility] via personal car Allergies: Reviewed [place] [id number] Not available 12/15/2024 18:36:32 Plan of Treatment Reminders Order Date Submit Date Provider Last Modified By Organization Details Last Modified Time Details Appointments None recorded. Lab culture, urine 2024 025 CLEMENTINE [facility] (Centralized Electronic Ordering - All Locations), Patient Can Go To The Location Of Their Choice, [facility] 5 10:05:55 urinalysi s, dipstick [address] [facility], [address] [place] [address], [id number] 5 18:11:50 glucose, fingersti ck, blood [email or web address] [facility], [address] [place] [address], [id number] 4 11:13:25 urinalysi s, dipstick [email or web address] [facility], [address] [place] [address], [id number] 4 13:26:15 culture, urine 2023 024 CLEMENTINE [facility] (Centralized Electronic Ordering - All Locations), Patient Can Go To The Location Of Their Choice, [id number] 4 12:06:17 urinalysi s, dipstick [address], [id number] 4 16:02:48 BMP, serum or plasma [address], [id number] 4 16:04:07 Referral None recorded. Procedures None recorded. Surgeries None recorded. Imaging None recorded. Medication Orders sulfameth oxazole 800 mg-trimet hoprim 160 mg tablet 2024 025 [facility] #[id number], [address] [place] [address], [address], 5 11:12:57 sulfameth oxazole 800 mg-trimet hoprim 160 mg tablet 2024 025 [email or web address] [facility]armacy #[id number], [address] [place], [address], 5 11:12:55 Bactrim DS 800 mg-160 mg tablet 2023 024 [facility] #[id number], [address] [place], [address], 4 11:11:33 Bactrim DS 800 mg-160 mg tablet 2023 024 [email or web address] [facility] #[id number], [address] [place] [address], [address], 4 11:11:31 Patient TargetsNo targets recorded. Patient InstructionsNo instructions recorded. Reason for Referral None Reported. Results Created Date Observation Date Name Description Value Unit Range Abnormal Flag Note LastModifiedBy Organization Detail LastModifiedTime 11/17/19 24 11/20/2023 URINE CULTU RE,CO MPREH ENSIV E urine culture,comp rehensive Final report abnormal Not Available [facility] ([facility]) [address] [facility], [place], [address], 11/20/2023 14:06:38 11/17/19 24 11/20/2023 URINE CULTU [...] Prote us mirab ilis. Not Available [facility] ([facility]) [address] [facility], [place], [address], 11/20/2023 14:06:38 11/17/19 24 11/20/2023 URINE CULTU [...] thopr im/Petit lfa S Not Available [facility] ([facility]) [address] [facility], [place], [address], 11/20/2023 14:06:38 05/12/19 25 05/15/2024 URINE CULTU RE,CO MPREH ENSIV E urine culture,comp rehensive Final report abnormal Not Available [facility] ([facility]) [address] [facility], [place], [address], 05/15/2024 12:05:51 05/12/19 25 05/15/2024 URINE CULTU RE,CO MPREH ENSIV E result 1 Candid a albica ns abnormal 2,000 Colon ies/m L Not Available [facility] ([facility]) [address] [facility], [place], [address], 05/15/2024 12:05:51 Result Notes None recorded. Medical Equipment None Reported. Allergies Allergen ID Allergen Name Allergen Category Reaction Reaction Severity Criticality Documentation Date Start Date Code Code System Note Provider Name and Address Organization Details Recorded Time Product containin g penicilli n (product) medicatio n Not available Not available Not available 02/10/2024 [id number] [id number] SNOMED Not Available [employer] - production [...] Not Available Not Available Comfort EZ Pen [place] 33 gauge x 5/32 active Not Available [...] /min 98.2 [degF] 138/82 mm[Hg] Not Available [employer] 5 11:09:02 Date Recorded Respiratory rate Body temperature Heart rate Oxygen saturation Oxygen saturation in Arterial blood by Pulse oximetry Systolic And Diastolic Provider Name and Address Organization Details Last Updated DateTime 4 16 /min 97.5 [degF] 85 /min 98 % 98 % 165/75 mm[Hg] Not Available [employer] 4 10:50:25 Date Recorded Respiratory rate Heart rate Oxygen saturation Oxygen saturation in Arterial blood by Pulse oximetry Body temperature Systolic And Diastolic Provider Name and Address Organization Details Last Updated DateTime 5 16 /min 64 /min 97 % 97 % 97.5 [degF] 142/68 mm[Hg] Not Available [employer] - production 5 15:20:23 Date Recorded Body temperature Respiratory rate Oxygen saturation Oxygen saturation in Arterial blood by Pulse oximetry Heart rate Systolic And Diastolic Provider Name and Address Organization Details Last Updated DateTime 4 98.1 [degF] 16 /min 98 % 98 % 89 /min 160/88 mm[Hg] Not Available [employer] - production 4 13:17:17 Date Recorded Body height Body weight Heart rate Oxygen saturation Oxygen saturation in Arterial blood by Pulse oximetry Body temperature Heart rate Respiratory rate Systolic And Diastolic Systolic And Diastolic Provider Name and Address Organization Details Last Updated DateTime 4 160.02 cm 40082.7 6 g 86 /min 98 % 98 % 98.5 [degF] 92 /min 16 /min 143/73 mm[Hg] 156/78 mm[Hg] Not Available [employer] 4 11:04:25 Social History None recorded. Functional Status None recorded. Mental Status None recorded. Family History Nothing Reported. Medical History No medical history recorded. Gynecological HistoryNo gynecological history recorded. Obstetrics History GPAL:G 0 P 0 0 0 0 Past Encounters Encounter ID Performer Location Encounter Start Date Encounter Closed Date Diagnosis/Indication Diagnosis SNOMED-CT Code Diagnosis ICD10 Code Diagnosis IMO Codes Diagnosis Note [id number] Marco Carr MD Main - [address] [address] 11/17/2023 10:50:22 11/17/2023 17:16:47 Urinary symptoms 778191524 R39.9 UTI symptoms with positive U/A. 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 Obtained BMP with normal Rough Rounder today. Given flank pain and symptoms, will treat with Bactrim (now allergies) . Placed culture order for [facility]. Discussed red flag signs for which to seek higher level of care. [id number] Simba Sifuentes MD [facility] - [address] [phone] 02/10/2024 13:17:14 02/10/2024 20:57:37 Increased frequency of urination [id number] R35.0 [id number] Russell Serra MD [facility] - [address] [address] 02/26/2024 11:04:22 02/26/2024 13:00:19 Dizziness [id number] R42 [id number] [facility] [address] [place] [phone] 05/12/2024 11:08:53 05/13/2024 17:32:30 Urinary symptoms [id number] R39.9 [id number] Sweta Adkins MD [facility] [address] [place] [phone] 12/15/2024 15:20:20 12/15/2024 18:47:36 Dizziness 995013332 R42 24018 Anemia 775522698 D64.9 [id number] Health Concerns Section Related Observation LastModified by Organization Detai ls LastModified Time None Recorded Concern Status LastModified by Organization Details LastModified Time None Recorded Advance Directives Directive None Recorded Payers Insurance Date Sequence Insurance Name Policy Number Policy Zamora Covered Member ID Zamora Member ID Guarantor Name 01/21/2025 1 [facility] - DOS ON OR AFTER 2022 - DUAL ELIGIBLE - [employer] OPTIONS AND ONE CARE (MEDICARE REPLACEMENT/ADV ANTAGE - HMO) Brit Goins [id number] Brit Goins Notes Date Note Type Note Provider Name and Address Organization Details Recorded Time 11/17/2023 text/html ROS as noted in the HPI HPI: Member Lao speaking. Daughter calls in with concern for [...] any additional information to process this visit. Habilitation Training Specialist Organization Information for Jett Ojeda [employer] Legal Name: [facility] Address: [address] [place] [address], [place] [address], Bag Grader: Usman Moore MD CLIA No.: [id number] Habilitation Training Specialist POC Test Results from Jett Ojeda Urine [...] .................... .................... .................... .................... .................... .................... . Habilitation Training Specialist Note From Jett Ojeda: Pt reports several [...] to f/u with PCP. Red flags reviewed. [facility] Lab Orders: culture, urine: Performed [facility] Medication Orders: Bactrim DS 800 mg-160 mg tablet: Administered .................... .................... .................... .................... .................... .................... .................... . Disposition: Fulfilled Marco Carr MD [address] [place] [address],[address], [place], [phone], Z[employer]ora 11/17/2023 11:43:32 02/10/2024 text/html ROS as noted in the HPI This was a supervised home visit with africana studies professor Adam Cifuentes. [facility] Nurse Triage Notes (Mert Posadas): Reason For Request: Patient cant sleep, feels weak, and has urination problems. Chief Complaints: Urinary symptoms PMH: Coronary Artery Disease, Congestive Heart Failure Comments: Floor Helper verified the Pt.'s name//address and phone number. Education provided on the response time and the Pt. was advised to monitor reported s/s and seek emergency treatment if needed. CG reports the pt is feeling unwell with increased weakness and UTI symptoms - Increased frequency/urgency - Denies fever - S/S x 2 days. Wellness visit requested. Habilitation Training Specialist Organization Information for Adam Cifuentes Legal Name: [employer]. Address: [address] [place] [address], Bag Grader: Juan TYLER No.: [id number] Habilitation Training Specialist POC Test Results from VaneLennyerika Holbrook CODIE Urine Dipstick (12:56:37) Urine leukocytes: - GIGI Urine nitrites: - NIT Urine urobilinogen: - URO Urine protein: - PRO Urine pH: 6.0 pH Urine blood: - BLO Urine specific gravity: 1.005 SG Urine ketones: - KET Urine bilirubin: - MILES Urine glucose: - GLU .................... .................... .................... .................... .................... .................... .................... . Habilitation Training Specialist Note From Adam Cifuentes: Dispatched to the [...] .................... .................... .................... .................... .................... .................... . [facility] Consulted: Simba Sifuentes .................... .................... .................... .................... .................... .................... .................... . Disposition: Fulfilled Simba Sifuentes MD [address] [place] [address],[address] [facility] [address], [place], [phone], Zuora 02/10/2024 16:54:30 02/26/2024 text/html ROS as noted in the [facility] CRC Nurse Triage Notes (Lara Gaviria): [...] s/s and seek emergency treatment if needed. Habilitation Training Specialist Organization Information for Rodney Angeles Business Legal Name: [employer]. Address: [address] [place] [address] [place] [address], Bag Grader: Juan Bateman MD STACY No.: [id number] Habilitation Training Specialist POC Test Results from Rodney Angeles - [facility] Blood Glucose Measurement (11:01:07) Blood Glucose: 140 mg/dL .................... .................... .................... .................... .................... .................... .................... . Habilitation Training Specialist Note From Rodney Angeles: [facility] Pt's granddaughter called [...] provide urine specimen during visit. Consulted with [facility] Dr. Serra who advised pt continue to monitor symptoms. Reviewed red flags for ED. Pt education provided. .................... .................... .................... .................... .................... .................... .................... . [facility] Consulted: Russell Serra .................... .................... .................... .................... .................... .................... .................... . Disposition: Shanel Russell Serra MD [address] [place] [address],[address], [place], [address], Zuora 02/26/2024 12:16:06 05/12/2024 text/html CRC Nurse Triage [...] at 05/12/2024:24 Allergies Reviewed at 05/12/2024:24 Comments: Floor Helper verified the name//address and phone number. PT [...] s/s and seek emergency treatment if needed Habilitation Training Specialist Organization Information for Jose Steward Business Legal Name: [employer]. Address: [address] [place] [address], Bag Grader: Juan YTLER No.: [id number] Habilitation Training Specialist POC Test Results from Jose Steward Urine [...] .................... .................... .................... .................... .................... .................... . Habilitation Training Specialist Note From Jose Steward: Responded to call for an 88 y/o female with concern for UTI. Pt has been complaining of burning and itchy sensation while urinating, with history of past UTI's. Pt looking for assessment and treatment if applicable. Upon arrival, pt found sitting on couch, Lao speaking only with pt granddaughter home to translate and relay information to provider. Pt stood up upon arrival of provider and was prepared to give urine sample prior to vital signs, Provider handing pt urine catch basin and sanitizing wipe requesting pt wipe prior to urination for clean catch. Provider learned from pt granddaughter that pt had gone to the [facility] a couple days ago for burning and itching with OB providing pt a cream to manage itchiness. Provider found pt CAOX4, argentine speaking only, airway open and patent, no distress noted. Pt ambulatory with no assist. Provider obtained pt PHM and obtained pt Pharmacy information prior to pt completing urination. Provider obtained urine sample for lab sendout and performed urine dip test, recording and sending to [facility]. Provider then obtained vital signs and assessed pt h-t, pt found HEENT normal, -sob, -cp. -td, -jvd -n/v/d, -dizzy. Equal and bilateral chest rise and fall noted, lung sounds clear in all bartholomew. Extremities normal, normal range of motion, no pain noted in head, abdomen, flanks or back. [facility] contacted and assessment discussed. Provider confirmed allergies and pharmacy location, [facility] ordering [id number]/160 mg single dose with more being sent to pharmacy to be administered twice a day until completion. Provider alerted pt and granddaughter of red flags, informed them to complete entire prescription. Provider answered any questions and then left the residence. All times approximate. [facility] Lab Orders: culture, urine: Performed urinalysis, dipstick: Performed [facility] Medication Orders: sulfamethoxazole 800 mg-trimethoprim 160 mg tablet: Administered .................... .................... .................... .................... .................... .................... .................... . [facility] Consulted: Scott Lawson .Sinan................ .................... .................... .................... .................... .................... .................... . Disposition: Fulfilled Scott Lawson MD [address] [facility],[address], [place], [address], [facility] - [employer] 05/13/2024 14:20:08 12/15/2024 text/html CRC Nurse Triage [...] .................... .................... .................... .................... .................... .................... . Habilitation Training Specialist Note From Adam Cifuentes: Dispatched to the call address for the female with dizziness. Pt states she woke up feeling really dizzy. She does have a Hx of vertigo and took her Meclizine earlier but has not had any relief. She states this is a different type of dizziness from her normal vertigo. FOAM CASTER states Pt was in the hospital a [...] .................... .................... .................... .................... .................... .................... . [facility] Consulted: Sweta Adkins .................... .................... .................... .................... .................... .................... .................... . Disposition: Fulfilled Sweta Adkins MD [address] [place] [address],[address], [place], [address], KENDRA ABBOTT 12/15/2024 18:36:40 OBGyn Episode No OBEpisode recorded.
== END 2025-01-28 10:57 | disposition home or self-care (01) ==
LOC: HO.HMCH 10:16
PROVIDERS: PCP Internal Medicine; Visit Provider Internal Medicine
DX: H61.23 Impacted cerumen, bilateral (principal); H60.503 Unspecified acute noninfective otitis externa, bilateral

== ENCOUNTER → 2025-01-28 10:15 | Outpatient (BNVA) | payer OTHER, SELFPAY | PROVIDERS: PCP Internal Medicine; Visit Provider Internal Medicine | DX: H61.23 Impacted cerumen, bilateral (principal); H60.503 Unspecified acute noninfective otitis externa, bilateral | CPT/HCPCS: 69210; 96127; 99212 ==

== ENCOUNTER 2025-02-13 08:36 | Inpatient (IN) | payer OTHER, SELFPAY ==
[2025-02-13] VITALS (7 sets, daily range): BP systolic 114–154; BP diastolic 34–84; PULSE 63–79; RESP 15–19; TEMP 36.7; O2SAT 96–99; BMI 21.3; BMI 27.6
--- NOTE | ~2025-02-13 | XR_ITS ---
CLINICAL HISTORY: sob 1 view chest x-ray Comparison: 01/07/2025 Findings: The lungs are clear. Normal size heart. No acute fracture. IMPRESSION: 1. No acute findings. This document has been electronically signed by: Zi Miranda MD on 02/13/2025 09:43:56
--- NOTE | ~2025-02-13 | CT_ITS ---
CLINICAL HISTORY: ANG question obstructing uropathy abd discomf Exam: Nonenhanced CT abdomen and pelvis with multiplanar reformats. Comparison: 12/15/2024. Findings: CT abdomen: Lung bases are clear. Liver is free of gross focal lesions and ductal dilatation. Gallbladder is absent. Spleen appears unremarkable. Pancreas and adrenal glands appear unremarkable. Kidneys reveal a punctate nonobstructing right renal interpolar calculus (4; 149 and 6; 50). No other urolithiasis or ureteral stones. No hydronephrosis. Likely small amount of free fluid within right hemipelvis (4; 536, 6 Hounsfield units) appears similar to prior exam. No abdominal ascites. No retroperitoneal masses or adenopathy. Abdominal aorta is normal caliber with mild calcific atherosclerosis. Bowel loops reveal no abnormal wall thickening or distention. Colonic diverticulosis is present, without CT evidence of diverticulitis. CT pelvis: Uterus and adnexal structures appear stable with retroverted uterus. Urinary bladder is free of gross filling defects. No pelvic masses or adenopathy. Osseous structures reveal no destructive osseous lesions. Impression: 1. Punctate nonobstructing right renal calculus. Otherwise, no ureteral stones or hydroureteronephrosis. This document has been electronically signed by: Juan Willson MD on 02/13/2025 14:30:39
--- NOTE | 2025-02-13 08:45 | ED_ITS ---
HPI - General Adult General Chief complaint: Dyspnea Stated complaint: SOB, 99% 1LPM PER EMS Time Seen by Provider: 02/13/25 09:25 Source: patient and EMS Mode of arrival: EMS Limitations: no limitations History of Present Illness ED Provider: CLAUDIA Bond HPI narrative: Chief Complaint: ?I woke up this morning feeling really short of breath.? History of Present Illness: 89 year old female pmhx is notable for congestive heart failure (CHF), anemia, diabetes, hyperlipidemia, hypertension, irritable bowel syndrome (IBS), chronic kidney disease (CKD), hypertensive heart disease, left bundle-branch block, and gastroesophageal reflux disease (GERD)Patient awoke around 07:00 AM today with sudden-onset shortness of breath. She moved to the living room and, after sitting down, felt markedly winded. 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 Patient ambulated down stairs independently. EMS placed her on oxygen (initially 2 L at home; 1 L en route for comfort). She typically does not use home oxygen, but was placed on 2 L for this episode. She reports the shortness of breath has since resolved and currently feels ?fine.? She denies chest pain, nausea, or vomiting. She states she has been hospitalized multiple times previously but is unsure of the reasons. She follows with [facility]. No other associated symptoms reported. Related Data Home Medications ?Medication ?Instructions ?Recorded ?Confirmed mirabegron 50 mg tablet,extended 50 mg PO DAILY 01/28/25 release 24 hr (Myrbetriq) estradiol 0.01% (0.1 mg/gram) 1 appl vaginal BEDTIME 0 12/16/24 01/28/25 vaginal cream lidocaine 4 % topical patch 1 patch topical DAILY PRN Pain 12/16/24 01/28/25 dulaglutide 0.75 mg/0.5 mL 0.75 mg subcut MO 01/07/25 01/28/25 subcutaneous pen injector (Trulicity) Previous Rx's ?Medication ?Instructions ?Recorded epinephrine 0.3 mg/0.3 mL 0.3 mg (0.3 mL) IM Q10M PRN 03/26/20 injection, auto-injector (EpiPen anaphylaxis #1 ea 2-Mariano) commode (bedside commode) #1 ea 06/12/21 blood-glucose meter (OneTouch #1 ea 12/31/22 Ultra2 Meter) lancets 30 gauge (OneTouch #100 ea 12/31/22 UltraSoft 2 Lancet) Raised toilet seat with arms #1 ea 01/01/24 blood sugar diagnostic (OneTouch #100 ea 01/14/24 Ultra Test strips) Disposable bed pads #3 ea 06/11/24 body wipes #1 ea 06/11/24 diaper,brief,adult,disposable #100 ea 06/11/24 Adult pull ups #240 ea 06/17/24 carvedilol 6.25 mg tablet 6.25 mg PO BID #180 tabs 12/24 Disposable tiesha-pads #240 ea 07/17/24 dicyclomine 10 mg capsule 10 mg PO BID PRN abdominal p ain 09/12/24 #10 caps aspirin 81 mg tablet,delayed 81 mg PO DAILY #90 tabs 0 10/12/24 release (Adult Aspirin Regimen) blood pressure monitor (Blood #1 ea 11/06/24 Pressure Kit) insulin glargine U-300 conc 300 20 unit (0.0667 mL) de león bcut DAILY 11/13/24 unit/mL (1.5 mL) subcutaneous pen #4.5 mL (Toujeo SoloStar U-300 Insulin) atorvastatin 20 mg tablet 20 mg PO BEDTIME #90 tabs amiodarone 200 mg tablet See Rx Instructions .Route 1 Held on 01/25/25. .COMPLEX #140 tabs Instructions: Doctor's Order gabapentin 100 mg capsule 100 mg PO BID #60 caps 01/10 spironolactone 25 mg tablet 25 mg PO DAILY #90 tabs carbamide peroxide 6.5 % ear drops 5 drp otic (ears) D AILY 4 days #15 01/14/25 (Debrox) mL sacubitril 24 mg-valsartan 26 mg 1 tab PO BID #180 tab s 01/14/25 tablet (Entresto) tramadol 50 mg tablet 50 mg PO BID PRN pain #60 ta bs 01/14/25 empagliflozin 10 mg tablet 10 mg PO DAILY #90 tabs (Jardiance) Bed bar #1 ea 01/28/25 ciprofloxacin HCl 0.2 % ear drops 5 drp otic (ears) BI D 5 days #14 ea 01/28/25 in a dropperette meclizine 25 mg tablet (Motion 25 mg PO DAILY PRN blanca on sickness 02/04/25 Sickness Relief (meclizine)) #14 tabs omeprazole 20 mg capsule,delayed 20 mg PO DAILY #90 ca ps 02/04/25 release furosemide 40 mg tablet 40 mg PO .prn edema or short ness 02/05/25 of breath #30 tabs Allergies Allergy/AdvReac Type Severity Reaction Status Date / Time Iodinated Contrast Media (IV Allergy Unknown UNKNOWN Verified 02/13/25 08:50 CONTRAST) Review of Systems 2 Review of Systems: ? Respiratory: Positive for shortness of breath earlier this morning; currently resolved. ? Cardiovascular: Denies chest pain. ? GI: Denies nausea and vomiting. No additional systems reviewed or abnormalities reported during this encounter. Yes all other systems are reviewed and are negative PMFSH Past Medical History Attestation statement: The following information was validated with the patient. Source: old records reviewed and nursing notes reviewed Medical History Congestive heart failure Heart failure with reduced ejection fraction Anemia Prolapsed hemorrhoids Diabetic nephropathy with proteinuria Hyperlipidemia HTN (hypertension) IBS (irritable bowel syndrome) Prolapsed internal hemorrhoids Chronic kidney disease, stage III (moderate) Obesity (BMI 30-39.9) Mixed hyperlipidemia Hypertensive heart disease Left bundle branch block Bladder prolapse Diabetes mellitus GERD (gastroesophageal reflux disease) Surgical History History of bladder repair surgery History of ERCP History of bilateral cataract extraction History of cholecystectomy History of excision of mass History of colonoscopy History of ankle surgery Family History Family History Father No problems noted. Mother No problems noted. Family/Other Lung cancer Esophagus cancer Other Mental health disorder Substance use disorder Social History Social History Household Members: Family and Children Household Members Other:: children Housing: House Do you presently have visiting nurse or other home services: No Alcohol intake: never Patient Tobacco Use Status: Former Tobacco user e-Cigarette/Vaping Use: Never Used Second Hand Smoke Exposure: No Advance Directives: Yes Advance Directives on File: Yes Advance Directives Date on File: 11/11/24 Do you have a plan to hurt others: No Plan service: No Current occupational status: disabled Cognitive needs: Yes (cane/walker) Hearing needs: No Vision needs: Yes (glasses) Physical Exam ED Exam Exam: Appearance: Alert.? Oriented X3.? No acute distress.? Head: Normocephalic, atraumatic, no step-offs or deformities Eyes: Pupils equal, round and reactive to light.? Neck: Normal inspection.? Neck supple.? CVS: Normal heart rate and rhythm.? Pulses normal.? Respiratory: No respiratory distress.? Breath sounds normal.? Abdomen: Soft and nontender.? Skin: Skin warm and dry.? Normal skin color.? Normal skin turgor.? Extremities: No lower extremity edema.? No calf ttp. 5/5 strength to bilateral upper and lower extremities Back: No midline tenderness, no C-spine tenderness, full range of motion, no CVA tenderness bilaterally Neuro: Oriented X 3.? No motor deficit.? No sensory deficit. CN 2-12 intact Vital Signs: Vital Signs - 24 hr 02/13/25 08:48 02/13/25 08:53 02/13/25 15:36 Temperature 98.0 F 98.0 F 98.1 F Pulse Rate 63 63 79 Respiratory Rate 17 17 16 Blood Pressure 131/42 L 131/42 L 154/56 H Pulse Oximetry 98 98 97 Oxygen Delivery Method Room Air Room Air Room Air 02/13/25 15:57 Temperature Pulse Rate 70 Respiratory Rate 18 Blood Pressure Pulse Oximetry Oxygen Delivery Method BMI result Body Mass Index 21.3 vss Course Reevaluation(s) Reevaluation #1: CBC appears to be a baseline with normocytic anemia. No leukocytosis noted. Chemistry with elevated potassium 5.7 will order 10gm of Lokelma. Patient noted to have ANG BUN of 66 creatinine 1.96, this is not near her baseline. Troponin 76.7 this could be in the setting of demand and or kidney injury. I do not suspect acute ACS EKG is pending. ProBNP 507 this is much lower than her previous NT proBNP documented [place] 01/07/2025 [place] [address]751.7. At this time will proceed to give a L of normal saline slowly and re-evaluate patient's labs. Repeat troponin also pending. Time: 10:11 Reevaluation #2: Patient's troponin with a slight elevation however not meeting delta criteria no chest pain. Again I suspect that this is in the setting of type 2 injury and/or kidney injury. Patient is adamant that she wants to go home. I expressed to her that there is a few abnormalities on today's exam and laboratory findings. She does not want to stay in the hospital. She is willing to have repeat labs. Patient's daughter at the bedside also aware. Time: 12:09 Reevaluation #3: Patient's family enquiring results about CT scan CT results are not yet back. Time: 14:12 Additional Reevaluation(s): CT ABDOMEN PELVIS WITH PUNCTATE NONOBSTRUCTING RIGHT CALCULUS OTHERWISE NO URETERAL STONES OR HYDROURETER NEPHROSIS. PLAN HOSPITAL ADMISSION FOR ANG. Medications Administered Discontinued Medications Generic Name Dose Route Start Last Admin Trade Name Freq PRN Reason Stop Dose Admin Albuterol Sulfate 7.5 mg/ 10 mg 02/13/25 15:36 02/13/25 15:54 Albuterol Sulfate 2.5 mg INHALE 02/13/25 15:37 10 mg ONCE ONE Administration Sodium Chloride 1,000 mls @ 999 mls/hr 02/13/25 10:15 02/13/25 11:40 Ns IV 02/13/25 11:15 Infused .Q1H1M RAMIN Infusion Sodium Zirconium Cyclosilicate 10 gm 02/13/25 10:11 02/13/25 10:37 Sodium Zirconium Cyclosilicate 10 Gm Powd.Pack PO 02/13/25 10:12 10 gm ONCE ONE Administration Medical Decision Making Medical Decision Making [facility] Narrative: 085 Patient experienced an acute episode of shortness of breath this morning, now resolved in the ED. Vital signs are stable and lung exam is clear. Problem #1: Shortness of breath (resolved) Assessment: Transient dyspnea of unclear etiology; currently asymptomatic. Normal vitals and clear lung bartholomew on exam. * Differential Diagnosis: * Cardiac etiologies (e.g., arrhythmia, heart failure exacerbation) * Pulmonary causes (e.g., asthma, pneumonia, pulmonary embolism) * Anemia * Anxiety/panic attack * Other less likely causes (e.g., metabolic derangements) Plan: * Order basic laboratory studies. * Obtain CXR * Obtain 12-lead ECG. Differential Diagnosis Differential Diagnoses: The differential diagnosis associated with the presentation includes * Differential Diagnosis: * Cardiac etiologies (e.g., arrhythmia, heart failure exacerbation) * Pulmonary causes (e.g., asthma, pneumonia, pulmonary embolism) * Anemia * Anxiety/panic attack * Other less likely causes (e.g., metabolic derangements) Admission/Observation Consideration of admission/observation: Escalation of care including admission/observation considered Consult Healthcare Provider Management of the patient was discussed with: Hospitalist Lab Data MDM Lab Attestation statement: I reviewed the patient's lab results. 02/13/25 09:17 02/13/25 14:36 Labs: Lab Results 02/13/25 02/13/25 02/13/25 Range/Units 09:17 09:20 10:31 WBC 5.4 (4.8-10.8) X10*3/uL RBC 3.70 L (4.20-5.50) X10*6/uL Hgb 10.2 L (12.0-16.0) g/dl Hct 31.7 L (37.0-47.0) % MCV 85.7 (80.0-98.0) fL MCH 27.6 (27.0-33.0) pg MCHC 32.2 (31.0-35.0) g/dl RDW 14.7 (11.0-16.0) % Plt Count 180 (160-400) X10*3/uL MPV 9.9 (9.4-12.3) fL Immature Gran % (Auto) 0.2 (0.0-0.4) % Neut % (Auto) 64.7 (45-73) % Lymph % (Auto) 25.1 (20-40) % [place] % (Auto) 7.0 (2-11) % Eos % (Auto) 2.6 (0-4) % Baso % (Auto) 0.4 (0-2) % Lymph # (Auto) 1.4 (1.2-4.9) X10*3/uL [place] # (Auto) 0.4 (0.1-1.2) X10*3/uL Eos # (Auto) 0.1 (0.0-0.4) X10*3/uL Baso # (Auto) 0.0 (0.0-0.2) X10*3/uL Abs Immat Gran (auto) 0.01 (0.00-0.03) X10*3/uL Absolute Neuts (auto) 3.5 (2.0-8.3) x10*3/uL Absolute Nucleated RBC 0.000 (0.0-0.012) X10*3/uL Nucleated RBC % (auto) 0.0 (0.0-0.2) /100WBC PT 12.2 (11.2-13.5) SEC INR 1.0 (0.9-1.1) Sodium 140 (135-145) mmol/L Potassium 5.7 H D (3.3-5.1) mmol/L Chloride 109 H (96-108) mmol/L Carbon Dioxide 22 (22-29) mmol/L Anion Gap 15 (12-20) BUN 66 H (9-16) mg/dL Creatinine 1.96 H (0.5-1.4) mg/dL Estim Creat Clear Calc 16.1 Estimated GFR 24 Random Glucose 134 H (60-115) mg/dL Estimat Average Glucose 151 mg/dL Hemoglobin A1c % 6.9 H (<6.0) % Calcium 8.8 (8.4-10.2) mg/dL Magnesium 2.4 (1.6-2.6) mg/dL Total Bilirubin 0.2 (0.0-1.0) mg/dL AST 25 (5-31) U/L ALT 23 (0-31) U/L Alkaline Phosphatase 113 (39-117) U/L Troponin I High Sens 76.7 H* D 78.9 H* (<3.5-17.0) ng/L NT-Pro-B Natriuret Pep 507.0 H (<300) pg/mL Total Protein 6.8 (6.5-8.0) g/dL Albumin 4.1 (3.5-5.0) g/dL Urine Color Urine Appearance Urine pH (5.0-9.0) Ur Specific Bath (1.005-1.025) Urine Protein (Neg-Trace) mg/dL Urine Glucose (UA) (Negative) mg/dL Urine Ketones (Negative) mg/dL Urine Blood (Negative) Urine Nitrite (Negative) Ur Leukocyte Esterase (Negative) Urine RBC (0-2) /HPF Urine WBC (0-5) /HPF Ur Squamous Epith Cells (0-2) /HPF Urine Bacteria (None Seen) Hyaline Casts (0-2) /LPF 02/13/25 02/13/25 Range/Units 11:51 14:36 WBC (4.8-10.8) X10*3/uL RBC (4.20-5.50) X10*6/uL Hgb (12.0-16.0) g/dl Hct (37.0-47.0) % MCV (80.0-98.0) fL MCH (27.0-33.0) pg MCHC (31.0-35.0) g/dl RDW (11.0-16.0) % Plt Count (160-400) X10*3/uL MPV (9.4-12.3) fL Immature Gran % (Auto) (0.0-0.4) % Neut % (Auto) (45-73) % Lymph % (Auto) (20-40) % [place] % (Auto) (2-11) % Eos % (Auto) (0-4) % Baso % (Auto) (0-2) % Lymph # (Auto) (1.2-4.9) X10*3/uL [place] # (Auto) (0.1-1.2) X10*3/uL Eos # (Auto) (0.0-0.4) X10*3/uL Baso # (Auto) (0.0-0.2) X10*3/uL Abs Immat Gran (auto) (0.00-0.03) X10*3/uL Absolute Neuts (auto) (2.0-8.3) x10*3/uL Absolute Nucleated RBC (0.0-0.012) X10*3/uL Nucleated RBC % (auto) (0.0-0.2) /100WBC PT (11.2-13.5) SEC INR (0.9-1.1) Sodium 140 (135-145) mmol/L Potassium 5.2 H (3.3-5.1) mmol/L Chloride 109 H (96-108) mmol/L Carbon Dioxide 24 (22-29) mmol/L Anion Gap 12 (12-20) BUN 57 H (9-16) mg/dL Creatinine 1.68 H (0.5-1.4) mg/dL Estim Creat Clear Calc 18.7 Estimated GFR 29 Random Glucose 203 H (60-115) mg/dL Estimat Average Glucose mg/dL Hemoglobin A1c % (<6.0) % Calcium 8.4 (8.4-10.2) mg/dL Magnesium (1.6-2.6) mg/dL Total Bilirubin 0.2 (0.0-1.0) mg/dL AST 24 (5-31) U/L ALT 22 (0-31) U/L Alkaline Phosphatase 123 H (39-117) U/L Troponin I High Sens (<3.5-17.0) ng/L NT-Pro-B Natriuret Pep (<300) pg/mL Total Protein 6.8 (6.5-8.0) g/dL Albumin 4.0 (3.5-5.0) g/dL Urine Color Yellow Urine Appearance Clear Urine pH 6.0 (5.0-9.0) Ur Specific Bath 1.015 (1.005-1.025) Urine Protein Negative (Neg-Trace) mg/dL Urine Glucose (UA) >=1000 H (Negative) mg/dL Urine Ketones Negative (Negative) mg/dL Urine Blood Negative (Negative) Urine Nitrite Negative (Negative) Ur Leukocyte Esterase Negative (Negative) Urine RBC 0-2 (0-2) /HPF Urine WBC 0-5 (0-5) /HPF Ur Squamous Epith Cells 0-2 (0-2) /HPF Urine Bacteria None Seen (None Seen) Hyaline Casts 0-2 (0-2) /LPF Independent Interpretation I performed an independent interpretation of an: EKG and CT Scan (Impression: 1. Punctate nonobstructing right renal calculus. Otherwise, no ureteral stones or hydroureteronephrosis) Interpretation: Normal sinus rhythm Left bundle branch block Abnormal ECG When compared with ECG of 07-Jan-2025 04:09, No significant change was found Radiology Impression Discussion of test interpretation with radiology: I have reviewed the radiologist's reading. External Record Review External record reviewed: Inpatient record, Office record, Outpatient record, Prior outpatient labs, Prior outpatient radiology, Primary care record and Outside ED record Chronic Conditions Patient?s care impacted by: Other (SEE HPI ) Social Determinants Patient?s care significantly limited by Social Determinants of Health including: Other Social Determinant of Health Critical Care Time Critical Care Time Critical Care Time: Yes Total Critical Care Time: 35 Attestation: I attest to this time spent taking care of the patient, obtaining history, physical, reviewing labs, imaging, treatment of patients condition +/- specialist/hospitalist consult +/- procedure Discharge Plan Discharge Clinical Impression: ANG (acute kidney injury), Shortness of breath, Fatigue, Acute hyperkalemia Patient Disposition: Admitted As Inpatient
[2025-02-13 09:21] LABS: MANUAL DIFF FLAG NO
[2025-02-13 09:22] LABS: Hematocrit 31.7 % (37.0-47.0); Hemoglobin 10.2 g/dl (12.0-16.0); Imm Gran Abs Auto 0.01 X10*3/uL (0.00-0.03); Imm Gran Pct Auto 0.2 % (0.0-0.4); Lymphocytes Absolute Auto 1.4 X10*3/uL (1.2-4.9); Mean Corpuscular HGB Conc 32.2 g/dl (31.0-35.0); Mean Corpuscular Hemoglobin 27.6 pg (27.0-33.0); Mean Corpuscular Volume 85.7 fL (80.0-98.0); NRBC Abs Auto 0.000 X10*3/uL (0.0-0.012); NRBC Pct Auto 0.0 /100WBC (0.0-0.2); Platelet Count 180 X10*3/uL (160-400); Red Blood Count 3.70 X10*6/uL (4.20-5.50); White Blood Count 5.4 X10*3/uL (4.8-10.8)
[2025-02-13 09:34] LABS: INTERNATIONAL NORM RATIO 1.0 (0.9-1.1); Prothrombin Time 12.2 SEC (11.2-13.5)
[2025-02-13 09:40] LABS: Alanine Aminotransferase 23 U/L (0-31); Albumin Level 4.1 g/dL (3.5-5.0); Alkaline Phosphatase 113 U/L (39-117); Anion Gap 15 (12-20); Aspartate Amino Transferase 25 U/L (5-31); Blood Urea Nitrogen 66 mg/dL (9-16); Calcium 8.8 mg/dL (8.4-10.2); Carbon Dioxide 22 mmol/L (22-29); Chloride 109 mmol/L (96-108); Creatinine Clr Calc Pharmacy 16.1; Estimated Glomerular Filt Rate 24; Magnesium 2.4 mg/dL (1.6-2.6); Potassium 5.7 mmol/L (3.3-5.1); Sodium 140 mmol/L (135-145); Total Protein 6.8 g/dL (6.5-8.0)
[2025-02-13 09:41] LABS: NT Pro B Type Natriuretic Pept 507.0 pg/mL (<300)
[2025-02-13 09:44] LABS: Troponin-I High Sensitivity 76.7 ng/L (<3.5-17.0)
--- NOTE | 2025-02-13 10:10 | ECG_ITS ---
Test Reason : SOB Blood Pressure : */* mmHG Vent. Rate : 65 BPM Atrial Rate : 65 BPM P-R Int : 194 ms QRS Dur : 162 ms QT Int : 466 ms P-R-T Axes : 50 -22 102 degrees QTcB Int : 484 ms Normal sinus rhythm Left bundle branch block Abnormal ECG When compared with ECG of 07-Jan-2025 04:09, No significant change was found Referred By: Stacie Bond Electronically Signed By: LATOYA HERNANDEZ MD
[2025-02-13 11:29] LABS: Troponin-I High Sensitivity 78.9 ng/L (<3.5-17.0)
[2025-02-13 12:03] LABS: Appearance Urine Clear; Glucose Urine UA >=1000 mg/dL (Negative); PH 6.0 (5.0-9.0); Specific Gravity - Urine 1.015 (1.005-1.025); UMIC TRIGGER UACC YES
[2025-02-13 15:02] LABS: Alanine Aminotransferase 22 U/L (0-31); Albumin Level 4.0 g/dL (3.5-5.0); Alkaline Phosphatase 123 U/L (39-117); Anion Gap 12 (12-20); Aspartate Amino Transferase 24 U/L (5-31); Blood Urea Nitrogen 57 mg/dL (9-16); Calcium 8.4 mg/dL (8.4-10.2); Carbon Dioxide 24 mmol/L (22-29); Chloride 109 mmol/L (96-108); Creatinine Clr Calc Pharmacy 18.7; Estimated Glomerular Filt Rate 29; Potassium 5.2 mmol/L (3.3-5.1); Sodium 140 mmol/L (135-145); Total Protein 6.8 g/dL (6.5-8.0)
--- NOTE | 2025-02-13 15:34 | P.HPHOSP_ITS ---
History of Present Illness Date of Service: 02/13/25 Chief Complaint: SOB/GRIFFIN since morning Patient is a 89-year-old female with a history of HFrEF (EF 25%), pneumonia, hyperlipidemia, IBS-D, CKD 3b, GERD, chronic LBBB, diabetes mellitus, recent diverticulitis and anemia, presenting with shortness of breath. She was just discharged a month ago for similar concerns and was noted to have AE HFrEF, and SVT and was initiated on amiodarone. Patient likely has some mild cognitive dysfunction as she has been stating that she does not know she has gradually declining heart function. Unsure compliance as she has been started on Jardiance and spironolactone as well. She apparently had 2 large bananas, denies any sick contacts at home, no fever. Just had some mild shortness of breath and dyspnea on exertion since waking up this morning. In the ED, have initiated her sepsis workup, started her on antibiotics, she was also noted to have ANG on CKD 3, likely in the setting of worsening HFrEF and likely would benefit from gentle hydration, for hyperkalemia I am giving her albuterol, insulin, Lokelma. Patient was quite tearful and did not want to get admitted , throughout this conversation patient's daughter and granddaughter were at the bedside and daughter was translating Patient stating ?I do not want to stay here In the ED-for hyperkalemia she continued to have ANG, despite a L of bolus, local and he EKG was unremarkable for any NSTEMI or STEMI, V paced rhythm, troponinemia - type II Review of Systems 2 Review of Systems: ? Respiratory: Positive for shortness of breath earlier this morning; currently resolved. ? Cardiovascular: Denies chest pain. ? GI: Denies nausea and vomiting. No additional systems reviewed or abnormalities reported during this encounter. Yes all other systems are reviewed and are negative [facility] Medical History Congestive heart failure Heart failure with reduced ejection fraction Anemia Prolapsed hemorrhoids Diabetic nephropathy with proteinuria Hyperlipidemia HTN (hypertension) IBS (irritable bowel syndrome) Prolapsed internal hemorrhoids Chronic kidney disease, stage III (moderate) Obesity (BMI 30-39.9) Mixed hyperlipidemia Hypertensive heart disease Left bundle branch block Bladder prolapse Diabetes mellitus GERD (gastroesophageal reflux disease) Family History Father No problems noted. Mother No problems noted. Family/Other Lung cancer Esophagus cancer Other Mental health disorder Substance use disorder Surgical History History of bladder repair surgery History of ERCP History of bilateral cataract extraction History of cholecystectomy History of excision of mass History of colonoscopy History of ankle surgery Social History Household Members: Family and Children Household Members Other:: children Housing: House Do you presently have visiting nurse or other home services: No Alcohol intake: never Patient Tobacco Use Status: Former Tobacco user e-Cigarette/Vaping Use: Never Used Second Hand Smoke Exposure: No Advance Directives: Yes Advance Directives on File: Yes Advance Directives Date on File: 11/11/24 Do you have a plan to hurt others: No Plan service: No Current occupational status: disabled Cognitive needs: Yes (cane/walker) Hearing needs: No Vision needs: Yes (glasses) Meds Allergies Allergy/AdvReac Type Severity Reaction Status Date / Time Iodinated Contrast Media (IV Allergy Unknown UNKNOWN Verified 02/13/25 08:50 CONTRAST) Home Medications ?Medication ?Instructions ?Recorded ?Confirmed ?Last Taken ?Type mirabegron 50 mg tablet,extended 50 mg PO DAILY 01/28/25 01/06/25 History release 24 hr (Myrbetriq) estradiol 0.01% (0.1 mg/gram) 1 appl vaginal BEDTIME 0 12/16/24 01/28/25 01/06/25 History vaginal cream lidocaine 4 % topical patch 1 patch topical DAILY PRN Pain 12/16/24 01/28/25 Unknown History dulaglutide 0.75 mg/0.5 mL 0.75 mg subcut MO 01/07/25 01/28/25 01/04/25 History subcutaneous pen injector (Trulicity) Physical Exam 2 Vital Signs and Narrative: Vital Signs: Last Vital Signs Temp 98.0 F 02/13/25 08:53 Pulse 63 02/13/25 08:53 Resp 17 02/13/25 08:53 BP 131/42 L 02/13/25 08:53 Pulse Ox 98 02/13/25 08:53 O2 Del Method Room Air 02/13/25 08:53 BMI result Body Mass Index 21.3 Const: Other: Elderly female resting in bed, appears tired but comfortable at this time. General: alert and awake Nutritional Appearance: average body habitus Orientation/consciousness: patient oriented x3 Resp: Effort & Inspection: able to speak in complete sentences A uscultation: rales (bibasilar) Cardio: Jugular venous distension: JVD GI: Inspection: No distended Palpation (GI): Soft to palpation and nontender Neuro: General: patient oriented x3, moves all extremities and CN's II-XI intact bilaterally Extrem: Other: trace LE edema (Right LE chronically large then left as per family) Results Labs 02/13/25 09:17 02/13/25 14:36 Labs: Laboratory Results - last 24 hr 02/13/25 02/13/25 02/13/25 09:17 10:31 11:51 MCV 85.7 MCH 27.6 MCHC 32.2 RDW 14.7 Plt Count 180 MPV 9.9 Immature Gran % (Auto) 0.2 Neut % (Auto) 64.7 Lymph % (Auto) 25.1 [place] % (Auto) 7.0 Eos % (Auto) 2.6 Baso % (Auto) 0.4 Lymph # (Auto) 1.4 [place] # (Auto) 0.4 Eos # (Auto) 0.1 Baso # (Auto) 0.0 Abs Immat Gran (auto) 0.01 Absolute Neuts (auto) 3.5 Absolute Nucleated RBC 0.000 Nucleated RBC % (auto) 0.0 PT 12.2 INR 1.0 Anion Gap 15 Estim Creat Clear Calc 16.1 Estimated GFR 24 Random Glucose 134 H Calcium 8.8 Magnesium 2.4 Total Bilirubin 0.2 AST 25 ALT 23 Alkaline Phosphatase 113 Troponin I High Sens 76.7 H* D 78.9 H* NT-Pro-B Natriuret Pep 507.0 H Total Protein 6.8 Albumin 4.1 Urine Color Yellow Urine Appearance Clear Urine pH 6.0 Ur Specific [place] 1.015 Urine Protein Negative Urine Glucose (UA) >=1000 H Urine Ketones Negative Urine Blood Negative Urine Nitrite Negative Ur Leukocyte Esterase Negative Urine RBC 0-2 Urine WBC 0-5 Ur Squamous Epith Cells 0-2 Urine Bacteria None Seen Hyaline Casts 0-2 02/13/25 14:36 MCV MCH MCHC RDW Plt Count MPV Immature Gran % (Auto) Neut % (Auto) Lymph % (Auto) [place] % (Auto) Eos % (Auto) Baso % (Auto) Lymph # (Auto) [place] # (Auto) Eos # (Auto) Baso # (Auto) Abs Immat Gran (auto) Absolute Neuts (auto) Absolute Nucleated RBC Nucleated RBC % (auto) PT INR Anion Gap 12 Estim Creat Clear Calc 18.7 Estimated GFR 29 Random Glucose 203 H Calcium 8.4 Magnesium Total Bilirubin 0.2 AST 24 ALT 22 Alkaline Phosphatase 123 H Troponin I High Sens NT-Pro-B Natriuret Pep Total Protein 6.8 Albumin 4.0 Urine Color Urine Appearance Urine pH Ur Specific [place] Urine Protein Urine Glucose (UA) Urine Ketones Urine Blood Urine Nitrite Ur Leukocyte Esterase Urine RBC Urine WBC Ur Squamous Epith Cells Urine Bacteria Hyaline Casts Assessment and Plan (1) ANG (acute kidney injury): Status: Acute Plan 89-year-old female with a history of HFrEF (EF 25%), pneumonia, hyperlipidemia, IBS-D, CKD 3b, GERD, chronic LBBB, diabetes mellitus, recent diverticulitis and anemia, presenting with shortness of breath. Found to have acute on chronic heart failure exacerbation likely secondary to medication compliance, ANG on CKD3 and hyperkalemia Acute on Chronic HFrEF (EF 25%) Patient likely has acute exacerbation similar to her prior presentation in the setting of not having any diuretics, medication noncompliance, not adhering to a low-sodium diet Lasix 40 IV b.i.d. I's and o's, electrolytes Weight Telemetry Med rec pending-continue GDM T when done TTE was done just a month ago and hence not repeating it Sepsis less likely, however given the flu Z him in a patient with medical comorbidities and groaning diabetes, I would like to rule out any respiratory trigger for her AE HFrEF ANG on CKD 3 Likely prerenal azotemia, ANG not responding to medical management We will give her another dose of Lokelma, albuterol and insulin Daily CMP History of NSVT during prior admission for similar concerns of SOB, she had a nonsustained VT and amiodarone-she is supposed to currently be on amiodarone 200 mg daily We will monitor on telemetry and replete electrolytes to goal NSTEMI, Type 2 This was likely secondary to decompensated CHF, probable underlying coronary artery disease. She had been advised outpatient cardiac catheterization given her clinical comorbidities. Once med rec is done, resume her home meds. Diabetes Mellitus A1c 6.9 ISS while inpatient Hold home meds Chronic Anemia- A/C - likely CKD 3 monitor Thyroid Nodule A thyroid nodule was incidentally noted on imaging. Outpatient thyroid ultrasound is recommended. Renal nephrolithiasis outpatient management Code status DNR DNI Med rec pending This note is constructed using voice recognition software. While every effort has been made to ensure accuracy, health coach errors may have been included. Quality Stroke Does the patient have a stroke diagnosis?: No VTE Prior VTE?: No VTE Risk Level:: Medical - moderate - high VTE Device Contraindication: N/A - Device Ordered VTE Drug Contraindication: N/A - Med Ordered
--- NOTE | 2025-02-13 15:35 | ECG_ITS ---
Test Reason : HYPERK Blood Pressure : */* mmHG Vent. Rate : 68 BPM Atrial Rate : 68 BPM P-R Int : 184 ms QRS Dur : 160 ms QT Int : 458 ms P-R-T Axes : 50 -24 105 degrees QTcB Int : 487 ms Normal sinus rhythm Left bundle branch block Abnormal ECG When compared with ECG of 13-Feb-2025 10:31, No significant change was found Referred By: Key An Electronically Signed By: LATOYA HERNANDEZ MD
[2025-02-13] MEDS: Albuterol Sulfate 7.5 MG, Albuterol Sulfate (0.083%) 2.5 MG 10 MG INHALE (15:54)
[2025-02-13 17:26] LABS: Troponin-I High Sensitivity 83.2 ng/L (<3.5-17.0)
[2025-02-13 17:28] LABS: Glucose, Whole Blood 218 mg/dL (60-115)
[2025-02-13] MEDS: 0.9 % Sodium Chloride Flush 3 ML SYRINGE IVFLUSH (17:46)
[2025-02-13] MEDS: Furosemide 40 MG/4 ML VIAL IVPUSH (18:03)
--- NOTE | 2025-02-13 18:06 | PHA.MEDREC ---
Pharmacy Consult ? Medication Reconciliation Pharmacy has completed the medication reconciliation. Spoke to patient's granddaughter Connie over the phone to confirm medication list and she verified multiple times that patient is no longer taking amiodarone,, estradiol vaginal cream, ear drops nor dicyclomine. Patient is still taking carvedilol 6.25 mg bid and she uses 20 units of toujeo daily prn (both patient and grand daughter don't know what is the blood sugar limit for patient to use the toujeo). Patient is taking furosemide 40 mg daily, gabapentin 100 mg bid and trulicity on Mondays. Last dose of medications was yesterday 02/12/2025.
--- NOTE | 2025-02-13 18:41 | HO.NURTONUR ---
89 yr female admitted for ANG Pt comes to ED today with c/o of SOB and feeling winded with ambulation. SOB resolved prior to arrival at ED. A&Ox3 Syriac speaking only. VSS, afebrile. Seen by RT Workup shows elevated potassium. Insulin and Lokelma given. DM--last POC 218. Diabetic diet. 20g LAC Family at bedside.
[2025-02-13 20:45] LABS: Troponin-I High Sensitivity 80.2 ng/L (<3.5-17.0)
[2025-02-13 22:11] LABS: Glucose, Whole Blood 93 mg/dL (60-115)
[2025-02-14 00:50] LABS: Troponin-I High Sensitivity 84.5 ng/L (<3.5-17.0)
[2025-02-14 02:06] VITALS: BMI 27.5
[2025-02-14] MEDS: 0.9 % Sodium Chloride Flush 3 ML SYRINGE IVFLUSH ×4 (02:35→22:22)
[2025-02-14 02:46] VITALS: BP 144/65; PULSE 75; RESP 18; TEMP 36.7; O2SAT 97
[2025-02-14 07:08] VITALS: BP 135/61; PULSE 72; RESP 18; TEMP 36.4; O2SAT 95
[2025-02-14 07:19] LABS: Glucose, Whole Blood 106 mg/dL (60-115)
[2025-02-14 07:35] LABS: MANUAL DIFF FLAG NO
[2025-02-14 07:39] LABS: Hematocrit 32.7 % (37.0-47.0); Hemoglobin 10.3 g/dl (12.0-16.0); Imm Gran Abs Auto 0.01 X10*3/uL (0.00-0.03); Imm Gran Pct Auto 0.2 % (0.0-0.4); Lymphocytes Absolute Auto 1.3 X10*3/uL (1.2-4.9); Mean Corpuscular HGB Conc 31.5 g/dl (31.0-35.0); Mean Corpuscular Hemoglobin 27.4 pg (27.0-33.0); Mean Corpuscular Volume 87.0 fL (80.0-98.0); NRBC Abs Auto 0.000 X10*3/uL (0.0-0.012); NRBC Pct Auto 0.0 /100WBC (0.0-0.2); Platelet Count 175 X10*3/uL (160-400); Red Blood Count 3.76 X10*6/uL (4.20-5.50); White Blood Count 4.9 X10*3/uL (4.8-10.8)
[2025-02-14 08:06] LABS: Alanine Aminotransferase 24 U/L (0-31); Albumin Level 3.9 g/dL (3.5-5.0); Alkaline Phosphatase 103 U/L (39-117); Anion Gap 11 (12-20); Aspartate Amino Transferase 32 U/L (5-31); Blood Urea Nitrogen 53 mg/dL (9-16); Calcium 8.7 mg/dL (8.4-10.2); Carbon Dioxide 24 mmol/L (22-29); Chloride 109 mmol/L (96-108); Creatinine Clr Calc Pharmacy 23.7; Estimated Glomerular Filt Rate 32; Magnesium 2.1 mg/dL (1.6-2.6); Potassium 4.2 mmol/L (3.3-5.1); Sodium 140 mmol/L (135-145); Total Protein 6.6 g/dL (6.5-8.0)
[2025-02-14 08:25] LABS: Troponin-I High Sensitivity 85.0 ng/L (<3.5-17.0)
[2025-02-14 08:42] LABS: MRSA Nasal PCR NEGATIVE (Negative); SA Nasal PCR NEGATIVE (Negative)
[2025-02-14 09:05] LABS: Chlamydia pneumoniae PCR Not Detected (Not Detect.); Coronavirus 229E PCR Not Detected (Not Detect.); Coronavirus HKU1 PCR Not Detected (Not Detect.); Coronavirus NL63 PCR Not Detected (Not Detect.); Coronavirus OC43 PCR Not Detected (Not Detect.); RSV PCR Not Detected (Not Detect.); Rhino/Enterovirus PCR Not Detected (Not Detect.)
[2025-02-14 09:31] LABS: Influenza A H1 PCR Not Detected (Not Detect.); Influenza A H1-2009 PCR Not Detected (Not Detect.); Influenza A H3 PCR Not Detected (Not Detect.); SARS-CoV-2 PCR Not Detected (Not Detect.)
[2025-02-14] MEDS: Furosemide 40 MG/4 ML VIAL IVPUSH ×2 (10:21→18:23)
[2025-02-14 11:07] VITALS: BP 162/71; PULSE 79; RESP 18; TEMP 36.6; O2SAT 98
[2025-02-14 11:18] LABS: Glucose, Whole Blood 118 mg/dL (60-115)
[2025-02-14] MEDS: Mirabegron 50 MG TAB.ER.24H PO (12:35)
[2025-02-14] MEDS: Aspirin Enteric Coated 81 MG TABLET.DR PO (12:35)
--- NOTE | 2025-02-14 15:07 | MHC.CM.PN ---
CM MET WITH PT AND DAUGHTERS AT BEDSIDE, DAUGHTERS PROVIDED TRANSLATION WHEN NEEDED. PT LIVES WITH HER SON AND GRANDSON SHE HAS A DAILY DIRECTOR VISUAL AND A VNA A FEW TIMES PER WEEK, HOWEVER NO ONE IS SURE OF THE AGENCY NAME PT USES A WALKER FOR DME HCP AND MOLST ON FILE PCP: SANTIAGO NOVAK OBSERVATION NOTICE DELIVERED DCP: [facility] FAM[facility] TO TRANSPORT
[2025-02-14 15:22] VITALS: BP 127/60; PULSE 89; RESP 18; TEMP 36.4; O2SAT 97
[2025-02-14 15:34] LABS: Glucose, Whole Blood 170 mg/dL (60-115)
--- NOTE | 2025-02-14 18:20 | P.PNIM_ITS ---
Subjective Subjective Date of Service: 02/14/25 Interval History: Breathing and shortness of the breath improved Slight headache Denies chest pain or pressure Reports overall feeling much better than when presented to the ED Review of Systems Review of Systems: Yes all other systems are reviewed and are negative Physical Exam 2 Exam: Exam: General: AOx3, no acute distress Resp: Bibasilar crackles CVS: S1, S2, RRR GI: +BS, NT, no distention Skin: Warm, dry Neuro: Cranial nerves II-XII grossly intact bilaterally. Motor grossly intact bilaterally Extremities: No edema Psych: Appropriate affect Vital Signs: Vital Signs: Last Vital Signs Temp 97.5 F 02/14/25 15:22 Pulse 89 02/14/25 15:22 Resp 18 02/14/25 15:22 BP 127/60 02/14/25 15:22 Pulse Ox 97 02/14/25 15:22 O2 Del Method Room Air 02/14/25 15:22 BMI result Body Mass Index 27.5 Objective Data Active Medications Acetaminophen (Acetaminophen 325 Mg Tablet) 650 mg PO Q6H PRN PRN Reason: Pain, Mild 1-3,fever,headache Last Admin: 02/14/25 05:41 Dose: 650 mg Documented By: ÁNGEL Albuterol/Ipratropium (Albuterol/Iprat 2.5/0.5mg 3 Ml Ampul.Neb) 3 ml INHALE QID PRN PRN Reason: Shortness of Breath/Wheezing Aspirin (Aspirin Enteric Coated 81 Mg Tablet.) 81 mg PO DAILY [facility] Last Admin: 02/14/25 12:35 Dose: 81 mg Documented By: PAULINA Atorvastatin Calcium (Atorvastatin Calcium 20 Mg Tablet) 20 mg PO BEDTIME [facility] Benzonatate (Benzonatate 100 Mg Capsule) 100 mg PO TID PRN PRN Reason: Cough Calcium Carbonate (Calcium Carbonate 750 Mg Tab.Chew) 750 mg PO Q4H PRN PRN Reason: Heartburn Dextrose (Dextrose 50 % 25 Gm/50 Ml Syringe) 25 gm IVPUSH Q15M PRN; Protocol PRN Reason: per Hypoglycemia Standing Ord. Docusate Sodium (Docusate Sodium 100 Mg Capsule) 100 mg PO BID [facility] Last Admin: 02/14/25 10:21 Dose: 100 mg Documented By: PAULINA Empagliflozin (Empagliflozin 10 Mg Tablet) 10 mg PO DAILY [facility] Furosemide (Furosemide 40 Mg/4 Ml Vial) 40 mg IVPUSH BID@0900,1800 [facility]; Protocol Last Admin: 02/14/25 10:21 Dose: 40 mg Documented By: PAULINA Gabapentin (Gabapentin 100 Mg Capsule) 100 mg PO BID [facility] Last Admin: 02/14/25 12:36 Dose: 100 mg Documented By: PAULINA Glucose (Glucose Gel 15 Gm Gel..Gram.) 15 gm PO Q15M PRN; Protocol PRN Reason: per Hypoglycemia Standing Ord. Heparin Sodium (Porcine) (Heparin Sodium,Porcine 5,000 Unit/Ml Vial) 5,000 unit SUBCUT Q8H [facility] Last Admin: 02/14/25 10:21 Dose: 5,000 unit Documented By: PAULINA Insulin Human Lispro (Insulin Lispro 100 Unit/Ml 3 Ml Vial) 0 unit SUBCUT QIDACHS [facility]; Protocol Last Admin: 02/14/25 16:31 Dose: 2 unit Documented By: PAULINA Meclizine HCl (Meclizine Hcl 25 Mg Tablet) 25 mg PO DAILY PRN PRN Reason: motion sickness Melatonin (Melatonin 3 Mg Tablet) 6 mg PO BEDTIME PRN PRN Reason: Insomnia Mirabegron (Mirabegron 50 Mg Tab.Er.24h) 50 mg PO DAILY [facility] Last Admin: 02/14/25 12:35 Dose: 50 mg Documented By: PAULINA Ondansetron HCl (Ondansetron Hcl 4 Mg/2 Ml Vial) 4 mg IVPUSH Q8H PRN PRN Reason: Nausea and Vomiting Pantoprazole Sodium (Pantoprazole Sodium 40 Mg/10 Ml Vial) 40 mg IVPUSH DAILY@0630 [facility] Last Admin: 02/14/25 05:42 Dose: 40 mg Documented By: ÁNGEL Polyethylene Glycol (Polyethylene Glycol 3350 17 Gm Powd.Pack) 17 gm PO DAILY PRN PRN Reason: Constipation Senna (Sennosides 8.6 Mg Tablet) 17.2 mg PO BEDTIME [facility] Last Admin: 02/13/25 21:57 Dose: Not Given Documented By: KARSTEN-STALIN Non-Admin Reason: Patient Asleep Sodium Chloride (0.9 % Sodium Chloride Flush 3 Ml Syringe) 3 ml IVFLUSH QSHIFT [facility] Last Admin: 02/14/25 10:22 Dose: 3 ml Documented By: PAULINA Spironolactone (Spironolactone 25 Mg Tablet) 25 mg PO DAILY [facility]; Protocol Last Admin: 02/14/25 12:35 Dose: 25 mg Documented By: PAULINA Labs 02/14/25 06:56 02/14/25 06:56 Labs: Laboratory Results - last 24 hr 02/13/25 02/13/25 02/13/25 16:50 20:01 22:07 MCV MCH MCHC RDW Plt Count MPV Immature Gran % (Auto) Neut % (Auto) Lymph % (Auto) [place] % (Auto) Eos % (Auto) Baso % (Auto) Lymph # (Auto) [place] # (Auto) Eos # (Auto) Baso # (Auto) Abs Immat Gran (auto) Absolute Neuts (auto) Absolute Nucleated RBC Nucleated RBC % (auto) Hold Purple Top SEE NOTE Anion Gap Estim Creat Clear Calc Estimated GFR POC Glucose 93 Random Glucose Calcium Magnesium Total Bilirubin AST ALT Alkaline Phosphatase Troponin I High Sens 80.2 H* Total Protein Albumin Nasal Screen MRSA (PCR) NEGATIVE Nasal S. aureus Screen NEGATIVE Nasal MRSA/S.aureus Interp SEE NOTE Respiratory Panel [place] See Note Adenovirus (Rapid PCR) Not Detected B.pert (TEM-PCR) Not Detected B.parapertussis DNA PCR Not Detected C. pneumoniae DNA (PCR) Not Detected Coronavirus OC43 (PCR) Not Detected Coronavirus HKU1 (PCR) Not Detected Coronavirus 229E (PCR) Not Detected Coronavirus NL63 (PCR) Not Detected Human Metapneumovir PCR Not Detected Influenza A (RT-PCR) Not Detected Influenza A (H1) PCR Not Detected Influ A (H1/09) PCR Not Detected Influenza A (H3) PCR Not Detected Influenza B (RT-PCR) Not Detected M. pneumoniae (PCR) Not Detected Parainfluenza 1 (PCR) Not Detected Parainfluenza 2 (PCR) Not Detected Parainfluenza 3 (PCR) Not Detected Parainfluenza 4 (PCR) Not Detected RSV (PCR) Not Detected Entero/Rhino (PCR) Not Detected SARS-CoV-2 RNA (RT-PCR) Not Detected 02/14/25 02/14/25 02/14/25 00:10 06:56 07:10 MCV 87.0 MCH 27.4 MCHC 31.5 RDW 14.7 Plt Count 175 MPV 10.6 Immature Gran % (Auto) 0.2 Neut % (Auto) 64.8 Lymph % (Auto) 25.8 [place] % (Auto) 7.0 Eos % (Auto) 2.0 Baso % (Auto) 0.2 Lymph # (Auto) 1.3 [place] # (Auto) 0.3 Eos # (Auto) 0.1 Baso # (Auto) 0.0 Abs Immat Gran (auto) 0.01 Absolute Neuts (auto) 3.2 Absolute Nucleated RBC 0.000 Nucleated RBC % (auto) 0.0 Hold Purple Top Anion Gap 11 L Estim Creat Clear Calc 23.7 Estimated GFR 32 POC Glucose 106 Random Glucose 94 Calcium 8.7 Magnesium 2.1 Total Bilirubin 0.4 AST 32 H ALT 24 Alkaline Phosphatase 103 Troponin I High Sens 84.5 H* 85.0 H* Total Protein 6.6 Albumin 3.9 Nasal Screen MRSA (PCR) Nasal S. aureus Screen Nasal MRSA/S.aureus Interp Respiratory Panel [place] Adenovirus (Rapid PCR) B.pert (TEM-PCR) B.parapertussis DNA PCR C. pneumoniae DNA (PCR) Coronavirus OC43 (PCR) Coronavirus HKU1 (PCR) Coronavirus 229E (PCR) Coronavirus NL63 (PCR) Human Metapneumovir PCR Influenza A (RT-PCR) Influenza A (H1) PCR Influ A (H1/09) PCR Influenza A (H3) PCR Influenza B (RT-PCR) M. pneumoniae (PCR) Parainfluenza 1 (PCR) Parainfluenza 2 (PCR) Parainfluenza 3 (PCR) Parainfluenza 4 (PCR) RSV (PCR) Entero/Rhino (PCR) SARS-CoV-2 RNA (RT-PCR) 02/14/25 02/14/25 11:08 15:25 MCV MCH MCHC RDW Plt Count MPV Immature Gran % (Auto) Neut % (Auto) Lymph % (Auto) [place] % (Auto) Eos % (Auto) Baso % (Auto) Lymph # (Auto) [place] # (Auto) Eos # (Auto) Baso # (Auto) Abs Immat Gran (auto) Absolute Neuts (auto) Absolute Nucleated RBC Nucleated RBC % (auto) Hold Purple Top Anion Gap Estim Creat Clear Calc Estimated GFR POC Glucose 118 H 170 H Random Glucose Calcium Magnesium Total Bilirubin AST ALT Alkaline Phosphatase Troponin I High Sens Total Protein Albumin Nasal Screen MRSA (PCR) Nasal S. aureus Screen Nasal MRSA/S.aureus Interp Respiratory Panel [place] Adenovirus (Rapid PCR) B.pert (TEM-PCR) B.parapertussis DNA PCR C. pneumoniae DNA (PCR) Coronavirus OC43 (PCR) Coronavirus HKU1 (PCR) Coronavirus 229E (PCR) Coronavirus NL63 (PCR) Human Metapneumovir PCR Influenza A (RT-PCR) Influenza A (H1) PCR Influ A (H1/) PCR Influenza A (H3) PCR Influenza B (RT-PCR) M. pneumoniae (PCR) Parainfluenza 1 (PCR) Parainfluenza 2 (PCR) Parainfluenza 3 (PCR) Parainfluenza 4 (PCR) RSV (PCR) Entero/Rhino (PCR) SARS-CoV-2 RNA (RT-PCR) Assessment and Plan (1) Acute on chronic diastolic CHF (congestive heart failure): Status: Acute Plan 89-year-old female with a history of HFrEF (EF 25%), pneumonia, hyperlipidemia, IBS-D, CKD 3b, GERD, chronic LBBB, diabetes mellitus, recent diverticulitis and anemia, presenting with shortness of breath. Found to have acute on chronic heart failure exacerbation likely secondary to medication compliance, ANG on CKD3 and hyperkalemia Acute on Chronic HFrEF (EF 25%) Patient likely has acute exacerbation similar to her prior presentation in the setting of not having any diuretics, medication noncompliance, not adhering to a low-sodium diet Lasix 40 IV b.i.d. I's and o's, electrolytes, daily weights Process Control Board Operator fluid status ANG on CKD 3 Likely prerenal azotemia, cardiorenal Likely secondary to medication noncompliance Improving with diuretics Daily CMP History of NSVT During prior admission for similar concerns of SOB had a nonsustained VT Pt started on amiodarone load on 01/07/2025 and supposed to be on 200 mg daily However, amiodorone not on med rec Monitor, consider re-starting amiodorone Cardiology for med management NSTEMI, Type 2 Serial trops flat, lower than previous Likely type 2 in setting of increased demand Pt asymptomatic, EKG similar to previous Pt has been advised for outpatient cardiac catheterization given her clinical comorbidities Diabetes Mellitus A1c 6.9 ISS while inpatient Hold home meds Chronic Anemia Stable, at baseline Monitor Thyroid Nodule Incidental finding on imaging Outpatient thyroid ultrasound is recommended. Renal nephrolithiasis Outpatient management Code status DNR DNI Pt requires continued hospitalization due to need for continued diuresing for close monitoring of ANG and volume status. pt will also need Cardiology consultation for medication management. Quality Stroke Does the patient have a stroke diagnosis?: No VTE Prior VTE?: No VTE Risk Level:: Medical - moderate - high VTE Device Contraindication: N/A - Device Ordered VTE Drug Contraindication: N/A - Med Ordered
[2025-02-14 19:15] VITALS: BP 129/84; PULSE 91; RESP 18; TEMP 36.7; O2SAT 96
[2025-02-14 20:34] LABS: Glucose, Whole Blood 312 mg/dL (60-115)
[2025-02-14 23:13] VITALS: BP 130/61; PULSE 79; RESP 18; TEMP 36.7; O2SAT 97
--- NOTE | 2025-02-15 02:41 | PC.NURSE ---
2200 boot maker, Meek Black at bedside, Patient expressed to bread jockey that she feels she is sleeping to much and that she feels like she is sinking down into a deep sleep and hard to wake up at times. Gabapentin held as patient was found to be difficult to arouse initially from sleep and required a raised voice and tactile stimuli, tapping shoulders to wake from sleep, Pt oriented x 4 and expressed her concerns over medications being given to her. Reassurance provided and medications held per patient request. Pt repositioned on her side to promote rest and sleep. Patient denying pain at this time. VSS. Dr. Nazario notified
[2025-02-15 03:12] VITALS: BP 147/67; PULSE 72; RESP 18; TEMP 36.4; O2SAT 96
[2025-02-15 05:12] LABS: MANUAL DIFF FLAG NO
[2025-02-15 05:15] LABS: Hematocrit 35.5 % (37.0-47.0); Hemoglobin 11.2 g/dl (12.0-16.0); Imm Gran Abs Auto 0.01 X10*3/uL (0.00-0.03); Imm Gran Pct Auto 0.1 % (0.0-0.4); Lymphocytes Absolute Auto 1.7 X10*3/uL (1.2-4.9); Mean Corpuscular HGB Conc 31.5 g/dl (31.0-35.0); Mean Corpuscular Hemoglobin 27.3 pg (27.0-33.0); Mean Corpuscular Volume 86.6 fL (80.0-98.0); NRBC Abs Auto 0.000 X10*3/uL (0.0-0.012); NRBC Pct Auto 0.0 /100WBC (0.0-0.2); Platelet Count 229 X10*3/uL (160-400); Red Blood Count 4.10 X10*6/uL (4.20-5.50); Venous Blood Gas Refer to POC result; White Blood Count 6.7 X10*3/uL (4.8-10.8)
[2025-02-15 05:16] LABS: VBG HCO3 31 mmol/L (22-26); VBG O2 % Saturation 56.0 %
[2025-02-15 05:40] LABS: Alanine Aminotransferase 26 U/L (0-31); Albumin Level 4.5 g/dL (3.5-5.0); Alkaline Phosphatase 114 U/L (39-117); Anion Gap 15 (12-20); Aspartate Amino Transferase 35 U/L (5-31); Blood Urea Nitrogen 48 mg/dL (9-16); Calcium 9.6 mg/dL (8.4-10.2); Carbon Dioxide 27 mmol/L (22-29); Chloride 105 mmol/L (96-108); Creatinine Clr Calc Pharmacy 20.3; Estimated Glomerular Filt Rate 27; Magnesium 2.1 mg/dL (1.6-2.6); Potassium 4.4 mmol/L (3.3-5.1); Sodium 143 mmol/L (135-145); Total Protein 7.6 g/dL (6.5-8.0)
[2025-02-15 07:45] LABS: Glucose, Whole Blood 83 mg/dL (60-115)
[2025-02-15 07:54] VITALS: BP 156/65; PULSE 75; RESP 16; TEMP 36.3; O2SAT 96
[2025-02-15] MEDS: Aspirin Enteric Coated 81 MG TABLET.DR PO (08:24)
[2025-02-15] MEDS: Mirabegron 50 MG TAB.ER.24H PO (08:24)
[2025-02-15] MEDS: 0.9 % Sodium Chloride Flush 3 ML SYRINGE IVFLUSH ×3 (08:26→21:21)
[2025-02-15 08:30] LABS: NT Pro B Type Natriuretic Pept 1143.3 pg/mL (<300)
--- NOTE | 2025-02-15 09:50 | P.CONCA_ITS ---
History of Present Illness History of Present Illness Date of Service: 02/15/25 Chief complaint: ANG Narrative: We have been asked to see Brit Goins in cardiac evaluation. Last seen by Paz Philip in our clinic few weeks back. Listed to have many comorbidities including hypertension, dyslipidemia, diabetes, CKD, left bundle-branch block, NSTEMI with abnormal stress test but declined cardiac catheterization. Per discharge summary last month, listed to be on furosemide 40 mg daily along with spironolactone, Jardiance, Entresto and amiodarone. Unclear what she is actually taking at home. Current admission is again for shortness of breath and thought to be in congestive heart failure and there was question of ANG and hyperkalemia as well. Currently, she states she feels well and she is not sure why she is here. She is denying any shortness of breath or acute symptoms. Review of Systems 2 Review of Systems: Yes all other systems are reviewed and are negative Constitutional: Constitutional: Reports as per HPI and Reports no additional constitutional complaints Eyes: Eyes: Reports as per HPI and Denies no additional eye complaints ENT: Denies system reviewed and no additional complaints, except as documented and Reports as per HPI Cardiovascular: Cardiovascular: Reports as per HPI, Reports no additional cardiovascular complaints, Denies acrocyanosis, Denies cool extremities, Denies chest pain, Denies leg edema, Denies lightheadedness, Denies palpitations and Denies dyspnea Respiratory: Respiratory: Reports as per HPI, Denies no additional respiratory complaints and Denies dyspnea Gastrointestinal: Gastrointestinal: Reports as per HPI and Denies no additional gastrointestinal complaints Genitourinary: Genitourinary: Reports as per HPI Musculoskeletal: Musculoskeletal: Reports no additional musculoskeletal complaints and Reports as per HPI Integumentary/Breasts: Skin/Breast: Reports system reviewed and no additional complaints, except as docu Neurologic: Reports system reviewed and no additional complaints, except as documented and Reports as per HPI Psychiatric: Psychiatric: Reports no additional psychiatric complaints and Reports as per HPI Endocrine: Endocrine: Reports no additional endocrine complaints, Reports as per HPI and Denies palpitations Hematologic/Lymphatic: Hematologic/Lymphatic: Reports no additional hematologic/lymphatic complaints and Reports as per HPI Allergic/Immunologic: Allergic/Immunologic: Reports no additional allergic/immunologic complaints and Reports as per HPI PMFSH Past Medical History Medical History Congestive heart failure Heart failure with reduced ejection fraction Anemia Prolapsed hemorrhoids Diabetic nephropathy with proteinuria Hyperlipidemia HTN (hypertension) IBS (irritable bowel syndrome) Prolapsed internal hemorrhoids Chronic kidney disease, stage III (moderate) Obesity (BMI 30-39.9) Mixed hyperlipidemia Hypertensive heart disease Left bundle branch block Bladder prolapse Diabetes mellitus GERD (gastroesophageal reflux disease) Family History Family History Father No problems noted. Mother No problems noted. Family/Other Lung cancer Esophagus cancer Other Mental health disorder Substance use disorder Surgical History Surgical History History of bladder repair surgery History of ERCP History of bilateral cataract extraction History of cholecystectomy History of excision of mass History of colonoscopy History of ankle surgery Social History Social History Household Members: Family Household Members Other:: son/grandson Housing: Apartment Do you presently have visiting nurse or other home services: Yes (granddaughter [employer] MANAGER) Alcohol intake: never Patient Tobacco Use Status: Former Tobacco user e-Cigarette/Vaping Use: Never Used Second Hand Smoke Exposure: No Advance Directives Date on File: 11/11/24 service: No Current occupational status: disabled Cognitive needs: Yes (cane/walker) Hearing needs: No Vision needs: Yes (glasses) Meds Allergies Allergy/AdvReac Type Severity Reaction Status Date / Time Iodinated Contrast Media (IV Allergy Unknown UNKNOWN Verified 02/13/25 08:50 CONTRAST) Active Medications: Current Medications Acetaminophen (Acetaminophen 325 Mg Tablet) 650 mg PO Q6H PRN PRN Reason: Pain, Mild 1-3,fever,headache Last Admin: 02/14/25 05:41 Dose: 650 mg Albuterol/Ipratropium (Albuterol/Iprat 2.5/0.5mg 3 Ml Ampul.Neb) 3 ml INHALE QID PRN PRN Reason: Shortness of Breath/Wheezing Aspirin (Aspirin Enteric Coated 81 Mg Tablet.) 81 mg PO DAILY [facility] Last Admin: 02/15/25 08:24 Dose: 81 mg Atorvastatin Calcium (Atorvastatin Calcium 20 Mg Tablet) 20 mg PO BEDTIME [facility] Last Admin: 02/14/25 22:28 Dose: 20 mg Benzonatate (Benzonatate 100 Mg Capsule) 100 mg PO TID PRN PRN Reason: Cough Calcium Carbonate (Calcium Carbonate 750 Mg Tab.Chew) 750 mg PO Q4H PRN PRN Reason: Heartburn Dextrose (Dextrose 50 % 25 Gm/50 Ml Syringe) 25 gm IVPUSH Q15M PRN; Protocol PRN Reason: per Hypoglycemia Standing Ord. Docusate Sodium (Docusate Sodium 100 Mg Capsule) 100 mg PO BID [facility] Last Admin: 02/15/25 08:26 Dose: Not Given Empagliflozin (Empagliflozin 10 Mg Tablet) 10 mg PO DAILY [facility] Last Admin: 02/15/25 08:25 Dose: 10 mg Gabapentin (Gabapentin 100 Mg Capsule) 100 mg PO BID [facility] Last Admin: 02/15/25 08:24 Dose: 100 mg Glucose (Glucose Gel 15 Gm Gel..Gram.) 15 gm PO Q15M PRN; Protocol PRN Reason: per Hypoglycemia Standing Ord. Heparin Sodium (Porcine) (Heparin Sodium,Porcine 5,000 Unit/Ml Vial) 5,000 unit SUBCUT Q8H [facility] Last Admin: 02/15/25 08:24 Dose: 5,000 unit Sodium Chloride (Ns) 1,000 mls @ 75 mls/hr IVCONT .[id number] [facility] On Hold: 02/15/25 09:15 Last Admin: 02/15/25 09:18 Dose: Not Given Insulin Human Lispro (Insulin Lispro 100 Unit/Ml 3 Ml Vial) 0 unit SUBCUT QIDACHS [facility]; Protocol Last Admin: 02/15/25 07:47 Dose: Not Given Meclizine HCl (Meclizine Hcl 25 Mg Tablet) 25 mg PO DAILY PRN PRN Reason: motion sickness Melatonin (Melatonin 3 Mg Tablet) 6 mg PO BEDTIME PRN PRN Reason: Insomnia Mirabegron (Mirabegron 50 Mg Tab.Er.24h) 50 mg PO DAILY [facility] Last Admin: 02/15/25 08:24 Dose: 50 mg Ondansetron HCl (Ondansetron Hcl 4 Mg/2 Ml Vial) 4 mg IVPUSH Q8H PRN PRN Reason: Nausea and Vomiting Pantoprazole Sodium (Pantoprazole Sodium 40 Mg/10 Ml Vial) 40 mg IVPUSH DAILY@0630 [facility] Last Admin: 02/15/25 06:18 Dose: 40 mg Polyethylene Glycol (Polyethylene Glycol 3350 17 Gm Powd.Pack) 17 gm PO DAILY PRN PRN Reason: Constipation Senna (Sennosides 8.6 Mg Tablet) 17.2 mg PO BEDTIME [facility] Last Admin: 02/14/25 22:28 Dose: Not Given Sodium Chloride (0.9 % Sodium Chloride Flush 3 Ml Syringe) 3 ml IVFLUSH QSHIFT [facility] Last Admin: 02/15/25 08:26 Dose: 3 ml Spironolactone (Spironolactone 25 Mg Tablet) 25 mg PO DAILY [facility]; Protocol Last Admin: 02/15/25 08:25 Dose: 25 mg Home Medications ?Medication ?Instructions ?Recorded ?Confirmed ?Last Taken ?Type mirabegron 50 mg tablet,extended 50 mg PO DAILY 02/13/25 02/12/25 History release 24 hr (Myrbetriq) lidocaine 4 % topical patch 1 patch topical DAILY PRN Pain 12/16/24 02/13/25 Unknown History dulaglutide 0.75 mg/0.5 mL 0.75 mg subcut MO 01/07/25 02/13/25 02/08/25 History subcutaneous pen injector (Trulicity) furosemide 40 mg tablet 40 mg PO DAILY 02/13/2501/3002/12/25 History insulin glargine U-300 conc 300 20 unit subcut DAILY P RN 02/13/25 02/13/25 Unknown History unit/mL (1.5 mL) subcutaneous pen Hyperglycemia (Toujeo SoloStar U-300 Insulin) losartan 50 mg tablet 50 mg PO DAILY 02/13/2501/3002/12/25 History omeprazole 20 mg capsule,delayed 20 mg PO DAILY@0630 1 04/15/24 02/13/25 02/12/25 History release Physical Exam 2 Vital Signs: Vital Signs: Last Vital Signs Temp 97.3 F 02/15/25 07:54 Pulse 75 02/15/25 07:54 Resp 16 02/15/25 07:54 BP 156/65 H 02/15/25 07:54 Pulse Ox 96 02/15/25 07:54 O2 Del Method Room Air 02/15/25 07:54 BMI result Body Mass Index 27.5 Const: General: comfortable and no acute distress O rientation/consciousness: patient oriented x3 HEENT: Other: Unremarkable Head: Yes normal to inspection Neck: Neck: Yes normal visual inspection Chest: Chest palpation & inspection: normal inspection of the chest Resp: Auscultation: clear to auscultation bilaterally Cardio: Palpation: normal PMI Heart sounds: S1 normal heart sound present, S2 normal heart sound present, no gallops, no murmurs and no rubs GI: Palpation (GI): Soft to palpation Back/Spine/Pelvis: Other: unremarkable Skin: General skin exam: no rashes or lesions noted Neuro: General: patient oriented x3 Extrem: General: Yes normal to inspection Psych: Mental Status: mental status grossly normal Objective Labs and Meds 02/15/25 05:03 02/15/25 05:04 Lab results: Laboratory Results - last 24 hr 02/14/25 02/14/25 02/14/25 11:08 15:25 19:48 WBC RBC Hgb Hct MCV MCH MCHC RDW Plt Count MPV Immature Gran % (Auto) Neut % (Auto) Lymph % (Auto) Titus % (Auto) Eos % (Auto) Baso % (Auto) Lymph # (Auto) Titus # (Auto) Eos # (Auto) Baso # (Auto) Abs Immat Gran (auto) Absolute Neuts (auto) Absolute Nucleated RBC Nucleated RBC % (auto) VBG pH VBG pCO2 VBG pO2 VBG HCO3 VBG O2 Saturation VBG Base Excess Sodium Potassium Chloride Carbon Dioxide Anion Gap BUN Creatinine Estim Creat Clear Calc Estimated GFR POC Glucose 118 H 170 H 312 H Random Glucose Calcium Magnesium Total Bilirubin AST ALT Alkaline Phosphatase NT-Pro-B Natriuret Pep Total Protein Albumin 02/15/25 02/15/25 02/15/25 05:03 05:04 05:12 WBC 6.7 RBC 4.10 L Hgb 11.2 L Hct 35.5 L MCV 86.6 MCH 27.3 MCHC 31.5 RDW 14.8 Plt Count 229 D MPV 10.1 Immature Gran % (Auto) 0.1 Neut % (Auto) 67.7 Lymph % (Auto) 25.2 Titus % (Auto) 5.8 Eos % (Auto) 0.9 Baso % (Auto) 0.3 Lymph # (Auto) 1.7 Titus # (Auto) 0.4 Eos # (Auto) 0.1 Baso # (Auto) 0.0 Abs Immat Gran (auto) 0.01 Absolute Neuts (auto) 4.5 Absolute Nucleated RBC 0.000 Nucleated RBC % (auto) 0.0 VBG pH 7.39 VBG pCO2 50 VBG pO2 39 VBG HCO3 31 H VBG O2 Saturation 56.0 VBG Base Excess 5.1 Sodium 143 Potassium 4.4 Chloride 105 Carbon Dioxide 27 Anion Gap 15 BUN 48 H Creatinine 1.76 H Estim Creat Clear Calc 20.3 Estimated GFR 27 POC Glucose Random Glucose 97 Calcium 9.6 D Magnesium 2.1 Total Bilirubin 0.4 AST 35 H ALT 26 Alkaline Phosphatase 114 NT-Pro-B Natriuret Pep 1143.3 H Total Protein 7.6 Albumin 4.5 02/15/25 07:41 WBC RBC Hgb Hct MCV MCH MCHC RDW Plt Count MPV Immature Gran % (Auto) Neut % (Auto) Lymph % (Auto) Titus % (Auto) Eos % (Auto) Baso % (Auto) Lymph # (Auto) Titus # (Auto) Eos # (Auto) Baso # (Auto) Abs Immat Gran (auto) Absolute Neuts (auto) Absolute Nucleated RBC Nucleated RBC % (auto) VBG pH VBG pCO2 VBG pO2 VBG HCO3 VBG O2 Saturation VBG Base Excess Sodium Potassium Chloride Carbon Dioxide Anion Gap BUN Creatinine Estim Creat Clear Calc Estimated GFR POC Glucose 83 Random Glucose Calcium Magnesium Total Bilirubin AST ALT Alkaline Phosphatase NT-Pro-B Natriuret Pep Total Protein Albumin Assessment and Plan (1) Acute on chronic combined systolic and diastolic CHF (congestive heart failure): Status: Acute (2) Left bundle branch block: Status: Acute (3) ANG (acute kidney injury): Status: Acute Plan In the recent echocardiogram, LVEF is 25-30%. No significant valvular findings. EKGs show sinus rhythm with left bundle-branch block. BNP levels were around 10,000 but then improved to 507 and now 1143. Based on these BNP levels, do not believe she is in acute heart failure. It appears that diuretics are back on hold. She is continued on spironolactone and Jardiance. Entresto is also on hold. Amiodarone is no longer listed and may have to be put back on. Otherwise, ambulate her and start discharge planning. Ideally, consider [facility] but I am not clear if she is going to agree to it or will understand the process. Follow up in clinic. Discussed with patient as well as daughter using taker off drying kiln. Procedures Date of Service Date of Service: 02/15/25
--- NOTE | 2025-02-15 10:34 | MHC.CM.PN ---
Per ROUNDS discussion, Patient is not yet medically cleared for dc (worsening Kidney Function); PT recommends home with services and CM will continue to follow.
[2025-02-15 11:09] LABS: Glucose, Whole Blood 159 mg/dL (60-115)
[2025-02-15 11:46] VITALS: BP 130/69; PULSE 91; RESP 16; TEMP 36.2; O2SAT 97
--- NOTE | 2025-02-15 12:05 | MHC.CM.PN ---
Patient has been changed from OBSERVATION to INPATIENT; CM met with Patient and her Daughter/HCP & Son-in-Law and addressed IMM with them.
[2025-02-15 16:00] VITALS: BP 132/78; PULSE 87; RESP 16; TEMP 36.6; O2SAT 98
[2025-02-15 16:19] LABS: Glucose, Whole Blood 232 mg/dL (60-115)
--- NOTE | 2025-02-15 18:40 | HO.PM.IMPN ---
Subjective Subjective Date of Service: 02/15/25 Interval History: No acute events overnight Reports being a little tired Otherwise no complaints Creatinine worsened slightly this morning Review of Systems Review of Systems: Yes all other systems are reviewed and are negative Physical Exam Exam: Exam: General: AOx3, no acute distress ENT: Mucous membraines dry Resp: CTA bilaterally CVS: S1, S2, RRR; no JVD GI: +BS, NT, no distention Skin: Warm, dry Neuro: Cranial nerves II-XII grossly intact bilaterally. Motor grossly intact bilaterally Extremities: No edema Psych: Appropriate affect Vital Signs: Vital Signs: Last Vital Signs Temp 97.8 F 02/15/25 16:00 Pulse 87 02/15/25 16:00 Resp 16 02/15/25 16:00 BP 132/78 02/15/25 16:00 Pulse Ox 98 02/15/25 16:00 O2 Del Method Room Air 02/15/25 16:00 BMI result Body Mass Index 27.5 Objective Data Active Medications Acetaminophen (Acetaminophen 325 Mg Tablet) 650 mg PO Q6H PRN PRN Reason: Pain, Mild 1-3,fever,headache Last Admin: 02/14/25 05:41 Dose: 650 mg Documented By: ÁNGEL Albuterol/Ipratropium (Albuterol/Iprat 2.5/0.5mg 3 Ml Ampul.Neb) 3 ml INHALE QID PRN PRN Reason: Shortness of Breath/Wheezing Aspirin (Aspirin Enteric Coated 81 Mg Tablet.) 81 mg PO DAILY [facility] Last Admin: 02/15/25 08:24 Dose: 81 mg Documented By: BAMBI Atorvastatin Calcium (Atorvastatin Calcium 20 Mg Tablet) 20 mg PO BEDTIME [facility] Last Admin: 02/14/25 22:28 Dose: 20 mg Documented By: GAIL Benzonatate (Benzonatate 100 Mg Capsule) 100 mg PO TID PRN PRN Reason: Cough Calcium Carbonate (Calcium Carbonate 750 Mg Tab.Chew) 750 mg PO Q4H PRN PRN Reason: Heartburn Dextrose (Dextrose 50 % 25 Gm/50 Ml Syringe) 25 gm IVPUSH Q15M PRN; Protocol PRN Reason: per Hypoglycemia Standing Ord. Docusate Sodium (Docusate Sodium 100 Mg Capsule) 100 mg PO BID [facility] Last Admin: 02/15/25 08:26 Dose: Not Given Documented By: BAMBI Non-Admin Reason: Patient Refused Empagliflozin (Empagliflozin 10 Mg Tablet) 10 mg PO DAILY [facility] Last Admin: 02/15/25 08:25 Dose: 10 mg Documented By: BAMBI Gabapentin (Gabapentin 100 Mg Capsule) 100 mg PO BID [facility] Last Admin: 02/15/25 08:24 Dose: 100 mg Documented By: BAMBI Glucose (Glucose Gel 15 Gm Gel..Gram.) 15 gm PO Q15M PRN; Protocol PRN Reason: per Hypoglycemia Standing Ord. Heparin Sodium (Porcine) (Heparin Sodium,Porcine 5,000 Unit/Ml Vial) 5,000 unit SUBCUT Q8H [facility] Last Admin: 02/15/25 16:37 Dose: 5,000 unit Documented By: BAMBI Sodium Chloride (Ns) 1,000 mls @ 75 mls/hr IVCONT .[id number] [facility] Stop: 02/15/25 21:30 Last Admin: 02/15/25 09:18 Dose: Not Given Documented By: BAMBI Non-Admin Reason: Physician Held Med Insulin Human Lispro (Insulin Lispro 100 Unit/Ml 3 Ml Vial) 0 unit SUBCUT QIDACHS [facility]; Protocol Last Admin: 02/15/25 16:37 Dose: 4 unit Documented By: BAMBI Meclizine HCl (Meclizine Hcl 25 Mg Tablet) 25 mg PO DAILY PRN PRN Reason: motion sickness Melatonin (Melatonin 3 Mg Tablet) 6 mg PO BEDTIME PRN PRN Reason: Insomnia Mirabegron (Mirabegron 50 Mg Tab.Er.24h) 50 mg PO DAILY [facility] Last Admin: 02/15/25 08:24 Dose: 50 mg Documented By: BAMBI Ondansetron HCl (Ondansetron Hcl 4 Mg/2 Ml Vial) 4 mg IVPUSH Q8H PRN PRN Reason: Nausea and Vomiting Pantoprazole Sodium (Pantoprazole Sodium 40 Mg/10 Ml Vial) 40 mg IVPUSH DAILY@0630 [facility] Last Admin: 02/15/25 06:18 Dose: 40 mg Documented By: IRIS Polyethylene Glycol (Polyethylene Glycol 3350 17 Gm Powd.Pack) 17 gm PO DAILY PRN PRN Reason: Constipation Senna (Sennosides 8.6 Mg Tablet) 17.2 mg PO BEDTIME [facility] Last Admin: 02/14/25 22:28 Dose: Not Given Documented By: GAIL Non-Admin Reason: Patient Refused Sodium Chloride (0.9 % Sodium Chloride Flush 3 Ml Syringe) 3 ml IVFLUSH QSHIFT [facility] Last Admin: 02/15/25 16:41 Dose: 3 ml Documented By: BAMBI Spironolactone (Spironolactone 25 Mg Tablet) 25 mg PO DAILY [facility]; Protocol Last Admin: 02/15/25 08:25 Dose: 25 mg Documented By: BAMBI Labs 02/15/25 05:03 02/15/25 05:04 Labs: Laboratory Results - last 24 hr 02/14/25 02/15/25 02/15/25 19:48 05:03 05:04 MCV 86.6 MCH 27.3 MCHC 31.5 RDW 14.8 Plt Count 229 D MPV 10.1 Immature Gran % (Auto) 0.1 Neut % (Auto) 67.7 Lymph % (Auto) 25.2 Ray % (Auto) 5.8 Eos % (Auto) 0.9 Baso % (Auto) 0.3 Lymph # (Auto) 1.7 Ray # (Auto) 0.4 Eos # (Auto) 0.1 Baso # (Auto) 0.0 Abs Immat Gran (auto) 0.01 Absolute Neuts (auto) 4.5 Absolute Nucleated RBC 0.000 Nucleated RBC % (auto) 0.0 VBG pH VBG pCO2 VBG pO2 VBG HCO3 VBG O2 Saturation VBG Base Excess Anion Gap 15 Estim Creat Clear Calc 20.3 Estimated GFR 27 POC Glucose 312 H Random Glucose 97 Calcium 9.6 D Magnesium 2.1 Total Bilirubin 0.4 AST 35 H ALT 26 Alkaline Phosphatase 114 NT-Pro-B Natriuret Pep 1143.3 H Total Protein 7.6 Albumin 4.5 02/15/25 02/15/25 02/15/25 05:12 07:41 11:04 MCV MCH MCHC RDW Plt Count MPV Immature Gran % (Auto) Neut % (Auto) Lymph % (Auto) Ray % (Auto) Eos % (Auto) Baso % (Auto) Lymph # (Auto) Ray # (Auto) Eos # (Auto) Baso # (Auto) Abs Immat Gran (auto) Absolute Neuts (auto) Absolute Nucleated RBC Nucleated RBC % (auto) VBG pH 7.39 VBG pCO2 50 VBG pO2 39 VBG HCO3 31 H VBG O2 Saturation 56.0 VBG Base Excess 5.1 Anion Gap Estim Creat Clear Calc Estimated GFR POC Glucose 83 159 H Random Glucose Calcium Magnesium Total Bilirubin AST ALT Alkaline Phosphatase NT-Pro-B Natriuret Pep Total Protein Albumin 02/15/25 16:16 MCV MCH MCHC RDW Plt Count MPV Immature Gran % (Auto) Neut % (Auto) Lymph % (Auto) Ray % (Auto) Eos % (Auto) Baso % (Auto) Lymph # (Auto) Ray # (Auto) Eos # (Auto) Baso # (Auto) Abs Immat Gran (auto) Absolute Neuts (auto) Absolute Nucleated RBC Nucleated RBC % (auto) VBG pH VBG pCO2 VBG pO2 VBG HCO3 VBG O2 Saturation VBG Base Excess Anion Gap Estim Creat Clear Calc Estimated GFR POC Glucose 232 H Random Glucose Calcium Magnesium Total Bilirubin AST ALT Alkaline Phosphatase NT-Pro-B Natriuret Pep Total Protein Albumin Microbiology Microbiology Results: Microbiology 02/13/25 16:50 Blood Culture - Preliminary Blood - Venous No growth after 24 hours. 02/13/25 16:50 Blood Culture - Preliminary Blood - Venous No growth after 24 hours. Blood Culture - Preliminary No growth after 24 hours. Assessment and Plan (1) ANG (acute kidney injury): Status: Acute Plan 89-year-old female with a history of HFrEF (EF 25%), pneumonia, hyperlipidemia, IBS-D, CKD 3b, GERD, chronic LBBB, diabetes mellitus, recent diverticulitis and anemia, presenting with shortness of breath. Found to have acute on chronic heart failure exacerbation likely secondary to medication compliance, ANG on CKD3 and hyperkalemia ANG on CKD 3 Creatinine worsening slightly today while on IV diuretics for possible CHF exacerbation ANG likely secondary to home diuretic use Pt with hx of HFrEF since at least 04/09/2023, though only recently started home diuretics: Lasix 20mg po prn on 12/24/24, then Lasix 40mg daily and spironolactone 25mg daily on 01/10/2025 Pt received gentle IVF: 500cc @75ml/h Hold diuretics Monitor creatinine Hx of HFrEF (EF 25%) Pt does not appear in acute exacerbation; instead appears dry IVF and hold diuretics as above Monitor fluid status History of NSVT During prior admission for similar concerns of SOB had a nonsustained VT Pt started on amiodarone load on 01/07/2025 and discharged on maintenance of 200 mg daily Amiodorone stopped a week or two after discharge due to intolerance NSTEMI, Type 2 Serial trops flat, lower than previous Likely type 2 in setting of increased demand Pt asymptomatic, EKG similar to previous Pt has been advised for outpatient cardiac catheterization given her clinical comorbidities Diabetes Mellitus A1c 6.9 ISS while inpatient Hold home meds Chronic Anemia Stable, at baseline Monitor Thyroid Nodule Incidental finding on imaging Outpatient thyroid ultrasound is recommended. Renal nephrolithiasis Outpatient management Code status DNR DNI Pt requires continued hospitalization due to need for continued monitoring of creatinine to ensure resolution of ANG. Quality Stroke Does the patient have a stroke diagnosis?: No VTE Prior VTE?: No VTE Risk Level:: Medical - moderate - high VTE Device Contraindication: N/A - Device Ordered VTE Drug Contraindication: N/A - Med Ordered
[2025-02-15 18:59] VITALS: BP 121/58; PULSE 92; RESP 18; TEMP 36.6; O2SAT 97
[2025-02-15 20:28] LABS: Glucose, Whole Blood 140 mg/dL (60-115)
[2025-02-15 23:18] VITALS: BP 154/66; PULSE 80; RESP 18; TEMP 36.2; O2SAT 94
[2025-02-16 03:06] VITALS: BP 145/65; PULSE 77; RESP 18; TEMP 36.2; O2SAT 99
[2025-02-16 06:44] LABS: MANUAL DIFF FLAG NO
[2025-02-16 07:03] LABS: Hematocrit 33.2 % (37.0-47.0); Hemoglobin 10.4 g/dl (12.0-16.0); Imm Gran Abs Auto 0.01 X10*3/uL (0.00-0.03); Imm Gran Pct Auto 0.2 % (0.0-0.4); Lymphocytes Absolute Auto 2.2 X10*3/uL (1.2-4.9); Mean Corpuscular HGB Conc 31.3 g/dl (31.0-35.0); Mean Corpuscular Hemoglobin 27.7 pg (27.0-33.0); Mean Corpuscular Volume 88.5 fL (80.0-98.0); NRBC Abs Auto 0.000 X10*3/uL (0.0-0.012); NRBC Pct Auto 0.0 /100WBC (0.0-0.2); Platelet Count 194 X10*3/uL (160-400); Red Blood Count 3.75 X10*6/uL (4.20-5.50); White Blood Count 5.4 X10*3/uL (4.8-10.8)
[2025-02-16 07:08] LABS: Glucose, Whole Blood 92 mg/dL (60-115)
[2025-02-16 07:15] VITALS: BP 158/65; PULSE 75; RESP 16; TEMP 36.2; O2SAT 97
[2025-02-16 07:16] LABS: Alanine Aminotransferase 21 U/L (0-31); Albumin Level 4.0 g/dL (3.5-5.0); Alkaline Phosphatase 96 U/L (39-117); Anion Gap 12 (12-20); Aspartate Amino Transferase 27 U/L (5-31); Blood Urea Nitrogen 39 mg/dL (9-16); Calcium 8.8 mg/dL (8.4-10.2); Carbon Dioxide 27 mmol/L (22-29); Chloride 108 mmol/L (96-108); Creatinine Clr Calc Pharmacy 24.2; Estimated Glomerular Filt Rate 33; Magnesium 2.1 mg/dL (1.6-2.6); Potassium 4.3 mmol/L (3.3-5.1); Sodium 143 mmol/L (135-145); Total Protein 6.8 g/dL (6.5-8.0)
[2025-02-16] MEDS: Mirabegron 50 MG TAB.ER.24H PO (09:07)
[2025-02-16] MEDS: Aspirin Enteric Coated 81 MG TABLET.DR PO (09:07)
[2025-02-16] MEDS: 0.9 % Sodium Chloride Flush 3 ML SYRINGE IVFLUSH (09:18)
[2025-02-16 11:06] LABS: Glucose, Whole Blood 155 mg/dL (60-115)
[2025-02-16 11:07] VITALS: BP 126/53; PULSE 97; RESP 16; TEMP 36.3; O2SAT 94
--- NOTE | 2025-02-16 13:04 | PM.DS ---
DS: Providers Provider Date of Service: 02/16/25 Date of admission: 02/15/25 11:55 Date of discharge: 02/16/25 Primary care physician: Rico Deras MD Consults: 02/14/25 18:35 Consult to Cardiology Routine Consulting Provider: [facility] Reason for consultation: CHF, supposed to be on amiodorone since 01/08? DS: Diagnosis Discharge Diagnosis (1) ANG (acute kidney injury): Status: Acute DS: Summary Hospital Course Hospital Course: From admission HPI: Date of Service: 02/13/25 Chief Complaint: SOB/GRIFFIN since morning Patient is a 89-year-old female with a history of HFrEF (EF 25%), pneumonia, hyperlipidemia, IBS-D, CKD 3b, GERD, chronic LBBB, diabetes mellitus, recent diverticulitis and anemia, presenting with shortness of breath. She was just discharged a month ago for similar concerns and was noted to have AE HFrEF, and SVT and was initiated on amiodarone. Patient likely has some mild cognitive dysfunction as she has been stating that she does not know she has gradually declining heart function. Unsure compliance as she has been started on Jardiance and spironolactone as well. She apparently had 2 large bananas, denies any sick contacts at home, no fever. Just had some mild shortness of breath and dyspnea on exertion since waking up this morning. In the ED, have initiated her sepsis workup, started her on antibiotics, she was also noted to have ANG on CKD 3, likely in the setting of worsening HFrEF and likely would benefit from gentle hydration, for hyperkalemia I am giving her albuterol, insulin, Lokelma. Patient was quite tearful and did not want to get admitted , throughout this conversation patient's daughter and granddaughter were at the bedside and daughter was translating Patient stating ?I do not want to stay here In the ED-for hyperkalemia she continued to have ANG, despite a L of bolus, local and he EKG was unremarkable for any NSTEMI or STEMI, V paced rhythm, troponinemia - type II Hospital course: Pt was admitted to the hospital for hyperkalemia and ANG. Pt initially was treated with IVF with minimal improvement to ANG. Initial admitting concern was then for possible mild CHF exacerbation and ANG secondary to cardiorenal syndrome. Pt was given Lasix IV with initial improvement to creatinine but then worsening creatinine the following day. Ultimately, patient's ANG and hyperkalemia were deemed secondary to home furosemide and spironolactone use. Pt had a hx of HFrEF since at least 04/09/2023 though only recently started on home diuretics: Was seen by Cardiology on 12/24/24 and started on Lasix 20 mg p.o. p.r.n.. However, pt then experienced CHF exacerbation less than 2 weeks later and was discharged from the hospital on 01/10/2025 on Lasix 40 mg daily and spironolactone 25 mg daily. Pt had not yet had repeat labs drawn after starting home diuretics. At time of discharge pt's creatinine improved enough to be safely discharged. Given her seeming intolerance to diuretics, these will be stopped at time of discharge. Pt should follow up with Cardiology in 1-2 weeks for monitoring of her fluid status and continued CHF management, including whether or not she should be on chronic low-dose diuretics. She should also follow up with her PCP for repeat labs to monitor for full normalization of creatinine. She should resume all of her other home medications. Additional details concerning hospital stay as indicated below. ANG on CKD 3 Creatinine improved to 1.48 today ANG likely secondary to home diuretic use only started one month ago Pt with hx of HFrEF since at least 04/09/2023, though only recently started home diuretics: Lasix 20mg po prn on 12/24/24, then Lasix 40mg daily and spironolactone 25mg daily on 01/10/2025 Pt received gentle IVF: 500cc @75ml/h Stop diuretics at time of discharge Monitor creatinine Hx of HFrEF (EF 25%) Pt does not appear in acute exacerbation; instead appears dry IVF and hold diuretics as above Monitor fluid status History of NSVT During prior admission for similar concerns of SOB had a nonsustained VT Pt started on amiodarone load on 01/07/2025 and discharged on maintenance of 200 mg daily Amiodorone stopped a week or two after discharge due to intolerance NSTEMI, Type 2 Serial trops flat, lower than previous Likely type 2 in setting of increased demand Pt asymptomatic, EKG similar to previous Pt has been advised for outpatient cardiac catheterization given her clinical comorbidities Diabetes Mellitus A1c 6.9 ISS while inpatient Hold home meds Chronic Anemia Stable, at baseline Monitor Thyroid Nodule Incidental finding on imaging Outpatient thyroid ultrasound is recommended. Renal nephrolithiasis Outpatient management Code status DNR DNI Time Attestation Discharge Coordination Time (in mins): 37 Quality: Safe Use of Opioids Does Pt have an Active Cancer Diagnosis on the Problem List?: No Quality: Stroke Does the patient have a stroke diagnosis?: No Physical Exam Exam: Exam: General: AOx3, no acute distress Resp: CTA bilaterally CVS: S1, S2, RRR GI: +BS, NT, no distention Skin: Warm, dry Neuro: Cranial nerves II-XII grossly intact bilaterally. Motor grossly intact bilaterally Extremities: No edema Psych: Appropriate affect Vital Signs: Vital Signs: Last Vital Signs Temp 97.3 F 02/16/25 11:07 Pulse 97 02/16/25 11:07 Resp 16 02/16/25 11:07 BP 126/53 L 02/16/25 11:07 Pulse Ox 94 02/16/25 11:07 O2 Del Method Room Air 02/16/25 11:07 BMI result Body Mass Index 27.5 DS: Data Data Completed and Pending Completed studies during hospitalization [Text1]: Procedures Transfusion of Nonautologous Red Blood Cells into Peripheral Vein, Percutaneous Approach (12/16/24) Labs on day of discharge: Laboratory Results - last 24 hr 02/15/25 02/15/25 02/16/25 16:16 20:15 06:17 WBC 5.4 RBC 3.75 L Hgb 10.4 L Hct 33.2 L MCV 88.5 MCH 27.7 MCHC 31.3 RDW 14.9 Plt Count 194 MPV 10.5 Immature Gran % (Auto) 0.2 Neut % (Auto) 48.4 Lymph % (Auto) 40.3 H [place] % (Auto) 8.1 Eos % (Auto) 2.6 Baso % (Auto) 0.4 Lymph # (Auto) 2.2 [place] # (Auto) 0.4 Eos # (Auto) 0.1 Baso # (Auto) 0.0 Abs Immat Gran (auto) 0.01 Absolute Neuts (auto) 2.6 Absolute Nucleated RBC 0.000 Nucleated RBC % (auto) 0.0 Sodium 143 Potassium 4.3 Chloride 108 Carbon Dioxide 27 Anion Gap 12 BUN 39 H Creatinine 1.48 H Estim Creat Clear Calc 24.2 Estimated GFR 33 POC Glucose 232 H 140 H Random Glucose 96 Calcium 8.8 D Magnesium 2.1 Total Bilirubin 0.4 AST 27 ALT 21 Alkaline Phosphatase 96 Total Protein 6.8 Albumin 4.0 02/16/25 02/16/25 06:54 11:01 WBC RBC Hgb Hct MCV MCH MCHC RDW Plt Count MPV Immature Gran % (Auto) Neut % (Auto) Lymph % (Auto) [place] % (Auto) Eos % (Auto) Baso % (Auto) Lymph # (Auto) [place] # (Auto) Eos # (Auto) Baso # (Auto) Abs Immat Gran (auto) Absolute Neuts (auto) Absolute Nucleated RBC Nucleated RBC % (auto) Sodium Potassium Chloride Carbon Dioxide Anion Gap BUN Creatinine Estim Creat Clear Calc Estimated GFR POC Glucose 92 155 H Random Glucose Calcium Magnesium Total Bilirubin AST ALT Alkaline Phosphatase Total Protein Albumin Preliminary micro results at discharge 02/13/25 16:50 Blood Culture - Preliminary Blood - Venous No growth after 48 hours. 02/13/25 16:50 Blood Culture - Preliminary Blood - Venous No growth after 48 hours. Blood Culture - Preliminary No growth after 48 hours. Discharge Plan Discharge Anticipated Discharge Date/Time: 02/16/25 12:48 Patient Disposition: Home Health Service Discharge Diagnosis: ANG Referrals: [facility] [Provider Group] - 1 Week Referral Note: Punctate nonobstructing right renal calculus. Otherwise, no ureteral stones or hydroureteronephrosis. [facility] [Outside] - 1 Week Physician,Unknown J [Physician, Medical] Discharge Medications: Continued (DME) bedside commode Kit See Rx Instructions .Route Qty: 1 0RF Rx Instructions: As directed (DME) blood-glucose meter [OneTouch Ultra2 Meter] Misc See Rx Instructions .Route Qty: 1 0RF Rx Instructions: test 3 times daily (DME) lancets [OneTouch UltraSoft 2 Lancet] 30 gauge misc See Rx Instructions .Route Qty: 100 12RF Rx Instructions: test 3 times per day (DME) Raised toilet seat with arms See Rx Instructions .Route .MEDSUPPLY Qty: 1 0RF Rx Instructions: As directed (DME) OneTouch Ultra Test Strip See Rx Instructions .Route Qty: 100 11RF Rx Instructions: test 3 times per day (DME) body wipes See Rx Instructions .Route .MEDSUPPLY Qty: 1 3RF Rx Instructions: As directed (DME) diaper,brief,adult,disposable Misc See Rx Instructions .Route Qty: 100 0RF Rx Instructions: As directed size mediun (DME) Disposable bed pads See Rx Instructions .Route .MEDSUPPLY Qty: 3 3RF Rx Instructions: As directed (DME) Adult pull ups medium See Rx Instructions .Route .MEDSUPPLY Qty: 240 11RF Rx Instructions: As directed carvedilol 6.25 mg tablet 6.25 mg PO BID Qty: 180 3RF Rx Instructions: must administer with a meal/food (DME) Disposable tiesha-pads See Rx Instructions .Route .MEDSUPPLY Qty: 240 11RF Rx Instructions: As directed aspirin [Adult Aspirin Regimen] 81 mg tablet,delayed release (DR/EC) 81 mg PO DAILY Qty: 90 3RF atorvastatin 20 mg tablet 20 mg PO BEDTIME Qty: 90 3RF tramadol 50 mg tablet 50 mg PO BID PRN (Reason: pain) Qty: 60 0RF Jardiance 10 mg tablet 10 mg PO DAILY Qty: 90 0RF meclizine [Motion Sickness Relief(mecliz)] 25 mg tablet 25 mg PO DAILY PRN (Reason: motion sickness) Qty: 14 0RF epinephrine [EpiPen 2-[place]] 0.3 mg/0.3 mL auto-injector 0.3 mg IM Q10M PRN (Reason: anaphylaxis) Qty: 1 0RF Rx Instructions: for 2 doses lidocaine 4 % Adhesive Patch,Medicated 1 patch TOPICAL DAILY PRN (Reason: Pain) Trulicity 0.75 mg/0.5 mL pen injector 0.75 mg subcut MO gabapentin 100 mg capsule 100 mg PO BID Qty: 60 0RF omeprazole 20 mg capsule,delayed release(DR/EC) 20 mg PO DAILY@0630 insulin glargine U-300 conc [Toujeo SoloStar U-300 Insulin] 300 unit/mL (1.5 mL) insulin pen 20 unit subcut DAILY PRN (Reason: Hyperglycemia) losartan 50 mg tablet 50 mg PO DAILY Myrbetriq 50 mg tablet extended release 24 hr 50 mg PO DAILY sacubitril-valsartan [Entresto] 24-26 mg tablet 1 tab PO BID Qty: 180 3RF (DME) Bed bar Hunter See Rx Instructions .Route .MEDSUPPLY Qty: 1 0RF Rx Instructions: As directed (DME) blood pressure monitor [Blood Pressure Kit] Kit See Rx Instructions .ROUTE .MEDSUPPLY Qty: 1 0RF Rx Instructions: As directed Discontinued spironolactone 25 mg Tablet 25 mg PO DAILY Qty: 90 0RF Protocol: Hold for SBP< HOLD for SBP < : 90 furosemide 40 mg tablet 40 mg PO DAILY Discharge Orders: Discharge Order (Routine); Ordered 02/16/25 Ordered By: Jose M Conley Activity on Discharge: As tolerated Stand Alone Forms: Patient Portal Discharge page Print Language: Upper Sorbian Activity Restrictions/Additional Instructions: Take your medications as prescribed. If you were prescribed antibiotics today, it is important that you take your medication to their entirety, do not skip any doses, do not finish them early. Follow-up with your primary care provider this week. Return to the emergency department with new or worsening symptoms. Such as fevers, chills, chest pain, shortness of breath, nausea, vomiting, dizziness, headache, vision changes, lethargy In case of emergency call 911 Care Plan Goals: See below Health Concerns: Acute kidney injury Hyperkalemia CHF Plan of Treatment: You were admitted to the hospital for elevated potassium and acute kidney injury that was likely caused by home diuretics that you were recently started on last month. You received gentle IV fluid resuscitation and your home diuretics were held with eventual improvement in your kidney function. At time of discharge your kidney function has improved enough that you are safe to be discharged home. You should stop taking your diuretics for now and follow up with cardiology for CHF management and whether to resume any these medications. -- STOP taking furosemide 40 mg daily -- STOP taking spironolactone 25 mg daily -- follow up with Cardiology in 1-2 weeks for continued CHF management and whether you should be on long-term diuretics -- follow up with your PCP in 1 week for repeat labs and routine post-hospitalization visit Assessment: See discharge summary Patient Instructions: Acute Kidney Injury (DC), Meal Planning with Diabetes Exchanges (DC), Low-Sodium Diet (ED), Fatigue (ED), Shortness of Breath (ED)
--- NOTE | 2025-02-16 13:08 | MHC.CM.PN ---
Patient has been medically cleared for dc to home today, with services. Patient is active with [facility], who has been notified of today's dc. Last IMM was addressed yesterday.
--- NOTE | 2025-02-16 13:30 | P.F2F_ITS ---
Service Date Service Date: 02/16/25 Encounter Date of encounter: 02/16/25 Reasons for Services Signs and symptoms assessed: Generalized weakness, unsteadiness on feet. Reason for senior care: medication management Reason for physical therapy: home safety and mobility, therapeutic exercises and gait/transfer training Homebound: Leaving the home is medically contraindicated at this time without the asist of a device and/or another person due th the listed conditions above and below. Reason homebound: unsteady gait / fall risk, leg weakness, poor balance / fall risk and weakness related to hospital stay Certification: Based on the above findings, I certify that this patient is confined to the home and needs intermittent senior care care, physical therapy and/or speech therapy, or continues to need occupational therapy. The patient is under my care, and I have initiated the establishment of the plan of care. The patient will be followed by a physician who will periodically review the plan of care. Time Spent With Patient Time: Total time managing care of this patient today ____ minutes.
== END 2025-02-16 14:24 | disposition home health service (06) | DRG 682 ==
LOC: HO.ED 14:17 → HO.EDOVER 16:01 → HO.IMC 23:33
PROVIDERS: Internal Medicine; Physician Assistant; Admitting Provider Student in an Organized Health Care Education/Training Program; Emergency Provider Emergency Medicine; PCP Internal Medicine; Visit Provider Student in an Organized Health Care Education/Training Program
DX: N17.9 Acute kidney failure, unspecified (principal); I21.A1 Myocardial infarction type 2; I50.23 Acute on chronic systolic (congestive) heart failure; I13.0 Hypertensive heart and chronic kidney disease with heart failure and stage 1 through stage 4 chronic kidney disease, or unspecified chronic kidney disease; Z66 Do not resuscitate; D63.1 Anemia in chronic kidney disease; I44.7 Left bundle-branch block, unspecified; T50.1X5A Adverse effect of loop [high-ceiling] diuretics, initial encounter; N20.0 Calculus of kidney; E11.22 Type 2 diabetes mellitus with diabetic chronic kidney disease; N18.30 Chronic kidney disease, stage 3 unspecified; E87.5 Hyperkalemia; Z20.822 Contact with and (suspected) exposure to COVID-19; Z79.4 Long term (current) use of insulin; Z79.82 Long term (current) use of aspirin; Z79.85 Long-term (current) use of injectable non-insulin antidiabetic drugs; Z79.899 Other long term (current) drug therapy
CPT/HCPCS: 36415; 71045; 74176; 80053; 81001; 81003; 82803; 82947; 83036; 83735; 83880; 84484; 85025; 85610; 87040; 87633; 87640; 87641; 93005; 94640; 97162; 99285; J1610; J1644; J1938; J2470; J3374

== ENCOUNTER → 2025-02-13 08:50 | Outpatient (BNV) | payer OTHER, SELFPAY | PROVIDERS: Emergency Provider Emergency Medicine; Visit Provider Specialist | DX: N20.0 Calculus of kidney (principal); R06.02 Shortness of breath | CPT/HCPCS: 71045; 74176 ==

== ENCOUNTER → 2025-02-13 10:10 | Outpatient (BNV) | payer OTHER, SELFPAY | PROVIDERS: Emergency Provider Emergency Medicine; Visit Provider Internal Medicine Cardiovascular Disease | DX: I44.7 Left bundle-branch block, unspecified (principal) | CPT/HCPCS: 93010 ==

== ENCOUNTER → 2025-02-13 16:00 | Outpatient (BNV) | payer OTHER, SELFPAY | PROVIDERS: Admitting Provider Student in an Organized Health Care Education/Training Program; Emergency Provider Emergency Medicine; Visit Provider Student in an Organized Health Care Education/Training Program | DX: N17.9 Acute kidney failure, unspecified (principal); N18.30 Chronic kidney disease, stage 3 unspecified | CPT/HCPCS: 99223; 99232; 99233; 99239; G0180 ==

== ENCOUNTER → 2025-02-13 16:00 | Outpatient (BNV) | payer OTHER, SELFPAY | PROVIDERS: Admitting Provider Student in an Organized Health Care Education/Training Program; Emergency Provider Emergency Medicine; Visit Provider Internal Medicine | DX: I50.43 Acute on chronic combined systolic (congestive) and diastolic (congestive) heart failure (principal); I44.7 Left bundle-branch block, unspecified; N17.9 Acute kidney failure, unspecified | CPT/HCPCS: 99223 ==

== ENCOUNTER 2025-02-23 13:30 | Outpatient (AMB) | payer OTHER, SELFPAY ==
--- NOTE | 2025-02-23 13:37 | A.OFFVIS_ITS ---
Vital Signs 02/23/25 13:38 Height 5 ft 3 in Weight 149 lb 14.629 oz BMI 26.6 BP 120/80 Blood Pressure Location Lt brachial Position Sitting Pulse 72 Intake Visit Reasons: [facility] [place] f/u Intake Note: [facility] [place] Follow-up feeling ok now Construction Electrician Required: Yes Construction Electrician Services: Construction Electrician Offered & Declined Vending Route Driver: Vending Route Driver Present Accompanied by: Grand Child Allergies Iodinated Contrast Media (IV CONTRAST) Allergy (Unknown, Verified 02/13/25 08:50) UNKNOWN Medication List - Last Reconciled 02/23/25 by YADIRA Palm [Adult pull ups As directed] aspirin (Adult Aspirin Regimen) 81 mg PO DAILY atorvastatin 20 mg PO BEDTIME [Bed bar As directed] blood pressure monitor (Blood Pressure Kit) As directed blood sugar diagnostic (PayLease Ultra Test strips) test 3 times per day blood-glucose meter (PayLease Ultra2 Meter) test 3 times daily [body wipes As directed] carvedilol 6.25 mg PO BID commode (bedside commode) As directed diaper,brief,adult,disposable As directed size mediun [Disposable bed pads As directed] [Disposable tiesha-pads As directed] dulaglutide (Trulicity) 0.75 mg subcut MO empagliflozin (Jardiance) 10 mg PO DAILY epinephrine (EpiPen 2-Mariano) 0.3 mg (0.3 mL) IM Q10M PRN gabapentin 100 mg PO BID insulin glargine U-300 conc (Toujeo SoloStar U-300 Insulin) 20 units subcut DAILY PRN lancets (ReksoftTouch UltraSoft 2 Lancet) test 3 times per day lidocaine 4% 1 patch topical DAILY PRN meclizine (Motion Sickness Relief (meclizine)) 25 mg PO DAILY PRN mirabegron ER (Myrbetriq) 50 mg PO DAILY omeprazole 20 mg PO DAILY@0630 [Raised toilet seat with arms As directed] sacubitril-valsartan 24-26 mg (Entresto) 1 tab PO BID tramadol 50 mg PO BID PRN HPI HPI [facility] ed f/u: Details: Brit is an 89-year-old female past medical history of hypertension, hyperlipidemia, diabetes, chronic kidney disease, left bundle branch block, NSTEMI April 2023 followed by abnormal nuclear stress test and patient declined cardiac catheterization, who was recently admitted to [facility] with shortness of breath and treated for acute on chronic heart failure. During her admission she had a run of NSVT and was put on amiodarone. She was diuresed and sent home with Lasix 40 mg daily, spironolactone 25 mg daily, Entresto, Jardiance, amiodarone. She was readmitted weeks later with ANG and thought to be dehydrated. Her diuretics were stopped. She never took amiodarone as outpatient and it was not restarted following this 2nd discharge. She now presents here for follow-up. Today she presents with her daughter who does most of the talking. She states mother has been doing generally well since her hospital discharge. She does have some fatigue and has been mostly sedentary. She ambulates short distances in the home using her walker. Cardiac catheterization had been discussed with them during the December admission and they are both in agreement to proceed. Patient denies having any chest discomfort at rest or with activity. She denies any concerning shortness of breath, no PND, orthopnea or edema. She has not restarted on the diuretics. No heart palpitations, lightheadedness, presyncope, syncope. Compliant with all meds. [facility] Medical History Congestive heart failure Heart failure with reduced ejection fraction Anemia Prolapsed hemorrhoids Diabetic nephropathy with proteinuria Hyperlipidemia HTN (hypertension) IBS (irritable bowel syndrome) Prolapsed internal hemorrhoids Chronic kidney disease, stage III (moderate) Obesity (BMI 30-39.9) Mixed hyperlipidemia Hypertensive heart disease Left bundle branch block Bladder prolapse Diabetes mellitus GERD (gastroesophageal reflux disease) Surgical History History of bladder repair surgery History of ERCP History of bilateral cataract extraction History of cholecystectomy History of excision of mass History of colonoscopy History of ankle surgery Family History Father No problems noted. Mother No problems noted. Family/Other Lung cancer Esophagus cancer Other Mental health disorder Substance use disorder Social History Household Members: Family Household Members Other:: son/grandson Housing: Apartment Do you presently have visiting nurse or other home services: Yes (granddaughter JEWELRY BENCH WORKER) Alcohol intake: never Patient Tobacco Use Status: Former Tobacco user e-Cigarette/Vaping Use: Never Used Second Hand Smoke Exposure: No Advance Directives Date on File: 11/11/24 service: No Current occupational status: disabled Cognitive needs: Yes (cane/walker) Hearing needs: No Vision needs: Yes (glasses) Review of Systems Const All systems reviewed & are unremarkable except as noted in HPI and below Denies chills, Reports fatigue, Denies fever(s), Denies frequent falls, Denies weakness, Denies weight gain and Denies weight loss ENT Denies dizziness Card Denies chest pain, Denies leg edema, Denies lightheadedness, Denies palpitations, Reports dyspnea, Denies dyspnea on exertion, Denies orthopnea and Denies other (loss of consciousness) Resp Denies cough, Reports dyspnea and Denies dyspnea on exertion GI Denies hematochezia and Denies change in stool character Musc Reports abnormal gait (using walker), Denies muscle weakness, Denies numbness, Denies radiating pain into limb and Denies tingling Neuro Reports abnormal gait (using walker), Denies dizziness, Denies frequent falls, Denies numbness, Denies tingling and Denies weakness Endo Reports fatigue and Denies palpitations Physical Exam Vital Signs: Last Vital Signs Pulse 72 02/23/25 13:38 BP 120/80 02/23/25 13:38 BMI result Body Mass Index 26.6 Const Other: Frail elderly female, ambulates slow with walker General: cooperative, comfortable and no acute distress Orientation/consciousness: patient oriented x3 Neck Neck: Yes normal visual inspection and Yes no JVD Resp Effort & Inspection: normal respiratory effort Auscultation: clear to auscultation bilaterally, rales (fine rales 1/3 up bilaterally), no rhonchi and no wheezes Cardio Jugular venous distension: no JVD Rate: regular rate Rhythm: regular rhythm Heart sounds: S1 normal heart sound present, S2 normal heart sound present, no murmurs and no rubs Neuro General: patient oriented x3 Extrem Other: +1 pitting ankle and lower leg edema General: Yes normal to inspection, No no pedal edema and No calf tenderness Psych Appearance: grossly normal Mental Status: mental status grossly normal Speech and movement: Normal speech and movement present Assessment & Plan Assessment & Plan (1) Acute on chronic combined systolic and diastolic CHF (congestive heart failure): Code(s): I50.43 - Acute on chronic combined systolic (congestive) and diastolic (congestive) heart failure Category: Medical Plan: Recent [facility] admission for acute on chronic systolic and diastolic heart failure. Her last echocardiogram 11/23/2024 showed EF 25-30%, moderate LVH, grade 1 diastolic dysfunction. She was put on appropriate medication including Lasix, spironolactone, Jardiance and Entresto. Readmission for ANG and diuretics were stopped. She currently remains off diuretics and is not fluid overloaded on exam. Daughter has Lasix 20 mg tablet on hand. Reviewed signs and symptoms of heart failure with her. Will have her give Lasix 20 mg daily x3 days if she has any shortness of breath, weight gain over 3 lb or leg edema. Will check labs when they are able including BMP, NT pro BNP. She will likely need diuretics going forward. Continue Jardiance, Entresto, carvedilol. (2) Cardiomyopathy: Code(s): I42.9 - Cardiomyopathy, unspecified Category: Medical Plan: Newer finding of cardiomyopathy on Echocardiogram done on 04/09/2023 showed EF 35- 40%, impaired relaxation, mild aortic stenosis. Prior echo done 11/24/2019 had shown EF 55-60%, mild aortic stenosis. She does have a history of chronic left bundle branch block which can contribute to her cardiomyopathy. She has multiple cardiac risk factors including age, hypertension, hyperlipidemia, diabetes, obesity and chronic kidney disease. A pharmacological nuclear stress test was done on 06/12/2023 showing ischemia in the inferior lateral as well as inferior apical wall with fixed defect in the basal to mid inferior wall question severe ischemia versus nontransmural infarct. She had declined cardiac catheterization however now with recent hospitalization for decompensated heart failure, NSVT and ongoing reduced EF, currently 25-30% she is agreeable to undergo cardiac catheterization. Will order cardiac catheterization question PCI and preprocedure labs. Procedure was reviewed with her in detail. Will confirm plan with vice president & general manager brand [place]. (3) Left bundle branch block: Comment: Known left bundle-branch block. Prior workup had shown no evidence of myocardial ischemia. Code(s): I44.7 - Left bundle-branch block, unspecified Category: Medical Plan: History of left bundle branch block. May be contributing to her cardiomyopathy (4) Hypertensive heart disease: Comment: Moderate LVH by echocardiogram, September 2019 consistent with hypertensive heart disease. No evidence of heart failure. Code(s): I11.9 - Hypertensive heart disease without heart failure Category: Medical Plan: Most recent echo showing moderate LVH, EF 25-30 %. Continue with good blood pressure control. (5) HTN (hypertension): Code(s): I10 - Essential (primary) hypertension Category: Medical Plan: Blood pressure goal less than 140/90-with her advanced age. Well controlled at present. No med changes made. (6) Abnormal nuclear stress test: Code(s): R94.39 - Abnormal result of other cardiovascular function study Category: Medical Plan: As above. (7) Hospital discharge follow-up: Code(s): Z09 - Encounter for follow-up examination after completed treatment for conditions other than malignant neoplasm Category: Medical Plan: [facility] discharge summaries and cardiology notes reviewed. Plan Time spent on chart review, documentation, interview and assessment Orders: Orders Basic Metabolic Panel Today I42.9 - Cardiomyopathy, unspecified, I50.43 - Acute on chronic combined systolic (congestive) and diastolic (congestive) heart failure, R94.39 - Abnormal result of other cardiovascular function study Cardiac Cath LT w PCI Today I42.9 - Cardiomyopathy, unspecified, I50.43 - Acute on chronic combined systolic (congestive) and diastolic (congestive) heart failure, R94.39 - Abnormal result of other cardiovascular function study Complete Blood Count Auto Diff Today I42.9 - Cardiomyopathy, unspecified, I50.43 - Acute on chronic combined systolic (congestive) and diastolic (congestive) heart failure, R94.39 - Abnormal result of other cardiovascular function study Prothrombin Time INR Today I42.9 - Cardiomyopathy, unspecified, I50.43 - Acute on chronic combined systolic (congestive) and diastolic (congestive) heart failure, R94.39 - Abnormal result of other cardiovascular function study NT Pro B Type Natriuretic Pept Today I42.9 - Cardiomyopathy, unspecified, I50.43 - Acute on chronic combined systolic (congestive) and diastolic (congestive) heart failure, R94.39 - Abnormal result of other cardiovascular function study Coding Level of Care Code Est Pt Level 4 (25113) Complex visit Add On G2211 Diagnoses Acute on chronic combined systolic and diastolic CHF (congestive heart failure) I50.43 Cardiomyopathy I42.9 Left bundle branch block I44.7 Hypertensive heart disease I11.9 HTN (hypertension) I10 Abnormal nuclear stress test R94.39 Hospital discharge follow-up Z09 Time Spent (min) 32
[2025-02-23 13:38] VITALS: BP 120/80; PULSE 72; BMI 26.6
--- OUTSIDE RECORDS SUMMARY | 2025-02-23 17:24 | XMS_ITS | Continuity of Care Document ---
Author Organization [employer] [facility], In [employer] [facility] Address [address] [place] [address] Care Team Providers Care Real Estate Sales Agent Name Role Phone HIM CCA OTHER JOEY NOVAKK Primary Care Provider Assessment Encounter Date Assessment Date Assessment LastModified by Organization Details LastModified Time 02/23/2025 02/23/2025 I provided real -time medical direction via phone for this encounter and was available for additional phone-based assistance as needed. I have reviewed and agree with the Assessment and Plan as documented by the Armament Installer. Patient given the opportunity to ask questions. Our service contacted for an assessment of: Urinary symptoms As per above, patient with approximately 24 hours of dysuria. Symptoms seem to be more related to vaginal complaints with pain with urine passes through and some mild itching. No history of frequent urinary tract infections. Denies fever, chills, abdominal pain, back pain, flank pain. Per survey compiler on the scene, Vital signs are stable and the patient is afebrile. Patient is nontoxic in appearance. UA is negative for leukocytes. Impression: Urinary symptoms like related to vaginal dryness and atrophy given age Plan: Observation for now. Patient has a PCP appointment on 03/03 and asked her to f/u for addition of vaginal estrogen cream for atopic vaginitis Allergies: reviewed We discussed the diagnostic uncertainty of home visits and the risk associated with this. In this case, the patient and I felt this to be an acceptable and reasonable amount of risk given the benefit of avoiding an ED visit. We discussed the need to seek care urgently/emergen tly in the setting of any new or worsening serious symptoms, particularly fever chills [email or web address] Not available 02/23/2025 10:20:59 Plan of Treatment Reminders Order Date Submit Date Provider Last Modified By Organization Details Last Modified Time Details Appointments Urgent Care 2024 09:07A Errol Adkins MD Not available Not available Not available Lab urinalysi s, dipstick 2024 025 [facility], [address] [place] [address], [phone] 02/23/2025 10:36:20 Referral None recorded. Procedures None recorded. Surgeries None recorded. Imaging None recorded. Medication Orders None recorded. Patient TargetsNo targets recorded. Patient InstructionsNo instructions recorded. Reason for Referral None Reported. Results Created Date Observation Date Name Description Value Unit Range Abnormal Flag Note LastModifiedBy Organization Detail LastModifiedTime Result Notes None recorded. Medical Equipment None Reported. Allergies Allergen ID Allergen Name Allergen Category Reaction Reaction Severity Criticality Documentation Date Start Date Code Code System Note Provider Name and Address Organization Details Recorded Time 47037 Product containin g penicilli n (product) medicatio n Not available Not available Not available 02/10/2024 76328 8001 SNOMED Not Available [facility] - production 4 11:29:56 Iodinated contrast media (substanc e) medicatio n Not available Not available Not available 02/22/2025 64411 2004 SNOMED Not Available [facility] - production 5 10:14:49 Medications Name Sig Start Date Stop Date [...] Not Available Not Available Comfort EZ Pen [place] 33 gauge x 5/32 active Not Available Not Available Not Available Trulicity 0.75 mg/0.5 mL subcutaneous pen injector active Not Available Not Available Not Available Tousadiqo SoloStar U-300 Insulin 300 unit/mL (1.5 mL) subcutaneous pen active Not Available Not Available Not Available OneTouch Ultra2 Meter active Not Available Not Available Not Available Comfort Touch Plus Pressure Activated Safety Lancets 30 gauge active Not Available Not Available Not Available Vitals Date Recorded Body temperature Body weight Respiratory rate Oxygen saturation Heart rate Body height Systolic And Diastolic Provider Name and Address Organization Details Last Updated DateTime 5 97.6 [degF] 47496.6 16 g 18 /min 100 % 72 /min 160.02 cm 129/72 mm[Hg] Not Available [employer] - production 5 09:11:50 Social History None recorded. Functional Status None recorded. Mental Status None recorded. Family History Nothing Reported. Medical History No medical history recorded. Gynecological HistoryNo gynecological history recorded. Obstetrics History GPAL:G 0 P 0 0 0 0 Past Encounters Encounter ID Performer Location Encounter Start Date Encounter Closed Date Diagnosis/Indication Diagnosis SNOMED-CT Code Diagnosis ICD10 Code Diagnosis IMO Codes Diagnosis Note [id number] Sweta Adkins MD [facility] [address] [place] [address] 02/23/2025 09:07:31 02/23/2025 11:55:35 Urinary system finding [id number] R39.9 [id number] Health Concerns Section Related Observation LastModified by Organization Detai ls LastModified Time None Recorded Concern Status LastModified by Organization Details LastModified Time None Recorded Payers Encounter Date Sequence Insurance Name Policy Number Policy Zamora Covered Member ID Zamora Member ID Guarantor Name 02/23/2025 1 [facility] - DOS ON OR AFTER 2022 - DUAL ELIGIBLE - DETENTION OPTIONS AND ONE CARE (MEDICARE REPLACEMENT/ADV ANTAGE - HMO) Brit Goins [id number] Brit Goins Notes Date Note Type Note Provider Name and Address Organization Details Recorded Time 02/23/2025 text/html CRC Nurse Triage Notes (Alicia Marcelo): Reason For Request: Possible UTI. Patient Reports: Frequent and increased urination with flank pain Denies: Unable to void greater than 5 hours Erection that will not go away after 2 hours Fall or trauma that results in urinary incontinence in the setting of pain Fall or injury that results in incontinence in the absence of pain Lower back pain either unilateral or bilateral, unable to void, painful urination -hematuria Painful urination Painful urination with or without fever Inability to fully empty bladder Chief Complaints: Urinary Symptoms PMH: Coronary Artery Disease, Congestive Heart Failure, Diabetes Mellitus Type 2, Hypertension PMH Reviewed at 02/22/2025 - 10:14 (ET) Allergies Reviewed at 02/22/2025 - 10:14 (ET) Comments: 89 y.o female complains of Urinary Symptoms Patients daughter making referral [place] [facility] [place] to high potassium. They stopped her lasix and spironolactone. patient for the last few days had endorses feeling hot , frequency, urgency, and strong odor with urine. Wiped herself and saw a little bit of blood. denies any nausea/vomiting or loose stools denies any confusion/headaches/ abdominal pain/ flank pain denies any chronic kidney disease denies any blood thinner use. requesting insted assessment for urinary symptoms I provided information on the mobile health provider response time and advised the patient and/or caregiver to monitor reported signs and symptoms. I discussed the warning signs of when to seek emergency care. Armament Installer Organization Information for Mario Collado Business Legal Name: [facility] Address: [address] [place] [address], [place] [address], Devulcanizer Operator: Usman TYLER No.: [id number] Armament Installer POC Test Results from Mario Collado Urine Dipstick (09:11:58) Urine leukocytes: -GIGI Urine nitrites: -NIT Urine urobilinogen: 0.2URO Urine protein: -PRO Urine pH: 5.0pH Urine blood: -BLO Urine specific gravity: 1.02SG Urine ketones: -KET Urine bilirubin: -MILES Urine glucose: 2+GLU .................... .................... .................... .................... .................... .................... .................... . Armament Installer Note From Mario Collado: Patient Chief complained today of UTI /vaginitis symptoms. Patient expresses that all signs and symptoms have been occurring for approximately 4 days prior to [facility] arrival on scene today. Patient expresses she has been feeling general weakness as well as increased level of frequency/ urgency as well as an external itch. patient today would appreciate a general assessment as well as potential treatment as possible. Patient currently expresses no signs and symptoms of chest pain, shortness of breath, nvd, dizziness and or changes in vision. Non-Melvin focal exam, a febrile, all vitals fully within normal limits of the patient's baseline. Patient is able to ambulate with minimal assistance of a person at her baseline. Patient lungs present as clear bilaterally. Benign abdominal exam. No new and or worsening lower extremity edema. POC urinalysis shows negative leukocytes as well as nitrites. Patient is LAMBERT* 4 with a GCS score of 15. [facility] Sweta Adkins consulted. Patient is informed of findings. Patient told to keep her March 03 appointment with her primary Care and she may possibly need a topical estrogen cream to assist with signs and symptoms. Patient is educated on red flag signs and symptoms and told to call emergency services if any begin to present. [facility] Lab Orders: urinalysis, dipstick: Performed culture, urine: Performed .................... .................... .................... .................... .................... .................... .................... . [facility] Consulted: Sweta Adkins .................... .................... .................... .................... .................... .................... .................... . Disposition: Fulfilled Sweta Adkins MD [address] [place] [address],[address], [place], [phone], VANDOLAY 02/23/2025 10:21:09 OBGyn Episode No OBEpisode recorded.
--- OUTSIDE RECORDS SUMMARY | 2025-02-23 17:24 | XMS_ITS | Data Portability ---
Author Organization [facility], [facility] Address [address] [place] [address] Care Team Providers Care Radio Repairer Domestic Name Role Phone HIM CCA OTHER SANTIAGO NOVAK Primary Care Provider Assessment Encounter Date Assessment Date Assessment LastModified by Organization Details LastModified Time 02/10/2024 02/10/2024 I have reviewed and agree with the assessment and plan as documented by the wool hat sanding machine operator. I provided real time medical direction for this encounter and was immediately available to provide additional phone based assistance as needed. History as noted by wool hat sanding machine operator. Pt with history of UTI (most recent [...] of any new or worsening serious symptoms [email or web address] Not available 02/26/2024 12:15:53 05/12/2024 05/12/2024 I have reviewed and agree with the assessment and plan as documented by the wool hat sanding machine operator. I provided real-time medical direction for this encounter and was immediately available to provide additional phone-based assistance as needed. History as noted in EMR and by wool hat sanding machine operator. I would add / emphasize: Pt seen [...] Assessment and Plan as documented by the Abrasive Coating Machine Operator. Patient given the opportunity to ask questions. As per above, patient VSS Per wool hat sanding machine operator on the scene, Please read the wool hat sanding machine operator note for their exam findings. Impression: worsening dizziness, fatigue in the setting of a known anemia, UGIB and still taking NSAIDs Plan: expect call to [facility] via personal car Allergies: Reviewed [place] [id number] Not available 12/15/2024 18:36:32 Plan of Treatment Reminders Order Date Submit Date Provider Last Modified By Organization Details Last Modified Time Details Appointments None recorded. Lab culture, urine 2024 025 CLMEENTINE [facility] (Centralized Electronic Ordering - All Locations), Patient Can Go To The Location Of Their Choice, [facility] [place] 5 10:05:55 urinalysi s, dipstick [address] [facility], [address] [place] [address], [id number] 5 18:11:50 glucose, fingersti ck, blood [email or web address] [facility], [address] [place] [address], [id number] 4 11:13:25 urinalysi s, dipstick [email or web address] [facility], [address] [place] [address], [id number] 4 13:26:15 culture, urine 2023 024 CLEMENTINE [facility] (Centralized Electronic Ordering - All Locations), Patient Can Go To The Location Of Their Choice, [id number] 4 12:06:17 urinalysi s, dipstick [address], [id number] 4 16:02:48 BMP, serum or plasma [address], [id number] 4 16:04:07 Referral None recorded. Procedures None recorded. Surgeries None recorded. Imaging None recorded. Medication Orders sulfameth oxazole 800 mg-trimet hoprim 160 mg tablet 2024 025 [facility]/Pharmacy #[id number], [address] [place] [address], [address], 5 11:12:57 sulfameth oxazole 800 mg-trimet hoprim 160 mg tablet 2024 025 [email or web address] [facility]/Pharmacy #[id number], [address] [place], [address], 5 11:12:55 Bactrim DS 800 mg-160 mg tablet 2023 024 [facility]/Pharmacy #[id number], [address] [place], [address], 4 11:11:33 Bactrim DS 800 mg-160 mg tablet 2023 024 [email or web address] [facility]/Pharmacy #[id number], [address] [place] [address], [address], 4 11:11:31 Patient TargetsNo targets recorded. Patient InstructionsNo instructions recorded. Reason for Referral None Reported. Results Created Date Observation Date Name Description Value Unit Range Abnormal Flag Note LastModifiedBy Organization Detail LastModifiedTime 11/17/19 24 11/20/2023 URINE CULTU RE,CO MPREH ENSIV E urine culture,comp rehensive Final report abnormal Not Available [facility] ([facility]) [address] [facility], [place], [address], 11/20/2023 14:06:38 11/17/19 24 11/20/2023 URINE CULTU [...] Prote us mirab ilis. Not Available [facility] ([facility]) [address] [facility], [place], [address], 11/20/2023 14:06:38 11/17/19 24 11/20/2023 URINE CULTU [...] thopr im/Petit lfa S Not Available [facility] ([facility]) [address] [facility], [place], [address], 11/20/2023 14:06:38 05/12/19 25 05/15/2024 URINE CULTU RE,CO MPREH ENSIV E urine culture,comp rehensive Final report abnormal Not Available [facility] ([facility]) [address] [facility], [place], [address], 05/15/2024 12:05:51 05/12/19 25 05/15/2024 URINE CULTU RE,CO MPREH ENSIV E result 1 Candid a albica ns abnormal 2,000 Colon ies/m L Not Available [facility] ([facility]) [address] [facility], [place], [address], 05/15/2024 12:05:51 Result Notes None recorded. Medical Equipment None Reported. Allergies Allergen ID Allergen Name Allergen Category Reaction Reaction Severity Criticality Documentation Date Start Date Code Code System Note Provider Name and Address Organization Details Recorded Time Product containin g penicilli n (product) medicatio n Not available Not available Not available 02/10/2024 52141 8001 SNOMED Not Available [facility] - production 4 11:29:56 Iodinated contrast media (substanc e) medicatio n Not available Not available Not available 02/22/2025 62027 2004 SNOMED Not Available [facility] - production [...] Not Available Not Available Comfort EZ Pen [place] 33 gauge x 5/32 active Not Available [...] Not Available Vitals Date Recorded Oxygen saturation Respiratory rate Heart rate Body temperature Systolic And Diastolic Provider Name and Address Organization Details Last Updated DateTime 5 99 % 18 /min 86 /min 98.2 [degF] 138/82 mm[Hg] Not Available [facility] - production 5 11:09:02 Date Recorded Respiratory rate Body temperature Heart rate Oxygen saturation Systolic And Diastolic Provider Name and Address Organization Details Last Updated DateTime 4 16 /min 97.5 [degF] 85 /min 98 % 165/75 mm[Hg] Not Available [facility] - production 4 10:50:25 Date Recorded Respiratory rate Heart rate Oxygen saturation Body temperature Systolic And Diastolic Provider Name and Address Organization Details Last Updated DateTime 5 16 /min 64 /min 97 % 97.5 [degF] 142/68 mm[Hg] Not Available [employer] - production 5 15:20:23 Date Recorded Body temperature Respiratory rate Oxygen saturation Heart rate Systolic And Diastolic Provider Name and Address Organization Details Last Updated DateTime 4 98.1 [degF] 16 /min 98 % 89 /min 160/88 mm[Hg] Not Available [employer] 4 13:17:17 Date Recorded Body height Body weight Heart rate Oxygen saturation Body temperature Heart rate Respiratory rate Systolic And Diastolic Systolic And Diastolic Provider Name and Address Organization Details Last Updated DateTime 4 160.02 cm 75317.7 6 g 86 /min 98 % 98.5 [degF] 92 /min 16 /min 143/73 mm[Hg] 156/78 mm[Hg] Not Available [employer] 4 11:04:25 Social History None recorded. Functional Status None recorded. Mental Status None recorded. Family History Nothing Reported. Medical History No medical history recorded. Gynecological HistoryNo gynecological history recorded. Obstetrics History GPAL:G 0 P 0 0 0 0 Past Encounters Encounter ID Performer Location Encounter Start Date Encounter Closed Date Diagnosis/Indication Diagnosis SNOMED-CT Code Diagnosis ICD10 Code Diagnosis IMO Codes Diagnosis Note [id number] Marco Carr MD Main - [address] [address] 11/17/2023 10:50:22 11/17/2023 17:16:47 Urinary symptoms 841945638 R39.9 UTI symptoms with positive U/A. 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 Obtained BMP with normal Chemical Handler today. Given flank pain and symptoms, will treat with Bactrim (now allergies) . Placed culture order for [facility]. Discussed red flag signs for which to seek higher level of care. [id number] Simba Sifuentes MD Main - [address] [address] 02/10/2024 13:17:14 02/10/2024 20:57:37 Increased frequency of urination [id number] R35.0 [id number] Russell Serra MD [facility] - [address] [address] 02/26/2024 11:04:22 02/26/2024 13:00:19 Dizziness [id number] R42 [id number] Scott Lawson MD Main - [facility] [address] [place] [phone] 05/12/2024 11:08:53 05/13/2024 17:32:30 Urinary symptoms [id number] R39.9 [id number] Sweta Adkins MD Main-[facility] [address] [place] [phone] 12/15/2024 15:20:20 12/15/2024 18:47:36 Dizziness [id number] R42 29726 Anemia 260573873 D64.9 [id number] Health Concerns Section Related Observation LastModified by Organization Detai ls LastModified Time None Recorded Concern Status LastModified by Organization Details LastModified Time None Recorded Advance Directives Directive None Recorded Payers Insurance Date Sequence Insurance Name Policy Number Policy Zamora Covered Member ID Zamora Member ID Guarantor Name 02/22/2025 1 [facility] - DOS ON OR AFTER 2022 - DUAL ELIGIBLE - DETENTION OPTIONS AND ONE CARE (MEDICARE REPLACEMENT/ADV ANTAGE - HMO) Brit Goins [id number] Brit Goins Notes Date Note Type Note Provider Name and Address Organization Details Recorded Time 11/17/2023 text/html ROS as noted in the HPI HPI: Member Citizen Of [place] speaking. Daughter calls in with concern for [...] any additional information to process this visit. Abrasive Coating Machine Operator Organization Information for Jett Ojeda mygola Legal Name: [facility] Address: [address] [place] [address], [place] [address], Muck Hauler: Umsan Moore MD CLIA No.: [id number] Abrasive Coating Machine Operator POC Test Results from Jett Ojeda Urine [...] .................... .................... .................... .................... .................... .................... . Abrasive Coating Machine Operator Note From Jett Ojeda: Pt reports several [...] to f/u with PCP. Red flags reviewed. [facility] Lab Orders: culture, urine: Performed [facility] Medication Orders: Bactrim DS 800 mg-160 mg tablet: Administered .................... .................... .................... .................... .................... .................... .................... . Disposition: Fulfilled Marco Carr MD [address] [place] [address],[address], [place], [phone] Alo7 11/17/2023 11:43:32 02/10/2024 text/html ROS as noted in the HPI This was a supervised home visit with wool hat sanding machine operator Adam Cifuentes. [facility] Nurse Triage Notes (Mert Posadas): Reason For Request: Patient cant sleep, feels weak, and has urination problems. Chief Complaints: Urinary symptoms PMH: Coronary Artery Disease, Congestive Heart Failure Comments: Media Consultant verified the Pt.'s name//address and phone number. Education provided on the response time and the Pt. was advised to monitor reported s/s and seek emergency treatment if needed. CG reports the pt is feeling unwell with increased weakness and UTI symptoms - Increased frequency/urgency - Denies fever - S/S x 2 days. Wellness visit requested. Abrasive Coating Machine Operator Organization Information for Adam Cifuentes Legal Name: [employer]. Address: [address] [place] [address], Muck Hauler: Juan TYLER No.: [id number] Abrasive Coating Machine Operator POC Test Results from Adam Cifuentes - CODIE Urine Dipstick (12:56:37) Urine leukocytes: - GIGI Urine nitrites: - NIT Urine urobilinogen: - URO Urine protein: - PRO Urine pH: 6.0 pH Urine blood: - BLO Urine specific gravity: 1.005 SG Urine ketones: - KET Urine bilirubin: - MILES Urine glucose: - GLU .................... .................... .................... .................... .................... .................... .................... . Abrasive Coating Machine Operator Note From Adam Cifuentes: Dispatched to the [...] .................... .................... .................... .................... .................... .................... . [facility] Consulted: Simba Sifuentes .................... .................... .................... .................... .................... .................... .................... . Disposition: Fulfilled Simba Sifuentes MD [address] [place] [address],[address] [facility], [place], [address] Alo7 02/10/2024 16:54:30 02/26/2024 text/html ROS as noted [...] s/s and seek emergency treatment if needed. Abrasive Coating Machine Operator Organization Information for Rodney Angeles Business Legal Name: [employer]. Address: [address] [place] [address], Muck Hauler: Juan Bateman MD [facility] No.: [id number] Abrasive Coating Machine Operator POC Test Results from Rodney Angeles - [facility] Blood Glucose Measurement (11:01:07) Blood Glucose: 140 mg/dL .................... .................... .................... .................... .................... .................... .................... . Abrasive Coating Machine Operator Note From Rodney Angeles: [facility] Pt's granddaughter called [...] provide urine specimen during visit. Consulted with [facility] Dr. Serra who advised pt continue to monitor symptoms. Reviewed red flags for ED. Pt education provided. .................... .................... .................... .................... .................... .................... .................... . [facility] Consulted: Russell Serra .................... .................... .................... .................... .................... .................... .................... . Disposition: Fulfilled Russell Serra MD [address] [place] [address],[address], [place], [address], Alo7 02/26/2024 12:16:06 05/12/2024 text/html [facility] Nurse Triage [...] at 05/12/2024:24 Allergies Reviewed at 05/12/2024:24 Comments: Media Consultant verified the name//address and phone number. PT [...] s/s and seek emergency treatment if needed Abrasive Coating Machine Operator Organization Information for Jose Steward Business Legal Name: [employer]. Address: [address] [place] [address], Muck Hauler: Juan TYLER No.: [id number] Abrasive Coating Machine Operator POC Test Results from Jose Steward Urine [...] .................... .................... .................... .................... .................... .................... . Abrasive Coating Machine Operator Note From Jose Steward: Responded to call for an 88 y/o female with concern for UTI. Pt has been complaining of burning and itchy sensation while urinating, with history of past UTI's. Pt looking for assessment and treatment if applicable. Upon arrival, pt found sitting on couch, Citizen [place] speaking only with pt granddaughter home to translate and relay information to provider. Pt stood up upon arrival of provider and was prepared to give urine sample prior to vital signs, Provider handing pt urine catch basin and sanitizing wipe requesting pt wipe prior to urination for clean catch. Provider learned from pt granddaughter that pt had gone to the [facility] a couple days ago for burning and itching with OB providing pt a cream to manage itchiness. Provider found pt CAOX4, dominican speaking only, airway open and patent, no distress noted. Pt ambulatory with no assist. Provider obtained pt PHM and obtained pt Pharmacy information prior to pt completing urination. Provider obtained urine sample for lab sendout and performed urine dip test, recording and sending to [facility]. Provider then obtained vital signs and assessed pt h-t, pt found HEENT normal, -sob, -cp. -td, -jvd -n/v/d, -dizzy. Equal and bilateral chest rise and fall noted, lung sounds clear in all bartholomew. Extremities normal, normal range of motion, no pain noted in head, abdomen, flanks or back. [facility] contacted and assessment discussed. Provider confirmed allergies and pharmacy location, [facility] ordering Jszrnvb451/160 mg single dose with more being sent to pharmacy to be administered twice a day until completion. Provider alerted pt and granddaughter of red flags, informed them to complete entire prescription. Provider answered any questions and then left the residence. All times approximate. [facility] Lab Orders: culture, urine: Performed urinalysis, dipstick: Performed [facility] Medication Orders: sulfamethoxazole 800 mg-trimethoprim 160 mg tablet: Administered .................... .................... .................... .................... .................... .................... .................... . [facility] Consulted: Scott Lawson ..Jorge................. .................... .................... .................... .................... .................... .................... . Disposition: Fulfilled Scott Lawson MD [address] [facility],[address], [place], [address], [employer] [place] 05/13/2024 14:20:08 12/15/2024 text/html [facility] Nurse Triage [...] .................... .................... .................... .................... .................... .................... . Abrasive Coating Machine Operator Note From Adam Cifuentes: Dispatched to the call address for the female with dizziness. Pt states she woke up feeling really dizzy. She does have a Hx of vertigo and took her Meclizine earlier but has not had any relief. She states this is a different type of dizziness from her normal vertigo. ELECTRICIAN YARD states Pt was in the hospital a [...] .................... .................... .................... .................... .................... .................... . [facility] Consulted: Sweta Adkins .................... .................... .................... .................... .................... .................... .................... . Disposition: Fulfilled Sweta Adkins MD [address] [place] [address],[address] [facility], [place], [address], KENDRA ABBOTT 12/15/2024 18:36:40 OBGyn Episode No OBEpisode recorded.
--- OUTSIDE RECORDS SUMMARY | 2025-02-23 17:24 | XMS_ITS | Continuity of Care Document ---
Author Organization [email or web address] [facility], [facility] Address [address] [place] [address] Care Team Providers Care Account Executive Healthcare Name Role Phone HIM CCA OTHER SCARLET SANTIAGO Primary Care Provider Assessment Encounter Date Assessment Date Assessment LastModified by Organization Details LastModified Time 12/15/2024 12/15/2024 I provided real -time medical direction via phone for this encounter and was available for additional phone-based assistance as needed. I have reviewed and agree with the Assessment and Plan as documented by the Research Assistant Member. Patient given the opportunity to ask questions. As per above, patient VSS Per behavioral health consultant on the scene, Please read the behavioral health consultant note for their exam findings. Impression: worsening dizziness, fatigue in the setting of a known anemia, UGIB and still taking NSAIDs Plan: expect call to [facility] via personal car Allergies: Reviewed efner Not available 12/15/2024 18:36:32 Plan of Treatment Reminders Order Date Submit Date Provider Last Modified By Organization Details Last Modified Time Details Appointments None record ed. Lab None record ed. Referral None record ed. Procedures None record ed. Surgeries None record ed. Imaging None record ed. Medication Orders None record ed. Patient TargetsNo targets recorded. Patient InstructionsNo instructions recorded. Reason for Referral None Reported. Medical Equipment None Reported. Allergies Allergen ID Allergen Name Allergen Category Reaction Reaction Severity Criticality Documentation Date Start Date Code Code System Note Provider Name and Address Organization Details Recorded Time 54600 Product containin g penicilli n (product) medicatio n Not available Not available Not available 02/10/2024 11635 8001 SNOMED Not Available [facility] - production 11:29:56 Iodinated contrast media (substanc e) medicatio n Not available Not available Not available 02/22/2025 83903 2003 SNOMED Not Available [facility] - production 5 [...] Not Available Not Available Comfort EZ Pen [place] 33 gauge x 5/32 active Not Available [...] Not Available Not Available Vitals Date Recorded Respiratory rate Heart rate Oxygen saturation Body temperature Systolic And Diastolic Provider Name and Address Organization Details Last Updated DateTime 5 16 /min 64 /min 97 % 97.5 [degF] 142/68 mm[Hg] Not Available [facility] - production 5 15:20:23 Social History None recorded. Functional Status None recorded. Mental Status None recorded. Family History Nothing Reported. Medical History No medical history recorded. Gynecological HistoryNo gynecological history recorded. Obstetrics History GPAL:G 0 P 0 0 0 0 Past Encounters Encounter ID Performer Location Encounter Start Date Encounter Closed Date Diagnosis/Indication Diagnosis SNOMED-CT Code Diagnosis ICD10 Code Diagnosis IMO Codes Diagnosis Note [id number] Sweta Adkins MD Main-[facility] [address] [address] 12/15/2024 15:20:20 12/15/2024 18:47:36 Dizziness [id number] R42 54392 Anemia 488049578 D64.9 [id number] Health Concerns Section Related Observation LastModified by Organization Detai ls LastModified Time None Recorded Concern Status LastModified by Organization Details LastModified Time None Recorded Payers Encounter Date Sequence Insurance Name Policy Number Policy Zamora Covered Member ID Zamora Member ID Guarantor Name 12/15/2024 1 [facility] - DOS ON OR AFTER 2022 - DUAL ELIGIBLE - NURSING HOME OPTIONS AND ONE CARE (MEDICARE REPLACEMENT/ADV ANTAGE - HMO) Brit Goins [id number] Brit Goins Notes Date Note Type Note Provider Name and Address Organization Details Recorded Time 12/15/2024 text/html [facility] Nurse Triage Notes (Alicia [...] Mellitus Type 2, Hypertension PMH Reviewed at 12/15/2024: Allergies Reviewed at 12/15/2024:24 Comments: 89 y.o [...] signs of when to seek emergency care. .................. .................. .................. .................. .................. .................. .................. ............... Research Assistant Member Note From Adam Cifuentes: Dispatched to the call address for the female with dizziness. Pt states she woke up feeling really dizzy. She does have a Hx of vertigo and took her Meclizine earlier but has not had any relief. She states this is a different type of dizziness from her normal vertigo. HOUSE CLEANER states Pt was in the hospital a [...] Red flags discussed. ALL times are approx. .................. .................. .................. .................. .................. .................. .................. ............... [facility] Consulted: Sweta Adkins .................. .................. .................. .................. .................. .................. .................. ............... Disposition: Shanel Adkins MD [address] [facility],[address], [place], [address], [place] [employer] 12/15/2024 18:36:40 OBGyn Episode No OBEpisode recorded.
--- OUTSIDE RECORDS SUMMARY | 2025-02-23 17:24 | XMS_ITS | Clinical Summary ---
Author Organization [employer] Address [address] [place] [address] Care Team Providers Care [employer] Refinery Laborer Name Role Phone Unavailable Primary Care Provider [...] patient's age to complete this topic Insurance [employer] (HMO D-SNP) [employer] [employer] [id number]
== END 2025-02-23 14:20 | disposition home or self-care (01) ==
LOC: HO.HCS 13:31
PROVIDERS: PCP Internal Medicine; Visit Provider Nurse Practitioner Family
DX: I50.43 Acute on chronic combined systolic (congestive) and diastolic (congestive) heart failure (principal); I42.9 Cardiomyopathy, unspecified; I44.7 Left bundle-branch block, unspecified; I11.9 Hypertensive heart disease without heart failure; I10 Essential (primary) hypertension; R94.39 Abnormal result of other cardiovascular function study; Z09 Encounter for follow-up examination after completed treatment for conditions other than malignant neoplasm
CPT/HCPCS: 99214; G2211

== ENCOUNTER → 2025-02-23 13:30 | Outpatient (BNVA) | payer OTHER, SELFPAY | PROVIDERS: PCP Internal Medicine; Visit Provider Nurse Practitioner Family | DX: I11.0 Hypertensive heart disease with heart failure (principal); I50.43 Acute on chronic combined systolic (congestive) and diastolic (congestive) heart failure; I42.9 Cardiomyopathy, unspecified; I44.7 Left bundle-branch block, unspecified; R94.39 Abnormal result of other cardiovascular function study | CPT/HCPCS: 99212 ==

== ENCOUNTER 2025-03-12 10:53 | Outpatient (AMB) | payer OTHER, SELFPAY ==
--- NOTE | 2025-03-12 10:56 | A.OFFPC_ITS ---
Vital Signs 03/12/25 10:57 Height 5 ft 3 in Weight 151 lb 10.848 oz BMI 26.9 BP 112/72 Blood Pressure Location Lt brachial Position Sitting Pulse 74 Pulse Source Pulse Oximeter Pulse Oximetry (%) 95 Oxygen Delivery Method Room Air Intake Visit Reasons: Discharge f/u [facility] [place] 02/26 Intake Note: Persistent cough Allergies Iodinated Contrast Media (IV CONTRAST) Allergy (Unknown, Verified 03/12/25 10:57) UNKNOWN Tobacco use date assessed: 01/28/25 Fall risk assessment: No Falls in past year Last assessed Fall Risk: 03/12/25 Dental Screening Dental Screen Date: 01/28/25 HPI HPI Comments History of Present Illness Details 89 y/o female presents today for HDF. PM Hx significant for HFrEF (EF 25%), pneumonia, hyperlipidemia, IBS-D, CKD stage 3b, GERD, chronic LBBB, diabetes mellitus, recent diverticulitis, and anemia. She was admitted at [facility] [place] from 02/15?02/16 for evaluation and treatment of Hyperkalemia and ANG. Patient reports that she had recently started home diuretics and had not yet completed follow-up labs prior to admission. Pt has hx of HFrEF since at least 04/09/2023 though only recently started on home diuretics: Was seen by Cardiology on 12/24/24 and started on Lasix 20 mg p.o. p.r.n. However, Pt experienced CHF exacerbation less than 2 weeks later and was discharged from the hospital on 01/10/2025 on Lasix 40 mg daily and Spironolactone 25 mg daily. Pt had not yet had repeat labs drawn after starting home diuretics. She denies new symptoms since discharge. No current complaints reported at today?s visit. [facility] Medical History (Updated 03/12/25 @ 16:39 by Felicia Morales NP) Hyperkalemia Acute on chronic combined systolic and diastolic CHF (congestive heart failure) Acute on chronic diastolic CHF (congestive heart failure) Congestive heart failure Heart failure with reduced ejection fraction Anemia Prolapsed hemorrhoids Diabetic nephropathy with proteinuria Hyperlipidemia HTN (hypertension) IBS (irritable bowel syndrome) Prolapsed internal hemorrhoids Chronic kidney disease, stage III (moderate) Obesity (BMI 30-39.9) Mixed hyperlipidemia Hypertensive heart disease Left bundle branch block Bladder prolapse Diabetes mellitus GERD (gastroesophageal reflux disease) Surgical History (Updated 03/01/25 @ 07:35 by Radha Lam) History of bladder repair surgery History of ERCP History of bilateral cataract extraction History of cholecystectomy History of excision of mass History of colonoscopy (~03/19/23) History of ankle surgery Family History Father No problems noted. Mother No problems noted. Family/Other Lung cancer Esophagus cancer Other Mental health disorder Substance use disorder Social History Household Members: Family Household Members Other:: son/grandson Housing: Apartment Do you presently have visiting nurse or other home services: Yes (granddaughter [employer]) Alcohol intake: never Patient Tobacco Use Status: Former Tobacco user Tobacco use type: Cigarette e-Cigarette/Vaping Use: Never Used Second Hand Smoke Exposure: No Advance Directives Date on File: 11/11/24 service: No Current occupational status: disabled Cognitive needs: Yes (cane/walker) Hearing needs: No Vision needs: Yes (glasses) Questionnaire Thrive Questionnaire Date Thrive assessed: 01/28/25 I am a: Parent/Caregiver What is your living situation today?: I have a steady place to live Within the past 12 months, did the food you bought not last and you didn't have the money to get more?: Never true Within the past 12 months, did you worry whether your food would run out before you got money to buy more?: Never true Do you have trouble paying for medicines?: No Do you have trouble getting transportation to medical appointments?: No Do you have trouble paying your heating and electricity bill?: No Do you have trouble taking care of your child, family member or friend?: No Do you have trouble with day-to-day activities such as bathing, preparing meals, shopping, managing finances, etc.?: Yes Are you currently unemployed and looking for a job?: No Are you interested in more education?: No Please select the resources that you would like help with: None Currently or been in a relationship where the following occur: I choose not to answer THRIVE Score: 0 MENDEL-7 AMB Questionnaire MENDEL-7 Date MENDEL - 7 assessed: 12/11/24 Source: Developed by Drs. Vu Harris, Huma Ronak Ricktets and colleagues, with an educational yury from [employer]. Physical exam (Primary Care) Vital Signs: Last Vital Signs Pulse 74 03/12/25 10:57 BP 112/72 03/12/25 10:57 Pulse Ox 95 03/12/25 10:57 Oxygen Delivery Method Room Air 03/12/25 10:57 BMI result Body Mass Index 26.9 Tobacco/Smoking Status: Tobacco use Status Tobacco use date assessed 01/28/25 03/12/25 11:02 Patient Tobacco Use Status Former Tobacco user 03/12/25 11:02 Tobacco use type Cigarette 03/12/25 11:02 e-Cigarette/Vaping Use Never Used 03/12/25 11:02 Thrive Assessment: Date of Thrive Assessment Date Thrive assessed 01/28/25 03/12/25 11:02 Currently or been in a relationship where the following occur: I choose not to answer Const General: no acute distress Nutritional Appearance: well nourished Orientation/consciousness: patient oriented x3 Limitations: language barrier Resp Effort & Inspection: normal respiratory effort Auscultation: clear to auscultation bilaterally Cardio Heart sounds: S1 normal heart sound present and S2 normal heart sound present Neuro General: patient oriented x3 and moves all extremities Psych Speech and movement: Normal speech and movement present Coding Level of Care Code Est Pt Level 4 (32552) Diagnoses Hyperkalemia E87.5 Time Spent (min) 20 Assessment & Plan Assessment & Plan (1) Hyperkalemia: Code(s): E87.5 - Hyperkalemia Category: Medical Plan: Cardiology: - D/C Spironolactone - Lasix PRN, dropped to 20 mg - repeat Labs ordered in 2 weeks to assess Potassium and renal Function. Return/Warning Signs: Instruct patient to return or call for weight gain >2?3 lbs/day, increasing SOB, swelling, decreased urine output, palpitations, dizziness.
[2025-03-12 10:57] VITALS: BP 112/72; PULSE 74; O2SAT 95; BMI 26.9
== END 2025-03-12 11:36 | disposition home or self-care (01) ==
LOC: HO.HMCH 10:54
PROVIDERS: PCP Internal Medicine; Visit Provider Nurse Practitioner Family
DX: E87.5 Hyperkalemia (principal)

== ENCOUNTER → 2025-03-12 10:53 | Outpatient (BNVA) | payer OTHER, SELFPAY | PROVIDERS: PCP Internal Medicine; Visit Provider Nurse Practitioner Family | DX: E87.5 Hyperkalemia (principal) | CPT/HCPCS: 99212 ==